=== PATIENT | male | born 1935 | race Caucasian/White ===

== ENCOUNTER 2020-01-09 13:57 | Outpatient (REF) | payer OTHER, MEDICARE, BC, SELFPAY ==
[2020-01-09 14:06] LABS: MANUAL DIFF FLAG NO
[2020-01-09 14:10] LABS: Basophils Percent Auto 0.2 % (0-2); Eosinophils Absolute Auto 0.1 X10*3/uL (0.0-0.4); Eosinophils Percent Auto 1.5 % (0-4); Hemoglobin 13.1 g/dl (14.0-18.0); Imm Gran Abs Auto 0.03 X10*3/uL (0.00-0.03); Imm Gran Pct Auto 0.5 % (0.0-0.4); Lymphocytes Absolute Auto 1.9 X10*3/uL (1.2-4.9); Lymphocytes Percent Auto 28.7 % (20-40); Mean Corpuscular Hemoglobin 31.3 pg (27.0-33.0); Mean Corpuscular Volume 98.1 fL (80-98); Mean Platelet Volume 10.7 fL (9.4-12.4); Monocytes Absolute Auto 0.8 X10*3/uL (0.1-1.2); Monocytes Percent Auto 12.2 % (2-11); Neutrophils Absolute Auto 3.7 X10*3/uL (2.0-8.3); Neutrophils Percent Auto 56.9 % (45-73); Platelet Count 193 X10*3/uL (160-400); Red Blood Count 4.18 X10*6/uL (4.60-5.80); Red Cell Distribution Width 14.7 % (11.0-16.0); White Blood Count 6.5 X10*3/uL (4.8-10.8)
[2020-01-09 15:17] LABS: Alanine Aminotransferase 23 U/L (0-40); Alkaline Phosphatase 65 U/L (39-117); Anion Gap 13 (12-20); Aspartate Amino Transferase 23 U/L (5-37); Bilirubin Total 0.9 mg/dL (0.0-1.0); Blood Urea Nitrogen 27 mg/dL (9-16); Calcium 8.7 mg/dL (8.4-10.2); Carbon Dioxide 30 mmol/L (22-29); Chloride 101 mmol/L (96-108); Cholesterol 187 mg/dL; Estimated Glomerular Filt Rate 58; HDL Cholesterol 70 mg/dL; LDL Cholesterol Calculated 106 mg/dl; Potassium 4.3 mmol/l (3.3-5.1); Sodium 140 mmol/L (135-145); Total Protein 6.5 g/dL (6.5-8.0); Triglycerides 55 mg/dL
[2020-01-09 15:30] LABS: Glucose Fasting 41 mg/dL (60-99)
--- NOTE | 2020-03-13 15:15 | ECG_ITS ---
Hook-up date: 2020-03-12 16:18:00 Duration: 05:30:00 Test Indications: PERSISTANT AFIB Medications: 85904 QRS complexes 495 Ventricular ectopics which represent 1 % of total QRS comp. * Supraventricular ectopics which represent % of total QRS comp. * Paced QRS complexs which represent % of total QRS comp. VENTRICULAR ECTOPY 467 Isolated 0 Bigeminal Cycles 14 Couplets 0 Runs 0 Beats in Runs * Beats LONGEST at * BPM at :: -- * Beats FASTEST at * BPM at :: -- SUPRAVENTRICULAR ECTOPY * Isolated * Couplets * Runs * Beats in Runs * Beats LONGEST at * BPM at :: -- * Beats FASTEST at * BPM at :: -- HEART RATES 58 MIN at 20:15:22 2020-03-12 122 AVG 193 MAX at 16:22:57 2020-03-12 LONGEST RR 1.4800 secs at 20:23:12 2020-03-12 S-T LEVELS Channel 1 - 128 mm at 16:18:00 2020-03-12 - 128 mm at 16:18:00 2020-03-12 Channel 2 - 128 mm at 16:18:00 2020-03-12 - 128 mm at 16:18:00 2020-03-12 Channel 3 - 128 mm at 03:53:71 -- - 128 mm at 03:53:71 Duration only 5:30 Hrs; Underlying rhythm atrial fibrillation; Average ventricular rate 122/min; About 79% of the time, rate >100/min; Overall, inadequate rate control of atrial fibrillation; Patient did not return diary Referred By: Hilda Jackman Overread By: HILDA JACKMAN
== END 2020-01-09 13:58 | disposition home or self-care (01) ==
LOC: HO.LNP 13:57
PROVIDERS: Visit Provider Family Medicine
DX: I48.91 Unspecified atrial fibrillation (principal); I13.0 Hypertensive heart and chronic kidney disease with heart failure and stage 1 through stage 4 chronic kidney disease, or unspecified chronic kidney disease; I50.9 Heart failure, unspecified; N18.9 Chronic kidney disease, unspecified
CPT/HCPCS: 36415; 80053; 80061; 84443; 85025

== ENCOUNTER → 2020-03-12 14:41 | Outpatient (BNVA) | payer BC, SELFPAY | PROVIDERS: PCP Family Medicine; Referring Provider Family Medicine; Visit Provider Internal Medicine | DX: I48.19 Other persistent atrial fibrillation (principal); I42.9 Cardiomyopathy, unspecified | CPT/HCPCS: 93005; 93226; 99212 ==

== ENCOUNTER → 2020-03-19 14:01 | Outpatient (BNVA) | payer BC, SELFPAY | PROVIDERS: PCP Family Medicine; Referring Provider Family Medicine; Visit Provider Internal Medicine | DX: I48.19 Other persistent atrial fibrillation (principal); I42.9 Cardiomyopathy, unspecified | CPT/HCPCS: 93005; 99212 ==

== ENCOUNTER 2020-04-22 20:41 | Inpatient (IN) | payer MEDICARE, BC, SELFPAY ==
[2020-04-22] VITALS (8 sets, daily range): BP systolic 110–129; BP diastolic 63–94; PULSE 92–146; RESP 16–26; TEMP 36.5–37.6; O2SAT 88–95; BMI 21.8
--- NOTE | 2020-04-22 | ECG_ITS ---
Test Reason : TACHYCARDIA Blood Pressure : / mmHG Vent. Rate : 146 BPM Atrial Rate : 147 BPM P-R Int : 000 ms QRS Dur : 092 ms QT Int : 260 ms P-R-T Axes : 000 097 -65 degrees QTc Int : 405 ms Atrial fibrillation with rapid ventricular response with premature ventricular or aberrantly conducted complexes Rightward axis Nonspecific ST and T wave abnormality Abnormal ECG When compared to the previous EKG of 28 jan 2020, no significant changes Referred By: Generic ED Physician Electronically Signed By:HILDA JACKMAN
--- NOTE | 2020-04-22 | XR_ITS ---
EXAMINATION: XR CHEST CLINICAL INFORMATION: Chest pain. Cough. COMPARISON: Chest x-ray 11/29/2019 TECHNIQUE: Frontal view of the chest was obtained. 9:36 PM FINDINGS: Lung volume is low. No significant central pulmonary vascular congestion. There is a dense left lung base due to left pleural effusion and probable basilar consolidation/atelectasis. There is minimal blunting of the right costophrenic angle, probable small right pleural effusion. XR/XR chest 1V IMPRESSION: Low lung volume. No significant central pulmonary vascular congestion. Dense left lung base due to left pleural effusion and basilar consolidation. Probable small right pleural effusion.
[2020-04-22 21:21] LABS: MANUAL DIFF FLAG NO
[2020-04-22 21:26] LABS: Basophils Percent Auto 0.2 % (0-2); Eosinophils Percent Auto 0.2 % (0-4); Hematocrit 54.3 % (42-52); Hemoglobin 17.2 g/dl (14.0-18.0); Imm Gran Abs Auto 0.04 X10*3/uL (0.00-0.03); Imm Gran Pct Auto 0.5 % (0.0-0.4); Lymphocytes Absolute Auto 1.4 X10*3/uL (1.2-4.9); Lymphocytes Percent Auto 16.1 % (20-40); Mean Corpuscular HGB Conc 31.7 g/dl (31.0-36.0); Mean Corpuscular Hemoglobin 30.7 pg (27.0-33.0); Mean Platelet Volume 11.8 fL (9.4-12.4); Monocytes Absolute Auto 0.8 X10*3/uL (0.1-1.2); Monocytes Percent Auto 9.2 % (2-11); Neutrophils Absolute Auto 6.3 X10*3/uL (2.0-8.3); Neutrophils Percent Auto 73.8 % (45-73); Platelet Count 186 X10*3/uL (160-400); Red Cell Distribution Width 13.7 % (11.0-16.0); White Blood Count 8.5 X10*3/uL (4.8-10.8)
[2020-04-22 21:41] LABS: INTERNATIONAL NORM RATIO 1.9 (0.9-1.1); Prothrombin Time 22.6 SEC (10.8-13.0)
--- NOTE | 2020-04-22 21:43 | ED.GENADULT ---
HPI - General Adult General Chief complaint: Dyspnea Stated complaint: covid Time Seen by Provider: 04/22/20 21:29 Source: patient Mode of arrival: EMS Limitations: no limitations History of Present Illness HPI narrative: 85-year-old male who presents emergency department for evaluation of chest pain shortness of breath and productive cough. The patient states that he developed chest pain approximately 2-3 days prior. Points to his mid sternal area when asked to localize the pain. The pain is a sharp, constant pain which radiates to his back. The patient denied any radiation to his neck, jaw or arms. He states the pain is 5/10 at its worse and is worse with movement. Patient states that he has had a cough over the past 24 hours which is productive of pink frothy phlegm. He denied fever or chills. He states that he was feeling weak and lightheaded. He has been noncompliant with his furosemide since it makes him urinate frequently. Related Data Home Medications Medication Instructions Recorded Confirmed apixaban 5 mg tablet 5 mg PO BID 01/17/20 03/19/20 furosemide 40 mg tablet 40 mg PO DAILY 01/17/20 03/19/20 digoxin 125 mcg (0.125 mg) tablet 125 mcg PO DAILY 03/12/20 03/19/20 metoprolol succinate 25 mg 50 mg PO BID tab 03/19/20 03/19/20 tablet,extended release 24 hr Previous Rx's Medication Instructions Recorded amiodarone 200 mg tablet 200 mg PO DAILY #90 tab 02/21/20 Allergies Allergy/AdvReac Type Severity Reaction Status Date / Time streptomycin [Streptomycin] Allergy Mild UNKNOWN Verified 03/19/20 14:05 Penicillins Allergy Unknown unk Verified 03/19/20 14:05 Sulfa (Sulfonamide Allergy Unknown UNKNOWN Verified 03/19/20 14:05 Antibiotics) [SULFA (SULFONAMIDE ANTIBIOTICS)] Review of Systems Review of Systems: Yes all other systems are reviewed and are negative Neurologic: Reports Abnormal speech present FOR[facility]LY [facility] Past Medical History Medical History Cardiomyopathy, unspecified CHF (congestive heart failure) HTN (hypertension) HTN (hypertension) Persistent atrial fibrillation Family History Family History Father No problems noted. Mother No problems noted. Social History Social History Alcohol intake: never Smoking Status: Never smoker Use of substances other than those prescribed or required for medical reasons: No Advance Directives: No Advance Directives Information Provided: No Physical Exam Vital Signs: Vital Signs: Last Vital Signs Temp 97.7 F 04/22/20 23:42 Pulse 93 04/22/20 23:42 Resp 18 04/22/20 23:42 BP 127/94 H 04/22/20 23:42 Pulse Ox 93 04/22/20 21:53 Body Mass Index 21.8 Const: General: cooperative Nutritional Appearance: other (Very thin) Orientation/consciousness: oriented to person and oriented to place Limitations: no limitations HENMT: Head: Yes normal to inspection, Yes normocephalic and Yes atraumatic Ears: external ears normal General nose exam: Normal external nose present Face and sinus: Yes normal facial exam Mouth: Normal oral and palatal mucosa present Throat: Yes posterior oropharynx normal Eyes: Periorbital: periorbital findings normal Eyelids: Yes eyelids normal Conjunctivae: conjunctivae normal Sclerae: sclerae normal Corneas: corneas normal Pupils: Equal, round and reactive pupils present Direct Ophthalmoscopy: normal light reflex Neck: Neck: Yes full ROM, Yes no lymphadenopathy, Yes no meningeal signs, Yes trachea midline and Yes supple Chest: Chest palpation & inspection: normal inspection of the chest and tenderness (Anterior chest wall tenderness) Resp: Effort & Inspection: able to speak in complete sentences Auscultation: rales bilateral in the lower lung landeros and rhonchi throughout Cardio: Rate: regular rate and tachycardic Rhythm: abnormal rhythm irregularly irregular Heart sounds: S1 normal heart sound present, S2 normal heart sound present and no murmurs GI: Inspection: Yes normal to inspection Palpation (GI): Soft to palpation, nontender, no guarding, not rigid and No hepatosplenomegaly present : General: Yes no CVA tenderness Back/Spine/Pelvis: Back: no CVA tenderness Cervical Spine: normal cervical lordosis Thoracic/Lumbar Spine: thoracic and lumbar spine normal to inspection Skin: Lesions: no lesions Rashes: no rashes Wounds: no wounds Neuro: General: oriented to person, oriented to place and no meningeal signs Cranial nerves: Yes Equal, round and reactive pupils present Cognition (Neuro): normal cognition Speech: Abnormal speech present Motor exam (neuro): 5/5 motor strength present throughout Extrem: General: Yes normal to inspection, Yes full ROM and Yes edema (Symmetric, 2+ pitting) Psych: Appearance: well kempt Mental Status: mental status grossly normal Speech and movement: Normal speech and movement present Affect: normal affect Attitude: cooperative Thought process: Normal thought process present Thought content: Normal thought content present Course Course Course Narrative: 85-year-old male who presents emergency department for evaluation of constant chest pain times 2-3 days which came on gradually, associated with shortness of breath and a pink frothy productive cough, on presentation the patient has atrial fibrillation with a rapid ventricular response, lung exam revealed rhonchi and rales. Patient does have chronic atrial fibrillation cardiomegaly and congestive heart failure. Impression is the patient has CHF at this time. At his rapid ventricular response was treated with diltiazem 15 mg IV, he was also given Lasix 20 mg IV. 2344: The patient so heart rate did come down after receiving the IV diltiazem and is 90-100 beats per minute. He remains in atrial fibrillation. The patient's digoxin level was blood detectable limits. The patient's laboratory evaluation revealed an elevated H&H of 17 and 54.3 and an elevated BUN and creatinine of 41 and 1.8. The patient's BNP was elevated at 1087. Patient's chest x-ray did reveal some increased interstitial markings with bilateral pleural effusions left greater than right and a left lower lung consolidation. The patient's COVID, influenza and RSV tests were negative. Impression is the patient does have some mild CHF with a left lower lobe pneumonia. He does have an elevated lactic acid of 3.3 however I think that a fluid bolus would be contraindicated given his cardiomegaly and his significant peripheral edema. The patient is not hypotensive and he will be treated with Levaquin 750 mg IV for pneumonia after 2 sets of blood cultures are obtained. His chest pain was treated with Tylenol 975 mg orally. I did discuss the patient's presentation with the covering hospitalist the patient will be admitted for further treatment. Medical Decision Making Lab Data Result diagrams: 04/22/20 21:13 04/22/20 21:13 Labs: Lab Results 04/22/20 04/22/20 04/22/20 Range/Units 21:10 21:10 21:12 WBC (4.8-10.8) X10*3/uL RBC (4.60-5.80) X10*6/uL Hgb (14.0-18.0) g/dl Hct (42-52) % MCV (80-98) fL MCH (27.0-33.0) pg MCHC (31.0-36.0) g/dl RDW (11.0-16.0) % Plt Count (160-400) X10*3/uL MPV (9.4-12.4) fL Immature Gran % (Auto) (0.0-0.4) % Neut % (Auto) (45-73) % Lymph % (Auto) (20-40) % Swift % (Auto) (2-11) % Eos % (Auto) (0-4) % Baso % (Auto) (0-2) % Lymph # (Auto) (1.2-4.9) X10*3/uL Swift # (Auto) (0.1-1.2) X10*3/uL Eos # (Auto) (0.0-0.4) X10*3/uL Baso # (Auto) (0.0-0.2) X10*3/uL Abs Immat Gran (auto) (0.00-0.03) X10*3/uL Absolute Neuts (auto) (2.0-8.3) X10*3/uL Absolute Nucleated RBC (0.0-0.012) X10*3/uL Nucleated RBC % (auto) (0.0-0.2) /100WBC PT (10.8-13.0) SEC INR (0.9-1.1) APTT (24.1-38.0) SEC Sodium (135-145) mmol/L Potassium (3.3-5.1) mmol/l Chloride (96-108) mmol/L Carbon Dioxide (22-29) mmol/L Anion Gap (12-20) BUN (9-16) mg/dL Creatinine (0.5-1.4) mg/dL Estim Creat Clear Calc Estimated GFR Random Glucose (60-115) mg/dL Lactic Acid 3.3 H* (0.5-2.0) mmol/L Calcium (8.4-10.2) mg/dL Total Bilirubin (0.0-1.0) mg/dL AST (5-37) U/L ALT (0-40) U/L Alkaline Phosphatase (39-117) U/L Troponin I High Sens 26.0 (<3.5-35.0) ng/L B-Natriuretic Peptide 1087 H (<100) pg/mL Total Protein (6.5-8.0) g/dL Albumin (3.5-5.0) g/dL Digoxin (0.8-2.0) ng/mL Coronavirus (PCR) NEGATIVE (Negative) Influenza Type A (PCR) NEGATIVE (Negative) Influenza Type B (PCR) NEGATIVE (Negative) RSV RNA Qual (PCR) NEGATIVE (Negative) 04/22/20 04/22/20 04/22/20 Range/Units 21:13 21:13 21:13 WBC 8.5 (4.8-10.8) X10*3/uL RBC 5.60 D (4.60-5.80) X10*6/uL Hgb 17.2 D (14.0-18.0) g/dl Hct 54.3 H D (42-52) % MCV 97.0 (80-98) fL MCH 30.7 (27.0-33.0) pg MCHC 31.7 (31.0-36.0) g/dl RDW 13.7 (11.0-16.0) % Plt Count 186 (160-400) X10*3/uL MPV 11.8 (9.4-12.4) fL Immature Gran % (Auto) 0.5 H (0.0-0.4) % Neut % (Auto) 73.8 H (45-73) % Lymph % (Auto) 16.1 L (20-40) % Swift % (Auto) 9.2 (2-11) % Eos % (Auto) 0.2 (0-4) % Baso % (Auto) 0.2 (0-2) % Lymph # (Auto) 1.4 (1.2-4.9) X10*3/uL Swift # (Auto) 0.8 (0.1-1.2) X10*3/uL Eos # (Auto) 0.0 (0.0-0.4) X10*3/uL Baso # (Auto) 0.0 (0.0-0.2) X10*3/uL Abs Immat Gran (auto) 0.04 H (0.00-0.03) X10*3/uL Absolute Neuts (auto) 6.3 (2.0-8.3) X10*3/uL Absolute Nucleated RBC 0.000 (0.0-0.012) X10*3/uL Nucleated RBC % (auto) 0.0 (0.0-0.2) /100WBC PT 22.6 H (10.8-13.0) SEC INR 1.9 H (0.9-1.1) APTT 42.9 H (24.1-38.0) SEC Sodium 139 (135-145) mmol/L Potassium 5.1 (3.3-5.1) mmol/l Chloride 103 (96-108) mmol/L Carbon Dioxide 20 L (22-29) mmol/L Anion Gap 21 H (12-20) BUN 41 H D (9-16) mg/dL Creatinine 1.81 H (0.5-1.4) mg/dL Estim Creat Clear Calc 30.8 Estimated GFR 36 Random Glucose 156 H (60-115) mg/dL Lactic Acid (0.5-2.0) mmol/L Calcium 9.8 D (8.4-10.2) mg/dL Total Bilirubin 1.4 H (0.0-1.0) mg/dL AST 36 D (5-37) U/L ALT 49 H (0-40) U/L Alkaline Phosphatase 81 D (39-117) U/L Troponin I High Sens (<3.5-35.0) ng/L B-Natriuretic Peptide (<100) pg/mL Total Protein 7.4 (6.5-8.0) g/dL Albumin 4.5 (3.5-5.0) g/dL Digoxin (0.8-2.0) ng/mL Coronavirus (PCR) (Negative) Influenza Type A (PCR) (Negative) Influenza Type B (PCR) (Negative) RSV RNA Qual (PCR) (Negative) 04/22/20 Range/Units 22:21 WBC (4.8-10.8) X10*3/uL RBC (4.60-5.80) X10*6/uL Hgb (14.0-18.0) g/dl Hct (42-52) % MCV (80-98) fL MCH (27.0-33.0) pg MCHC (31.0-36.0) g/dl RDW (11.0-16.0) % Plt Count (160-400) X10*3/uL MPV (9.4-12.4) fL Immature Gran % (Auto) (0.0-0.4) % Neut % (Auto) (45-73) % Lymph % (Auto) (20-40) % Swift % (Auto) (2-11) % Eos % (Auto) (0-4) % Baso % (Auto) (0-2) % Lymph # (Auto) (1.2-4.9) X10*3/uL Swift # (Auto) (0.1-1.2) X10*3/uL Eos # (Auto) (0.0-0.4) X10*3/uL Baso # (Auto) (0.0-0.2) X10*3/uL Abs Immat Gran (auto) (0.00-0.03) X10*3/uL Absolute Neuts (auto) (2.0-8.3) X10*3/uL Absolute Nucleated RBC (0.0-0.012) X10*3/uL Nucleated RBC % (auto) (0.0-0.2) /100WBC PT (10.8-13.0) SEC INR (0.9-1.1) APTT (24.1-38.0) SEC Sodium (135-145) mmol/L Potassium (3.3-5.1) mmol/l Chloride (96-108) mmol/L Carbon Dioxide (22-29) mmol/L Anion Gap (12-20) BUN (9-16) mg/dL Creatinine (0.5-1.4) mg/dL Estim Creat Clear Calc Estimated GFR Random Glucose (60-115) mg/dL Lactic Acid (0.5-2.0) mmol/L Calcium (8.4-10.2) mg/dL Total Bilirubin (0.0-1.0) mg/dL AST (5-37) U/L ALT (0-40) U/L Alkaline Phosphatase (39-117) U/L Troponin I High Sens (<3.5-35.0) ng/L B-Natriuretic Peptide (<100) pg/mL Total Protein (6.5-8.0) g/dL Albumin (3.5-5.0) g/dL Digoxin < 0.3 L (0.8-2.0) ng/mL Coronavirus (PCR) (Negative) Influenza Type A (PCR) (Negative) Influenza Type B (PCR) (Negative) RSV RNA Qual (PCR) (Negative) Discharge Plan Discharge Clinical Impression: Atrial fibrillation with RVR, CHF (congestive heart failure), Pneumonia Patient Disposition: Admitted As Inpatient Prescriptions: No Action amiodarone 200 mg tablet 200 mg PO DAILY Qty: 90 RF: 1 furosemide 40 mg tablet 40 mg PO DAILY RF: 0 Eliquis 5 mg tablet 5 mg PO BID RF: 0 digoxin 125 mcg (0.125 mg) tablet 125 mcg PO DAILY RF: 0 metoprolol succinate 25 mg tablet extended release 24 hr 50 mg PO BID RF: 0
[2020-04-22 21:44] LABS: Partial Thromboplastin Time 42.9 SEC (24.1-38.0)
[2020-04-22 21:49] LABS: Lactic Acid 3.3 mmol/L (0.5-2.0)
[2020-04-22] MEDS: Furosemide 20 MG/2 ML VIAL IVPUSH (21:50)
[2020-04-22] MEDS: dilTIAZem HCL 50 MG/10 ML VIAL 15 MG IVPUSH (21:50)
[2020-04-22 21:53] LABS: Alanine Aminotransferase 49 U/L (0-40); Albumin Level 4.5 g/dL (3.5-5.0); Alkaline Phosphatase 81 U/L (39-117); Anion Gap 21 (12-20); Aspartate Amino Transferase 36 U/L (5-37); Bilirubin Total 1.4 mg/dL (0.0-1.0); Blood Urea Nitrogen 41 mg/dL (9-16); Calcium 9.8 mg/dL (8.4-10.2); Carbon Dioxide 20 mmol/L (22-29); Chloride 103 mmol/L (96-108); Creatinine Clr Calc Pharmacy 30.8; Estimated Glomerular Filt Rate 36; Glucose Random 156 mg/dL (60-115); Potassium 5.1 mmol/l (3.3-5.1); Sodium 139 mmol/L (135-145); Total Protein 7.4 g/dL (6.5-8.0)
[2020-04-22 22:18] LABS: B Type Natriuretic Peptide 1087 pg/mL (<100)
[2020-04-22 22:32] LABS: Influenza A PCR NEGATIVE (Negative); Influenza B PCR NEGATIVE (Negative); Resp Syncy Virus RNA Qual PCR NEGATIVE (Negative); SARS COV2 PCR INHOUSE NEGATIVE (Negative)
[2020-04-22 23:17] LABS: Digoxin < 0.3 ng/mL (0.8-2.0)
[2020-04-22 23:18] LABS: Reflex Lactate? Lactic Acid Added
[2020-04-22] MEDS: levoFLOXacin/D5W 750 MG/150 ML PIGGYBACK 100 MG IV (23:43)
[2020-04-22] MEDS: Acetaminophen 325 MG TABLET 975 MG PO (23:43)
[2020-04-23] VITALS (20 sets, daily range): BP systolic 98–156; BP diastolic 55–103; PULSE 78–136; RESP 16–28; TEMP 36.2–37.3; O2SAT 93–98; BMI 20.2
[2020-04-23] MEDS: Furosemide 40 MG TABLET PO (00:08)
--- NOTE | 2020-04-23 00:08 | PC.NURSE ---
Hospitalist at bedside for eval. ED techs at bedside to obtain labs. VSS. Pt medicated per JUN. Continue to monitor.
[2020-04-23 00:45] LABS: ~Lactic Acid-LAB USE ONLY 3.4 mmol/L (0.5-2.0)
[2020-04-23 00:52] LABS: Troponin-I High Sensitivity 26.5 ng/L (<3.5-35.0)
[2020-04-23] MEDS: 0.9 % Sodium Chloride Flush 3 ML SYRINGE IVFLUSH ×3 (00:54→18:01)
[2020-04-23 02:16] LABS: Reflex Lactate? 2 Y
[2020-04-23 03:09] LABS: ~Lactic Acid-LAB USE ONLY 2.7 mmol/L (0.5-2.0)
--- NOTE | 2020-04-23 03:12 | PC.NURSE ---
Addendum entered by Ninfa Hanley 04/23/20 03:39: Pt denies all urinary symptoms at this time. Original Note: This RN at bedside to empty urinal. Urine noted to be benji in color, foul smelling with pyuria and thick sediment. UA sent to lab. Pt awake, resting in bed, denies pain/discomfort. VSS, HR noted to be elevated @ 115-120 bpm. Continue to monitor.
[2020-04-23 03:23] LABS: Glucose Urine UA 100 MG/DL (NEG); Leukocyte Esterase Urine 1+ (NEG); Nitrite Urine POS (NEG); PH 6.5 (5.0-8.0); Urine Blood 3+ (NEG); Urine Ketones NEG (NEG); Urine Protein TRACE MG/DL (NEG-TRACE)
[2020-04-23 03:24] LABS: Appearance Urine TURBID; Color Urine YELLOW
--- NOTE | 2020-04-23 03:25 | PC.NURSE ---
Dr Vazquez contacted via [place] Text due to tachycardia. Pt resting in bed, denies symptoms, HR noted to be 136-150 bpm. Awaiting orders from Taylor.
[2020-04-23 03:40] LABS: Bacteria Urine 4+ /LPF; Mucus Urine 4+ /LPF; RBC Urine 0 /HPF (0); Squamous Epithelial Cell Urine 2+ /LPF
[2020-04-23 03:41] LABS: Oval Fat Bodies Urine NOTED
[2020-04-23] MEDS: Labetalol HCL 100 MG/20 ML VIAL 10 MG IVPUSH (03:43)
[2020-04-23] MEDS: hydrALAZINE HCl 20 MG/ML VIAL 5 MG IVPUSH (03:45)
[2020-04-23] MEDS: cefTRIAXone sodium 1 GM in 0.9 % Sodium Chloride 50 ML IV (03:46)
--- NOTE | 2020-04-23 03:50 | PC.NURSE ---
Medicated per MAR. Pt denies pain/discomfort, resting in bed. VSS. Continue to monitor.
[2020-04-23] MEDS: ondansetron HCL 4 MG/2 ML VIAL IVPUSH (05:09)
[2020-04-23] MEDS: Digoxin 0.5 MG/2 ML AMPUL 0.25 MG IVPUSH (05:20)
[2020-04-23] MEDS: Metoprolol Tartrate 5 MG/5 ML VIAL IVPUSH (05:21)
--- NOTE | 2020-04-23 05:22 | P.HPHOSP_ITS ---
History of Present Illness Date of Service: 04/22/20 Chief Complaint: Chest pain, shortness of breath This is an 85-year-old male with past medical history of CHF, hypertension, AFib who presents to the hospital with complaints of shortness of breath as well as midsternal chest pain. He is also complaining of exhaustion, fatigue. Symptoms started about 2-3 days ago, worsening, his shortness of breath is with minimal exertion. Chest pain is midsternal, nonradiating, 5/10, worse with movement, does not change with deep inspiration, denies any productive cough, denies any fever or chills. He just reports that he has had very low appetite, completely weak and exhausted for the past few days. Denies any fever or chills. Denies any recent travel or sick contacts. Denies any palpitations. When asked about his medications report that he misses most of the medications including his Lasix most of the time because the Lasix makes him pee a lot and his other medications he forgets to take. Reports orthopnea and PND. He is also complaining of lower extremity edema. He is also having urinary frequency and urgency. He otherwise denies any abdominal pain, no diarrhea constipation. To have a heart rate of 115 going up to 136, respiratory rate of 22, blood pressure of 127/94, For WBC count 15.8, hemoglobin of 17.9, hematocrit 55.5, PT of 22.6, INR of 1.9, PTT of 42.9, , potassium 5.1, lactic acid of 3.3, 41, creatinine of 1.81 (baseline around 1.1), BNP of 1087, and UA that is positive for nitrites, leukocyte Estrace and WBC. Chest x-ray shows bilateral pleural effusion as well as leftbasilar consolidation Past medical history: AFib on apixaban, CHF on Lasix, hypertension- seems to be noncompliant with all of his medications Past surgical history: Appendectomy Family history: Significant for heart disease Social history: Comes from home, usually ambulates independently, denies any tobacco alcohol or illicit drugs Review of Systems Review of Systems: Yes all other systems are reviewed and are negative Neurologic: Reports Abnormal speech present [facility] Medical History Cardiomyopathy, unspecified CHF (congestive heart failure) HTN (hypertension) HTN (hypertension) Persistent atrial fibrillation Family History Father No problems noted. Mother No problems noted. Social History Alcohol intake: never Smoking Status: Never smoker Use of substances other than those prescribed or required for medical reasons: No Advance Directives: No Advance Directives Information Provided: No Meds Allergies Allergy/AdvReac Type Severity Reaction Status Date / Time streptomycin [Streptomycin] Allergy Mild UNKNOWN Verified 03/19/20 14:05 Penicillins Allergy Unknown unk Verified 03/19/20 14:05 Sulfa (Sulfonamide Allergy Unknown UNKNOWN Verified 03/19/20 14:05 Antibiotics) [SULFA (SULFONAMIDE ANTIBIOTICS)] Home Medications Medication Instructions Recorded Confirmed Type apixaban 5 mg tablet 5 mg PO BID 01/17/20 04/23/20 History furosemide 40 mg tablet 40 mg PO DAILY 01/17/20 04/23/20 History digoxin 125 mcg (0.125 mg) tablet 125 mcg PO DAILY 03/12/20 04/23/20 History metoprolol succinate 25 mg 25 mg PO BID tab 03/19/20 04/23/20 History tablet,extended release 24 hr Physical Exam Vital Signs and Narrative: Vital Signs: Last Vital Signs Temp 97.9 F 04/23/20 05:10 Pulse 128 H 04/23/20 05:21 Resp 28 H 04/23/20 05:16 BP 128/96 H 04/23/20 05:21 Pulse Ox 95 04/23/20 05:16 Body Mass Index 20.2 Const: Other: Ill-appearing General: cooperative, no acute distress and poor hygiene Orientation/consciousness: patient oriented x3 Eyes: General: appearance normal, both eyes and all related structures Resp: Effort & Inspection: normal respiratory effort and able to speak in complete sentences Cardio: Rate: regular rate Rhythm: regular rhythm GI: Palpation (GI): Soft to palpation Auscultation: normal bowel sounds Skin: Other: chronic skin changes of venous stasis, scaly skin of shins Neuro: General: patient oriented x3 Cognition (Neuro): normal cognition Speech: Abnormal speech present Extrem: Other: 2+ pedal edema bilaterally, skin changes as above Results Labs CBC and Chem 7: 04/23/20 05:22 04/22/20 21:13 Labs: Laboratory Results - last 24 hr 04/22/20 04/22/20 04/22/20 21:10 21:10 21:12 MCV MCH MCHC RDW Plt Count MPV Immature Gran % (Auto) Neut % (Auto) Lymph % (Auto) [place] % (Auto) Eos % (Auto) Baso % (Auto) Lymph # (Auto) [place] # (Auto) Eos # (Auto) Baso # (Auto) Abs Immat Gran (auto) Absolute Neuts (auto) Absolute Nucleated RBC Nucleated RBC % (auto) PT INR APTT Anion Gap Estim Creat Clear Calc Estimated GFR Random Glucose Lactic Acid 3.3 H* Lactic Acid Fup @ 2Hr Lactic Acid Fup @ 4Hr Calcium Total Bilirubin AST ALT Alkaline Phosphatase Troponin I High Sens 26.0 B-Natriuretic Peptide 1087 H Total Protein Albumin Urine Color Urine Appearance Urine pH Ur Specific [place] Urine Protein Urine Glucose (UA) Urine Ketones Urine Blood Urine Nitrite Ur Leukocyte Esterase Urine RBC Urine WBC Ur Squamous Epith Cells Urine Bacteria Urine Mucus Urine Yeast Ur Oval Fat Bodies Digoxin Coronavirus (PCR) NEGATIVE Influenza Type A (PCR) NEGATIVE Influenza Type B (PCR) NEGATIVE RSV RNA Qual (PCR) NEGATIVE 04/22/20 04/22/20 04/22/20 21:13 21:13 21:13 MCV 97.0 MCH 30.7 MCHC 31.7 RDW 13.7 Plt Count 186 MPV 11.8 Immature Gran % (Auto) 0.5 H Neut % (Auto) 73.8 H Lymph % (Auto) 16.1 L [place] % (Auto) 9.2 Eos % (Auto) 0.2 Baso % (Auto) 0.2 Lymph # (Auto) 1.4 [place] # (Auto) 0.8 Eos # (Auto) 0.0 Baso # (Auto) 0.0 Abs Immat Gran (auto) 0.04 H Absolute Neuts (auto) 6.3 Absolute Nucleated RBC 0.000 Nucleated RBC % (auto) 0.0 PT 22.6 H INR 1.9 H APTT 42.9 H Anion Gap 21 H Estim Creat Clear Calc 30.8 Estimated GFR 36 Random Glucose 156 H Lactic Acid Lactic Acid Fup @ 2Hr Lactic Acid Fup @ 4Hr Calcium 9.8 D Total Bilirubin 1.4 H AST 36 D ALT 49 H Alkaline Phosphatase 81 D Troponin I High Sens B-Natriuretic Peptide Total Protein 7.4 Albumin 4.5 Urine Color Urine Appearance Urine pH Ur Specific [place] Urine Protein Urine Glucose (UA) Urine Ketones Urine Blood Urine Nitrite Ur Leukocyte Esterase Urine RBC Urine WBC Ur Squamous Epith Cells Urine Bacteria Urine Mucus Urine Yeast Ur Oval Fat Bodies Digoxin Coronavirus (PCR) Influenza Type A (PCR) Influenza Type B (PCR) RSV RNA Qual (PCR) 04/22/20 04/23/20 04/23/20 22:21 00:12 00:12 MCV MCH MCHC RDW Plt Count MPV Immature Gran % (Auto) Neut % (Auto) Lymph % (Auto) [place] % (Auto) Eos % (Auto) Baso % (Auto) Lymph # (Auto) [place] # (Auto) Eos # (Auto) Baso # (Auto) Abs Immat Gran (auto) Absolute Neuts (auto) Absolute Nucleated RBC Nucleated RBC % (auto) PT INR APTT Anion Gap Estim Creat Clear Calc Estimated GFR Random Glucose Lactic Acid Lactic Acid Fup @ 2Hr 3.4 H* Lactic Acid Fup @ 4Hr Calcium Total Bilirubin AST ALT Alkaline Phosphatase Troponin I High Sens 26.5 B-Natriuretic Peptide Total Protein Albumin Urine Color Urine Appearance Urine pH Ur Specific [place] Urine Protein Urine Glucose (UA) Urine Ketones Urine Blood Urine Nitrite Ur Leukocyte Esterase Urine RBC Urine WBC Ur Squamous Epith Cells Urine Bacteria Urine Mucus Urine Yeast Ur Oval Fat Bodies Digoxin < 0.3 L Coronavirus (PCR) Influenza Type A (PCR) Influenza Type B (PCR) RSV RNA Qual (PCR) 04/23/20 04/23/20 02:38 03:07 MCV MCH MCHC RDW Plt Count MPV Immature Gran % (Auto) Neut % (Auto) Lymph % (Auto) [place] % (Auto) Eos % (Auto) Baso % (Auto) Lymph # (Auto) [place] # (Auto) Eos # (Auto) Baso # (Auto) Abs Immat Gran (auto) Absolute Neuts (auto) Absolute Nucleated RBC Nucleated RBC % (auto) PT INR APTT Anion Gap Estim Creat Clear Calc Estimated GFR Random Glucose Lactic Acid Lactic Acid Fup @ 2Hr Lactic Acid Fup @ 4Hr 2.7 H* Calcium Total Bilirubin AST ALT Alkaline Phosphatase Troponin I High Sens B-Natriuretic Peptide Total Protein Albumin Urine Color YELLOW Urine Appearance TURBID Urine pH 6.5 Ur Specific [place] 1.020 Urine Protein TRACE Urine Glucose (UA) 100 H Urine Ketones NEG Urine Blood 3+ H Urine Nitrite POS H Ur Leukocyte Esterase 1+ H Urine RBC 0 Urine WBC 15-29 H Ur Squamous Epith Cells 2+ Urine Bacteria 4+ Urine Mucus 4+ Urine Yeast 2+ Ur Oval Fat Bodies NOTED Digoxin Coronavirus (PCR) Influenza Type A (PCR) Influenza Type B (PCR) RSV RNA Qual (PCR) Imaging Radiologist's Impressions: Impressions Chest X-Ray 04/22/20 00:00 IMPRESSION: Low lung volume. No significant central pulmonary vascular congestion. Dense left lung base due to left pleural effusion and basilar consolidation. Probable small right pleural effusion. Assessment and Plan (1) Atrial fibrillation with RVR: Status: Acute (2) Essential hypertension: Status: Acute (3) Pneumonia: Qualifiers: Laterality: left Lung location: lower lobe of lung Pneumonia type: due to unspecified organism Qualified Code(s): J18.9 - Pneumonia, unspecified organism Status: Acute (4) Acute kidney injury superimposed on CKD: Status: Acute (5) CHF exacerbation: Qualifiers: Heart failure type: unspecified Qualified Code(s): I50.9 - Heart failure, unspecified Status: Acute (6) Chest pain: Status: Acute (7) Sepsis: Status: Acute (8) UTI (urinary tract infection): Status: Acute This is an 85-year-old male past medical history of CHF, AFib, who presents to the hospital with complaint of shortness of breath as well as chest pain. # Dyspnea - most likely secondary to CHF exacerbation as well pneumonia, less likely secondary to PE - chest x-ray shows evidence of pulmonary congestion, has elevated BNP, chest x- ray is also significant for left-sided consolidation - has leukocytosis, tachycardia, tachypnea - came in satting 95% on room air Plan: - will treat his CHF exacerbation with Lasix, pneumonia with IV antibiotics, - follow blood cultures - monitor respiratory status # sepsis - most likely secondary to UTI as well as pneumonia - UA positive, chest x-ray is also positive for infiltrate - has leukocytosis, tachycardia, tachypnea - will treat with IV antibiotics, follow blood cultures, hold off on IV fluids given his CHF exacerbation # CHF exacerbation - has elevated BNP, pleural effusion, lower extremity edema, orthopnea PND - most likely secondary to noncompliance as well as exacerbated by acute infection - has an ejection fraction of 15-20% per echo done in October 2019 Plan: - will start him on 40 IV Lasix - daily weight, strict I&O, low-sodium diet - will obtain an echocardiogram - cardiology consulted # chest pain - atypical - troponin slightly positive 26 with no delta - no EKG changes suggestive of ACS - most likely secondary to AFib with RVR as well as CHF exacerbation - will monitor on telemetry -consult cardiology and repeat echocardiogram # UTI - urinary symptoms as well as UA positive - will treat with antibiotics - follow cultures # AFib with RVR - most likely secondary to noncompliance with medications as well as acute infection - per cardiology recommendation in the past patient to not be started on Cardizem given his history of low ejection fraction - will continue apixaban, give him 1 dose of IV 0.25 digoxin, continue his amiodarone, continue his metoprolol # pneumonia - infiltrate on chest x-ray, has leukocytosis, dyspnea, - COVID-19 PCR negative, RSV and influenza negative - will start him on IV antibiotics as above - follow cultures # HTN - elevated - resume home meds DVT prophylaxis: Apixaban
[2020-04-23 05:44] LABS: MANUAL DIFF FLAG NO
--- NOTE | 2020-04-23 05:45 | PC.NURSE ---
Addendum entered by Jason Adrian RN 04/23/20 06:15: dr gallegos updated r/t molst form..icu pa present on unit and interviewed patient...code status changed to dnr/dni Original Note: ADMIT TO 260-1 IMC OVERFLOW...AWAKE..ALERT...VAGUE RESPONSES TO QUESTIONS...O2 5 L/M..HIDALGO..FINE DIFFUSE CRACKLES LOWER ROMO...MONITOR ATRIAL FIB HR 120'S-130'S...SBP 120'S-130'S...DBP 90'S...NAILBEDS DUSKY/CYANOTIC..UNABLE TO OBTAIN PERIPHERAL SAO2 READINGS...SAO2 95% VIA RIGHT EARLOBE...DR GALLEGOS UPDATED R/T TO HR/BP/LAB-WORK/EPISODE VOMITING ON ARRIVAL...DIGOXIN 0.25MG IV X1 & LOPRESSOR 5 MG IV X1...REMAINS ATRIAL FIB..CURRENTLY HR 100'S..VOIDED 150ml URINE....LEGS WITH MARKED EDEMA..DENIES CHEST PAIN
[2020-04-23 05:47] LABS: Basophils Percent Auto 0.1 % (0-2); Hematocrit 55.5 % (42-52); Hemoglobin 17.9 g/dl (14.0-18.0); Imm Gran Abs Auto 0.06 X10*3/uL (0.00-0.03); Imm Gran Pct Auto 0.4 % (0.0-0.4); Lymphocytes Absolute Auto 0.8 X10*3/uL (1.2-4.9); Lymphocytes Percent Auto 5.3 % (20-40); Mean Corpuscular HGB Conc 32.3 g/dl (31.0-36.0); Mean Corpuscular Hemoglobin 31.3 pg (27.0-33.0); Monocytes Absolute Auto 0.9 X10*3/uL (0.1-1.2); Monocytes Percent Auto 5.7 % (2-11); Neutrophils Percent Auto 88.5 % (45-73); Platelet Count 181 X10*3/uL (160-400); Red Blood Count 5.72 X10*6/uL (4.60-5.80); Red Cell Distribution Width 13.7 % (11.0-16.0); White Blood Count 15.8 X10*3/uL (4.8-10.8)
[2020-04-23 06:19] LABS: Anion Gap 22 (12-20); Blood Urea Nitrogen 42 mg/dL (9-16); Calcium 9.2 mg/dL (8.4-10.2); Carbon Dioxide 17 mmol/L (22-29); Chloride 104 mmol/L (96-108); Creatinine Clr Calc Pharmacy 29.6; Estimated Glomerular Filt Rate 37; Glucose Random 141 mg/dL (60-115); Potassium 5.3 mmol/l (3.3-5.1); Sodium 138 mmol/L (135-145)
[2020-04-23] MEDS: Azithromycin 500 MG in 0.9 % Sodium Chloride 250 ML 125 MG IV (08:47)
[2020-04-23] MEDS: Amiodarone HCL 200 MG TABLET PO (08:51)
[2020-04-23] MEDS: Furosemide 40 MG/4 ML VIAL IVPUSH ×2 (08:51→18:00)
[2020-04-23] MEDS: Apixaban 5 MG TABLET PO ×2 (08:51→22:16)
[2020-04-23] MEDS: Digoxin 0.125 MG TABLET PO (08:52)
[2020-04-23] MEDS: Metoprolol Succinate ER 25 MG TAB.ER.24H PO ×2 (08:52→11:18)
--- NOTE | 2020-04-23 09:39 | HO.PM.IMPN ---
Subjective Subjective Date of Service: 04/23/20 Interval History: sob Cardiovascular Cardiovascular: Reports no additional cardiovascular complaints Respiratory Respiratory: Reports no additional respiratory complaints Physical Exam Vital Signs: Vital Signs: Last Vital Signs Temp 98.6 F 04/23/20 08:00 Pulse 93 04/23/20 08:52 Resp 24 H 04/23/20 08:00 BP 126/82 04/23/20 08:52 Pulse Ox 96 04/23/20 08:00 Body Mass Index 20.2 General: AO X 3, no acute distress Resp: diminsihed CVS: S1,S2,rapid irregular GI: soft, non tender, non distended Neuro: motor grossly intact Psych: appropriate affect Objective Data Current Medications Generic Name Dose Route Start Last Admin Trade Name Freq PRN Reason Stop Dose Admin Acetaminophen 650 mg 04/22/20 23:51 Acetaminophen 325 Mg Tablet PO Q6H PRN Pain, Mild (Pain Scale 1-3) Amiodarone HCl 200 mg 04/23/20 09:00 04/23/20 08:51 Amiodarone Hcl 200 Mg Tablet PO 200 mg DAILY KEAGAN Administration Apixaban 5 mg 04/23/20 09:00 04/23/20 08:51 Apixaban 5 Mg Tablet PO 5 mg BID KEAGAN Administration Digoxin 0.125 mg 04/23/20 09:00 04/23/20 08:52 Digoxin 0.125 Mg Tablet PO 0.125 mg DAILY KEAGAN Administration Docusate Sodium 100 mg 04/22/20 23:51 Docusate Sodium 100 Mg Capsule PO DAILY PRN Constipation Furosemide 40 mg 04/23/20 09:00 04/23/20 08:51 Furosemide 40 Mg/4 Ml Vial IVPUSH 40 mg BID@0900,1800 KEAGAN Administration Protocol Ceftriaxone Sodium 1 gm/ 50 mls @ 100 mls/hr 04/23/20 04:00 04/23/20 04:41 Sodium Chloride IV Infused Q24H KEAGAN Infusion Azithromycin 500 mg/ Sodium 250 mls @ 125 mls/hr 04/23/20 07:00 04/23/20 08:47 Chloride IV 125 mls/hr Q24H KEAGAN Administration Metoprolol Succinate 25 mg 04/23/20 09:00 04/23/20 08:52 Metoprolol Succinate Er 25 Mg Tab.Er.24h PO 25 mg BID KEAGAN Administration Protocol Ondansetron HCl 4 mg 04/22/20 23:51 04/23/20 05:09 Ondansetron Hcl 4 Mg/2 Ml Vial IVPUSH 4 mg Q8H PRN Administration Nausea and Vomiting Sodium Chloride 3 ml 04/23/20 00:00 04/23/20 08:50 0.9 % Sodium Chloride Flush 3 Ml Syringe IVFLUSH 3 ml QSHIFT KEAGAN Administration Labs CBC & Chem 7: 04/23/20 05:22 04/23/20 05:22 Assessment and Plan (1) Atrial fibrillation with RVR: Status: Acute (2) Essential hypertension: Status: Acute (3) Pneumonia: Status: Acute (4) Acute kidney injury superimposed on CKD: Status: Acute (5) CHF exacerbation: Status: Acute (6) Chest pain: Status: Acute (7) Sepsis: Status: Acute (8) UTI (urinary tract infection): Status: Acute Assessment and Plan: 85-year-old male past medical history of CHF, AFib, who presented to the hospital with complaint of shortness of breath as well as chest pain. sepsis poa and acute hypoxic respiraotry failrue due to pneumonia/uti and acute on chronic systolic chf lasix, cardio, rocephin, azithro, follow up cultures chest pain resolved troponins negative afib with rvr continue eliquis, amio, dig, metoporolol,
--- NOTE | 2020-04-23 09:42 | MHC.CM.PN ---
pt lives alone in home. he has a cousin that lives next door and is close c his other neighbors. one of these libertarian's will provide transportation at [place]. pt has a cane that he uses sometimes and a ch lift to the second floor. he is active c a vna that sees him weekly but he cannot remember the name of the agency at this time. pt denies the need for any other svcs. he reports that he is very independent at baseline. ny plan is to return home c vna that he is already active c. cm to cont. to follow.
--- NOTE | 2020-04-23 10:00 | MHC.CLN ---
PT IS MODERATELY MALNOURISHED WILL START ENSURE TID TO INCREASE PO CONTINUE 2GM NA DIET SEE ALSO CLINICAL NUTRITION ASSESSMENT
--- NOTE | 2020-04-23 10:38 | PM.CNCAR ---
History of Present Illness History of Present Illness Date of Service: 04/23/20 Consult reason: atrial fibrillation Chief complaint: A FIB W RVR, CHF Narrative: This is a cardiology consultation regarding atrial fibrillation. Patient is well known to us. He has difficult to control atrial fibrillation. It has been paroxysmal for more than a decade but in the last year or so he has essentially been atrial fibrillation throughout. He has had several hospitalizations for the same. We did have a plan for JUSTO/cardioversion, but during that hospitalization, he had acute respiratory failure requiring ICU stay. Procedure itself was then abandoned. There has always been a question if he is compliant with all his medications but he states that he is indeed taking his medications at home. He was admitted with complaints including shortness of breath, nonradiating, midsternal chest pain, generalized weakness as well as fatigue. To me however he states that he did not have any chest pain or shortness of breath and he came mainly because of exertion fatigue. He is being treated for combination of pneumonia and heart failure. Review of Systems Review of Systems: Yes all other systems are reviewed and are negative Cardiovascular: Cardiovascular: Reports as per HPI, Reports no additional cardiovascular complaints, Denies acrocyanosis, Denies cool extremities, Denies painful fingertips, Reports chest pain, Denies chest pain at rest, Denies diaphoresis, Denies syncope, Denies irregular heart rhythm, Denies claudication, Denies leg edema, Denies lightheadedness, Denies palpitations and Reports dyspnea Respiratory: Respiratory: Reports cough and Reports dyspnea Neurologic: Reports Abnormal speech present and Denies syncope Endocrine: Endocrine: Denies palpitations [facility] Past Medical History Medical History Cardiomyopathy, unspecified CHF (congestive heart failure) HTN (hypertension) HTN (hypertension) Persistent atrial fibrillation Family History Family History Father No problems noted. Mother No problems noted. Social History Social History Alcohol intake: never Smoking Status: Never smoker Use of substances other than those prescribed or required for medical reasons: No Currently Displaying Signs/Symptoms of Drug Intoxication Withdrawal: No Advance Directives: No Advance Directives Information Provided: No Do you have thoughts of harming others: None Do you have a plan to hurt others: No Plan service: Yes Current occupational status: retired Meds Allergies Allergy/AdvReac Type Severity Reaction Status Date / Time streptomycin [Streptomycin] Allergy Mild UNKNOWN Verified 03/19/20 14:05 Penicillins Allergy Unknown unk Verified 03/19/20 14:05 Sulfa (Sulfonamide Allergy Unknown UNKNOWN Verified 03/19/20 14:05 Antibiotics) [SULFA (SULFONAMIDE ANTIBIOTICS)] Home Medications Medication Instructions Recorded Confirmed Type apixaban 5 mg tablet 5 mg PO BID 01/17/20 04/23/20 History furosemide 40 mg tablet 40 mg PO DAILY 01/17/20 04/23/20 History digoxin 125 mcg (0.125 mg) tablet 125 mcg PO DAILY 03/12/20 04/23/20 History metoprolol succinate 25 mg 25 mg PO BID tab 03/19/20 04/23/20 History tablet,extended release 24 hr Physical Exam Vital Signs: Vital Signs: Last Vital Signs Temp 98.6 F 04/23/20 08:00 Pulse 93 04/23/20 08:52 Resp 24 H 04/23/20 08:00 BP 126/82 04/23/20 08:52 Pulse Ox 96 04/23/20 08:00 Body Mass Index 20.2 Const: General: cooperative, comfortable and no acute distress Orientation/consciousness: patient oriented x3 HENMT: Other: Unremarkable Neck: Neck: Yes normal visual inspection Chest: Chest palpation & inspection: normal inspection of the chest Resp: Auscultation: clear to auscultation bilaterally, no crackles and no wheezes Cardio: Jugular venous distension: no JVD Palpation: normal PMI Heart sounds: S1 normal heart sound present, S2 normal heart sound present, no gallops, no murmurs and no rubs GI: Palpation (GI): Soft to palpation Back/Spine/Pelvis: Other: unremarkable Skin: General skin exam: no rashes or lesions noted Neuro: General: patient oriented x3 Speech: Abnormal speech present Extrem: General: Yes no clubbing, cyanosis or edema and Yes pedal edema (1+) Psych: Mental Status: mental status grossly normal Results Labs and Meds Result diagrams: 04/23/20 05:22 04/23/20 05:22 Lab results: Laboratory Results - last 24 hr 01/04/22/20 04/22/20 21:10 21:10 21:12 WBC RBC Hgb Hct MCV MCH MCHC RDW Plt Count MPV Immature Gran % (Auto) Neut % (Auto) Lymph % (Auto) [place] % (Auto) Eos % (Auto) Baso % (Auto) Lymph # (Auto) [place] # (Auto) Eos # (Auto) Baso # (Auto) Abs Immat Gran (auto) Absolute Neuts (auto) Absolute Nucleated RBC Nucleated RBC % (auto) PT INR APTT Sodium Potassium Chloride Carbon Dioxide Anion Gap BUN Creatinine Estim Creat Clear Calc Estimated GFR Random Glucose Lactic Acid 3.3 H* Lactic Acid Fup @ 2Hr Lactic Acid Fup @ 4Hr Calcium Total Bilirubin AST ALT Alkaline Phosphatase Troponin I High Sens 26.0 B-Natriuretic Peptide 1087 H Total Protein Albumin Urine Color Urine Appearance Urine pH Ur Specific [place] Urine Protein Urine Glucose (UA) Urine Ketones Urine Blood Urine Nitrite Ur Leukocyte Esterase Urine RBC Urine WBC Ur Squamous Epith Cells Urine Bacteria Urine Mucus Urine Yeast Ur Oval Fat Bodies Digoxin Coronavirus (PCR) NEGATIVE Influenza Type A (PCR) NEGATIVE Influenza Type B (PCR) NEGATIVE RSV RNA Qual (PCR) NEGATIVE 04/22/20 04/22/20 04/22/20 21:13 21:13 21:13 WBC 8.5 RBC 5.60 D Hgb 17.2 D Hct 54.3 H D MCV 97.0 MCH 30.7 MCHC 31.7 RDW 13.7 Plt Count 186 MPV 11.8 Immature Gran % (Auto) 0.5 H Neut % (Auto) 73.8 H Lymph % (Auto) 16.1 L Cros[place] % (Auto) 9.2 Eos % (Auto) 0.2 Baso % (Auto) 0.2 Lymph # (Auto) 1.4 Cros[place] # (Auto) 0.8 Eos # (Auto) 0.0 Baso # (Auto) 0.0 Abs Immat Gran (auto) 0.04 H Absolute Neuts (auto) 6.3 Absolute Nucleated RBC 0.000 Nucleated RBC % (auto) 0.0 PT 22.6 H INR 1.9 H APTT 42.9 H Sodium 139 Potassium 5.1 Chloride 103 Carbon Dioxide 20 L Anion Gap 21 H BUN 41 H D Creatinine 1.81 H Estim Creat Clear Calc 30.8 Estimated GFR 36 Random Glucose 156 H Lactic Acid Lactic Acid Fup @ 2Hr Lactic Acid Fup @ 4Hr Calcium 9.8 D Total Bilirubin 1.4 H AST 36 D ALT 49 H Alkaline Phosphatase 81 D Troponin I High Sens B-Natriuretic Peptide Total Protein 7.4 Albumin 4.5 Urine Color Urine Appearance Urine pH Ur Specific [place] Urine Protein Urine Glucose (UA) Urine Ketones Urine Blood Urine Nitrite Ur Leukocyte Esterase Urine RBC Urine WBC Ur Squamous Epith Cells Urine Bacteria Urine Mucus Urine Yeast Ur Oval Fat Bodies Digoxin Coronavirus (PCR) Influenza Type A (PCR) Influenza Type B (PCR) RSV RNA Qual (PCR) 04/22/20 04/23/20 04/23/20 22:21 00:12 00:12 WBC RBC Hgb Hct MCV MCH MCHC RDW Plt Count MPV Immature Gran % (Auto) Neut % (Auto) Lymph % (Auto) [place] % (Auto) Eos % (Auto) Baso % (Auto) Lymph # (Auto) [place] # (Auto) Eos # (Auto) Baso # (Auto) Abs Immat Gran (auto) Absolute Neuts (auto) Absolute Nucleated RBC Nucleated RBC % (auto) PT INR APTT Sodium Potassium Chloride Carbon Dioxide Anion Gap BUN Creatinine Estim Creat Clear Calc Estimated GFR Random Glucose Lactic Acid Lactic Acid Fup @ 2Hr 3.4 H* Lactic Acid Fup @ 4Hr Calcium Total Bilirubin AST ALT Alkaline Phosphatase Troponin I High Sens 26.5 B-Natriuretic Peptide Total Protein Albumin Urine Color Urine Appearance Urine pH Ur Specific [place] Urine Protein Urine Glucose (UA) Urine Ketones Urine Blood Urine Nitrite Ur Leukocyte Esterase Urine RBC Urine WBC Ur Squamous Epith Cells Urine Bacteria Urine Mucus Urine Yeast Ur Oval Fat Bodies Digoxin < 0.3 L Coronavirus (PCR) Influenza Type A (PCR) Influenza Type B (PCR) RSV RNA Qual (PCR) 04/23/20 04/23/20 04/23/20 02:38 03:07 05:22 WBC 15.8 H RBC 5.72 Hgb 17.9 Hct 55.5 H MCV 97.0 MCH 31.3 MCHC 32.3 RDW 13.7 Plt Count 181 MPV 12.0 Immature Gran % (Auto) 0.4 Neut % (Auto) 88.5 H Lymph % (Auto) 5.3 L Cros[place] % (Auto) 5.7 Eos % (Auto) 0.0 Baso % (Auto) 0.1 Lymph # (Auto) 0.8 L [place] # (Auto) 0.9 Eos # (Auto) 0.0 Baso # (Auto) 0.0 Abs Immat Gran (auto) 0.06 H Absolute Neuts (auto) 14.0 H Absolute Nucleated RBC 0.000 Nucleated RBC % (auto) 0.0 PT INR APTT Sodium Potassium Chloride Carbon Dioxide Anion Gap BUN Creatinine Estim Creat Clear Calc Estimated GFR Random Glucose Lactic Acid Lactic Acid Fup @ 2Hr Lactic Acid Fup @ 4Hr 2.7 H* Calcium Total Bilirubin AST ALT Alkaline Phosphatase Troponin I High Sens B-Natriuretic Peptide Total Protein Albumin Urine Color YELLOW Urine Appearance TURBID Urine pH 6.5 Ur Specific [place] 1.020 Urine Protein TRACE Urine Glucose (UA) 100 H Urine Ketones NEG Urine Blood 3+ H Urine Nitrite POS H Ur Leukocyte Esterase 1+ H Urine RBC 0 Urine WBC 15-29 H Ur Squamous Epith Cells 2+ Urine Bacteria 4+ Urine Mucus 4+ Urine Yeast 2+ Ur Oval Fat Bodies NOTED Digoxin Coronavirus (PCR) Influenza Type A (PCR) Influenza Type B (PCR) RSV RNA Qual (PCR) 04/23/20 05:22 WBC RBC Hgb Hct MCV MCH MCHC RDW Plt Count MPV Immature Gran % (Auto) Neut % (Auto) Lymph % (Auto) [place] % (Auto) Eos % (Auto) Baso % (Auto) Lymph # (Auto) [place] # (Auto) Eos # (Auto) Baso # (Auto) Abs Immat Gran (auto) Absolute Neuts (auto) Absolute Nucleated RBC Nucleated RBC % (auto) PT INR APTT Sodium 138 Potassium 5.3 H Chloride 104 Carbon Dioxide 17 L Anion Gap 22 H BUN 42 H Creatinine 1.74 H Estim Creat Clear Calc 29.6 Estimated GFR 37 Random Glucose 141 H Lactic Acid Lactic Acid Fup @ 2Hr Lactic Acid Fup @ 4Hr Calcium 9.2 D Total Bilirubin AST ALT Alkaline Phosphatase Troponin I High Sens B-Natriuretic Peptide Total Protein Albumin Urine Color Urine Appearance Urine pH Ur Specific [place] Urine Protein Urine Glucose (UA) Urine Ketones Urine Blood Urine Nitrite Ur Leukocyte Esterase Urine RBC Urine WBC Ur Squamous Epith Cells Urine Bacteria Urine Mucus Urine Yeast Ur Oval Fat Bodies Digoxin Coronavirus (PCR) Influenza Type A (PCR) Influenza Type B (PCR) RSV RNA Qual (PCR) ECG Attestation: I personally reviewed and interpreted this ECG as follows: Interpretation: Admission EKG with atrial fibrillation at a rate of 146/Min with nonspecific ST-T changes. Currently he is in atrial fibrillation at a rate of about 95-105/Min. Imaging Radiologist's impression: Impressions Chest X-Ray 04/22/20 00:00 IMPRESSION: Low lung volume. No significant central pulmonary vascular congestion. Dense left lung base due to left pleural effusion and basilar consolidation. Probable small right pleural effusion. Assessment and Plan (1) Acute on chronic systolic (congestive) heart failure: Status: Acute (2) Pneumonia: Qualifiers: Laterality: left Lung location: lower lobe of lung Pneumonia type: due to unspecified organism Qualified Code(s): J18.9 - Pneumonia, unspecified organism Status: Acute (3) Cardiomyopathy, unspecified: Qualifiers: Cardiomyopathy type: unspecified Qualified Code(s): I42.9 - Cardiomyopathy, unspecified Status: Acute (4) Persistent atrial fibrillation: Status: Acute Symptoms possibly from some combination of heart failure and infection. Continue home dose of amiodarone, beta-blockers as well as digoxin. Continue with anticoagulation. Empiric diuretics are reasonable as long as the creatinine does not go up too much. Will follow up with you.
[2020-04-23] MEDS: Metoprolol Succinate ER 25 MG TAB.ER.24H 50 MG PO (22:18)
[2020-04-24] VITALS (8 sets, daily range): BP systolic 104–139; BP diastolic 58–79; PULSE 54–85; RESP 16–18; TEMP 36.3–37; O2SAT 94–99; BMI 20.1
[2020-04-24] MEDS: 0.9 % Sodium Chloride Flush 3 ML SYRINGE IVFLUSH ×4 (01:16→23:22)
[2020-04-24] MEDS: cefTRIAXone sodium 1 GM in 0.9 % Sodium Chloride 50 ML IV (03:51)
[2020-04-24 06:42] LABS: MANUAL DIFF FLAG NO
[2020-04-24 06:53] LABS: Basophils Percent Auto 0.2 % (0-2); Hematocrit 51.7 % (42-52); Hemoglobin 16.7 g/dl (14.0-18.0); Imm Gran Abs Auto 0.04 X10*3/uL (0.00-0.03); Imm Gran Pct Auto 0.3 % (0.0-0.4); Lymphocytes Absolute Auto 0.9 X10*3/uL (1.2-4.9); Lymphocytes Percent Auto 7.8 % (20-40); Mean Corpuscular HGB Conc 32.3 g/dl (31.0-36.0); Mean Corpuscular Hemoglobin 30.6 pg (27.0-33.0); Mean Corpuscular Volume 94.9 fL (80-98); Mean Platelet Volume 12.1 fL (9.4-12.4); Monocytes Absolute Auto 1.1 X10*3/uL (0.1-1.2); Monocytes Percent Auto 9.5 % (2-11); Neutrophils Absolute Auto 9.6 X10*3/uL (2.0-8.3); Neutrophils Percent Auto 82.2 % (45-73); Platelet Count 146 X10*3/uL (160-400); Red Blood Count 5.45 X10*6/uL (4.60-5.80); Red Cell Distribution Width 13.6 % (11.0-16.0); White Blood Count 11.6 X10*3/uL (4.8-10.8)
[2020-04-24 07:38] LABS: Anion Gap 18 (12-20); Blood Urea Nitrogen 44 mg/dL (9-16); Calcium 8.6 mg/dL (8.4-10.2); Carbon Dioxide 27 mmol/L (22-29); Chloride 101 mmol/L (96-108); Creatinine Clr Calc Pharmacy 30.4; Estimated Glomerular Filt Rate 39; Glucose Fasting 98 mg/dL (60-99); Magnesium 1.9 mg/dL (1.6-2.6); Sodium 141 mmol/L (135-145)
--- NOTE | 2020-04-24 08:22 | P.CDIC_ITS ---
CDI Concurrent Query Service Date: 04/24/20 Documentation Clarification: Please clarify if you are treating a proba ble/suspected/likely or confirmed: Malnutrition, mild, moderate or severe Please specify if known or other Provider Response: Malnutrition PLEASE DO NOT DELETE/MODIFY EXISTING CONTENT Additional information is needed in order to code to the highest accuracy and appropriate Severity of Illness (SOI). Please clarify the information noted below in your progress notes and discharge summary. Risk Factors/Clinical Indicators/Treatments Nutrition assessment 04/23 - patient is moderately malnourished w BMI 20.2 Ensure TID to increase PO. CDS: Franchesca Martinez CCS,CDIS Contact Number: [phone] Please Review the information above and exercise your independent professional judgment in responding to the query. If you concur, pleas document in the PROGRESS NOTES and DISCHARGE SUMMARY. If you do not agree with the query, please document in the query above. THIS QUERY IS PART OF THE PERMANENT MEDICAL RECORD
[2020-04-24] MEDS: Furosemide 40 MG/4 ML VIAL IVPUSH (08:58)
[2020-04-24] MEDS: Metoprolol Succinate ER 25 MG TAB.ER.24H 50 MG PO ×2 (08:59→20:25)
[2020-04-24] MEDS: Digoxin 0.125 MG TABLET PO (08:59)
[2020-04-24] MEDS: Amiodarone HCL 200 MG TABLET PO (08:59)
[2020-04-24] MEDS: Apixaban 5 MG TABLET PO ×2 (08:59→20:28)
[2020-04-24] MEDS: Azithromycin 500 MG in 0.9 % Sodium Chloride 250 ML 125 MG IV (09:09)
--- NOTE | 2020-04-24 09:42 | HO.PM.IMPN ---
Subjective Subjective Date of Service: 04/24/20 Interval History: feeling a bit better today Cardiovascular Cardiovascular: Reports no additional cardiovascular complaints Respiratory Respiratory: Reports no additional respiratory complaints Physical Exam Vital Signs: Vital Signs: Last Vital Signs Temp 98.0 F 04/24/20 07:13 Pulse 74 04/24/20 08:59 Resp 18 04/24/20 07:13 BP 120/71 04/24/20 07:13 Pulse Ox 95 04/24/20 07:13 Body Mass Index 20.1 General: AO X 3, no acute distress Resp: CTA bilateral CVS: S1,S2,iregular GI: soft, non tender, non distended Neuro: motor grossly intact Psych: appropriate affect Objective Data Current Medications Generic Name Dose Route Start Last Admin Trade Name Freq PRN Reason Stop Dose Admin Acetaminophen 650 mg 04/22/20 23:51 Acetaminophen 325 Mg Tablet PO Q6H PRN Pain, Mild (Pain Scale 1-3) Amiodarone HCl 200 mg 04/23/20 09:00 04/24/20 08:59 Amiodarone Hcl 200 Mg Tablet PO 200 mg DAILY KEAGAN Administration Apixaban 5 mg 04/23/20 09:00 04/24/20 08:59 Apixaban 5 Mg Tablet PO 5 mg BID KEAGAN Administration Digoxin 0.125 mg 04/23/20 09:00 04/24/20 08:59 Digoxin 0.125 Mg Tablet PO 0.125 mg DAILY KEAGAN Administration Docusate Sodium 100 mg 04/22/20 23:51 Docusate Sodium 100 Mg Capsule PO DAILY PRN Constipation Furosemide 40 mg 04/23/20 09:00 04/24/20 08:58 Furosemide 40 Mg/4 Ml Vial IVPUSH 40 mg BID@0900,1800 KEAGAN Administration Protocol Ceftriaxone Sodium 1 gm/ 50 mls @ 100 mls/hr 04/23/20 04:00 04/24/20 05:06 Sodium Chloride IV Infused Q24H KEAGAN Infusion Azithromycin 500 mg/ Sodium 250 mls @ 125 mls/hr 04/23/20 07:00 04/24/20 09:09 Chloride IV 125 mls/hr Q24H KEAGAN Administration Metoprolol Succinate 50 mg 04/23/20 21:00 04/24/20 08:59 Metoprolol Succinate Er 25 Mg Tab.Er.24h PO 50 mg BID KEAGAN Administration Protocol Ondansetron HCl 4 mg 04/22/20 23:51 04/23/20 05:09 Ondansetron Hcl 4 Mg/2 Ml Vial IVPUSH 4 mg Q8H PRN Administration Nausea and Vomiting Sodium Chloride 3 ml 04/23/20 00:00 04/24/20 08:59 0.9 % Sodium Chloride Flush 3 Ml Syringe IVFLUSH 3 ml QSHIFT KEAGAN Administration Labs CBC & Chem 7: 04/24/20 05:57 04/24/20 05:57 Microbiology Microbiology Results: Microbiology 04/23/20 03:04 Urine clean catch - Clean Catch Midstream Urine Culture - Final 04/22/20 21:19 Blood - Venous Blood Culture - Preliminary No growth after 24 hours. 04/22/20 21:10 Blood - Venous Blood Culture - Preliminary No growth after 24 hours. Assessment and Plan (1) Atrial fibrillation with RVR: Status: Acute (2) Essential hypertension: Status: Acute (3) Pneumonia: Status: Acute (4) Acute kidney injury superimposed on CKD: Status: Acute (5) CHF exacerbation: Status: Acute (6) Chest pain: Status: Acute (7) Sepsis: Status: Acute (8) UTI (urinary tract infection): Status: Acute Assessment and Plan: 85-year-old male past medical history of CHF, AFib, who presented to the hospital with complaint of shortness of breath as well as chest pain. sepsis poa and acute hypoxic respiratory failure due to pneumonia/uti and acute on chronic systolic chf continue iv lasix for now - monitor bmp rocephin, azithro, cultures negative so far chest pain resolved troponins negative afib with rvr continue eliquis, amio, dig, metoporolol, rate better controlled
--- NOTE | 2020-04-24 11:23 | PM.PNCARD ---
Subjective Subjective Date of Service: 04/24/20 Interval history: He states that he feels okay. No specific cardiac complaints at this time. Review of Systems Review of Systems Yes all other systems are reviewed and are negative Cardiovascular: Reports as per HPI, Reports no additional cardiovascular complaints, Denies chest pain, Denies chest pain at rest, Denies syncope, Denies irregular heart rhythm, Denies leg edema, Denies lightheadedness, Denies Loss of Consciousness, Denies dyspnea and Denies dyspnea on exertion Respiratory: Denies dyspnea and Denies dyspnea on exertion Reports Abnormal speech present and Denies syncope Physical Exam Vital Signs: Last Vital Signs Temp 98.6 F 04/24/20 11:21 Pulse 83 04/24/20 11:21 Resp 18 04/24/20 11:21 BP 113/61 04/24/20 11:21 Pulse Ox 94 04/24/20 11:21 Body Mass Index 20.1 Const General: cooperative, comfortable and no acute distress Orientation/consciousness: patient oriented x3 HENMT Other: Unremarkable Neck Neck: Yes normal visual inspection Chest Chest palpation & inspection: normal inspection of the chest Resp Auscultation: clear to auscultation bilaterally, no crackles and no wheezes Cardio Jugular venous distension: no JVD Palpation: normal PMI Heart sounds: S1 normal heart sound present, S2 normal heart sound present, no gallops, no murmurs and no rubs GI Palpation (GI): Soft to palpation Back/Spine/Pelvis Other: unremarkable Skin General skin exam: no rashes or lesions noted Neuro General: patient oriented x3 Speech: Abnormal speech present Extrem General: Yes no clubbing, cyanosis or edema and Yes pedal edema (1+) Psych Mental Status: mental status grossly normal Results Labs and Meds Result diagrams: 04/24/20 05:57 04/24/20 05:57 Lab results: Laboratory Results - last 24 hr 04/24/20 04/24/20 05:57 05:57 WBC 11.6 H RBC 5.45 Hgb 16.7 Hct 51.7 MCV 94.9 MCH 30.6 MCHC 32.3 RDW 13.6 Plt Count 146 L MPV 12.1 Immature Gran % (Auto) 0.3 Neut % (Auto) 82.2 H Lymph % (Auto) 7.8 L [place] % (Auto) 9.5 Eos % (Auto) 0.0 Baso % (Auto) 0.2 Lymph # (Auto) 0.9 L [place] # (Auto) 1.1 Eos # (Auto) 0.0 Baso # (Auto) 0.0 Abs Immat Gran (auto) 0.04 H Absolute Neuts (auto) 9.6 H Absolute Nucleated RBC 0.000 Nucleated RBC % (auto) 0.0 Sodium 141 Potassium 5.0 Chloride 101 Carbon Dioxide 27 Anion Gap 18 BUN 44 H Creatinine 1.69 H Estim Creat Clear Calc 30.4 Estimated GFR 39 Fasting Glucose 98 D Calcium 8.6 D Magnesium 1.9 Progress Note: A&P Assessment and plan (1) Acute on chronic systolic (congestive) heart failure: Status: Acute (2) Pneumonia: Status: Acute (3) Cardiomyopathy, unspecified: Status: Acute (4) Persistent atrial fibrillation: Status: Acute Assessment and Plan: Symptoms possibly from some combination of heart failure and infection. Continue home dose of amiodarone, beta-blockers as well as digoxin. Continue with anticoagulation. Can change diuretics back to oral. Atrial fibrillation itself appears well controlled on telemetry with rates only in the 90s. Fall Risk Details Current Medications: Current Medications Generic Name Dose Route Start Last Admin Trade Name Freq PRN Reason Stop Dose Admin Acetaminophen 650 mg 04/22/20 23:51 Acetaminophen 325 Mg Tablet PO Q6H PRN Pain, Mild (Pain Scale 1-3) Amiodarone HCl 200 mg 04/23/20 09:00 04/24/20 08:59 Amiodarone Hcl 200 Mg Tablet PO 200 mg DAILY KEAGAN Administration Apixaban 5 mg 04/23/20 09:00 04/24/20 08:59 Apixaban 5 Mg Tablet PO 5 mg BID KEAGAN Administration Digoxin 0.125 mg 04/23/20 09:00 04/24/20 08:59 Digoxin 0.125 Mg Tablet PO 0.125 mg DAILY KEAGAN Administration Docusate Sodium 100 mg 04/22/20 23:51 Docusate Sodium 100 Mg Capsule PO DAILY PRN Constipation Furosemide 40 mg 04/23/20 09:00 04/24/20 08:58 Furosemide 40 Mg/4 Ml Vial IVPUSH 40 mg BID@0900,1800 KEAGAN Administration Protocol Ceftriaxone Sodium 1 gm/ 50 mls @ 100 mls/hr 04/23/20 04:00 04/24/20 05:06 Sodium Chloride IV Infused Q24H KEAGAN Infusion Azithromycin 500 mg/ Sodium 250 mls @ 125 mls/hr 04/23/20 07:00 04/24/20 11:10 Chloride IV Infused Q24H KEAGAN Infusion Metoprolol Succinate 50 mg 04/23/20 21:00 04/24/20 08:59 Metoprolol Succinate Er 25 Mg Tab.Er.24h PO 50 mg BID KEAGAN Administration Protocol Ondansetron HCl 4 mg 04/22/20 23:51 04/23/20 05:09 Ondansetron Hcl 4 Mg/2 Ml Vial IVPUSH 4 mg Q8H PRN Administration Nausea and Vomiting Sodium Chloride 3 ml 04/23/20 00:00 04/24/20 08:59 0.9 % Sodium Chloride Flush 3 Ml Syringe IVFLUSH 3 ml QSHIFT KEAGAN Administration Time Spent With Patient Time: Total time spent is greater than 50% in coordination of care (as documented) at patient's floor/unit and/or counseling patient: Time with patient: less than 15 minutes
--- NOTE | 2020-04-24 12:47 | P.CDIC_ITS ---
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 Please clarify the information noted below in your progress notes and discharge summary. Risk Factors/Clinical Indicators/Treatments History of CKD Problem list: Chronic renal failure PN: Assessment/plan: 04/23 - LAUREN superimposed on CKD. Cr: 1.81 1.74 1.69 Bun: 41 42 44 Gfr: 36 37 39 CDS: Franchesca Martinez CCS, CDIS Contact Number: [phone] Please Review the information above and exercise your independent professional judgment in responding to the query. If you concur, pleas document in the PROGRESS NOTES and DISCHARGE SUMMARY. If you do not agree with the query, please document in the query above. THIS QUERY IS PART OF THE PERMANENT MEDICAL RECORD
[2020-04-25] VITALS (8 sets, daily range): BP systolic 119–149; BP diastolic 69–89; PULSE 68–82; RESP 18–20; TEMP 36–36.7; O2SAT 96–98; BMI 19.6
[2020-04-25] MEDS: cefTRIAXone sodium 1 GM in 0.9 % Sodium Chloride 50 ML IV (04:01)
[2020-04-25] MEDS: Azithromycin 500 MG in 0.9 % Sodium Chloride 250 ML 125 MG IV (06:43)
[2020-04-25 07:05] LABS: MANUAL DIFF FLAG NO
[2020-04-25 07:09] LABS: Basophils Percent Auto 0.1 % (0-2); Eosinophils Percent Auto 0.1 % (0-4); Hematocrit 50.5 % (42-52); Hemoglobin 16.5 g/dl (14.0-18.0); Imm Gran Abs Auto 0.05 X10*3/uL (0.00-0.03); Imm Gran Pct Auto 0.4 % (0.0-0.4); Lymphocytes Absolute Auto 0.8 X10*3/uL (1.2-4.9); Lymphocytes Percent Auto 6.2 % (20-40); Mean Corpuscular HGB Conc 32.7 g/dl (31.0-36.0); Mean Corpuscular Hemoglobin 31.1 pg (27.0-33.0); Mean Corpuscular Volume 95.1 fL (80-98); Mean Platelet Volume 11.9 fL (9.4-12.4); Monocytes Percent Auto 8.2 % (2-11); Neutrophils Absolute Auto 10.4 X10*3/uL (2.0-8.3); Platelet Count 160 X10*3/uL (160-400); Red Blood Count 5.31 X10*6/uL (4.60-5.80); Red Cell Distribution Width 13.4 % (11.0-16.0); White Blood Count 12.3 X10*3/uL (4.8-10.8)
[2020-04-25 07:42] LABS: Anion Gap 15 (12-20); Blood Urea Nitrogen 36 mg/dL (9-16); Calcium 8.1 mg/dL (8.4-10.2); Carbon Dioxide 32 mmol/L (22-29); Chloride 99 mmol/L (96-108); Creatinine Clr Calc Pharmacy 36.6; Estimated Glomerular Filt Rate 49; Glucose Fasting 104 mg/dL (60-99); Magnesium 1.8 mg/dL (1.6-2.6); Potassium 3.6 mmol/l (3.3-5.1); Sodium 142 mmol/L (135-145)
[2020-04-25] MEDS: Amiodarone HCL 200 MG TABLET PO (08:58)
[2020-04-25] MEDS: Apixaban 5 MG TABLET PO ×2 (08:58→20:13)
[2020-04-25] MEDS: Metoprolol Succinate ER 25 MG TAB.ER.24H 50 MG PO ×2 (09:01→20:13)
[2020-04-25] MEDS: Furosemide 40 MG TABLET PO (09:01)
[2020-04-25] MEDS: Digoxin 0.125 MG TABLET PO (09:01)
--- NOTE | 2020-04-25 10:34 | HO.PM.IMPN ---
Subjective Subjective Date of Service: 04/25/20 Interval History: feeling a bit worse today Cardiovascular Cardiovascular: Reports no additional cardiovascular complaints Gastrointestinal Gastrointestinal: Reports no additional gastrointestinal complaints Physical Exam Vital Signs: Vital Signs: Last Vital Signs Temp 97.9 F 04/25/20 08:58 Pulse 81 04/25/20 09:01 Resp 20 04/25/20 08:58 BP 119/74 04/25/20 09:01 Pulse Ox 97 04/25/20 08:58 Body Mass Index 19.6 General: AO X 3, no acute distress Resp: diminished CVS: S1,S2,iregular GI: soft, non tender, non distended Neuro: motor grossly intact Psych: appropriate affect Objective Data Current Medications Generic Name Dose Route Start Last Admin Trade Name Freq PRN Reason Stop Dose Admin Acetaminophen 650 mg 04/22/20 23:51 Acetaminophen 325 Mg Tablet PO Q6H PRN Pain, Mild (Pain Scale 1-3) Amiodarone HCl 200 mg 04/23/20 09:00 04/25/20 08:58 Amiodarone Hcl 200 Mg Tablet PO 200 mg DAILY KEAGAN Administration Apixaban 5 mg 04/23/20 09:00 04/25/20 08:58 Apixaban 5 Mg Tablet PO 5 mg BID KEAGAN Administration Digoxin 0.125 mg 04/23/20 09:00 04/25/20 09:01 Digoxin 0.125 Mg Tablet PO 0.125 mg DAILY KEAGAN Administration Docusate Sodium 100 mg 04/22/20 23:51 Docusate Sodium 100 Mg Capsule PO DAILY PRN Constipation Furosemide 40 mg 04/25/20 09:00 04/25/20 09:01 Furosemide 40 Mg Tablet PO 40 mg DAILY KEAGAN Administration Protocol Ceftriaxone Sodium 1 gm/ 50 mls @ 100 mls/hr 04/23/20 04:00 04/25/20 04:36 Sodium Chloride IV Infused Q24H KEAGAN Infusion Azithromycin 500 mg/ Sodium 250 mls @ 125 mls/hr 04/23/20 07:00 04/25/20 08:53 Chloride IV Infused Q24H KEAGAN Infusion Metoprolol Succinate 50 mg 04/23/20 21:00 04/25/20 09:01 Metoprolol Succinate Er 25 Mg Tab.Er.24h PO 50 mg BID KEAGAN Administration Protocol Ondansetron HCl 4 mg 04/22/20 23:51 01/20/21 05:09 Ondansetron Hcl 4 Mg/2 Ml Vial IVPUSH 4 mg Q8H PRN Administration Nausea and Vomiting Sodium Chloride 3 ml 04/23/20 00:00 04/25/20 07:33 0.9 % Sodium Chloride Flush 3 Ml Syringe IVFLUSH Not Given QSHIFT KEAGAN Labs CBC & Chem 7: 04/25/20 05:44 04/25/20 05:44 Microbiology Microbiology Results: Microbiology 04/22/20 21:19 Blood - Venous Blood Culture - Preliminary No growth after 48 hours. 04/22/20 21:10 Blood - Venous Blood Culture - Preliminary No growth after 48 hours. 04/23/20 03:04 Urine clean catch - Clean Catch Midstream Urine Culture - Final Assessment and Plan (1) Atrial fibrillation with RVR: Status: Acute (2) Essential hypertension: Status: Acute (3) Pneumonia: Status: Acute (4) Acute kidney injury superimposed on CKD: Status: Acute (5) CHF exacerbation: Status: Acute (6) Chest pain: Status: Acute (7) Sepsis: Status: Acute (8) UTI (urinary tract infection): Status: Acute Assessment and Plan: 85-year-old male past medical history of CHF, AFib, who presented to the hospital with complaint of shortness of breath as well as chest pain. sepsis poa and acute hypoxic respiratory failure due to pneumonia/uti and acute on chronic systolic chf changed to po lasix - monitor bmp rocephin, azithro cultures negative so far chest pain resolved troponins negative afib with rvr continue eliquis, amio, dig, metoporolol, rate better controlled LAUREN on CKD III improved
--- NOTE | 2020-04-25 12:44 | MHC.CM.PN ---
The goal for dc is for Patient to return home with [facility]. Patient is still on 2 IVABT r/t PNA and not yet medically cleared for dc. CM will follow for dc planning and for possible need to adjust the dc plan.
--- NOTE | 2020-04-25 13:21 | PM.PNCARD ---
Subjective Subjective Date of Service: 04/25/20 Review of Systems Review of Systems Yes all other systems are reviewed and are negative Physical Exam Vital Signs: Last Vital Signs Temp 97.9 F 04/25/20 08:58 Pulse 81 04/25/20 09:01 Resp 20 04/25/20 08:58 BP 119/74 04/25/20 09:01 Pulse Ox 97 04/25/20 08:58 Body Mass Index 19.6 Results Labs and Meds Result diagrams: 04/25/20 05:44 04/25/20 05:44 Lab results: Laboratory Results - last 24 hr 04/25/20 04/25/20 05:44 05:44 WBC 12.3 H RBC 5.31 Hgb 16.5 Hct 50.5 MCV 95.1 MCH 31.1 MCHC 32.7 RDW 13.4 Plt Count 160 MPV 11.9 Immature Gran % (Auto) 0.4 Neut % (Auto) 85.0 H Lymph % (Auto) 6.2 L [place] % (Auto) 8.2 Eos % (Auto) 0.1 Baso % (Auto) 0.1 Lymph # (Auto) 0.8 L [place] # (Auto) 1.0 Eos # (Auto) 0.0 Baso # (Auto) 0.0 Abs Immat Gran (auto) 0.05 H Absolute Neuts (auto) 10.4 H Absolute Nucleated RBC 0.000 Nucleated RBC % (auto) 0.0 Sodium 142 Potassium 3.6 D Chloride 99 Carbon Dioxide 32 H Anion Gap 15 BUN 36 H Creatinine 1.37 Estim Creat Clear Calc 36.6 Estimated GFR 49 Fasting Glucose 104 H Calcium 8.1 L Magnesium 1.8 Progress Note: A&P Fall Risk Details Current Medications: Current Medications Generic Name Dose Route Start Last Admin Trade Name Freq PRN Reason Stop Dose Admin Acetaminophen 650 mg 04/22/20 23:51 Acetaminophen 325 Mg Tablet PO Q6H PRN Pain, Mild (Pain Scale 1-3) Amiodarone HCl 200 mg 04/23/20 09:00 04/25/20 08:58 Amiodarone Hcl 200 Mg Tablet PO 200 mg DAILY KEAGAN Administration Apixaban 5 mg 04/23/20 09:00 04/25/20 08:58 Apixaban 5 Mg Tablet PO 5 mg BID KEAGAN Administration Digoxin 0.125 mg 04/23/20 09:00 04/25/20 09:01 Digoxin 0.125 Mg Tablet PO 0.125 mg DAILY KEAGAN Administration Docusate Sodium 100 mg 04/22/20 23:51 Docusate Sodium 100 Mg Capsule PO DAILY PRN Constipation Furosemide 40 mg 04/25/20 09:00 04/25/20 09:01 Furosemide 40 Mg Tablet PO 40 mg DAILY KEAGAN Administration Protocol Ceftriaxone Sodium 1 gm/ 50 mls @ 100 mls/hr 04/23/20 04:00 04/25/20 04:36 Sodium Chloride IV Infused Q24H KEAGAN Infusion Azithromycin 500 mg/ Sodium 250 mls @ 125 mls/hr 04/23/20 07:00 04/25/20 08:53 Chloride IV Infused Q24H KEAGAN Infusion Metoprolol Succinate 50 mg 04/23/20 21:00 04/25/20 09:01 Metoprolol Succinate Er 25 Mg Tab.Er.24h PO 50 mg BID KEAGAN Administration Protocol Ondansetron HCl 4 mg 04/22/20 23:51 04/23/20 05:09 Ondansetron Hcl 4 Mg/2 Ml Vial IVPUSH 4 mg Q8H PRN Administration Nausea and Vomiting Sodium Chloride 3 ml 04/23/20 00:00 04/25/20 07:33 0.9 % Sodium Chloride Flush 3 Ml Syringe IVFLUSH Not Given QSHIFT KEAGAN Time Spent With Patient Time: Total time spent is greater than 50% in coordination of care (as documented) at patient's floor/unit and/or counseling patient:
[2020-04-25] MEDS: 0.9 % Sodium Chloride Flush 3 ML SYRINGE IVFLUSH ×2 (15:32→20:14)
[2020-04-26] VITALS (9 sets, daily range): BP systolic 112–147; BP diastolic 70–89; PULSE 59–78; RESP 16–18; TEMP 36.1–36.7; O2SAT 94–98; BMI 19.5
[2020-04-26] MEDS: cefTRIAXone sodium 1 GM in 0.9 % Sodium Chloride 50 ML IV (04:20)
[2020-04-26 06:19] LABS: MANUAL DIFF FLAG NO
[2020-04-26 06:30] LABS: Basophils Percent Auto 0.1 % (0-2); Eosinophils Percent Auto 0.3 % (0-4); Hematocrit 49.9 % (42-52); Hemoglobin 16.3 g/dl (14.0-18.0); Imm Gran Abs Auto 0.07 X10*3/uL (0.00-0.03); Imm Gran Pct Auto 0.6 % (0.0-0.4); Lymphocytes Absolute Auto 0.8 X10*3/uL (1.2-4.9); Lymphocytes Percent Auto 6.7 % (20-40); Mean Corpuscular HGB Conc 32.7 g/dl (31.0-36.0); Mean Corpuscular Hemoglobin 30.7 pg (27.0-33.0); Mean Platelet Volume 11.7 fL (9.4-12.4); Monocytes Absolute Auto 0.9 X10*3/uL (0.1-1.2); Monocytes Percent Auto 7.3 % (2-11); Neutrophils Absolute Auto 9.8 X10*3/uL (2.0-8.3); Platelet Count 153 X10*3/uL (160-400); Red Blood Count 5.31 X10*6/uL (4.60-5.80); Red Cell Distribution Width 13.2 % (11.0-16.0); White Blood Count 11.6 X10*3/uL (4.8-10.8)
[2020-04-26] MEDS: Azithromycin 500 MG in 0.9 % Sodium Chloride 250 ML 125 MG IV (06:41)
[2020-04-26 07:04] LABS: Anion Gap 17 (12-20); Blood Urea Nitrogen 24 mg/dL (9-16); Calcium 7.7 mg/dL (8.4-10.2); Carbon Dioxide 27 mmol/L (22-29); Chloride 99 mmol/L (96-108); Creatinine Clr Calc Pharmacy 59.5; Estimated Glomerular Filt Rate > 60; Glucose Fasting 107 mg/dL (60-99); Magnesium 1.6 mg/dL (1.6-2.6); Potassium 3.2 mmol/l (3.3-5.1); Sodium 140 mmol/L (135-145)
[2020-04-26] MEDS: Metoprolol Succinate ER 25 MG TAB.ER.24H 50 MG PO ×2 (09:15→21:03)
[2020-04-26] MEDS: 0.9 % Sodium Chloride Flush 3 ML SYRINGE IVFLUSH ×3 (09:15→21:03)
[2020-04-26] MEDS: Furosemide 40 MG TABLET PO (09:16)
[2020-04-26] MEDS: Apixaban 5 MG TABLET PO ×2 (09:16→21:03)
[2020-04-26] MEDS: Amiodarone HCL 200 MG TABLET PO (09:17)
[2020-04-26] MEDS: Digoxin 0.125 MG TABLET PO (09:17)
--- NOTE | 2020-04-26 10:20 | HO.PM.IMPN ---
Subjective Subjective Date of Service: 04/26/20 Interval History: weak, unchanged Cardiovascular Cardiovascular: Reports no additional cardiovascular complaints Gastrointestinal Gastrointestinal: Reports no additional gastrointestinal complaints Physical Exam Vital Signs: Vital Signs: Last Vital Signs Temp 96.9 F 04/26/20 08:00 Pulse 77 04/26/20 09:17 Resp 18 04/26/20 08:00 BP 112/80 04/26/20 09:17 Pulse Ox 96 04/26/20 08:00 Body Mass Index 19.5 General: AO X 3, no acute distress Resp: diminished CVS: S1,S2,RRR GI: soft, non tender, non distended Neuro: motor grossly intact Psych: appropriate affect Objective Data Current Medications Generic Name Dose Route Start Last Admin Trade Name Freq PRN Reason Stop Dose Admin Acetaminophen 650 mg 04/22/20 23:51 Acetaminophen 325 Mg Tablet PO Q6H PRN Pain, Mild (Pain Scale 1-3) Amiodarone HCl 200 mg 04/23/20 09:00 04/26/20 09:17 Amiodarone Hcl 200 Mg Tablet PO 200 mg DAILY KEAGAN Administration Apixaban 5 mg 04/23/20 09:00 04/26/20 09:16 Apixaban 5 Mg Tablet PO 5 mg BID KEAGAN Administration Digoxin 0.125 mg 04/23/20 09:00 04/26/20 09:17 Digoxin 0.125 Mg Tablet PO 0.125 mg DAILY KEAGAN Administration Docusate Sodium 100 mg 04/22/20 23:51 Docusate Sodium 100 Mg Capsule PO DAILY PRN Constipation Furosemide 40 mg 04/25/20 09:00 04/26/20 09:16 Furosemide 40 Mg Tablet PO 40 mg DAILY KEAGAN Administration Protocol Ceftriaxone Sodium 1 gm/ 50 mls @ 100 mls/hr 04/23/20 04:00 04/26/20 04:55 Sodium Chloride IV Infused Q24H KEAGAN Infusion Azithromycin 500 mg/ Sodium 250 mls @ 125 mls/hr 04/23/20 07:00 04/26/20 09:33 Chloride IV Infused Q24H KEAGAN Infusion Metoprolol Succinate 50 mg 04/23/20 21:00 04/26/20 09:15 Metoprolol Succinate Er 25 Mg Tab.Er.24h PO 50 mg BID KEAGAN Administration Protocol Ondansetron HCl 4 mg 04/22/20 23:51 04/23/20 05:09 Ondansetron Hcl 4 Mg/2 Ml Vial IVPUSH 4 mg Q8H PRN Administration Nausea and Vomiting Sodium Chloride 3 ml 04/23/20 00:00 04/26/20 09:15 0.9 % Sodium Chloride Flush 3 Ml Syringe IVFLUSH 3 ml QSHIFT KEAGAN Administration Labs CBC & Chem 7: 04/26/20 05:36 04/26/20 05:36 Microbiology Microbiology Results: Microbiology 04/22/20 21:19 Blood - Venous Blood Culture - Preliminary No growth after 48 hours. 04/22/20 21:10 Blood - Venous Blood Culture - Preliminary No growth after 48 hours. 04/23/20 03:04 Urine clean catch - Clean Catch Midstream Urine Culture - Final Assessment and Plan (1) Atrial fibrillation with RVR: Status: Acute (2) Essential hypertension: Status: Acute (3) Pneumonia: Status: Acute (4) Acute kidney injury superimposed on CKD: Status: Acute (5) CHF exacerbation: Status: Acute (6) Chest pain: Status: Acute (7) Sepsis: Status: Acute (8) UTI (urinary tract infection): Status: Acute Assessment and Plan: 85-year-old male past medical history of CHF, AFib, who presented to the hospital with complaint of shortness of breath as well as chest pain. sepsis poa and acute hypoxic respiratory failure due to pneumonia/uti and acute on chronic systolic chf changed to po lasix - continue rocephin, azithro cultures negative so far wean o2 as tolerated chest pain resolved troponins negative afib with rvr continue eliquis, amio, dig, metoporolol, rate better controlled LAUREN on CKD III improved
--- NOTE | 2020-04-26 11:50 | PM.PNCARD ---
Subjective Subjective Date of Service: 04/26/20 Interval history: Patient states that he feels okay. No specific cardiac complaints at this time. He just feels weak and tired. Review of Systems Cardiovascular: Reports as per HPI, Reports no additional cardiovascular complaints, Denies acrocyanosis, Denies cool extremities, Denies painful fingertips, Denies chest pain, Denies chest pain at rest, Denies diaphoresis, Denies syncope, Denies irregular heart rhythm, Denies claudication, Denies leg edema, Denies lightheadedness, Denies Loss of Consciousness, Denies palpitations, Denies dyspnea and Denies dyspnea on exertion Respiratory: Reports cough, Denies dyspnea and Denies dyspnea on exertion Reports Abnormal speech present and Denies syncope Endocrine: Denies palpitations Physical Exam Vital Signs: Last Vital Signs Temp 96.9 F 04/26/20 08:00 Pulse 77 04/26/20 09:17 Resp 18 04/26/20 08:00 BP 112/80 04/26/20 09:17 Pulse Ox 96 04/26/20 08:00 Body Mass Index 19.5 Const General: cooperative, comfortable and no acute distress Orientation/consciousness: patient oriented x3 Neck Neck: Yes normal visual inspection Chest Chest palpation & inspection: normal inspection of the chest Resp Auscultation: clear to auscultation bilaterally, no crackles and no wheezes Cardio Jugular venous distension: no JVD Palpation: normal PMI Heart sounds: S1 normal heart sound present, S2 normal heart sound present, no gallops, no murmurs and no rubs GI Palpation (GI): Soft to palpation Skin General skin exam: no rashes or lesions noted Neuro General: patient oriented x3 Speech: Abnormal speech present Extrem General: Yes no clubbing, cyanosis or edema and Yes pedal edema (1+) Psych Mental Status: mental status grossly normal Results Labs and Meds Result diagrams: 04/26/20 05:36 04/26/20 05:36 Lab results: Laboratory Results - last 24 hr 04/26/20 04/26/20 05:36 05:36 WBC 11.6 H RBC 5.31 Hgb 16.3 Hct 49.9 MCV 94.0 MCH 30.7 MCHC 32.7 RDW 13.2 Plt Count 153 L MPV 11.7 Immature Gran % (Auto) 0.6 H Neut % (Auto) 85.0 H Lymph % (Auto) 6.7 L [place] % (Auto) 7.3 Eos % (Auto) 0.3 Baso % (Auto) 0.1 Lymph # (Auto) 0.8 L [place] # (Auto) 0.9 Eos # (Auto) 0.0 Baso # (Auto) 0.0 Abs Immat Gran (auto) 0.07 H Absolute Neuts (auto) 9.8 H Absolute Nucleated RBC 0.000 Nucleated RBC % (auto) 0.0 Sodium 140 Potassium 3.2 L Chloride 99 Carbon Dioxide 27 Anion Gap 17 BUN 24 H Creatinine 0.84 Estim Creat Clear Calc 59.5 Estimated GFR > 60 Fasting Glucose 107 H Calcium 7.7 L Magnesium 1.6 Progress Note: A&P Assessment and plan (1) Acute on chronic systolic (congestive) heart failure: Status: Acute (2) Pneumonia: Status: Acute (3) Cardiomyopathy, unspecified: Status: Acute (4) Persistent atrial fibrillation: Status: Acute Assessment and Plan: Symptoms possibly from some combination of heart failure and infection. Clinically, he appears euvolemic. Continue home dose of diuretics. Continue home dose of amiodarone, beta-blockers as well as digoxin. Continue with anticoagulation. Atrial fibrillation itself appears well controlled on telemetry. Fall Risk Details Current Medications: Current Medications Generic Name Dose Route Start Last Admin Trade Name Freq PRN Reason Stop Dose Admin Acetaminophen 650 mg 04/22/20 23:51 Acetaminophen 325 Mg Tablet PO Q6H PRN Pain, Mild (Pain Scale 1-3) Amiodarone HCl 200 mg 04/23/20 09:00 04/26/20 09:17 Amiodarone Hcl 200 Mg Tablet PO 200 mg DAILY KEAGAN Administration Apixaban 5 mg 04/23/20 09:00 04/26/20 09:16 Apixaban 5 Mg Tablet PO 5 mg BID KEAGAN Administration Digoxin 0.125 mg 04/23/20 09:00 04/26/20 09:17 Digoxin 0.125 Mg Tablet PO 0.125 mg DAILY KEAGAN Administration Docusate Sodium 100 mg 04/22/20 23:51 Docusate Sodium 100 Mg Capsule PO DAILY PRN Constipation Furosemide 40 mg 04/25/20 09:00 04/26/20 09:16 Furosemide 40 Mg Tablet PO 40 mg DAILY KEAGAN Administration Protocol Ceftriaxone Sodium 1 gm/ 50 mls @ 100 mls/hr 04/23/20 04:00 04/26/20 04:55 Sodium Chloride IV Infused Q24H KEAGAN Infusion Azithromycin 500 mg/ Sodium 250 mls @ 125 mls/hr 04/23/20 07:00 04/26/20 09:33 Chloride IV Infused Q24H KEAGAN Infusion Metoprolol Succinate 50 mg 04/23/20 21:00 04/26/20 09:15 Metoprolol Succinate Er 25 Mg Tab.Er.24h PO 50 mg BID KEAGAN Administration Protocol Ondansetron HCl 4 mg 04/22/20 23:51 04/23/20 05:09 Ondansetron Hcl 4 Mg/2 Ml Vial IVPUSH 4 mg Q8H PRN Administration Nausea and Vomiting Sodium Chloride 3 ml 04/23/20 00:00 04/26/20 09:15 0.9 % Sodium Chloride Flush 3 Ml Syringe IVFLUSH 3 ml QSHIFT KEAGAN Administration Time Spent With Patient Time: Total time spent is greater than 50% in coordination of care (as documented) at patient's floor/unit and/or counseling patient: Time with patient: less than 15 minutes
[2020-04-27] VITALS (10 sets, daily range): BP systolic 126–149; BP diastolic 66–89; PULSE 70–85; RESP 18–19; TEMP 36–37.3; O2SAT 93–98; BMI 19.5
[2020-04-27] MEDS: cefTRIAXone sodium 1 GM in 0.9 % Sodium Chloride 50 ML IV (03:53)
[2020-04-27] MEDS: Azithromycin 500 MG in 0.9 % Sodium Chloride 250 ML 125 MG IV (06:11)
[2020-04-27 06:50] LABS: MANUAL DIFF FLAG NO
[2020-04-27 07:19] LABS: Basophils Percent Auto 0.2 % (0-2); Eosinophils Percent Auto 0.3 % (0-4); Hematocrit 52.6 % (42-52); Hemoglobin 17.4 g/dl (14.0-18.0); Imm Gran Abs Auto 0.04 X10*3/uL (0.00-0.03); Imm Gran Pct Auto 0.3 % (0.0-0.4); Lymphocytes Absolute Auto 0.7 X10*3/uL (1.2-4.9); Lymphocytes Percent Auto 6.3 % (20-40); Mean Corpuscular HGB Conc 33.1 g/dl (31.0-36.0); Mean Corpuscular Hemoglobin 31.1 pg (27.0-33.0); Mean Corpuscular Volume 94.1 fL (80-98); Mean Platelet Volume 11.7 fL (9.4-12.4); Monocytes Absolute Auto 1.1 X10*3/uL (0.1-1.2); Monocytes Percent Auto 9.3 % (2-11); Neutrophils Absolute Auto 9.6 X10*3/uL (2.0-8.3); Neutrophils Percent Auto 83.6 % (45-73); Platelet Count 166 X10*3/uL (160-400); Red Blood Count 5.59 X10*6/uL (4.60-5.80); Red Cell Distribution Width 13.1 % (11.0-16.0); White Blood Count 11.5 X10*3/uL (4.8-10.8)
[2020-04-27 07:27] LABS: Anion Gap 13 (12-20); Blood Urea Nitrogen 21 mg/dL (9-16); Calcium 7.7 mg/dL (8.4-10.2); Carbon Dioxide 32 mmol/L (22-29); Chloride 98 mmol/L (96-108); Creatinine Clr Calc Pharmacy 61.4; Estimated Glomerular Filt Rate > 60; Glucose Fasting 101 mg/dL (60-99); Potassium 3.2 mmol/l (3.3-5.1); Sodium 140 mmol/L (135-145)
[2020-04-27] MEDS: 0.9 % Sodium Chloride Flush 3 ML SYRINGE IVFLUSH ×3 (08:25→22:45)
[2020-04-27] MEDS: Furosemide 40 MG TABLET PO (08:25)
[2020-04-27] MEDS: Metoprolol Succinate ER 25 MG TAB.ER.24H 50 MG PO ×2 (08:26→22:44)
[2020-04-27] MEDS: Apixaban 5 MG TABLET PO ×2 (08:26→22:44)
[2020-04-27] MEDS: Digoxin 0.125 MG TABLET PO (08:26)
[2020-04-27] MEDS: Amiodarone HCL 200 MG TABLET PO (08:26)
--- NOTE | 2020-04-27 10:52 | HO.PM.IMPN ---
Subjective Subjective Date of Service: 04/27/20 Interval History: weak Cardiovascular Cardiovascular: Reports no additional cardiovascular complaints Respiratory Respiratory: Reports no additional respiratory complaints Physical Exam Vital Signs: Vital Signs: Last Vital Signs Temp 98.5 F 04/27/20 07:32 Pulse 70 04/27/20 08:26 Resp 18 04/27/20 07:32 BP 149/89 H 04/27/20 08:26 Pulse Ox 95 04/27/20 07:32 Body Mass Index 19.5 General: AO X 3, no acute distress Resp: CTA bilateral CVS: S1,S2,RRR GI: soft, non tender, non distended Neuro: motor grossly intact Psych: appropriate affect Objective Data Current Medications Generic Name Dose Route Start Last Admin Trade Name Freq PRN Reason Stop Dose Admin Acetaminophen 650 mg 04/22/20 23:51 Acetaminophen 325 Mg Tablet PO Q6H PRN Pain, Mild (Pain Scale 1-3) Amiodarone HCl 200 mg 04/23/20 09:00 04/27/20 08:26 Amiodarone Hcl 200 Mg Tablet PO 200 mg DAILY KEAGAN Administration Apixaban 5 mg 04/23/20 09:00 04/27/20 08:26 Apixaban 5 Mg Tablet PO 5 mg BID KEAGAN Administration Digoxin 0.125 mg 04/23/20 09:00 04/27/20 08:26 Digoxin 0.125 Mg Tablet PO 0.125 mg DAILY KEAGAN Administration Docusate Sodium 100 mg 04/22/20 23:51 Docusate Sodium 100 Mg Capsule PO DAILY PRN Constipation Furosemide 40 mg 04/25/20 09:00 04/27/20 08:25 Furosemide 40 Mg Tablet PO 40 mg DAILY KEAGAN Administration Protocol Ceftriaxone Sodium 1 gm/ 50 mls @ 100 mls/hr 04/23/20 04:00 04/27/20 05:09 Sodium Chloride IV Infused Q24H KEAGAN Infusion Azithromycin 500 mg/ Sodium 250 mls @ 125 mls/hr 04/23/20 07:00 04/27/20 08:36 Chloride IV Infused Q24H KEAGAN Infusion Metoprolol Succinate 50 mg 04/23/20 21:00 04/27/20 08:26 Metoprolol Succinate Er 25 Mg Tab.Er.24h PO 50 mg BID KEAGAN Administration Protocol Ondansetron HCl 4 mg 04/22/20 23:51 04/23/20 05:09 Ondansetron Hcl 4 Mg/2 Ml Vial IVPUSH 4 mg Q8H PRN Administration Nausea and Vomiting Potassium Chloride 40 meq 04/27/20 10:51 Potassium Chloride Er 20 Meq Tab.Er.Prt PO 04/27/20 10:52 ONCE ONE Sodium Chloride 3 ml 04/23/20 00:00 04/27/20 08:25 0.9 % Sodium Chloride Flush 3 Ml Syringe IVFLUSH 3 ml QSHIFT KEAGAN Administration Labs CBC & Chem 7: 04/27/20 05:39 04/27/20 05:39 Microbiology Microbiology Results: Microbiology 04/22/20 21:19 Blood - Venous Blood Culture - Preliminary No growth after 48 hours. 04/22/20 21:10 Blood - Venous Blood Culture - Preliminary No growth after 48 hours. 04/23/20 03:04 Urine clean catch - Clean Catch Midstream Urine Culture - Final Assessment and Plan (1) Atrial fibrillation with RVR: Status: Acute (2) Essential hypertension: Status: Acute (3) Pneumonia: Status: Acute (4) Acute kidney injury superimposed on CKD: Status: Acute (5) CHF exacerbation: Status: Acute (6) Chest pain: Status: Acute (7) Sepsis: Status: Acute (8) UTI (urinary tract infection): Status: Acute Assessment and Plan: 85-year-old male past medical history of CHF, AFib, who presented to the hospital with complaint of shortness of breath as well as chest pain. sepsis poa and acute hypoxic respiratory failure due to pneumonia/uti and acute on chronic systolic chf changed to po lasix - continue rocephin, azithro cultures negative so far wean o2 as tolerated plan for dc in 24 hours if stable chest pain resolved troponins negative afib with rvr continue eliquis, amio, dig, metoporolol, rate better controlled LAUREN on CKD III improved
[2020-04-27] MEDS: Potassium Chloride ER 20 MEQ TAB.ER.PRT 40 MEQ PO (11:03)
--- NOTE | 2020-04-27 11:09 | PM.PNCARD ---
Subjective Subjective Date of Service: 04/27/20 Interval history: States that he feels weak. No complaints like angina or shortness of breath or palpitations or other cardiac symptoms. Review of Systems Constitutional: Reports fatigue and Reports weakness Cardiovascular: Reports as per HPI, Reports no additional cardiovascular complaints, Denies acrocyanosis, Denies cool extremities, Denies painful fingertips, Denies chest pain, Denies chest pain at rest, Denies diaphoresis, Denies syncope, Denies irregular heart rhythm, Denies claudication, Denies leg edema, Denies lightheadedness, Denies Loss of Consciousness, Denies palpitations, Denies dyspnea and Denies dyspnea on exertion Respiratory: Reports cough, Denies dyspnea and Denies dyspnea on exertion Reports Abnormal speech present, Denies syncope and Reports weakness Endocrine: Reports fatigue and Denies palpitations Physical Exam Vital Signs: Last Vital Signs Temp 98.5 F 04/27/20 07:32 Pulse 70 04/27/20 08:26 Resp 18 04/27/20 07:32 BP 149/89 H 04/27/20 08:26 Pulse Ox 95 04/27/20 07:32 Body Mass Index 19.5 Const General: cooperative, comfortable and no acute distress Orientation/consciousness: patient oriented x3 Neck Neck: Yes normal visual inspection Chest Chest palpation & inspection: normal inspection of the chest Resp Auscultation: clear to auscultation bilaterally, no crackles and no wheezes Cardio Jugular venous distension: no JVD Palpation: normal PMI Heart sounds: S1 normal heart sound present, S2 normal heart sound present, no gallops, no murmurs and no rubs GI Palpation (GI): Soft to palpation Skin General skin exam: no rashes or lesions noted Neuro General: patient oriented x3 Speech: Abnormal speech present Extrem General: Yes no clubbing, cyanosis or edema Psych Mental Status: mental status grossly normal Results Labs and Meds Result diagrams: 04/27/20 05:39 04/27/20 05:39 Lab results: Laboratory Results - last 24 hr 04/27/20 04/27/20 05:39 05:39 WBC 11.5 H RBC 5.59 Hgb 17.4 Hct 52.6 H MCV 94.1 MCH 31.1 MCHC 33.1 RDW 13.1 Plt Count 166 MPV 11.7 Immature Gran % (Auto) 0.3 Neut % (Auto) 83.6 H Lymph % (Auto) 6.3 L [place] % (Auto) 9.3 Eos % (Auto) 0.3 Baso % (Auto) 0.2 Lymph # (Auto) 0.7 L [place] # (Auto) 1.1 Eos # (Auto) 0.0 Baso # (Auto) 0.0 Abs Immat Gran (auto) 0.04 H Absolute Neuts (auto) 9.6 H Absolute Nucleated RBC 0.000 Nucleated RBC % (auto) 0.0 Sodium 140 Potassium 3.2 L Chloride 98 Carbon Dioxide 32 H Anion Gap 13 BUN 21 H Creatinine 0.81 Estim Creat Clear Calc 61.4 Estimated GFR > 60 Fasting Glucose 101 H Calcium 7.7 L Progress Note: A&P Assessment and plan (1) Acute on chronic systolic (congestive) heart failure: Status: Acute (2) Pneumonia: Status: Acute (3) Cardiomyopathy, unspecified: Status: Acute (4) Persistent atrial fibrillation: Status: Acute Assessment and Plan: Symptoms possibly from some combination of heart failure and infection. Clinically, he appears euvolemic. No significant edema. Continue home dose of diuretics. Continue home dose of amiodarone, beta-blockers as well as digoxin. Continue with anticoagulation. Atrial fibrillation itself appears well controlled on telemetry. Upon discharge, will arrange FU in office. Fall Risk Details Current Medications: Current Medications Generic Name Dose Route Start Last Admin Trade Name Freq PRN Reason Stop Dose Admin Acetaminophen 650 mg 04/22/20 23:51 Acetaminophen 325 Mg Tablet PO Q6H PRN Pain, Mild (Pain Scale 1-3) Amiodarone HCl 200 mg 04/23/20 09:00 04/27/20 08:26 Amiodarone Hcl 200 Mg Tablet PO 200 mg DAILY KEAGAN Administration Apixaban 5 mg 04/23/20 09:00 04/27/20 08:26 Apixaban 5 Mg Tablet PO 5 mg BID KEAGAN Administration Digoxin 0.125 mg 04/23/20 09:00 04/27/20 08:26 Digoxin 0.125 Mg Tablet PO 0.125 mg DAILY KEAGAN Administration Docusate Sodium 100 mg 04/22/20 23:51 Docusate Sodium 100 Mg Capsule PO DAILY PRN Constipation Furosemide 40 mg 04/25/20 09:00 04/27/20 08:25 Furosemide 40 Mg Tablet PO 40 mg DAILY EKAGAN Administration Protocol Ceftriaxone Sodium 1 gm/ 50 mls @ 100 mls/hr 04/23/20 04:00 04/27/20 05:09 Sodium Chloride IV Infused Q24H KEAGAN Infusion Azithromycin 500 mg/ Sodium 250 mls @ 125 mls/hr 04/23/20 07:00 04/27/20 08:36 Chloride IV Infused Q24H KEAGAN Infusion Metoprolol Succinate 50 mg 04/23/20 21:00 04/27/20 08:26 Metoprolol Succinate Er 25 Mg Tab.Er.24h PO 50 mg BID KEAGAN Administration Protocol Ondansetron HCl 4 mg 04/22/20 23:51 04/23/20 05:09 Ondansetron Hcl 4 Mg/2 Ml Vial IVPUSH 4 mg Q8H PRN Administration Nausea and Vomiting Sodium Chloride 3 ml 04/23/20 00:00 04/27/20 08:25 0.9 % Sodium Chloride Flush 3 Ml Syringe IVFLUSH 3 ml QSHIFT KEAGAN Administration Time Spent With Patient Time: Total time spent is greater than 50% in coordination of care (as documented) at patient's floor/unit and/or counseling patient: Time with patient: less than 15 minutes
[2020-04-28] VITALS: BP 135/60; PULSE 48; RESP 18; TEMP 36.1; O2SAT 97
[2020-04-28] MEDS: cefTRIAXone sodium 1 GM in 0.9 % Sodium Chloride 50 ML IV (03:47)
[2020-04-28 04:00] VITALS: BP 154/80; PULSE 80; RESP 18; TEMP 36.5; O2SAT 92
[2020-04-28 06:00] VITALS: BMI 19.8
[2020-04-28] MEDS: Azithromycin 500 MG in 0.9 % Sodium Chloride 250 ML 125 MG IV (06:27)
[2020-04-28 07:15] VITALS: BP 158/87; PULSE 88; RESP 18; TEMP 36.6; O2SAT 93
--- NOTE | 2020-04-28 09:19 | MHC.CM.PN ---
Per MD, Patient is accepting dc plan for SNF/STR. CM met with Patient who is agreeable to area SNF referrals being made. CM will follow for dc planning. PT eval is pending.
[2020-04-28] MEDS: Metoprolol Succinate ER 25 MG TAB.ER.24H 50 MG PO (09:42)
[2020-04-28] MEDS: Furosemide 40 MG TABLET PO (09:42)
[2020-04-28 09:43] VITALS: PULSE 86
[2020-04-28] MEDS: Digoxin 0.125 MG TABLET PO (09:43)
[2020-04-28] MEDS: 0.9 % Sodium Chloride Flush 3 ML SYRINGE IVFLUSH (09:43)
[2020-04-28] MEDS: Amiodarone HCL 200 MG TABLET PO (09:43)
[2020-04-28] MEDS: Apixaban 5 MG TABLET PO (09:43)
--- NOTE | 2020-04-28 10:13 | PM.DS ---
DS: Providers Provider Date of Service: 04/28/20 Date of admission: 04/22/20 23:51 Primary care physician: Unknown Physician Consults: 04/23/20 05:21 Consult to Cardiology Routine Consulting Provider: Murtaza Renee Reason for consultation: a fib w rvr/ chf Has provider been notified: No DS: Diagnosis Discharge Diagnosis (1) Acute on chronic systolic (congestive) heart failure: Status: Acute (2) Pneumonia: Status: Acute (3) Cardiomyopathy, unspecified: Status: Acute (4) Persistent atrial fibrillation: Status: Acute DS: Medications Discharge Medications Home Medications: Home Medications Medication Instructions Recorded Confirmed apixaban 5 mg tablet 5 mg PO BID 01/17/20 04/23/20 furosemide 40 mg tablet 40 mg PO DAILY 01/17/20 04/23/20 digoxin 125 mcg (0.125 mg) tablet 125 mcg PO DAILY 03/12/20 04/23/20 Previous Rx's Medication Instructions Recorded amiodarone 200 mg tablet 200 mg PO DAILY #90 tab 02/21/20 cefuroxime axetil 500 mg PO BID #10 tab 04/28/20 metoprolol succinate 50 mg PO BID #0 tab 04/28/20 DS: Summary Hospital Course Hospital Course: Patient was admitted for sepsis and acute hypoxic respiratory failure secondary to pneumonia and acute on chronic systolic CHF. He was initially diuresed with IV Lasix and then transitioned to oral Lasix. He was given ceftriaxone azithromycin. Sepsis resolved and hypoxia resolved. He will be continued on 5 more days of p.o. Ceftin on discharge. Patient was also noted to have chest pain, but had negative troponins and no further workup was pursued. His chest pain did resolve. Patient was also noted to have atrial fibrillation with rapid ventricular response. He was continued on his home Eliquis, amiodarone, digoxin. His Toprol was increased from 25 mg b.i.d. to 50 mg b.i.d.. His rate is now better controlled. Course was also complicated by acute on chronic kidney injury. This resolved with diuresis. Patient is debilitated from hospital stay and will be discharged to group home facility for short-term rehab. Time Spent with Patient Time attestation: Total time spent providing and/or coordinating discharge services: Discharge coordination time: Greater than 30 minutes Physical Exam Vital Signs: Vital Signs: Last Vital Signs Temp 97.9 F 04/28/20 07:15 Pulse 86 04/28/20 09:43 Resp 18 04/28/20 07:15 BP 158/87 H 04/28/20 07:15 Pulse Ox 93 04/28/20 07:15 Body Mass Index 19.8 General: AO X 3, no acute distress Resp: CTA bilateral CVS: S1,S2,irregular GI: soft, non tender, non distended Neuro: motor grossly intact Psych: appropriate affect DS: Data Data Completed and Pending Labs on day of discharge: Laboratory Tests 04/22/20 04/22/20 04/22/20 21:10 21:10 21:12 WBC RBC Hgb Hct MCV MCH MCHC RDW Plt Count MPV Immature Gran % (Auto) Neut % (Auto) Lymph % (Auto) [place] % (Auto) Eos % (Auto) Baso % (Auto) Lymph # (Auto) [place] # (Auto) Eos # (Auto) Baso # (Auto) Abs Immat Gran (auto) Absolute Neuts (auto) Absolute Nucleated RBC Nucleated RBC % (auto) PT INR APTT Sodium Potassium Chloride Carbon Dioxide Anion Gap BUN Creatinine Estim Creat Clear Calc Estimated GFR Random Glucose Fasting Glucose Lactic Acid 3.3 H* Lactic Acid Fup @ 2Hr Lactic Acid Fup @ 4Hr Calcium Magnesium Total Bilirubin AST ALT Alkaline Phosphatase Troponin I High Sens 26.0 B-Natriuretic Peptide 1087 H Total Protein Albumin Urine Color Urine Appearance Urine pH Ur Specific [place] Urine Protein Urine Glucose (UA) Urine Ketones Urine Blood Urine Nitrite Ur Leukocyte Esterase Urine RBC Urine WBC Ur Squamous Epith Cells Urine Bacteria Urine Mucus Urine Yeast Ur Oval Fat Bodies Digoxin Coronavirus (PCR) NEGATIVE Influenza Type A (PCR) NEGATIVE Influenza Type B (PCR) NEGATIVE RSV RNA Qual (PCR) NEGATIVE 04/22/20 04/22/20 04/22/20 21:13 21:13 21:13 WBC 8.5 RBC 5.60 D Hgb 17.2 D Hct 54.3 H D MCV 97.0 MCH 30.7 MCHC 31.7 RDW 13.7 Plt Count 186 MPV 11.8 Immature Gran % (Auto) 0.5 H Neut % (Auto) 73.8 H Lymph % (Auto) 16.1 L [place] % (Auto) 9.2 Eos % (Auto) 0.2 Baso % (Auto) 0.2 Lymph # (Auto) 1.4 [place] # (Auto) 0.8 Eos # (Auto) 0.0 Baso # (Auto) 0.0 Abs Immat Gran (auto) 0.04 H Absolute Neuts (auto) 6.3 Absolute Nucleated RBC 0.000 Nucleated RBC % (auto) 0.0 PT 22.6 H INR 1.9 H APTT 42.9 H Sodium 139 Potassium 5.1 Chloride 103 Carbon Dioxide 20 L Anion Gap 21 H BUN 41 H D Creatinine 1.81 H Estim Creat Clear Calc 30.8 Estimated GFR 36 Random Glucose 156 H Fasting Glucose Lactic Acid Lactic Acid Fup @ 2Hr Lactic Acid Fup @ 4Hr Calcium 9.8 D Magnesium Total Bilirubin 1.4 H AST 36 D ALT 49 H Alkaline Phosphatase 81 D Troponin I High Sens B-Natriuretic Peptide Total Protein 7.4 Albumin 4.5 Urine Color Urine Appearance Urine pH Ur Specific [place] Urine Protein Urine Glucose (UA) Urine Ketones Urine Blood Urine Nitrite Ur Leukocyte Esterase Urine RBC Urine WBC Ur Squamous Epith Cells Urine Bacteria Urine Mucus Urine Yeast Ur Oval Fat Bodies Digoxin Coronavirus (PCR) Influenza Type A (PCR) Influenza Type B (PCR) RSV RNA Qual (PCR) 04/22/20 04/23/20 04/23/20 22:21 00:12 00:12 WBC RBC Hgb Hct MCV MCH MCHC RDW Plt Count MPV Immature Gran % (Auto) Neut % (Auto) Lymph % (Auto) [place] % (Auto) Eos % (Auto) Baso % (Auto) Lymph # (Auto) [place] # (Auto) Eos # (Auto) Baso # (Auto) Abs Immat Gran (auto) Absolute Neuts (auto) Absolute Nucleated RBC Nucleated RBC % (auto) PT INR APTT Sodium Potassium Chloride Carbon Dioxide Anion Gap BUN Creatinine Estim Creat Clear Calc Estimated GFR Random Glucose Fasting Glucose Lactic Acid Lactic Acid Fup @ 2Hr 3.4 H* Lactic Acid Fup @ 4Hr Calcium Magnesium Total Bilirubin AST ALT Alkaline Phosphatase Troponin I High Sens 26.5 B-Natriuretic Peptide Total Protein Albumin Urine Color Urine Appearance Urine pH Ur Specific [place] Urine Protein Urine Glucose (UA) Urine Ketones Urine Blood Urine Nitrite Ur Leukocyte Esterase Urine RBC Urine WBC Ur Squamous Epith Cells Urine Bacteria Urine Mucus Urine Yeast Ur Oval Fat Bodies Digoxin < 0.3 L Coronavirus (PCR) Influenza Type A (PCR) Influenza Type B (PCR) RSV RNA Qual (PCR) 04/23/20 04/23/20 04/23/20 02:38 03:07 05:22 WBC 15.8 H RBC 5.72 Hgb 17.9 Hct 55.5 H MCV 97.0 MCH 31.3 MCHC 32.3 RDW 13.7 Plt Count 181 MPV 12.0 Immature Gran % (Auto) 0.4 Neut % (Auto) 88.5 H Lymph % (Auto) 5.3 L [place] % (Auto) 5.7 Eos % (Auto) 0.0 Baso % (Auto) 0.1 Lymph # (Auto) 0.8 L [place] # (Auto) 0.9 Eos # (Auto) 0.0 Baso # (Auto) 0.0 Abs Immat Gran (auto) 0.06 H Absolute Neuts (auto) 14.0 H Absolute Nucleated RBC 0.000 Nucleated RBC % (auto) 0.0 PT INR APTT Sodium Potassium Chloride Carbon Dioxide Anion Gap BUN Creatinine Estim Creat Clear Calc Estimated GFR Random Glucose Fasting Glucose Lactic Acid Lactic Acid Fup @ 2Hr Lactic Acid Fup @ 4Hr 2.7 H* Calcium Magnesium Total Bilirubin AST ALT Alkaline Phosphatase Troponin I High Sens B-Natriuretic Peptide Total Protein Albumin Urine Color YELLOW Urine Appearance TURBID Urine pH 6.5 Ur Specific [place] 1.020 Urine Protein TRACE Urine Glucose (UA) 100 H Urine Ketones NEG Urine Blood 3+ H Urine Nitrite POS H Ur Leukocyte Esterase 1+ H Urine RBC 0 Urine WBC 15-29 H Ur Squamous Epith Cells 2+ Urine Bacteria 4+ Urine Mucus 4+ Urine Yeast 2+ Ur Oval Fat Bodies NOTED Digoxin Coronavirus (PCR) Influenza Type A (PCR) Influenza Type B (PCR) RSV RNA Qual (PCR) 04/23/20 04/24/20 04/24/20 05:22 05:57 05:57 WBC 11.6 H RBC 5.45 Hgb 16.7 Hct 51.7 MCV 94.9 MCH 30.6 MCHC 32.3 RDW 13.6 Plt Count 146 L MPV 12.1 Immature Gran % (Auto) 0.3 Neut % (Auto) 82.2 H Lymph % (Auto) 7.8 L [place] % (Auto) 9.5 Eos % (Auto) 0.0 Baso % (Auto) 0.2 Lymph # (Auto) 0.9 L [place] # (Auto) 1.1 Eos # (Auto) 0.0 Baso # (Auto) 0.0 Abs Immat Gran (auto) 0.04 H Absolute Neuts (auto) 9.6 H Absolute Nucleated RBC 0.000 Nucleated RBC % (auto) 0.0 PT INR APTT Sodium 138 141 Potassium 5.3 H 5.0 Chloride 104 101 Carbon Dioxide 17 L 27 Anion Gap 22 H 18 BUN 42 H 44 H Creatinine 1.74 H 1.69 H Estim Creat Clear Calc 29.6 30.4 Estimated GFR 37 39 Random Glucose 141 H Fasting Glucose 98 D Lactic Acid Lactic Acid Fup @ 2Hr Lactic Acid Fup @ 4Hr Calcium 9.2 D 8.6 D Magnesium 1.9 Total Bilirubin AST ALT Alkaline Phosphatase Troponin I High Sens B-Natriuretic Peptide Total Protein Albumin Urine Color Urine Appearance Urine pH Ur Specific [place] Urine Protein Urine Glucose (UA) Urine Ketones Urine Blood Urine Nitrite Ur Leukocyte Esterase Urine RBC Urine WBC Ur Squamous Epith Cells Urine Bacteria Urine Mucus Urine Yeast Ur Oval Fat Bodies Digoxin Coronavirus (PCR) Influenza Type A (PCR) Influenza Type B (PCR) RSV RNA Qual (PCR) 04/25/20 04/25/20 04/26/20 05:44 05:44 05:36 WBC 12.3 H 11.6 H RBC 5.31 5.31 Hgb 16.5 16.3 Hct 50.5 49.9 MCV 95.1 94.0 MCH 31.1 30.7 MCHC 32.7 32.7 RDW 13.4 13.2 Plt Count 160 153 L MPV 11.9 11.7 Immature Gran % (Auto) 0.4 0.6 H Neut % (Auto) 85.0 H 85.0 H Lymph % (Auto) 6.2 L 6.7 L [place] % (Auto) 8.2 7.3 Eos % (Auto) 0.1 0.3 Baso % (Auto) 0.1 0.1 Lymph # (Auto) 0.8 L 0.8 L [place] # (Auto) 1.0 0.9 Eos # (Auto) 0.0 0.0 Baso # (Auto) 0.0 0.0 Abs Immat Gran (auto) 0.05 H 0.07 H Absolute Neuts (auto) 10.4 H 9.8 H Absolute Nucleated RBC 0.000 0.000 Nucleated RBC % (auto) 0.0 0.0 PT INR APTT Sodium 142 Potassium 3.6 D Chloride 99 Carbon Dioxide 32 H Anion Gap 15 BUN 36 H Creatinine 1.37 Estim Creat Clear Calc 36.6 Estimated GFR 49 Random Glucose Fasting Glucose 104 H Lactic Acid Lactic Acid Fup @ 2Hr Lactic Acid Fup @ 4Hr Calcium 8.1 L Magnesium 1.8 Total Bilirubin AST ALT Alkaline Phosphatase Troponin I High Sens B-Natriuretic Peptide Total Protein Albumin Urine Color Urine Appearance Urine pH Ur Specific [place] Urine Protein Urine Glucose (UA) Urine Ketones Urine Blood Urine Nitrite Ur Leukocyte Esterase Urine RBC Urine WBC Ur Squamous Epith Cells Urine Bacteria Urine Mucus Urine Yeast Ur Oval Fat Bodies Digoxin Coronavirus (PCR) Influenza Type A (PCR) Influenza Type B (PCR) RSV RNA Qual (PCR) 04/26/20 04/27/20 04/27/20 05:36 05:39 05:39 WBC 11.5 H RBC 5.59 Hgb 17.4 Hct 52.6 H MCV 94.1 MCH 31.1 MCHC 33.1 RDW 13.1 Plt Count 166 MPV 11.7 Immature Gran % (Auto) 0.3 Neut % (Auto) 83.6 H Lymph % (Auto) 6.3 L [place] % (Auto) 9.3 Eos % (Auto) 0.3 Baso % (Auto) 0.2 Lymph # (Auto) 0.7 L [place] # (Auto) 1.1 Eos # (Auto) 0.0 Baso # (Auto) 0.0 Abs Immat Gran (auto) 0.04 H Absolute Neuts (auto) 9.6 H Absolute Nucleated RBC 0.000 Nucleated RBC % (auto) 0.0 PT INR APTT Sodium 140 140 Potassium 3.2 L 3.2 L Chloride 99 98 Carbon Dioxide 27 32 H Anion Gap 17 13 BUN 24 H 21 H Creatinine 0.84 0.81 Estim Creat Clear Calc 59.5 61.4 Estimated GFR > 60 > 60 Random Glucose Fasting Glucose 107 H 101 H Lactic Acid Lactic Acid Fup @ 2Hr Lactic Acid Fup @ 4Hr Calcium 7.7 L 7.7 L Magnesium 1.6 Total Bilirubin AST ALT Alkaline Phosphatase Troponin I High Sens B-Natriuretic Peptide Total Protein Albumin Urine Color Urine Appearance Urine pH Ur Specific [place] Urine Protein Urine Glucose (UA) Urine Ketones Urine Blood Urine Nitrite Ur Leukocyte Esterase Urine RBC Urine WBC Ur Squamous Epith Cells Urine Bacteria Urine Mucus Urine Yeast Ur Oval Fat Bodies Digoxin Coronavirus (PCR) Influenza Type A (PCR) Influenza Type B (PCR) RSV RNA Qual (PCR) Discharge Plan Discharge Patient Disposition: Xfer SNF Referrals: Ken Aguirre [Outside] Physician,Unknown [Primary Care Provider] - Discharge Medications: New cefuroxime axetil 500 mg tablet 500 mg PO BID Qty: 10 RF: 0 Continued amiodarone 200 mg tablet 200 mg PO DAILY Qty: 90 RF: 1 furosemide 40 mg tablet 40 mg PO DAILY RF: 0 apixaban 5 mg tablet 5 mg PO BID RF: 0 digoxin 125 mcg (0.125 mg) tablet 125 mcg PO DAILY RF: 0 Changed metoprolol succinate 25 mg tablet extended release 24 hr 50 mg PO BID Qty: 0 RF: 0 Discharge Orders: Discharge Order (Routine); Ordered 04/28/20 Ordered By: Paulino Ferraro Activity on Discharge: As tolerated Stand Alone Forms: Patient Portal Discharge page Discharge Date/Time: 04/28/20 13:52 Care Plan Goals: recovery Health Concerns: afib, chf, pneumonia Plan of Treatment: increase toprol to 50mg bid, 5 days of ceftin
[2020-04-28 11:44] LABS: COVID-19 Test Negative (Negative)
[2020-04-28 12:28] VITALS: PULSE 86
--- NOTE | 2020-04-28 12:35 | MHC.CM.PN ---
Patient has been medically cleared for dc to SNF/STR today. Patient will dc to [facility] today at 1:30 PM, via [facility].Patient is aware of and in agreement with the dc plan. Second IMM addressed with Patient and the original has been given to him and a copy has been placed in the chart.
== END 2020-04-28 13:52 | disposition skilled nursing facility (03) | DRG 871 ==
LOC: HO.ED 23:48 → HO.EDOVER 04-23 00:10 → HO.ICU 04-23 03:52 → HO.IMC 04-23 13:30
PROVIDERS: Admitting Provider Internal Medicine; Emergency Provider Emergency Medicine Emergency Medical Services; Visit Provider Internal Medicine
DX: A41.9 Sepsis, unspecified organism (principal); J18.9 Pneumonia, unspecified organism; J96.01 Acute respiratory failure with hypoxia; I50.23 Acute on chronic systolic (congestive) heart failure; I13.0 Hypertensive heart and chronic kidney disease with heart failure and stage 1 through stage 4 chronic kidney disease, or unspecified chronic kidney disease; N39.0 Urinary tract infection, site not specified; I42.9 Cardiomyopathy, unspecified; E46 Unspecified protein-calorie malnutrition; Z68.1 Body mass index [BMI] 19.9 or less, adult; N17.9 Acute kidney failure, unspecified; I48.19 Other persistent atrial fibrillation; N18.30 Chronic kidney disease, stage 3 unspecified; Z20.822 Contact with and (suspected) exposure to COVID-19; Z91.14 Patient's other noncompliance with medication regimen; Z88.0 Allergy status to penicillin; Z88.2 Allergy status to sulfonamides; Z79.01 Long term (current) use of anticoagulants; Z79.899 Other long term (current) drug therapy
CPT/HCPCS: 0241U; 36415; 71045; 80048; 80053; 80162; 81001; 83605; 83735; 83880; 84484; 85025; 85610; 85730; 87040; 87086; 87635; 93005; 96365; 96366; 96375; 97161; 99285; J0456; J0696; J1160; J1940; J1956; J2405

== ENCOUNTER → 2020-08-26 13:06 | Outpatient (REF) | payer BC, SELFPAY ==
--- NOTE | 2020-08-26 13:21 | ECG_ITS ---
Hook-up date: 2020-08-26 13:53:00 Duration: 45:27:00 Test Indications: PERSISTANT AFIB Medications: 86829 QRS complexes 12 Ventricular ectopics which represent <1 % of total QRS comp. * Supraventricular ectopics which represent % of total QRS comp. * Paced QRS complexs which represent % of total QRS comp. VENTRICULAR ECTOPY 12 Isolated 0 Bigeminal Cycles 0 Couplets 0 Runs 0 Beats in Runs * Beats LONGEST at * BPM at :: -- * Beats FASTEST at * BPM at :: -- SUPRAVENTRICULAR ECTOPY * Isolated * Couplets * Runs * Beats in Runs * Beats LONGEST at * BPM at :: -- * Beats FASTEST at * BPM at :: -- HEART RATES 33 MIN at 01:47:47 2020-08-27 60 AVG 134 MAX at 19:25:06 2020-08-26 LONGEST RR 3.2880 secs at 06:18:24 2020-08-27 S-T LEVELS Channel 1 - 128 mm at 13:53:00 2020-08-26 - 128 mm at 13:53:00 2020-08-26 Channel 2 - 128 mm at 13:53:00 2020-08-26 - 128 mm at 13:53:00 2020-08-26 Channel 3 - 128 mm at 03:31:21 -- - 128 mm at 03:31:21 Underlying rhythm is atrial fibrillation; Average ventricular rate 60/min; range 33-134/min; About 45% of the time, rate <60/mn; Longest pause 3.2sec at 06:18am; No significant daytime pauses; Patient did not return diary Referred By: Hilda Jackman Overread By: HILDA JACKMAN
== END ==
LOC: HO.CARD 13:06
PROVIDERS: PCP Internal Medicine; Visit Provider Internal Medicine
DX: I48.19 Other persistent atrial fibrillation (principal)
CPT/HCPCS: 93226

== ENCOUNTER 2020-10-18 10:37 | Inpatient (IN) | payer MEDICARE, BC, SELFPAY ==
[2020-10-18] VITALS (11 sets, daily range): BP systolic 139–190; BP diastolic 70–88; PULSE 68–87; RESP 11–24; TEMP 36.6–37.6; O2SAT 92–100; BMI 24.4
--- NOTE | ~2020-10-18 | XR_ITS ---
EXAMINATION: LEFT HIP AND CHEST X-RAY. CLINICAL INFORMATION: Status post fall COMPARISON: None TECHNIQUE: Chest 2 views. Left hip and pelvis 3 views. FINDINGS: Chest: The lungs are hyperinflated but clear. The heart size and pulmonary vascularity is normal. No gross bony abnormality seen. AP pelvis and left hip: There is a left femoral neck fracture with mild angulation. No dislocation. The right hip joint and bilateral SI joints are symmetrical. No visible acute fractures seen. No lytic process. SI joints are normal. The soft tissues are normal. XR/XR chest 1V IMPRESSION: Left femoral neck fracture. No dislocation. Unremarkable chest exam.
--- NOTE | ~2020-10-18 | FL_ITS ---
EXAMINATION: XR BARIUM SWALLOW CLINICAL INFORMATION: Dysphagia COMPARISON: None FL/FL barium swallow modified FINDINGS/IMPRESSION: Patient refused to drink or swallow barium coated food. The exam was canceled.
--- NOTE | ~2020-10-18 | XR_ITS ---
EXAMINATION: XR CHEST CLINICAL INFORMATION: Shortness of breath COMPARISON: Chest radiographs 10/18/2020, 04/22/2020, 11/29/2019 TECHNIQUE: Portable upright AP view of the chest was obtained. FINDINGS: There are airspace opacities bilateral medial apex is representing new finding from recent studies 10/18/2020. Location may suggest aspiration. The upper and mid zones are clear. There is no definite effusion. The vascularity is normal. The heart is within limits of normal size. The hilar and mediastinal contours and bony structures are unremarkable. XR/XR chest 1V IMPRESSION: New bibasilar airspace opacities when compared with recent exam 10/18/2020. Location may suggest aspiration.
--- NOTE | ~2020-10-18 | CT_ITS ---
EXAMINATION: CT HEAD WITHOUT CONTRAST (STROKE PROTOCOL) CLINICAL INFORMATION: Stroke protocol. AMS. COMPARISON: CT brain 10/18/2020 TECHNIQUE: Contiguous axial imaging was performed from the skull base to vertex without intravenous administration of contrast. This CT examination was performed using dose optimization techniques as appropriate, variously including the following: *Automated exposure control *Adjustment of mA and/or kV according to patient size (this includes techniques or standardized protocols for targeted exams where dose is matched to indication/reason for exam; i.e. extremities or head) *Use of iterative reconstruction technique DLP: 769 mGy-cm FINDINGS: There is no intracranial hemorrhage, hematoma, or extra-axial fluid collection. The lateral ventricles are symmetrical in size and configuration but enlarged. There is mild periventricular hypodensity suggestive of chronic small vessel ischemic changes. There are punctate calcifications in bilateral basal ganglia There is no hydrocephalus, edema, or mass effect. The solo-white matter differentiation appears symmetric. There is no acute infarct or mass lesion. The calvarium appears intact. There is no pneumocephalus or orbital emphysema. The visualized sinuses and middle ears and mastoid air cells show no significant mucosal thickening. There are no air-fluid levels. CT/CT head for stroke IMPRESSION: No acute intracranial process seen. This critical result was discussed with Dr. Ghosh at 10:49 AM hours on 10/21/2020. It was ascertained that the content and urgency of the report was understood at the time of direct communication.
--- NOTE | ~2020-10-18 | XR_ITS ---
EXAMINATION: LEFT HIP AND CHEST X-RAY. CLINICAL INFORMATION: Status post fall COMPARISON: None TECHNIQUE: Chest 2 views. Left hip and pelvis 3 views. FINDINGS: Chest: The lungs are hyperinflated but clear. The heart size and pulmonary vascularity is normal. No gross bony abnormality seen. AP pelvis and left hip: There is a left femoral neck fracture with mild angulation. No dislocation. The right hip joint and bilateral SI joints are symmetrical. No visible acute fractures seen. No lytic process. SI joints are normal. The soft tissues are normal. XR/XR hip LT w [id number] IMPRESSION: Left femoral neck fracture. No dislocation. Unremarkable chest exam.
--- NOTE | ~2020-10-18 | CT_ITS ---
EXAMINATION: CT HIP WITHOUT CONTRAST, LEFT CLINICAL INFORMATION: Fracture COMPARISON: Radiograph performed earlier same day TECHNIQUE: Multidetector CT imaging of the left hip was performed without the use of intravenous contrast. Multiplanar reformats are reviewed. This CT examination was performed using dose optimization techniques as appropriate, variously including the following: *Automated exposure control *Adjustment of mA and/or kV according to patient size (this includes techniques or standardized protocols for targeted exams where dose is matched to indication/reason for exam; i.e. extremities or head) *Use of iterative reconstruction technique DLP: 251 mGy-cm FINDINGS: There is a left transcervical femoral fracture with 45 degrees apex anterior angulation, mild varus angulation and proximal displacement approximately 2 cm. The medial cortex of the fractured femoral neck is impacted into the femoral head. The femoral head itself is intact. No dislocation. Acetabulum is intact. No additional fractures. Imaged viscera demonstrates marked prostatomegaly with the median lobe impressing upon the bladder base approximately 2 cm. There is sigmoid colonic diverticulosis without evidence of diverticulitis. No pelvic sidewall hematoma or hemoperitoneum. Vascular calcifications are present. CT/CT hip LT wo con IMPRESSION: There is an angulated and displaced LEFT transcervical femoral fracture as described. No dislocation. Femoral head is intact.
--- NOTE | ~2020-10-18 | CT_ITS ---
EXAMINATION: CT HEAD WITHOUT CONTRAST CT CERVICAL SPINE WITHOUT CONTRAST CLINICAL INFORMATION: Fall. COMPARISON: CT head dated 11/28/2019 TECHNIQUE: Multidetector CT imaging of the head and cervical spine was performed without the use of intravenous contrast. Multiplanar reformats are reviewed. This CT examination was performed using dose optimization techniques as appropriate, variously including the following: *Automated exposure control *Adjustment of mA and/or kV according to patient size (this includes techniques or standardized protocols for targeted exams where dose is matched to indication/reason for exam; i.e. extremities or head) *Use of iterative reconstruction technique DLP: 806 mGy-cm. FINDINGS: There is no evidence of acute intracranial hemorrhage or territorial infarction. No abnormal mass effect or midline shift is seen. Lu to white matter differentiation is well preserved. No extra-axial fluid collections are identified. The ventricles are normal in size. Mild patchy subcortical and periventricular white matter low-attenuation changes statistically related to chronic white matter small vessel ischemic disease. Cavernous carotid calcifications. The osseous structures and soft tissues are normal. The mastoid air cells and visualized portions of the paranasal sinuses are well-aerated. No acute fracture or traumatic malalignment. There is slight anterolisthesis of C3 on C4 related to hypertrophic facet arthropathy on the right at C3-4 and ankylosis of the right posterior articular pillar at C2-3. There is degenerative ankylosis of the C4 and C5 vertebral bodies. Endplate osteophytes present from C2 to C6. There is 5 mm anterolisthesis of C7 on T1 related to hypertrophic facet arthropathy. There is at least moderate bilateral foraminal narrowing at C5-6 and C6-7 which is worse on the left. There is also moderate left foraminal narrowing at C4-5. CT/CT cervical spine wo con IMPRESSION: No acute intracranial pathology. No cervical spine fracture or malalignment. Cervical spondylosis as described.
--- NOTE | 2020-10-18 11:17 | ECG_ITS ---
Test Reason : FALL Blood Pressure : / mmHG Vent. Rate : 070 BPM Atrial Rate : 070 BPM P-R Int : 168 ms QRS Dur : 086 ms QT Int : 394 ms P-R-T Axes : 075 095 074 degrees QTc Int : 425 ms Normal sinus rhythm Rightward axis Borderline ECG When compared with ECG of 22-APR-2020 20:54, Sinus rhythm has replaced Atrial fibrillation Vent. rate has decreased BY 76 BPM Nonspecific T wave abnormality no longer evident in Inferior leads Nonspecific T wave abnormality, improved in Lateral leads Referred By: Therese Jeter Electronically Signed By:Cortes Adhikari
[2020-10-18 11:45] LABS: MANUAL DIFF FLAG NO
[2020-10-18 11:51] LABS: Basophils Percent Auto 0.1 % (0-2); Hematocrit 44.2 % (42-52); Hemoglobin 14.3 g/dl (14.0-18.0); Imm Gran Abs Auto 0.06 X10*3/uL (0.00-0.03); Imm Gran Pct Auto 0.4 % (0.0-0.4); Lymphocytes Absolute Auto 0.4 X10*3/uL (1.2-4.9); Lymphocytes Percent Auto 3.2 % (20-40); Mean Corpuscular HGB Conc 32.4 g/dl (31.0-36.0); Mean Corpuscular Hemoglobin 31.1 pg (27.0-33.0); Mean Corpuscular Volume 96.1 fL (80-98); Mean Platelet Volume 10.8 fL (9.4-12.4); Monocytes Absolute Auto 1.1 X10*3/uL (0.1-1.2); Neutrophils Percent Auto 88.3 % (45-73); Platelet Count 165 X10*3/uL (160-400); Red Cell Distribution Width 13.7 % (11.0-16.0); White Blood Count 13.6 X10*3/uL (4.8-10.8)
[2020-10-18 11:57] LABS: INTERNATIONAL NORM RATIO 1.3 (0.9-1.1); Prothrombin Time 14.4 SEC (9.9-13.0)
[2020-10-18 12:06] LABS: COVID-19 Test Negative (Negative)
[2020-10-18 12:27] LABS: B Type Natriuretic Peptide 659 pg/mL (<100)
[2020-10-18 12:28] LABS: Troponin-I High Sensitivity 41.9 ng/L (<3.5-35.0)
--- NOTE | 2020-10-18 12:31 | PM.SEPSISNOT ---
Sepsis Bolus Exclusion Sepsis Bolus Exclusion CHF/Renal Failure This patient met severe sepsis criteria due to the following condition(s):: Lactate>=4mmol/L In my clinical judgement the administration of 30 ml/kg of crystalloid would be detrimental to this patient due to the patient's following conditions:: NYHA class III or IV Heart Failure(symptoms with low exertion or rest) Replace the 30 mls/kg with: Colloids amount given in mls:: 200
--- NOTE | 2020-10-18 12:34 | ED_ITS ---
HPI - Fall General Chief Complaint: Fall Stated Complaint: L HIP & KNEE PAIN S/P FALL T-1 Time Seen by Provider: 10/18/20 10:39 Source: patient and EMS Mode of arrival: EMS Limitations: other (Poor historian) History of Present Illness HPI Narrative: 85-year-old male with a past medical history of cardiomyopathy, CHF, hypertension, AFib currently on Eliquis b.i.d. taking as prescribed per patient and CKD presenting to the ED via EMS after reports of a mechanical fall yesterday in his home or he reports he is unsure how he fell although when he fell he landed on his left hip and since then he has been unable to ambulate and having pain to his left hip. Patient reports that he was not having any symptoms prior to the fall such as dizziness, changes of vision, headaches, chest pain or shortness of breath or any other symptoms. Reports after the fall he is only having pain to the left hip otherwise no other symptoms. He reports that he lives alone and he has plenty of family members that live nearby such as his cousin. He denies hitting his head or losing consciousness or prolonged down time. He reports he is supposed to use a cane/walker although he does not like to use any of the assistive devices. complaint: fall Onset (ago): day(s) (Yesterday) Fall from: standing Fall witnessed: no Place fall occurred: home Loss of consciousness: none Prolonged down time: no Symptoms prior to fall: none Context: other (Patient is unsure why he fell) Location of injury - extremities: left: lower leg (hip) Severity: severe Severity scale (1-10): >10 Quality: aching Associated symptoms (after fall): denies Related Data Home Medications Medication Instructions Recorded Confirmed furosemide 40 mg tablet 40 mg PO DAILY 01/17/20 04/23/20 Previous Rx's Medication Instructions Recorded amiodarone 200 mg tablet 200 mg PO DAILY #90 tab 02/21/20 cefuroxime axetil 500 mg PO BID #10 tab 04/28/20 metoprolol succinate 50 mg PO BID #0 tab 04/28/20 apixaban 5 mg tablet 5 mg PO BID #180 cap 06/04/20 digoxin 125 mcg (0.125 mg) tablet 125 mcg PO DAILY #90 cap 08/12/20 Allergies Allergy/AdvReac Type Severity Reaction Status Date / Time streptomycin [Streptomycin] Allergy Mild UNKNOWN Verified 03/19/20 14:05 Penicillins Allergy Unknown unk Verified 03/19/20 14:05 Sulfa (Sulfonamide Allergy Unknown UNKNOWN Verified 05/29/20 14:24 Antibiotics) [SULFA (SULFONAMIDE ANTIBIOTICS)] Review of Systems Review of Systems: Constitutional : No changes in activity, No lethargy, No recent prior head injury, No agitation, No increased fussiness ENT/Mouth : No Ear Pain, No Nasal discharge/drainage Eyes: No Eye Pain, No Swelling, No Redness, No Foreign Body, No Vision Changes Cardiovascular : No Chest Pain, No SOB, no dyspnea on exertion, no orthopnea, no palpitations, Respiratory : No Cough, no sputum production Gastrointestinal : No Nausea, No Vomiting, No abdominal Pain Genitourinary : No Dysuria, No Urinary Frequency, No Urinary Incontinence, No Urgency, No Flank Pain Musculoskeletal : Positive left hip joint pain, No neck stiffness, No back pain/injury Skin : No lacerations Neuro : No unsteady gait, No Paresthesias, No Loss of Consciousness, No altered mental status, No Headache, no dizziness Yes all other systems are reviewed and are negative [facility] Past Medical History Attestation statement: The following information was validated with the patient. Medical History Cardiomyopathy, unspecified CHF (congestive heart failure) HTN (hypertension) HTN (hypertension) Persistent atrial fibrillation Family History Family History Father No problems noted. Mother No problems noted. Social History Social History Alcohol intake: never Advance Directives: Yes Advance Directives on File: Yes Advance Directives Date on File: 04/29/20 service: Yes Current occupational status: retired Physical Exam Vital Signs: Vital Signs: Last Vital Signs Temp 98.4 F 10/18/20 12:40 Pulse 70 10/18/20 12:40 Resp 24 H 10/18/20 12:40 BP 155/72 H 10/18/20 12:40 Pulse Ox 100 10/18/20 12:40 Body Mass Index 24.4 Vital signs have been reviewed as normal and appeared to be correct. Blood pressure hypertensive 190/75. Heart rate normal. Respiration rate normal. Temperature normal. Oxygen saturation normal. Appearance: Alert. Oriented X3. No acute distress. Although unkept and disheveled patient is saturated in feces and urine and feces are stuck all over his body including between his toes. Head: Normal external exam. Normocephalic. Atraumatic. Able to rotate head bilaterally. Eyes: PERRLA. EOMI. No nystagmus noted. Conjunctiva and sclera normal. Eyelids normal. Corneal reflex normal. ENT: EAC normal. TM's Normal. No septal hematoma noted. No hemotympanum noted. Hearing normal. Pharynx normal. Uvula midline. tongue midline. Dry mucous membranes. No trismus noted. No drooling noted. No muffled voice noted. No nystagmus noted. Neck: Normal inspection. Neck supple. FROM. No adenopathy. Trachea midline. Thyroid Normal. No meningeal signs. No neck mass noted. CVS: Normal heart rate and rhythm. Heart sound normal. No murmurs noted. Pulses normal throughout. Respiratory: No respiratory distress. Painless inspiration. Decreased breath sounds with rales/rhonchi noted. No wheezes noted. Chest nontender. No accessory muscle usage noted or decreased air movement noted. Abdomen: Soft and nontender. Bowel sounds normal in all 4 quadrants. No distention noted. No organomegaly noted. No visible injury noted. : Patient has erythema to groin area consistent with candidal intertrigo. Back: No CVA tenderness. Full range of motion noted. Skin: Patient has poor skin turgor with feces stuck to his entire body including his toes has multiple pressure ulcers on his back/buttocks and calcaneus aspects of his bilateral feet. No purulent drainage is noted. The rest of the skin is warm and dry. Normal skin color. No lacerations noted. Extremities: Positive bilateral +3 pitting edema to lower extremity. No calf tenderness is noted. Patient with tenderness to palpation to left hip with limited range of motion and the left leg is shortened and externally rotated. Otherwise all other Extremities exhibit normal range of motion and nontender. Able to shrug shoulders bilaterally and keep up against resistance. Neuro: Oriented X 3. No motor deficit. No sensory deficit. Patient is moving all extremities except left hip due to pain. No focal motor deficits. Cranial nerves II-XI intact bilaterally. Facial strength normal. Normal cognition. Speech normal. Normal strength throughout. Equal strength bilaterally. No pronator drift. No tremor noted. No fasciculations noted. No rigidity noted. Muscle tone normal throughout. No asterixis noted. [id number] test normal. Hand drop from overhead Misses face. NIHSS score 0. Course Course Course Narrative: 11:20am - 85-year-old male with a past medical history of cardiomyopathy, CHF, hypertension, AFib currently on Eliquis b.i.d. taking as prescribed per patient and CKD presenting to the ED via EMS after reports of a mechanical fall yesterday in his home or he reports he is unsure how he fell although when he fell he landed on his left hip and since then he has been unable to ambulate and having pain to his left hip. - On exam patient is alert and oriented x3. Not in any acute distress. Altho ugh he is saturated and feces and urine and feces are actually stuck on his entire body including between his toes. Otherwise no focal neuro deficits are noted. Lungs have decreased breath sounds with rhonchi and rales noted. No wheezes. No respiratory distress. CV RRR. Abdomen is soft and nontender. Patient has multiple pressure wounds and lesions to his body along with candidial interigo to the groin area. Patient with tenderness to palpation to left hip joint with limited range of motion in the leg is externally rotated and shortened. Otherwise he has no tenderness to any other extremities and there are no signs of trauma anywhere else. Plan: Labs, CT scan of brain/cervical spine/left hip, chest x-ray, left hip x- ray, lactic acid, blood cultures, COVID swab provide 4 mg of Zofran and morphine for pain along with nystatin then re-evaluate. Reevaluation(s) Reevaluation #1: - white blood cell count 33709. BUN/creatinine 39/1.46 . Random glucose 135. Total bilirubin 1.8. AST 44. Troponin 41.9. BNP 659. Lactic acid is 4.0 and due to patient having a history of congestive heart failure and CKD he is excluded for fluids and will be receiving 200 mL of albumin IV along with 2 g of cefepime. - CT scan of brain and cervical spine without contrast revealed chronic changes otherwise no other acute processes noted. - chest x-ray unremarkable. - left hip x-ray revealed left femoral neck fracture no dislocation is noted. - CT scan of left hip revealed angulated and displaced left transcervical femoral fracture no dislocation femoral head is intact. Otherwise no other acute processes are noted. - therefore patient will need to be admitted for fall, left femoral fracture, possible cellulitis, candidial to groin, acute on chronic CHF, acute on chronic kidney failure patient understands agrees with this plan. Time: 13:00 [facility] - Fall Medical Records Attestation: I reviewed the patient's medical records. Lab Data Attestation: I reviewed the patient's lab results. Result diagrams: 10/18/20 11:39 10/18/20 12:54 Labs: Lab Results 10/18/20 10/18/20 10/18/20 Range/Units 11:38 11:38 11:38 WBC (4.8-10.8) X10*3/uL RBC (4.60-5.80) X10*6/uL Hgb (14.0-18.0) g/dl Hct (42-52) % MCV (80-98) fL MCH (27.0-33.0) pg MCHC (31.0-36.0) g/dl RDW (11.0-16.0) % Plt Count (160-400) X10*3/uL MPV (9.4-12.4) fL Immature Gran % (Auto) (0.0-0.4) % Neut % (Auto) (45-73) % Lymph % (Auto) (20-40) % [place] % (Auto) (2-11) % Eos % (Auto) (0-4) % Baso % (Auto) (0-2) % Lymph # (Auto) (1.2-4.9) X10*3/uL [place] # (Auto) (0.1-1.2) X10*3/uL Eos # (Auto) (0.0-0.4) X10*3/uL Baso # (Auto) (0.0-0.2) X10*3/uL Abs Immat Gran (auto) (0.00-0.03) X10*3/uL Absolute Neuts (auto) (2.0-8.3) X10*3/uL Absolute Nucleated RBC (0.0-0.012) X10*3/uL Nucleated RBC % (auto) (0.0-0.2) /100WBC PT (9.9-13.0) SEC INR (0.9-1.1) Sodium (135-145) mmol/L Potassium (3.3-5.1) mmol/L Chloride (96-108) mmol/L Carbon Dioxide (22-29) mmol/L Anion Gap (12-20) BUN (9-16) mg/dL Creatinine (0.5-1.4) mg/dL Estim Creat Clear Calc Estimated GFR Random Glucose (60-115) mg/dL Lactic Acid 4.0 H* (0.5-2.0) mmol/L Calcium (8.4-10.2) mg/dL Magnesium (1.6-2.6) mg/dL Total Bilirubin (0.0-1.0) mg/dL AST (5-37) U/L ALT (0-40) U/L Alkaline Phosphatase (39-117) U/L Troponin I High Sens 41.9 H* (<3.5-35.0) ng/L B-Natriuretic Peptide 659 H (<100) pg/mL Total Protein (6.5-8.0) g/dL Albumin (3.5-5.0) g/dL COVID-19 (KAMAR) Negative (Negative) COVID-19 Clin Com See Note 10/18/20 10/18/20 10/18/20 Range/Units 11:39 11:39 12:54 WBC 13.6 H (4.8-10.8) X10*3/uL RBC 4.60 (4.60-5.80) X10*6/uL Hgb 14.3 (14.0-18.0) g/dl Hct 44.2 (42-52) % MCV 96.1 (80-98) fL MCH 31.1 (27.0-33.0) pg MCHC 32.4 (31.0-36.0) g/dl RDW 13.7 (11.0-16.0) % Plt Count 165 (160-400) X10*3/uL MPV 10.8 (9.4-12.4) fL Immature Gran % (Auto) 0.4 (0.0-0.4) % Neut % (Auto) 88.3 H (45-73) % Lymph % (Auto) 3.2 L (20-40) % [place] % (Auto) 8.0 (2-11) % Eos % (Auto) 0.0 (0-4) % Baso % (Auto) 0.1 (0-2) % Lymph # (Auto) 0.4 L (1.2-4.9) X10*3/uL [place] # (Auto) 1.1 (0.1-1.2) X10*3/uL Eos # (Auto) 0.0 (0.0-0.4) X10*3/uL Baso # (Auto) 0.0 (0.0-0.2) X10*3/uL Abs Immat Gran (auto) 0.06 H (0.00-0.03) X10*3/uL Absolute Neuts (auto) 12.0 H (2.0-8.3) X10*3/uL Absolute Nucleated RBC 0.000 (0.0-0.012) X10*3/uL Nucleated RBC % (auto) 0.0 (0.0-0.2) /100WBC PT 14.4 H (9.9-13.0) SEC INR 1.3 H (0.9-1.1) Sodium 141 (135-145) mmol/L Potassium 4.7 (3.3-5.1) mmol/L Chloride 105 (96-108) mmol/L Carbon Dioxide 24 (22-29) mmol/L Anion Gap 17 (12-20) BUN 39 H D (9-16) mg/dL Creatinine 1.46 H (0.5-1.4) mg/dL Estim Creat Clear Calc 40.6 Estimated GFR 46 Random Glucose 135 H (60-115) mg/dL Lactic Acid (0.5-2.0) mmol/L Calcium 9.3 D (8.4-10.2) mg/dL Magnesium 2.1 (1.6-2.6) mg/dL Total Bilirubin 1.8 H (0.0-1.0) mg/dL AST 44 H (5-37) U/L ALT 28 (0-40) U/L Alkaline Phosphatase 60 D (39-117) U/L Troponin I High Sens (<3.5-35.0) ng/L B-Natriuretic Peptide (<100) pg/mL Total Protein 6.9 (6.5-8.0) g/dL Albumin 4.0 (3.5-5.0) g/dL COVID-19 (KAMAR) (Negative) COVID-19 Clin Com ECG Data Attestation: I personally reviewed and interpreted this ECG as follows: ECG interpretation date: 10/18/20 ECG interpretation time: 11:32 Interpretation: Normal sinus rhythm with ventricular rate of 70 with a rightward axis. No acute ischemic changes are noted. Critical Care Time Critical Care Time Critical Care Time: Yes Total Critical Care Time: 60 Attestation: I personally attest to this time spent taking care of the patient Discharge Plan Discharge Clinical Impression: Acute kidney injury superimposed on chronic kidney disease, Acute exacerbation of CHF (congestive heart failure), Cellulitis, Pressure sore, Candidal intertrigo, Closed left femoral fracture Patient Disposition: Admitted As Inpatient Prescriptions: No Action amiodarone 200 mg tablet 200 mg PO DAILY Qty: 90 RF: 1 apixaban [Eliquis] 5 mg tablet 5 mg PO BID Qty: 180 RF: 3 digoxin 125 mcg (0.125 mg) tablet 125 mcg PO DAILY Qty: 90 RF: 4 cefuroxime axetil 500 mg tablet 500 mg PO BID Qty: 10 RF: 0 metoprolol succinate 25 mg tablet extended release 24 hr 50 mg PO BID Qty: 0 RF: 0 furosemide 40 mg tablet 40 mg PO DAILY RF: 0
--- NOTE | 2020-10-18 12:34 | PC.NURSE ---
PARIS ALEXANDER (COUSIN) CALLED WOULD LIKE UPDATES ON IF PT IS GOING TO STAY IN THE HOSPITAL OR NOT
[2020-10-18] MEDS: ondansetron HCL 4 MG/2 ML VIAL IVPUSH (12:43)
[2020-10-18] MEDS: Morphine Sulfate 4 MG/ML CARTRIDGE IVPUSH (12:43)
[2020-10-18] MEDS: cefEPime HCl 2 GM in 0.9 % Sodium Chloride 50 ML IV (13:25)
[2020-10-18 13:28] LABS: Alanine Aminotransferase 28 U/L (0-40); Alkaline Phosphatase 60 U/L (39-117); Anion Gap 17 (12-20); Aspartate Amino Transferase 44 U/L (5-37); Bilirubin Total 1.8 mg/dL (0.0-1.0); Blood Urea Nitrogen 39 mg/dL (9-16); Calcium 9.3 mg/dL (8.4-10.2); Carbon Dioxide 24 mmol/L (22-29); Chloride 105 mmol/L (96-108); Creatinine Clr Calc Pharmacy 40.6; Estimated Glomerular Filt Rate 46; Glucose Random 135 mg/dL (60-115); Magnesium 2.1 mg/dL (1.6-2.6); Potassium 4.7 mmol/L (3.3-5.1); Sodium 141 mmol/L (135-145); Total Protein 6.9 g/dL (6.5-8.0)
[2020-10-18 13:43] LABS: Reflex Lactate? Lactic Acid Added
[2020-10-18] MEDS: Albumin Human 25 % 100 ML IV ×2 (13:57→15:10)
[2020-10-18 14:32] LABS: Glucose Urine UA NEG (NEG); Leukocyte Esterase Urine NEG (NEG); Nitrite Urine NEG (NEG); Specific Gravity - Urine 1.025 (1.005-1.025); Urine Blood 2+ (NEG); Urine Ketones NEG (NEG); Urine Protein 2+ MG/DL (NEG-TRACE)
[2020-10-18 14:34] LABS: Appearance Urine HAZY; Color Urine YELLOW; UACC Culture Trigger YES
[2020-10-18] MEDS: Furosemide 40 MG/4 ML VIAL IVPUSH ×2 (14:39→21:17)
[2020-10-18 14:52] LABS: ~Lactic Acid-LAB USE ONLY 0.5 mmol/L (0.5-2.0)
[2020-10-18 15:07] LABS: Troponin-I High Sensitivity 37.1 ng/L (<3.5-35.0)
--- NOTE | 2020-10-18 15:08 | PC.NURSE ---
Ortho team at bedside, plan to admit pt explained to him. stabilization of labs prior to hip surgery. pt aware of plan.
--- NOTE | 2020-10-18 15:18 | P.CONOP_ITS ---
History of Present Illness HPI Consult date: 10/18/20 Consult reason: joint pain and fracture Chief complaint: L HIP & KNEE PAIN S/P FALL T-1 Narrative: Mr. Daugherty is an 85-year-old gentleman who presents to emergency department today. He states that he took a mechanical fall on landing on left hip but he has difficulty recalling the timeline of events. He reports that he lives alone and a family member came to check on him. It is unclear if the patient was on the ground at that point in time oral was sitting in a chair. Of note when the patient presented to the ED the providers noticed that he was covered in feces and urine throughout most of his body including his toes. The patient states that he felt immediate pain after the fall and had difficulty with ambulation. However, he reports that he was able to stand and walk. He denies any loss of consciousness or head strike. He has a significant medical history that is positive for a cardiomyopathy, CHF, hypertension, CKD and AFib in which he is currently on Eliquis twice a day. He is unsure when his last dose of Eliquis was. He states that he is supposed to use a cane/walker altho ugh he does not like to use these. Review of Systems Review of Systems: Yes all other systems are reviewed and are negative PMFSH Past Medical History Medical History Cardiomyopathy, unspecified CHF (congestive heart failure) HTN (hypertension) HTN (hypertension) Persistent atrial fibrillation Family History Family History Father No problems noted. Mother No problems noted. Social History Social History Alcohol intake: never Advance Directives: Yes Advance Directives on File: Yes Advance Directives Date on File: 04/29/20 service: Yes Current occupational status: retired Meds Allergies Allergy/AdvReac Type Severity Reaction Status Date / Time streptomycin [Streptomycin] Allergy Mild UNKNOWN Verified 03/19/20 14:05 Penicillins Allergy Unknown unk Verified 03/19/20 14:05 Sulfa (Sulfonamide Allergy Unknown UNKNOWN Verified 05/29/20 14:24 Antibiotics) [SULFA (SULFONAMIDE ANTIBIOTICS)] Home Medications Medication Instructions Recorded Confirmed Last Taken Type furosemide 40 mg tablet 40 mg PO DAILY 01/17/20 04/23/20 Unknown History Physical Exam Vital Signs: Vital Signs: Last Vital Signs Temp 98.4 F 10/18/20 12:40 Pulse 70 10/18/20 12:40 Resp 24 H 10/18/20 12:40 BP 155/72 H 10/18/20 12:40 Pulse Ox 100 10/18/20 12:40 Body Mass Index 24.4 Const: General: cooperative, comfortable, no acute distress, alert and awake Orientation/consciousness: patient oriented x3 HENMT: Head: Yes normal to inspection, Yes normocephalic and Yes atraumatic Eyes: General: appearance normal, both eyes and all related structures Neck: Neck: Yes normal visual inspection and Yes no lymphadenopathy Resp: Effort & Inspection: normal respiratory effort and able to speak in complete sentences Cardio: Rate: regular rate Peripheral pulses: Peripheral pulses 2+ throughout GI: Inspection: Yes normal to inspection Palpation (GI): Soft to palpation Skin: General skin exam: no rashes or lesions noted Neuro: General: patient oriented x3 Extrem: Other: Left hip skin is intact with no lesions or abrasions. Left lower extremity is short and externally rotated. Patient is a man able to demonstrate straight leg raise. Pain with log roll. He is able to plantar flex and dorsiflex. Sensation is intact. Capillary refill intact. Psych: Mental Status: mental status grossly normal Results Labs Result Diagrams: 10/18/20 11:39 10/18/20 12:54 Labs: Abnormal lab results 10/18/20 10/18/20 10/18/20 Range/Units 11:38 11:38 11:39 WBC 13.6 H (4.8-10.8) X10*3/uL Neut % (Auto) 88.3 H (45-73) % Lymph % (Auto) 3.2 L (20-40) % Lymph # (Auto) 0.4 L (1.2-4.9) X10*3/uL Abs Immat Gran (auto) 0.06 H (0.00-0.03) X10*3/uL Absolute Neuts (auto) 12.0 H (2.0-8.3) X10*3/uL PT (9.9-13.0) SEC INR (0.9-1.1) BUN (9-16) mg/dL Creatinine (0.5-1.4) mg/dL Random Glucose (60-115) mg/dL Lactic Acid 4.0 H* (0.5-2.0) mmol/L Total Bilirubin (0.0-1.0) mg/dL AST (5-37) U/L Total Creatine Kinase (38-174) U/L Troponin I High Sens 41.9 H* (<3.5-35.0) ng/L B-Natriuretic Peptide 659 H (<100) pg/mL Urine Protein (NEG-TRACE) MG/DL Urine Blood (NEG) 10/18/20 10/18/20 10/18/20 Range/Units 11:39 12:54 13:58 WBC (4.8-10.8) X10*3/uL Neut % (Auto) (45-73) % Lymph % (Auto) (20-40) % Lymph # (Auto) (1.2-4.9) X10*3/uL Abs Immat Gran (auto) (0.00-0.03) X10*3/uL Absolute Neuts (auto) (2.0-8.3) X10*3/uL PT 14.4 H (9.9-13.0) SEC INR 1.3 H (0.9-1.1) BUN 39 H D (9-16) mg/dL Creatinine 1.46 H (0.5-1.4) mg/dL Random Glucose 135 H (60-115) mg/dL Lactic Acid (0.5-2.0) mmol/L Total Bilirubin 1.8 H (0.0-1.0) mg/dL AST 44 H (5-37) U/L Total Creatine Kinase 1793 H (38-174) U/L Troponin I High Sens (<3.5-35.0) ng/L B-Natriuretic Peptide (<100) pg/mL Urine Protein 2+ H (NEG-TRACE) MG/DL Urine Blood 2+ H (NEG) 10/18/20 Range/Units 14:23 WBC (4.8-10.8) X10*3/uL Neut % (Auto) (45-73) % Lymph % (Auto) (20-40) % Lymph # (Auto) (1.2-4.9) X10*3/uL Abs Immat Gran (auto) (0.00-0.03) X10*3/uL Absolute Neuts (auto) (2.0-8.3) X10*3/uL PT (9.9-13.0) SEC INR (0.9-1.1) BUN (9-16) mg/dL Creatinine (0.5-1.4) mg/dL Random Glucose (60-115) mg/dL Lactic Acid (0.5-2.0) mmol/L Total Bilirubin (0.0-1.0) mg/dL AST (5-37) U/L Total Creatine Kinase (38-174) U/L Troponin I High Sens 37.1 H* (<3.5-35.0) ng/L B-Natriuretic Peptide (<100) pg/mL Urine Protein (NEG-TRACE) MG/DL Urine Blood (NEG) H & H 10/18/20 Range/Units 11:39 Hgb 14.3 (14.0-18.0) g/dl Hct 44.2 (42-52) % Coagulation 10/18/20 Range/Units 11:39 INR 1.3 H (0.9-1.1) All other labs normal. Assessment and Plan (1) Fracture of femoral neck, left: Status: Acute Mr. Daugherty is an 85-year-old male who presents to the emergency department today after sustaining a mechanical fall. While in the emergency department x- rays were obtained of his left hip which demonstrate a left femoral neck fracture. While in the emergency department the patient was also found to have on acute kidney injury superimposed on chronic kidney disease, Acute exacerbation of CHF, as well as elevated troponins. I discussed the case with Dr. Gibbons and explained the extent of the injury to the patient and options available which include surgical intervention. I explained the procedure in detail along with the length of recovery and rehab course. I explained the risk, benefits and alternatives. Risk including, but not limited to infection, blood clots, bleeding, non union or malunion and nerve/tissue damage to surrounding areas. I answered all their questions and with their understanding they have consented to move forward with Operative Fixation of the left hip . Patient is on Eliquis and needs to be off of this medication for 48 hours in order to proceed with surgery. He will be T&S, med clearance will be obtained by Medicine and Cardiology and he will be NPO after midnight the night before surgery. Procedures Date of Service Date of Service: 10/18/20
--- NOTE | 2020-10-18 15:28 | PM.EVENT ---
Event Note Date of Service: 10/19/20 Event Note: Addendum to history and physical by mid-level provider NELSON Ricardo I interviewed and examined the patient. I discussed their presentation and management with the mid-level provider. I reviewed the history and physical and agree with the documentation, with the following additions and corrections: 85yo M with AF on apixaban, HFrEF who lives alone and fell, possibly 2d prior to admission but he is not entirely sure. he is a poor historian. He was found by a relative to be sitting on a chair in the kitchen and unable to ambulate. Found in the ED to have LAUREN, mild rhabdomyolysis, lactic acidosis, and most signiticantly, an angulated and displaced L femoral fracture. Surprisingly, his pain is minimal On exam, he is oriented though as noted above, a poor historian. LLE is externally rotated and shortened. Plan admit to [facility], HOLD apixaban, consult Cardiology for preoperative workup and obtain TTE. Give slow, gentle IV fluid hydration for rhabdo + LAUREN given low EF. Meets SIRS criteria but suspect due to fracture and rhabdomyolysis. Pt is DNR/DNI
--- NOTE | 2020-10-18 15:39 | P.HPHOSP_ITS ---
History of Present Illness Date of Service: 10/18/20 Chief Complaint: Fall This is an 85-year-old male who was brought to the emergency department by ambulance after a fall. The patient is a poor historian and is unable to describe the details surrounding his fall. He typically has someone check on him daily however that person was not available on Tuesday. His last known well time was sometime on . He thinks he may have fallen on but can not remember for sure or why he fell. This morning a family member came to check on him and found him sitting on a chair in the kitchen. She noticed that he was unable to stand up. He was brought to the ED for evaluation. Imaging studies showed an angulated and displaced left femoral fracture. Lab work was significant for creatinine of 1.46, lactic acid 4.0, BNP 659, troponin 41, and cpk of 1793. At this time the patient denies any chest pain, shortness of breath, palpitations. His pain is adequately controlled. He was given a dose of home morphine for pain control and the decision was made to admit him to the hospital for further management. Given underlying medical comorbidities the decision was made to admit him to the medical service with consultation to orthopedic surgery. Review of Systems Review of Systems: Yes all other systems are reviewed and are negative Constitutional: Constitutional: Denies chills and Denies fever(s) Cardiovascular: Cardiovascular: Denies chest pain Respiratory: Respiratory: Denies cough Gastrointestinal: Gastrointestinal: Denies abdominal pain [facility] Medical History Cardiomyopathy, unspecified CHF (congestive heart failure) HTN (hypertension) HTN (hypertension) Persistent atrial fibrillation Functional capacity: independent ambulation Family History Father No problems noted. Mother No problems noted. Surgical History (Updated 10/18/20 @ 15:57 by NELSON Rebollar) Hx of appendectomy Social History Alcohol intake: never Advance Directives: Yes Advance Directives on File: Yes Advance Directives Date on File: 04/29/20 service: Yes Current occupational status: retired Meds Allergies Allergy/AdvReac Type Severity Reaction Status Date / Time streptomycin [Streptomycin] Allergy Mild UNKNOWN Verified 03/19/20 14:05 Penicillins Allergy Unknown unk Verified 03/19/20 14:05 Sulfa (Sulfonamide Allergy Unknown UNKNOWN Verified 05/29/20 14:24 Antibiotics) [SULFA (SULFONAMIDE ANTIBIOTICS)] Home Medications Medication Instructions Recorded Confirmed Last Taken Type furosemide 40 mg tablet 20 mg PO DAILY 01/17/20 10/18/20 Unknown History metoprolol tartrate 1 tab PO BID 10/18/20 10/18/20 Unknown History potassium chloride 1 tab PO DAILY 10/18/20 10/18/20 Unknown History Physical Exam Vital Signs and Narrative: Vital Signs: Last Vital Signs Temp 98.4 F 10/18/20 12:40 Pulse 70 10/18/20 12:40 Resp 24 H 10/18/20 12:40 BP 155/72 H 10/18/20 12:40 Pulse Ox 100 10/18/20 12:40 Body Mass Index 24.4 Const: General: comfortable, no acute distress, alert and awake Nutritional Appearance: well nourished Orientation/consciousness: oriented to person and oriented to place HENMT: Head: Yes normocephalic and Yes atraumatic Eyes: Sclerae: sclerae normal Chest: Chest palpation & inspection: normal inspection of the chest Resp: Effort & Inspection: normal respiratory effort and no respiratory distress Auscultation: clear to auscultation bilaterally Cardio: Rate: regular rate Rhythm: regular rhythm GI: Palpation (GI): Soft to palpation and nontender Skin: Other: Neuro: General: oriented to person and oriented to place Cranial nerves: Yes CN's II-XII intact bilaterally and Yes Bilaterally intact EOM present Extrem: Other: left leg ER and shortened; chronic skin changes as above; left leg edema Results Labs CBC and Chem 7: 10/18/20 11:39 10/18/20 12:54 Labs: Laboratory Results - last 24 hr 10/18/20 10/18/20 10/18/20 11:38 11:38 11:38 MCV MCH MCHC RDW Plt Count MPV Immature Gran % (Auto) Neut % (Auto) Lymph % (Auto) Crowley % (Auto) Eos % (Auto) Baso % (Auto) Lymph # (Auto) Crowley # (Auto) Eos # (Auto) Baso # (Auto) Abs Immat Gran (auto) Absolute Neuts (auto) Absolute Nucleated RBC Nucleated RBC % (auto) PT INR Anion Gap Estim Creat Clear Calc Estimated GFR Random Glucose Lactic Acid 4.0 H* Lactic Acid Fup @ 2Hr Calcium Magnesium Total Bilirubin AST ALT Alkaline Phosphatase Total Creatine Kinase Troponin I High Sens 41.9 H* B-Natriuretic Peptide 659 H Total Protein Albumin Urine Color Urine Appearance Urine pH Ur Specific [place] Urine Protein Urine Glucose (UA) Urine Ketones Urine Blood Urine Nitrite Ur Leukocyte Esterase COVID-19 ([facility]) Negative COVID-19 Clin Com See Note 10/18/20 10/18/20 10/18/20 11:39 11:39 12:54 MCV 96.1 MCH 31.1 MCHC 32.4 RDW 13.7 Plt Count 165 MPV 10.8 Immature Gran % (Auto) 0.4 Neut % (Auto) 88.3 H Lymph % (Auto) 3.2 L Crowley % (Auto) 8.0 Eos % (Auto) 0.0 Baso % (Auto) 0.1 Lymph # (Auto) 0.4 L Crowley # (Auto) 1.1 Eos # (Auto) 0.0 Baso # (Auto) 0.0 Abs Immat Gran (auto) 0.06 H Absolute Neuts (auto) 12.0 H Absolute Nucleated RBC 0.000 Nucleated RBC % (auto) 0.0 PT 14.4 H INR 1.3 H Anion Gap 17 Estim Creat Clear Calc 40.6 Estimated GFR 46 Random Glucose 135 H Lactic Acid Lactic Acid Fup @ 2Hr Calcium 9.3 D Magnesium 2.1 Total Bilirubin 1.8 H AST 44 H ALT 28 Alkaline Phosphatase 60 D Total Creatine Kinase 1793 H Troponin I High Sens B-Natriuretic Peptide Total Protein 6.9 Albumin 4.0 Urine Color Urine Appearance Urine pH Ur Specific [place] Urine Protein Urine Glucose (UA) Urine Ketones Urine Blood Urine Nitrite Ur Leukocyte Esterase COVID-19 ([facility]) [employer] 10/18/20 10/18/20 10/18/20 13:58 14:23 14:23 MCV MCH MCHC RDW Plt Count MPV Immature Gran % (Auto) Neut % (Auto) Lymph % (Auto) Crowley % (Auto) Eos % (Auto) Baso % (Auto) Lymph # (Auto) Crowley # (Auto) Eos # (Auto) Baso # (Auto) Abs Immat Gran (auto) Absolute Neuts (auto) Absolute Nucleated RBC Nucleated RBC % (auto) PT INR Anion Gap Estim Creat Clear Calc Estimated GFR Random Glucose Lactic Acid Lactic Acid Fup @ 2Hr 0.5 Calcium Magnesium Total Bilirubin AST ALT Alkaline Phosphatase Total Creatine Kinase Troponin I High Sens 37.1 H* B-Natriuretic Peptide Total Protein Albumin Urine Color YELLOW Urine Appearance HAZY Urine pH 6.0 Ur Specific [place] 1.025 Urine Protein 2+ H Urine Glucose (UA) NEG Urine Ketones NEG Urine Blood 2+ H Urine Nitrite NEG Ur Leukocyte Esterase NEG COVID-19 ([facility]) COVID-19 Clin Com Imaging Radiologist's Impressions: Impressions Cervical Spine CT 10/18/20 11:18 IMPRESSION: No acute intracranial pathology. No cervical spine fracture or malalignment. Cervical spondylosis as described. Chest X-Ray 10/18/20 11:18 IMPRESSION: Left femoral neck fracture. No dislocation. Unremarkable chest exam. Head CT 10/18/20 11:18 IMPRESSION: No acute intracranial pathology. No cervical spine fracture or malalignment. Cervical spondylosis as described. Hip CT 10/18/20 11:19 IMPRESSION: There is an angulated and displaced LEFT transcervical femoral fracture as described. No dislocation. Femoral head is intact. Hip/Pelvis X-Ray 10/18/20 11:19 IMPRESSION: Left femoral neck fracture. No dislocation. Unremarkable chest exam. Assessment and Plan (1) Fracture of femoral neck, left: Status: Acute (2) Acute kidney injury superimposed on chronic kidney disease: Status: Acute This is an 85-year-old male with a history cardiomyopathy, atrial fibrillation on Eliquis, hypertension brought to the emergency department after a fall found to have left hip fracture, lactic acidosis, LAUREN, elevated CPK Left femoral neck fracture According to family member meds for this morning and last night still in pill box. Last dose of Eliquis presumed to be morning of 10/17 -management per Orthopedic Service -echocardiogram, cardiology for preoperative evaluation -pain management -bowel regimen Rhabdo CPK 1793 -gentle IVF given underlying CHF with low LFEF -trend CPK LAUREN -gentle IVF as above -follow BMP Elevated toponin No chest pain, no acute ischemic changes on EKG Likely stress related from fall/fracture SIRS Pt meets criteria with RR 24, WBC 13.6 Lactic acid elevated at 4 on arrival now resolved Leukocytosis appears to be in part chronic in nature CXR, UA negative Empiric abx given in ED No evidence of infection/sepsis. Reactive in setting of fall/hip fracture. -follow CBC -Blood cultures pending Atrial fibrillation -continue amiodarone, metoprolol, digoxin -Eliquis due to plan for surgery HFrEF EF 15-20% -hold lasix for LAUREN -monitor fluid status closely -continue BB DVT ppx - boots; eliquis on hold for surgery Code status - MOLST on file DNR/DNI Attending: Dr. Vargas Quality Stroke Does the patient have a stroke diagnosis?: No VTE Prior VTE?: No VTE Risk Level:: Medical - moderate - high VTE Device Contraindication: N/A - Device Ordered VTE Drug Contraindication: Treatment Not Indicated
[2020-10-18] MEDS: Lactated Ringers 1,000 ML 50 ML IVCONT (16:11)
[2020-10-18 16:22] LABS: Bacteria Urine 1+ /LPF; RBC Urine 0-2 /HPF (0)
--- NOTE | 2020-10-18 18:29 | PC.NURSE ---
Addendum entered by Marleen Dodge RN 10/18/20 18:32: Cousin, Yane, aware that pt gets confused assumed it was part of his age Original Note: RN found pt naked in bed, pulling at his lines. pt is confused, believes he is at a vegetable farm and trying to buy t-shirts. pt believing it is 1981. this RN made a call to pts cousin for update of plan to have pt go inpaitent.
--- NOTE | 2020-10-18 19:08 | PC.NURSE ---
Pt aaox1, oriented only to self, resting on stretcher in NAD, breathing with ease on RA. Pt denies pain/discomfort, is found resting on R side, repositioned to back with pillows beneath BLE in position of comfort and to elevate heels from stretcher. Pt conversational despite confusion. Pt maintenance IVF continue without issue. Pt remains afib on quality assurance monitor body, rate controlled in 80s. Pt offers no complaints. Pt stretcher in low locked position, rails raised, call carrillo within reach and accessible to pt. Pt has bed assignment, day RN Marleen Dodge attempted report but admission RN unable to take report at this time.
--- NOTE | 2020-10-18 19:44 | PC.NURSE ---
Dr Vazquez TT regarding O2 sat and intervention of NC
[2020-10-18] MEDS: Sennosides 8.6 MG TABLET 17.2 MG PO (21:16)
[2020-10-18] MEDS: Metoprolol Tartrate 25 MG TABLET PO (21:16)
[2020-10-19] VITALS (7 sets, daily range): BP systolic 126–157; BP diastolic 64–101; PULSE 57–66; RESP 16–18; TEMP 36.2–36.7; O2SAT 92–98
[2020-10-19 06:30] LABS: Basophils Percent Auto 0.1 % (0-2); MANUAL DIFF FLAG SCAN; PLT CLUMP 1; Red Blood Count 4.07 X10*6/uL (4.60-5.80); SCAN SMEAR FLAG 1
[2020-10-19 06:33] LABS: Hematocrit 38.5 % (42-52); Hemoglobin 12.6 g/dl (14.0-18.0); Imm Gran Abs Auto 0.08 X10*3/uL (0.00-0.03); Imm Gran Pct Auto 0.6 % (0.0-0.4); Lymphocytes Absolute Auto 0.7 X10*3/uL (1.2-4.9); Lymphocytes Percent Auto 5.3 % (20-40); Mean Corpuscular HGB Conc 32.7 g/dl (31.0-36.0); Mean Corpuscular Volume 94.6 fL (80-98); Mean Platelet Volume 11.3 fL (9.4-12.4); Monocytes Absolute Auto 0.7 X10*3/uL (0.1-1.2); Monocytes Percent Auto 5.7 % (2-11); Neutrophils Absolute Auto 11.1 X10*3/uL (2.0-8.3); Neutrophils Percent Auto 88.3 % (45-73); Platelet Count 141 X10*3/uL (160-400); Red Cell Distribution Width 13.3 % (11.0-16.0); White Blood Count 12.5 X10*3/uL (4.8-10.8)
[2020-10-19 06:52] LABS: Anion Gap 16 (12-20); Blood Urea Nitrogen 37 mg/dL (9-16); Calcium 8.7 mg/dL (8.4-10.2); Carbon Dioxide 30 mmol/L (22-29); Chloride 101 mmol/L (96-108); Creatinine Clr Calc Pharmacy 42.3; Estimated Glomerular Filt Rate 48; Glucose Random 118 mg/dL (60-115); Potassium 3.6 mmol/L (3.3-5.1); Sodium 143 mmol/L (135-145)
[2020-10-19 06:55] LABS: SLIDE REVIEW VERIFIED
[2020-10-19] MEDS: oxyCODONE HCl Immed Release 5 MG TABLET PO ×2 (09:15→16:43)
[2020-10-19] MEDS: Metoprolol Tartrate 25 MG TABLET PO ×2 (09:16→20:07)
[2020-10-19] MEDS: Digoxin 0.125 MG TABLET PO (09:16)
[2020-10-19] MEDS: Docusate Sodium 100 MG CAPSULE PO (09:16)
[2020-10-19] MEDS: Amiodarone HCL 200 MG TABLET PO (09:16)
--- NOTE | 2020-10-19 11:06 | P.PNIM_ITS ---
Subjective Subjective Date of Service: 10/19/20 <NELSON Rebollar - Last Filed: 10/19/20 11:11> 10/19/20 <Kylah Bauer MD - Last Filed: 10/19/20 12:14> Interval History: seen and examined this morning follow up for left hip fracure, LAUREN, rhabdo no overnight events. no complaints this morning. <NELSON Rebollar - Last Filed: 10/19/20 11:11> Review of Systems Review of Systems: Yes all other systems are reviewed and are negative <NELSON Rebollar - Last Filed: 10/19/20 11:11> Constitutional Constitutional: Denies chills and Denies fever(s) <NELSON Rebollar - Last Filed: 10/19/20 11:11> Cardiovascular Cardiovascular: Denies chest pain <NELSON Rebollar - Last Filed: 10/19/20 11:11> Respiratory Respiratory: Denies cough <NELSON Rebollar - Last Filed: 10/19/20 11:11> Gastrointestinal Gastrointestinal: Denies abdominal pain <NELSON Rebollar - Last Filed: 10/19/20 11:11> Physical Exam Vital Signs: Vital Signs: Last Vital Signs Temp 98.1 F 10/19/20 08:00 Pulse 66 10/19/20 08:00 Resp 18 10/19/20 08:00 BP 130/71 10/19/20 08:00 Pulse Ox 97 10/19/20 08:00 Body Mass Index 24.4 <NELSON Rebollar - Last Filed: 10/19/20 11:11> Const: General: comfortable, no acute distress, alert and awake <NELSON Rebollar - Last Filed: 10/19/20 11:11> Nutritional Appearance: well nourished <NELSON Rebollar - Last Filed: 10/19/20 11:11> Orientation/consciousness: oriented to person and oriented to place <NELSON Rebollar Last Filed: 10/19/20 11:11> HENMT: Head: Yes normocephalic and Yes atraumatic <NELSON Rebollar - Last Filed: 10/19/20 11:11> Eyes: Sclerae: sclerae normal <NELSON Reblolar Last Filed: 10/19/20 11:11> Chest: Chest palpation & inspection: normal inspection of the chest <NELSON Rebollar Last Filed: 10/19/20 11:11> Resp: Effort & Inspection: normal respiratory effort and no respiratory distress <NELSON Rebollar - Last Filed: 10/19/20 11:11> Auscultation: clear to auscultation bilaterally <NELSON Rebollar - Last Filed: 10/19/20 11:11> Cardio: Rate: regular rate <NELSON Rebollar - Last Filed: 10/19/20 11:11> Rhythm: regular rhythm <NELSON Rebollar - Last Filed: 10/19/20 11:11> GI: Palpation (GI): Soft to palpation and nontender <NELSON Rebollar - Last Filed: 10/19/20 11:11> Skin: Other: <ENLSON Rebollar - Last Filed: 10/19/20 11:11> Neuro: General: oriented to person and oriented to place <NELSON Rebollar - Last Filed: 10/19/20 11:11> Cranial nerves: Yes CN's II-XII intact bilaterally and Yes Bilaterally intact EOM present <NELSON Rebollar - Last Filed: 10/19/20 11:11> Extrem: Other: left leg ER and shortened; chronic skin changes as above; left leg edema <NELSON Rebollar - Last Filed: 10/19/20 11:11> Objective Data Current Medications Generic Name Dose Route Start Last Admin Trade Name Freq PRN Reason Stop Dose Admin Acetaminophen 650 mg 10/18/20 15:44 Acetaminophen 325 Mg Tablet PO Q6H PRN Pain, Mild (Pain Scale 1-3) Amiodarone HCl 200 mg 10/19/20 09:00 10/19/20 09:16 Amiodarone Hcl 200 Mg Tablet PO 200 mg DAILY KEAGAN Administration Digoxin 0.125 mg 10/19/20 09:00 10/19/20 09:16 Digoxin 0.125 Mg Tablet PO 0.125 mg DAILY KEAGAN Administration Docusate Sodium 100 mg 10/19/20 09:00 10/19/20 09:16 Docusate Sodium 100 Mg Capsule PO 100 mg DAILY KEAGAN Administration Lactated Ringer's 1,000 mls @ 50 mls/hr 10/18/20 15:47 10/18/20 16:11 Lr IVCONT 10/19/20 11:46 50 mls/hr .Q20H ONE Administration Metoprolol Tartrate 25 mg 10/18/20 21:00 10/19/20 09:16 Metoprolol Tartrate 25 Mg Tablet PO 25 mg BID KEAGAN Administration Protocol Morphine Sulfate 2 mg 10/18/20 15:44 Morphine Sulfate 4 Mg/Ml Cartridge IVPUSH Q4H PRN Pain, Severe (Pain Scale 7-10) Ondansetron HCl 4 mg 10/18/20 15:44 Ondansetron Hcl 4 Mg/2 Ml Vial IVPUSH Q8H PRN Nausea and Vomiting Oxycodone HCl 5 mg 10/18/20 15:44 10/19/20 09:15 Oxycodone Hcl Immed Release 5 Mg Tablet PO 5 mg Q6H PRN Administration Pain, Moderate (Pain Scale 4-6 Senna 17.2 mg 10/18/20 21:00 10/18/20 21:16 Sennosides 8.6 Mg Tablet PO 17.2 mg BEDTIME KEAGAN Administration Sodium Chloride 3 ml 10/18/20 16:00 10/19/20 09:16 0.9 % Sodium Chloride Flush 3 Ml Syringe IVFLUSH Not Given QSHIFT KEAGAN <NELSON Rebollar - Last Filed: 10/19/20 11:11> Labs CBC & Chem 7: : 10/19/20 05:16 10/19/20 05:16 <NELSON Rebollar - Last Filed: 10/19/20 11:11> Labs: Laboratory Results - last 24 hr 10/18/20 10/18/20 10/18/20 11:38 11:38 11:38 WBC RBC Hgb Hct MCV MCH MCHC RDW Plt Count MPV Immature Gran % (Auto) Neut % (Auto) Lymph % (Auto) [place] % (Auto) Eos % (Auto) Baso % (Auto) Lymph # (Auto) [place] # (Auto) Eos # (Auto) Baso # (Auto) Abs Immat Gran (auto) Absolute Neuts (auto) Absolute Nucleated RBC Nucleated RBC % (auto) Smear Tech's Comments PT INR Sodium Potassium Chloride Carbon Dioxide Anion Gap BUN Creatinine Estim Creat Clear Calc Estimated GFR Random Glucose Lactic Acid 4.0 H* Lactic Acid Fup @ 2Hr Calcium Magnesium Total Bilirubin AST ALT Alkaline Phosphatase Total Creatine Kinase Troponin I High Sens 41.9 H* B-Natriuretic Peptide 659 H Total Protein Albumin Urine Color Urine Appearance Urine pH Ur Specific [place] Urine Protein Urine Glucose (UA) Urine Ketones Urine Blood Urine Nitrite Ur Leukocyte Esterase Urine RBC Urine WBC Ur Squamous Epith Cells Urine Bacteria COVID-19 (KAMAR) Negative COVID-19 Clin Com See Note 10/18/20 10/18/20 10/18/20 11:39 11:39 12:54 WBC 13.6 H RBC 4.60 Hgb 14.3 Hct 44.2 MCV 96.1 MCH 31.1 MCHC 32.4 RDW 13.7 Plt Count 165 MPV 10.8 Immature Gran % (Auto) 0.4 Neut % (Auto) 88.3 H Lymph % (Auto) 3.2 L [place] % (Auto) 8.0 Eos % (Auto) 0.0 Baso % (Auto) 0.1 Lymph # (Auto) 0.4 L [place] # (Auto) 1.1 Eos # (Auto) 0.0 Baso # (Auto) 0.0 Abs Immat Gran (auto) 0.06 H Absolute Neuts (auto) 12.0 H Absolute Nucleated RBC 0.000 Nucleated RBC % (auto) 0.0 Smear Tech's Comments PT 14.4 H INR 1.3 H Sodium 141 Potassium 4.7 Chloride 105 Carbon Dioxide 24 Anion Gap 17 BUN 39 H D Creatinine 1.46 H Estim Creat Clear Calc 40.6 Estimated GFR 46 Random Glucose 135 H Lactic Acid Lactic Acid Fup @ 2Hr Calcium 9.3 D Magnesium 2.1 Total Bilirubin 1.8 H AST 44 H ALT 28 Alkaline Phosphatase 60 D Total Creatine Kinase 1793 H Troponin I High Sens B-Natriuretic Peptide Total Protein 6.9 Albumin 4.0 Urine Color Urine Appearance Urine pH Ur Specific [place] Urine Protein Urine Glucose (UA) Urine Ketones Urine Blood Urine Nitrite Ur Leukocyte Esterase Urine RBC Urine WBC Ur Squamous Epith Cells Urine Bacteria COVID-19 (KAMAR) COVID-19 Clin Com 10/18/20 10/18/20 10/18/20 13:58 14:23 14:23 WBC RBC Hgb Hct MCV MCH MCHC RDW Plt Count MPV Immature Gran % (Auto) Neut % (Auto) Lymph % (Auto) [place] % (Auto) Eos % (Auto) Baso % (Auto) Lymph # (Auto) [place] # (Auto) Eos # (Auto) Baso # (Auto) Abs Immat Gran (auto) Absolute Neuts (auto) Absolute Nucleated RBC Nucleated RBC % (auto) Smear Tech's Comments PT INR Sodium Potassium Chloride Carbon Dioxide Anion Gap BUN Creatinine Estim Creat Clear Calc Estimated GFR Random Glucose Lactic Acid Lactic Acid Fup @ 2Hr 0.5 Calcium Magnesium Total Bilirubin AST ALT Alkaline Phosphatase Total Creatine Kinase Troponin I High Sens 37.1 H* B-Natriuretic Peptide Total Protein Albumin Urine Color YELLOW Urine Appearance HAZY Urine pH 6.0 Ur Specific [place] 1.025 Urine Protein 2+ H Urine Glucose (UA) NEG Urine Ketones NEG Urine Blood 2+ H Urine Nitrite NEG Ur Leukocyte Esterase NEG Urine RBC 0-2 Urine WBC 5-9 H Ur Squamous Epith Cells NONE Urine Bacteria 1+ COVID-19 (KAMAR) COVID-19 Clin Codenomicon 10/19/20 10/19/20 05:16 05:16 WBC 12.5 H RBC 4.07 L Hgb 12.6 L Hct 38.5 L MCV 94.6 MCH 31.0 MCHC 32.7 RDW 13.3 Plt Count 141 L MPV 11.3 Immature Gran % (Auto) 0.6 H Neut % (Auto) 88.3 H Lymph % (Auto) 5.3 L [place] % (Auto) 5.7 Eos % (Auto) 0.0 Baso % (Auto) 0.1 Lymph # (Auto) 0.7 L [place] # (Auto) 0.7 Eos # (Auto) 0.0 Baso # (Auto) 0.0 Abs Immat Gran (auto) 0.08 H Absolute Neuts (auto) 11.1 H Absolute Nucleated RBC 0.000 Nucleated RBC % (auto) 0.0 Smear Tech's Comments VERIFIED PT INR Sodium 143 Potassium 3.6 D Chloride 101 Carbon Dioxide 30 H Anion Gap 16 BUN 37 H Creatinine 1.40 Estim Creat Clear Calc 42.3 Estimated GFR 48 Random Glucose 118 H Lactic Acid Lactic Acid Fup @ 2Hr Calcium 8.7 D Magnesium Total Bilirubin AST ALT Alkaline Phosphatase Total Creatine Kinase 830 H D Troponin I High Sens B-Natriuretic Peptide Total Protein Albumin Urine Color Urine Appearance Urine pH Ur Specific [place] Urine Protein Urine Glucose (UA) Urine Ketones Urine Blood Urine Nitrite Ur Leukocyte Esterase Urine RBC Urine WBC Ur Squamous Epith Cells Urine Bacteria COVID-19 (KAMAR) COVID-19 Clin Com <NELSON Rebollar - Last Filed: 10/19/20 11:11> Quality Stroke Does the patient have a stroke diagnosis?: No <NELSON Rebollar - Last Filed: 10/19/20 11:11> VTE Prior VTE?: No <NELSON Rebollar - Last Filed: 10/19/20 11:11> VTE Risk Level:: Medical - moderate - high <NELSON Rebollar - Last Filed: 10/19/20 11:11> VTE Device Contraindication: N/A - Device Ordered <NELSON Rebollar - Last Filed: 10/19/20 11:11> VTE Drug Contraindication: Treatment Not Indicated <NELSON Rebollar - Last Filed: 10/19/20 11:11> Assessment and Plan (1) Fracture of femoral neck, left: Status: Acute <NELSON Rebollar - Last Filed: 10/19/20 11:11> (2) Acute kidney injury superimposed on chronic kidney disease: Status: Acute <NELSON Rebollar - Last Filed: 10/19/20 11:11> Assessment and Plan: This is an 85-year-old male with a history cardiomyopathy, atrial fibrillation on Eliquis, hypertension brought to the emergency department after a fall found to have left hip fracture, lactic acidosis, LAUREN, elevated CPK Left femoral neck fracture According to family member meds for this morning and last night still in pill box. Last dose of Eliquis presumed to be morning of 10/17 Pain well controlled -management per Orthopedic Service, plan for surgery Tuesday or Tuesday -echocardiogram, cardiology for preoperative evaluation -pain management -bowel regimen Rhabdo CPK down from 1793 to 830 today -gentle IVF given underlying CHF with low LFEF LAUREN Creatinine trending down -gentle IVF as above -follow BMP Elevated toponin No chest pain, no acute ischemic changes on EKG Likely stress related from fall/fracture -cardiology consult for pre-op evaluation SIRS Pt meets criteria with RR 24, WBC 13.6 Lactic acid elevated at 4 on arrival now resolved Leukocytosis appears to be in part chronic in nature CXR, UA negative Empiric abx given in ED No evidence of infection/sepsis. Reactive in setting of fall/hip fracture. -follow CBC -Blood cultures pending Atrial fibrillation HR has been controlled. 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 Bauer Dispo: STR when medically ready <NELSON Rebollar - Last Filed: 10/19/20 11:11>
--- NOTE | 2020-10-19 12:00 | PM.CNCAR ---
History of Present Illness History of Present Illness Date of Service: 10/19/20 Requesting physician: Kat Traore Chief complaint: left hip fracture ,sam Narrative: 85-year-old gentleman who is known to our practice for cardiomyopathy. 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 He was on digoxin, metoprolol and amiodarone 200 mg once a day. As of June 2020 he had Holter monitoring done which showed AFib. He has been on Eliquis previously for anticoagulation and stroke prevention. He is presenting with mechanical fall. He said he was going up stairs when he tripped and unfortunately fell and had left neck of femur fracture. He is saying he is not in a lot of pain right now. He is denying any shortness of breath. Denies orthopnea or PND at home. 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 No chest pain. We have been asked to assess her perioperative cardiovascular risk. Review of Systems Review of Systems: No chest pain or shortness of breath. Yes all other systems are reviewed and are negative [facility] Past Medical History Medical History (Updated 10/19/20 @ 12:04 by Cortes Adhikari MD) Cardiomyopathy, unspecified CHF (congestive heart failure) HTN (hypertension) HTN (hypertension) Persistent atrial fibrillation Functional capacity: independent ambulation Family History Family History Father No problems noted. Mother No problems noted. Surgical History Surgical History (Updated 10/18/20 @ 15:57 by NELSON Rebollar) Hx of appendectomy Social History Social History Household Members: None Housing: House Do you presently have visiting nurse or other home services: No Alcohol intake: never Patient Tobacco Use Status: Never used Tobacco Use of substances other than those prescribed or required for medical reasons: No Currently Displaying Signs/Symptoms of Drug Intoxication Withdrawal: No Have you been hit, kicked, punched, or otherwise hurt by someone within the past year? If so, by whom?: No Is there a partner from a previous relationship who is making you feel unsafe now?: No Are you made to feel afraid or neglected: No Advance Directives: Yes Advance Directives on File: Yes Advance Directives Date on File: 04/29/20 Do you have thoughts of harming others: None Do you have a plan to hurt others: No Plan Recently lost weight without trying: Unsure Nutrition Risks: No Nutritional Risk Poor oral hygiene: No service: Yes Current occupational status: retired Meds Allergies Allergy/AdvReac Type Severity Reaction Status Date / Time streptomycin [Streptomycin] Allergy Mild UNKNOWN Verified 03/19/20 14:05 Penicillins Allergy Unknown unk Verified 03/19/20 14:05 Sulfa (Sulfonamide Allergy Unknown UNKNOWN Verified 05/29/20 14:24 Antibiotics) [SULFA (SULFONAMIDE ANTIBIOTICS)] Active Medications: Current Medications Generic Name Dose Route Start Last Admin Trade Name Freq PRN Reason Stop Dose Admin Acetaminophen 650 mg 10/18/20 15:44 Acetaminophen 325 Mg Tablet PO Q6H PRN Pain, Mild (Pain Scale 1-3) Amiodarone HCl 200 mg 10/19/20 09:00 10/19/20 09:16 Amiodarone Hcl 200 Mg Tablet PO 200 mg DAILY KEAGAN Administration Docusate Sodium 100 mg 10/19/20 09:00 10/19/20 09:16 Docusate Sodium 100 Mg Capsule PO 100 mg DAILY KEAGAN Administration Metoprolol Tartrate 25 mg 10/18/20 21:00 10/19/20 09:16 Metoprolol Tartrate 25 Mg Tablet PO 25 mg BID KEAGAN Administration Protocol Morphine Sulfate 2 mg 10/18/20 15:44 Morphine Sulfate 4 Mg/Ml Cartridge IVPUSH Q4H PRN Pain, Severe (Pain Scale 7-10) Ondansetron HCl 4 mg 10/18/20 15:44 Ondansetron Hcl 4 Mg/2 Ml Vial IVPUSH Q8H PRN Nausea and Vomiting Oxycodone HCl 5 mg 10/18/20 15:44 10/19/20 09:15 Oxycodone Hcl Immed Release 5 Mg Tablet PO 5 mg Q6H PRN Administration Pain, Moderate (Pain Scale 4-6 Senna 17.2 mg 10/18/20 21:00 10/18/20 21:16 Sennosides 8.6 Mg Tablet PO 17.2 mg BEDTIME KEAGAN Administration Sodium Chloride 3 ml 10/18/20 16:00 10/19/20 09:16 0.9 % Sodium Chloride Flush 3 Ml Syringe IVFLUSH Not Given QSHIFT [facility] Home Medications Medication Instructions Recorded Confirmed Last Taken Type furosemide 40 mg tablet 20 mg PO DAILY 01/17/20 10/18/20 Unknown History metoprolol tartrate 1 tab PO BID 10/18/20 10/18/20 Unknown History potassium chloride 1 tab PO DAILY 10/18/20 10/18/20 Unknown History Physical Exam Vital Signs: Vital Signs: Last Vital Signs Temp 98.1 F 10/19/20 08:00 Pulse 66 10/19/20 08:00 Resp 18 10/19/20 08:00 BP 130/71 10/19/20 08:00 Pulse Ox 97 10/19/20 08:00 Body Mass Index 24.4 GENERAL APPEARANCE: in no acute distress. NECK: no carotid bruit, no jugular venous distention. SKIN: no suspicious lesions, warm and dry. HEART: no murmurs, regular rate and rhythm. LUNGS: clear to auscultation bilaterally. ABDOMEN: soft, nontender. EXTREMITIES: no edema. PERIPHERAL PULSES: equal. NEUROLOGIC: No gross deficits, AAO X 3 Results Labs and Meds Result diagrams: 10/19/20 05:16 10/19/20 05:16 Lab results: Laboratory Results - last 24 hr 10/18/20 10/18/20 10/18/20 11:38 11:38 11:38 WBC RBC Hgb Hct MCV MCH MCHC RDW Plt Count MPV Immature Gran % (Auto) Neut % (Auto) Lymph % (Auto) [place] % (Auto) Eos % (Auto) Baso % (Auto) Lymph # (Auto) [place] # (Auto) Eos # (Auto) Baso # (Auto) Abs Immat Gran (auto) Absolute Neuts (auto) Absolute Nucleated RBC Nucleated RBC % (auto) Smear Tech's Comments PT INR Sodium Potassium Chloride Carbon Dioxide Anion Gap BUN Creatinine Estim Creat Clear Calc Estimated GFR Random Glucose Lactic Acid 4.0 H* Lactic Acid Fup @ 2Hr Calcium Magnesium Total Bilirubin AST ALT Alkaline Phosphatase Total Creatine Kinase Troponin I High Sens 41.9 H* B-Natriuretic Peptide 659 H Total Protein Albumin Urine Color Urine Appearance Urine pH Ur Specific [place] Urine Protein Urine Glucose (UA) Urine Ketones Urine Blood Urine Nitrite Ur Leukocyte Esterase Urine RBC Urine WBC Ur Squamous Epith Cells Urine Bacteria COVID-19 (KAMAR) Negative COVID-19 Clin Com See Note 10/18/20 10/18/20 10/18/20 11:39 12:54 13:58 WBC RBC Hgb Hct MCV MCH MCHC RDW Plt Count MPV Immature Gran % (Auto) Neut % (Auto) Lymph % (Auto) [place] % (Auto) Eos % (Auto) Baso % (Auto) Lymph # (Auto) [place] # (Auto) Eos # (Auto) Baso # (Auto) Abs Immat Gran (auto) Absolute Neuts (auto) Absolute Nucleated RBC Nucleated RBC % (auto) Smear Tech's Comments PT 14.4 H INR 1.3 H Sodium 141 Potassium 4.7 Chloride 105 Carbon Dioxide 24 Anion Gap 17 BUN 39 H D Creatinine 1.46 H Estim Creat Clear Calc 40.6 Estimated GFR 46 Random Glucose 135 H Lactic Acid Lactic Acid Fup @ 2Hr Calcium 9.3 D Magnesium 2.1 Total Bilirubin 1.8 H AST 44 H ALT 28 Alkaline Phosphatase 60 D Total Creatine Kinase 1793 H Troponin I High Sens B-Natriuretic Peptide Total Protein 6.9 Albumin 4.0 Urine Color YELLOW Urine Appearance HAZY Urine pH 6.0 Ur Specific [place] 1.025 Urine Protein 2+ H Urine Glucose (UA) NEG Urine Ketones NEG Urine Blood 2+ H Urine Nitrite NEG Ur Leukocyte Esterase NEG Urine RBC 0-2 Urine WBC 5-9 H Ur Squamous Epith Cells NONE Urine Bacteria 1+ COVID-19 (KAMAR) COVID-19 Clin Com 10/18/20 10/18/20 10/19/20 14:23 14:23 05:16 WBC 12.5 H RBC 4.07 L Hgb 12.6 L Hct 38.5 L MCV 94.6 MCH 31.0 MCHC 32.7 RDW 13.3 Plt Count 141 L MPV 11.3 Immature Gran % (Auto) 0.6 H Neut % (Auto) 88.3 H Lymph % (Auto) 5.3 L [place] % (Auto) 5.7 Eos % (Auto) 0.0 Baso % (Auto) 0.1 Lymph # (Auto) 0.7 L [place] # (Auto) 0.7 Eos # (Auto) 0.0 Baso # (Auto) 0.0 Abs Immat Gran (auto) 0.08 H Absolute Neuts (auto) 11.1 H Absolute Nucleated RBC 0.000 Nucleated RBC % (auto) 0.0 Smear Tech's Comments VERIFIED PT INR Sodium Potassium Chloride Carbon Dioxide Anion Gap BUN Creatinine Estim Creat Clear Calc Estimated GFR Random Glucose Lactic Acid Lactic Acid Fup @ 2Hr 0.5 Calcium Magnesium Total Bilirubin AST ALT Alkaline Phosphatase Total Creatine Kinase Troponin I High Sens 37.1 H* B-Natriuretic Peptide Total Protein Albumin Urine Color Urine Appearance Urine pH Ur Specific [place] Urine Protein Urine Glucose (UA) Urine Ketones Urine Blood Urine Nitrite Ur Leukocyte Esterase Urine RBC Urine WBC Ur Squamous Epith Cells Urine Bacteria COVID-19 (KAMAR) COVID-19 [employer] Com 10/19/20 05:16 WBC RBC Hgb Hct MCV MCH MCHC RDW Plt Count MPV Immature Gran % (Auto) Neut % (Auto) Lymph % (Auto) [place] % (Auto) Eos % (Auto) Baso % (Auto) Lymph # (Auto) [place] # (Auto) Eos # (Auto) Baso # (Auto) Abs Immat Gran (auto) Absolute Neuts (auto) Absolute Nucleated RBC Nucleated RBC % (auto) Smear Tech's Comments PT INR Sodium 143 Potassium 3.6 D Chloride 101 Carbon Dioxide 30 H Anion Gap 16 BUN 37 H Creatinine 1.40 Estim Creat Clear Calc 42.3 Estimated GFR 48 Random Glucose 118 H Lactic Acid Lactic Acid Fup @ 2Hr Calcium 8.7 D Magnesium Total Bilirubin AST ALT Alkaline Phosphatase Total Creatine Kinase 830 H D Troponin I High Sens B-Natriuretic Peptide Total Protein Albumin Urine Color Urine Appearance Urine pH Ur Specific [place] Urine Protein Urine Glucose (UA) Urine Ketones Urine Blood Urine Nitrite Ur Leukocyte Esterase Urine RBC Urine WBC Ur Squamous Epith Cells Urine Bacteria COVID-19 (KAMAR) COVID-19 Clin Com Imaging Radiologist's impression: Impressions Cervical Spine CT 10/18/20 11:18 IMPRESSION: No acute intracranial pathology. No cervical spine fracture or malalignment. Cervical spondylosis as described. Chest X-Ray 10/18/20 11:18 IMPRESSION: Left femoral neck fracture. No dislocation. Unremarkable chest exam. Head CT 10/18/20 11:18 IMPRESSION: No acute intracranial pathology. No cervical spine fracture or malalignment. Cervical spondylosis as described. Hip CT 10/18/20 11:19 IMPRESSION: There is an angulated and displaced LEFT transcervical femoral fracture as described. No dislocation. Femoral head is intact. Hip/Pelvis X-Ray 10/18/20 11:19 IMPRESSION: Left femoral neck fracture. No dislocation. Unremarkable chest exam. Assessment and Plan (1) Fracture of femoral neck, left: Status: Acute (2) Cardiomyopathy: Status: Acute (3) PAF (paroxysmal atrial fibrillation): Status: Acute (4) Preop cardiovascular exam: Status: Acute 85-year-old gentleman with background of paroxysmal atrial fibrillation and cardiomyopathy who is presenting with mechanical fall and neck of femur fracture. We have been asked to assess his cardiovascular risk. Clinically not in heart failure right now. Also had been persistent atrial fibrillation but interestingly on this admission he is back in sinus rhythm. Telemetry is also showing sinus rhythm at this point. No anginal symptoms. I think he is intermediate risk for perioperative cardiovascular complications. Please discontinue the digoxin. He can continue the amiodarone and metoprolol. Agree with repeating echocardiogram tomorrow to reassess his ejection fraction. He does not need to wait for the echocardiogram to go to operating room if required. Resume Eliquis after surgery once orthopedic team is comfortable. Thank you for allowing me to participate in the care of your patient. Please feel free to contact me if you have any questions. Procedures Date of Service Date of Service: 10/19/20
--- NOTE | 2020-10-19 15:21 | MHC.CM.PN ---
Addendum entered by Amber Ochoa 10/19/20 15:32: PER CONVERSATION WITH PARIS (COUSIN [phone]), [facility] IS NOT [facility]. SHE DOES NOT REMEMBER THE NAME OF THE AGENCY, BUT IS IN CONTACT WITH THE NURSES AND WILL UPDATE CM ONCE SHE FINDS THE BUSINESS CARD. PATIENT ALSO HAS [facility] 4 DAYS EACH WEEK (MORNINGS) FOR HOME CARE, MEDICATION REMINDING, AND CLEANING) PARIS HAS INFORMED THE AGENCY OF PATIENT ADMISSION. PARIS SAYS THAT STAFF CAN CALL AT ANYTIME. SHE ALSO STATES TO LEAVE A MESSAGE ON THE MACHINE IF NO ONE ANSWERS. PATIENT RECEIVED ONLY HIS FIRST DOSE OF [employer] COVID VACCINE DURING A STAY AT [facility]. HE STILL NEEDS HIS SECOND DOSE. PARIS TELLS THIS GRAIN SPOUTER THAT ONCE PATIENT COMPLETES REHAB, THE FAMILY HAS DECIDED TO SECURE HALFWAY PLACEMENT FOR THE PATIENT, AND REPORTS THAT HE IS ABLE TO FINANCE THIS THEY MAY CONTINUE THE SEARCH IN [facility], THIS IS THE FAMILY'S FIRST CHOICE FOR LTC. JANIS AT [facility] AND [facility] ARE FOLLOWING. HCP AND FAMILY ARE IN AGREEMENT WITH EITHER LOCATION Original Note: PATIENT LIVES ALONE. HE HAS A COUSIN THAT LIVES NEXT DOOR (ACCORDING TO PATIENT) WHO CHECKS IN ON HOME AND TAKES HIM TO HIS APPOINTMENTS. HCP IS ON FILE, NAMING TWO COUSINS, BERNADINE AND KASSIE. PATIENT HAS A CANE AND A WALKER, BUT STATES I DON'T REALLY USE THEM . HE DOES REPORT THAT A NURSE CHECKS ON HIM ONCE A WEEK AND HE BELIEVES IT IS [facility]. (REFERRAL PLACED TO INQUIRE, PATIENT REPORTED JAVIER MORAN). HE IS AWARE THAT CASE MANAGEMENT IS PLACING REFERRALS TO REHAB FACILITIES, AND AGREES FOR REFERRALS TO CONTRACTED REHABS. HE IS ALSO AWARE THAT THIS GRAIN SPOUTER WILL VERIFY INFORMATION AND SNF REFERRALS WITH FAMILY IMM 10/19 IN CHART
[2020-10-19] MEDS: 0.9 % Sodium Chloride Flush 3 ML SYRINGE IVFLUSH ×2 (16:36→23:41)
[2020-10-19] MEDS: Acetaminophen 325 MG TABLET 650 MG PO (20:08)
[2020-10-19] MEDS: Sennosides 8.6 MG TABLET 17.2 MG PO (20:08)
[2020-10-20 03:36] VITALS: BP 122/60; PULSE 58; RESP 16; TEMP 36.6; O2SAT 95
[2020-10-20 06:19] LABS: Hemoglobin 12.1 g/dl (14.0-18.0); Mean Corpuscular HGB Conc 32.7 g/dl (31.0-36.0); PLT CLUMP 1
[2020-10-20 06:21] LABS: Mean Corpuscular Hemoglobin 31.2 pg (27.0-33.0); Mean Corpuscular Volume 95.4 fL (80-98); Platelet Count 131 X10*3/uL (160-400); Red Blood Count 3.88 X10*6/uL (4.60-5.80); Red Cell Distribution Width 13.4 % (11.0-16.0); White Blood Count 8.9 X10*3/uL (4.8-10.8)
[2020-10-20 06:32] LABS: Anion Gap 10 (12-20); Blood Urea Nitrogen 36 mg/dL (9-16); Calcium 8.4 mg/dL (8.4-10.2); Carbon Dioxide 34 mmol/L (22-29); Chloride 99 mmol/L (96-108); Creatinine Clr Calc Pharmacy 50.2; Estimated Glomerular Filt Rate 59; Glucose Random 114 mg/dL (60-115); Sodium 139 mmol/L (135-145)
[2020-10-20] MEDS: oxyCODONE HCl Immed Release 5 MG TABLET PO (07:58)
[2020-10-20] MEDS: Metoprolol Tartrate 25 MG TABLET PO ×2 (07:58→21:00)
[2020-10-20] MEDS: Amiodarone HCL 200 MG TABLET PO (07:58)
[2020-10-20] MEDS: 0.9 % Sodium Chloride Flush 3 ML SYRINGE IVFLUSH ×2 (07:58→17:45)
[2020-10-20 08:00] VITALS: BP 149/67; PULSE 61; RESP 16; TEMP 36.9; O2SAT 94
--- NOTE | 2020-10-20 09:55 | PM.EVENT ---
Event Note Date of Service: 10/20/20 Event Note: Planning for surgery tomorrow for left hip carlee with Dr. Gibbons as it is unclear when the last dose of Eliquis was.
--- NOTE | 2020-10-20 11:35 | P.PNIM_ITS ---
Subjective Subjective Date of Service: 10/20/20 Interval History: Patient resting comfortably complaining of left hip pain only with movement otherwise denies any acute issues, has been kept NPO for possible surgery today. 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 Neck supple, no JVD. CVS regular rate rhythm, Respiratory lungs clear to auscultation, no respiratory distress, no wheeze, no rhonchi. Gastrointestinal abdomen soft, nontender, bowel sounds audible, no guarding , no rigidity. Extremities right lower extremity no edema, left lower extremity edematous, externally rotated, with chronic venous discoloration. Neuro nonfocal . Skin no rash Objective Data Current Medications Generic Name Dose Route Start Last Admin Trade Name Freq PRN Reason Stop Dose Admin Acetaminophen 650 mg 10/18/20 15:44 10/19/20 20:08 Acetaminophen 325 Mg Tablet PO 650 mg Q6H PRN Administration Pain, Mild (Pain Scale 1-3) Amiodarone HCl 200 mg 10/19/20 09:00 10/20/20 07:58 Amiodarone Hcl 200 Mg Tablet PO 200 mg DAILY KEAGAN Administration Docusate Sodium 100 mg 10/19/20 09:00 10/20/20 07:58 Docusate Sodium 100 Mg Capsule PO Not Given DAILY KEAGAN Cefazolin Sodium/Dextrose 2 gm in 50 mls @ 100 mls/hr 10/20/20 12:00 Ancef IV 10/20/20 12:29 PREOP ONE Metoprolol Tartrate 25 mg 10/18/20 21:00 10/20/20 07:58 Metoprolol Tartrate 25 Mg Tablet PO 25 mg BID KEAGAN Administration Protocol Morphine Sulfate 2 mg 10/18/20 15:44 Morphine Sulfate 4 Mg/Ml Cartridge IVPUSH Q4H PRN Pain, Severe (Pain Scale 7-10) Ondansetron HCl 4 mg 10/18/20 15:44 Ondansetron Hcl 4 Mg/2 Ml Vial IVPUSH Q8H PRN Nausea and Vomiting Oxycodone HCl 5 mg 10/18/20 15:44 10/20/20 07:58 Oxycodone Hcl Immed Release 5 Mg Tablet PO 5 mg Q6H PRN Administration Pain, Moderate (Pain Scale 4-6 Senna 17.2 mg 10/18/20 21:00 10/19/20 20:08 Sennosides 8.6 Mg Tablet PO 17.2 mg BEDTIME KEAGAN Administration Sodium Chloride 3 ml 10/18/20 16:00 10/20/20 07:58 0.9 % Sodium Chloride Flush 3 Ml Syringe IVFLUSH 3 ml QSHIFT KEAGAN Administration Labs CBC & Chem 7: 10/20/20 05:43 10/20/20 05:43 Labs: Laboratory Results - last 24 hr 10/20/20 10/20/20 05:43 05:43 WBC 8.9 RBC 3.88 L Hgb 12.1 L Hct 37.0 L MCV 95.4 MCH 31.2 MCHC 32.7 RDW 13.4 Plt Count 131 L MPV 11.0 Absolute Nucleated RBC 0.000 Nucleated RBC % (auto) 0.0 Sodium 139 Potassium 4.0 Chloride 99 Carbon Dioxide 34 H Anion Gap 10 L BUN 36 H Creatinine 1.18 Estim Creat Clear Calc 50.2 Estimated GFR 59 Random Glucose 114 Calcium 8.4 Microbiology Microbiology Results: Microbiology 10/18/20 00:00 Urine Culture - Final Urine clean catch - Urine solo top 10/18/20 11:43 Blood Culture - Preliminary Blood - Venous No growth after 24 hours. 10/18/20 11:38 Blood Culture - Preliminary Blood - Venous No growth after 24 hours. Quality Stroke Does the patient have a stroke diagnosis?: No VTE Prior VTE?: No VTE Risk Level:: Medical - moderate - high VTE Device Contraindication: N/A - Device Ordered VTE Drug Contraindication: Treatment Not Indicated Assessment and Plan (1) Rhabdomyolysis: Status: Acute (2) Acute kidney injury superimposed on chronic kidney disease: Status: Acute (3) Fracture of femoral neck, left: Status: Acute (4) PAF (paroxysmal atrial fibrillation): Status: Acute (5) Cardiomyopathy: Status: Acute Assessment and Plan: 85-year-old male with a history cardiomyopathy, atrial fibrillation on Eliquis, hypertension brought to the emergency department after a fall found to have left hip fracture, lactic acidosis, LAUREN, elevated CPK Left femoral neck fracture Due to mechanical fall unknown time of fall, pain well controlled Last dose of Eliquis presumed to be morning of 10/17 Orthopedic Service, decided to proceed with surgery tomorrow since not exactly aware of last Eliquis dose Patient seen by Cardiology they recommended to proceed with surgery with no reservations patient is intermediate risk for perioperative cardiovascular complications echocardiogram, ordered , patient has 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 Reactive in setting of fall/hip fracture. Blood cultures no growth in last 24 hours Atrial fibrillation In normal sinus rhythm, HR has been controlled,continue amiodarone,and metoprolol, digoxin discontinued as per Cardiology Hold Eliquis due to plan for surgery HFrEF EF 15-20% hold lasix for LAUREN,monitor fluid status closely, continue BB DVT ppx - boots; eliquis on hold for surgery Code status - MOLST on file DNR/DNI
[2020-10-20 12:00] VITALS: BP 146/67; PULSE 93; RESP 16; TEMP 36.9; O2SAT 97
[2020-10-20 15:22] VITALS: BMI 24.4
--- NOTE | 2020-10-20 15:36 | MHC.CLN ---
NUTRITION CONSULT SEE NUTRITION ASSESSMENT. MULTIPLE STAGE II WOUNDS. ADD ENSURE 240 ML TID AND KIM 1 PACKET BID TO PROVIDE 1210 KCAL. 65 G PROTEIN.
--- NOTE | 2020-10-20 15:44 | CA_ITS ---
Transthoracic Echocardiogram Patient (Last, First, Middle): Radhames Daugherty M Gender: Male Date of : 1935 Age: 85 Procedure Date: 10/20/2020 Procedure Type: Transthoracic Echocardiogram Location: S3E Height: 182.88 cm Weight: 81.65 kg BSA: 2.04 m2 Heart Rate: bpm BP: 122 / 60 mmHg Customer Care Agent: CHEMO Felix MD: Ericka DAMON Upholstery Department Supervisor: Kareem Amaya MD Symptoms: heart failure, pre op Study Quality: Fair ECG Rhythm: Sinus Conclusions: - 1. Low normal LV ejection fraction with pseudonormal filling pattern with LVEF of 50-55% 2. Mild aortic regurgitation stenosis 3. Mild mitral and tricuspid regurgitation 4. Moderate to severe elevation of right ventricular systolic pressure 5. No pericardial effusion Findings Left Ventricle Normal left ventricular cavity size. There is mildly increased left ventricular wall thickness. The left ventricular systolic function is low normal. The visually estimated ejection fraction is between 50-55%. Spectral Doppler is indicative of a pseudonormal filling pattern. E/E prime ratio is between 8 and 15 consistent with indeterminate filling pressures. Right Ventricle The right ventricle was not well visualized. Mildly increased right ventricular cavity size. Atria The left atrium is likely dilated. Interatrial shunt cannot be excluded. The right atrium is mildly dilated. Aortic Valve There is mild calcification of the aortic valve. There is mild aortic valve stenosis. The peak aortic gradient is 32 mmHg.The mean gradient is 15 mmHg. The aortic valve area is 1.52 cm2. There is mild aortic valve regurgitation. Mitral Valve There is mild anterior mitral leaflet thickening. There is mild mitral valve regurgitation. There is no mitral valve stenosis. Pulmonic Valve The pulmonic valve is likely normal. Tricuspid Valve Likely normal tricuspid valve structure and function. There is mild to moderate tricuspid valve regurgitation. Normal right atrial pressure. Moderate to severe pulmonary hypertension is present. Great Vessels All visible segments of the aorta are normal in size. The pulmonary artery was not well visualized. Venous The inferior vena cava is normal in size and collapses greater than 50% with inspiration. Pericardium/Pleural There is no evidence of pericardial effusion. Prior Study Comparison Changes noted compared to prior study dated: 10/15/2019. LV systolic function has improved. RV systolic pressure is elevated Measurements 2D Linear Measurements IVSd: 1.10 0.6-0.9/0.6-1.0 cm LVIDd: 4.65 3.9-5.3/4.2-5.9 cm LVIDd Index: 2.28 2.4-3.2/2.2-3.1 cm/m2 LVIDs: 3.11 2.0-3.6 cm LVPWd: 1.22 0.7-1.1 cm Ao Root: 3.70 2.1-3.5 cm LA Diam: 2.60 2.7-3.8/3.0-4.0 cm LAIDs Index: 1.27 1.5-2.3 cm/m2 LV Mass: 247.59 67-162/88-224 g LV Mass Index: 121.37 43-95/49-115 g/m2 LVOT Diam: 2.10 3.0+(-)1.3 cm 2D Systolic Function EF 4C: 50.80 >55% EF 2C: 54.00 >55% EF BiP: 54.00 >55% Mitral Valve MV Pk E: 0.48 MV PK A: 0.42 MV Decel Time: 343.00 E/A: 1.10 E'Lateral: 8.49 E'Medial: 6.09 E/E' Med: 7.80 E/E' Lat: 5.60 PHT: 101.00 MVA PHT: 2.18 Decel Bates: 1.39 Aortic Valve AoV Pk Trae: 2.82 AoV Mn Trae: 1.74 AoV VTI: 0.46 AoV Pk Grad: 32.00 Aov Mn Grad: 15.00 VIVIANE Cont.VTI: 1.52 AI Pk Trae: 4.66 AI Bates: 2.20 LVOT LVOT Pk Trae: 1.02 LVOT Mn Trae: 0.74 LVOT VTI: 0.20 LVOT Pk Grad: 4.00 LVOT Mn Grad: 2.00 LVOT Diam: 2.10 LVOT Area: 3.46 Diastolic Function MV Pk E: 0.48 MV Pk A: 0.42 E/A: 1.10 E'Medial: 6.09 E/E' Med: 7.80 E' Laterial: 8.49 E/E' Lat: 5.60 Tricuspid Valve TR Pk Trae: 3.91 TR Pk Grad: 61.00 RA Press: 3.00 RVSP: 64.00 Great Vessels Aorta Ao Root-2D: 3.70 2.0-3.7 cm Ao Arch: 2.80 Updated in Other Vendor System with Status of Final Kareem Amaya MD electronically signed on 10/20/2020 12:00:42 PM with status of Final
[2020-10-20 16:00] VITALS: BP 179/86; PULSE 74; RESP 14; TEMP 38.1; O2SAT 92
--- NOTE | 2020-10-20 17:45 | PC.NURSE ---
Skin/Wound assessment completed today. Patient has Stage 1 pressure wound on coccyx, Stage 2 pressure wounds on right heel and mid back. Also, has a hole in his right second toe nail bed. All wounds present on admission. Applied Triad to all areas. Heel and mid back covered with foam. Toe covered with gauze/tape. Patient has a left hip fracture which will be repaired soon.
[2020-10-20 19:32] VITALS: BP 149/63; PULSE 72; RESP 16; TEMP 37.6; O2SAT 91
[2020-10-20] MEDS: Sennosides 8.6 MG TABLET 17.2 MG PO (21:00)
[2020-10-20 23:17] VITALS: BP 159/71; PULSE 67; RESP 20; TEMP 36.6; O2SAT 96
[2020-10-21] VITALS (20 sets, daily range): BP systolic 130–189; BP diastolic 61–90; PULSE 63–78; RESP 14–20; TEMP 36.1–37.6; O2SAT 94–98
[2020-10-21] MEDS: 0.9 % Sodium Chloride Flush 3 ML SYRINGE IVFLUSH ×4 (00:34→23:42)
[2020-10-21] MEDS: Metoprolol Tartrate 25 MG TABLET PO ×2 (08:34→19:56)
[2020-10-21] MEDS: Amiodarone HCL 200 MG TABLET PO (08:34)
--- NOTE | 2020-10-21 09:29 | P.PNIM_ITS ---
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 CVS no chest pain, no palpitation GI no nausea, no vomiting, no diarrhea no frequency, no urgency Physical Exam Vital Signs: Vital Signs: Last Vital Signs Temp 98.0 F 10/21/20 07:54 Pulse 64 10/21/20 07:54 Resp 18 10/21/20 07:54 BP 153/62 H 10/21/20 07:54 Pulse Ox 95 10/21/20 07:54 Body Mass Index 24.4 Const: General: comfortable, no acute distress, alert and awake Nutritional Appearance: well nourished Orientation/consciousness: oriented to person and oriented to place HENMT: Head: Yes normocephalic and Yes atraumatic Eyes: Sclerae: sclerae normal Chest: Chest palpation & inspection: normal inspection of the chest Resp: Effort & Inspection: normal respiratory effort and no respiratory distress Auscultation: clear to auscultation bilaterally Cardio: Rate: regular rate Rhythm: regular rhythm GI: Palpation (GI): Soft to palpation and nontender Skin: Other: unchaged Neuro: General: oriented to person and oriented to place Cranial nerves: Yes CN's II-XII intact bilaterally and Yes Bilaterally intact EOM present Extrem: Other: left leg ER and shortened; chronic skin changes as above; left leg edema Objective Data Current Medications Generic Name Dose Route Start Last Admin Trade Name Freq PRN Reason Stop Dose Admin Acetaminophen 650 mg 10/18/20 15:44 10/19/20 20:08 Acetaminophen 325 Mg Tablet PO 650 mg Q6H PRN Administration Pain, Mild (Pain Scale 1-3) Amiodarone HCl 200 mg 10/19/20 09:00 10/21/20 08:34 Amiodarone Hcl 200 Mg Tablet PO 200 mg DAILY KEAGAN Administration Docusate Sodium 100 mg 10/19/20 09:00 10/21/20 08:29 Docusate Sodium 100 Mg Capsule PO Not Given DAILY KEAGAN Metoprolol Tartrate 25 mg 10/18/20 21:00 10/21/20 08:34 Metoprolol Tartrate 25 Mg Tablet PO 25 mg BID KEAGAN Administration Protocol Morphine Sulfate 2 mg 10/18/20 15:44 Morphine Sulfate 4 Mg/Ml Cartridge IVPUSH Q4H PRN Pain, Severe (Pain Scale 7-10) Ondansetron HCl 4 mg 10/18/20 15:44 Ondansetron Hcl 4 Mg/2 Ml Vial IVPUSH Q8H PRN Nausea and Vomiting Oxycodone HCl 5 mg 10/18/20 15:44 10/20/20 07:58 Oxycodone Hcl Immed Release 5 Mg Tablet PO 5 mg Q6H PRN Administration Pain, Moderate (Pain Scale 4-6 Senna 17.2 mg 10/18/20 21:00 10/20/20 21:00 Sennosides 8.6 Mg Tablet PO 17.2 mg BEDTIME KEAGAN Administration Sodium Chloride 3 ml 10/18/20 16:00 10/21/20 08:34 0.9 % Sodium Chloride Flush 3 Ml Syringe IVFLUSH 3 ml QSHIFT KEAGAN Administration Labs CBC & Chem 7: 10/20/20 05:43 10/20/20 05:43 Microbiology Microbiology Results: Microbiology 10/18/20 11:43 Blood Culture - Preliminary Blood - Venous No growth after 48 hours. 10/18/20 11:38 Blood Culture - Preliminary Blood - Venous No growth after 48 hours. 10/18/20 00:00 Urine Culture - Final Urine clean catch - Urine solo top Quality Stroke Does the patient have a stroke diagnosis?: No VTE Prior VTE?: No VTE Risk Level:: Medical - moderate - high VTE Device Contraindication: N/A - Device Ordered VTE Drug Contraindication: Treatment Not Indicated Assessment and Plan (1) Rhabdomyolysis: Status: Acute (2) Acute kidney injury superimposed on chronic kidney disease: Status: Acute (3) Fracture of femoral neck, left: Status: Acute (4) PAF (paroxysmal atrial fibrillation): Status: Acute (5) Cardiomyopathy: Status: Acute Assessment and Plan: 85-year-old male with a history cardiomyopathy, atrial fibrillation on Eliquis, hypertension brought to the emergency department after a fall found to have left hip fracture, lactic acidosis, LAUREN, elevated CPK Left femoral neck fracture Due to mechanical fall unknown time of fall, pain well controlled Last dose of Eliquis presumed to be morning of 10/17 Orthopedic Service will perform surgical repair today 10/21, delay due to Eliquis Preop eval by cardiology= intermediate risk echocardiogram showed EF 50 to 55%, previous history of tachycardia induced ca rdiomyopathy with EF 15-20% Rhabdo CPK down from 1793 to 830 as of 10/20 LAUREN--resolved with IVF Elevated toponin No chest pain, no acute ischemic changes on EKG,Likely stress related from fall/fracture, seen by cardiology no further change in medical management, follow echo SIRS Pt mes criteria with RR 24, WBC 13.6, Lactic acid elevated at 4 on arrival now resolved Leukocytosis resolved and seems chronic CXR, UA negative No evidence of infection/sepsis. Reactive in setting of fall/hip fracture. Blood cultures no growth in last 24 hours Atrial fibrillation In normal sinus rhythm, HR has been controlled,continue amiodarone,and metoprolol, digoxin discontinued as per Cardiology Hold Eliquis due to plan for surgery history of HFrEF from tachycardia medated cardiomyopathy, in sinus and echo is now showing EF of 50 to 55 hold Lasix d/t renal failure DVT ppx - boots; eliquis on hold for surgery Code status - MOLST on file DNR/DNI
--- NOTE | 2020-10-21 10:15 | PC.NURSE ---
called for type and screen lab draw
--- NOTE | 2020-10-21 10:19 | PC.NURSE ---
pt having difficulty speaking called to [facility] pt has had the hickups speaking and takes alittle for patient to response . pt a/ox3 dr brewster aware
--- NOTE | 2020-10-21 10:25 | PC.NURSE ---
ct ordered for stroke pt a/o delayed speech with hiccups
--- NOTE | 2020-10-21 10:28 | PC.NURSE ---
dr clements aware and dr mariscal pt to ct now
--- NOTE | 2020-10-21 10:29 | PC.NURSE ---
pupil reactive 2mm a/ox3 able to squeeze hands strength equal smile equal
--- NOTE | 2020-10-21 10:45 | PC.NURSE ---
dr ferraro here tosee patient prior to going to ct scan of the head. pt transported to ct with monitor two rn sts feels like hes having difficulties speaking
--- NOTE | 2020-10-21 10:48 | PC.NURSE ---
pt back from ct a/ox3 denies pain sts still having difficulty speaking awaiting ct results
--- NOTE | 2020-10-21 10:55 | PC.NURSE ---
bs 119
--- NOTE | 2020-10-21 10:56 | PC.NURSE ---
pt back to floor per dr santana for neuro consult
[2020-10-21 10:59] LABS: Glucose, Whole Blood 119 mg/dL (60-115)
--- NOTE | 2020-10-21 11:05 | PC.NURSE ---
pt transferred to [id number] with monitor
--- NOTE | 2020-10-21 11:15 | PC.NURSE ---
late note pt having difficulties finding words and making full sentence delayed speech on arrival to [facility]. pt sts feeling different than previous speech pt a/ox3 able to make needs known this occurred at his arrival to sss
--- NOTE | 2020-10-21 13:04 | P.CDIC_ITS ---
CDI Concurrent Query Service Date: 10/21/20 Documentation Clarification: Please clarify if you are treating a proba ble/suspected/likely or confirmed: Please specify stage of CKD (1-5) Provider Response: CKD Stage 3 PLEASE DO NOT DELETE/MODIFY EXISTING CONTENT Additional information is needed in order to code to the highest accuracy and appropriate Severity of Illness (SOI). Please clarify the information noted below in your progress notes and discharge summary. Risk Factors/Clinical Indicators/Treatments PMH of CKD BUN 39 Creatinine 1.46 Per ED Impression: LAUREN/CKD CDS: Shamika Wilkins RN [id number] Number: Please Review the information above and exercise your independent professional judgment in responding to the query. If you concur, pleas document in the PROGRESS NOTES and DISCHARGE SUMMARY. If you do not agree with the query, please document in the query above. THIS QUERY IS PART OF THE PERMANENT MEDICAL RECORD
--- NOTE | 2020-10-21 14:04 | HO.ANESPROP2 ---
[facility] Active Problems Active Problems: All Active Problems (Updated 10/20/20 @ 11:40 by Kylah Bauer MD) Rhabdomyolysis (Acute) Preop cardiovascular exam (Acute) PAF (paroxysmal atrial fibrillation) (Acute) Cardiomyopathy (Acute) Fracture of femoral neck, left (Acute) Acute kidney injury superimposed on chronic kidney disease (Acute) Acute exacerbation of CHF (congestive heart failure) (Acute) Cellulitis (Acute) Pressure sore (Acute) Candidal intertrigo (Acute) Closed left femoral fracture (Acute) Acute on chronic systolic (congestive) heart failure (Acute) UTI (urinary tract infection) (Acute) Sepsis (Acute) Chest pain (Acute) CHF exacerbation (Acute) Acute kidney injury superimposed on CKD (Acute) Atrial fibrillation (Acute) CHF (congestive heart failure) (Acute) CRF (chronic renal failure) (Acute) Screening for prostate cancer (Acute) Essential hypertension (Acute) Atrial fibrillation with RVR (Acute) CHF (congestive heart failure) (Acute) Pneumonia (Acute) Cardiomyopathy, unspecified (Acute) Persistent atrial fibrillation (Acute) Past Medical History Medical History Cardiomyopathy, unspecified CHF (congestive heart failure) HTN (hypertension) HTN (hypertension) Persistent atrial fibrillation Functional capacity: independent ambulation Family History Family History Father No problems noted. Mother No problems noted. Surgical History Surgical History Hx of appendectomy Social History Social History Household Members: None Housing: House Do you presently have visiting nurse or other home services: No Alcohol intake: never Patient Tobacco Use Status: Never used Tobacco Use of substances other than those prescribed or required for medical reasons: No Currently Displaying Signs/Symptoms of Drug Intoxication Withdrawal: No Have you been hit, kicked, punched, or otherwise hurt by someone within the past year? If so, by whom?: No Is there a partner from a previous relationship who is making you feel unsafe now?: No Are you made to feel afraid or neglected: No Are you DNR?: Yes Advance Directives: Yes Advance Directives on File: Yes Advance Directives Date on File: 04/29/20 Do you have thoughts of harming others: None Do you have a plan to hurt others: No Plan Recently lost weight without trying: Yes How much weight loss: 2-13 pounds Nutrition Risks: Difficulty swallowing Poor oral hygiene: No service: Yes Current occupational status: retired Meds Allergies Allergy/AdvReac Type Severity Reaction Status Date / Time streptomycin [Streptomycin] Allergy Mild UNKNOWN Verified 03/19/20 14:05 Penicillins Allergy Unknown unk Verified 03/19/20 14:05 Sulfa (Sulfonamide Allergy Unknown UNKNOWN Verified 05/29/20 14:24 Antibiotics) [SULFA (SULFONAMIDE ANTIBIOTICS)] Active Medications: Current Medications Generic Name Dose Route Start Last Admin Trade Name Freq PRN Reason Stop Dose Admin Acetaminophen 650 mg 10/18/20 15:44 10/19/20 20:08 Acetaminophen 325 Mg Tablet PO 650 mg Q6H PRN Administration Pain, Mild (Pain Scale 1-3) Amiodarone HCl 200 mg 10/19/20 09:00 10/21/20 08:34 Amiodarone Hcl 200 Mg Tablet PO 200 mg DAILY KEAGAN Administration Docusate Sodium 100 mg 10/19/20 09:00 10/21/20 08:29 Docusate Sodium 100 Mg Capsule PO Not Given DAILY KEAGAN Metoprolol Tartrate 25 mg 10/18/20 21:00 10/21/20 08:34 Metoprolol Tartrate 25 Mg Tablet PO 25 mg BID KEAGAN Administration Protocol Morphine Sulfate 2 mg 10/18/20 15:44 Morphine Sulfate 4 Mg/Ml Cartridge IVPUSH Q4H PRN Pain, Severe (Pain Scale 7-10) Ondansetron HCl 4 mg 10/18/20 15:44 Ondansetron Hcl 4 Mg/2 Ml Vial IVPUSH Q8H PRN Nausea and Vomiting Oxycodone HCl 5 mg 10/18/20 15:44 10/20/20 07:58 Oxycodone Hcl Immed Release 5 Mg Tablet PO 5 mg Q6H PRN Administration Pain, Moderate (Pain Scale 4-6 Senna 17.2 mg 10/18/20 21:00 10/20/20 21:00 Sennosides 8.6 Mg Tablet PO 17.2 mg BEDTIME KEAGAN Administration Sodium Chloride 3 ml 10/18/20 16:00 10/21/20 08:34 0.9 % Sodium Chloride Flush 3 Ml Syringe IVFLUSH 3 ml QSHIFT [facility] Administration Home Medications Medication Instructions Recorded Confirmed Last Taken Type furosemide 40 mg tablet 20 mg PO DAILY 01/17/20 10/18/20 Unknown History metoprolol tartrate 1 tab PO BID 10/18/20 10/18/20 Unknown History potassium chloride 1 tab PO DAILY 10/18/20 10/18/20 Unknown History Exam Exam Date and Time: October 21, 2020 1404 Height,Weight and Vital Signs: Height 6 ft Weight 81.647 kg Last Vital Signs Temp 97.0 F 10/21/20 12:00 Pulse 69 10/21/20 12:00 Resp 16 10/21/20 12:00 BP 152/67 H 10/21/20 12:00 Pulse Ox 94 10/21/20 12:00 Pertinent Lab Results Pertinent Lab Results: Laboratory Tests 10/18/20 10/18/20 10/18/20 11:38 11:38 11:38 WBC RBC Hgb Hct MCV MCH MCHC RDW Plt Count MPV Immature Gran % (Auto) Neut % (Auto) Lymph % (Auto) Mchenry % (Auto) Eos % (Auto) Baso % (Auto) Lymph # (Auto) Mchenry # (Auto) Eos # (Auto) Baso # (Auto) Abs Immat Gran (auto) Absolute Neuts (auto) Absolute Nucleated RBC Nucleated RBC % (auto) Smear Tech's Comments PT INR Sodium Potassium Chloride Carbon Dioxide Anion Gap BUN Creatinine Estim Creat Clear Calc Estimated GFR POC Glucose Random Glucose Lactic Acid 4.0 H* Lactic Acid Fup @ 2Hr Calcium Magnesium Total Bilirubin AST ALT Alkaline Phosphatase Total Creatine Kinase Troponin I High Sens 41.9 H* B-Natriuretic Peptide 659 H Total Protein Albumin Urine Color Urine Appearance Urine pH Ur Specific [place] Urine Protein Urine Glucose (UA) Urine Ketones Urine Blood Urine Nitrite Ur Leukocyte Esterase Urine RBC Urine WBC Ur Squamous Epith Cells Urine Bacteria COVID-19 (KAMAR) Negative COVID-19 Clin Com See Note Blood Type Antibody Screen 10/18/20 10/18/20 10/18/20 11:39 11:39 12:54 WBC 13.6 H RBC 4.60 Hgb 14.3 Hct 44.2 MCV 96.1 MCH 31.1 MCHC 32.4 RDW 13.7 Plt Count 165 MPV 10.8 Immature Gran % (Auto) 0.4 Neut % (Auto) 88.3 H Lymph % (Auto) 3.2 L Mchenry % (Auto) 8.0 Eos % (Auto) 0.0 Baso % (Auto) 0.1 Lymph # (Auto) 0.4 L Mchenry # (Auto) 1.1 Eos # (Auto) 0.0 Baso # (Auto) 0.0 Abs Immat Gran (auto) 0.06 H Absolute Neuts (auto) 12.0 H Absolute Nucleated RBC 0.000 Nucleated RBC % (auto) 0.0 Smear Tech's Comments PT 14.4 H INR 1.3 H Sodium 141 Potassium 4.7 Chloride 105 Carbon Dioxide 24 Anion Gap 17 BUN 39 H D Creatinine 1.46 H Estim Creat Clear Calc 40.6 Estimated GFR 46 POC Glucose Random Glucose 135 H Lactic Acid Lactic Acid Fup @ 2Hr Calcium 9.3 D Magnesium 2.1 Total Bilirubin 1.8 H AST 44 H ALT 28 Alkaline Phosphatase 60 D Total Creatine Kinase 1793 H Troponin I High Sens B-Natriuretic Peptide Total Protein 6.9 Albumin 4.0 Urine Color Urine Appearance Urine pH Ur Specific [place] Urine Protein Urine Glucose (UA) Urine Ketones Urine Blood Urine Nitrite Ur Leukocyte Esterase Urine RBC Urine WBC Ur Squamous Epith Cells Urine Bacteria COVID-19 (KAMAR) COVID-19 Clin Com Blood Type Antibody Screen 10/18/20 10/18/20 10/18/20 13:58 14:23 14:23 WBC RBC Hgb Hct MCV MCH MCHC RDW Plt Count MPV Immature Gran % (Auto) Neut % (Auto) Lymph % (Auto) [place] % (Auto) Eos % (Auto) Baso % (Auto) Lymph # (Auto) [place]hen[place] # (Auto) Eos # (Auto) Baso # (Auto) Abs Immat Gran (auto) Absolute Neuts (auto) Absolute Nucleated RBC Nucleated RBC % (auto) Smear Tech's Comments PT INR Sodium Potassium Chloride Carbon Dioxide Anion Gap BUN Creatinine Estim Creat Clear Calc Estimated GFR POC Glucose Random Glucose Lactic Acid Lactic Acid Fup @ 2Hr 0.5 Calcium Magnesium Total Bilirubin AST ALT Alkaline Phosphatase Total Creatine Kinase Troponin I High Sens 37.1 H* B-Natriuretic Peptide Total Protein Albumin Urine Color YELLOW Urine Appearance HAZY Urine pH 6.0 Ur Specific [place] 1.025 Urine Protein 2+ H Urine Glucose (UA) NEG Urine Ketones NEG Urine Blood 2+ H Urine Nitrite NEG Ur Leukocyte Esterase NEG Urine RBC 0-2 Urine WBC 5-9 H Ur Squamous Epith Cells NONE Urine Bacteria 1+ COVID-19 (KAMAR) COVID-19 Clin Com Blood Type Antibody Screen 10/19/20 10/19/20 10/20/20 05:16 05:16 05:43 WBC 12.5 H 8.9 RBC 4.07 L 3.88 L Hgb 12.6 L 12.1 L Hct 38.5 L 37.0 L MCV 94.6 95.4 MCH 31.0 31.2 MCHC 32.7 32.7 RDW 13.3 13.4 Plt Count 141 L 131 L MPV 11.3 11.0 Immature Gran % (Auto) 0.6 H Neut % (Auto) 88.3 H Lymph % (Auto) 5.3 L Mchenry % (Auto) 5.7 Eos % (Auto) 0.0 Baso % (Auto) 0.1 Lymph # (Auto) 0.7 L [place] # (Auto) 0.7 Eos # (Auto) 0.0 Baso # (Auto) 0.0 Abs Immat Gran (auto) 0.08 H Absolute Neuts (auto) 11.1 H Absolute Nucleated RBC 0.000 0.000 Nucleated RBC % (auto) 0.0 0.0 Smear Tech's Comments VERIFIED PT INR Sodium 143 Potassium 3.6 D Chloride 101 Carbon Dioxide 30 H Anion Gap 16 BUN 37 H Creatinine 1.40 Estim Creat Clear Calc 42.3 Estimated GFR 48 POC Glucose Random Glucose 118 H Lactic Acid Lactic Acid Fup @ 2Hr Calcium 8.7 D Magnesium Total Bilirubin AST ALT Alkaline Phosphatase Total Creatine Kinase 830 H D Troponin I High Sens B-Natriuretic Peptide Total Protein Albumin Urine Color Urine Appearance Urine pH Ur Specific [place] Urine Protein Urine Glucose (UA) Urine Ketones Urine Blood Urine Nitrite Ur Leukocyte Esterase Urine RBC Urine WBC Ur Squamous Epith Cells Urine Bacteria COVID-19 (KAMAR) COVID-19 Clin Com Blood Type Antibody Screen 10/20/20 10/21/20 10/21/20 05:43 10:54 11:16 WBC RBC Hgb Hct MCV MCH MCHC RDW Plt Count MPV Immature Gran % (Auto) Neut % (Auto) Lymph % (Auto) [place] % (Auto) Eos % (Auto) Baso % (Auto) Lymph # (Auto) [place] # (Auto) Eos # (Auto) Baso # (Auto) Abs Immat Gran (auto) Absolute Neuts (auto) Absolute Nucleated RBC Nucleated RBC % (auto) Smear Tech's Comments PT INR Sodium 139 Potassium 4.0 Chloride 99 Carbon Dioxide 34 H Anion Gap 10 L BUN 36 H Creatinine 1.18 Estim Creat Clear Calc 50.2 Estimated GFR 59 POC Glucose 119 H Random Glucose 114 Lactic Acid Lactic Acid Fup @ 2Hr Calcium 8.4 Magnesium Total Bilirubin AST ALT Alkaline Phosphatase Total Creatine Kinase Troponin I High Sens B-Natriuretic Peptide Total Protein Albumin Urine Color Urine Appearance Urine pH Ur Specific [place] Urine Protein Urine Glucose (UA) Urine Ketones Urine Blood Urine Nitrite Ur Leukocyte Esterase Urine RBC Urine WBC Ur Squamous Epith Cells Urine Bacteria COVID-19 (KAMAR) COVID-19 Clin Com Blood Type A Positive Antibody Screen NEGATIVE Airway Mallampati Class: II TM Dist: <=3cm Neck ROM: Limited Assessment and Plan Assessment Anesthesia Assessment: Anesthesia Plan Discussed Final Anesthetic Review NPO: Yes ASA Class: III Final Preanesthetic Review: No Changes in Pt Med Stat, Meds/Allgs Chart Reviewed, Consent Obtained/Reviewed and Anes Risks/Benef Reviewed Patient Risk: Intermediate Procedure Risk: Intermediate Assessment/Block/Sedation in SS: Assess/Block/Sedation-SS Anesthetic Plan Anesthetic Plan: GA Disposition: Standard PACU
--- NOTE | 2020-10-21 14:05 | P.EN_ITS ---
Event Note Date of Service: 10/21/20 Event Note: Patient went down for surger and RN down there reported that patie nt' says there's latency in his speech, I could not get the same out of him. His neuro exam shows no focal weakness, speech sounds to me from earlier in the morning (first time seeing him), CT of head shows no stroke, he obviously has aspiration risk. Dr. Carreno from neuro saw him and there is no concern for stroke and recommend whatever needs to be to be done and to go to SNF later. Therefore proceed to surgery.
--- NOTE | 2020-10-21 14:24 | P.CNNE_ITS ---
History of Present Illness Data of Consult Service Date: 10/21/20 Primary Care Provider: Bimal Velez MD 85 years old man who was brought from home after he fell. Down time was unclear. He was noted to have femoral fracture. He was also noted to have difficulty with speaking and swallowing this consultation was requested. He was not have cooperative historian. [facility] Past Medical History Medical History Cardiomyopathy, unspecified CHF (congestive heart failure) HTN (hypertension) HTN (hypertension) Persistent atrial fibrillation Functional capacity: independent ambulation Family History Family History Father No problems noted. Mother No problems noted. Surgical History Surgical History Hx of appendectomy Social History Social History Household Members: None Housing: House Do you presently have visiting nurse or other home services: No Alcohol intake: never Patient Tobacco Use Status: Never used Tobacco Use of substances other than those prescribed or required for medical reasons: No Currently Displaying Signs/Symptoms of Drug Intoxication Withdrawal: No Have you been hit, kicked, punched, or otherwise hurt by someone within the past year? If so, by whom?: No Is there a partner from a previous relationship who is making you feel unsafe now?: No Are you made to feel afraid or neglected: No Are you DNR?: Yes Advance Directives: Yes Advance Directives on File: Yes Advance Directives Date on File: 04/29/20 Do you have thoughts of harming others: None Do you have a plan to hurt others: No Plan Recently lost weight without trying: Yes How much weight loss: 2-13 pounds Nutrition Risks: Difficulty swallowing Poor oral hygiene: No service: Yes Current occupational status: retired Meds Allergies Allergy/AdvReac Type Severity Reaction Status Date / Time streptomycin [Streptomycin] Allergy Mild UNKNOWN Verified 03/19/20 14:05 Penicillins Allergy Unknown unk Verified 03/19/20 14:05 Sulfa (Sulfonamide Allergy Unknown UNKNOWN Verified 05/29/20 14:24 Antibiotics) [SULFA (SULFONAMIDE ANTIBIOTICS)] Active Medications: Current Medications Generic Name Dose Route Start Last Admin Trade Name Freq PRN Reason Stop Dose Admin Acetaminophen 650 mg 10/18/20 15:44 10/19/20 20:08 Acetaminophen 325 Mg Tablet PO 650 mg Q6H PRN Administration Pain, Mild (Pain Scale 1-3) Amiodarone HCl 200 mg 10/19/20 09:00 10/21/20 08:34 Amiodarone Hcl 200 Mg Tablet PO 200 mg DAILY KEAGAN Administration Docusate Sodium 100 mg 10/19/20 09:00 10/21/20 08:29 Docusate Sodium 100 Mg Capsule PO Not Given DAILY KEAGAN Metoprolol Tartrate 25 mg 10/18/20 21:00 10/21/20 08:34 Metoprolol Tartrate 25 Mg Tablet PO 25 mg BID KEAGAN Administration Protocol Morphine Sulfate 2 mg 10/18/20 15:44 Morphine Sulfate 4 Mg/Ml Cartridge IVPUSH Q4H PRN Pain, Severe (Pain Scale 7-10) Ondansetron HCl 4 mg 10/18/20 15:44 Ondansetron Hcl 4 Mg/2 Ml Vial IVPUSH Q8H PRN Nausea and Vomiting Oxycodone HCl 5 mg 10/18/20 15:44 10/20/20 07:58 Oxycodone Hcl Immed Release 5 Mg Tablet PO 5 mg Q6H PRN Administration Pain, Moderate (Pain Scale 4-6 Senna 17.2 mg 10/18/20 21:00 10/20/20 21:00 Sennosides 8.6 Mg Tablet PO 17.2 mg BEDTIME KEAGAN Administration Sodium Chloride 3 ml 10/18/20 16:00 10/21/20 08:34 0.9 % Sodium Chloride Flush 3 Ml Syringe IVFLUSH 3 ml QSHIFT KEAGAN Administration Home Medications Medication Instructions Recorded Confirmed Last Taken Type furosemide 40 mg tablet 20 mg PO DAILY 01/17/20 10/18/20 Unknown History metoprolol tartrate 1 tab PO BID 10/18/20 10/18/20 Unknown History potassium chloride 1 tab PO DAILY 10/18/20 10/18/20 Unknown History Physical Exam Vital Signs: Vital Signs: Last Vital Signs Temp 99.7 F 10/21/20 14:14 Pulse 71 10/21/20 14:14 Resp 20 10/21/20 14:14 BP 186/79 H 10/21/20 14:14 Pulse Ox 96 10/21/20 14:14 Body Mass Index 24.4 He was alert and awake looking around made eye contact and answered questions. Speech was slightly slurred. His throat and tongue were very dry, likely the cause of speech problem. There was no fasciculation or abnormality of palatal movement. Pupils were equal and reactive to light and extraocular muscles were intact. Visual landeros are full to confrontation. Deep tendon reflexes were absent with flexor plantars. He had lost significant amount of muscle mass with almost bones or under the skin. Results Labs CBC & Chem 7: 10/20/20 05:43 10/20/20 05:43 Microbiology Microbiology Results: Microbiology 10/18/20 11:43 Blood - Venous Blood Culture - Preliminary No growth after 48 hours. 10/18/20 11:38 Blood - Venous Blood Culture - Preliminary No growth after 48 hours. 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 He was brought to hospital after a fall. His neurological examination did not reveal any focal abnormality to explain difficulty speaking or swallowing, which probably was from significant dryness underlying dementia likely has contributed to failure to thrive and weight loss. There is no indication of a stroke. My recommendation is surgical correction as soon as possible and transferred to [facility] permanent placement. Procedures Date of Service Date of Service: 10/21/20
--- NOTE | 2020-10-21 15:54 | P.BOP_ITS ---
Brief Operative Note Date of Service: 10/21/20 Pre-op diagnosis: left hip fracture Post-op diagnosis: same Procedure: left hip hemiarthroplasty Implants: [place] Surgeon: Noe Gibbons MD Anesthesia: GETA and local Was an Hospice Social Worker used for this Procedure?: Yes Hospice Social Worker: Ashley Wilson Estimated blood loss (mL): 50 IV fluids (mL): 800 Pathology: other Condition: stable Disposition: PACU
--- NOTE | 2020-10-21 15:58 | P.OP_ITS ---
Operative Note Operative Note Date of Service: 10/21/20 Narrative: Pre-op diagnosis: left hip fracture Post-op diagnosis: same Procedure: left hip hemiarthroplasty Implants: [place] Surgeon: Noe Gibbons MD Anesthesia: GETA and local Was an Authorization Specialist used for this Procedure?: Yes Authorization Specialist: Ashley Wilson Estimated blood loss (mL): 50 IV fluids (mL): 800 Pathology: other Condition: stable Disposition: PACU Procedure in detail: Patient was brought to the operative room placed in the lateral decubitus position. All bony prominences were well padded he was prepped and draped in standard sterile fashion. IV antibiotics per weight were administered and a time-out was called to identify proper site proper procedure proper surgeon. Radiographs were available and confirmed. I began by making a curvilinear incision over the posterolateral aspect of the greater trochanter. Dissection was taken down to the tensor fascia which was incised in line with the incision and a Charnley retractor was placed. The hip was internally rotated and the external rotators were identified. All vessels in the area were cauterized and a full-thickness capsular/external rotator layer was developed in a hockey-stick fashion starting just proximal to the piriformis. This layer was tagged and the displaced femoral neck fracture was identified. A clean-up cut was performed and the head was removed and measured on the back table. I then copiously irrigated the acetabulum and removed all bony fragments. Once this was done I used a cookie cutter to lateralize and a Charnley awl to identify the canal and then sequentially broached up to a #__8___. I then trialed with a +0 standard head and a bipolar component matching the femoral head size (54). I was satisfied with the range of motion and stability and length. Therefore I removed all instrumentation and copiously irrigated. I then placed my final femoral implant and re-trialed. I was satisfied with the ___+0 implant and a +0 26/54 bipolar component was placed. Once this was done I closed the capsular layer with FiberWire and then performed a layered closure with marquis on skin. Patient was placed in sterile dressing extubated brought to recovery room in stable condition there were no known complications.
--- NOTE | 2020-10-21 16:14 | PC.NURSE ---
pt given po meds with water this am. noted to cough with delayed swallow. congested upper airway. pt was brought down for surgery. while in pre-op he told staff he was having difficulty speaking. Dr Chavarria was notified. Head ct was done. surgery was cx, upon arrival pt mentation was no different than prior. nusing swallow eval was done wich pt failed. consult for speech eval was placed. Dr chavarria made aware. pt remained npo. At 1430 pt was cleared by neuro and pt went down for surgery. Pt's family was updated .
[2020-10-21] MEDS: fentaNYL citrate/PF 100 MCG/2 ML VIAL 25 MCG IVPUSH (16:30)
--- NOTE | 2020-10-21 17:11 | PC.NURSE ---
Pt returned from PACU - p-op left hip arthroplasty. Skin is pwd, dressing to left hip intact, with positive pulses. NSR on the monitor. Currently resting comfortably. Will continue to monitor.
[2020-10-21] MEDS: Sennosides 8.6 MG TABLET 17.2 MG PO (19:56)
[2020-10-22] VITALS (9 sets, daily range): BP systolic 151–180; BP diastolic 68–80; PULSE 60–75; RESP 16–20; TEMP 36.4–36.8; O2SAT 93–97
[2020-10-22] MEDS: Morphine Sulfate 4 MG/ML CARTRIDGE 2 MG IVPUSH ×3 (04:12→21:23)
--- NOTE | 2020-10-22 06:31 | PC.NURSE ---
Addendum entered by Taylor Brunner RN 10/22/20 07:21: asked by nursing nuclear powerplant supervisor this am to update orthopedic surgeon of below issue, NELSON Frausto was sent tiger text note of details. Original Note: POST OP ANTIBIOTIC NOTED TO BE DUE FROM PREVIOUS SHIFT, NURSING FRANCHISE CONSULTANT ALERTED AND MEDICINE NEEDED TO BE OBTAINED BY FRANCHISE CONSULTANT ALSO. PHARMACY CALLED AGAIN BY NURSING FRANCHISE CONSULTANT UNABLE TO SCAN AND TIME CHANGE.
--- NOTE | 2020-10-22 07:59 | P.PNOP_ITS ---
Subjective Subjective Date of Service: 10/22/20 Interval history: POD1 s/p left hip carlee with Dr. Gibbons. No overnight events. Patient is resting comfortably in bed. Pain is well managed. No additional complaints. Physical Exam Vital Signs: Vital Signs: Last Vital Signs Temp 98.0 F 10/22/20 03:55 Pulse 70 10/22/20 03:55 Resp 20 10/22/20 04:12 BP 157/76 H 10/22/20 03:55 Pulse Ox 93 10/22/20 03:55 Body Mass Index 24.4 Const: General: cooperative, healthy appearing and no acute distress Resp: Effort & Inspection: normal respiratory effort and able to speak in complete sentences Cardio: Rate: regular rate Peripheral pulses: Peripheral pulses 2+ throughout GI: Palpation (GI): Soft to palpation Skin: Lesions: no lesions Rashes: no rashes Extrem: Other: Left hip no ecchymosis, erythema or drainage. Aquacel dressing is clean, dry, and intact. NVI Progress Note: A&P Assessment and plan (1) Status post hip hemiarthroplasty: Status: Acute Assessment and Plan: Continue pain mgmnt Begin Lovenox for 48hours post op, then patient will resume full dose Eliquis 5mg BID for dvt ppx begin PT for left hip carlee Dispo planning-Pending PT eval, pain mgmnt Fall Risk Details Current Medications: Current Medications Generic Name Dose Route Start Last Admin Trade Name Freq PRN Reason Stop Dose Admin Acetaminophen 650 mg 10/18/20 15:44 10/19/20 20:08 Acetaminophen 325 Mg Tablet PO 650 mg Q6H PRN Administration Pain, Mild (Pain Scale 1-3) Amiodarone HCl 200 mg 10/19/20 09:00 10/21/20 08:34 Amiodarone Hcl 200 Mg Tablet PO 200 mg DAILY KEAGAN Administration Apixaban 5 mg 10/23/20 20:00 Apixaban 5 Mg Tablet PO BID KEAGAN Docusate Sodium 100 mg 10/19/20 09:00 10/21/20 08:29 Docusate Sodium 100 Mg Capsule PO Not Given DAILY KEAGAN Enoxaparin Sodium 40 mg 10/22/20 08:00 Enoxaparin Sodium 40 Mg/0.4 Ml Syringe SUBCUT 10/23/20 08:01 Q24H KEAGAN Metoprolol Tartrate 25 mg 10/18/20 21:00 10/21/20 19:56 Metoprolol Tartrate 25 Mg Tablet PO 25 mg BID KEAGAN Administration Protocol Morphine Sulfate 2 mg 10/18/20 15:44 10/22/20 04:12 Morphine Sulfate 4 Mg/Ml Cartridge IVPUSH 2 mg Q4H PRN Administration Pain, Severe (Pain Scale 7-10) Ondansetron HCl 4 mg 10/18/20 15:44 Ondansetron Hcl 4 Mg/2 Ml Vial IVPUSH Q8H PRN Nausea and Vomiting Oxycodone HCl 5 mg 10/18/20 15:44 10/20/20 07:58 Oxycodone Hcl Immed Release 5 Mg Tablet PO 5 mg Q6H PRN Administration Pain, Moderate (Pain Scale 4-6 Senna 17.2 mg 10/18/20 21:00 10/21/20 19:56 Sennosides 8.6 Mg Tablet PO 17.2 mg BEDTIME KEAGAN Administration Sodium Chloride 3 ml 10/18/20 16:00 10/21/20 23:42 0.9 % Sodium Chloride Flush 3 Ml Syringe IVFLUSH 3 ml QSHIFT KEAGAN Administration Time Spent With Patient Time: Total time spent is greater than 50% in coordination of care (as docume nted) at patient's floor/unit and/or counseling patient: Time with patient: less than 15 minutes Procedures Date of Service Date of Service: 10/22/20 Quality Stroke Does the patient have a stroke diagnosis?: No VTE Prior VTE?: No VTE Risk Level:: Medical - moderate - high VTE Device Contraindication: N/A - Device Ordered VTE Drug Contraindication: Treatment Not Indicated
[2020-10-22] MEDS: Metoprolol Tartrate 25 MG TABLET PO ×2 (09:21→21:23)
[2020-10-22] MEDS: Amiodarone HCL 200 MG TABLET PO (09:22)
[2020-10-22] MEDS: 0.9 % Sodium Chloride Flush 3 ML SYRINGE IVFLUSH (09:22)
[2020-10-22] MEDS: Enoxaparin Sodium 40 MG/0.4 ML SYRINGE SUBCUT (09:22)
--- NOTE | 2020-10-22 10:36 | HO.PM.IMPN ---
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, no dizziness CVS no chest pain, no palpitation GI no nausea, no vomiting, no diarrhea no frequency, no urgency Physical Exam Vital Signs: Vital Signs: Last Vital Signs Temp 98.3 F 10/22/20 08:00 Pulse 75 10/22/20 09:21 Resp 17 10/22/20 08:00 BP 153/74 H 10/22/20 09:21 Pulse Ox 95 10/22/20 09:21 Body Mass Index 24.4 Const: General: comfortable, no acute distress, alert and awake Nutritional Appearance: well nourished Orientation/consciousness: oriented to person and oriented to place HENMT: Head: Yes normocephalic and Yes atraumatic Eyes: Sclerae: sclerae normal Chest: Chest palpation & inspection: normal inspection of the chest Resp: Effort & Inspection: normal respiratory effort and no respiratory distress Auscultation: clear to auscultation bilaterally Cardio: Rate: regular rate Rhythm: regular rhythm GI: Palpation (GI): Soft to palpation and nontender Neuro: General: oriented to person and oriented to place Cranial nerves: Yes CN's II-XII intact bilaterally and Yes Bilaterally intact EOM present Extrem: Other: left leg ER and shortened; chronic skin changes as above; left leg edema Objective Data Current Medications Generic Name Dose Route Start Last Admin Trade Name Freq PRN Reason Stop Dose Admin Acetaminophen 650 mg 10/18/20 15:44 10/19/20 20:08 Acetaminophen 325 Mg Tablet PO 650 mg Q6H PRN Administration Pain, Mild (Pain Scale 1-3) Amiodarone HCl 200 mg 10/19/20 09:00 10/22/20 09:22 Amiodarone Hcl 200 Mg Tablet PO 200 mg DAILY [facility] Administration Apixaban 5 mg 10/23/20 20:00 Apixaban 5 Mg Tablet PO BID KEAGAN Docusate Sodium 100 mg 10/19/20 09:00 10/22/20 09:33 Docusate Sodium 100 Mg Capsule PO Not Given DAILY [facility]AGAN Enoxaparin Sodium 40 mg 10/22/20 08:00 10/22/20 09:22 Enoxaparin Sodium 40 Mg/0.4 Ml Syringe SUBCUT 10/23/20 08:01 40 mg Q24H KEAGAN Administration Dextrose/Lactated Ringer's 1,000 mls @ 100 mls/hr 10/22/20 10:45 D5lr IVCONT .Q10H [facility] Metoprolol Tartrate 25 mg 10/18/20 21:00 10/22/20 09:21 Metoprolol Tartrate 25 Mg Tablet PO 25 mg BID [facility]AN Administration Protocol Morphine Sulfate 2 mg 10/18/20 15:44 10/22/20 09:21 Morphine Sulfate 4 Mg/Ml Cartridge IVPUSH 2 mg Q4H PRN Administration Pain, Severe (Pain Scale 7-10) Ondansetron HCl 4 mg 10/18/20 15:44 Ondansetron Hcl 4 Mg/2 Ml Vial IVPUSH Q8H PRN Nausea and Vomiting Oxycodone HCl 5 mg 10/18/20 15:44 10/20/20 07:58 Oxycodone Hcl Immed Release 5 Mg Tablet PO 5 mg Q6H PRN Administration Pain, Moderate (Pain Scale 4-6 Senna 17.2 mg 10/18/20 21:00 10/21/20 19:56 Sennosides 8.6 Mg Tablet PO 17.2 mg BEDTIME [facility] Administration Sodium Chloride 3 ml 10/18/20 16:00 10/22/20 09:22 0.9 % Sodium Chloride Flush 3 Ml Syringe IVFLUSH 3 ml QSHIFT [facility] Administration Labs CBC & Chem 7: 10/20/20 05:43 10/20/20 05:43 Labs: Laboratory Results - last 24 hr 10/21/20 10/21/20 10:54 11:16 POC Glucose 119 H Blood Type A Positive Antibody Screen NEGATIVE Quality Stroke Does the patient have a stroke diagnosis?: No VTE Prior VTE?: No VTE Risk Level:: Medical - moderate - high VTE Device Contraindication: N/A - Device Ordered VTE Drug Contraindication: Treatment Not Indicated Assessment and Plan (1) Rhabdomyolysis: Status: Acute (2) Acute kidney injury superimposed on chronic kidney disease: Status: Acute (3) Fracture of femoral neck, left: Status: Acute (4) PAF (paroxysmal atrial fibrillation): Status: Acute (5) Cardiomyopathy: Status: Acute Assessment and Plan: 85-year-old male with a history cardiomyopathy, atrial fibrillation on Eliquis, hypertension brought to the emergency department after a fall found to have left hip fracture, lactic acidosis, LAUREN, elevated CPK Left femoral neck fracture s/p ORIF 10/21, doing well continue post management, pain management, PT/OT Rhabdo CPK down from 1793 to 830 as of 10/20 LAUREN--resolved with IVF Elevated toponin No chest pain, no acute ischemic changes on EKG,Likely stress related from fall/fracture, seen by cardiology no further change in medical management, follow echo SIRS Pt mes criteria with RR 24, WBC 13.6, Lactic acid elevated at 4 on arrival now resolved Leukocytosis resolved and seems chronic CXR, UA negative No evidence of infection/sepsis. Reactive in setting of fall/hip fracture. 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
[2020-10-22] MEDS: Dextrose 5 % and Lactated Ring 1,000 ML 100 ML IVCONT (10:56)
--- NOTE | 2020-10-22 11:31 | MHC.CM.PN ---
IMM 10/22/2020, EMR REVIEWED, PER HOSPITALIST ANTICIPATE D/C TOMORROW 10/23/2020, CM SPOKE WITH PT'S COUSIN PAR[place] FOR UPDATE PER PT'S VERBAL CONSENT, PT/FAMILY AWARE [facility] IS NOT TAKING PT'S WHO ARE NOT FULLY VACCINATED, REFERRALS FOR [facility] AND [facility] MADE PER REQUEST. [facility] IS OFFERING A BED, CM AWAITING RESPONSE FROM [facility]. CM WILL CONT TO FOLLOW D/C NEEDS.
[2020-10-22 11:35] LABS: Hematocrit 41.7 % (42-52); Hemoglobin 13.4 g/dl (14.0-18.0); Mean Corpuscular HGB Conc 32.1 g/dl (31.0-36.0); Mean Corpuscular Hemoglobin 30.9 pg (27.0-33.0); Mean Corpuscular Volume 96.3 fL (80-98); Mean Platelet Volume 10.6 fL (9.4-12.4); Platelet Count 218 X10*3/uL (160-400); Red Blood Count 4.33 X10*6/uL (4.60-5.80); White Blood Count 11.7 X10*3/uL (4.8-10.8)
[2020-10-22 12:08] LABS: Anion Gap 13 (12-20); Blood Urea Nitrogen 33 mg/dL (9-16); Carbon Dioxide 34 mmol/L (22-29); Chloride 100 mmol/L (96-108); Creatinine Clr Calc Pharmacy 62.3; Estimated Glomerular Filt Rate > 60; Glucose Random 152 mg/dL (60-115); Potassium 4.3 mmol/L (3.3-5.1); Sodium 143 mmol/L (135-145)
--- NOTE | 2020-10-22 12:26 | MHC.SL.SWA ---
Speech Pathologist Impression: Pharyngeal Dysphagia Risk of Aspiration Due to: Poor PO Intake Dysphasia Diet Status: No Change Liquid Consistency and Strategies for Safe Swallow: Liquid Intake Recommendation: NPO Liquid Intake Strategies: Solid Food Consistency: Dietary Recommendations: NPO Additional Modifications to Solid Foods: Oral Medication Intake: NPO Compensatory Strategies and Precautions to be Taken for Safe Swallow: Supervision While Eating and Drinking for Safe Swallow: PO with NETWORK SPECIALIST Foods to Avoid: Swallowing Recommended Treatments: Recommendation for Speech: Inpatient Speech Therapy Modified Barium Swallow Study - Inpatient Modified Barium Swallow Study - Outpatient Comment: Recommend inpt speech therapy and MBSS to determine safest and least restrictive diet consistency. Frequency/Duration: Date Range for Service Req: Timeline to reassess: Aircraft Mechanic Armament Clinican/Clinical Fellow: No Supervisory Statement: I have reviewed and agree with the student/clinical fellow's documentation: N/A Speech Language Pathologist: Marleen Bennett M.A. CCC-NETWORK SPECIALIST
--- NOTE | 2020-10-22 13:13 | MHC.CLN ---
FOLLOW UP POSTDOCTORAL SCIENTIST RECOMMENDS NPO AND MBS. HAD ENSURE TID AND KIM BID IN PLACE FOR WOUND HEALING. FOLLOW FOR MBSS/POSTDOCTORAL SCIENTIST FINDINGS.
--- NOTE | 2020-10-22 15:57 | HO.POSTANES ---
Post Anesthesia Evaluation Post Anesthesia Evaluation Vital Signs: Vital Signs Temp Pulse Resp BP Pulse Ox 10/22/20 15:40 98.1 F 66 16 159/72 H 97 10/22/20 11:47 97.6 F 60 19 151/68 H 96 10/22/20 09:21 75 153/74 H 95 10/22/20 08:00 98.3 F 75 17 153/74 H 95 10/22/20 04:12 20 Anesthesia: General Mental Status: Awake Pain Control: Satisfactory Nausea/Vomiting: None Hydration: Adequate Anesthesia-Related Issues: No Anes. Related Issues
--- NOTE | 2020-10-22 17:37 | PC.NURSE ---
pt had a period of confusion this afternoon after going back to bed. Dr Chavarria made aware. Also addressed was need for modified barium swallow.
[2020-10-22] MEDS: Sennosides 8.6 MG TABLET 17.2 MG PO (21:25)
[2020-10-23] VITALS (10 sets, daily range): BP systolic 132–188; BP diastolic 61–81; PULSE 58–107; RESP 14–19; TEMP 36.2–37.1; O2SAT 95–98
[2020-10-23] MEDS: Dextrose 5 % and Lactated Ring 1,000 ML 100 ML IVCONT ×2 (01:55→11:20)
[2020-10-23] MEDS: Morphine Sulfate 4 MG/ML CARTRIDGE 2 MG IVPUSH (01:59)
[2020-10-23 07:21] LABS: Hematocrit 40.2 % (42-52); Mean Corpuscular HGB Conc 32.3 g/dl (31.0-36.0); Mean Corpuscular Hemoglobin 31.3 pg (27.0-33.0); Mean Corpuscular Volume 96.6 fL (80-98); Mean Platelet Volume 10.8 fL (9.4-12.4); Platelet Count 223 X10*3/uL (160-400); Red Blood Count 4.16 X10*6/uL (4.60-5.80); Red Cell Distribution Width 12.9 % (11.0-16.0); White Blood Count 10.8 X10*3/uL (4.8-10.8)
[2020-10-23] MEDS: Amiodarone HCL 200 MG TABLET PO (08:53)
[2020-10-23] MEDS: Enoxaparin Sodium 40 MG/0.4 ML SYRINGE SUBCUT (08:53)
[2020-10-23] MEDS: Metoprolol Tartrate 25 MG TABLET PO ×2 (08:54→19:59)
--- NOTE | 2020-10-23 09:14 | PM.PNORT ---
Subjective Subjective Date of Service: 10/23/20 Interval history: POD2 s/p left hip carlee. Patient is resting comfortably in bed. Pain is manged. No overnight events. Physical Exam Vital Signs: Vital Signs: Last Vital Signs Temp 98.7 F 10/23/20 07:53 Pulse 75 10/23/20 08:54 Resp 19 10/23/20 07:53 BP 164/80 H 10/23/20 08:54 Pulse Ox 98 10/23/20 08:37 Body Mass Index 24.4 Const: General: cooperative, healthy appearing and no acute distress Resp: Effort & Inspection: normal respiratory effort and able to speak in complete sentences Cardio: Rate: regular rate Peripheral pulses: Peripheral pulses 2+ throughout GI: Palpation (GI): Soft to palpation Skin: Lesions: no lesions Rashes: no rashes Extrem: Other: Left hip no ecchymosis, redness, or drainage. Aquacel dressing is clean. dry, and intact. NVI. Progress Note: A&P Assessment and plan (1) Status post hip hemiarthroplasty: Status: Acute Assessment and Plan: Continue pain mgmnt Continue Eliquis for dvt ppx Continue PT for Dispo planning-Pending PT eval, pain mgmnt Fall Risk Details Current Medications: Current Medications Generic Name Dose Route Start Last Admin Trade Name Freq PRN Reason Stop Dose Admin Acetaminophen 650 mg 10/18/20 15:44 10/19/20 20:08 Acetaminophen 325 Mg Tablet PO 650 mg Q6H PRN Administration Pain, Mild (Pain Scale 1-3) Amiodarone HCl 200 mg 10/19/20 09:00 10/23/20 08:53 Amiodarone Hcl 200 Mg Tablet PO 200 mg DAILY KEAGAN Administration Apixaban 5 mg 10/23/20 20:00 Apixaban 5 Mg Tablet PO BID [facility] Docusate Sodium 100 mg 10/19/20 09:00 10/23/20 07:28 Docusate Sodium 100 Mg Capsule PO Not Given DAILY [facility] Dextrose/Lactated Ringer's 1,000 mls @ 100 mls/hr 10/22/20 10:45 10/23/20 06:55 D5lr IVCONT Not Given .Q10H [facility] Metoprolol Tartrate 25 mg 10/18/20 21:00 10/23/20 08:54 Metoprolol Tartrate 25 Mg Tablet PO 25 mg BID [facility] Administration Protocol Morphine Sulfate 2 mg 10/18/20 15:44 10/23/20 01:59 Morphine Sulfate 4 Mg/Ml Cartridge IVPUSH 2 mg Q4H PRN Administration Pain, Severe (Pain Scale 7-10) Ondansetron HCl 4 mg 10/18/20 15:44 Ondansetron Hcl 4 Mg/2 Ml Vial IVPUSH Q8H PRN Nausea and Vomiting Oxycodone HCl 5 mg 10/18/20 15:44 10/20/20 07:58 Oxycodone Hcl Immed Release 5 Mg Tablet PO 5 mg Q6H PRN Administration Pain, Moderate (Pain Scale 4-6 Senna 17.2 mg 10/18/20 21:00 10/22/20 21:25 Sennosides 8.6 Mg Tablet PO 17.2 mg BEDTIME [facility] Administration Sodium Chloride 3 ml 10/18/20 16:00 10/23/20 07:20 0.9 % Sodium Chloride Flush 3 Ml Syringe IVFLUSH Not Given QSHIFT [facility] Time Spent With Patient Time: Total time spent is greater than 50% in coordination of care (as documented) at patient's floor/unit and/or counseling patient: Time with patient: less than 15 minutes Procedures Date of Service Date of Service: 10/23/20 Quality Stroke Does the patient have a stroke diagnosis?: No VTE Prior VTE?: No VTE Risk Level:: Medical - moderate - high VTE Device Contraindication: N/A - Device Ordered VTE Drug Contraindication: Treatment Not Indicated
--- NOTE | 2020-10-23 11:19 | MHC.SLORD ---
Speech Language Pathology Order Status: MBSS order received this morning. Pt is scheduled for 1430. Recommendations to follow.
--- NOTE | 2020-10-23 14:12 | HO.PM.IMPN ---
Subjective Subjective Date of Service: 10/23/20 Interval History: F/u on hip fracture, feels but, no more hicups, still NPO pending MBS. 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 no headache, no dizziness CVS no chest pain, no palpitation GI no nausea, no vomiting, no diarrhea no frequency, no urgency some confusion Physical Exam Vital Signs: Vital Signs: Last Vital Signs Temp 97.2 F 10/23/20 11:35 Pulse 66 10/23/20 11:35 Resp 19 10/23/20 11:35 BP 188/77 H 10/23/20 11:35 Pulse Ox 97 10/23/20 11:35 Body Mass Index 24.4 Objective Data Current Medications Generic Name Dose Route Start Last Admin Trade Name Freq PRN Reason Stop Dose Admin Acetaminophen 650 mg 10/18/20 15:44 10/19/20 20:08 Acetaminophen 325 Mg Tablet PO 650 mg Q6H PRN Administration Pain, Mild (Pain Scale 1-3) Amiodarone HCl 200 mg 10/19/20 09:00 10/23/20 08:53 Amiodarone Hcl 200 Mg Tablet PO 200 mg DAILY [facility] Administration Apixaban 5 mg 10/23/20 20:00 Apixaban 5 Mg Tablet PO BID [facility] Docusate Sodium 100 mg 10/19/20 09:00 10/23/20 07:28 Docusate Sodium 100 Mg Capsule PO Not Given DAILY [facility] Dextrose/Lactated Ringer's 1,000 mls @ 100 mls/hr 10/22/20 10:45 10/23/20 11:20 D5lr IVCONT 100 mls/hr .Q10H [facility] Administration Metoprolol Tartrate 25 mg 10/18/20 21:00 10/23/20 08:54 Metoprolol Tartrate 25 Mg Tablet PO 25 mg BID [facility] Administration Protocol Morphine Sulfate 2 mg 10/18/20 15:44 10/23/20 01:59 Morphine Sulfate 4 Mg/Ml Cartridge IVPUSH 2 mg Q4H PRN Administration Pain, Severe (Pain Scale 7-10) Ondansetron HCl 4 mg 10/18/20 15:44 Ondansetron Hcl 4 Mg/2 Ml Vial IVPUSH Q8H PRN Nausea and Vomiting Oxycodone HCl 5 mg 10/18/20 15:44 10/20/20 07:58 Oxycodone Hcl Immed Release 5 Mg Tablet PO 5 mg Q6H PRN Administration Pain, Moderate (Pain Scale 4-6 Senna 17.2 mg 10/18/20 21:00 10/22/20 21:25 Sennosides 8.6 Mg Tablet PO 17.2 mg BEDTIME [facility] Administration Sodium Chloride 3 ml 10/18/20 16:00 10/23/20 07:20 0.9 % Sodium Chloride Flush 3 Ml Syringe IVFLUSH Not Given QSHIFT [facility] Labs CBC & Chem 7: 10/23/20 06:53 10/22/20 11:03 Labs: Laboratory Results - last 24 hr 10/23/20 06:53 WBC 10.8 RBC 4.16 L Hgb 13.0 L Hct 40.2 L MCV 96.6 MCH 31.3 MCHC 32.3 RDW 12.9 Plt Count 223 MPV 10.8 Absolute Nucleated RBC 0.000 Nucleated RBC % (auto) 0.0 Microbiology Microbiology Results: Microbiology 10/18/20 11:43 Blood Culture - Final Blood - Venous No growth after 5 days. 10/18/20 11:38 Blood Culture - Final Blood - Venous No growth after 5 days. Quality Stroke Does the patient have a stroke diagnosis?: No VTE Prior VTE?: No VTE Risk Level:: Medical - moderate - high VTE Device Contraindication: N/A - Device Ordered VTE Drug Contraindication: Treatment Not Indicated Assessment and Plan (1) Rhabdomyolysis: Status: Acute (2) Acute kidney injury superimposed on chronic kidney disease: Status: Acute (3) Fracture of femoral neck, left: Status: Acute (4) PAF (paroxysmal atrial fibrillation): Status: Acute (5) Cardiomyopathy: Status: Acute Assessment and Plan: 85-year-old male with a history cardiomyopathy, atrial fibrillation on Eliquis, hypertension brought to the emergency department after a fall found to have left hip fracture, lactic acidosis, LAUREN, elevated CPK Left femoral neck fracture s/p ORIF 10/21, doing well continue post management, pain management, PT/OT Rhabdo CPK down from 1793 to 830 as of 10/20 LAUREN--resolved with IVF Elevated toponin No chest pain, no acute ischemic changes on EKG,Likely stress related from fall/fracture, seen by cardiology no further change in medical management, follow echo SIRS Pt mes criteria with RR 24, WBC 13.6, Lactic acid elevated at 4 on arrival now resolved Leukocytosis resolved and seems chronic CXR, UA negative No evidence of infection/sepsis. Reactive in setting of fall/hip fracture. 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 confusion, from situation changes (Not encephalopathy) DVT ppx - boots; eliquis on hold for surgery Code status - MOLST on file DNR/DNI
--- NOTE | 2020-10-23 15:54 | MHC.SLORD ---
Speech Language Pathology Order Status: WARE SERVER attempted MBSS at 1430 today. Pt refused, stating that he did not want to drink barium. Pt appeared confused and did not understand the rationale for the test. WARE SERVER will follow up with pt tomorrow morning.
[2020-10-23] MEDS: Apixaban 5 MG TABLET PO (19:59)
[2020-10-23] MEDS: 0.9 % Sodium Chloride Flush 3 ML SYRINGE IVFLUSH (20:00)
[2020-10-24 03:20] VITALS: BP 172/78; PULSE 58; RESP 19; TEMP 36.3; O2SAT 91
[2020-10-24] MEDS: Dextrose 5 % and Lactated Ring 1,000 ML 100 ML IVCONT (07:41)
[2020-10-24 07:46] VITALS: BP 182/80; PULSE 57; RESP 18; TEMP 36.8; O2SAT 95
[2020-10-24 08:53] LABS: Hematocrit 35.6 % (42-52); Hemoglobin 11.3 g/dl (14.0-18.0); Mean Corpuscular HGB Conc 31.7 g/dl (31.0-36.0); Mean Corpuscular Hemoglobin 30.8 pg (27.0-33.0); Mean Platelet Volume 10.4 fL (9.4-12.4); Platelet Count 227 X10*3/uL (160-400); Red Blood Count 3.67 X10*6/uL (4.60-5.80); Red Cell Distribution Width 12.8 % (11.0-16.0); White Blood Count 7.7 X10*3/uL (4.8-10.8)
[2020-10-24 09:29] LABS: Blood Urea Nitrogen 20 mg/dL (9-16); Calcium 8.5 mg/dL (8.4-10.2); Creatinine Clr Calc Pharmacy 73.1; Estimated Glomerular Filt Rate > 60; Glucose Random 119 mg/dL (60-115)
--- NOTE | 2020-10-24 09:34 | PC.NURSE ---
pt very sleepy and difficult to wake, he has been coughing when awake then sleeping soundly. Morning meds not given as pt is aspiration precaution and not presenting in a way that ensures safe swallowing at this time.
[2020-10-24 09:42] LABS: Anion Gap 10 (12-20); Carbon Dioxide 33 mmol/L (22-29); Chloride 107 mmol/L (96-108); Potassium 3.3 mmol/L (3.3-5.1); Sodium 147 mmol/L (135-145)
--- NOTE | 2020-10-24 10:55 | HO.PM.IMPN ---
Subjective Subjective Date of Service: 10/24/20 Interval History: F/u on hip fracture, seem delirius, was more agitated overnight and now has a sitter, yesterday he did not pariticipate in modified barium swallow by refusing to drink barium ROS: confused, no able to obtain Physical Exam Vital Signs: Vital Signs: Last Vital Signs Temp 98.3 F 10/24/20 07:46 Pulse 57 10/24/20 07:46 Resp 18 10/24/20 07:46 BP 182/80 H 10/24/20 07:46 Pulse Ox 95 10/24/20 07:46 Body Mass Index 24.4 Const: Other: Constitutional Awake and Alert, confused, no distress Neck Supple, No lymphadenopathy Cardiovascular RRR, No M/R/G, S1 S2, No S3 S4, No pedal edema Respiratory Lungs clear, No respiratory distress Gastrointestinal Non tender, Non-distended Skin No rash, surgery site is clean no Neurological, confused, no focal neuro deficit Psychological Appropriate affect Objective Data Current Medications Generic Name Dose Route Start Last Admin Trade Name Benitez PRN Reason Stop Dose Admin Acetaminophen 650 mg 10/18/20 15:44 10/19/20 20:08 Acetaminophen 325 Mg Tablet PO 650 mg Q6H PRN Administration Pain, Mild (Pain Scale 1-3) Amiodarone HCl 200 mg 10/19/20 09:00 10/24/20 09:34 Amiodarone Hcl 200 Mg Tablet PO Not Given DAILY [facility] Apixaban 5 mg 10/23/20 20:00 10/24/20 09:34 Apixaban 5 Mg Tablet PO Not Given BID [facility] Docusate Sodium 100 mg 10/19/20 09:00 10/24/20 09:34 Docusate Sodium 100 Mg Capsule PO Not Given DAILY [facility] Dextrose/Lactated Ringer's 1,000 mls @ 100 mls/hr 10/22/20 10:45 10/24/20 07:41 D5lr IVCONT 100 mls/hr .Q10H [facility] Administration Metoprolol Tartrate 25 mg 10/18/20 21:00 10/24/20 09:34 Metoprolol Tartrate 25 Mg Tablet PO Not Given BID [facility] Protocol Ondansetron HCl 4 mg 10/18/20 15:44 Ondansetron Hcl 4 Mg/2 Ml Vial IVPUSH Q8H PRN Nausea and Vomiting Senna 17.2 mg 10/18/20 21:00 10/23/20 19:59 Sennosides 8.6 Mg Tablet PO Not Given BEDTIME [facility] Sodium Chloride 3 ml 10/18/20 16:00 10/24/20 07:42 0.9 % Sodium Chloride Flush 3 Ml Syringe IVFLUSH Not Given QSHIFT [facility] Labs CBC & Chem 7: 10/24/20 08:33 10/24/20 08:33 Labs: Laboratory Results - last 24 hr 10/24/20 10/24/20 08:33 08:33 WBC 7.7 RBC 3.67 L Hgb 11.3 L Hct 35.6 L MCV 97.0 MCH 30.8 MCHC 31.7 RDW 12.8 Plt Count 227 MPV 10.4 Absolute Nucleated RBC 0.000 Nucleated RBC % (auto) 0.0 Sodium 147 H Potassium 3.3 D Chloride 107 Carbon Dioxide 33 H Anion Gap 10 L BUN 20 H Creatinine 0.81 Estim Creat Clear Calc 73.1 Estimated GFR > 60 Random Glucose 119 H Calcium 8.5 Microbiology Microbiology Results: Microbiology 10/18/20 11:43 Blood Culture - Final Blood - Venous No growth after 5 days. 10/18/20 11:38 Blood Culture - Final Blood - Venous No growth after 5 days. Quality Stroke Does the patient have a stroke diagnosis?: No VTE Prior VTE?: No VTE Risk Level:: Medical - moderate - high VTE Device Contraindication: N/A - Device Ordered VTE Drug Contraindication: Treatment Not Indicated Assessment and Plan (1) Rhabdomyolysis: Status: Acute (2) Acute kidney injury superimposed on chronic kidney disease: Status: Acute (3) Fracture of femoral neck, left: Status: Acute (4) PAF (paroxysmal atrial fibrillation): Status: Acute (5) Cardiomyopathy: Status: Acute Assessment and Plan: 85-year-old male with a history cardiomyopathy, atrial fibrillation on Eliquis, hypertension brought to the emergency department after a fall found to have left hip fracture, lactic acidosis, LAUREN, elevated CPK Left femoral neck fracture s/p ORIF 10/21, no issues continue post management, pain management, PT/OT Started on Eliquis for DVT prophylaxis Rhabdo CPK down from 1793 to 830 as of 10/20 LAUREN--resolved with IVF Elevated toponin No chest pain, no acute ischemic changes on EKG,Likely stress related from fall/fracture, seen by cardiology no further change in medical management, follow echo Hypernatremia--sodium is 147, d/t no drinking, change IVF to D5LR SIRS Pt mes criteria with RR 24, WBC 13.6, Lactic acid elevated at 4 on arrival now resolved Leukocytosis resolved and seems chronic CXR, UA negative No evidence of infection/sepsis. Reactive in setting of fall/hip fracture. 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 Was not able to participate in MDS, will reattempt and also ask speech to reassess swallow Hicups, resolved. confusion, likely metabolic encephalopathy of multifactorial, hypernatremia, dehydration and change in scnenery and underlying cognitive impairment DVT ppkevin - nell emmanuel on hold for surgery Code status - MOLST on file DNR/DNI
--- NOTE | 2020-10-24 11:07 | PM.PNORT ---
Progress Note: A&P Assessment and plan (1) Status post hip hemiarthroplasty: Status: Acute Assessment and Plan: Continue pain management Continue PT for left hip hemiarthroplasty, posterior precautions Continue DVT prophylaxis Okay to discharge from an orthopedic standpoint will follow-up in 2 weeks Fall Risk Details Current Medications: Current Medications Generic Name Dose Route Start Last Admin Trade Name Freq PRN Reason Stop Dose Admin Acetaminophen 650 mg 10/18/20 15:44 10/19/20 20:08 Acetaminophen 325 Mg Tablet PO 650 mg Q6H PRN Administration Pain, Mild (Pain Scale 1-3) Amiodarone HCl 200 mg 10/19/20 09:00 10/24/20 09:34 Amiodarone Hcl 200 Mg Tablet PO Not Given DAILY [facility] Apixaban 5 mg 10/23/20 20:00 10/24/20 09:34 Apixaban 5 Mg Tablet PO Not Given BID [facility] Docusate Sodium 100 mg 10/19/20 09:00 10/24/20 09:34 Docusate Sodium 100 Mg Capsule PO Not Given DAILY [facility] Dextrose/Lactated Ringer's 1,000 mls @ 100 mls/hr 10/24/20 11:15 D5lr IVCONT .Q10H [facility] Metoprolol Tartrate 25 mg 10/18/20 21:00 10/24/20 09:34 Metoprolol Tartrate 25 Mg Tablet PO Not Given BID [facility] Protocol Ondansetron HCl 4 mg 10/18/20 15:44 Ondansetron Hcl 4 Mg/2 Ml Vial IVPUSH Q8H PRN Nausea and Vomiting Senna 17.2 mg 10/18/20 21:00 10/23/20 19:59 Sennosides 8.6 Mg Tablet PO Not Given BEDTIME [facility] Sodium Chloride 3 ml 10/18/20 16:00 10/24/20 07:42 0.9 % Sodium Chloride Flush 3 Ml Syringe IVFLUSH Not Given QSHIFT [facility] Time Spent With Patient Time: Total time spent is greater than 50% in coordination of care (as documented) at patient's floor/unit and/or counseling patient: Time with patient: less than 15 minutes Subjective Subjective Date of Service: 10/24/20 Interval history: Postop day 3 status post left hip hemiarthroplasty No overnight events Resting in bed has minimal discomfort Physical Exam Vital Signs: Vital Signs: Last Vital Signs Temp 98.3 F 10/24/20 07:46 Pulse 57 10/24/20 07:46 Resp 18 10/24/20 07:46 BP 182/80 H 10/24/20 07:46 Pulse Ox 95 10/24/20 07:46 Body Mass Index 24.4 Extrem: Other: Left hip bandage intact. No erythema or swelling. Sensation intact. Procedures Date of Service Date of Service: 10/24/20 Quality Stroke Does the patient have a stroke diagnosis?: No VTE Prior VTE?: No VTE Risk Level:: Medical - moderate - high VTE Device Contraindication: N/A - Device Ordered VTE Drug Contraindication: Treatment Not Indicated
--- NOTE | 2020-10-24 11:36 | MHC.CM.PN ---
ALTAF PARKER ON CABOT UPDATED IN [employer]. PATIENT IS STILL NPO COUSIN [place] ([phone]) IS AWARE
[2020-10-24 11:50] VITALS: BP 159/68; PULSE 60; RESP 17; TEMP 36.4; O2SAT 100
--- NOTE | 2020-10-24 11:51 | PC.NURSE ---
pt was seen by speech therapy and remains NPO, also pt had [place] catheter applied for incontinence of urine, frequent linen changes with wet skin. pt tolerated well and is resting quietly
[2020-10-24] MEDS: Dextrose 5 % 1,000 ML 100 ML IVCONT ×2 (12:20→21:42)
--- NOTE | 2020-10-24 12:22 | MHC.SL.DTX ---
Pre-Treatment Diet: NPO Changes made to current diet?: No Dysphasia Diet Status: No Change Liquid Consistency and Strategies: Liquid Intake Recommendation: NPO Solid Food Consistency: Dietary Recommendations: NPO Oral Medication Intake: NPO Supervision While Eating and/Drinking: PO with RN BUILDING Level of Impact on: Daily activities: Severe Interpersonal interactions: Severe Education: None Employment: None Community: Moderate Prognosis for Improvement: Guarded Recommendation for Speech: Inpatient Speech Therapy Modified Barium Swallow Study - Inpatient Modified Barium Swallow Study - Outpatient Comment: Recommend inpt speech therapy and MBSS to determine safest and least restrictive diet consistency. Additional Comments: Treatment: Pt refused MBSS yesterday afternoon, stating that he would not drink barium. Pt was seen this morning for PO trials. Pt repositioned upright at 90 degrees for PO intake. Pt with hiccups. Pt given trace amount of water via tsp. Multiple swallows per bolus, incomplete laryngeal elevation, and delayed swallow were noted upon palpation. Pt immediately began to cough. Pt expelled thick phlegm and requested additional sip of water. The same observations were made with subsequent sip via controlled cup sip. A coughing fit occurred in which pt was gasping for air. More thick phlegm was expelled. PO trials were discontinued for pt's safety. Assessment: [employer] Clinican/Clinical Fellow: No Supervisory Statement: I have reviewed and agree with the student/clinical fellow's documentation: N/A Speech Language Pathologist: Marleen Bennett M.A. [facility]-RN BUILDING
--- NOTE | 2020-10-24 14:21 | MHC.CLN ---
NUTRITION PATIENT IS CURRENTLY NPO. IF NG TUBE FEEDING STARTED, RD RECOMMENDS: OSMOLITE 1.5 AT 65 ML MAX GOAL RATE WITH 240 ML FREE WATER FLUSH Q SHIFT. PROVIDES: 1560 ML FORMULA, 2340 KCAL (28.7 KCAL/KG), 97.8 G PROTEIN (1.2 G/KG), FREE WATER FROM FORMULA AND FLUSH 1908 ML (23.4 ML/KG). WATER CALCULATED BASED ON DX CHF. START RATE OF OSMOLITE 1.5 AT 20 ML/HOUR, INCREASE BY 10 ML OVER 4 HOURS TO MAX RATE OF 65 ML. AT RISK FOR REFEEDING DUE TO NPO X 3 DAYS AND POOR INTAKE REPORTED. MONITOR TOLERANCE, RESIDUALS AND LYTES.
--- NOTE | 2020-10-24 14:42 | PC.NURSE ---
approached pt about NG tube, he states he does not want the tube at this time and wants to know the reason for need. Text to MD for patient update, awaiting response
[2020-10-24 15:48] LABS: Magnesium 1.9 mg/dL (1.6-2.6)
[2020-10-24 15:49] LABS: Phosphorus 2.3 mg/dL (2.7-4.5)
--- NOTE | 2020-10-24 16:15 | PC.NURSE ---
Patient has stage 2 pressure ulcer on buttocks, mid/right back and coccyx. Triad applied covered with foam. A [place] cath was applied due to lack of movement from left hip surgery. Patient incontinent at times.
--- NOTE | 2020-10-24 16:59 | HO.MIDLINE ---
PICC Line Insertion MIDLINE INSERTION Diagnosis: SWALLOWING PROBLEMS Indication: NEEDS IV FLUIDS Pertinent Labs: REVIEWED Technique: Using sterile technique including cap and mask, glove and drape, the RIGHT arm was prepped and draped in the usual sterile fashion of full barrier technique with CHG. Using ultrasound guidance, BRACHIAL vein access was obtained ON FIRST ATTEMPT BY THIS RN; ONE UNSUCCESSFUL ATTEMPT BY RN NATASHA Liu, SO TOTAL x2 ATTEMPTS. A SINGLE LUMEN, NON-PASV, (20G x 8CM) MIDLINE was positioned. The procedure was performed in [facility]. Ultrasound was used to document vein patency and for needle entry. A formal ultrasound picture was recorded. Vascular Pest Control Service Representative has released the line for use and it is currently dressed with a StatLock, Tegaderm, and CHG disc. Verification has been performed for blood return and line patency. Arm Circumference: 22 CM Equipment: [employer] POWERGLIDE PRO Catheter Type: SINGLE LUMEN, NON-PASV, (20G X 8CM) Lot #: [id number]
[2020-10-24 17:13] VITALS: BP 182/70; PULSE 55; RESP 18; TEMP 36.4; O2SAT 99
[2020-10-24 19:51] VITALS: BP 177/68; PULSE 54; RESP 12; TEMP 36.3; O2SAT 97
[2020-10-25] VITALS (7 sets, daily range): BP systolic 141–193; BP diastolic 67–92; PULSE 60–68; RESP 16–18; TEMP 36.6–37.3; O2SAT 96–98; BMI 19.7
[2020-10-25 07:02] LABS: Hematocrit 35.2 % (42-52); Hemoglobin 11.3 g/dl (14.0-18.0); Mean Corpuscular HGB Conc 32.1 g/dl (31.0-36.0); Mean Corpuscular Hemoglobin 30.6 pg (27.0-33.0); Mean Corpuscular Volume 95.4 fL (80-98); Mean Platelet Volume 10.3 fL (9.4-12.4); Platelet Count 264 X10*3/uL (160-400); Red Blood Count 3.69 X10*6/uL (4.60-5.80); Red Cell Distribution Width 12.7 % (11.0-16.0); White Blood Count 7.1 X10*3/uL (4.8-10.8)
[2020-10-25 07:45] LABS: Anion Gap 10 (12-20); Blood Urea Nitrogen 17 mg/dL (9-16); Calcium 8.2 mg/dL (8.4-10.2); Carbon Dioxide 34 mmol/L (22-29); Chloride 102 mmol/L (96-108); Creatinine Clr Calc Pharmacy 75.9; Estimated Glomerular Filt Rate > 60; Glucose Random 145 mg/dL (60-115); Potassium 3.3 mmol/L (3.3-5.1); Sodium 143 mmol/L (135-145)
[2020-10-25 08:00] LABS: Magnesium 1.7 mg/dL (1.6-2.6); Phosphorus 2.6 mg/dL (2.7-4.5); Triglycerides 95 mg/dL
[2020-10-25 08:06] LABS: MANUAL DIFF FLAG NO
[2020-10-25 08:08] LABS: Basophils Percent Auto 0.1 % (0-2); Eosinophils Absolute Auto 0.1 X10*3/uL (0.0-0.4); Eosinophils Percent Auto 1.2 % (0-4); Hematocrit 36.7 % (42-52); Hemoglobin 11.9 g/dl (14.0-18.0); Imm Gran Pct Auto 1.3 % (0.0-0.4); Lymphocytes Absolute Auto 0.6 X10*3/uL (1.2-4.9); Lymphocytes Percent Auto 8.2 % (20-40); Mean Corpuscular HGB Conc 32.4 g/dl (31.0-36.0); Mean Corpuscular Hemoglobin 31.1 pg (27.0-33.0); Mean Corpuscular Volume 95.8 fL (80-98); Mean Platelet Volume 10.2 fL (9.4-12.4); Monocytes Absolute Auto 0.8 X10*3/uL (0.1-1.2); Monocytes Percent Auto 10.3 % (2-11); Neutrophils Absolute Auto 6.1 X10*3/uL (2.0-8.3); Neutrophils Percent Auto 78.9 % (45-73); Platelet Count 266 X10*3/uL (160-400); Red Blood Count 3.83 X10*6/uL (4.60-5.80); Red Cell Distribution Width 12.8 % (11.0-16.0); White Blood Count 7.7 X10*3/uL (4.8-10.8)
[2020-10-25 08:16] LABS: INTERNATIONAL NORM RATIO 1.2 (0.9-1.1); Prothrombin Time 13.7 SEC (9.9-13.0)
[2020-10-25 08:26] LABS: Glucose, Whole Blood 116 mg/dL (60-115)
[2020-10-25] MEDS: Amiodarone HCL 200 MG TABLET PO (08:38)
[2020-10-25] MEDS: Metoprolol Tartrate 25 MG TABLET PO ×2 (08:38→20:55)
[2020-10-25] MEDS: Docusate Sodium 100 MG CAPSULE PO (08:38)
[2020-10-25] MEDS: Apixaban 5 MG TABLET PO ×2 (08:38→20:54)
[2020-10-25] MEDS: Dextrose 5 % 1,000 ML 100 ML IVCONT ×2 (08:39→17:39)
--- NOTE | 2020-10-25 09:07 | PM.PNORT ---
Progress Note: A&P Assessment and plan (1) Status post hip hemiarthroplasty: Status: Acute Assessment and Plan: WBAT with PT po pain control chemo and mechano prophylaxis d/c as per medicine Fall Risk Details Current Medications: Current Medications Generic Name Dose Route Start Last Admin Trade Name Freq PRN Reason Stop Dose Admin Acetaminophen 650 mg 10/18/20 15:44 10/19/20 20:08 Acetaminophen 325 Mg Tablet PO 650 mg Q6H PRN Administration Pain, Mild (Pain Scale 1-3) Amiodarone HCl 200 mg 10/19/20 09:00 10/25/20 08:38 Amiodarone Hcl 200 Mg Tablet PO 200 mg DAILY KEAGAN Administration Apixaban 5 mg 10/23/20 20:00 10/25/20 08:38 Apixaban 5 Mg Tablet PO 5 mg BID KEAGAN Administration Docusate Sodium 100 mg 10/19/20 09:00 10/25/20 08:38 Docusate Sodium 100 Mg Capsule PO 100 mg DAILY KEAGAN Administration Dextrose 1,000 mls @ 100 mls/hr 10/24/20 12:00 10/25/20 08:39 D5w IVCONT 100 mls/hr .Q10H KEAGAN Administration Metoprolol Tartrate 25 mg 10/18/20 21:00 10/25/20 08:38 Metoprolol Tartrate 25 Mg Tablet PO 25 mg BID KEAGAN Administration Protocol Ondansetron HCl 4 mg 10/18/20 15:44 Ondansetron Hcl 4 Mg/2 Ml Vial IVPUSH Q8H PRN Nausea and Vomiting Senna 17.2 mg 10/18/20 21:00 10/24/20 20:47 Sennosides 8.6 Mg Tablet PO Not Given BEDTIME KEAGAN Sodium Chloride 3 ml 10/18/20 16:00 10/25/20 08:39 0.9 % Sodium Chloride Flush 3 Ml Syringe IVFLUSH Not Given QSHIFT KEAGAN Time Spent With Patient Time: Total time spent is greater than 50% in coordination of care (as documented) at patient's floor/unit and/or counseling patient: Time with patient: less than 15 minutes Subjective Subjective Date of Service: 10/25/20 Principal diagnosis: left femoral neck fracture Interval history: NO complaints Sitting up in bed, comfortable Physical Exam Vital Signs: Vital Signs: Last Vital Signs Temp 97.8 F 10/25/20 08:00 Pulse 65 10/25/20 08:00 Resp 18 10/25/20 08:00 BP 161/73 H 10/25/20 08:00 Pulse Ox 98 10/25/20 08:00 Body Mass Index 19.7 Const: Other: Comfortable and alert Extrem: Other: DP+2. Dressing c/d/i. Firing EHL/TA/GC Procedures Date of Service Date of Service: 10/25/20 Quality Stroke Does the patient have a stroke diagnosis?: No VTE Prior VTE?: No VTE Risk Level:: Medical - moderate - high VTE Device Contraindication: N/A - Device Ordered VTE Drug Contraindication: Treatment Not Indicated
--- NOTE | 2020-10-25 10:09 | HO.PM.IMPN ---
Subjective Subjective Date of Service: 10/25/20 Interval History: F/u on hip fracture, doing well. No confusion, did bed side swallow eval with nurse, did fine with water no cough and tolerating chopped diet. He does not want NGT and IVF feed, he wants to eat and understand there is risk. ROS: not confused, no pain other than with movment, eating ok Physical Exam Vital Signs: Vital Signs: Last Vital Signs Temp 97.8 F 10/25/20 08:00 Pulse 65 10/25/20 08:00 Resp 18 10/25/20 08:00 BP 161/73 H 10/25/20 08:00 Pulse Ox 98 10/25/20 08:00 Body Mass Index 19.7 Const: Other: Constitutional Awake and Alert, oriented to self, place and no he is for hip fracture Neck Supple, No lymphadenopathy Cardiovascular RRR, No M/R/G, S1 S2, No S3 S4, No pedal edema Respiratory Lungs clear, No respiratory distress Gastrointestinal Non tender, Non-distended Skin No rash, surgery site is clean no Neurological, confused, no focal neuro deficit Psychological Appropriate affect Objective Data Current Medications Generic Name Dose Route Start Last Admin Trade Name Freq PRN Reason Stop Dose Admin Acetaminophen 650 mg 10/18/20 15:44 10/19/20 20:08 Acetaminophen 325 Mg Tablet PO 650 mg Q6H PRN Administration Pain, Mild (Pain Scale 1-3) Amiodarone HCl 200 mg 10/19/20 09:00 10/25/20 08:38 Amiodarone Hcl 200 Mg Tablet PO 200 mg DAILY KEAGAN Administration Apixaban 5 mg 10/23/20 20:00 10/25/20 08:38 Apixaban 5 Mg Tablet PO 5 mg BID KEAGAN Administration Docusate Sodium 100 mg 10/19/20 09:00 10/25/20 08:38 Docusate Sodium 100 Mg Capsule PO 100 mg DAILY KEAGAN Administration Dextrose 1,000 mls @ 100 mls/hr 10/24/20 12:00 10/25/20 08:39 D5w IVCONT 100 mls/hr .Q10H KEAGAN Administration Metoprolol Tartrate 25 mg 10/18/20 21:00 10/25/20 08:38 Metoprolol Tartrate 25 Mg Tablet PO 25 mg BID KEAGAN Administration Protocol Ondansetron HCl 4 mg 10/18/20 15:44 Ondansetron Hcl 4 Mg/2 Ml Vial IVPUSH Q8H PRN Nausea and Vomiting Senna 17.2 mg 10/18/20 21:00 10/24/20 20:47 Sennosides 8.6 Mg Tablet PO Not Given BEDTIME [facility] Sodium Chloride 3 ml 10/18/20 16:00 10/25/20 08:39 0.9 % Sodium Chloride Flush 3 Ml Syringe IVFLUSH Not Given QSHIFT [facility] Labs CBC & Chem 7: 10/25/20 07:40 10/25/20 06:26 Labs: Laboratory Results - last 24 hr 10/24/20 10/25/20 10/25/20 08:33 06:26 06:26 WBC 7.1 RBC 3.69 L Hgb 11.3 L Hct 35.2 L MCV 95.4 MCH 30.6 MCHC 32.1 RDW 12.7 Plt Count 264 MPV 10.3 Immature Gran % (Auto) Neut % (Auto) Lymph % (Auto) [place] % (Auto) Eos % (Auto) Baso % (Auto) Lymph # (Auto) [place] # (Auto) Eos # (Auto) Baso # (Auto) Abs Immat Gran (auto) Absolute Neuts (auto) Absolute Nucleated RBC 0.000 Nucleated RBC % (auto) 0.0 PT INR Sodium 143 Potassium 3.3 Chloride 102 Carbon Dioxide 34 H Anion Gap 10 L BUN 17 H Creatinine 0.78 Estim Creat Clear Calc 75.9 Estimated GFR > 60 POC Glucose Random Glucose 145 H Calcium 8.2 L Phosphorus 2.3 L 2.6 L Magnesium 1.9 1.7 Triglycerides 95 10/25/20 10/25/20 10/25/20 07:40 07:40 08:15 WBC 7.7 RBC 3.83 L Hgb 11.9 L Hct 36.7 L MCV 95.8 MCH 31.1 MCHC 32.4 RDW 12.8 Plt Count 266 MPV 10.2 Immature Gran % (Auto) 1.3 H Neut % (Auto) 78.9 H Lymph % (Auto) 8.2 L [place] % (Auto) 10.3 Eos % (Auto) 1.2 Baso % (Auto) 0.1 Lymph # (Auto) 0.6 L [place] # (Auto) 0.8 Eos # (Auto) 0.1 Baso # (Auto) 0.0 Abs Immat Gran (auto) 0.10 H Absolute Neuts (auto) 6.1 Absolute Nucleated RBC 0.000 Nucleated RBC % (auto) 0.0 PT 13.7 H INR 1.2 H Sodium Potassium Chloride Carbon Dioxide Anion Gap BUN Creatinine Estim Creat Clear Calc Estimated GFR POC Glucose 116 H Random Glucose Calcium Phosphorus Magnesium Triglycerides Quality Stroke Does the patient have a stroke diagnosis?: No VTE Prior VTE?: No VTE Risk Level:: Medical - moderate - high VTE Device Contraindication: N/A - Device Ordered VTE Drug Contraindication: Treatment Not Indicated Assessment and Plan (1) Rhabdomyolysis: Status: Acute (2) Acute kidney injury superimposed on chronic kidney disease: Status: Acute (3) Fracture of femoral neck, left: Status: Acute (4) PAF (paroxysmal atrial fibrillation): Status: Acute (5) Cardiomyopathy: Status: Acute Assessment and Plan: 85-year-old male with a history cardiomyopathy, atrial fibrillation on Eliquis, hypertension brought to the emergency department after a fall found to have left hip fracture, lactic acidosis, LAUREN, elevated CPK Left femoral neck fracture s/p ORIF 10/21, no issues continue post management, pain management, PT/OT Started on Eliquis for DVT prophylaxis Rhabdo CPK down from 1793 to 830 as of 10/20 LAUREN--resolved with IVF Elevated toponin No chest pain, no acute ischemic changes on EKG,Likely stress related from fall/fracture, seen by cardiology no further change in medical management, follow echo Hypernatremia--d/t dehydration, resolved SIRS Pt mes criteria with RR 24, WBC 13.6, Lactic acid elevated at 4 on arrival now resolved Leukocytosis resolved and seems chronic CXR, UA negative No evidence of infection/sepsis. Reactive in setting of fall/hip fracture. 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 Stop IVF if eating and drinking on his own Dysphagia--He has been NPO, but seem better this morning, did fine with bedside swallow with water and food, took meds with issues. Chopped diet. Aspiration precaution, he doesn't want NGT and No TPN at this time. Hicups, resolved. confusion, likely metabolic encephalopathy of multifactorial, hypernatremia, dehydration and change in scnenery and underlying cognitive impairment--resolved. To rehab by tomorrow DELMAR emmanuel on hold for surgery Code status - MOLST on file DNR/DNI
[2020-10-25 11:41] LABS: Glucose, Whole Blood 140 mg/dL (60-115)
[2020-10-25] MEDS: amLODIPine Besylate 2.5 MG TABLET PO (17:11)
[2020-10-25 17:12] LABS: Glucose, Whole Blood 132 mg/dL (60-115)
[2020-10-25 20:15] LABS: Glucose, Whole Blood 160 mg/dL (60-115)
[2020-10-25] MEDS: Sennosides 8.6 MG TABLET 17.2 MG PO (20:55)
[2020-10-26] VITALS (9 sets, daily range): BP systolic 102–189; BP diastolic 62–91; PULSE 56–106; RESP 16–20; TEMP 36.2–38; O2SAT 88–99; BMI 19.7
[2020-10-26] MEDS: Dextrose 5 % 1,000 ML 100 ML IVCONT ×2 (04:04→14:47)
[2020-10-26] MEDS: amLODIPine Besylate 2.5 MG TABLET PO (06:14)
[2020-10-26] MEDS: Amiodarone HCL 200 MG TABLET PO (06:14)
[2020-10-26] MEDS: Apixaban 5 MG TABLET PO ×2 (06:14→20:24)
[2020-10-26 07:25] LABS: Anion Gap 12 (12-20); Blood Urea Nitrogen 15 mg/dL (9-16); Carbon Dioxide 31 mmol/L (22-29); Chloride 95 mmol/L (96-108); Estimated Glomerular Filt Rate > 60; Glucose Random 126 mg/dL (60-115); Magnesium 1.7 mg/dL (1.6-2.6); Phosphorus 2.5 mg/dL (2.7-4.5); Potassium 3.5 mmol/L (3.3-5.1); Sodium 134 mmol/L (135-145)
[2020-10-26 07:49] LABS: Glucose, Whole Blood 130 mg/dL (60-115)
[2020-10-26] MEDS: Docusate Sodium 100 MG CAPSULE PO (09:24)
[2020-10-26] MEDS: Metoprolol Tartrate 25 MG TABLET PO ×2 (09:24→20:24)
[2020-10-26] MEDS: 0.9 % Sodium Chloride Flush 3 ML SYRINGE IVFLUSH ×2 (09:25→20:26)
--- NOTE | 2020-10-26 09:51 | MHC.CM.PN ---
CM INFORMED PT IS MEDICALLY CLEARED FOR DC. PT WILL BE GOING TO SNF USING HIS [facility] BENEFITS. SNF UNABLE TO OBTAIN AUTH ON THE WEEKEND. PT WILL DISCHARGE TO LTC AT A SNF TOMORROW, 10/27/20
--- NOTE | 2020-10-26 10:06 | HO.PM.IMPN ---
Subjective Subjective Date of Service: 10/26/20 Interval History: f/u on hip fracture, no new issues, ROS: not confused, no pain other than with movment, eating ok Physical Exam Vital Signs: Vital Signs: Last Vital Signs Temp 97.1 F 10/26/20 08:00 Pulse 61 10/26/20 09:24 Resp 17 10/26/20 08:00 BP 149/72 H 10/26/20 09:24 Pulse Ox 98 10/26/20 08:00 Body Mass Index 19.7 Const: Other: Constitutional Awake and Alert, oriented to self, place and aware he is here d/t hip fracture Neck Supple, No lymphadenopathy Cardiovascular RRR, No M/R/G, S1 S2, No S3 S4, No pedal edema Respiratory Lungs clear, No respiratory distress Gastrointestinal Non tender, Non-distended Skin No rash, surgery site is clean no bleeding Neurological, confused, no focal neuro deficit Psychological Appropriate affect Objective Data Current Medications Generic Name Dose Route Start Last Admin Trade Name Freq PRN Reason Stop Dose Admin Acetaminophen 650 mg 10/18/20 15:44 10/19/20 20:08 Acetaminophen 325 Mg Tablet PO 650 mg Q6H PRN Administration Pain, Mild (Pain Scale 1-3) Amiodarone HCl 200 mg 10/19/20 09:00 10/26/20 06:14 Amiodarone Hcl 200 Mg Tablet PO 200 mg DAILY KEAGAN Administration Amlodipine Besylate 2.5 mg 10/25/20 16:25 10/26/20 06:14 Amlodipine Besylate 2.5 Mg Tablet PO 2.5 mg DAILY KEAGAN Administration Protocol Apixaban 5 mg 10/23/20 20:00 10/26/20 06:14 Apixaban 5 Mg Tablet PO 5 mg BID EKAGAN Administration Docusate Sodium 100 mg 10/19/20 09:00 10/26/20 09:24 Docusate Sodium 100 Mg Capsule PO 100 mg DAILY KEAGAN Administration Dextrose 1,000 mls @ 100 mls/hr 10/24/20 12:00 10/26/20 04:04 D5w IVCONT 100 mls/hr .Q10H KEAGAN Administration Metoprolol Tartrate 25 mg 10/18/20 21:00 10/26/20 09:24 Metoprolol Tartrate 25 Mg Tablet PO 25 mg BID KEAGAN Administration Protocol Ondansetron HCl 4 mg 10/18/20 15:44 Ondansetron Hcl 4 Mg/2 Ml Vial IVPUSH Q8H PRN Nausea and Vomiting Senna 17.2 mg 10/18/20 21:00 10/25/20 20:55 Sennosides 8.6 Mg Tablet PO 17.2 mg BEDTIME KEAGAN Administration Sodium Chloride 3 ml 10/18/20 16:00 10/26/20 09:25 0.9 % Sodium Chloride Flush 3 Ml Syringe IVFLUSH 3 ml QSHIFT KEAGAN Administration Labs CBC & Chem 7: 10/25/20 07:40 10/26/20 06:36 Labs: Laboratory Results - last 24 hr 10/25/20 10/25/20 10/25/20 11:28 17:00 19:55 Sodium Potassium Chloride Carbon Dioxide Anion Gap BUN Creatinine Estim Creat Clear Calc Estimated GFR POC Glucose 140 H 132 H 160 H Random Glucose Calcium Phosphorus Magnesium 10/26/20 10/26/20 06:36 07:34 Sodium 134 L Potassium 3.5 Chloride 95 L Carbon Dioxide 31 H Anion Gap 12 BUN 15 Creatinine 0.71 Estim Creat Clear Calc 71.0 Estimated GFR > 60 POC Glucose 130 H Random Glucose 126 H Calcium 8.0 L Phosphorus 2.5 L Magnesium 1.7 Quality Stroke Does the patient have a stroke diagnosis?: No VTE Prior VTE?: No VTE Risk Level:: Medical - moderate - high VTE Device Contraindication: N/A - Device Ordered VTE Drug Contraindication: Treatment Not Indicated Assessment and Plan (1) Failure to thrive: Status: Acute Assessment and Plan: Left femoral neck fracture from mechanical fall. Because he takes Eliquis, surgery had to be delayed and he ultimately underwent left hip ORIF 10/21/[address] Gibbons and is progressing along. 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 PT/OT has worked with him but he will need extensive rehab and therefore needs to go to short term rehab. To follow up with Ortho as stated on instruction. Mild Rhabdo--inital CPK was 1793 and came down 830 and is expected to fully resolved. LAUREN--was mild, Creatinine was 1.46 on admission and now 0.71 after hydration. Elevated toponin No chest pain, no acute ischemic changes on EKG,Likely stress related from fall/fracture. Was seen by cardiology and did not need further work up Hypernatremia--d/t dehydration, resolved. Sodium peaked at 147 on 10/24 and today 134 SIRS--He met criteria with RR 24, WBC 13.6, Lactic acid elevated at 4 on arrival now resolved--there was no sepsis and this was all reactive due to hip fracture. CXR, UA were unremarkable. Atrial fibrillation In normal sinus rhythm, HR has been controlled,continue amiodarone,and metoprolol,. Digoxin discontinued on cardiology advise. 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 Continue Lasix Dysphagia--He had periods of dysphagia following surgery and had to be made NPO on speech recommendation. Modified barium was ordered but patient refused. On 10/25, on bed side swallow eval by nursing and mysel he did fine without showing any sign of aspiration with water or food and tolerated diet entire day. Additional he had become more lucid and did not want NGT for feeding and wanted to eat understaning there is risk of aspiration and therefore even the idea of PPN had to be abandoned. He may have been having issues with swallowing post anesthetic . He is doing Ok with chopped food with thin liquid and feeds himself HTN--Blood has been on higher side and Norvasc has been added to his regimen with better control To rehab tomorrow once authorization obtained
[2020-10-26 11:44] LABS: Glucose, Whole Blood 130 mg/dL (60-115)
--- NOTE | 2020-10-26 13:55 | PM.PNORT ---
Progress Note: A&P Assessment and plan (1) Status post hip hemiarthroplasty: Status: Acute Assessment and Plan: Doing well cont wbat with PT f/u ortho clinic chemoprophylaxis with eliquis Fall Risk Details Current Medications: Current Medications Generic Name Dose Route Start Last Admin Trade Name Freq PRN Reason Stop Dose Admin Acetaminophen 650 mg 10/18/20 15:44 10/19/20 20:08 Acetaminophen 325 Mg Tablet PO 650 mg Q6H PRN Administration Pain, Mild (Pain Scale 1-3) Amiodarone HCl 200 mg 10/19/20 09:00 10/26/20 06:14 Amiodarone Hcl 200 Mg Tablet PO 200 mg DAILY KEAGAN Administration Amlodipine Besylate 2.5 mg 10/25/20 16:25 10/26/20 06:14 Amlodipine Besylate 2.5 Mg Tablet PO 2.5 mg DAILY KAEGAN Administration Protocol Apixaban 5 mg 10/23/20 20:00 10/26/20 06:14 Apixaban 5 Mg Tablet PO 5 mg BID KEAGAN Administration Docusate Sodium 100 mg 10/19/20 09:00 10/26/20 09:24 Docusate Sodium 100 Mg Capsule PO 100 mg DAILY KEAGAN Administration Dextrose 1,000 mls @ 100 mls/hr 10/24/20 12:00 10/26/20 04:04 D5w IVCONT 100 mls/hr .Q10H KEAGAN Administration Metoprolol Tartrate 25 mg 10/18/20 21:00 10/26/20 09:24 Metoprolol Tartrate 25 Mg Tablet PO 25 mg BID KEAGAN Administration Protocol Ondansetron HCl 4 mg 10/18/20 15:44 Ondansetron Hcl 4 Mg/2 Ml Vial IVPUSH Q8H PRN Nausea and Vomiting Senna 17.2 mg 10/18/20 21:00 10/25/20 20:55 Sennosides 8.6 Mg Tablet PO 17.2 mg BEDTIME KEAGAN Administration Sodium Chloride 3 ml 10/18/20 16:00 10/26/20 09:25 0.9 % Sodium Chloride Flush 3 Ml Syringe IVFLUSH 3 ml QSHIFT KEAGAN Administration Time Spent With Patient Time: Total time spent is greater than 50% in coordination of care (as documented) at patient's floor/unit and/or counseling patient: Time with patient: less than 15 minutes Subjective Subjective Date of Service: 10/26/20 Principal diagnosis: left femoral neck fracture Interval history: left femoral neck fracture eating up in bed no compalints Physical Exam Vital Signs: Vital Signs: Last Vital Signs Temp 98.1 F 10/26/20 12:00 Pulse 65 10/26/20 12:00 Resp 16 10/26/20 12:00 BP 164/69 H 10/26/20 12:00 Pulse Ox 99 10/26/20 12:00 Body Mass Index 19.7 Extrem: Other: moving ankles and toes comfortably. No pain with log roll. scant staining on dressing Procedures Date of Service Date of Service: 10/26/20 Quality Stroke Does the patient have a stroke diagnosis?: No VTE Prior VTE?: No VTE Risk Level:: Medical - moderate - high VTE Device Contraindication: N/A - Device Ordered VTE Drug Contraindication: Treatment Not Indicated
[2020-10-26] MEDS: Acetaminophen 325 MG TABLET 650 MG PO (20:25)
[2020-10-26] MEDS: Sennosides 8.6 MG TABLET 17.2 MG PO (20:25)
[2020-10-27] VITALS (7 sets, daily range): BP systolic 122–150; BP diastolic 61–77; PULSE 70–92; RESP 15–18; TEMP 36.4–37.1; O2SAT 92–97
[2020-10-27] MEDS: Dextrose 5 % 1,000 ML 100 ML IVCONT (01:27)
[2020-10-27 06:20] LABS: Anion Gap 11 (12-20); Blood Urea Nitrogen 16 mg/dL (9-16); Calcium 8.1 mg/dL (8.4-10.2); Carbon Dioxide 32 mmol/L (22-29); Chloride 97 mmol/L (96-108); Creatinine Clr Calc Pharmacy 63.8; Estimated Glomerular Filt Rate > 60; Glucose Random 146 mg/dL (60-115); Potassium 3.5 mmol/L (3.3-5.1); Sodium 136 mmol/L (135-145)
[2020-10-27] MEDS: 0.9 % Sodium Chloride Flush 3 ML SYRINGE IVFLUSH ×3 (09:15→23:47)
[2020-10-27] MEDS: Docusate Sodium 100 MG CAPSULE PO (09:15)
[2020-10-27] MEDS: Amiodarone HCL 200 MG TABLET PO (09:15)
[2020-10-27] MEDS: Metoprolol Tartrate 25 MG TABLET PO (09:15)
[2020-10-27] MEDS: amLODIPine Besylate 2.5 MG TABLET PO (09:15)
[2020-10-27] MEDS: Apixaban 5 MG TABLET PO (09:15)
--- NOTE | 2020-10-27 09:44 | MHC.CLN ---
FOLLOW UP PATIENT STARTED ON REGULAR, NDD3 DIET 10/25 PER MD. PATIENT REFUSED NG TUBE FEEDING. PATIENT REPORTED TO THIS DIRECTOR OF PULMONARY UNIT THAT HE ATE SCRAMBLED EGGS AND DRANK COFFEE FOR BREAKFAST. HAS BEEN EATING WITH VARIABLE INTAKE SINCE 10/25. WILL RESTART ENSURE TID AND KIM BID TO PROMOTE WOUND HEALING.
--- NOTE | 2020-10-27 10:11 | P.DS_ITS ---
DS: Providers Provider Date of Service: 10/27/20 Date of admission: 10/18/20 16:24 Date of discharge: October 26, 2020 Primary care physician: Bimal Velez MD Consults: 10/18/20 15:44 Consult to Cardiology Routine Consulting Provider: Cortes Adhikari Reason for consultation: pre op eval; hip fracture Has provider been notified: No Consult to Orthopedics Routine Consulting Provider: Kat Traore Reason for consultation: left hip fx Has provider been notified: No 10/21/20 11:41 Consult to Neurology Routine Consulting Provider: [facility] Reason for consultation: trouble with speech, swallowing DS: Diagnosis Discharge Diagnosis (1) Rhabdomyolysis: Status: Acute (2) Acute kidney injury superimposed on chronic kidney disease: Status: Acute (3) Fracture of femoral neck, left: Status: Acute (4) PAF (paroxysmal atrial fibrillation): Status: Acute (5) Cardiomyopathy: Status: Acute DS: Medications Discharge Medications Home Medications: Home Medications Medication Instructions Recorded Confirmed furosemide 40 mg tablet 20 mg PO DAILY 01/17/20 10/18/20 metoprolol tartrate 1 tab PO BID 10/18/20 10/18/20 potassium chloride 1 tab PO DAILY 10/18/20 10/18/20 Previous Rx's Medication Instructions Recorded amiodarone 200 mg tablet 200 mg PO DAILY #90 tab 02/21/20 apixaban 5 mg tablet 5 mg PO BID #180 cap 06/04/20 digoxin 125 mcg (0.125 mg) tablet 125 mcg PO DAILY #90 cap 08/12/20 oxycodone 5 mg PO Q6H PRN #10 tab 10/26/20 DS: Summary Hospital Course Hospital Course: Chief Complaint: Fall This is an 85-year-old male who was brought to the emergency department by ambulance after a fall. The patient is a poor historian and is unable to describe the details surrounding his fall. He typically has someone check on him daily however that person was not available on Tuesday. His last known well time was sometime on . He thinks he may have fallen on but can not remember for sure or why he fell. This morning a family member came to check on him and found him sitting on a chair in the kitchen. She noticed that he was unable to stand up. He was brought to the ED for evaluation. Imaging studies showed an angulated and displaced left femoral fracture. Lab work was significant for creatinine of 1.46, lactic acid 4.0, BNP 659, troponin 41, and cpk of 1793. At this time the patient denies any chest pain, shortness of breath, palpitations. His pain is adequately controlled. He was given a dose of home morphine for pain control and the decision was made to admit him to the hospital for further management. Given underlying medical comorbidities the decision was made to admit him to the medical service with consultation to orthopedic surgery. Hospital Course: Left femoral neck fracture from mechanical fall. Because he takes Eliquis, surgery had to be delayed and he ultimately underwent left hip ORIF 10/21/[address] Gibbons and is progressing along. 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 PT/OT has worked with him but he will need extensive rehab and therefore needs to go to short term rehab. To follow up with Ortho as stated on instruction. Mild Rhabdo--inital CPK was 1793 and came down 830 and is expected to fully resolved. LAUREN--was mild, Creatinine was 1.46 on admission and now 0.71 after hydration. Elevated toponin No chest pain, no acute ischemic changes on EKG,Likely stress related from fall/fracture. Was seen by cardiology and did not need further work up Hypernatremia--d/t dehydration, resolved. Sodium peaked at 147 on 10/24 and today 134 SIRS--He met criteria with RR 24, WBC 13.6, Lactic acid elevated at 4 on arrival now resolved--there was no sepsis and this was all reactive due to hip fracture. CXR, UA were unremarkable. Atrial fibrillation In normal sinus rhythm, HR has been controlled,continue amiodarone,and metoprolol,. Digoxin discontinued on cardiology advise. 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 Continue Lasix Dysphagia--He had periods of dysphagia following surgery and had to be made NPO on speech recommendation. Modified barium was ordered but patient refused. On 10/25, on bed side swallow eval by nursing and mysel he did fine without showing any sign of aspiration with water or food and tolerated diet entire day. Additional he had become more lucid and did not want NGT for feeding and wanted to eat understaning there is risk of aspiration and therefore even the idea of PPN had to be abandoned. He may have been having issues with swallowing post anesthetic . He is doing Ok with chopped food with thin liquid and feeds himself HTN--Blood has been on higher side and Norvasc has been added to his regimen with better control Time Spent with Patient Time attestation: Total time spent providing and/or coordinating discharge services: Discharge coordination time: Greater than 30 minutes Quality: Stroke Does the patient have a stroke diagnosis?: No Physical Exam Vital Signs: Vital Signs: Selected Entries 10/27/20 08:00 Temperature 97.7 F Pulse Rate 82 Respiratory Rate 18 Blood Pressure 122/61 Pulse Oximetry 94 Oxygen Delivery Me thod Room Air Const: Other: Constitutional Awake and Alert, oriented to self, place and aware he is here d/t hip fracture Neck Supple, No lymphadenopathy Cardiovascular RRR, No M/R/G, S1 S2, No S3 S4, No pedal edema Respiratory Lungs clear, No respiratory distress Gastrointestinal Non tender, Non-distended Skin No rash, surgery site is clean no bleeding Neurological, confused, no focal neuro deficit Psychological Appropriate affect DS: Data Data Completed and Pending Completed studies during hospitalization [Text1]: Pending at discharge 10/21/20 15:41 Surgical [PTH] Routine Labs on day of discharge: Laboratory Results - last 24 hr 10/25/20 10/25/20 10/25/20 11:28 17:00 19:55 Sodium Potassium Chloride Carbon Dioxide Anion Gap BUN Creatinine Estim Creat Clear Calc Estimated GFR POC Glucose 140 H 132 H 160 H Random Glucose Calcium Phosphorus Magnesium 10/26/20 10/26/20 06:36 07:34 Sodium 134 L Potassium 3.5 Chloride 95 L Carbon Dioxide 31 H Anion Gap 12 BUN 15 Creatinine 0.71 Estim Creat Clear Calc 71.0 Estimated GFR > 60 POC Glucose 130 H Random Glucose 126 H Calcium 8.0 L Phosphorus 2.5 L Magnesium 1.7 Discharge Plan Discharge Anticipated Discharge Date/Time: 10/26/20 08:40 Patient Disposition: Xfer SNF Discharge Diagnosis: s/p Left hip Hemiarthroplasty Referrals: [facility] [address] [Outside] - 1 Day (SHORT TERM REHAB S/P LEFT HIP HEMIARTHROPLASTY ) Ashley Wilson PA-C [Physician Alcohol And Drug Counselor] - 2 Weeks Bimal Velez MD [Primary Care Provider] - 1 Week Discharge Medications: New oxycodone 5 mg tablet 5 mg PO Q6H PRN (Reason: pain (scale score 7-10)) Qty: 10 RF: 0 docusate sodium 100 mg Capsule 100 mg PO DAILY Qty: 30 RF: 0 sennosides [Senna Lax] 8.6 mg Tablet 17.2 mg PO BEDTIME Qty: 30 RF: 0 amlodipine [Norvasc] 2.5 mg tablet 2.5 mg PO DAILY Qty: 30 RF: 0 Continued amiodarone 200 mg tablet 200 mg PO DAILY Qty: 90 RF: 1 apixaban [Eliquis] 5 mg tablet 5 mg PO BID Qty: 180 RF: 3 metoprolol tartrate 25 mg tablet 1 tab PO BID RF: 0 potassium chloride 20 mEq tablet extended release 1 tab PO DAILY RF: 0 furosemide 40 mg tablet 20 mg PO DAILY RF: 0 Discontinued digoxin 125 mcg (0.125 mg) tablet 125 mcg PO DAILY Qty: 90 RF: 4 Discharge Orders: Discharge Order (Routine); Ordered 10/26/20 Ordered By: Joey Chavarria Diet: regular diet Activity on Discharge: Use cane or walker Stand Alone Forms: Patient Portal Discharge page Care Plan Goals: Recovery from hip fracture Health Concerns: hip fracture Plan of Treatment: Physical Therapy for hip hemiarthroplasty: posterior precautions, gait training, ROM, strength Limit stair climbing No showering, no tub bath-keep dressing clean, dry and intact Resume Eliquis for DVT ppx Follow up with [facility] in 2 weeks Assessment: See above
[2020-10-27 13:04] LABS: COVID-19 Test Negative (Negative)
--- NOTE | 2020-10-27 13:42 | MHC.CM.PN ---
CM CONTACTED PT'S HCP KASSIE Sen AT 1:10PM REGARDING SNF CHOICES, PER HCP PT WOULD LIKE CM TO CONTACT PT'S COUSIN [facility] REGARDING SNF'S AND POSSIBLE APPEAL OF D/C. SINCE 1:17PM CM HAS ATTEMPTED TO CONTACT PT'S COUSIN [place] SEVERAL TIMES HOWEVER NUMBER ON FILE IS BUSY. CM WILL CONT TO ATTEMPT TO CONTACT [place].
--- NOTE | 2020-10-27 14:03 | MHC.CM.PN ---
Addendum entered by Marleen Owen RN 10/27/20 14:14: CM RECEIVED CALL BACK FROM PT'S COUSIN [place] AT 2:12PM, [facility] IS AWARE PT WILL NOT BE D/C'ING TODAY AND HAS CHOSEN [facility]OND CHOICE FOR SNF. Original Note: PER HOSPITALIST SOB WAS REPORTED, PT WILL HAVE CXR AND FURTHER WORK UP, HCP KASSIE AWARE AND GAVE CM COUSIN [place]'S CELL PHONE #[phone], CM CALLED CELL PHONE AT 2:05PM AND MESSAGE WAS LEFT WITH CM CALL BACK NUMBER. CM WILL CONT TO FOLLOW D/C NEEDS.
[2020-10-27 16:33] LABS: Hematocrit 42.7 % (42-52); Hemoglobin 14.4 g/dl (14.0-18.0); Mean Corpuscular HGB Conc 33.7 g/dl (31.0-36.0); Mean Platelet Volume 9.8 fL (9.4-12.4); Platelet Count 304 X10*3/uL (160-400); Red Blood Count 4.64 X10*6/uL (4.60-5.80); Red Cell Distribution Width 12.8 % (11.0-16.0); White Blood Count 24.4 X10*3/uL (4.8-10.8)
--- NOTE | 2020-10-27 17:36 | P.PNIM_ITS ---
Subjective Subjective Date of Service: 10/28/20 Interval History: Seen in f/u for hip fracture, dysphagia and now may have aspirated. While concern for aspiration raised over the weekend and further testing recommended, patient refused modifed barium, refused NGT for feed and also wanted to eat against risk of aspiration. Today he did demonstrate aspiration while eating and later become more hypoxic with increased oxygen demand. Review of Systems Gen: more frail looking Resp: no sob, no cough CV: no chest, no HIDALGO, no leg edema GI: No n/v, no abd pain Neuro: No confusion Physical Exam Vital Signs: Vital Signs: Last Vital Signs Temp 98.0 F 10/27/20 16:00 Pulse 84 10/27/20 16:00 Resp 18 10/27/20 16:00 BP 131/69 10/27/20 16:00 Pulse Ox 97 10/27/20 16:00 Body Mass Index 19.7 Const: Other: General: AO X 3, no acute distress Resp: CTA bilateral CVS: S1,S2,RRR GI: +BS, NT, no distention Skin: No rash Neuro: motor grossly intact Psych: appropriate affect Objective Data Current Medications Generic Name Dose Route Start Last Admin Trade Name Freq PRN Reason Stop Dose Admin Acetaminophen 650 mg 10/18/20 15:44 10/26/20 20:25 Acetaminophen 325 Mg Tablet PO 650 mg Q6H PRN Administration Pain, Mild (Pain Scale 1-3) Amiodarone HCl 200 mg 10/19/20 09:00 10/27/20 09:15 Amiodarone Hcl 200 Mg Tablet PO 200 mg DAILY KEAGAN Administration Amlodipine Besylate 2.5 mg 10/25/20 16:25 10/27/20 09:15 Amlodipine Besylate 2.5 Mg Tablet PO 2.5 mg DAILY KEAGAN Administration Protocol Apixaban 5 mg 10/23/20 20:00 10/27/20 09:15 Apixaban 5 Mg Tablet PO 5 mg BID KEAGAN Administration Docusate Sodium 100 mg 10/19/20 09:00 10/27/20 09:15 Docusate Sodium 100 Mg Capsule PO 100 mg DAILY KEAGAN Administration Piperacillin Sod/Tazobactam 100 mls @ 200 mls/hr 10/27/20 17:45 Sod 4.5 gm/ Sodium Chloride IV Q6H KEAGAN Metoprolol Tartrate 25 mg 10/18/20 21:00 10/27/20 09:15 Metoprolol Tartrate 25 Mg Tablet PO 25 mg BID KEAGAN Administration Protocol Ondansetron HCl 4 mg 10/18/20 15:44 Ondansetron Hcl 4 Mg/2 Ml Vial IVPUSH Q8H PRN Nausea and Vomiting Senna 17.2 mg 10/18/20 21:00 10/26/20 20:25 Sennosides 8.6 Mg Tablet PO 17.2 mg BEDTIME KEAGAN Administration Sodium Chloride 3 ml 10/18/20 16:00 10/27/20 17:22 0.9 % Sodium Chloride Flush 3 Ml Syringe IVFLUSH 3 ml QSHIFT KEAGAN Administration Labs CBC & Chem 7: 10/28/20 05:20 10/28/20 05:20 Labs: Laboratory Results - last 24 hr 10/27/20 10/27/20 10/27/20 05:35 12:20 16:18 WBC 24.4 H RBC 4.64 D Hgb 14.4 D Hct 42.7 MCV 92.0 MCH 31.0 MCHC 33.7 RDW 12.8 Plt Count 304 MPV 9.8 Absolute Nucleated RBC 0.000 Nucleated RBC % (auto) 0.0 Sodium 136 Potassium 3.5 Chloride 97 Carbon Dioxide 32 H Anion Gap 11 L BUN 16 Creatinine 0.79 Estim Creat Clear Calc 63.8 Estimated GFR > 60 Random Glucose 146 H Calcium 8.1 L COVID-19 (KAMAR) Negative COVID-19 Clin Com See Note Assessment and Plan (1) Aspiration pneumonia: Status: Acute (2) Status post hip hemiarthroplasty: Status: Acute (3) Failure to thrive: Status: Acute (4) Severe protein-calorie malnutrition: Status: Acute Assessment and Plan: 85-year-old male with a history cardiomyopathy, atrial fibrillation on Eliquis, hypertension brought to the emergency department after a fall found to have left hip fracture, lactic acidosis, LAUREN Left femoral neck fracture from mechanical fall. Because he takes Eliquis, surgery had to be delayed and he ultimately underwent left hip ORIF 10/21/[address] Gibbons and is progressing along. 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 PT/OT has worked with him but he will need extensive rehab and therefore needs to go to short term rehab. To follow up with Ortho as stated on instruction. Mild Rhabdo--inital CPK was 1793 and came down 830 and is expected to fully resolved. LAUREN--was mild, Creatinine was 1.46 on admission and now 0.71 after hydration. Elevated toponin No chest pain, no acute ischemic changes on EKG,Likely stress related from fall/fracture. Was seen by cardiology and did not need further work up Hypernatremia--d/t dehydration, resolved. Sodium peaked at 147 on 10/24 and today 134 SIRS--He met criteria with RR 24, WBC 13.6, Lactic acid elevated at 4 on arrival now resolved--there was no sepsis and this was all reactive due to hip fracture. CXR, UA were unremarkable. Atrial fibrillation In normal sinus rhythm, HR has been controlled,continue amiodarone,and metoprolol,. Digoxin discontinued on cardiology advise. 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 Continue Lasix Dysphagia--He had periods of dysphagia following surgery and had to be made NPO on speech recommendation. Modified barium was ordered but patient refused. On 10/25, on bed side swallow eval by nursing and mysel he did fine without showing any sign of aspiration with water or food and tolerated diet entire day. Gustavo tional he had become more lucid and did not want NGT for feeding and wanted to eat understaning there is risk of aspiration and therefore even the idea of PPN had to be abandoned. He may have been having issues with swallowing post anesthetic . He is doing Ok with chopped food with thin liquid and feeds himself New aspiration pneumonia with elevated WBC, patient had refused further testing, refused feeding by NG and wanted to eat and it was communicated that there was risk of aspiration, as stated, and in speaking with proxy also stated that he does not want any heroic treatment and I stated to him that the food will be for comfort and there is risk of aspiration. Given new finding of infitrate on CXR and elevated WBC, will make NPO again. Start Zosyn and discuss furthe with patient and prior work up of MBS vs possible comfort/hospice. Healthcare proxy also stated that patient has been failing for quite sometime now. Check blood cultures and lactic acid. HTN--Blood has been on higher side and Norvasc has been added to his regimen with better control I disucssed with Proxy and they made me aware that he would not want heroic action, no tube fee, they said has has been failing for about 6 months now, they will be in tomorrow to discuss further goals of care including hospice. Quality Stroke Does the patient have a stroke diagnosis?: No VTE Prior VTE?: No VTE Risk Level:: Medical - moderate - high VTE Device Contraindication: N/A - Device Ordered VTE Drug Contraindication: Treatment Not Indicated
[2020-10-27 18:31] LABS: Lactic Acid 1.5 mmol/L (0.5-2.0)
[2020-10-27] MEDS: Piperacillin Sodium/Tazobactam 4.5 GM in 0.9 % Sodium Chloride 100 ML IV (19:27)
[2020-10-27] MEDS: Morphine Sulfate 2 MG/ML CARTRIDGE IVPUSH (23:47)
[2020-10-28] VITALS (7 sets, daily range): BP systolic 123–148; BP diastolic 52–67; PULSE 65–69; RESP 14–20; TEMP 36.4–36.7; O2SAT 69–100
[2020-10-28] MEDS: Piperacillin Sodium/Tazobactam 4.5 GM in 0.9 % Sodium Chloride 100 ML IV ×4 (02:41→19:00)
[2020-10-28 06:06] LABS: Hematocrit 32.8 % (42-52); Hemoglobin 11.1 g/dl (14.0-18.0); Mean Corpuscular HGB Conc 33.8 g/dl (31.0-36.0); Mean Corpuscular Hemoglobin 31.1 pg (27.0-33.0); Mean Corpuscular Volume 91.9 fL (80-98); Platelet Count 265 X10*3/uL (160-400); Red Blood Count 3.57 X10*6/uL (4.60-5.80); Red Cell Distribution Width 12.7 % (11.0-16.0); White Blood Count 14.8 X10*3/uL (4.8-10.8)
[2020-10-28 06:39] LABS: Anion Gap 11 (12-20); Blood Urea Nitrogen 18 mg/dL (9-16); Calcium 7.8 mg/dL (8.4-10.2); Carbon Dioxide 31 mmol/L (22-29); Chloride 98 mmol/L (96-108); Creatinine Clr Calc Pharmacy 64.6; Estimated Glomerular Filt Rate > 60; Glucose Random 108 mg/dL (60-115); Potassium 3.3 mmol/L (3.3-5.1); Sodium 137 mmol/L (135-145)
[2020-10-28] MEDS: Lactated Ringers 1,000 ML 80 ML IVCONT ×2 (08:36→21:10)
[2020-10-28] MEDS: 0.9 % Sodium Chloride Flush 3 ML SYRINGE IVFLUSH (08:36)
--- NOTE | 2020-10-28 10:44 | MHC.SLORD ---
Speech Language Pathology Order Status: Per chart review, pt's chest x-ray revealed aspiration PNA and subsequently pt was made NPO. BRAN MIXER spoke with RN who stated pt's family will be in later today for meeting with MD in regards to plan of care moving forward. RN to message BRAN MIXER if MBSS is recommended.
--- NOTE | 2020-10-28 12:45 | MHC.CM.PN ---
FAMILY (BOTH HCP AGENTS AND [id number], [place]) MET WITH CASE MANAGEMENT FAMILY WOULD LIKE PATIENT TO TRANSFER TO [facility] WITH [facility]. REFERRAL PLACED TO HOSPICE, WHO IS WILLING TO START SERVICES TOMORROW (10/29/20) AT [facility]. [facility] IS CHECKING ON COST OF ROOM AND BOARD. [facility] IS CONTACTING THE FAMILY. HOSPITALIST MADE AWARE.
--- NOTE | 2020-10-28 15:01 | P.PNIM_ITS ---
Subjective Subjective Date of Service: 10/28/20 Interval History: Seen in f/u for hip fracture, dysphagia and now may have aspiration Pneumonia. No event overnight, no hypoxia, 98% on room air. WBC going down Review of Systems Gen: more frail looking Resp: no sob, no cough CV: no chest, no HIDALGO, no leg edema GI: No n/v, no abd pain Neuro: No confusion Physical Exam Vital Signs: Vital Signs: Last Vital Signs Temp 97.6 F 10/28/20 11:52 Pulse 69 10/28/20 11:52 Resp 19 10/28/20 11:52 BP 148/67 H 10/28/20 11:52 Pulse Ox 69 L 10/28/20 11:52 Body Mass Index 19.7 Const: Other: General: AO X 2, no acute distress Resp: rhonchi CVS: S1,S2,RRR GI: +BS, NT, no distention Skin: No rash Neuro: motor grossly intact Psych: appropriate affect Objective Data Current Medications Generic Name Dose Route Start Last Admin Trade Name Ulisesq PRN Reason Stop Dose Admin Acetaminophen 650 mg 10/18/20 15:44 10/26/20 20:25 Acetaminophen 325 Mg Tablet PO 650 mg Q6H PRN Administration Pain, Mild (Pain Scale 1-3) Amiodarone HCl 200 mg 10/19/20 09:00 10/28/20 08:43 Amiodarone Hcl 200 Mg Tablet PO Not Given DAILY [facility] Amlodipine Besylate 2.5 mg 10/25/20 16:25 10/28/20 08:44 Amlodipine Besylate 2.5 Mg Tablet PO Not Given DAILY [facility] Protocol Apixaban 5 mg 10/23/20 20:00 10/28/20 08:44 Apixaban 5 Mg Tablet PO Not Given BID KEAGAN Docusate Sodium 100 mg 10/19/20 09:00 10/28/20 08:45 Docusate Sodium 100 Mg Capsule PO Not Given DAILY [facility] Piperacillin Sod/Tazobactam 100 mls @ 200 mls/hr 10/27/20 17:45 10/28/20 14:39 Sod 4.5 gm/ Sodium Chloride IV Infused Q6H KEAGAN Infusion Lactated Ringer's 1,000 mls @ 80 mls/hr 10/28/20 07:30 10/28/20 08:36 Lr IVCONT 80 mls/hr .[id number] [facility] Administration Metoprolol Tartrate 25 mg 10/18/20 21:00 10/28/20 08:45 Metoprolol Tartrate 25 Mg Tablet PO Not Given BID [facility] Protocol Ondansetron HCl 4 mg 10/18/20 15:44 Ondansetron Hcl 4 Mg/2 Ml Vial IVPUSH Q8H PRN Nausea and Vomiting Senna 17.2 mg 10/18/20 21:00 10/27/20 20:41 Sennosides 8.6 Mg Tablet PO Not Given BEDTIME [facility] Sodium Chloride 3 ml 10/18/20 16:00 10/28/20 08:36 0.9 % Sodium Chloride Flush 3 Ml Syringe IVFLUSH 3 ml QSHIFT [facility] Administration Labs CBC & Chem 7: 10/28/20 05:20 10/28/20 05:20 Labs: Laboratory Results - last 24 hr 10/27/20 10/27/20 10/28/20 16:18 18:06 05:20 WBC 24.4 H 14.8 H RBC 4.64 D 3.57 L D Hgb 14.4 D 11.1 L D Hct 42.7 32.8 L D MCV 92.0 91.9 MCH 31.0 31.1 MCHC 33.7 33.8 RDW 12.8 12.7 Plt Count 304 265 MPV 9.8 10.0 Absolute Nucleated RBC 0.000 0.000 Nucleated RBC % (auto) 0.0 0.0 Sodium Potassium Chloride Carbon Dioxide Anion Gap BUN Creatinine Estim Creat Clear Calc Estimated GFR Random Glucose Lactic Acid 1.5 Calcium 10/28/20 05:20 WBC RBC Hgb Hct MCV MCH MCHC RDW Plt Count MPV Absolute Nucleated RBC Nucleated RBC % (auto) Sodium 137 Potassium 3.3 Chloride 98 Carbon Dioxide 31 H Anion Gap 11 L BUN 18 H Creatinine 0.78 Estim Creat Clear Calc 64.6 Estimated GFR > 60 Random Glucose 108 Lactic Acid Calcium 7.8 L Assessment and Plan (1) Aspiration pneumonia: Status: Acute (2) Status post hip hemiarthroplasty: Status: Acute (3) Failure to thrive: Status: Acute (4) Severe protein-calorie malnutrition: Status: Acute Assessment and Plan: 85-year-old male with a history cardiomyopathy, atrial fibrillation on Eliquis, hypertension brought to the emergency department after a fall found to have left hip fracture, lactic acidosis, LAUREN Left femoral neck fracture from mechanical fall. Because he takes Eliquis, surgery had to be delayed and he ultimately underwent left hip ORIF 10/21/[address] Gibbons and is progressing along. DVT Prophylaxis with Lovenox while NPO and not able to take Eliquis Mild Rhabdo--inital CPK was 1793 and came down 830 and is expected to fully resolved. LAUREN--was mild, Creatinine was 1.46 on admission and now 0.71 after hydration. Elevated toponin No chest pain, no acute ischemic changes on EKG,Likely stress related from fall/fracture. Was seen by cardiology and did not need further work up Hypernatremia--d/t dehydration, resolved. Sodium peaked at 147 on 10/24 and today 134 SIRS-- on admission, resolved but Atrial fibrillation In normal sinus rhythm, HR has been controlled,continue amiodarone,and metoprolo l,. Digoxin discontinued on cardiology advise. 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 Continue Lasix HTN--Blood has been on higher side and Norvasc has been added to his regimen with better control Aspiration pneumonia--clinically doing better, WBC is going down, O2 sat 98 on room currently. he remains at risk for aspiration. I had discussion with family including Edelmira Balbuena who are healthcare proxy and they do not believe that he would want heroic measure, no tube feed, and theyare ok for eating for comfort, accepting aspiration risk. We further discuss overal goals of care and they believe hospice care is apropriate at this time. Case management was present and will make the aproprate referal Quality Stroke Does the patient have a stroke diagnosis?: No VTE Prior VTE?: No VTE Risk Level:: Medical - moderate - high VTE Device Contraindication: N/A - Device Ordered VTE Drug Contraindication: Treatment Not Indicated
[2020-10-28 16:52] LABS: Albumin Level 2.6 g/dL (3.5-5.0); Total Protein 4.5 g/dL (6.5-8.0)
[2020-10-29] MEDS: 0.9 % Sodium Chloride Flush 3 ML SYRINGE IVFLUSH ×2 (01:19→08:01)
[2020-10-29] MEDS: Piperacillin Sodium/Tazobactam 4.5 GM in 0.9 % Sodium Chloride 100 ML IV ×3 (01:19→13:31)
[2020-10-29 04:00] VITALS: BP 143/67; PULSE 63; RESP 14; TEMP 36.6; O2SAT 95
[2020-10-29 08:00] VITALS: BP 158/70; PULSE 66; RESP 17; TEMP 36.6; O2SAT 100
[2020-10-29] MEDS: Lactated Ringers 1,000 ML 80 ML IVCONT (08:01)
--- NOTE | 2020-10-29 10:55 | PM.DS ---
DS: Providers Provider Date of Service: 10/29/20 Date of admission: 10/18/20 16:24 Primary care physician: Bimal Velez MD Consults: 10/18/20 15:44 Consult to Cardiology Routine Consulting Provider: Cortes Adhikari Reason for consultation: pre op eval; hip fracture Has provider been notified: No Consult to Orthopedics Routine Consulting Provider: Kat Traore Reason for consultation: left hip fx Has provider been notified: No 10/21/20 11:41 Consult to Neurology Routine Consulting Provider: [facility] Reason for consultation: trouble with speech, swallowing DS: Diagnosis Discharge Diagnosis (1) Aspiration pneumonia: Status: Acute (2) Status post hip hemiarthroplasty: Status: Acute (3) Failure to thrive: (4) Severe protein-calorie malnutrition: Status: Acute DS: Summary Hospital Course Hospital Course: Chief Complaint: Fall History of present illness This is an 85-year-old male who was brought to the emergency department by ambulance after a fall. The patient is a poor historian and is unable to describe the details surrounding his fall. He typically has someone check on him daily however that person was not available on Tuesday. His last known well time was sometime on . He thinks he may have fallen on but can not remember for sure or why he fell. This morning a family member came to check on him and found him sitting on a chair in the kitchen. She noticed that he was unable to stand up. He was brought to the ED for evaluation. Imaging studies showed an angulated and displaced left femoral fracture. Lab work was significant for creatinine of 1.46, lactic acid 4.0, BNP 659, troponin 41, and cpk of 1793. At this time the patient denies any chest pain, shortness of breath, palpitations. His pain is adequately controlled. He was given a dose of home morphine for pain control and the decision was made to admit him to the hospital for further management. Given underlying medical comorbidities the decision was made to admit him to the medical service with consultation to orthopedic surgery. Hospital Course: Left femoral neck fracture from mechanical fall. Because he takes Eliquis, surgery had to be delayed and he ultimately underwent left hip ORIF 10/21/[address] Gibbons and is progressing along. 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 PT/OT has worked with him but he will need extensive rehab and therefore needs to go to short term rehab. To follow up with Ortho as stated on instruction. Mild Rhabdo--inital CPK was 1793 and came down 830 and is expected to fully resolved. LAUREN--was mild, Creatinine was 1.46 on admission and now 0.78 as of 10/29 after hydration. Elevated toponin No chest pain, no acute ischemic changes on EKG,Likely stress related from fall/fracture. Was seen by cardiology and did not need further work up Hypernatremia--d/t dehydration, resolved. Sodium peaked at 147 on 10/24 and as of 10/28 137 SIRS--He met criteria with RR 24, WBC 13.6, Lactic acid elevated at 4 on arrival now resolved--there was no sepsis and this was all reactive due to hip fracture. CXR, UA were unremarkable. Atrial fibrillation In normal sinus rhythm, HR has been controlled,continue amiodarone,and metoprolol,. Digoxin discontinued on cardiology advise. 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 Continue Lasix Aspiration pneumonia from chronic dysphagia-- Seen on xray from 10/27, WBC was the same day. Was started on IV Zosyn, the next day WBC 14 and hypoxia resolved. Presently O2 100 on 1 liters. Will transition to oral Augmentin for 7 days. Dysphagian and severe protein calory malnutrition--Family health care proxy has state that he has been failing for the last 6 months. While there was concern for aspiration and post operatively was made NPO, patient did want modified barium swallow or to be fed by NG or to be hooked to fluid, he wanted to eat knowing that there is risk of aspiration, an indeed did aspirate and will continue to at risk for aspiration so long as he eats. I had a disucssion with his health care proxies Sree Desir, Yuniel Desir, and Edelmira and discussed goal of care as Radhames has not be lucid all the time and the believe that at this point that hospice care is apropriate and Radhames does not further testing, and definately would not want tube feed and accept comfort feeding know that there is risks of aspiration. HTN--Blood has been on higher side and Norvasc has been added to his regimen with better control Time Spent with Patient Time attestation: Total time spent providing and/or coordinating discharge services: Discharge coordination time: Greater than 30 minutes Quality: Stroke Does the patient have a stroke diagnosis?: No Physical Exam Vital Signs: Vital Signs: Last Vital Signs Temp 97.8 F 10/29/20 08:00 Pulse 66 10/29/20 08:00 Resp 17 10/29/20 08:00 BP 158/70 H 10/29/20 08:00 Pulse Ox 100 10/29/20 08:00 Body Mass Index 19.7 DS: Data Data Completed and Pending Completed studies during hospitalization [Text1]: Pending at discharge 10/21/20 15:41 Surgical [PTH] Routine Labs on day of discharge: Laboratory Results - last 24 hr 10/28/20 05:20 Total Protein 4.5 L D Albumin 2.6 L D Preliminary micro results at discharge 10/27/20 18:06 Blood Culture - Preliminary Blood - Venous No growth after 24 hours. 10/27/20 18:06 Blood Culture - Preliminary Blood - Venous No growth after 24 hours. Discharge Plan Discharge Anticipated Discharge Date/Time: 10/29/20 10:48 Patient Disposition: Xfer SNF Discharge Diagnosis: s/p Left hip Hemiarthroplasty Referrals[facility]] [facility] (SHORT TERM REHAB S/P LEFT HIP HEMIARTHROPLASTY ) Ashley Wilson PA-C [Physician Pickle Cutter] - 2 Weeks Bimal Velez MD [Primary Care Provider] - 1 Week Discharge Medications: New docusate sodium 100 mg Capsule 100 mg PO DAILY Qty: 30 RF: 0 sennosides [Senna Lax] 8.6 mg Tablet 17.2 mg PO BEDTIME Qty: 30 RF: 0 amlodipine [Norvasc] 2.5 mg tablet 2.5 mg PO DAILY Qty: 30 RF: 0 oxycodone 5 mg tablet 5 mg PO Q6H PRN (Reason: pain (scale score 7-10)) Qty: 14 RF: 0 amoxicillin-pot clavulanate [Augmentin] 250-62.5 mg/5 mL suspension for reconstitution 10 ml PO Q8H 5 Days Qty: 150 RF: 0 Continued amiodarone 200 mg tablet 200 mg PO DAILY Qty: 90 RF: 1 apixaban [Eliquis] 5 mg tablet 5 mg PO BID Qty: 180 RF: 3 metoprolol tartrate 25 mg tablet 1 tab PO BID RF: 0 potassium chloride 20 mEq tablet extended release 1 tab PO DAILY RF: 0 furosemide 40 mg tablet 20 mg PO DAILY RF: 0 Discontinued digoxin 125 mcg (0.125 mg) tablet 125 mcg PO DAILY Qty: 90 RF: 4 Discharge Orders: Discharge Order (Routine); Ordered 10/29/20 Ordered By: Joey Chavarria Diet: regular diet Activity on Discharge: Use cane or walker Stand Alone Forms: Patient Portal Discharge page Care Plan Goals: Recovery from hip fracture Health Concerns: hip fracture Plan of Treatment: Physical Therapy for hip hemiarthroplasty: posterior precautions, gait training, ROM, strength Limit stair climbing No showering, no tub bath-keep dressing clean, dry and intact Resume Eliquis for DVT ppx Follow up with [facility] in 2 weeks Hospice care--Please review meds and decide if still apropriate for hospice May eat for comfort, aware of aspiration risk: we recommend the following we recommend the following consistencies with knowledge of risks associated with aspiration: ground/mech (NDD2) for solids. THIN liquids via Kristy free water protocol (frequent oral care, water, black coffee, black tea, ice chips). Meds crushed in puree. [place] aspiration precautions. Assessment: See above Discharge Date/Time: 10/29/20 16:12
--- NOTE | 2020-10-29 11:20 | MHC.CLN ---
FOLLOW UP PATIENT SCHEDULED FOR DISCHARGE TODAY TO FACILITY WITH HOSPICE REFERRAL. DIET CHANGED TO NPO 10/27. PER DISCHARGE NOTE, MAY EAT FOR COMFORT AND IS AWARE OF ASPIRATION RISKS. DOES NOT WANT TUBE FEEDING.
[2020-10-29 11:34] VITALS: BP 172/70; PULSE 63; RESP 16; TEMP 36.7; O2SAT 98
--- NOTE | 2020-10-29 13:00 | MHC.CM.PN ---
TIME CHANGE TO 4 PM FROM [facility] [place] PER REQUEST OF FACILITY [facility], RN, UNIT, HOSPITALIST, AND [facility] [place] ([phone]) AWARE
--- NOTE | 2020-10-29 13:25 | MHC.SLORD ---
Speech Language Pathology Order Status: SKYDIVING INSTRUCTOR saw pt per MD request. Per RN, pt leaving today with hospice care and MD would appreciate a diet to send pt home with. Upon SKYDIVING INSTRUCTOR's arrival, pt had water at bedside and full cup of coughed up phlegm. Pt was coughing as SKYDIVING INSTRUCTOR arrived. SKYDIVING INSTRUCTOR not comfortable giving pt PO due to concerns of safety. The safest recommendation would be NPO due to overt s/s aspiration. As pt is leaving with hospice care, recommend the following consistencies with understanding of risks of aspiration: ground/mech (NDD2) solids, THIN liquids via RAMIRO FREE WATER PROTOCOL (rigid oral care routine, water, ice chips, black coffee, black tea), Meds crushed in puree. [place] aspiration precautions and total supervision. Please contact SKYDIVING INSTRUCTOR if she can be of further assistance.
--- NOTE | 2020-10-29 15:34 | PC.NURSE ---
HOSPITALIST REMOVED MIDLINE AT 1510. REPORT CALLED TO SNF ([facility] [phone]) AT 1534. AWAITING EMS TO TRANSPORT.
== END 2020-10-29 16:12 | disposition skilled nursing facility (03) | DRG 522 ==
LOC: HO.ED 14:03 → HO.EDOVER 16:25 → HO.S3 18:38
PROVIDERS: Hospitalist; Orthopaedic Surgery; Physician Assistant Medical; Admitting Provider Physician Assistant Medical; Emergency Provider Emergency Medicine; PCP Internal Medicine; Visit Provider Internal Medicine
PROC: (CPT 27125; principal; 2020-10-21 12:30)
DX: S72.032A Displaced midcervical fracture of left femur, initial encounter for closed fracture (principal); I13.0 Hypertensive heart and chronic kidney disease with heart failure and stage 1 through stage 4 chronic kidney disease, or unspecified chronic kidney disease; I50.22 Chronic systolic (congestive) heart failure; N17.9 Acute kidney failure, unspecified; E87.2 Acidosis; I42.9 Cardiomyopathy, unspecified; M62.82 Rhabdomyolysis; R65.10 Systemic inflammatory response syndrome (SIRS) of non-infectious origin without acute organ dysfunction; Z88.0 Allergy status to penicillin; I48.0 Paroxysmal atrial fibrillation; W18.30XA Fall on same level, unspecified, initial encounter; Y93.9 Activity, unspecified; Y92.009 Unspecified place in unspecified non-institutional (private) residence as the place of occurrence of the external cause; N18.30 Chronic kidney disease, stage 3 unspecified; G30.9 Alzheimer's disease, unspecified; R06.6 Hiccough; R13.10 Dysphagia, unspecified; F02.80 Dementia in other diseases classified elsewhere, unspecified severity, without behavioral disturbance, psychotic disturbance, mood disturbance, and anxiety; Y99.9 Unspecified external cause status; Z88.2 Allergy status to sulfonamides; Z20.822 Contact with and (suspected) exposure to COVID-19; Z79.01 Long term (current) use of anticoagulants; Z79.899 Other long term (current) drug therapy; Z66 Do not resuscitate
CPT/HCPCS: 36410; 36415; 70450; 71045; 72125; 73502; 73700; 74230; 80048; 80053; 81001; 81003; 82040; 82550; 82947; 83605; 83735; 83880; 84100; 84155; 84478; 84484; 85025; 85027; 85610; 86850; 86900; 86901; 87040; 87086; 87635; 88305; 88311; 92610; 93005; 93306; 97110; 97116; 97162; 97166; 97530; 99024; 99285; C1776; J0690; J0692; J1650; J1940; J2270; J2405; J2543; J3010; P9047

== ENCOUNTER 2020-11-06 07:16 | Outpatient (REF) | payer BC, SELFPAY ==
--- NOTE | ~2020-11-06 | XR_ITS ---
EXAMINATION: XR PELVIS XR HIP, LEFT CLINICAL INFORMATION: Pain COMPARISON: 10/18/2020 TECHNIQUE: AP pelvis and two-view left hip. FINDINGS: The AP acetabular angle is approximately 16 degrees. No acute fracture or dislocation of the left hip is identified. Acetabular and prosthetic components in place. Surgical marquis are present. There is no evidence of acute fracture or diastasis of the pelvis. The right hip joint space is maintained. There is significant degenerative disc disease seen at the L4-L5 and L5-S1 levels. No definite effusion or widening of the sacroiliac joints is appreciated. Prominent vascular calcifications are seen. XR/XR pelvis 1-2V IMPRESSION: Status post left hip arthroplasty with acetabular angle of approximately 16 degrees. No acute fracture or diastasis of the pelvis identified.
--- NOTE | ~2020-11-06 | XR_ITS ---
EXAMINATION: XR PELVIS XR HIP, LEFT CLINICAL INFORMATION: Pain COMPARISON: 10/18/2020 TECHNIQUE: AP pelvis and two-view left hip. FINDINGS: The AP acetabular angle is approximately 16 degrees. No acute fracture or dislocation of the left hip is identified. Acetabular and prosthetic components in place. Surgical marquis are present. There is no evidence of acute fracture or diastasis of the pelvis. The right hip joint space is maintained. There is significant degenerative disc disease seen at the L4-L5 and L5-S1 levels. No definite effusion or widening of the sacroiliac joints is appreciated. Prominent vascular calcifications are seen. XR/XR hip LT min 2V IMPRESSION: Status post left hip arthroplasty with acetabular angle of approximately 16 degrees. No acute fracture or diastasis of the pelvis identified.
== END 2020-11-06 07:17 | disposition home or self-care (01) ==
LOC: HO.HOSX 07:16
PROVIDERS: Visit Provider Physician Assistant
DX: T84.84XA Pain due to internal orthopedic prosthetic devices, implants and grafts, initial encounter (principal); Z96.642 Presence of left artificial hip joint
CPT/HCPCS: 72170; 73502

== ENCOUNTER 2020-11-13 13:57 | Outpatient (RCR) | payer BC, SELFPAY ==
--- NOTE | ~2020-11-13 | XR_ITS ---
EXAMINATION: XR FOOT, LEFT CLINICAL INFORMATION: Left second toe. COMPARISON: None TECHNIQUE: 3 views of the left foot. FINDINGS: Bone alignment is normal. There are lucencies seen in the rylan of the distal phalanges of the second and fifth toes. It is uncertain whether this represents a fracture or is related to mock effect from overlying soft tissues and nail bed. There is a soft tissue defect seen adjacent to the lateral aspect of the fifth MTP joint. There is periosteal reaction of the distal shaft of the fifth metatarsal bone questionable for changes of early osteomyelitis. There is soft tissue arterial calcification. XR/XR foot LT 2V IMPRESSION: Periosteal reaction of the lateral distal shaft of the fifth metatarsal bone questionable for changes of early osteomyelitis. Lucencies in the tops of the distal phalanges of the second and fifth toes, question representing fracture versus moch effect due to overlying soft tissues and nail bed. Soft tissue arterial calcification.
== END 2021-03-05 11:38 | disposition home or self-care (01) ==
LOC: HO.WCC 13:57
PROVIDERS: PCP Internal Medicine; Visit Provider Surgery
DX: I70.245 Atherosclerosis of native arteries of left leg with ulceration of other part of foot (principal); L89.890 Pressure ulcer of other site, unstageable; L89.613 Pressure ulcer of right heel, stage 3; I11.0 Hypertensive heart disease with heart failure; I50.9 Heart failure, unspecified
CPT/HCPCS: 11042; 73620; 87071; 87077; 87186; 87205; 97597; 99213; 99214

== ENCOUNTER 2020-12-12 10:10 | Inpatient (IN) | payer MEDICARE, BC, SELFPAY ==
[2020-12-12] VITALS (7 sets, daily range): BP systolic 123–157; BP diastolic 56–70; PULSE 65–84; RESP 16–20; TEMP 36.9–38.8; O2SAT 96–99; BMI 18.8
--- NOTE | ~2020-12-12 | XR_ITS ---
EXAMINATION: XR foot LT 2V, XR tibia fibula LT 2V CLINICAL INFORMATION: Plantar ulcer. Question osteomyelitis. COMPARISON: 12/05/2020 TECHNIQUE: AP and lateral views of the tibia and fibula. 3 views of the left foot. FINDINGS: There are vascular calcifications consistent with diabetes. The tibia and fibula are intact. There is soft tissue edema but no soft tissue gas or radiopaque foreign body. Diffuse ankle soft tissue swelling. No fracture or dislocation of the left foot. There is soft tissue swelling and vascular calcifications. The location of the plantar ulcer is uncertain. No radiopaque foreign body seen. XR/XR tibia fibula LT 2V IMPRESSION: The location of the plantar ulcer is not readily apparent on x-ray. No osseous destruction or periosteal reaction to suggest a site of osteomyelitis. Consider MRI for further evaluation as clinically indicated. There is diffuse soft tissue edema with medial and lateral ankle soft tissue swelling. There are vascular calcifications consistent with diabetes.
--- NOTE | ~2020-12-12 | CT_ITS ---
EXAMINATION: CT ABDOMEN AND PELVIS WITHOUT IV CONTRAST CLINICAL INFORMATION: Possible solid mass associated with bowel and pelvis on previous CT exam. COMPARISON: 12/12/2020 TECHNIQUE: Multidetector volumetric images were obtained from the superior aspect of the liver through the pubic symphysis following administration of oral contrast. Sagittal and coronal reformatted images were obtained on the technologist's workstation. This CT examination was performed using dose optimization techniques as appropriate, variously including the following: *Automated exposure control *Adjustment of mA and/or kV according to patient size (this includes techniques or standardized protocols for targeted exams where dose is matched to indication/reason for exam; i.e. extremities or head) *Use of iterative reconstruction technique DLP: 487 mGy-cm FINDINGS: LUNG BASES: Again noted are multiple micronodular opacities (tree-in-bud opacities) in the visualized right lower lobe. Small pleural effusions (left larger than right) have increased in size. Passive atelectasis in dependent aspect of each lower lobe. Coronary artery atherosclerotic calcifications. No pericardial effusion. LIVER: The liver has normal size, shape, and attenuation. No evidence of liver mass. GALLBLADDER AND BILIARY TREE: No radiopaque gallstones, wall thickening or pericholecystic fluid. No intrahepatic or extrahepatic bile duct dilatation. PANCREAS: Normal. No edema, pancreatic ductal dilatation or mass. SPLEEN: Normal. ADRENAL GLANDS: Normal. KIDNEYS AND URETERS: No change in urinary tract findings compared to 12/12/2020. BLADDER: Again noted is the trabeculated bladder wall containing multiple diverticula and 0.9 cm calculus of the right posterolateral bladder wall. BOWEL AND PERITONEUM: Stomach is underdistended. No dilated bowel loops. There is extensive fecal material in the colon to the level the rectum. Diverticula of the colon without diverticulitis. There are no masses identified along the bowel avila, especially with regards to small bowel in the pelvis. No abdominal free fluid or pneumoperitoneum. ABDOMINAL WALL: Unremarkable. VASCULATURE: Atherosclerosis of the abdominal aorta without aneurysm. LYMPH NODES: No pathologic sized lymph nodes in the abdomen or pelvis. No inguinal lymphadenopathy. PELVIC VISCERA: Again noted is a large prostate gland that indents the bladder base. The prostate gland measures approximately 5 cm transverse, 4 cm AP. SKELETAL: Bones are diffusely osteopenic. Streak artifact is produced by components of the left hip arthroplasty. Chronic degenerative disc disease of L3-L4, L4-5 and L5-S1. CT/CT abdomen pelvis w con IMPRESSION: * There are no bowel wall masses. No acute inflammatory change or obstruction along the gastrointestinal tract. Finding of prominent fecal material within the colon suggests possibility of constipation. There is colonic diverticulosis without diverticulitis. * Nonobstructing stones of each kidney. * Chronically enlarged prostate gland protrudes into the bladder base. There is likely chronic partial bladder outlet obstruction. Again noted are multiple diverticula of the urinary bladder and a 0.9 cm calculus of the right posterolateral bladder wall. * Small bilateral pleural effusions (left larger than right) have increased in size compared to 12/12/2020. * The multiple micronodular opacities (tree-in-bud opacities) in the right lower lobe are likely from aspiration or infectious bronchiolitis.
--- NOTE | ~2020-12-12 | CT_ITS ---
EXAMINATION: CT HEAD WITHOUT CONTRAST CLINICAL INFORMATION: Fall, trauma COMPARISON: CT had noncontrast 10/21/2020, 10/18/2020, 11/28/2019 TECHNIQUE: Contiguous axial imaging was performed from the skull base to vertex without intravenous administration of contrast. Additional 2-D coronal and sagittal reformatted images are generated on the CT workstation and uploaded to PACS. This CT examination was performed using dose optimization techniques as appropriate, variously including the following: *Automated exposure control *Adjustment of mA and/or kV according to patient size (this includes techniques or standardized protocols for targeted exams where dose is matched to indication/reason for exam; i.e. extremities or head) *Use of iterative reconstruction technique DLP: 722 mGy-cm FINDINGS: There is no intracranial hemorrhage, hematoma, or extra-axial fluid collection. There are atrophic changes with mild prominence of the ventricles, prominence of the cortical sulci and fissures and cisterns, similar to prior exams. There is no hydrocephalus. The solo-white matter differentiation is similar to prior studies. There are some small vessel ischemic changes as previously noted. Mild basal ganglia calcifications again seen. There is no visible acute territorial infarct or mass lesion. The calvarium appears intact. There is no pneumocephalus or orbital emphysema. The visualized sinuses and middle ears and mastoid air cells show no significant mucosal thickening. There are no air-fluid levels. CT/CT head/brain wo con IMPRESSION: No acute intracranial abnormality.
--- NOTE | ~2020-12-12 | XR_ITS ---
EXAMINATION: XR foot LT 2V, XR tibia fibula LT 2V CLINICAL INFORMATION: Plantar ulcer. Question osteomyelitis. COMPARISON: 12/05/2020 TECHNIQUE: AP and lateral views of the tibia and fibula. 3 views of the left foot. FINDINGS: There are vascular calcifications consistent with diabetes. The tibia and fibula are intact. There is soft tissue edema but no soft tissue gas or radiopaque foreign body. Diffuse ankle soft tissue swelling. No fracture or dislocation of the left foot. There is soft tissue swelling and vascular calcifications. The location of the plantar ulcer is uncertain. No radiopaque foreign body seen. XR/XR foot LT 2V IMPRESSION: The location of the plantar ulcer is not readily apparent on x-ray. No osseous destruction or periosteal reaction to suggest a site of osteomyelitis. Consider MRI for further evaluation as clinically indicated. There is diffuse soft tissue edema with medial and lateral ankle soft tissue swelling. There are vascular calcifications consistent with diabetes.
--- NOTE | ~2020-12-12 | CT_ITS ---
EXAMINATION: CT CERVICAL SPINE WITHOUT CONTRAST CLINICAL INFORMATION: Fall, trauma, pain COMPARISON: CT cervical spine 10/18/2020, CT chest 12/12/2020 TECHNIQUE: Multidetector volumetric CT imaging of the cervical spine is performed without contrast in the axial plane. Additional 2D reformatted coronal and sagittal images are generated on the CT workstation and uploaded to PACS. This CT examination was performed using dose optimization techniques as appropriate, variously including the following: *Automated exposure control *Adjustment of mA and/or kV according to patient size (this includes techniques or standardized protocols for targeted exams where dose is matched to indication/reason for exam; i.e. extremities or head) *Use of iterative reconstruction technique DLP: 341 mGy-cm FINDINGS: There is no vertebral compression fracture, fracture line, or prevertebral soft tissue swelling. The craniocervical junction appears normal. The odontoid appears intact. There is straightening and mild reversal cervical lordosis similar to prior CT 10/18/2020. Again, there are degenerative disc changes C3-T1 with multilevel facet degeneration. Again, there is mild spondylolisthesis C3 on C4 and at C7 on T1, likely related to the degenerative changes. There is disc ankylosis again seen C4-C5 with mild retrolisthesis similar to prior study. There is no apical pneumothorax. CT/CT cervical spine wo con IMPRESSION: 1. No acute bony abnormality or prevertebral soft tissue swelling. 2. Multilevel degenerative disc and degenerative facet changes with variable spondylolisthesis or retrolisthesis similar to prior CT 10/18/2020.
--- NOTE | ~2020-12-12 | US_ITS ---
EXAMINATION: US VENOUS ULTRASOUND WITH DOPPLER LOWER EXTREMITY, BILATERAL CLINICAL INFORMATION: Leg swelling COMPARISON: None TECHNIQUE: Ultrasound of the deep veins is performed from the hip to the calf with compression sonography and color and pulse Doppler assessment. Spectral analysis with color-flow imaging is performed. FINDINGS: RIGHT: There is normal venous compression and respiratory variation and augmented flow. The visualized common femoral vein, superficial femoral vein, profunda femoral vein, popliteal vein, and the trifurcation region shows no evidence of deep venous thrombosis. There is no significant popliteal fossa cyst. LEFT: There is normal venous compression and respiratory variation and augmented flow. The visualized common femoral vein, superficial femoral vein, profunda femoral vein, popliteal vein, and the trifurcation region shows no evidence of deep venous thrombosis. There is no significant popliteal fossa cyst. The peroneal veins are not well seen but there were normal as visualized. If the patient's symptoms persist, followup ultrasound in 5 days 7 days might be of value to exclude proximal propagation from a non-visualized calf vein. US/US venous duplex LE IMPRESSION: No DVT demonstrated in the bilateral lower extremity.
--- NOTE | ~2020-12-12 | CT_ITS ---
EXAMINATION: CT CHEST, ABDOMEN AND PELVIS WITH CONTRAST CLINICAL INFORMATION: Pneumonia? Elevated lactic acid. Blood in urine. Kidney stones? Appendicitis? COMPARISON: Chest x-ray earlier today. CT chest 10/12/2019 CT abdomen pelvis 03/06/2008. TECHNIQUE: Multidetector volumetric imaging was performed from the thoracic inlet through the pubic symphysis following the uneventful administration of: Oral contrast: No Intravenous contrast: 100 mL Omnipaque 300 Sagittal and coronal reformatted images were obtained on the technologist workstation. This CT examination was performed using dose optimization techniques as appropriate, variously including the following: *Automated exposure control *Adjustment of mA and/or kV according to patient size (this includes techniques or standardized protocols for targeted exams where dose is matched to indication/reason for exam; i.e. extremities or head) *Use of iterative reconstruction technique FINDINGS: CHEST: LUNG: Bibasilar atelectasis. No focal consolidation or mass. Innumerable tiny groundglass opacity nodules are seen in the right lower lobe with a tree-in-bud configuration suggesting endobronchial spread of infection. MEDIASTINUM: No lymphadenopathy. Normal heart size. Coronary artery calcification. No thoracic aortic aneurysm. The central pulmonary arteries enhance normally. PLEURA: Small bilateral pleural effusions, left greater than right with associated bibasilar atelectasis. No pneumothorax. CHEST WALL/AXILLA: Unremarkable. ABDOMEN/PELVIS: LIVER, GALLBLADDER, AND BILIARY TREE: The liver is normal in size, shape, and attenuation. No focal hepatic lesion or biliary ductal dilatation is present. The gallbladder is unremarkable with no evidence of radiopaque gallstones, gallbladder wall thickening, or obvious pericholecystic inflammatory changes. PANCREAS: Views atrophy of the pancreas with no mass seen. SPLEEN: Normal size. No focal lesion. ADRENAL GLANDS: Normal; no mass. KIDNEYS AND URETERS: There are areas of bilateral renal cortical thinning. 6 mm left mid renal calculus. 5 mm left lower pole calculus. 7 mm right lower pole renal calculus. 3 mm right lower pole renal calculus. There is prominence of both renal pelvises but no hydroureter or calyceal dilation. There is a simple left renal cyst that requires no imaging follow-up. GASTROINTESTINAL TRACT: There are surgical clips in the region of the epigastrium stomach and small bowel are nondilated. There is a matted appearance of the small bowel in the posterior pelvis and a solid mass cannot be excluded, for example image 59/82 Although the appendix is not definitely seen, there are no right lower quadrant inflammatory changes to suggest acute appendicitis. ABDOMINAL WALL: No significant hernia is appreciated. LYMPHOVASCULAR STRUCTURES: Calcified, tortuous aorta. No retroperitoneal or iliac lymphadenopathy. BLADDER: The bladder wall is irregular and trabeculated. 1 cm calcification in the right pelvis likely represents a bladder calculus. There is a 12 mm calcification in the right pelvis in image 63/82 which may be a phlebolith or less likely within the right ureter. PELVIC VISCERA: Enlarged lobular prostate indents the bladder base OSSEOUS STRUCTURES: Multilevel degenerative changes of the thoracolumbar spine with severe degenerative disc disease at L4-L5 and L5-S1. Lower lumbar facet arthropathy is present. Left total hip arthroplasty. There is fluid tracking from the left hip along the expected course of the left iliopsoas bursa consistent with iliopsoas bursitis. CT/CT abdomen pelvis w con IMPRESSION: Innumerable tiny groundglass opacity nodules are seen in the right lower lobe with a tree-in-bud distribution suggesting endobronchial spread of infection. No dense lobar consolidative pneumonia however. Small bilateral pleural effusions and associated atelectasis. The bladder is markedly irregular and trabeculated. Cystitis could give this appearance. There is a 1 cm calcification along the right posterior bladder wall which could be a bladder calculus. 1.2 cm right pelvic calcification is more likely a phlebolith but could be a calculus as well. There are bilateral renal calculi as well. There is a matted appearance of the small bowel in the posterior pelvis. Elsewhere the small bowel is distended with fluid and gas. A solid mass in this location cannot be excluded. Consider follow-up CT scan with oral contrast to exclude this possibility.
--- NOTE | ~2020-12-12 | XR_ITS ---
EXAMINATION: XR CHEST CLINICAL INFORMATION: Question pneumonia COMPARISON: Previous chest x-rays most recent October 2020 TECHNIQUE: Frontal view of the chest was obtained. FINDINGS: The cardiac and mediastinal contours are normal. No evidence of a pneumonia is seen. There may be mild bronchial wall thickening or bronchial wall calcification, particularly at the lung bases. There is a 1 cm nodule at the left lung base probably representing a nipple shadow. The lungs are otherwise clear. There is no pleural effusion or pneumothorax. Bony structures are unremarkable. XR/XR chest 1V IMPRESSION: No evidence of pneumonia.
[2020-12-12] MEDS: 0.9 % Sodium Chloride 1,000 ML 999 ML IV (10:20)
[2020-12-12] MEDS: Acetaminophen 325 MG TABLET 650 MG PO (10:20)
--- NOTE | 2020-12-12 10:41 | ED_ITS ---
HPI - General Adult General Chief complaint: Weakness Stated complaint: weakness Time Seen by Provider: 12/12/20 12:18 Source: patient Mode of arrival: ambulatory Limitations: no limitations History of Present Illness HPI narrative: Patient presents to ED for evaluation. Patient states this morning he was on the couch downstairs any got up and fell to the ground and his [employer]NER and himself called EMS. Patient denies any abdominal pain, chest pain, shortness of breath, coughing, dizziness, headache, or neck pain. Patient found to be febrile with no specific symptoms. Patient alert oriented x3. Related Data Home Medications Medication Instructions Recorded Confirmed furosemide 40 mg tablet 20 mg PO DAILY 01/17/20 10/18/20 metoprolol tartrate 25 mg tablet 1 tab PO BID 10/18/20 10/18/20 potassium chloride 20 mEq 1 tab PO DAILY 10/18/20 10/18/20 tablet,extended release Previous Rx's Medication Instructions Recorded amiodarone 200 mg tablet 200 mg PO DAILY #90 tab 02/21/20 apixaban 5 mg tablet (Eliquis) 5 mg PO BID #180 cap 06/04/20 amlodipine 2.5 mg tablet (Norvasc) 2.5 mg PO DAILY #30 tab 10/26/20 docusate sodium 100 mg capsule 100 mg PO DAILY #30 cap 10/26/20 sennosides 8.6 mg tablet (Senna 17.2 mg PO BEDTIME #30 tab 10/26/20 Lax) oxycodone 5 mg tablet 5 mg PO Q6H PRN #14 tab 10/27/20 amoxicillin 250 mg-potassium 10 ml PO Q8H 5 Days #150 ml 10/29/20 clavulanate 62.5 mg/5 mL oral suspension (Augmentin) Allergies Allergy/AdvReac Type Severity Reaction Status Date / Time streptomycin [Streptomycin] Allergy Mild UNKNOWN Verified 11/06/20 08:28 Penicillins Allergy Unknown unk Verified 11/06/20 08:28 Sulfa (Sulfonamide Allergy Unknown UNKNOWN Verified 11/06/20 08:28 Antibiotics) [SULFA (SULFONAMIDE ANTIBIOTICS)] Review of Systems Review of Systems: Yes all other systems are reviewed and are negative Constitutional: Constitutional: Reports as per HPI, Reports no additional con stitutional complaints and Reports fever(s) Eyes: Eyes: Reports as per HPI and Reports no additional eye complaints ENT: Reports system reviewed and no additional complaints, except as documented and Reports as per HPI Cardiovascular: Cardiovascular: Reports as per HPI and Reports no additional cardiovascular complaints Respiratory: Respiratory: Reports as per HPI and Reports no additional respiratory complaints Gastrointestinal: Gastrointestinal: Reports as per HPI and Reports no additional gastrointestinal complaints Genitourinary: Genitourinary: Reports no additional male genitourinary comp laints and Reports as per HPI Musculoskeletal: Musculoskeletal: Reports no additional musculoskeletal complaints and Reports as per HPI Neurologic: Reports system reviewed and no additional complaints, except as documented and Reports as per HPI Psychiatric: Psychiatric: Reports no additional psychiatric complaints and Reports as per HPI [facility] Past Medical History Medical History Acute exacerbation of CHF (congestive heart failure) Candidal intertrigo Cardiomyopathy Cardiomyopathy, unspecified Cellulitis CHF (congestive heart failure) Failure to thrive HTN (hypertension) HTN (hypertension) PAF (paroxysmal atrial fibrillation) Persistent atrial fibrillation Pressure sore Surgical History Hx of appendectomy Family History Family History Father No problems noted. Mother No problems noted. Social History Social History (Updated 11/06/20 @ 08:32 by Micah Mcdonnell) Household Members: None Housing: House Do you presently have visiting nurse or other home services: No Alcohol intake: never Patient Tobacco Use Status: Never used Tobacco Advance Directives: Yes Advance Directives on File: Yes Advance Directives Date on File: 04/29/20 service: Yes Current occupational status: retired Current occupation: rt handed Physical Exam Vital Signs: Vital Signs: Last Vital Signs Temp 100.7 F H 12/12/20 14:16 Pulse 84 12/12/20 14:16 Resp 20 12/12/20 14:16 BP 157/70 H 12/12/20 14:16 Pulse Ox 98 12/12/20 14:16 Body Mass Index 18.8 Const: General: cooperative, healthy appearing, comfortable, no acute distress, well developed, alert and awake Orientation/consciousness: patient oriented x3 HENMT: Head: Yes normal to inspection, Yes No palpable skull fracture present, Yes normocephalic and Yes atraumatic Eyes: General: appearance normal, both eyes and all related structures Neck: Neck: Yes normal visual inspection, Yes full ROM, Yes no lymphadenopathy, Yes no meningeal signs, Yes trachea midline, Yes supple and No tender Chest: Chest palpation & inspection: normal inspection of the chest and normal palpation of entire chest wall Resp: Effort & Inspection: normal respiratory effort and able to speak in complete sentences Auscultation: clear to auscultation bilaterally Cardio: Jugular venous distension: no JVD Heart sounds: S1 normal heart s ound present and S2 normal heart sound present GI: Inspection: Yes normal to inspection and No abdominal wall ecchymosis Palpation (GI): Soft to palpation, not firm, nontender, no guarding and not rigid : General: No CVA tenderness and Yes no CVA tenderness Back/Spine/Pelvis: Back: no CVA tenderness, No CVA tenderness and No back tenderness Skin: Other: Patient's skin is warm to touch General skin exam: no rashes or lesions noted and elasticity normal Neuro: Other: Negative facial droop. Negative slurred speech. Negative pronator drift. All extremities equal strength 5+. [id number] rapid hand movement intact. General: patient oriented x3, no meningeal signs and CN's II- XI intact bilaterally Cranial nerves: Yes CN's II-XII intact bilaterally Extrem: Upper/lower leg/hip images: 1. Leg is significantly more swollen than the right. Venous stasis changes. Negative for open wounds. Popliteal pulse intact. Ankle/foot/toe images: 1. Clean ulcer. Negative for any erythema, pus d ischarge, foul odor. Pedal pulse intact. Negative for redness Psych: Appearance: grossly normal and well kempt Course Course Course Narrative: Patient febrile will do septic workup. Patient presents alert oriented x3 not in any distress. Neuro exam intact. Reevaluation(s) Reevaluation #1: [place] [id number] with elevated lactic acid. Chest x-ray negative for pneumonia. Urine shows blood but no white blood cell count. Troponin elevated. Will do chest CT and abdominal CT was without contrast. No indication for meningitis. Neck is soft and patient alert oriented x3. Patient can move all extremities and does not have any back pain. Left lower extremity sweats small swollen than right lower extremity, but both positive venous stasis skin color changes. Whole body is warm. Foot and leg x- ray negative for osteomyelitis. Time: 12:46 Reevaluation #2: Patient chest CT showed ground-glass opacity but no obvious pneumonia. Abdominal CT scan shows cystitis with bladder calculus. Patient presently not toxic appearing. Patient states he feels fine. Patient alert oriented x3 much and television. Ultrasound negative for blood clots. Patient to be admitted for sepsis due to pneumonia versus bladder calculus cystitis. Hospice made aware. Patient's 2nd troponin did not increased by 50%. Time: 17:04 Medical Decision Making MDM Narrative Medical decision making narrative: Sepsis. Cystitis bladder scan. Possible pneumonia Lab Data Result diagrams: 12/12/20 11:39 12/12/20 11:39 Labs: Lab Results 12/12/20 12/12/20 12/12/20 Range/Units 11:39 11:39 11:39 WBC 24.6 H (4.8-10.8) X10*3/uL RBC 3.95 L (4.60-5.80) X10*6/uL Hgb 12.3 L (14.0-18.0) g/dl Hct 37.5 L (42-52) % MCV 94.9 (80-98) fL MCH 31.1 (27.0-33.0) pg MCHC 32.8 (31.0-36.0) g/dl RDW 14.0 (11.0-16.0) % Plt Count 207 (160-400) X10*3/uL MPV 10.0 (9.4-12.4) fL Immature Gran % (Auto) 0.9 H (0.0-0.4) % Neut % (Auto) 88.5 H (45-73) % Lymph % (Auto) 5.2 L (20-40) % [place] % (Auto) 5.2 (2-11) % Eos % (Auto) 0.0 (0-4) % Baso % (Auto) 0.2 (0-2) % Lymph # (Auto) 1.3 (1.2-4.9) X10*3/uL [place] # (Auto) 1.3 H (0.1-1.2) X10*3/uL Eos # (Auto) 0.0 (0.0-0.4) X10*3/uL Baso # (Auto) 0.0 (0.0-0.2) X10*3/uL Abs Immat Gran (auto) 0.22 H (0.00-0.03) X10*3/uL Absolute Neuts (auto) 21.8 H (2.0-8.3) X10*3/uL Absolute Nucleated RBC 0.000 (0.0-0.012) X10*3/uL Nucleated RBC % (auto) 0.0 (0.0-0.2) /100WBC Smear Tech's Comments VERIFIED Sodium 139 (135-145) mmol/L Potassium 4.9 D (3.3-5.1) mmol/L Chloride 102 (96-108) mmol/L Carbon Dioxide 27 (22-29) mmol/L Anion Gap 15 (12-20) BUN 33 H D (9-16) mg/dL Creatinine 1.33 (0.5-1.4) mg/dL Estim Creat Clear Calc 36.0 Estimated GFR 51 Random Glucose 83 (60-115) mg/dL Lactic Acid (0.5-2.0) mmol/L Lactic Acid Fup @ 2Hr (0.5-2.0) mmol/L Calcium 9.6 D (8.4-10.2) mg/dL Ferritin 325 H (20-250) ng/mL Total Bilirubin 0.9 (0.0-1.0) mg/dL Direct Bilirubin 0.4 (0.0-0.5) mg/dL AST 15 D (5-37) U/L ALT 12 (0-40) U/L Alkaline Phosphatase 96 D (39-117) U/L Lactate Dehydrogenase 261 (118-273) U/L Troponin I High Sens (<3.5-35.0) ng/L B-Natriuretic Peptide (<100) pg/mL Total Protein 7.3 D (6.5-8.0) g/dL Albumin 4.1 D (3.5-5.0) g/dL Lipase 44 (8-78) U/L Procalcitonin ng/mL Urine Color Urine Appearance Urine pH (5.0-8.0) Ur Specific [place] (1.005-1.025) Urine Protein (NEG-TRACE) MG/DL Urine Glucose (UA) (NEG) MG/DL Urine Ketones (NEG) MG/DL Urine Blood (NEG) Urine Nitrite (NEG) Ur Leukocyte Esterase (NEG) Urine RBC (0) /HPF Urine WBC (0-4) /HPF Ur Squamous Epith Cells /LPF Urine Bacteria /LPF Coronavirus (PCR) (Negative) Influenza Type A (PCR) (Negative) Influenza Type B (PCR) (Negative) RSV RNA Qual (PCR) (Negative) 12/12/20 12/12/20 12/12/20 Range/Units 11:39 11:39 11:39 WBC (4.8-10.8) X10*3/uL RBC (4.60-5.80) X10*6/uL Hgb (14.0-18.0) g/dl Hct (42-52) % MCV (80-98) fL MCH (27.0-33.0) pg MCHC (31.0-36.0) g/dl RDW (11.0-16.0) % Plt Count (160-400) X10*3/uL MPV (9.4-12.4) fL Immature Gran % (Auto) (0.0-0.4) % Neut % (Auto) (45-73) % Lymph % (Auto) (20-40) % [place] % (Auto) (2-11) % Eos % (Auto) (0-4) % Baso % (Auto) (0-2) % Lymph # (Auto) (1.2-4.9) X10*3/uL [place] # (Auto) (0.1-1.2) X10*3/uL Eos # (Auto) (0.0-0.4) X10*3/uL Baso # (Auto) (0.0-0.2) X10*3/uL Abs Immat Gran (auto) (0.00-0.03) X10*3/uL Absolute Neuts (auto) (2.0-8.3) X10*3/uL Absolute Nucleated RBC (0.0-0.012) X10*3/uL Nucleated RBC % (auto) (0.0-0.2) /100WBC Smear Tech's Comments Sodium (135-145) mmol/L Potassium (3.3-5.1) mmol/L Chloride (96-108) mmol/L Carbon Dioxide (22-29) mmol/L Anion Gap (12-20) BUN (9-16) mg/dL Creatinine (0.5-1.4) mg/dL Estim Creat Clear Calc Estimated GFR Random Glucose (60-115) mg/dL Lactic Acid (0.5-2.0) mmol/L Lactic Acid Fup @ 2Hr (0.5-2.0) mmol/L Calcium (8.4-10.2) mg/dL Ferritin (20-250) ng/mL Total Bilirubin (0.0-1.0) mg/dL Direct Bilirubin (0.0-0.5) mg/dL AST (5-37) U/L ALT (0-40) U/L Alkaline Phosphatase (39-117) U/L Lactate Dehydrogenase (118-273) U/L Troponin I High Sens 39.6 H* (<3.5-35.0) ng/L B-Natriuretic Peptide 857 H (<100) pg/mL Total Protein (6.5-8.0) g/dL Albumin (3.5-5.0) g/dL Lipase (8-78) U/L Procalcitonin 0.20 ng/mL Urine Color Urine Appearance Urine pH (5.0-8.0) Ur Specific [place] (1.005-1.025) Urine Protein (NEG-TRACE) MG/DL Urine Glucose (UA) (NEG) MG/DL Urine Ketones (NEG) MG/DL Urine Blood (NEG) Urine Nitrite (NEG) Ur Leukocyte Esterase (NEG) Urine RBC (0) /HPF Urine WBC (0-4) /HPF Ur Squamous Epith Cells /LPF Urine Bacteria /LPF Coronavirus (PCR) (Negative) Influenza Type A (PCR) (Negative) Influenza Type B (PCR) (Negative) RSV RNA Qual (PCR) (Negative) 12/12/20 12/12/20 12/12/20 Range/Units 11:47 11:47 11:50 WBC (4.8-10.8) X10*3/uL RBC (4.60-5.80) X10*6/uL Hgb (14.0-18.0) g/dl Hct (42-52) % MCV (80-98) fL MCH (27.0-33.0) pg MCHC (31.0-36.0) g/dl RDW (11.0-16.0) % Plt Count (160-400) X10*3/uL MPV (9.4-12.4) fL Immature Gran % (Auto) (0.0-0.4) % Neut % (Auto) (45-73) % Lymph % (Auto) (20-40) % [place] % (Auto) (2-11) % Eos % (Auto) (0-4) % Baso % (Auto) (0-2) % Lymph # (Auto) (1.2-4.9) X10*3/uL [place] # (Auto) (0.1-1.2) X10*3/uL Eos # (Auto) (0.0-0.4) X10*3/uL Baso # (Auto) (0.0-0.2) X10*3/uL Abs Immat Gran (auto) (0.00-0.03) X10*3/uL Absolute Neuts (auto) (2.0-8.3) X10*3/uL Absolute Nucleated RBC (0.0-0.012) X10*3/uL Nucleated RBC % (auto) (0.0-0.2) /100WBC Smear Tech's Comments Sodium (135-145) mmol/L Potassium (3.3-5.1) mmol/L Chloride (96-108) mmol/L Carbon Dioxide (22-29) mmol/L Anion Gap (12-20) BUN (9-16) mg/dL Creatinine (0.5-1.4) mg/dL Estim Creat Clear Calc Estimated GFR Random Glucose (60-115) mg/dL Lactic Acid 2.7 H* (0.5-2.0) mmol/L Lactic Acid Fup @ 2Hr (0.5-2.0) mmol/L Calcium (8.4-10.2) mg/dL Ferritin (20-250) ng/mL Total Bilirubin (0.0-1.0) mg/dL Direct Bilirubin (0.0-0.5) mg/dL AST (5-37) U/L ALT (0-40) U/L Alkaline Phosphatase (39-117) U/L Lactate Dehydrogenase (118-273) U/L Troponin I High Sens (<3.5-35.0) ng/L B-Natriuretic Peptide (<100) pg/mL Total Protein (6.5-8.0) g/dL Albumin (3.5-5.0) g/dL Lipase (8-78) U/L Procalcitonin ng/mL Urine Color STRAW Urine Appearance CLEAR Urine pH 5.5 (5.0-8.0) Ur Specific [place] 1.015 (1.005-1.025) Urine Protein NEG (NEG-TRACE) MG/DL Urine Glucose (UA) NEG (NEG) MG/DL Urine Ketones NEG (NEG) MG/DL Urine Blood 3+ H (NEG) Urine Nitrite NEG (NEG) Ur Leukocyte Esterase NEG (NEG) Urine RBC 30-49 H (0) /HPF Urine WBC 0-2 (0-4) /HPF Ur Squamous Epith Cells NONE /LPF Urine Bacteria NONE /LPF Coronavirus (PCR) NEGATIVE (Negative) Influenza Type A (PCR) NEGATIVE (Negative) Influenza Type B (PCR) NEGATIVE (Negative) RSV RNA Qual (PCR) NEGATIVE (Negative) 12/12/20 12/12/20 Range/Units 15:34 15:34 WBC (4.8-10.8) X10*3/uL RBC (4.60-5.80) X10*6/uL Hgb (14.0-18.0) g/dl Hct (42-52) % MCV (80-98) fL MCH (27.0-33.0) pg MCHC (31.0-36.0) g/dl RDW (11.0-16.0) % Plt Count (160-400) X10*3/uL MPV (9.4-12.4) fL Immature Gran % (Auto) (0.0-0.4) % Neut % (Auto) (45-73) % Lymph % (Auto) (20-40) % [place] % (Auto) (2-11) % Eos % (Auto) (0-4) % Baso % (Auto) (0-2) % Lymph # (Auto) (1.2-4.9) X10*3/uL [place] # (Auto) (0.1-1.2) X10*3/uL Eos # (Auto) (0.0-0.4) X10*3/uL Baso # (Auto) (0.0-0.2) X10*3/uL Abs Immat Gran (auto) (0.00-0.03) X10*3/uL Absolute Neuts (auto) (2.0-8.3) X10*3/uL Absolute Nucleated RBC (0.0-0.012) X10*3/uL Nucleated RBC % (auto) (0.0-0.2) /100WBC Smear Tech's Comments Sodium (135-145) mmol/L Potassium (3.3-5.1) mmol/L Chloride (96-108) mmol/L Carbon Dioxide (22-29) mmol/L Anion Gap (12-20) BUN (9-16) mg/dL Creatinine (0.5-1.4) mg/dL Estim Creat Clear Calc Estimated GFR Random Glucose (60-115) mg/dL Lactic Acid (0.5-2.0) mmol/L Lactic Acid Fup @ 2Hr 1.2 (0.5-2.0) mmol/L Calcium (8.4-10.2) mg/dL Ferritin (20-250) ng/mL Total Bilirubin (0.0-1.0) mg/dL Direct Bilirubin (0.0-0.5) mg/dL AST (5-37) U/L ALT (0-40) U/L Alkaline Phosphatase (39-117) U/L Lactate Dehydrogenase (118-273) U/L Troponin I High Sens 52.1 H* (<3.5-35.0) ng/L B-Natriuretic Peptide (<100) pg/mL Total Protein (6.5-8.0) g/dL Albumin (3.5-5.0) g/dL Lipase (8-78) U/L Procalcitonin ng/mL Urine Color Urine Appearance Urine pH (5.0-8.0) Ur Specific [place] (1.005-1.025) Urine Protein (NEG-TRACE) MG/DL Urine Glucose (UA) (NEG) MG/DL Urine Ketones (NEG) MG/DL Urine Blood (NEG) Urine Nitrite (NEG) Ur Leukocyte Esterase (NEG) Urine RBC (0) /HPF Urine WBC (0-4) /HPF Ur Squamous Epith Cells /LPF Urine Bacteria /LPF Coronavirus (PCR) (Negative) Influenza Type A (PCR) (Negative) Influenza Type B (PCR) (Negative) RSV RNA Qual (PCR) (Negative) ECG Data Interpretation: Reticular rate 77. Pr interval 152. QRS 82. QTC 454. Negative STEMI Critical Care Time Critical Care Time Critical Care Time: Yes Total Critical Care Time: 60 Attestation: Sepsis. Antibiotics ordered, 1 bag of fluids, images ordered. Discharge Plan Discharge Clinical Impression: Sepsis, Bladder calculus, Pneumonia Patient Disposition: Admitted As Inpatient
--- NOTE | 2020-12-12 10:45 | ECG_ITS ---
Test Reason : WEAKNESS Blood Pressure : / mmHG Vent. Rate : 077 BPM Atrial Rate : 077 BPM P-R Int : 152 ms QRS Dur : 082 ms QT Int : 402 ms P-R-T Axes : 050 090 252 degrees QTc Int : 454 ms Normal sinus rhythm Rightward axis ST & T wave abnormality, consider inferior ischemia Abnormal ECG When compared with ECG of 18-OCT-2020 11:32, ST now depressed in Inferior leads T wave inversion now evident in Inferior leads Referred By: Malcom Farias Electronically Signed By:BRIDGET BASILIO
[2020-12-12 12:00] LABS: Basophils Percent Auto 0.2 % (0-2); Hematocrit 37.5 % (42-52); Hemoglobin 12.3 g/dl (14.0-18.0); Imm Gran Abs Auto 0.22 X10*3/uL (0.00-0.03); Imm Gran Pct Auto 0.9 % (0.0-0.4); Lymphocytes Absolute Auto 1.3 X10*3/uL (1.2-4.9); Lymphocytes Percent Auto 5.2 % (20-40); MANUAL DIFF FLAG SCAN; Mean Corpuscular HGB Conc 32.8 g/dl (31.0-36.0); Mean Corpuscular Hemoglobin 31.1 pg (27.0-33.0); Mean Corpuscular Volume 94.9 fL (80-98); Monocytes Absolute Auto 1.3 X10*3/uL (0.1-1.2); Monocytes Percent Auto 5.2 % (2-11); Neutrophils Absolute Auto 21.8 X10*3/uL (2.0-8.3); Neutrophils Percent Auto 88.5 % (45-73); Platelet Count 207 X10*3/uL (160-400); Red Blood Count 3.95 X10*6/uL (4.60-5.80); SCAN SMEAR FLAG 1; White Blood Count 24.6 X10*3/uL (4.8-10.8)
[2020-12-12 12:03] LABS: Appearance Urine CLEAR; Color Urine STRAW; Glucose Urine UA NEG (NEG); Leukocyte Esterase Urine NEG (NEG); Nitrite Urine NEG (NEG); PH 5.5 (5.0-8.0); Specific Gravity - Urine 1.015 (1.005-1.025); UACC Culture Trigger NO; Urine Blood 3+ (NEG); Urine Ketones NEG (NEG); Urine Protein NEG (NEG-TRACE)
[2020-12-12 12:18] LABS: RBC Urine 30-49 /HPF (0); WBC Urine 0-2 /HPF (0-4)
[2020-12-12 12:18] LABS: Lactic Acid 2.7 mmol/L (0.5-2.0)
[2020-12-12 12:19] LABS: SLIDE REVIEW VERIFIED
[2020-12-12 12:21] LABS: Lactate Dehydrogenase 261 U/L (118-273)
[2020-12-12 12:23] LABS: Alanine Aminotransferase 12 U/L (0-40); Albumin Level 4.1 g/dL (3.5-5.0); Alkaline Phosphatase 96 U/L (39-117); Anion Gap 15 (12-20); Aspartate Amino Transferase 15 U/L (5-37); Bilirubin Direct 0.4 mg/dL (0.0-0.5); Bilirubin Total 0.9 mg/dL (0.0-1.0); Blood Urea Nitrogen 33 mg/dL (9-16); Calcium 9.6 mg/dL (8.4-10.2); Carbon Dioxide 27 mmol/L (22-29); Chloride 102 mmol/L (96-108); Estimated Glomerular Filt Rate 51; Glucose Random 83 mg/dL (60-115); Lipase 44 U/L (8-78); Potassium 4.9 mmol/L (3.3-5.1); Sodium 139 mmol/L (135-145); Total Protein 7.3 g/dL (6.5-8.0)
[2020-12-12 12:25] LABS: B Type Natriuretic Peptide 857 pg/mL (<100)
[2020-12-12 12:30] LABS: Troponin-I High Sensitivity 39.6 ng/L (<3.5-35.0)
[2020-12-12 12:41] LABS: Ferritin 325 ng/mL (20-250)
[2020-12-12 12:41] LABS: Influenza A PCR NEGATIVE (Negative); Influenza B PCR NEGATIVE (Negative); Resp Syncy Virus RNA Qual PCR NEGATIVE (Negative); SARS COV2 PCR INHOUSE NEGATIVE (Negative)
[2020-12-12] MEDS: cefTRIAXone sodium 1 GM in 0.9 % Sodium Chloride 50 ML IV (12:43)
[2020-12-12 13:56] LABS: Reflex Lactate? Lactic Acid Added
[2020-12-12] MEDS: iohexoL 350 MG/ML 100 ML INFUS..BTL 85 ML IV (15:13)
[2020-12-12 15:54] LABS: ~Lactic Acid-LAB USE ONLY 1.2 mmol/L (0.5-2.0)
[2020-12-12 16:05] LABS: Troponin-I High Sensitivity 52.1 ng/L (<3.5-35.0)
--- NOTE | 2020-12-12 16:19 | MHC.CM.PN ---
CM received a call from [facility] stating that pt was active with their agency and to put a referral into [employer]. CM did put in referral. HCP on file. [facility] on file. Received second call from [facility] stating that called them and said she did not feel she could care for her at home. D/C plan may be STR . Pt admitted to floor. CM to follow for d/c needs.
--- NOTE | 2020-12-12 17:26 | PM.EVENT ---
Event Note Date of Service: 12/12/20 Event Note: the patient was seen and evaluated with NELSON Rutledge. I agree with her note, assessment and plan with the following. An 85 years old male with PMH of CHF, AFib, CKD among others who presented to the hospital after sustaining a fall at home. Patient has baseline dementia and very difficult to get history from him. He reports that over the last few days he has been feeling worse and worse and has no energy but denies having any fever, chills, cough, chest pain, rash, urinary symptom or any change in bowel habit. In the emergency CT scan was concerning for possible aspiration pneumonia. The patient was discharged previously with plan for hospice given history of dysphagia. Aspiration pneumonia Start IV antibiotic of ceftriaxone azithromycin Follow-up blood cultures To discuss with HCP long-term plan and if hospice to be restarted. Rest of evaluations by PA note.
--- NOTE | 2020-12-12 18:06 | PM.IMHP ---
History of Present Illness Date of Service: 12/12/20 Chief Complaint: Weakness This is an 85-year-old male with history of dementia who was brought in from home due to increasing weakness. Patient was admitted to [facility] in October after mechanical fall found to have a hip fracture. At that time he was noted to have aspiration and according to documentation patient declined modified barium swallow. A family meeting was documented and the family decided to allow the patient to eat for comfort knowing the risk of probable aspiration in the future. He was discharged to senior care facility for further management. At his time the patient is awake and alert but due to his dementia his history is limited. The patient himself reports feeling fine with no complaints of any kind. Per EMS he was febrile with a temperature of 101.1 degrees. lab work in the emergency department revealed leukocytosis of 24,000 and elevated lactic acid of 2.7. Urinalysis was not consistent with UTI. Multiple imaging studies were done and CT chest showed possibility of pneumonia probable aspiration. Patient also noted to have erythema and warmth to left lower extremity. He was given a dose Of IV ceftriaxone and a decision was made to admit him for further management. I spoke with his healthcare proxy's Yane who the patient told made to contact as his HCP recently had back surgery. According to Yane of the patient returned home from [facility] 1 week ago. He is being followed at the wound clinic for left lower extremity chronic wound. He was discharged from [facility] at the request of the patient, however the family is now concerned that the patient is unable to care for himself and will likely need to return to senior care facility for probable long-term care. She states that someone went to pick him up for his appointment this morning and he was ?in bad shape? and Dr. Velez told them to call call the ambulance. Review of Systems Review of Systems: ROS not reliable due to dementia. patient denies any symptoms of any kind Yes all other systems are reviewed and are negative Constitutional: Constitutional: Denies chills and Denies fever(s) Cardiovascular: Cardiovascular: Denies chest pain Respiratory: Respiratory: Denies cough Gastrointestinal: Gastrointestinal: Denies abdominal pain [facility] Medical History Acute exacerbation of CHF (congestive heart failure) Candidal intertrigo Cardiomyopathy Cardiomyopathy, unspecified Cellulitis CHF (congestive heart failure) Failure to thrive HTN (hypertension) HTN (hypertension) PAF (paroxysmal atrial fibrillation) Persistent atrial fibrillation Pressure sore Family History Father No problems noted. Mother No problems noted. Surgical History Hx of appendectomy Social History Household Members: None Housing: House Do you presently have visiting nurse or other home services: No Alcohol intake: never Patient Tobacco Use Status: Never used Tobacco Advance Directives: Yes Advance Directives on File: Yes Advance Directives Date on File: 04/29/20 service: Yes Current occupational status: retired Current occupation: rt handed Meds Allergies Allergy/AdvReac Type Severity Reaction Status Date / Time streptomycin [Streptomycin] Allergy Mild UNKNOWN Verified 11/06/20 08:28 Penicillins Allergy Unknown unk Verified 11/06/20 08:28 Sulfa (Sulfonamide Allergy Unknown UNKNOWN Verified 11/06/20 08:28 Antibiotics) [SULFA (SULFONAMIDE ANTIBIOTICS)] Active Medications: Current Medications Generic Name Dose Route Start Last Admin Trade Name Ulisesq PRN Reason Stop Dose Admin Azithromycin 500 mg/ Sodium 250 mls @ 125 mls/hr 12/12/20 18:00 Chloride IV Q24H KEAGAN Home Medications Medication Instructions Recorded Confirmed Last Taken Type furosemide 40 mg tablet 20 mg PO DAILY 01/17/20 10/18/20 Unknown History metoprolol tartrate 25 mg tablet 1 tab PO BID 10/18/20 10/18/20 Unknown History potassium chloride 20 mEq 1 tab PO DAILY 10/18/20 10/18/20 Unknown History tablet,extended release Physical Exam Vital Signs and Narrative: Vital Signs: Last Vital Signs Temp 99.2 F 12/12/20 16:00 Pulse 84 12/12/20 16:00 Resp 20 12/12/20 16:00 BP 148/68 H 12/12/20 16:00 Pulse Ox 99 12/12/20 16:00 Body Mass Index 18.8 Const: General: alert and awake Nutritional Appearance: thin and underweight Eyes: Sclerae: sclerae normal Pupils: Equal, round and reactive pupils present Resp: Effort & Inspection: normal respiratory effort, no respiratory distress and no use of accessory muscles Cardio: Rate: regular rate Rhythm: regular rhythm Skin: Other: Neuro: Cranial nerves: Yes Equal, round and reactive pupils present Results Labs CBC and Chem 7: 12/12/20 11:39 12/12/20 11:39 Labs: Laboratory Results - last 24 hr 12/12/20 12/12/20 12/12/20 11:39 11:39 11:39 MCV 94.9 MCH 31.1 MCHC 32.8 RDW 14.0 Plt Count 207 MPV 10.0 Immature Gran % (Auto) 0.9 H Neut % (Auto) 88.5 H Lymph % (Auto) 5.[address] [place] % (Auto) 5.2 Eos % (Auto) 0.0 Baso % (Auto) 0.2 Lymph # (Auto) 1.3 [place] # (Auto) 1.3 H Eos # (Auto) 0.0 Baso # (Auto) 0.0 Abs Immat Gran (auto) 0.22 H Absolute Neuts (auto) 21.8 H Absolute Nucleated RBC 0.000 Nucleated RBC % (auto) 0.0 Smear Tech's Comments VERIFIED Anion Gap 15 Estim Creat Clear Calc 36.0 Estimated GFR 51 Random Glucose 83 Lactic Acid Lactic Acid Fup @ 2Hr Calcium 9.6 D Ferritin 325 H Total Bilirubin 0.9 Direct Bilirubin 0.4 AST 15 D ALT 12 Alkaline Phosphatase 96 D Lactate Dehydrogenase 261 Troponin I High Sens B-Natriuretic Peptide Total Protein 7.3 D Albumin 4.1 D Lipase 44 Procalcitonin Urine Color Urine Appearance Urine pH Ur Specific [place] Urine Protein Urine Glucose (UA) Urine Ketones Urine Blood Urine Nitrite Ur Leukocyte Esterase Urine RBC Urine WBC Ur Squamous Epith Cells Urine Bacteria Coronavirus (PCR) Influenza Type A (PCR) Influenza Type B (PCR) RSV RNA Qual (PCR) 12/12/20 12/12/20 12/12/20 11:39 11:39 11:39 MCV MCH MCHC RDW Plt Count MPV Immature Gran % (Auto) Neut % (Auto) Lymph % (Auto) [place] % (Auto) Eos % (Auto) Baso % (Auto) Lymph # (Auto) [place] # (Auto) Eos # (Auto) Baso # (Auto) Abs Immat Gran (auto) Absolute Neuts (auto) Absolute Nucleated RBC Nucleated RBC % (auto) Smear Tech's Comments Anion Gap Estim Creat Clear Calc Estimated GFR Random Glucose Lactic Acid Lactic Acid Fup @ 2Hr Calcium Ferritin Total Bilirubin Direct Bilirubin AST ALT Alkaline Phosphatase Lactate Dehydrogenase Troponin I High Sens 39.6 H* B-Natriuretic Peptide 857 H Total Protein Albumin Lipase Procalcitonin 0.20 Urine Color Urine Appearance Urine pH Ur Specific [place] Urine Protein Urine Glucose (UA) Urine Ketones Urine Blood Urine Nitrite Ur Leukocyte Esterase Urine RBC Urine WBC Ur Squamous Epith Cells Urine Bacteria Coronavirus (PCR) Influenza Type A (PCR) Influenza Type B (PCR) RSV RNA Qual (PCR) 12/12/20 12/12/20 12/12/20 11:47 11:47 11:50 MCV MCH MCHC RDW Plt Count MPV Immature Gran % (Auto) Neut % (Auto) Lymph % (Auto) [place] % (Auto) Eos % (Auto) Baso % (Auto) Lymph # (Auto) [place] # (Auto) Eos # (Auto) Baso # (Auto) Abs Immat Gran (auto) Absolute Neuts (auto) Absolute Nucleated RBC Nucleated RBC % (auto) Smear Tech's Comments Anion Gap Estim Creat Clear Calc Estimated GFR Random Glucose Lactic Acid 2.7 H* Lactic Acid Fup @ 2Hr Calcium Ferritin Total Bilirubin Direct Bilirubin AST ALT Alkaline Phosphatase Lactate Dehydrogenase Troponin I High Sens B-Natriuretic Peptide Total Protein Albumin Lipase Procalcitonin Urine Color STRAW Urine Appearance CLEAR Urine pH 5.5 Ur Specific [place] 1.015 Urine Protein NEG Urine Glucose (UA) NEG Urine Ketones NEG Urine Blood 3+ H Urine Nitrite NEG Ur Leukocyte Esterase NEG Urine RBC 30-49 H Urine WBC 0-2 Ur Squamous Epith Cells NONE Urine Bacteria NONE Coronavirus (PCR) NEGATIVE Influenza Type A (PCR) NEGATIVE Influenza Type B (PCR) NEGATIVE RSV RNA Qual (PCR) NEGATIVE 12/12/20 12/12/20 15:34 15:34 MCV MCH MCHC RDW Plt Count MPV Immature Gran % (Auto) Neut % (Auto) Lymph % (Auto) [place] % (Auto) Eos % (Auto) Baso % (Auto) Lymph # (Auto) [place] # (Auto) Eos # (Auto) Baso # (Auto) Abs Immat Gran (auto) Absolute Neuts (auto) Absolute Nucleated RBC Nucleated RBC % (auto) Smear Tech's Comments Anion Gap Estim Creat Clear Calc Estimated GFR Random Glucose Lactic Acid Lactic Acid Fup @ 2Hr 1.2 Calcium Ferritin Total Bilirubin Direct Bilirubin AST ALT Alkaline Phosphatase Lactate Dehydrogenase Troponin I High Sens 52.1 H* B-Natriuretic Peptide Total Protein Albumin Lipase Procalcitonin Urine Color Urine Appearance Urine pH Ur Specific [place] Urine Protein Urine Glucose (UA) Urine Ketones Urine Blood Urine Nitrite Ur Leukocyte Esterase Urine RBC Urine WBC Ur Squamous Epith Cells Urine Bacteria Coronavirus (PCR) Influenza Type A (PCR) Influenza Type B (PCR) RSV RNA Qual (PCR) Imaging Radiologist's Impressions: Impressions Chest X-Ray 12/12/20 10:45 IMPRESSION: No evidence of pneumonia. Abdomen/Pelvis CT 12/12/20 12:42 IMPRESSION: Innumerable tiny groundglass opacity nodules are seen in the right lower lobe with a tree-in-bud distribution suggesting endobronchial spread of infection. No dense lobar consolidative pneumonia however. Small bilateral pleural effusions and associated atelectasis. The bladder is markedly irregular and trabeculated. Cystitis could give this appearance. There is a 1 cm calcification along the right posterior bladder wall which could be a bladder calculus. 1.2 cm right pelvic calcification is more likely a phlebolith but could be a calculus as well. There are bilateral renal calculi as well. There is a matted appearance of the small bowel in the posterior pelvis. Elsewhere the small bowel is distended with fluid and gas. A solid mass in this location cannot be excluded. Consider follow-up CT scan with oral contrast to exclude this possibility. Chest CT 12/12/20 12:42 IMPRESSION: Innumerable tiny groundglass opacity nodules are seen in the right lower lobe with a tree-in-bud distribution suggesting endobronchial spread of infection. No dense lobar consolidative pneumonia however. Small bilateral pleural effusions and associated atelectasis. The bladder is markedly irregular and trabeculated. Cystitis could give this appearance. There is a 1 cm calcification along the right posterior bladder wall which could be a bladder calculus. 1.2 cm right pelvic calcification is more likely a phlebolith but could be a calculus as well. There are bilateral renal calculi as well. There is a matted appearance of the small bowel in the posterior pelvis. Elsewhere the small bowel is distended with fluid and gas. A solid mass in this location cannot be excluded. Consider follow-up CT scan with oral contrast to exclude this possibility. Cervical Spine CT 12/12/20 12:47 IMPRESSION: 1. No acute bony abnormality or prevertebral soft tissue swelling. 2. Multilevel degenerative disc and degenerative facet changes with variable spondylolisthesis or retrolisthesis similar to prior CT 10/18/2020. Head CT 12/12/20 12:47 IMPRESSION: No acute intracranial abnormality. Foot X-Ray 12/12/20 13:14 IMPRESSION: The location of the plantar ulcer is not readily apparent on x-ray. No osseous destruction or periosteal reaction to suggest a site of osteomyelitis. Consider MRI for further evaluation as clinically indicated. There is diffuse soft tissue edema with medial and lateral ankle soft tissue swelling. There are vascular calcifications consistent with diabetes. Tibia/Fibula X-Ray 12/12/20 13:14 IMPRESSION: The location of the plantar ulcer is not readily apparent on x-ray. No osseous destruction or periosteal reaction to suggest a site of osteomyelitis. Consider MRI for further evaluation as clinically indicated. There is diffuse soft tissue edema with medial and lateral ankle soft tissue swelling. There are vascular calcifications consistent with diabetes. Venous Duplex 12/12/20 14:57 IMPRESSION: No DVT demonstrated in the bilateral lower extremity. Assessment and Plan (1) Sepsis: Status: Acute (2) Severe protein-calorie malnutrition: Status: Acute This is an 85-year-old male with history of heart failure with reduced ejection fraction, atrial fibrillation, CKD, recent admission for mechanical fall and hip fracture status post ORIF brought to the hospital due to increasing weakness found to have sepsis Sepsis Possibly related to left lower extremity cellulitis versus aspiration pneumonia Urinalysis not consistent with UTI Lactic acid elevated at 2.7, resolved with IVF Sepsis focused exam completed Follow-up results of blood cultures Continue IV antibiotics to cover both respiratory and skin pathogens Left lower extremity cellulitis/chronic wounds Wound care Above IV antibiotics Possible small-bowel mass No abdominal pain, abdominal exam benign Seen on CT imaging Consider follow-up CT with contrast for further evaluation History of aspiration On previous admission patient declined modified barium swallow, Patient would not want feeding tube according to previous documentation Family decided to allow patient to eat for comfort despite risk for aspiration Mechanically altered diet Speech evaluation Aspiration precautions Severe protein calorie malnutrition. As evidence by BMI 18.8, and loss of subcutaneous fat and muscle mass Will add supplements Med reconciliation pending at the time of admission. Baseline medications will be continued once med reconciliation has been completed dvt ppx - eliquis Code status. MOLST form in chart indicates wishes to be DNR/DNI Attending-Dr. Iverson Quality Stroke Does the patient have a stroke diagnosis?: No VTE Prior VTE?: No VTE Risk Level:: Medical - moderate - high VTE Device Contraindication: Treatment Not Indicated VTE Drug Contraindication: N/A - Med Ordered
[2020-12-12] MEDS: Azithromycin 500 MG in 0.9 % Sodium Chloride 250 ML 125 MG IV (19:12)
--- NOTE | 2020-12-12 21:21 | MHC.CM.PN ---
Attempted to meet with patient, but patient sleeping. CM spoke with Yane Watts-contact. of HCP/cousin Yuniel Watts ([phone]).HCP on file. Molst on file. DNR/DNI. Pt was at [facility] and was supposed to be LTC per Yane, but pt requested to leave and was d/c to home on 12/10/20. Family is unable to care for patient at home. [facility] were contracted to help care for patient. Per [facility], they cannot provide services at home without 24/7 care for this patient. Pt lives alone, uses a cane and a walker. According to medical record, pt had 1 dose of Pfizer. Yane tells CM that pt was in the and then worked for the [employer]. Unsure if pt is vet connected. [facility]. Yane tells CM that pt has funds to pay for LTC and will private pay. She is requesting LTC at [facility]. Yane concerned that pt may want to go back home. IMM reviewed with Yane and signed per protocol. 12/12/20@2039. Copy left at bedside. Pt now awake. IMM given to pt. Discussed D/C plan. Pt does not want 24/7 care in his home. Pt is agreeable to return to [facility]. Pt states he had very good care there. Pt aware that he will be admitted to the hospital. CM will place referral to [facility]. CM to follow for d/c needs.
[2020-12-12] MEDS: Doxycycline Hyclate 100 MG in 0.9 % Sodium Chloride 250 ML 166.67 MG IV (21:24)
[2020-12-13] VITALS (9 sets, daily range): BP systolic 115–175; BP diastolic 51–74; PULSE 60–76; RESP 12–17; TEMP 36.7–37.1; O2SAT 97–100
[2020-12-13] MEDS: cefTRIAXone sodium 1 GM in 0.9 % Sodium Chloride 50 ML IV ×2 (01:24→12:44)
[2020-12-13] MEDS: 0.9 % Sodium Chloride Flush 3 ML SYRINGE IVFLUSH ×3 (01:37→17:22)
[2020-12-13] MEDS: Apixaban 5 MG TABLET PO ×3 (01:37→21:39)
[2020-12-13] MEDS: Doxycycline Hyclate 100 MG in 0.9 % Sodium Chloride 250 ML 166.67 MG IV ×2 (07:11→20:26)
[2020-12-13 07:45] LABS: Hematocrit 32.9 % (42-52); Hemoglobin 10.4 g/dl (14.0-18.0); Mean Corpuscular HGB Conc 31.6 g/dl (31.0-36.0); Mean Corpuscular Hemoglobin 30.1 pg (27.0-33.0); Mean Corpuscular Volume 95.1 fL (80-98); Mean Platelet Volume 10.2 fL (9.4-12.4); Platelet Count 174 X10*3/uL (160-400); Red Blood Count 3.46 X10*6/uL (4.60-5.80); Red Cell Distribution Width 13.9 % (11.0-16.0); White Blood Count 13.7 X10*3/uL (4.8-10.8)
[2020-12-13 08:18] LABS: Anion Gap 9 (12-20); Blood Urea Nitrogen 25 mg/dL (9-16); Calcium 8.7 mg/dL (8.4-10.2); Carbon Dioxide 30 mmol/L (22-29); Chloride 103 mmol/L (96-108); Creatinine Clr Calc Pharmacy 47.9; Estimated Glomerular Filt Rate > 60; Glucose Random 93 mg/dL (60-115); Potassium 4.2 mmol/L (3.3-5.1); Sodium 138 mmol/L (135-145)
[2020-12-13] MEDS: Amiodarone HCL 200 MG TABLET PO (09:05)
[2020-12-13] MEDS: Digoxin 0.125 MG TABLET PO (09:05)
[2020-12-13] MEDS: Metoprolol Tartrate 25 MG TABLET PO ×2 (09:05→21:39)
--- NOTE | 2020-12-13 11:59 | PM.CNCAR ---
History of Present Illness History of Present Illness Date of Service: 12/13/20 Chief complaint: Sepsis Narrative: This is a cardiology consultation regarding elevated troponins. He has been either to the hospital with increasing weakness. There is a question of possibly sepsis from either cellulitis or aspiration pneumonia. In this context, troponins were checked and were found to be abnormal and hence we have been asked to see him. He is followed in the office but last appointment has been several months ago. He remains on amiodarone for atrial fibrillation but today's EKG actually shows sinus rhythm. He also has cardiomyopathy that could be from atrial fibrillation or he could have underlying coronary disease. However at this time, he denies any cardiac symptoms including chest pain, shortness of breath or flecainide in cardiac consult. Just generalized weakness and fatigue. Review of Systems Review of Systems: Yes all other systems are reviewed and are negative Cardiovascular: Cardiovascular: Reports as per HPI, Reports no additional cardiovascular complaints, Denies acrocyanosis, Denies cool extremities, Denies painful fingertips, Denies chest pain, Denies chest pain at rest, Denies diaphoresis, Denies syncope, Denies irregular heart rhythm, Denies claudication, Denies leg edema, Denies lightheadedness, Denies palpitations and Denies dyspnea Respiratory: Respiratory: Denies dyspnea Neurologic: Denies syncope Endocrine: Endocrine: Denies palpitations PMFSH Past Medical History Medical History Acute exacerbation of CHF (congestive heart failure) Candidal intertrigo Cardiomyopathy Cardiomyopathy, unspecified Cellulitis CHF (congestive heart failure) Failure to thrive HTN (hypertension) HTN (hypertension) PAF (paroxysmal atrial fibrillation) Persistent atrial fibrillation Pressure sore Family History Family History Father No problems noted. Mother No problems noted. Surgical History Surgical History Hx of appendectomy Social History Social History Household Members: None Housing: House Do you presently have visiting nurse or other home services: No Alcohol intake: never Patient Tobacco Use Status: Never used Tobacco Advance Directives: Yes Advance Directives on File: Yes Advance Directives Date on File: 04/29/20 service: Yes Current occupational status: retired Current occupation: rt handed Meds Allergies Allergy/AdvReac Type Severity Reaction Status Date / Time streptomycin [Streptomycin] Allergy Mild UNKNOWN Verified 11/06/20 08:28 Penicillins Allergy Unknown unk Verified 11/06/20 08:28 Sulfa (Sulfonamide Allergy Unknown UNKNOWN Verified 11/06/20 08:28 Antibiotics) [SULFA (SULFONAMIDE ANTIBIOTICS)] Active Medications: Current Medications Generic Name Dose Route Start Last Admin Trade Name Freq PRN Reason Stop Dose Admin Acetaminophen 650 mg 12/12/20 22:22 Acetaminophen 325 Mg Tablet PO Q6H PRN Pain, Mild (Pain Scale 1-3) Albuterol Sulfate 2.5 mg 12/12/20 22:22 Albuterol Sulfate (0.083%) 2.5 Mg/3 Ml Vial.Neb INHALE Q6H PRN Shortness of Breath Amiodarone HCl 200 mg 12/13/20 09:00 12/13/20 09:05 Amiodarone Hcl 200 Mg Tablet PO 200 mg DAILY KEAGAN Administration Apixaban 5 mg 12/12/20 22:22 12/13/20 08:28 Apixaban 5 Mg Tablet PO 5 mg BID KEAGAN Administration Digoxin 0.125 mg 12/13/20 09:00 12/13/20 09:05 Digoxin 0.125 Mg Tablet PO 0.125 mg DAILY KEAGAN Administration Docusate Sodium 100 mg 12/12/20 22:22 Docusate Sodium 100 Mg Capsule PO DAILY PRN Constipation Doxycycline Hyclate 100 mg/ 250 mls @ 166.67 mls/hr 12/12/20 19:00 12/13/20 08:41 Sodium Chloride IV Infused Q12H KEAGAN Infusion Ceftriaxone Sodium 1 gm/ 50 mls @ 100 mls/hr 12/13/20 00:00 12/13/20 02:10 Sodium Chloride IV Infused Q12H KEAGAN Infusion Metoprolol Tartrate 25 mg 12/13/20 09:00 12/13/20 09:05 Metoprolol Tartrate 25 Mg Tablet PO 25 mg BID KEAGAN Administration Protocol Ondansetron HCl 4 mg 12/12/20 22:22 Ondansetron Hcl 4 Mg/2 Ml Vial IVPUSH Q8H PRN Nausea and Vomiting Sodium Chloride 3 ml 12/13/20 00:00 12/13/20 07:12 0.9 % Sodium Chloride Flush 3 Ml Syringe IVFLUSH 3 ml QSHIFT [facility] Administration Home Medications Medication Instructions Recorded Confirmed Last Taken Type furosemide 40 mg tablet 20 mg PO DAILY 01/17/20 12/12/20 12/12/20 History metoprolol tartrate 25 mg tablet 1 tab PO BID 10/18/20 12/12/20 12/12/20 History digoxin 125 mcg (0.125 mg) tablet 1 tab PO DAILY 12/12/20 12/12/20 12/12/20 History Physical Exam Vital Signs: Vital Signs: Last Vital Signs Temp 98.4 F 12/13/20 08:26 Pulse 63 12/13/20 09:05 Resp 17 12/13/20 08:26 BP 115/51 L 12/13/20 09:05 Pulse Ox 98 12/13/20 08:26 Body Mass Index 18.8 Const: General: cooperative and no acute distress HENMT: Other: Unremarkable Neck: Neck: Yes normal visual inspection Chest: Chest palpation & inspection: normal inspection of the chest Resp: Auscultation: clear to auscultation bilaterally, no crackles and no wheezes Cardio: Jugular venous distension: no JVD Palpation: normal PMI Heart sounds: S1 normal heart sound present, S2 normal heart sound present, no gallops, no murmurs and no rubs GI: Palpation (GI): Soft to palpation Back/Spine/Pelvis: Other: unremarkable Skin: General skin exam: no rashes or lesions noted Neuro: Cranial nerves: Yes Other cranial nerve findings present Extrem: General: Yes no clubbing, cyanosis or edema Psych: Mental Status: other Results Labs and Meds Result diagrams: 12/13/20 07:14 12/13/20 07:14 Lab results: Laboratory Results - last 24 hr 12/12/20 12/12/20 12/12/20 11:39 11:39 11:39 WBC 24.6 H RBC 3.95 L Hgb 12.3 L Hct 37.5 L MCV 94.9 MCH 31.1 MCHC 32.8 RDW 14.0 Plt Count 207 MPV 10.0 Immature Gran % (Auto) 0.9 H Neut % (Auto) 88.5 H Lymph % (Auto) 5.2 L [place] % (Auto) 5.2 Eos % (Auto) 0.0 Baso % (Auto) 0.2 Lymph # (Auto) 1.3 [place] # (Auto) 1.3 H Eos # (Auto) 0.0 Baso # (Auto) 0.0 Abs Immat Gran (auto) 0.22 H Absolute Neuts (auto) 21.8 H Absolute Nucleated RBC 0.000 Nucleated RBC % (auto) 0.0 Smear Tech's Comments VERIFIED Sodium 139 Potassium 4.9 D Chloride 102 Carbon Dioxide 27 Anion Gap 15 BUN 33 H D Creatinine 1.33 Estim Creat Clear Calc 36.0 Estimated GFR 51 Random Glucose 83 Lactic Acid Lactic Acid Fup @ 2Hr Calcium 9.6 D Ferritin 325 H Total Bilirubin 0.9 Direct Bilirubin 0.4 AST 15 D ALT 12 Alkaline Phosphatase 96 D Lactate Dehydrogenase 261 Troponin I High Sens B-Natriuretic Peptide Total Protein 7.3 D Albumin 4.1 D Lipase 44 Procalcitonin Urine Color Urine Appearance Urine pH Ur Specific [place] Urine Protein Urine Glucose (UA) Urine Ketones Urine Blood Urine Nitrite Ur Leukocyte Esterase Urine RBC Urine WBC Ur Squamous Epith Cells Urine Bacteria Coronavirus (PCR) Influenza Type A (PCR) Influenza Type B (PCR) RSV RNA Qual (PCR) 12/12/20 12/12/20 12/12/20 11:39 11:39 11:39 WBC RBC Hgb Hct MCV MCH MCHC RDW Plt Count MPV Immature Gran % (Auto) Neut % (Auto) Lymph % (Auto) [place] % (Auto) Eos % (Auto) Baso % (Auto) Lymph # (Auto) [place] # (Auto) Eos # (Auto) Baso # (Auto) Abs Immat Gran (auto) Absolute Neuts (auto) Absolute Nucleated RBC Nucleated RBC % (auto) Smear Tech's Comments Sodium Potassium Chloride Carbon Dioxide Anion Gap BUN Creatinine Estim Creat Clear Calc Estimated GFR Random Glucose Lactic Acid Lactic Acid Fup @ 2Hr Calcium Ferritin Total Bilirubin Direct Bilirubin AST ALT Alkaline Phosphatase Lactate Dehydrogenase Troponin I High Sens 39.6 H* B-Natriuretic Peptide 857 H Total Protein Albumin Lipase Procalcitonin 0.20 Urine Color Urine Appearance Urine pH Ur Specific [place] Urine Protein Urine Glucose (UA) Urine Ketones Urine Blood Urine Nitrite Ur Leukocyte Esterase Urine RBC Urine WBC Ur Squamous Epith Cells Urine Bacteria Coronavirus (PCR) Influenza Type A (PCR) Influenza Type B (PCR) RSV RNA Qual (PCR) 09/01/2212/12/20 12/12/20 11:47 11:47 11:50 WBC RBC Hgb Hct MCV MCH MCHC RDW Plt Count MPV Immature Gran % (Auto) Neut % (Auto) Lymph % (Auto) [place] % (Auto) Eos % (Auto) Baso % (Auto) Lymph # (Auto) [place] # (Auto) Eos # (Auto) Baso # (Auto) Abs Immat Gran (auto) Absolute Neuts (auto) Absolute Nucleated RBC Nucleated RBC % (auto) Smear Tech's Comments Sodium Potassium Chloride Carbon Dioxide Anion Gap BUN Creatinine Estim Creat Clear Calc Estimated GFR Random Glucose Lactic Acid 2.7 H* Lactic Acid Fup @ 2Hr Calcium Ferritin Total Bilirubin Direct Bilirubin AST ALT Alkaline Phosphatase Lactate Dehydrogenase Troponin I High Sens B-Natriuretic Peptide Total Protein Albumin Lipase Procalcitonin Urine Color STRAW Urine Appearance CLEAR Urine pH 5.5 Ur Specific [place] 1.015 Urine Protein NEG Urine Glucose (UA) NEG Urine Ketones NEG Urine Blood 3+ H Urine Nitrite NEG Ur Leukocyte Esterase NEG Urine RBC 30-49 H Urine WBC 0-2 Ur Squamous Epith Cells NONE Urine Bacteria NONE Coronavirus (PCR) NEGATIVE Influenza Type A (PCR) NEGATIVE Influenza Type B (PCR) NEGATIVE RSV RNA Qual (PCR) NEGATIVE 12/12/20 12/12/20 12/13/20 15:34 15:34 07:14 WBC 13.7 H RBC 3.46 L Hgb 10.4 L Hct 32.9 L MCV 95.1 MCH 30.1 MCHC 31.6 RDW 13.9 Plt Count 174 MPV 10.2 Immature Gran % (Auto) Neut % (Auto) Lymph % (Auto) [place] % (Auto) Eos % (Auto) Baso % (Auto) Lymph # (Auto) [place] # (Auto) Eos # (Auto) Baso # (Auto) Abs Immat Gran (auto) Absolute Neuts (auto) Absolute Nucleated RBC 0.000 Nucleated RBC % (auto) 0.0 Smear Tech's Comments Sodium Potassium Chloride Carbon Dioxide Anion Gap BUN Creatinine Estim Creat Clear Calc Estimated GFR Random Glucose Lactic Acid Lactic Acid Fup @ 2Hr 1.2 Calcium Ferritin Total Bilirubin Direct Bilirubin AST ALT Alkaline Phosphatase Lactate Dehydrogenase Troponin I High Sens 52.1 H* B-Natriuretic Peptide Total Protein Albumin Lipase Procalcitonin Urine Color Urine Appearance Urine pH Ur Specific [place] Urine Protein Urine Glucose (UA) Urine Ketones Urine Blood Urine Nitrite Ur Leukocyte Esterase Urine RBC Urine WBC Ur Squamous Epith Cells Urine Bacteria Coronavirus (PCR) Influenza Type A (PCR) Influenza Type B (PCR) RSV RNA Qual (PCR) 12/13/20 07:14 WBC RBC Hgb Hct MCV MCH MCHC RDW Plt Count MPV Immature Gran % (Auto) Neut % (Auto) Lymph % (Auto) [place] % (Auto) Eos % (Auto) Baso % (Auto) Lymph # (Auto) [place] # (Auto) Eos # (Auto) Baso # (Auto) Abs Immat Gran (auto) Absolute Neuts (auto) Absolute Nucleated RBC Nucleated RBC % (auto) Smear Tech's Comments Sodium 138 Potassium 4.2 Chloride 103 Carbon Dioxide 30 H Anion Gap 9 L BUN 25 H Creatinine 1.00 Estim Creat Clear Calc 47.9 Estimated GFR > 60 Random Glucose 93 Lactic Acid Lactic Acid Fup @ 2Hr Calcium 8.7 D Ferritin Total Bilirubin Direct Bilirubin AST ALT Alkaline Phosphatase Lactate Dehydrogenase Troponin I High Sens B-Natriuretic Peptide Total Protein Albumin Lipase Procalcitonin Urine Color Urine Appearance Urine pH Ur Specific [place] Urine Protein Urine Glucose (UA) Urine Ketones Urine Blood Urine Nitrite Ur Leukocyte Esterase Urine RBC Urine WBC Ur Squamous Epith Cells Urine Bacteria Coronavirus (PCR) Influenza Type A (PCR) Influenza Type B (PCR) RSV RNA Qual (PCR) Imaging Radiologist's impression: Impressions Abdomen/Pelvis CT 12/12/20 12:42 IMPRESSION: Innumerable tiny groundglass opacity nodules are seen in the right lower lobe with a tree-in-bud distribution suggesting endobronchial spread of infection. No dense lobar consolidative pneumonia however. Small bilateral pleural effusions and associated atelectasis. The bladder is markedly irregular and trabeculated. Cystitis could give this appearance. There is a 1 cm calcification along the right posterior bladder wall which could be a bladder calculus. 1.2 cm right pelvic calcification is more likely a phlebolith but could be a calculus as well. There are bilateral renal calculi as well. There is a matted appearance of the small bowel in the posterior pelvis. Elsewhere the small bowel is distended with fluid and gas. A solid mass in this location cannot be excluded. Consider follow-up CT scan with oral contrast to exclude this possibility. Chest CT 12/12/20 12:42 IMPRESSION: Innumerable tiny groundglass opacity nodules are seen in the right lower lobe with a tree-in-bud distribution suggesting endobronchial spread of infection. No dense lobar consolidative pneumonia however. Small bilateral pleural effusions and associated atelectasis. The bladder is markedly irregular and trabeculated. Cystitis could give this appearance. There is a 1 cm calcification along the right posterior bladder wall which could be a bladder calculus. 1.2 cm right pelvic calcification is more likely a phlebolith but could be a calculus as well. There are bilateral renal calculi as well. There is a matted appearance of the small bowel in the posterior pelvis. Elsewhere the small bowel is distended with fluid and gas. A solid mass in this location cannot be excluded. Consider follow-up CT scan with oral contrast to exclude this possibility. Cervical Spine CT 12/12/20 12:47 IMPRESSION: 1. No acute bony abnormality or prevertebral soft tissue swelling. 2. Multilevel degenerative disc and degenerative facet changes with variable spondylolisthesis or retrolisthesis similar to prior CT 10/18/2020. Head CT 12/12/20 12:47 IMPRESSION: No acute intracranial abnormality. Foot X-Ray 12/12/20 13:14 IMPRESSION: The location of the plantar ulcer is not readily apparent on x-ray. No osseous destruction or periosteal reaction to suggest a site of osteomyelitis. Consider MRI for further evaluation as clinically indicated. There is diffuse soft tissue edema with medial and lateral ankle soft tissue swelling. There are vascular calcifications consistent with diabetes. Tibia/Fibula X-Ray 12/12/20 13:14 IMPRESSION: The location of the plantar ulcer is not readily apparent on x-ray. No osseous destruction or periosteal reaction to suggest a site of osteomyelitis. Consider MRI for further evaluation as clinically indicated. There is diffuse soft tissue edema with medial and lateral ankle soft tissue swelling. There are vascular calcifications consistent with diabetes. Venous Duplex 12/12/20 14:57 IMPRESSION: No DVT demonstrated in the bilateral lower extremity. Assessment and Plan (1) Elevated troponin I level: Status: Acute (2) Persistent atrial fibrillation: Status: Acute (3) Severe protein-calorie malnutrition: Status: Acute Data reviewed. Hemoglobin is 10.4. White cells 13.7. Admission white cell count 24.6. Serum creatinine 1. Lactic acid 2.7. High sensitivity troponins at 39 and 52. Cardiac BNP 857. Last echocardiogram from October with LVEF of 50-55%, mild mitral and tricuspid regurgitation; mild aortic stenosis and regurgitation; moderate to severe pulmonary hypertension. Overall, troponin leak is likely from demand in the setting of acute stress from sepsis and general medical issues. He could probably also have underlying coronary artery disease but with his dementia, general frailty, not a candidate for ischemia workup. With regard to atrial fibrillation, he has been in sinus rhythm in the last few months. Continue amiodarone beta blockers but can stop the digoxin that is still in his med list. Continue with anticoagulation. Check TSH. Procedures Date of Service Date of Service: 12/13/20
--- NOTE | 2020-12-13 12:34 | HO.PM.IMPN ---
Subjective Subjective Date of Service: 12/13/20 Interval History: Seen and examined this morning Follow-up for lower extremity cellulitis, likely aspiration pneumonia no overnight events Patient has no complaints, h/o dementia, feels fine. No chest pain Review of Systems Due to dementia patient is an unreliable historian Review of Systems: Yes all other systems are reviewed and are negative Constitutional Constitutional: Denies chills and Denies fever(s) Cardiovascular Cardiovascular: Denies chest pain Respiratory Respiratory: Denies cough Gastrointestinal Gastrointestinal: Denies abdominal pain Physical Exam Vital Signs: Vital Signs: Last Vital Signs Temp 98.4 F 12/13/20 08:26 Pulse 63 12/13/20 09:05 Resp 17 12/13/20 08:26 BP 115/51 L 12/13/20 09:05 Pulse Ox 98 12/13/20 08:26 Body Mass Index 18.8 Const: General: alert and awake Nutritional Appearance: thin and underweight Eyes: Sclerae: sclerae normal Pupils: Equal, round and reactive pupils present Resp: Effort & Inspection: normal respiratory effort, no respiratory distress and no use of accessory muscles Cardio: Rate: regular rate Rhythm: regular rhythm Skin: Other: Neuro: Cranial nerves: Yes Equal, round and reactive pupils present Objective Data Active Medications Acetaminophen (Acetaminophen 325 Mg Tablet) 650 mg PO Q6H PRN PRN Reason: Pain, Mild (Pain Scale 1-3) Albuterol Sulfate (Albuterol Sulfate (0.083%) 2.5 Mg/3 Ml Vial.Neb) 2.5 mg INHALE Q6H PRN PRN Reason: Shortness of Breath Amiodarone HCl (Amiodarone Hcl 200 Mg Tablet) 200 mg PO DAILY [facility] Last Admin: 12/13/20 09:05 Dose: 200 mg Documented by: MISTY Apixaban (Apixaban 5 Mg Tablet) 5 mg PO BID [facility] Last Admin: 12/13/20 08:28 Dose: 5 mg Documented by: MISTY Docusate Sodium (Docusate Sodium 100 Mg Capsule) 100 mg PO DAILY PRN PRN Reason: Constipation Doxycycline Hyclate 100 mg/ (Sodium Chloride) 250 mls @ 166.67 mls/hr IV Q12H [facility] Last Infusion: 12/13/20 08:41 Dose: 0 mls/hr Documented by: MISTY Ceftriaxone Sodium 1 gm/ (Sodium Chloride) 50 mls @ 100 mls/hr IV Q12H [facility] Last Infusion: 12/13/20 02:10 Dose: 0 mls/hr Documented by: FAUSTINO Metoprolol Tartrate (Metoprolol Tartrate 25 Mg Tablet) 25 mg PO BID [facility]; Protocol Last Admin: 12/13/20 09:05 Dose: 25 mg Documented by: MISTY Ondansetron HCl (Ondansetron Hcl 4 Mg/2 Ml Vial) 4 mg IVPUSH Q8H PRN PRN Reason: Nausea and Vomiting Sodium Chloride (0.9 % Sodium Chloride Flush 3 Ml Syringe) 3 ml IVFLUSH QSHIFT [facility] Last Admin: 12/13/20 07:12 Dose: 3 ml Documented by: MISTY Labs CBC & Chem 7: 12/13/20 07:14 12/13/20 07:14 Labs: Laboratory Results - last 24 hr 12/12/20 12/12/20 12/12/20 11:39 11:39 11:47 MCV MCH MCHC RDW Plt Count MPV Absolute Nucleated RBC Nucleated RBC % (auto) Anion Gap Estim Creat Clear Calc Estimated GFR Random Glucose Lactic Acid Fup @ 2Hr Calcium Ferritin 325 H Troponin I High Sens Procalcitonin 0.20 Coronavirus (PCR) NEGATIVE Influenza Type A (PCR) NEGATIVE Influenza Type B (PCR) NEGATIVE RSV RNA Qual (PCR) NEGATIVE 12/12/20 12/12/20 12/13/20 15:34 15:34 07:14 MCV 95.1 MCH 30.1 MCHC 31.6 RDW 13.9 Plt Count 174 MPV 10.2 Absolute Nucleated RBC 0.000 Nucleated RBC % (auto) 0.0 Anion Gap Estim Creat Clear Calc Estimated GFR Random Glucose Lactic Acid Fup @ 2Hr 1.2 Calcium Ferritin Troponin I High Sens 52.1 H* Procalcitonin Coronavirus (PCR) Influenza Type A (PCR) Influenza Type B (PCR) RSV RNA Qual (PCR) 12/13/20 07:14 MCV MCH MCHC RDW Plt Count MPV Absolute Nucleated RBC Nucleated RBC % (auto) Anion Gap 9 L Estim Creat Clear Calc 47.9 Estimated GFR > 60 Random Glucose 93 Lactic Acid Fup @ 2Hr Calcium 8.7 D Ferritin Troponin I High Sens Procalcitonin Coronavirus (PCR) Influenza Type A (PCR) Influenza Type B (PCR) RSV RNA Qual (PCR) Assessment and Plan (1) Sepsis: Status: Acute (2) Cellulitis: Status: Acute (3) Elevated troponin I level: Status: Acute (4) Aspiration pneumonia: Status: Acute (5) Severe protein-calorie malnutrition: Status: Acute (6) Atrial fibrillation: Status: Acute Assessment and Plan: This is an 85-year-old male with history of heart failure with reduced ejection fraction, atrial fibrillation, CKD, recent admission for mechanical fall and hip fracture status post ORIF brought to the hospital due to increasing weakness found to have sepsis Sepsis Possibly related to left lower extremity cellulitis and aspiration pneumonia Lactic acid elevated at 2.7, resolved with IVF Sepsis focused exam completed Follow-up results of blood cultures Continue IV antibiotics to cover both respiratory and skin pathogens Left lower extremity cellulitis/chronic wounds In the setting of chronic venous stasis No evidence of osteo on xray of left foot, will check ESR Local wound care Above IV antibiotics Pneumonia, probable aspiration continue IV abx as above History of dysphagia/aspiration On previous admission patient declined modified barium swallow, Patient would not want feeding tube according to previous documentation Family decided to allow patient to eat for comfort despite risk for aspiration and was discharged with hospice care (no longer on hospice) Mechanically altered diet Speech evaluation Aspiration precautions Possible small-bowel mass No abdominal pain, abdominal exam benign Seen on CT imaging Will obtain CT with PO contrast for further evaluation Severe protein calorie malnutrition. As evidence by BMI 18.8, and loss of subcutaneous fat and muscle mass Will add supplements Elevated troponin level Likely secondary from demand in the setting of above infection Seen by cardiology May have underlying CAD but given age, medical comorbidities, frailty not a candidate for further workup Atrial fibrillation Heart rate controlled Continue amiodarone, metoprolol DC digoxin per Cardiology recommendation Continue anticoagulation with Eliquis Will check thyroid function dvt ppx - eliquis Code status. MOLST form in chart indicates wishes to be DNR/DNI Attending-Dr. Chavarria Quality Stroke Does the patient have a stroke diagnosis?: No VTE Prior VTE?: No VTE Risk Level:: Medical - moderate - high VTE Device Contraindication: Treatment Not Indicated VTE Drug Contraindication: N/A - Med Ordered
[2020-12-13 13:23] LABS: TSH reflex Free T4 1.38 uIU/mL (0.32-4.0)
[2020-12-13 13:48] LABS: Erythrocyte Sedimentation Rate 18 MM/HR (0-15)
--- NOTE | 2020-12-13 14:50 | MHC.CM.PN ---
Patient was discharged to [facility] on [address] in October with [facility]. Hospice was revoked in October 2020. Continue to monitor for d/c needs.
--- NOTE | 2020-12-13 19:55 | PC.NURSE ---
report given to rn on floor, pt ready for transport.
[2020-12-13] MEDS: Barium Sulfate Oral (Vanilla) 450 ML ORAL.SUSP PO (21:03)
[2020-12-13] MEDS: Barium Sulfate Oral (Mocha) 450 ML ORAL.SUSP PO (21:03)
[2020-12-14] VITALS (9 sets, daily range): BP systolic 134–169; BP diastolic 61–81; PULSE 53–70; RESP 18–20; TEMP 36.4–37.2; O2SAT 97–100
[2020-12-14] MEDS: cefTRIAXone sodium 1 GM in 0.9 % Sodium Chloride 50 ML IV ×3 (00:27→22:55)
[2020-12-14] MEDS: 0.9 % Sodium Chloride Flush 3 ML SYRINGE IVFLUSH ×4 (00:28→20:17)
[2020-12-14 06:42] LABS: Hematocrit 32.5 % (42-52); Hemoglobin 10.6 g/dl (14.0-18.0); Mean Corpuscular HGB Conc 32.6 g/dl (31.0-36.0); Mean Corpuscular Hemoglobin 30.8 pg (27.0-33.0); Mean Corpuscular Volume 94.5 fL (80-98); Mean Platelet Volume 10.4 fL (9.4-12.4); Platelet Count 179 X10*3/uL (160-400); Red Blood Count 3.44 X10*6/uL (4.60-5.80); Red Cell Distribution Width 13.5 % (11.0-16.0); White Blood Count 9.1 X10*3/uL (4.8-10.8)
[2020-12-14 06:50] LABS: Anion Gap 12 (12-20); Blood Urea Nitrogen 23 mg/dL (9-16); Calcium 8.4 mg/dL (8.4-10.2); Carbon Dioxide 28 mmol/L (22-29); Chloride 102 mmol/L (96-108); Creatinine Clr Calc Pharmacy 53.3; Estimated Glomerular Filt Rate > 60; Glucose Random 91 mg/dL (60-115); Potassium 3.7 mmol/L (3.3-5.1); Sodium 138 mmol/L (135-145)
[2020-12-14] MEDS: polyethylene glycoL 3350 17 GM POWD.PACK PO (08:13)
[2020-12-14] MEDS: Doxycycline Hyclate 100 MG in 0.9 % Sodium Chloride 250 ML 166.67 MG IV ×2 (08:15→20:17)
[2020-12-14] MEDS: Amiodarone HCL 200 MG TABLET PO (08:15)
[2020-12-14] MEDS: Apixaban 5 MG TABLET PO ×2 (08:15→20:16)
--- NOTE | 2020-12-14 11:06 | HO.PM.IMPN ---
Subjective Subjective Date of Service: 12/14/20 Interval History: seen and examined this morning follow up for cellulitis/aspiration pneumonia h/o dementia, unreliable historian. no chest pain, sob, cough Review of Systems Review of Systems: Yes all other systems are reviewed and are negative Constitutional Constitutional: Denies chills and Denies fever(s) Cardiovascular Cardiovascular: Denies chest pain Respiratory Respiratory: Denies cough Gastrointestinal Gastrointestinal: Denies abdominal pain Physical Exam Vital Signs: Vital Signs: Last Vital Signs Temp 97.9 F 12/14/20 10:54 Pulse 54 12/14/20 10:54 Resp 20 12/14/20 10:54 BP 144/67 H 12/14/20 10:54 Pulse Ox 99 12/14/20 10:54 Body Mass Index 18.8 Const: General: alert and awake Nutritional Appearance: thin and underweight Eyes: Sclerae: sclerae normal Pupils: Equal, round and reactive pupils present Resp: Effort & Inspection: normal respiratory effort, no respiratory distress and no use of accessory muscles Cardio: Rate: regular rate Rhythm: regular rhythm Neuro: Cranial nerves: Yes Equal, round and reactive pupils present Objective Data Active Medications Acetaminophen (Acetaminophen 325 Mg Tablet) 650 mg PO Q6H PRN PRN Reason: Pain, Mild (Pain Scale 1-3) Albuterol Sulfate (Albuterol Sulfate (0.083%) 2.5 Mg/3 Ml Vial.Neb) 2.5 mg INHALE Q6H PRN PRN Reason: Shortness of Breath Amiodarone HCl (Amiodarone Hcl 200 Mg Tablet) 200 mg PO DAILY [facility] Last Admin: 12/14/20 08:15 Dose: 200 mg Documented by: PAXTON Apixaban (Apixaban 5 Mg Tablet) 5 mg PO BID [facility] Last Admin: 12/14/20 08:15 Dose: 5 mg Documented by: PAXTON Docusate Sodium (Docusate Sodium 100 Mg Capsule) 100 mg PO BEDTIME [facility] Doxycycline Hyclate 100 mg/ (Sodium Chloride) 250 mls @ 166.67 mls/hr IV Q12H [facility] Last Infusion: 12/14/20 08:24 Dose: 0 mls/hr Documented by: PAXTON Ceftriaxone Sodium 1 gm/ (Sodium Chloride) 50 mls @ 100 mls/hr IV Q12H [facility] Last Infusion: 12/14/20 01:21 Dose: 0 mls/hr Documented by: SKYE Magnesium Hydroxide (Milk Of Magnesia 30 Ml Oral.Susp) 15 ml PO BEDTIME PRN PRN Reason: Constipation Metoprolol Tartrate (Metoprolol Tartrate 25 Mg Tablet) 25 mg PO BID [facility]; Protocol Last Admin: 12/14/20 08:15 Dose: Not Given Documented by: PAXTON Non-Admin Reason: Decreased Heart Rate Ondansetron HCl (Ondansetron Hcl 4 Mg/2 Ml Vial) 4 mg IVPUSH Q8H PRN PRN Reason: Nausea and Vomiting Polyethylene Glycol (Polyethylene Glycol 3350 17 Gm Powd.Pack) 17 gm PO DAILY [facility] Last Admin: 12/14/20 08:13 Dose: 17 gm Documented by: PAXTON Sodium Chloride (0.9 % Sodium Chloride Flush 3 Ml Syringe) 3 ml IVFLUSH QSHIFT [facility] Last Admin: 12/14/20 08:15 Dose: 3 ml Documented by: PAXTON Labs CBC & Chem 7: 12/14/20 06:07 12/14/20 06:07 Labs: Laboratory Results - last 24 hr 12/13/20 12/13/20 12/14/20 07:14 07:24 06:07 MCV 94.5 MCH 30.8 MCHC 32.6 RDW 13.5 Plt Count 179 MPV 10.4 Absolute Nucleated RBC 0.000 Nucleated RBC % (auto) 0.0 ESR 18 H Anion Gap Estim Creat Clear Calc Estimated GFR Random Glucose Calcium TSH 1.38 12/14/20 06:07 MCV MCH MCHC RDW Plt Count MPV Absolute Nucleated RBC Nucleated RBC % (auto) ESR Anion Gap 12 Estim Creat Clear Calc 53.3 Estimated GFR > 60 Random Glucose 91 Calcium 8.4 TSH Microbiology Microbiology Results: Microbiology 12/12/20 11:39 Blood Culture - Preliminary Blood - Venous No growth after 24 hours. 12/12/20 11:48 Blood Culture - Preliminary Blood - Venous No growth after 24 hours. Assessment and Plan (1) Cellulitis: Status: Acute (2) Sepsis: Status: Acute (3) Severe protein-calorie malnutrition: Status: Acute (4) Aspiration pneumonia: Status: Acute Assessment and Plan: This is an 85-year-old male with history of heart failure with reduced ejection fraction, atrial fibrillation, CKD, recent admission for mechanical fall and hip fracture status post ORIF brought to the hospital due to increasing weakness found to have sepsis Sepsis related to left lower extremity cellulitis and aspiration pneumonia Lactic acid elevated at 2.7, resolved with IVF Sepsis focused exam completed Follow-up results of blood cultures Continue IV antibiotics to cover both respiratory and skin pathogens Left lower extremity cellulitis/chronic wounds In the setting of chronic venous stasis No evidence of osteo on xray of left foot, ESR low Local wound care Above IV antibiotics Pneumonia, probable aspiration continue IV abx as above speech eval pending History of dysphagia/aspiration On previous admission patient declined modified barium swallow, Patient would not want feeding tube according to previous documentation Family decided to allow patient to eat for comfort despite risk for aspiration and was discharged with hospice care (no longer on hospice) Mechanically altered diet Speech evaluation Aspiration precautions Possible small-bowel mass seen on initial CT scan CT with PO contrast does not show mass, shows only constipation will add bowel regimen Severe protein calorie malnutrition. As evidence by BMI 18.8, and loss of subcutaneous fat and muscle mass Dietary supplements Elevated troponin level Likely secondary from demand in the setting of above infection Seen by cardiology May have underlying CAD but given age, medical comorbidities, frailty not a candidate for further workup Atrial fibrillation Heart rate controlled Continue amiodarone, metoprolol DC digoxin per Cardiology recommendation Continue anticoagulation with Eliquis Thyroid function wnl HTN continue norvasc HFrEF Will resume lasix dvt ppx - eliquis Code status. MOLST form in chart indicates wishes to be DNR/DNI Attending-Dr. Chavarria DISPO - d/c from rehab 1 week ago; not able to care for self at home any longer; will need to return to rehab with likely transition to intermediate care, prefers to return to [facility] if possible Quality Stroke Does the patient have a stroke diagnosis?: No VTE Prior VTE?: No VTE Risk Level:: Medical - moderate - high VTE Device Contraindication: Treatment Not Indicated VTE Drug Contraindication: N/A - Med Ordered
[2020-12-14] MEDS: LORazepam 2 MG/ML VIAL 0.25 MG IVPUSH ×2 (17:07→18:10)
[2020-12-14] MEDS: Docusate Sodium 100 MG CAPSULE PO (20:14)
[2020-12-14] MEDS: Haloperidol Lactate 5 MG/ML VIAL 2.5 MG IVPUSH (22:51)
--- NOTE | 2020-12-15 | ECG_ITS ---
Test Reason : ELEV HR Blood Pressure : / mmHG Vent. Rate : 135 BPM Atrial Rate : 135 BPM P-R Int : 216 ms QRS Dur : 092 ms QT Int : 326 ms P-R-T Axes : 000 084 084 degrees QTc Int : 489 ms Sinus tachycardia with 1st degree A-V block with frequent Premature ventricular complexes Nonspecific ST and T wave abnormality Abnormal ECG When compared with ECG of 12-DEC-2020 11:07, Premature ventricular complexes are now Present ND interval has increased Vent. rate has increased BY 58 BPM T wave inversion no longer evident in Inferior leads ST more depressed Lateral leads Referred By: Anyi Alejandra Electronically Signed By:BRIDGET BASILIO
[2020-12-15] MEDS: diphenhydrAMINE HCL 50 MG/ML VIAL 25 MG IVPUSH (01:30)
[2020-12-15 03:36] VITALS: BP 155/74; PULSE 69; RESP 17; TEMP 37.1; O2SAT 99
[2020-12-15] MEDS: Doxycycline Hyclate 100 MG in 0.9 % Sodium Chloride 250 ML 166.67 MG IV (06:23)
[2020-12-15 06:47] LABS: Mean Corpuscular HGB Conc 33.3 g/dl (31.0-36.0); Mean Corpuscular Hemoglobin 30.9 pg (27.0-33.0); Mean Corpuscular Volume 92.8 fL (80-98); Mean Platelet Volume 10.1 fL (9.4-12.4); Platelet Count 203 X10*3/uL (160-400); Red Blood Count 3.88 X10*6/uL (4.60-5.80); Red Cell Distribution Width 13.3 % (11.0-16.0); White Blood Count 8.4 X10*3/uL (4.8-10.8)
[2020-12-15 07:09] VITALS: BP 155/75; PULSE 74; RESP 18; TEMP 36.4; O2SAT 95
[2020-12-15 07:27] LABS: Anion Gap 12 (12-20); Blood Urea Nitrogen 21 mg/dL (9-16); Calcium 9.1 mg/dL (8.4-10.2); Carbon Dioxide 28 mmol/L (22-29); Chloride 102 mmol/L (96-108); Creatinine Clr Calc Pharmacy 47.4; Estimated Glomerular Filt Rate > 60; Glucose Random 100 mg/dL (60-115); Potassium 3.9 mmol/L (3.3-5.1); Sodium 138 mmol/L (135-145)
[2020-12-15] MEDS: Apixaban 5 MG TABLET PO (09:35)
[2020-12-15] MEDS: Furosemide 20 MG TABLET PO (09:35)
[2020-12-15] MEDS: polyethylene glycoL 3350 17 GM POWD.PACK PO (09:35)
[2020-12-15] MEDS: Metoprolol Tartrate 25 MG TABLET PO (09:35)
[2020-12-15] MEDS: 0.9 % Sodium Chloride Flush 3 ML SYRINGE IVFLUSH ×2 (09:35→16:22)
[2020-12-15] MEDS: amLODIPine Besylate 2.5 MG TABLET PO (09:35)
[2020-12-15] MEDS: Amiodarone HCL 200 MG TABLET PO (09:35)
[2020-12-15 09:43] VITALS: BP 155/75; PULSE 74; O2SAT 95
[2020-12-15 11:13] VITALS: BP 145/78; PULSE 135; RESP 18; TEMP 36.4; O2SAT 95
[2020-12-15 11:23] VITALS: BMI 18.8
--- NOTE | 2020-12-15 11:40 | MHC.CLN ---
RE: CONSULT: PT IS SEVERELY MALNOURISHED PT WITH SEVERELY DEPLETED SUBCUTANEOUS FAT AND MUSCLE MASS, BMI 18.8 AND CHRONIC POOR PO INTAKE X 2 MONTHS R/T DYSPHAGIA AND PT DECLINED MBS AND FAMILY DECIDED TO ALLOW PO INTAKE DESPITE RISKS FOR ASPIRATION MD NOTED: History of dysphagia/aspiration-On previous admission patient declined modified barium swallow, Patient would not want feeding tube according to previous documentation. Family decided to allow patient to eat for comfort despite risk for aspiration and was discharged with hospice care (no longer on hospice); Mechanically altered diet; Speech evaluation; Aspiration precautions AWAITING SPEECH EVAL FOR APPROPRIATE DIET CONSISTENCY DIET RX: GRD M/S-PT CONSUME 100% X 3 MEALS PT RECEIVING ENSURE BID TO INCREASE KCALS SUPPLEMENT PROVIDES 700KCALS, 40G PROTEIN MONITOR PO INTAKE CLOSELY SEE ALSO CLINICAL NUTRITION ASSESSMENT
--- NOTE | 2020-12-15 12:14 | MHC.SL.SWA ---
Speech Pathologist Impression: Risk of Aspiration Oralpharyngeal Dysphagia Risk of Aspiration Due to: History of Pneumonia Dysphasia Diet Status: No Change Liquid Consistency and Strategies for Safe Swallow: Liquid Intake Recommendation: Thin Liquid Intake Strategies: Small Sips No Straws Solid Food Consistency: Dietary Recommendations: Grnd/Mech Altered (NDD2) Additional Modifications to Solid Foods: Recommend continue GROUND/MECH ALTERED (NDD2) solids and THIN liquids with pills CRUSHED in PUREE. Given history of aspiration and current dx of pneumonia, recommend strict aspiration precautions and total supervision. MUSIC MIXER continues to recommend MBSS during inpatient stay or in outpatient setting given history of aspiration and pneumonia. Recommend patient education RE: aspiration. Oral Medication Intake: Crushed with Puree Compensatory Strategies and Precautions to be Taken for Safe Swallow: Sitting Upright (90 deg) No Straw Small Bites and Sips Alternate Liquids/Solids Rate of Ingestion Change Supervision While Eating and Drinking for Safe Swallow: Total Supervision (1:1) Foods to Avoid: Swallowing Recommended Treatments: Compens. Strategy Educat. Recommendation for Speech: Inpatient Speech Therapy Modified Barium Swallow Study - Inpatient Modified Barium Swallow Study - Outpatient Comment: MUSIC MIXER will continue to follow. Sewing Machine Maintenance Mechanic Clinican/Clinical Fellow: No Supervisory Statement: I have reviewed and agree with the student/clinical fellow's documentation: N/A Speech Language Pathologist: Stephanie Kelly M.A., [facility]
[2020-12-15] MEDS: cefTRIAXone sodium 1 GM in 0.9 % Sodium Chloride 50 ML IV (12:42)
[2020-12-15] MEDS: LORazepam 2 MG/ML VIAL 0.25 MG IVPUSH (15:06)
[2020-12-15 15:55] VITALS: BP 151/74; PULSE 77; RESP 18; TEMP 36.4; O2SAT 96
--- NOTE | 2020-12-15 16:14 | MHC.CM.PN ---
pt cleared to dc today to [facility] at 1800 hours via [facility] CM called pts HCP, Yuniel Jaureguitonyakami ([phone]), [place] , Yane got on the phone and was informed the pt would DC to SNF this evening. Family will visit pt at the SNF tomorrow
--- NOTE | 2020-12-15 16:15 | PM.DS ---
DS: Providers Provider Date of Service: 12/15/20 Date of admission: 12/12/20 18:06 Primary care physician: Bimal Velez MD Consults: 12/13/20 08:26 Consult to Cardiology Routine Consulting Provider: Murtaza Renee Reason for consultation: indeterminate trop Has provider been notified: No Attending physician on discharge: Gael Monahan Discharging clinician: Anyi Alejandra DS: Diagnosis Discharge Diagnosis (1) Sepsis: Status: Acute (2) Cellulitis: Status: Acute (3) Aspiration pneumonia: Status: Acute (4) Severe protein-calorie malnutrition: Status: Acute DS: Summary Hospital Course Hospital Course: HP as per admitting provider This is an 85-year-old male with history of dementia who was brought in from home due to increasing weakness.? Patient was admitted to [facility] in October after mechanical fall found to have a hip fracture.? At that time he was noted to have aspiration and according to documentation patient declined modified barium swallow.? A family meeting was documented and the family decided to allow the patient to eat for comfort knowing the risk of probable aspiration in the future.? [facility]. At his time the patient is awake and alert but due to his dementia his history is limited.? The patient himself reports feeling fine with no complaints of any kind.? Per EMS he was febrile with a temperature of 101.1 degrees. lab work in the emergency department revealed leukocytosis of 24,000 and elevated lactic acid of 2.7. Urinalysis was not consistent with UTI.? Multiple imaging studies were done and CT chest showed possibility of pneumonia probable aspiration.? Patient also noted to have erythema and warmth to left lower extremity.? He was given a dose Of IV ceftriaxone and a decision was made to admit him for further management.? I spoke with his healthcare proxy's Yane who the patient told made to contact as his HCP recently had back surgery.? According to Yane of the patient returned home from [facility] 1 week ago.? He is being followed at the wound clinic for left lower extremity chronic wound.? He was discharged from [facility] at the request of the patient, however the family is now concerned that the patient is unable to care for himself and will likely need to return to prison facility for probable long-term care.? She states that someone went to pick him up for his appointment this morning and he was ?in bad shape? and Dr. Velez told them to call call the ambulance . Sepsis related to left lower extremity cellulitis and aspiration pneumonia Sepsis focused exam completed negative blood cultures Left lower extremity cellulitis/chronic wounds In the setting of chronic venous stasis No evidence of osteo on xray of left foot, ESR low Local wound care Continue Doxycycline and Ceftin for total of 10 days Pneumonia, probable aspiration continue IV abx as above speech eval pending Continue Doxycycline and Ceftin for total of 10 days History of dysphagia/aspiration On previous admission patient declined modified barium swallow, Patient would not want feeding tube according to previous documentation Family decided to allow patient to eat for comfort despite risk for aspiration and was discharged with hospice care (no longer on hospice) Mechanically altered diet Speech evaluation Aspiration precautions Possible small-bowel mass seen on initial CT scan CT with PO contrast does not show mass, shows only constipation will add bowel regimen Severe protein calorie malnutrition.? As evidence by BMI 18.8, and loss of subcutaneous fat and muscle mass Dietary supplements Elevated troponin level Likely secondary from demand in the setting of above infection Seen by cardiology May have underlying CAD but given age, medical comorbidities, frailty not a candidate for further workup Atrial fibrillation Heart rate controlled Continue amiodarone, metoprolol DC digoxin per Cardiology recommendation Continue anticoagulation with Eliquis Thyroid function wnl HTN continue norvasc HFrEF Will resume lasix Time Spent with Patient Time attestation: Total time spent providing and/or coordinating discharge services: Discharge coordination time: Greater than 30 minutes Quality: Stroke Does the patient have a stroke diagnosis?: No Physical Exam Vital Signs: Vital Signs: Last Vital Signs Temp 97.6 F 12/15/20 15:55 Pulse 77 12/15/20 15:55 Resp 18 12/15/20 15:55 BP 151/74 H 12/15/20 15:55 Pulse Ox 96 12/15/20 15:55 Body Mass Index 18.8 Appearing in no acute distress head is normocephalic atraumatic eyes pupils are PERRLA sclera is anicteric mouth throat mucous membranes are intact and moist neck is supple no lymphadenopathy, no JVD noted lung sounds are clear to auscultation heart regular rate rhythm, clear S1, S2 positive bowel sounds, abdomen is soft, nontender neuro patient is alert, confused, no focal deficits DS: Data Data Completed and Pending Completed studies during hospitalization [Text1]: Procedures Insertion of Infusion Device into Right Brachial Vein, Percutaneous Approach (10/18/20) Replacement of Left Hip Joint, Femoral Surface with Synthetic Substitute, Uncemented, Open Approach (10/18/20) Labs on day of discharge: Laboratory Results - last 24 hr 12/15/20 12/15/20 06:29 06:29 WBC 8.4 RBC 3.88 L Hgb 12.0 L Hct 36.0 L MCV 92.8 MCH 30.9 MCHC 33.3 RDW 13.3 Plt Count 203 MPV 10.1 Absolute Nucleated RBC 0.000 Nucleated RBC % (auto) 0.0 Sodium 138 Potassium 3.9 Chloride 102 Carbon Dioxide 28 Anion Gap 12 BUN 21 H Creatinine 1.01 Estim Creat Clear Calc 47.4 Estimated GFR > 60 Random Glucose 100 Calcium 9.1 D Preliminary micro results at discharge 12/12/20 11:39 Blood Culture - Preliminary Blood - Venous No growth after 48 hours. 12/12/20 11:48 Blood Culture - Preliminary Blood - Venous No growth after 48 hours. Discharge Plan Discharge Anticipated Discharge Date/Time: 12/15/20 16:20 Patient Disposition: Xfer Inpatient Rehab Fac Discharge Diagnosis: Aspiration pneumonia Sepsis Cellulitis Referrals: [facility] [Outside] - 1 Week Bimal Velez MD [Primary Care Provider] - 1 Week Discharge Medications: New cefuroxime axetil 500 mg tablet 500 mg PO BID Qty: 12 RF: 0 doxycycline hyclate 100 mg tablet 100 mg PO BID Qty: 12 RF: 0 Continued amiodarone 200 mg tablet 200 mg PO DAILY Qty: 90 RF: 1 apixaban [Eliquis] 5 mg tablet 5 mg PO BID Qty: 180 RF: 3 metoprolol tartrate 25 mg tablet 1 tab PO BID RF: 0 amlodipine [Norvasc] 2.5 mg tablet 2.5 mg PO DAILY Qty: 30 RF: 0 digoxin 125 mcg (0.125 mg) tablet 1 tab PO DAILY RF: 0 furosemide 40 mg tablet 20 mg PO DAILY RF: 0 Diet: advance to usual diet Activity on Discharge: As tolerated Stand Alone Forms: Patient Portal Discharge page Care Plan Goals: Resolution of pneumonia and cellulitis symptoms Health Concerns: Aspiration pneumonia Sepsis Cellulitis Plan of Treatment: Continue antibiotics as prescribed Diet ground mechanical solids and thin liquids with pills crushed in puree Assessment: see discharge summary
[2020-12-15 18:12] LABS: COVID-19 Test Negative (Negative); IDNOW Serial# 08D9AD1C
== END 2020-12-15 19:42 | DRG 871 ==
LOC: HO.ED 17:18 → HO.EDOVER 18:34 → HO.IMC 12-13 19:36
PROVIDERS: Physician Assistant; Admitting Provider Physician Assistant Medical; Emergency Provider Emergency Medicine; PCP Internal Medicine; Visit Provider Nurse Practitioner Acute Care
DX: A41.9 Sepsis, unspecified organism (principal); E43 Unspecified severe protein-calorie malnutrition; J69.0 Pneumonitis due to inhalation of food and vomit; L03.116 Cellulitis of left lower limb; Z68.1 Body mass index [BMI] 19.9 or less, adult; I48.19 Other persistent atrial fibrillation; I50.22 Chronic systolic (congestive) heart failure; F03.90 Unspecified dementia, unspecified severity, without behavioral disturbance, psychotic disturbance, mood disturbance, and anxiety; I11.0 Hypertensive heart disease with heart failure; K59.00 Constipation, unspecified; R79.89 Other specified abnormal findings of blood chemistry; Z20.822 Contact with and (suspected) exposure to COVID-19; Z88.0 Allergy status to penicillin; Z88.2 Allergy status to sulfonamides; Z79.01 Long term (current) use of anticoagulants; Z79.899 Other long term (current) drug therapy
CPT/HCPCS: 0241U; 36415; 70450; 71045; 71260; 72125; 73590; 73620; 74177; 80048; 80053; 81001; 81003; 82248; 82728; 83605; 83615; 83690; 83880; 84145; 84443; 84484; 85025; 85027; 85652; 87040; 87635; 92610; 93005; 93970; 96361; 96365; 97162; 99285; 99291; J0456; J0696; J1200; J2060; Q9967

== ENCOUNTER 2021-01-12 14:36 | Emergency (ER) | payer BC, SELFPAY ==
--- NOTE | ~2021-01-12 | CT_ITS ---
EXAMINATION: CT HEAD WITHOUT CONTRAST CLINICAL INFORMATION: Confusion COMPARISON: CT had noncontrast 12/12/2020, 10/21/2020 TECHNIQUE: Contiguous axial imaging was performed from the skull base to vertex without intravenous administration of contrast. Additional 2-D coronal and sagittal reformatted images are generated on the CT workstation and uploaded to PACS. This CT examination was performed using dose optimization techniques as appropriate, variously including the following: *Automated exposure control *Adjustment of mA and/or kV according to patient size (this includes techniques or standardized protocols for targeted exams where dose is matched to indication/reason for exam; i.e. extremities or head) *Use of iterative reconstruction technique DLP: 755 mGy-cm FINDINGS: There is no intracranial hemorrhage, hematoma, or extra-axial fluid collection. There are generalized atrophic changes similar to prior exam. Again, there is bilateral basal ganglia calcifications. Periventricular white matter small vessel ischemic changes are similar to prior study. There is no mass effect or edema. The solo-white matter differentiation is similar to prior study. There is no visible acute territorial infarct or mass lesion. The calvarium appears intact. There is no pneumocephalus or orbital emphysema. No air-fluid levels visualized sinuses or mastoids or middle ear cavities. CT/CT head/brain wo con IMPRESSION: No acute intracranial abnormality.
--- NOTE | ~2021-01-12 | XR_ITS ---
EXAMINATION: XR CHEST CLINICAL INFORMATION: Confusion COMPARISON: Chest radiographs 12/12/2020, 10/27/2020, CT chest 12/12/2020 TECHNIQUE: 2 views of the chest were obtained. FINDINGS: There are small bilateral layering effusions. Heart is upper limits of normal size. The vascularity is normal. There is no lobar or segmental airspace consolidation. Nipple shadow overlies left lower zone similar to prior chest radiograph. No nodule in this area on CT. The hilar and mediastinal contours and visualized bony structures are unremarkable. XR/XR chest 2V IMPRESSION: Bilateral effusions. Vascularity normal.
[2021-01-12 14:45] VITALS: BP 158/70; PULSE 62
[2021-01-12 14:52] VITALS: BP 144/70; PULSE 63; RESP 16; TEMP 36.7; O2SAT 96; BMI 22.8
--- NOTE | 2021-01-12 15:19 | ECG_ITS ---
Test Reason : LACERATION Blood Pressure : / mmHG Vent. Rate : 062 BPM Atrial Rate : 062 BPM P-R Int : 166 ms QRS Dur : 088 ms QT Int : 452 ms P-R-T Axes : 070 069 089 degrees QTc Int : 458 ms Normal sinus rhythm Nonspecific ST abnormality Abnormal ECG When compared with ECG of 15-DEC-2020 12:00, Premature ventricular complexes are no longer Present SD interval has decreased Vent. rate has decreased BY [address] less depressed in Lateral leads Referred By: Hank Salomon Electronically Signed By:CORNELIUS BARR MD
--- NOTE | 2021-01-12 15:21 | ED.GENADULT ---
HPI - General Adult General Chief complaint: Wound/Laceration Stated complaint: wound care Time Seen by Provider: 01/12/21 15:00 Source: patient, RN notes reviewed, old records reviewed and other (assisted notes) Mode of arrival: EMS Limitations: altered mental status History of Present Illness HPI narrative: Patient with a baseline history of dementia and confusion has apparently been more confused over the past several days per half-way staff. He also has a history of peripheral vascular disease both arterial and venous. He is due for a vascular procedure sometime in the next few weeks due to his peripheral arterial disease. He has some chronic wounds of bilateral feet. Nursing homes also concerned because of some skin changes. He was admitted last month for pneumonia and cellulitis. He apparently improved and was discharged back to the half-way. The patient himself complains of chronic bilateral foot pain. He is mildly confused but does not think the pain is significantly worse. He denies other symptoms such as cough or fevers or chills or other areas of pain. Related Data Home Medications Medication Instructions Recorded Confirmed furosemide 40 mg tablet 20 mg PO DAILY 01/17/20 12/12/20 metoprolol tartrate 25 mg tablet 1 tab PO BID 10/18/20 12/12/20 digoxin 125 mcg (0.125 mg) tablet 1 tab PO DAILY 12/12/20 12/12/20 Previous Rx's Medication Instructions Recorded amiodarone 200 mg tablet 200 mg PO DAILY #90 tab 02/21/20 apixaban 5 mg tablet (Eliquis) 5 mg PO BID #180 cap 06/04/20 amlodipine 2.5 mg tablet (Norvasc) 2.5 mg PO DAILY #30 tab 10/26/20 cefuroxime axetil 500 mg tablet 500 mg PO BID #12 tab 12/15/20 doxycycline hyclate 100 mg tablet 100 mg PO BID #12 tab 12/15/20 Allergies Allergy/AdvReac Type Severity Reaction Status Date / Time streptomycin [Streptomycin] Allergy Mild UNKNOWN Verified 11/06/20 08:28 Penicillins Allergy Unknown unk Verified 11/06/20 08:28 Sulfa (Sulfonamide Allergy Unknown UNKNOWN Verified 11/06/20 08:28 Antibiotics) [SULFA (SULFONAMIDE ANTIBIOTICS)] Review of Systems Review of Systems: Patient is mildly confused and denies all symptoms with the exception of bilateral foot pain Constitutional: Constitutional: Denies fever(s) Cardiovascular: Comments: No chest pain Respiratory: Comments: No cough or difficulty breathing Gastrointestinal: Comments: No nausea vomiting diarrhea or abdominal pain Musculoskeletal: Comments: Bilateral foot pain, chronic. Integumentary/Breasts: Comments: Denies significant redness of the legs PMF Past Medical History Medical History (Updated 01/12/21 @ 20:52 by Hank Salomon MD) Acute exacerbation of CHF (congestive heart failure) Atrial fibrillation Candidal intertrigo Cardiomyopathy Cardiomyopathy, unspecified Cellulitis CHF (congestive heart failure) Failure to thrive HTN (hypertension) HTN (hypertension) PAF (paroxysmal atrial fibrillation) Persistent atrial fibrillation Pressure sore Surgical History Hx of appendectomy Family History Family History Father No problems noted. Mother No problems noted. Social History Social History Household Members: None Household Members Other:: has cousin that lives next door, and neighbor is retired nurse that helps Housing: House Do you presently have visiting nurse or other home services: No Alcohol intake: never Patient Tobacco Use Status: Never used Tobacco Use of substances other than those prescribed or required for medical reasons: No Advance Directives: No Advance Directives Information Provided: No Advance Directives Date on File: 04/29/20 service: Yes Current occupational status: retired Current occupation: rt handed Physical Exam Vital Signs: Vital Signs: Last Vital Signs Temp 98.0 F 01/12/21 20:00 Pulse 62 01/12/21 20:00 Resp 16 01/12/21 20:00 BP 128/57 L 01/12/21 20:00 Pulse Ox 99 01/12/21 20:00 Body Mass Index 22.8 Const: Other: No acute distress. Awake and alert Resp: Other: Clear and equal bilaterally without wheezes rales or rhonchi. Good air entry Cardio: Other: Regular rate and rhythm without murmurs rubs or gallops GI: Other: Soft nontender nondistended Skin: Other: Bilateral legs with chronic venous stasis changes and darkening of the skin from forefoot to distal to the knee. He has a small 1 x 2 cm wound over the lateral aspect of his left foot. No surrounding erythema or significant drainage noted. He also has a 0.5 cm wound over his right medial foot also without significant drainage. There is no significant surrounding erythema. His skin bilateral feet is warm. He has a necrotic left 2nd distal portion of his toe. The tissue is dry mummified. No purulence drainage noted. Extrem: Other: No obviously palpable pulses. Patient has known peripheral arterial occlusive disease Course Course Course Narrative: Mental status change. Sepsis Electrolyte imbalance Cardiac ischemia Peripheral limb ischemia No obvious cellulitis or wound infection noted Osteomyelitis is possible Renal failure Liver failure Hepatic encephalopathy Urinary tract infection 8:50 p.m.. Extensive workup in the emergency department shows mild hyperkalemia but no other significant abnormalities. No signs of sepsis. No evidence for ischemic limb. Stable for outpatient follow-up and vascular procedure electively. Medical Decision Making Lab Data Result diagrams: 01/12/21 15:59 Labs: Lab Results 01/12/21 01/12/21 01/12/21 Range/Units 15:59 15:59 16:00 Sodium 141 (135-145) mmol/L Potassium 5.4 H D (3.3-5.1) mmol/L Chloride 105 (96-108) mmol/L Carbon Dioxide 31 H (22-29) mmol/L Anion Gap 10 L (12-20) BUN 22 H (9-16) mg/dL Creatinine 1.08 (0.5-1.4) mg/dL Estim Creat Clear Calc 48.1 Estimated GFR > 60 Random Glucose 140 H D (60-115) mg/dL Lactic Acid 1.1 (0.5-2.0) mmol/L Calcium 8.7 (8.4-10.2) mg/dL Total Bilirubin 0.7 (0.0-1.0) mg/dL AST 14 (5-37) U/L ALT 12 (0-40) U/L Alkaline Phosphatase 88 (39-117) U/L Ammonia (13-55) umol/L Total Creatine Kinase 69 D (38-174) U/L Troponin I High Sens 12.0 D (<3.5-35.0) ng/L Total Protein 6.4 L (6.5-8.0) g/dL Albumin 3.4 L (3.5-5.0) g/dL Urine Color Urine Appearance Urine pH (5.0-8.0) Ur Specific [place] (1.005-1.025) Urine Protein (NEG-TRACE) MG/DL Urine Glucose (UA) (NEG) MG/DL Urine Ketones (NEG) MG/DL Urine Blood (NEG) Urine Nitrite (NEG) Ur Leukocyte Esterase (NEG) Urine RBC (0) /HPF Urine WBC (0-4) /HPF Ur Squamous Epith Cells /LPF Urine Bacteria /LPF Urine Mucus /LPF COVID-19 ([facility]) (Negative) COVID-19 Clin Com 01/12/21 01/12/21 01/12/21 Range/Units 16:01 17:50 20:00 Sodium (135-145) mmol/L Potassium (3.3-5.1) mmol/L Chloride (96-108) mmol/L Carbon Dioxide (22-29) mmol/L Anion Gap (12-20) BUN (9-16) mg/dL Creatinine (0.5-1.4) mg/dL Estim Creat Clear Calc Estimated GFR Random Glucose (60-115) mg/dL Lactic Acid (0.5-2.0) mmol/L Calcium (8.4-10.2) mg/dL Total Bilirubin (0.0-1.0) mg/dL AST (5-37) U/L ALT (0-40) U/L Alkaline Phosphatase (39-117) U/L Ammonia 18 (13-55) umol/L Total Creatine Kinase (38-174) U/L Troponin I High Sens (<3.5-35.0) ng/L Total Protein (6.5-8.0) g/dL Albumin (3.5-5.0) g/dL Urine Color DK YELLOW Urine Appearance HAZY Urine pH 6.5 (5.0-8.0) Ur Specific [place] 1.015 (1.005-1.025) Urine Protein 1+ H (NEG-TRACE) MG/DL Urine Glucose (UA) NEG (NEG) MG/DL Urine Ketones NEG (NEG) MG/DL Urine Blood 3+ H (NEG) Urine Nitrite NEG (NEG) Ur Leukocyte Esterase TRACE H (NEG) Urine RBC 30-49 H (0) /HPF Urine WBC 0 (0-4) /HPF Ur Squamous Epith Cells NONE /LPF Urine Bacteria TRACE /LPF Urine Mucus TRACE /LPF COVID-19 ([facility]) Negative (Negative) COVID-19 Clin Com See Note Discharge Plan Discharge Clinical Impression: Acute confusion Patient Disposition: Xfer SNF Instructions: Dementia (ED) Additional Instructions: The workup in the emergency department consisted of lab work, urine test, respiratory viral testing, and CT scan of the brain. Most of the labs were normal with the exception of mildly elevated potassium which was treated with Kayexalate. Patient stable without evidence of acutely ischemic limb. He can follow up and have his vascular procedure electively. Prescriptions: No Action amiodarone 200 mg tablet 200 mg PO DAILY Qty: 90 RF: 1 apixaban [Eliquis] 5 mg tablet 5 mg PO BID Qty: 180 RF: 3 metoprolol tartrate 25 mg tablet 1 tab PO BID RF: 0 amlodipine [Norvasc] 2.5 mg tablet 2.5 mg PO DAILY Qty: 30 RF: 0 digoxin 125 mcg (0.125 mg) tablet 1 tab PO DAILY RF: 0 doxycycline hyclate 100 mg tablet 100 mg PO BID Qty: 12 RF: 0 cefuroxime axetil 500 mg tablet 500 mg PO BID Qty: 12 RF: 0 furosemide 40 mg tablet 20 mg PO DAILY RF: 0
--- NOTE | 2021-01-12 15:34 | PC.NURSE ---
pt to imaging at this time
--- NOTE | 2021-01-12 15:52 | PC.NURSE ---
tough stick, multiple attempts. another rn to try.
[2021-01-12 16:20] LABS: Ammonia 18 umol/L (13-55)
[2021-01-12 16:23] LABS: Lactic Acid 1.1 mmol/L (0.5-2.0)
[2021-01-12 16:27] LABS: Alanine Aminotransferase 12 U/L (0-40); Albumin Level 3.4 g/dL (3.5-5.0); Alkaline Phosphatase 88 U/L (39-117); Anion Gap 10 (12-20); Aspartate Amino Transferase 14 U/L (5-37); Bilirubin Total 0.7 mg/dL (0.0-1.0); Blood Urea Nitrogen 22 mg/dL (9-16); Calcium 8.7 mg/dL (8.4-10.2); Carbon Dioxide 31 mmol/L (22-29); Chloride 105 mmol/L (96-108); Creatinine Clr Calc Pharmacy 48.1; Estimated Glomerular Filt Rate > 60; Glucose Random 140 mg/dL (60-115); Potassium 5.4 mmol/L (3.3-5.1); Sodium 141 mmol/L (135-145); Total Protein 6.4 g/dL (6.5-8.0)
[2021-01-12] MEDS: Sodium Polystyrene Sulfon/Sorb 15 GM/60 ML ORAL.SUSP 30 GM PO (17:12)
[2021-01-12 17:48] VITALS: PULSE 66; RESP 18
[2021-01-12 18:18] LABS: COVID-19 Test Negative (Negative); IDNOW Serial# 9DD0AD1C
[2021-01-12 20:00] VITALS: BP 128/57; PULSE 62; RESP 16; TEMP 36.7; O2SAT 99
--- NOTE | 2021-01-12 20:05 | PC.NURSE ---
PATIENT HAD 100% OF SUPPER ,DRANK 360 ML JUICE .
[2021-01-12 20:12] LABS: Appearance Urine HAZY; Color Urine DK YELLOW; Glucose Urine UA NEG (NEG); Leukocyte Esterase Urine TRACE (NEG); Nitrite Urine NEG (NEG); PH 6.5 (5.0-8.0); Specific Gravity - Urine 1.015 (1.005-1.025); UACC Culture Trigger YES; Urine Blood 3+ (NEG); Urine Ketones NEG (NEG); Urine Protein 1+ MG/DL (NEG-TRACE)
[2021-01-12 20:19] LABS: Mucus Urine TRACE /LPF
[2021-01-12 20:20] LABS: Bacteria Urine TRACE /LPF; RBC Urine 30-49 /HPF (0)
[2021-01-12 20:21] LABS: WBC Urine 0 /HPF (0-4)
[2021-01-12 20:56] LABS: MANUAL DIFF FLAG NO
[2021-01-12 20:58] LABS: Basophils Percent Auto 0.1 % (0-2); Eosinophils Absolute Auto 0.1 X10*3/uL (0.0-0.4); Eosinophils Percent Auto 0.7 % (0-4); Hematocrit 30.6 % (42-52); Hemoglobin 9.9 g/dl (14.0-18.0); Imm Gran Abs Auto 0.05 X10*3/uL (0.00-0.03); Imm Gran Pct Auto 0.5 % (0.0-0.4); Lymphocytes Absolute Auto 1.1 X10*3/uL (1.2-4.9); Lymphocytes Percent Auto 10.3 % (20-40); Mean Corpuscular HGB Conc 32.4 g/dl (31.0-36.0); Mean Corpuscular Hemoglobin 30.7 pg (27.0-33.0); Mean Corpuscular Volume 94.7 fL (80-98); Mean Platelet Volume 9.8 fL (9.4-12.4); Monocytes Absolute Auto 1.1 X10*3/uL (0.1-1.2); Monocytes Percent Auto 10.1 % (2-11); Neutrophils Absolute Auto 8.3 X10*3/uL (2.0-8.3); Neutrophils Percent Auto 78.3 % (45-73); Platelet Count 253 X10*3/uL (160-400); Red Blood Count 3.23 X10*6/uL (4.60-5.80); Red Cell Distribution Width 13.4 % (11.0-16.0); White Blood Count 10.5 X10*3/uL (4.8-10.8)
[2021-01-12 21:27] VITALS: BP 139/64; PULSE 61; RESP 16; TEMP 36.7; O2SAT 95
[2021-01-12 22:34] VITALS: BP 143/69; PULSE 63; RESP 16; TEMP 36.8; O2SAT 97
== END 2021-01-12 22:41 | disposition skilled nursing facility (03) ==
PROVIDERS: Emergency Provider Emergency Medicine; PCP Internal Medicine
DX: R41.0 Disorientation, unspecified (principal); F03.90 Unspecified dementia, unspecified severity, without behavioral disturbance, psychotic disturbance, mood disturbance, and anxiety; E87.5 Hyperkalemia; I11.0 Hypertensive heart disease with heart failure; I50.9 Heart failure, unspecified; I48.91 Unspecified atrial fibrillation; I73.9 Peripheral vascular disease, unspecified; S91.302D Unspecified open wound, left foot, subsequent encounter; S91.301D Unspecified open wound, right foot, subsequent encounter; X58.XXXD Exposure to other specified factors, subsequent encounter; Z79.01 Long term (current) use of anticoagulants; Z79.899 Other long term (current) drug therapy; Z20.822 Contact with and (suspected) exposure to COVID-19
CPT/HCPCS: 36415; 70450; 71046; 80053; 81001; 82140; 82550; 83605; 84484; 85025; 87040; 87086; 87635; 93005; 99284; 99285

== ENCOUNTER → 2021-01-15 09:33 | Outpatient (BNVA) | payer BC, SELFPAY | PROVIDERS: PCP Internal Medicine; Visit Provider Surgery Vascular Surgery ==

== ENCOUNTER 2021-01-19 10:18 | Day surgery (SDC) | payer BC, SELFPAY ==
[2021-01-19] VITALS (8 sets, daily range): BP systolic 117–160; BP diastolic 64–89; PULSE 57–71; RESP 16–18; TEMP 36.7–36.8; O2SAT 98–99; BMI 18.3
[2021-01-19 10:35] LABS: Partial Thromboplastin Time 35.5 SEC (24.1-38.0); Prothrombin Time 11.6 SEC (9.9-13.0)
[2021-01-19 10:36] LABS: MANUAL DIFF FLAG NO
[2021-01-19 10:38] LABS: Basophils Percent Auto 0.2 % (0-2); Eosinophils Absolute Auto 0.2 X10*3/uL (0.0-0.4); Eosinophils Percent Auto 1.8 % (0-4); Hematocrit 35.5 % (42-52); Hemoglobin 11.7 g/dl (14.0-18.0); Imm Gran Abs Auto 0.13 X10*3/uL (0.00-0.03); Imm Gran Pct Auto 1.3 % (0.0-0.4); Lymphocytes Absolute Auto 1.2 X10*3/uL (1.2-4.9); Lymphocytes Percent Auto 12.5 % (20-40); Mean Corpuscular Hemoglobin 30.5 pg (27.0-33.0); Mean Corpuscular Volume 92.7 fL (80-98); Mean Platelet Volume 9.3 fL (9.4-12.4); Monocytes Absolute Auto 0.9 X10*3/uL (0.1-1.2); Monocytes Percent Auto 9.1 % (2-11); Neutrophils Absolute Auto 7.4 X10*3/uL (2.0-8.3); Neutrophils Percent Auto 75.1 % (45-73); Platelet Count 336 X10*3/uL (160-400); Red Blood Count 3.83 X10*6/uL (4.60-5.80); White Blood Count 9.9 X10*3/uL (4.8-10.8)
[2021-01-19 10:39] LABS: Anion Gap 10 (12-20); Blood Urea Nitrogen 20 mg/dL (9-16); Carbon Dioxide 30 mmol/L (22-29); Chloride 101 mmol/L (96-108); Creatinine Clr Calc Pharmacy 45.8; Estimated Glomerular Filt Rate > 60; Glucose Random 95 mg/dL (60-115); Potassium 4.7 mmol/L (3.3-5.1); Sodium 136 mmol/L (135-145)
[2021-01-19 10:40] LABS: Calcium 8.7 mg/dL (8.4-10.2)
[2021-01-19] MEDS: 0.9 % Sodium Chloride 1,000 ML 100 ML IVCONT (11:10)
--- NOTE | 2021-01-19 11:11 | PC.NURSE ---
Verified last dose of Eliquis and AM medications with Ethan TAVARES from [facility].
[2021-01-19] MEDS: iohexoL 300 MG/ML 100 ML INFUS..BTL IV (12:09)
--- NOTE | 2021-01-19 12:44 | W.PM.OPN ---
Operative Note Operative Note Date of Service: 01/19/21 Narrative: Angiogram report from [facility] Preoperative diagnosis: Atherosclerosis of left lower extremity with nonhealing ulcer Postoperative diagnosis: Same Procedure: 1. Ultrasound-guided right common femoral access 2. Aortogram with left lower extremity runoff 3. star close closure Surgeon:Shashi Mandel M.D., FACS, RPVI Setter Molding And Coremaking Machines:None Anesthesia: Local with moderate conscious sedation. Total intraservice moderate sedation time was 32 minutes. I monitored the patient's level of consciousness and physiologic status continuously throughout the procedure. Specimens:none Drains:none Estimated blood loss: Less than 10 ml Implant: none Indications:5-year-old gentleman with nonhealing ulcers of the left lower extremity was worked up with noninvasive ultrasound. It demonstrated below-knee disease. He now presents for endovascular intervention. The patient has signed the informed consent after reviewing risks, complications, benefits, and alternatives previously discussed with the patient. The patient was given the opportunity to ask any additional questions or voice any concerns. All questions were answered to the patient's satisfaction. Procedure in detail: Patient was brought to the angiography suite prior to which a time-out was called for patient identification and site verification. Bilateral groins were prepped and draped in the standard surgical fashion. Under ultrasound guidance Right common femoral was punctured with micro puncture needle and wire. Subsequently a precision 4 English sheath was then placed. Bentson wire was advanced to the level of the aorta. 4 English Flush catheter was brought up and parked at the level of the renal arteries. Aortogram was then undertaken. Catheter was brought down to the level of the iliac bifurcation. Iliacs were subsequently imaged. Catheter was then brought in up and over to the left side SFA. Runoff study was then undertaken. multiple orthogonal views were undertaken. No intervention was indicated. Catheter wire sheath was then removed. 10 minutes direct pressure was held. Patient tolerated the procedure well. Interpretation of films: 1. Ultrasound demonstrates appropriate femoral puncture. Image of which was saved. 2. Aortogram demonstrates appropriate caliber aorta. Minimal disease. Appropriate take-off of the renals. 3. Iliac images demonstrate Significant tortuosity with of widened bifurcation. No significant disease. 4. Left Leg Common femoral artery: no significant disease Profundus Femoris: No significant disease Superficial femoral artery: no significant disease Popliteal artery (p1,p2,p3): no significant disease Anterior tibial artery: occludes near origin Peroneal artery: patent with good flow all the way to the level of the ankle Posterior tibial artery: patent with good flow all the way down to the level of the ankle Dorsalis pedis/plantar arch: incomplete arch with very tenuous supply. All supply seems to occlude towards the ankle on down. Conclusion: 1. Successful diagnostic angiogram. No intervention indicated. 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 Will continue with local wound care. 2. Anticoagulation status: [] This note is constructed using voice recognition software. While every effort has been made to ensure accuracy, electron beam welder setter errors may have been included. Thank you for allowing me to participate in the care of your patient. Yours sincerely, Shashi Mandel MD, FACS, R.P.V.I.
== END 2021-01-19 15:24 | disposition home or self-care (01) ==
PROVIDERS: PCP Internal Medicine; Visit Provider Surgery Vascular Surgery
DX: I70.248 Atherosclerosis of native arteries of left leg with ulceration of other part of lower leg (principal); L97.829 Non-pressure chronic ulcer of other part of left lower leg with unspecified severity; I11.0 Hypertensive heart disease with heart failure; I50.9 Heart failure, unspecified; I42.9 Cardiomyopathy, unspecified; Z79.01 Long term (current) use of anticoagulants; I48.0 Paroxysmal atrial fibrillation; I48.19 Other persistent atrial fibrillation; B37.2 Candidiasis of skin and nail; Z88.0 Allergy status to penicillin; Z88.2 Allergy status to sulfonamides
CPT/HCPCS: 36247; 36415; 75630; 76937; 80048; 85025; 85610; 85730; 99152; 99153; C1769; C1887; J2250; J3010; Q9967

== ENCOUNTER → 2021-02-19 11:12 | Outpatient (BNVA) | payer BC, SELFPAY | PROVIDERS: PCP Internal Medicine; Visit Provider Surgery Vascular Surgery ==

== ENCOUNTER 2021-03-03 10:36 | Inpatient (IN) | payer MEDICARE, BC, SELFPAY ==
[2021-03-03] VITALS (7 sets, daily range): BP systolic 126–156; BP diastolic 53–69; PULSE 55–74; RESP 12–18; TEMP 36.9–37.1; O2SAT 94–100; BMI 19.3
--- NOTE | ~2021-03-03 | XR_ITS ---
EXAMINATION: LEFT FOOT AND LEFT ANKLE. CLINICAL INFORMATION: Lateral foot wound consistent with osteomyelitis. COMPARISON: None TECHNIQUE: 3 views left foot and 3 views left toes. FINDINGS: Left foot and toe: There is diffuse osteopenia without any acute fracture or dislocation. There is loss of fifth MTP joint space with bony erosive changes and lysis involving the distal fifth metatarsal tarsal and proximal phalanx suggestive of osteomyelitis. Rest the visualized is unremarkable. Rest of the toes unremarkable. There is vascular calcifications noted. The ankle mortise and subtalar joints are normal. XR/XR foot LT min 3V IMPRESSION: Findings highly suspicious for osteomyelitis involving distal fifth metatarsal and likely proximal fibula. There is dislocation of MTP joints of digit as a result of infection. There is moderate soft tissue swelling. There is diffuse osteopenia. No acute fracture or dislocation seen.
--- NOTE | ~2021-03-03 | XR_ITS ---
EXAMINATION: LEFT FOOT AND LEFT ANKLE. CLINICAL INFORMATION: Lateral foot wound consistent with osteomyelitis. COMPARISON: None TECHNIQUE: 3 views left foot and 3 views left toes. FINDINGS: Left foot and toe: There is diffuse osteopenia without any acute fracture or dislocation. There is loss of fifth MTP joint space with bony erosive changes and lysis involving the distal fifth metatarsal tarsal and proximal phalanx suggestive of osteomyelitis. Rest the visualized is unremarkable. Rest of the toes unremarkable. There is vascular calcifications noted. The ankle mortise and subtalar joints are normal. XR/XR toe LT min 2V IMPRESSION: Findings highly suspicious for osteomyelitis involving distal fifth metatarsal and likely proximal fibula. There is dislocation of MTP joints of digit as a result of infection. There is moderate soft tissue swelling. There is diffuse osteopenia. No acute fracture or dislocation seen.
--- NOTE | 2021-03-03 10:38 | ECG_ITS ---
Test Reason : SEPSIS Blood Pressure : / mmHG Vent. Rate : 067 BPM Atrial Rate : 067 BPM P-R Int : 188 ms QRS Dur : 096 ms QT Int : 454 ms P-R-T Axes : 058 087 066 degrees QTc Int : 479 ms Normal sinus rhythm with sinus arrhythmia Moderate voltage criteria for LVH, may be normal variant ( Sokolow-Blount , Venancio product ) Nonspecific ST abnormality Abnormal ECG When compared with ECG of 12-JAN-2021 16:00, ST now depressed in Inferior leads ST elevation now present in Anterior leads T wave amplitude has increased in Lateral leads Referred By: Imani Andrew Electronically Signed By:CORNELIUS BARR MD
--- NOTE | 2021-03-03 10:51 | ED_ITS ---
HPI - Fever General Chief Complaint: Fever Stated Complaint: FOOT INFECTION Time Seen by Provider: 03/03/21 10:38 Source: patient, EMS, RN notes reviewed and old records reviewed Mode of arrival: EMS Limitations: no limitations History of Present Illness HPI Narrative: 86-year-old male with a history of CHF, EF 50%, atrial fibrillation with rapid ventricular response on eliquis, CKD, UTI, peripheral arterial disease, history of pneumonia and history of chronic bilateral foot wounds that is [facility] who presents to the ER for evaluation of a fever 101.8 this morning. He denies any physical complaints besides ongoing left foot pain and some generalized weakness today. He has been at [facility] since December and has not been able to ambulate due to pain in the foot. He has known MRSA & Pseudomonas infection of the left 2nd toe from a culture done on Jan 27. Upon review of his medication list [facility] it does not seem like he has been on any antibiotics recently. He was just seen in the office by Dr. Mandel (Vascular) on February 19 for follow-up of nonhealing left foot ulcer where toe and transmetatarsal amputation were discussed. Patient was given Tylenol and Tyler for fever and pain and brought to the emergency room for further evaluation. Dr. samano called with an expected with plan for admission and evaluation for amputation. MD elicited complaint: fever Pertinent past history: sepsis Onset (ago): unknown Exacerbating factors: nothing Relieving factors: acetaminophen Associated symptoms: myalgias and other (Generalized weakness) Treatments prior to arrival fever: acetaminophen Related Data Home Medications Medication Instructions Recorded Confirmed metoprolol tartrate 25 mg tablet 25 mg PO BID 10/18/20 03/03/21 acetaminophen 325 mg tablet 650 mg PO Q4H PRN 03/03/21 03/03/21 bisacodyl 10 mg rectal suppository 10 mg ID DAILY PRN 03/03/21 03/03/21 (Dulcolax (bisacodyl)) docusate sodium 100 mg capsule 100 mg PO DAILY 03/03/21 03/03/21 furosemide 20 mg tablet 20 mg PO DAILY 03/03/21 03/03/21 hydrocodone 5 mg-acetaminophen 325 1 tab PO Q6H PRN 03/03/21 03/03/21 mg tablet polyethylene glycol 3350 17 gram 17 g PO DAILY PRN 03/03/21 03/03/21 oral powder packet (Miralax) sennosides 8.6 mg tablet (senna) 17.2 mg PO BEDTIME 03/03/21 03/03/21 Previous Rx's Medication Instructions Recorded amiodarone 200 mg tablet 200 mg PO DAILY #90 tab 02/21/20 apixaban 5 mg tablet (Eliquis) 5 mg PO BID #180 cap 06/04/20 amlodipine 2.5 mg tablet (Norvasc) 2.5 mg PO DAILY #30 tab 10/26/20 Allergies Allergy/AdvReac Type Severity Reaction Status Date / Time streptomycin [Streptomycin] Allergy Mild UNKNOWN Verified 02/19/21 11:15 Penicillins Allergy Unknown unk Verified 02/19/21 11:15 Sulfa (Sulfonamide Allergy Unknown UNKNOWN Verified 02/19/21 11:15 Antibiotics) [SULFA (SULFONAMIDE ANTIBIOTICS)] Review of Systems Review of Systems: Constitutional: No Fever, No Chills ENT/Mouth: No sore throat, No Rhinorrhea, No Swallowing Difficulty Eyes: No Eye Pain, No Swelling, No Redness Cardiovascular: No Chest Pain, No SOB, No Orthopnea, No Edema Respiratory: No Cough, No Sputum, No Wheezing, No dyspnea Gastrointestinal: No Nausea, No Vomiting, No Diarrhea, No abdominal Pain Genitourinary: No Dysuria, No Urinary Frequency, No Hematuria Musculoskeletal: + joint pain, No Myalgias Skin: + Skin Lesions, No rash Neuro: + Weakness, No Numbness, No Dizziness, No Headache Psych: No Anxiety/Panic, No Depression Heme/Lymph: No Bruising, No Lymphadenopathy Endocrine: No Polyuria, No Polydipsia PMFSH Past Medical History Medical History Acute exacerbation of CHF (congestive heart failure) Atrial fibrillation Candidal intertrigo Cardiomyopathy Cardiomyopathy, unspecified Cellulitis CHF (congestive heart failure) Failure to thrive HTN (hypertension) HTN (hypertension) PAF (paroxysmal atrial fibrillation) Persistent atrial fibrillation Pressure sore Surgical History Hx of appendectomy Family History Family History Father No problems noted. Mother No problems noted. Social History Social History Household Members: None Household Members Other:: has cousin that lives next door, and neighbor is retired nurse that helps Housing: House Do you presently have visiting nurse or other home services: No Alcohol intake: never Patient Tobacco Use Status: Never used Tobacco Use of substances other than those prescribed or required for medical reasons: No Advance Directives: Yes Advance Directives on File: Yes Advance Directives Date on File: 04/29/20 service: Yes Current occupational status: retired Current occupation: rt handed Physical Exam Vital Signs: Vital Signs: Last Vital Signs Temp 98.6 F 03/03/21 12:01 Pulse 70 03/03/21 12:01 Resp 15 03/03/21 12:01 BP 126/53 L 03/03/21 12:01 Pulse Ox 99 03/03/21 12:01 Body Mass Index 19.3 Appearance: Alert. Oriented X3. No acute distress. Eyes: Pupils equal, round and reactive to light. ENT: Pharynx normal. Neck: Normal inspection. Neck supple. CVS: Normal heart rate and rhythm. Pulses normal. Respiratory: No respiratory distress. Breath sounds normal. Abdomen: Soft and nontender. +BS x4 Skin: Skin warm and dry. Normal skin color. Normal skin turgor. No rashes. Extremities: Venous stasis changes of bilateral lower extremities. There is a pressure ulcer and a posterior aspect of the right heel tender with minimal drainage. Left foot and ankle with moderate 1+ pitting edema 2nd toe with evidence of dry gangrene exquisitely tender. There also is a rounded 1.5 cm nonhealing ulcer at the lateral aspect of the base of the 5th toe. Neuro: Oriented X 3. Alert and oriented, nonfocal with generalized weakness noted. Equal and symmetrical strength throughout. Course Course Course Narrative: 86-year-old male with multiple medical problems and no nonhealing ulcers of the left foot and peripheral arterial disease presenting to the ER with a fever of 101.8. Concerned this is due to osteomyelitis of the toe and or foot. He was recently seen by Dr. Mandel with plans for either 2nd digit amputation versus TMA. He is afebrile and arrival after being [facility] the [facility]. He is nontoxic appearing. When dressings taken down he is in significant pain. Will plan for basic x-rays of the toe and foot as well as septic workup. His culture from January 27 grew MRSA and Pseudomonas. Will give vanco and cefepime. Repeat culture has been ordered. Reevaluation(s) Reevaluation #1: WBC 05749, lactic acid 2.2. He has mild LAUREN with BUN creatinine of 36/1.71, most likely pre-renal. He was given 1 L of IV fluids. Will hold lasix. He does have history of CHF so will be cautious with additional fluid boluses. He is hemodynamically stable at this time. X-ray of the toe and foot are showing concerning signs of osteomyelitis. Patient will be admitted for further management. Dr. Tequila Walden texted of patient's admission. Will plan to hold Eliquis with anticipation of surgical intervention. Consultations Consultation #1: Dr. Mandel vascular surgeon. MDM - Fever Medical Records Attestation: I reviewed the patient's medical records. Lab Data Attestation: I reviewed the patient's lab results. Result diagrams: 03/03/21 11:01 03/03/21 11: Labs: Lab Results 03/03/21 03/03/21 03/03/21 Range/Units 11:01 11:01 11:01 WBC 18.0 H (4.8-10.8) X10*3/uL RBC 3.87 L (4.60-5.80) X10*6/uL Hgb 11.5 L (14.0-18.0) g/dl Hct 35.7 L (42.0-52.0) % MCV 92.2 (80.0-98.0) fL MCH 29.7 (27.0-33.0) pg MCHC 32.2 (31.0-36.0) g/dl RDW 13.7 (11.0-16.0) % Plt Count 216 (160-400) X10*3/uL MPV 10.3 (9.4-12.4) fL Immature Gran % (Auto) 0.5 H (0.0-0.4) % Neut % (Auto) 89.2 H (45-73) % Lymph % (Auto) 4.8 L (20-40) % [place] % (Auto) 5.3 (2-11) % Eos % (Auto) 0.1 (0-4) % Baso % (Auto) 0.1 (0-2) % Lymph # (Auto) 0.9 L (1.2-4.9) X10*3/uL [place] # (Auto) 1.0 (0.1-1.2) X10*3/uL Eos # (Auto) 0.0 (0.0-0.4) X10*3/uL Baso # (Auto) 0.0 (0.0-0.2) X10*3/uL Abs Immat Gran (auto) 0.09 H (0.00-0.03) X10*3/uL Absolute Neuts (auto) 16.1 H (2.0-8.3) x10*3/uL Absolute Nucleated RBC 0.000 (0.0-0.012) X10*3/uL Nucleated RBC % (auto) 0.0 (0.0-0.2) /100WBC ESR 32 H (0-15) MM/HR PT (9.9-13.0) SEC INR (0.9-1.1) APTT (24.1-38.0) SEC Sodium 137 (135-145) mmol/L Potassium 5.0 (3.3-5.1) mmol/L Chloride 99 (96-108) mmol/L Carbon Dioxide 29 (22-29) mmol/L Anion Gap 14 (12-20) BUN 36 H D (9-16) mg/dL Creatinine 1.71 H (0.5-1.4) mg/dL Estim Creat Clear Calc 28.3 Estimated GFR 38 Random Glucose 130 H D (60-115) mg/dL Lactic Acid (0.5-2.0) mmol/L Calcium 9.3 D (8.4-10.2) mg/dL Magnesium 1.8 (1.6-2.6) mg/dL Total Bilirubin 0.8 (0.0-1.0) mg/dL Direct Bilirubin 0.3 (0.0-0.5) mg/dL AST 20 D (5-37) U/L ALT 20 (0-40) U/L Alkaline Phosphatase 105 (39-117) U/L C-Reactive Protein 0.68 H (< or = 0.50) mg/dL Total Protein 7.1 (6.5-8.0) g/dL Albumin 3.8 (3.5-5.0) g/dL Urine Color Urine Appearance Urine pH (5.0-8.0) Ur Specific [place] (1.005-1.025) Urine Protein (NEG-TRACE) MG/DL Urine Glucose (UA) (NEG) MG/DL Urine Ketones (NEG) MG/DL Urine Blood (NEG) Urine Nitrite (NEG) Ur Leukocyte Esterase (NEG) Urine RBC (0) /HPF Urine WBC (0-4) /HPF Ur Squamous Epith Cells /LPF Urine Bacteria /LPF COVID-19 ([facility]) (Negative) COVID-19 Clin Com 03/03/21 03/03/21 03/03/21 Range/Units 11:01 11:01 11:01 WBC (4.8-10.8) X10*3/uL RBC (4.60-5.80) X10*6/uL Hgb (14.0-18.0) g/dl Hct (42.0-52.0) % MCV (80.0-98.0) fL MCH (27.0-33.0) pg MCHC (31.0-36.0) g/dl RDW (11.0-16.0) % Plt Count (160-400) X10*3/uL MPV (9.4-12.4) fL Immature Gran % (Auto) (0.0-0.4) % Neut % (Auto) (45-73) % Lymph % (Auto) (20-40) % [place] % (Auto) (2-11) % Eos % (Auto) (0-4) % Baso % (Auto) (0-2) % Lymph # (Auto) (1.2-4.9) X10*3/uL [place] # (Auto) (0.1-1.2) X10*3/uL Eos # (Auto) (0.0-0.4) X10*3/uL Baso # (Auto) (0.0-0.2) X10*3/uL Abs Immat Gran (auto) (0.00-0.03) X10*3/uL Absolute Neuts (auto) (2.0-8.3) x10*3/uL Absolute Nucleated RBC (0.0-0.012) X10*3/uL Nucleated RBC % (auto) (0.0-0.2) /100WBC ESR (0-15) MM/HR PT 19.1 H (9.9-13.0) SEC INR 1.7 H (0.9-1.1) APTT 42.3 H (24.1-38.0) SEC Sodium (135-145) mmol/L Potassium (3.3-5.1) mmol/L Chloride (96-108) mmol/L Carbon Dioxide (22-29) mmol/L Anion Gap (12-20) BUN (9-16) mg/dL Creatinine (0.5-1.4) mg/dL Estim Creat Clear Calc Estimated GFR Random Glucose (60-115) mg/dL Lactic Acid 2.2 H* (0.5-2.0) mmol/L Calcium (8.4-10.2) mg/dL Magnesium (1.6-2.6) mg/dL Total Bilirubin (0.0-1.0) mg/dL Direct Bilirubin (0.0-0.5) mg/dL AST (5-37) U/L ALT (0-40) U/L Alkaline Phosphatase (39-117) U/L C-Reactive Protein (< or = 0.50) mg/dL Total Protein (6.5-8.0) g/dL Albumin (3.5-5.0) g/dL Urine Color Urine Appearance Urine pH (5.0-8.0) Ur Specific [place] (1.005-1.025) Urine Protein (NEG-TRACE) MG/DL Urine Glucose (UA) (NEG) MG/DL Urine Ketones (NEG) MG/DL Urine Blood (NEG) Urine Nitrite (NEG) Ur Leukocyte Esterase (NEG) Urine RBC (0) /HPF Urine WBC (0-4) /HPF Ur Squamous Epith Cells /LPF Urine Bacteria /LPF COVID-19 ([facility]) Negative (Negative) COVID-19 Clin Com See Note 03/03/21 Range/Units 12:00 WBC (4.8-10.8) X10*3/uL RBC (4.60-5.80) X10*6/uL Hgb (14.0-18.0) g/dl Hct (42.0-52.0) % MCV (80.0-98.0) fL MCH (27.0-33.0) pg MCHC (31.0-36.0) g/dl RDW (11.0-16.0) % Plt Count (160-400) X10*3/uL MPV (9.4-12.4) fL Immature Gran % (Auto) (0.0-0.4) % Neut % (Auto) (45-73) % Lymph % (Auto) (20-40) % [place] % (Auto) (2-11) % Eos % (Auto) (0-4) % Baso % (Auto) (0-2) % Lymph # (Auto) (1.2-4.9) X10*3/uL [place] # (Auto) (0.1-1.2) X10*3/uL Eos # (Auto) (0.0-0.4) X10*3/uL Baso # (Auto) (0.0-0.2) X10*3/uL Abs Immat Gran (auto) (0.00-0.03) X10*3/uL Absolute Neuts (auto) (2.0-8.3) x10*3/uL Absolute Nucleated RBC (0.0-0.012) X10*3/uL Nucleated RBC % (auto) (0.0-0.2) /100WBC ESR (0-15) MM/HR PT (9.9-13.0) SEC INR (0.9-1.1) APTT (24.1-38.0) SEC Sodium (135-145) mmol/L Potassium (3.3-5.1) mmol/L Chloride (96-108) mmol/L Carbon Dioxide (22-29) mmol/L Anion Gap (12-20) BUN (9-16) mg/dL Creatinine (0.5-1.4) mg/dL Estim Creat Clear Calc Estimated GFR Random Glucose (60-115) mg/dL Lactic Acid (0.5-2.0) mmol/L Calcium (8.4-10.2) mg/dL Magnesium (1.6-2.6) mg/dL Total Bilirubin (0.0-1.0) mg/dL Direct Bilirubin (0.0-0.5) mg/dL AST (5-37) U/L ALT (0-40) U/L Alkaline Phosphatase (39-117) U/L C-Reactive Protein (< or = 0.50) mg/dL Total Protein (6.5-8.0) g/dL Albumin (3.5-5.0) g/dL Urine Color STRAW Urine Appearance HAZY Urine pH 6.0 (5.0-8.0) Ur Specific [place] 1.010 (1.005-1.025) Urine Protein NEG (NEG-TRACE) MG/DL Urine Glucose (UA) NEG (NEG) MG/DL Urine Ketones NEG (NEG) MG/DL Urine Blood 3+ H (NEG) Urine Nitrite NEG (NEG) Ur Leukocyte Esterase NEG (NEG) Urine RBC 50-75 H (0) /HPF Urine WBC 0 (0-4) /HPF Ur Squamous Epith Cells NONE /LPF Urine Bacteria NONE /LPF COVID-19 ([facility]) (Negative) COVID-19 Clin Com ECG Data ECG #1: Attestation: I personally reviewed and interpreted this ECG as follows: ECG interpretation date: 03/03/21 ECG interpretation time: 12:35 Prior ECG tracings: available for review Interpretation: Normal sinus rhythm with sinus arrhythmia, heart rate 67 beats per minute, ID interval 180 AMS, nonspecific ST abnormality with peaked T- waves in V3 V4 V5 V6. Upon review he had peaked T-waves in V2 V3 V5 V6 in the past. Critical Care Time Critical Care Time Critical Care Time: Yes Total Critical Care Time: 42 Attestation: I have personally provided critical care time exclusive of time spent on separately billable procedures. Time includes review of lab data, radiology results, discussion with consultants, and monitoring for potential decompensation. Intervention performed as documented. Discharge Plan Discharge Clinical Impression: Osteomyelitis, LAUREN (acute kidney injury) Patient Disposition: Admitted As Inpatient Prescriptions: No Action amiodarone 200 mg tablet 200 mg PO DAILY Qty: 90 RF: 1 apixaban [Eliquis] 5 mg tablet 5 mg PO BID Qty: 180 RF: 3 metoprolol tartrate 25 mg tablet 25 mg PO BID RF: 0 amlodipine [Norvasc] 2.5 mg tablet 2.5 mg PO DAILY Qty: 30 RF: 0 acetaminophen 325 mg Tablet 650 mg PO Q4H PRN (Reason: Fever Or Pain) RF: 0 docusate sodium 100 mg Capsule 100 mg PO DAILY RF: 0 bisacodyl [Dulcolax (bisacodyl)] 10 mg Suppository 10 mg ID DAILY PRN (Reason: Constipation) RF: 0 furosemide 20 mg Tablet 20 mg PO DAILY RF: 0 hydrocodone-acetaminophen 5-325 mg Tablet 1 tab PO Q6H PRN (Reason: Pain (Scale Score 7-10)) RF: 0 polyethylene glycol 3350 [Miralax] 17 gram Powder In Packet 17 g PO DAILY PRN (Reason: Constipation) RF: 0 sennosides [senna] 8.6 mg Tablet 17.2 mg PO BEDTIME RF: 0
[2021-03-03 11:07] LABS: MANUAL DIFF FLAG NO
[2021-03-03] MEDS: cefEPime HCl 2 GM in 0.9 % Sodium Chloride 50 ML IV ×2 (11:16→22:43)
[2021-03-03 11:18] LABS: Basophils Percent Auto 0.1 % (0-2); Eosinophils Percent Auto 0.1 % (0-4); Hematocrit 35.7 % (42.0-52.0); Hemoglobin 11.5 g/dl (14.0-18.0); INTERNATIONAL NORM RATIO 1.7 (0.9-1.1); Imm Gran Abs Auto 0.09 X10*3/uL (0.00-0.03); Imm Gran Pct Auto 0.5 % (0.0-0.4); Lymphocytes Absolute Auto 0.9 X10*3/uL (1.2-4.9); Lymphocytes Percent Auto 4.8 % (20-40); Mean Corpuscular HGB Conc 32.2 g/dl (31.0-36.0); Mean Corpuscular Hemoglobin 29.7 pg (27.0-33.0); Mean Corpuscular Volume 92.2 fL (80.0-98.0); Mean Platelet Volume 10.3 fL (9.4-12.4); Monocytes Percent Auto 5.3 % (2-11); Neutrophils Absolute Auto 16.1 x10*3/uL (2.0-8.3); Neutrophils Percent Auto 89.2 % (45-73); Platelet Count 216 X10*3/uL (160-400); Prothrombin Time 19.1 SEC (9.9-13.0); Red Blood Count 3.87 X10*6/uL (4.60-5.80); Red Cell Distribution Width 13.7 % (11.0-16.0)
[2021-03-03 11:21] LABS: Partial Thromboplastin Time 42.3 SEC (24.1-38.0)
[2021-03-03 11:27] LABS: Alanine Aminotransferase 20 U/L (0-40); Albumin Level 3.8 g/dL (3.5-5.0); Alkaline Phosphatase 105 U/L (39-117); Anion Gap 14 (12-20); Aspartate Amino Transferase 20 U/L (5-37); Bilirubin Direct 0.3 mg/dL (0.0-0.5); Bilirubin Total 0.8 mg/dL (0.0-1.0); Blood Urea Nitrogen 36 mg/dL (9-16); C Reactive Protein 0.68 mg/dL (< or = 0.50); Calcium 9.3 mg/dL (8.4-10.2); Carbon Dioxide 29 mmol/L (22-29); Chloride 99 mmol/L (96-108); Creatinine Clr Calc Pharmacy 28.3; Estimated Glomerular Filt Rate 38; Glucose Random 130 mg/dL (60-115); Magnesium 1.8 mg/dL (1.6-2.6); Sodium 137 mmol/L (135-145); Total Protein 7.1 g/dL (6.5-8.0)
[2021-03-03 11:29] LABS: COVID-19 Test Negative (Negative)
--- NOTE | 2021-03-03 11:31 | PHA.MEDREC ---
MED REC COMPLETE, USED LIST FROM FACILITY, NO ISSUES Pharmacy Consult ? Medication Reconciliation Pharmacy has completed the medication reconciliation.
[2021-03-03 11:36] LABS: Lactic Acid 2.2 mmol/L (0.5-2.0)
[2021-03-03 11:48] LABS: Erythrocyte Sedimentation Rate 32 MM/HR (0-15)
[2021-03-03] MEDS: 0.9 % Sodium Chloride 1,000 ML 999 ML IVCONT (11:55)
[2021-03-03] MEDS: vancomycin HCL 750 MG in 0.9 % Sodium Chloride 250 ML 265 MG IV (11:57)
[2021-03-03 12:14] LABS: Appearance Urine HAZY; Color Urine STRAW; Glucose Urine UA NEG (NEG); Leukocyte Esterase Urine NEG (NEG); Nitrite Urine NEG (NEG); UACC Culture Trigger NO; Urine Blood 3+ (NEG); Urine Ketones NEG (NEG); Urine Protein NEG (NEG-TRACE)
[2021-03-03 12:24] LABS: RBC Urine 50-75 /HPF (0); WBC Urine 0 /HPF (0-4)
[2021-03-03 13:06] LABS: Reflex Lactate? Lactic Acid Added
[2021-03-03 13:46] LABS: ~Lactic Acid-LAB USE ONLY 1.3 mmol/L (0.5-2.0)
--- NOTE | 2021-03-03 16:14 | P.CONGS_ITS ---
History of Present Illness Consult details Consult date: 03/03/21 Narrative: Very pleasant 86-year-old gentleman well known to me. He has a prior history of nonhealing left lower extremity ulcer. He has undergone endovascular diagnostic angiogram which was negative for any significant disease. He was seen by his primary care earlier today. There was more increasing concerned about his left lower extremity. He was subsequently admitted to the hospital for workup. He now presents to us for vascular evaluation. Review of Systems Review of Systems: Yes all other systems are reviewed and are negative Constitutional: Constitutional: Reports no additional constitutional complaints ENT: Reports Normal hearing present Cardiovascular: Cardiovascular: Denies chest pain, Denies chest pain at rest, Denies chest pain with activity and Denies pedal edema Respiratory: Respiratory: Denies cough Gastrointestinal: Gastrointestinal: Denies abdominal pain Musculoskeletal: Musculoskeletal: Denies abnormal gait, Denies muscle cramps and Denies radiating pain into limb Integumentary/Breasts: Skin/Breast: Denies skin ulcer and Denies wounds Neurologic: Reports Normal hearing present and Denies abnormal gait Psychiatric: Psychiatric: Reports no additional psychiatric complaints PMFSH Past Medical History Medical History Acute exacerbation of CHF (congestive heart failure) Atrial fibrillation Candidal intertrigo Cardiomyopathy Cardiomyopathy, unspecified Cellulitis CHF (congestive heart failure) Failure to thrive HTN (hypertension) HTN (hypertension) PAF (paroxysmal atrial fibrillation) Persistent atrial fibrillation Pressure sore Family History Family History Father No problems noted. Mother No problems noted. Surgical History Surgical History Hx of appendectomy Social History Social History Household Members: None Household Members Other:: has cousin that lives next door, and neighbor is retired nurse that helps Housing: House Do you presently have visiting nurse or other home services: No Alcohol intake: never Patient Tobacco Use Status: Never used Tobacco Use of substances other than those prescribed or required for medical reasons: No Advance Directives: Yes Advance Directives on File: Yes Advance Directives Date on File: 04/29/20 service: Yes Current occupational status: retired Current occupation: rt handed Meds Allergies Allergy/AdvReac Type Severity Reaction Status Date / Time streptomycin [Streptomycin] Allergy Mild UNKNOWN Verified 02/19/21 11:15 Penicillins Allergy Unknown unk Verified 02/19/21 11:15 Sulfa (Sulfonamide Allergy Unknown UNKNOWN Verified 02/19/21 11:15 Antibiotics) [SULFA (SULFONAMIDE ANTIBIOTICS)] Active Medications: Current Medications Acetaminophen (Acetaminophen 325 Mg Tablet) 650 mg PO Q6H PRN PRN Reason: Pain, Mild (Pain Scale 1-3) Amiodarone HCl (Amiodarone Hcl 200 Mg Tablet) 200 mg PO DAILY [facility] Amlodipine Besylate (Amlodipine Besylate 2.5 Mg Tablet) 2.5 mg PO DAILY [facility]; Protocol Bisacodyl (Bisacodyl 10 Mg Supp.Rect) 10 mg CA DAILY PRN PRN Reason: Constipation Docusate Sodium (Docusate Sodium 100 Mg Capsule) 100 mg PO DAILY [facility] Cefepime HCl 2 gm/ Sodium (Chloride) 50 mls @ 100 mls/hr IV Q12H [facility] Vancomycin HCl 750 mg/ Sodium (Chloride) 265 mls @ 265 mls/hr IV Q24H [facility] Metoprolol Tartrate (Metoprolol Tartrate 25 Mg Tablet) 25 mg PO BID [facility]; Protocol Ondansetron HCl (Ondansetron Hcl 4 Mg/2 Ml Vial) 4 mg IVPUSH Q8H PRN PRN Reason: Nausea and Vomiting Pharmacy Consult (Consult Rx Perform Med Rec) 1 each MISCELLANE ONCE PRN PRN Reason: Consult order Pharmacy Consult (Consult Rx Vancomycin Dosing) 1 each MISCELLANE DAILY PRN PRN Reason: Consult order Polyethylene Glycol (Polyethylene Glycol 3350 17 Gm Powd.Pack) 17 gm PO DAILY PRN PRN Reason: Constipation Sodium Chloride (0.9 % Sodium Chloride Flush 3 Ml Syringe) [facility] Last Admin: 03/03/21 15:05 Dose: Not Given Documented by: Home Medications Medication Instructions Recorded Confirmed Last Taken Type metoprolol tartrate 25 mg tablet 25 mg PO BID 10/18/20 03/03/21 12/12/20 History acetaminophen 325 mg tablet 650 mg PO Q4H PRN 03/03/21 03/03/21 Unknown History bisacodyl 10 mg rectal suppository 10 mg CA DAILY PRN 03/03/21 03/03/21 Unknown History (Dulcolax (bisacodyl)) docusate sodium 100 mg capsule 100 mg PO DAILY 03/03/21 03/03/21 Unknown History furosemide 20 mg tablet 20 mg PO DAILY 03/03/21 03/03/21 Unknown History hydrocodone 5 mg-acetaminophen 325 1 tab PO Q6H PRN 03/03/21 03/03/21 Unknown History mg tablet polyethylene glycol 3350 17 gram 17 g PO DAILY PRN 03/03/21 03/03/21 Unknown History oral powder packet (Miralax) sennosides 8.6 mg tablet (senna) 17.2 mg PO BEDTIME 03/03/21 03/03/21 Unknown History Physical Exam Vital Signs: Vital Signs: Last Vital Signs Temp 98.6 F 03/03/21 12:01 Pulse 70 03/03/21 12:01 Resp 15 03/03/21 12:01 BP 126/53 L 03/03/21 12:01 Pulse Ox 99 03/03/21 12:01 Body Mass Index 19.3 Const: General: cooperative, healthy appearing and comfortable Or ientation/consciousness: oriented to person, oriented to place and oriented to time HENMT: Head: Yes normal to inspection Neck: Neck: Yes normal visual inspection Carotids: no bruits Chest: Chest palpation & inspection: normal inspection of the chest Resp: Effort & Inspection: normal respiratory effort and able to speak in complete sentences Auscultation: clear to auscultation bilaterally, no crackles, no rales, no rhonchi and no wheezes Cardio: Rate: regular rate Rhythm: regular rhythm Heart sounds: S1 n ormal heart sound present and S2 normal heart sound present Bruits: no ca rotid bruits Peripheral pulses: dorsalis pedis present (Bilateral DP signal) GI: Inspection: Yes normal to inspection Skin: Other: Wounds: wounds noted (Left 2nd toe exposed bone) Hair: no rmal Neuro: General: oriented to person, oriented to place and oriented to time Cranial nerves: Yes CN's II-XII intact bilaterally and Yes Normal hearing present Cognition (Neuro): normal cognition Motor exam (neuro): 5/5 motor strength present throughout Extrem: Other: venous exam: No significant superficial varicosities or spider telangiectasias, minimal edema General: No clubbing, No cyanosis and No edema Psych: Appearance: grossly normal Mental Status: mental status grossly normal Speech and movement: Normal speech and movement present Results Labs Result diagrams: 03/03/21 11:03/03/21 11: Labs: Abnormal lab results 03/03/21 03/03/21 03/03/21 Range/Units 11: 11: 11:01 WBC 18.0 H (4.8-10.8) X10*3/uL RBC 3.87 L (4.60-5.80) X10*6/uL Hgb 11.5 L (14.0-18.0) g/dl Hct 35.7 L (42.0-52.0) % Immature Gran % (Auto) 0.5 H (0.0-0.4) % Neut % (Auto) 89.2 H (45-73) % Lymph % (Auto) 4.8 L (20-40) % Lymph # (Auto) 0.9 L (1.2-4.9) X10*3/uL Abs Immat Gran (auto) 0.09 H (0.00-0.03) X10*3/uL Absolute Neuts (auto) 16.1 H (2.0-8.3) x10*3/uL ESR 32 H (0-15) MM/HR PT (9.9-13.0) SEC INR (0.9-1.1) APTT (24.1-38.0) SEC BUN 36 H D (9-16) mg/dL Creatinine 1.71 H (0.5-1.4) mg/dL Random Glucose 130 H D (60-115) mg/dL Lactic Acid (0.5-2.0) mmol/L C-Reactive Protein 0.68 H (< or = 0.50) mg/dL Urine Blood (NEG) Urine RBC (0) /HPF 03/03/21 03/03/21 03/03/21 Range/Units 11: 11: 12:00 WBC (4.8-10.8) X10*3/uL RBC (4.60-5.80) X10*6/uL Hgb (14.0-18.0) g/dl Hct (42.0-52.0) % Immature Gran % (Auto) (0.0-0.4) % Neut % (Auto) (45-73) % Lymph % (Auto) (20-40) % Lymph # (Auto) (1.2-4.9) X10*3/uL Abs Immat Gran (auto) (0.00-0.03) X10*3/uL Absolute Neuts (auto) (2.0-8.3) x10*3/uL ESR (0-15) MM/HR PT 19.1 H (9.9-13.0) SEC INR 1.7 H (0.9-1.1) APTT 42.3 H (24.1-38.0) SEC BUN (9-16) mg/dL Creatinine (0.5-1.4) mg/dL Random Glucose (60-115) mg/dL Lactic Acid 2.2 H* (0.5-2.0) mmol/L C-Reactive Protein (< or = 0.50) mg/dL Urine Blood 3+ H (NEG) Urine RBC 50-75 H (0) /HPF Short CBC 03/03/21 Range/Units 11:01 WBC 18.0 H (4.8-10.8) X10*3/uL Hgb 11.5 L (14.0-18.0) g/dl Hct 35.7 L (42.0-52.0) % Plt Count 216 (160-400) X10*3/uL BMP 03/03/21 11:01 Sodium 137 Potassium 5.0 Chloride 99 Carbon Dioxide 29 BUN 36 H D Creatinine 1.71 H Calcium 9.3 D Liver Function 03/03/21 Range/Units 11:01 Total Bilirubin 0.8 (0.0-1.0) mg/dL Direct Bilirubin 0.3 (0.0-0.5) mg/dL AST 20 D (5-37) U/L ALT 20 (0-40) U/L Alkaline Phosphatase 105 (39-117) U/L Albumin 3.8 (3.5-5.0) g/dL Urine 03/03/21 Range/Units 12:00 Urine Color STRAW Urine Appearance HAZY Urine pH 6.0 (5.0-8.0) Ur Specific [place] 1.010 (1.005-1.025) Urine Protein NEG (NEG-TRACE) MG/DL Urine Glucose (UA) NEG (NEG) MG/DL All other labs normal. Assessment and Plan (1) PAD (peripheral artery disease): Status: Acute In short patient has nonhealing left lower extremity ulceration. He will most likely require left 2nd toe amputation and lateral foot debridement. Would admit and workup. In addition would hold Eliquis. Will discuss options with patient tomorrow. Thank you for allowing me to assist in his care. If there are any questions or concerns please do not hesitate to contact us. Procedures Date of Service Date of Service: 03/03/21
--- NOTE | 2021-03-03 16:35 | PM.IMHP ---
History of Present Illness Date of Service: 03/03/21 Attending physician on admission: Kylah Bauer Chief Complaint: Left foot wound/fever 86-year-old gentleman, with past medical history significant for atrial fibrillation on Eliquis, chronic kidney disease, peripheral artery disease and chronic known healing left foot ulcer was sent from nursing facility due to fever of 101.8 this morning, patient is not aware why he was sent to Emergency Room today but complain of generalized weakness and left foot discomfort, patient has mostly bed ridden since December due to left leg pain, patient is being followed by wound clinic as well as Dr. Mandel he was recently seen by him on February 19 for nonhealing left foot ulcer and was recommended 2nd toe amputation versus transmetatarsal amputation, in the emergency room patient noted to have elevated WBC count of 18,000, lactic acid of 2.2, elevated creatinine and an x-ray of foot was concerning for left 5th metatarsal osteomyelitis in the emergency room patient received IV cefepime and vancomycin and now being admitted for continued monitoring and treatment for nonhealing left foot ulcer/osteomyelitis and cellulitis of left leg. Review of Systems Review of Systems: General no headache, no dizziness, denies fever, no chills. CVS no chest pain, no palpitation. Respiratory no cough, no shortness of breath Gastrointestinal no nausea no vomiting, no abdominal pain no urinary urgency or frequency Yes all other systems are reviewed and are negative [facility] Medical History Acute exacerbation of CHF (congestive heart failure) Atrial fibrillation Candidal intertrigo Cardiomyopathy Cardiomyopathy, unspecified Cellulitis CHF (congestive heart failure) Failure to thrive HTN (hypertension) HTN (hypertension) PAF (paroxysmal atrial fibrillation) Persistent atrial fibrillation Pressure sore Family History Father No problems noted. Mother No problems noted. Pertinent family history: No significant family history of coronary artery disease, diabetes. Surgical History Hx of appendectomy Social History Household Members: Other Household Members Other:: has cousin that lives next door, and neighbor is retired nurse that helps Housing: [place]way Do you presently have visiting nurse or other home services: No Alcohol intake: never Patient Tobacco Use Status: Never used Tobacco Advance Directives Date on File: 04/29/20 service: Yes Current occupational status: retired Current occupation: rt handed Meds Allergies Allergy/AdvReac Type Severity Reaction Status Date / Time streptomycin [Streptomycin] Allergy Mild UNKNOWN Verified 02/19/21 11:15 Penicillins Allergy Unknown unk Verified 02/19/21 11:15 Sulfa (Sulfonamide Allergy Unknown UNKNOWN Verified 02/19/21 11:15 Antibiotics) [SULFA (SULFONAMIDE ANTIBIOTICS)] Active Medications: Current Medications Acetaminophen (Acetaminophen 325 Mg Tablet) 650 mg PO Q6H PRN PRN Reason: Pain, Mild (Pain Scale 1-3) Amiodarone HCl (Amiodarone Hcl 200 Mg Tablet) 200 mg PO DAILY [facility] Amlodipine Besylate (Amlodipine Besylate 2.5 Mg Tablet) 2.5 mg PO DAILY [facility]; Protocol Bisacodyl (Bisacodyl 10 Mg Supp.Rect) 10 mg AR DAILY PRN PRN Reason: Constipation Docusate Sodium (Docusate Sodium 100 Mg Capsule) 100 mg PO DAILY [facility] Cefepime HCl 2 gm/ Sodium (Chloride) 50 mls @ 100 mls/hr IV Q12H [facility] Vancomycin HCl 750 mg/ Sodium (Chloride) 265 mls @ 265 mls/hr IV Q24H [facility] Metoprolol Tartrate (Metoprolol Tartrate 25 Mg Tablet) 25 mg PO BID [facility]; Protocol Ondansetron HCl (Ondansetron Hcl 4 Mg/2 Ml Vial) 4 mg IVPUSH Q8H PRN PRN Reason: Nausea and Vomiting Pharmacy Consult (Consult Rx Perform Med Rec) 1 each MISCELLANE ONCE PRN PRN Reason: Consult order Pharmacy Consult (Consult Rx Vancomycin Dosing) 1 each MISCELLANE DAILY PRN PRN Reason: Consult order Polyethylene Glycol (Polyethylene Glycol 3350 17 Gm Powd.Pack) 17 gm PO DAILY PRN PRN Reason: Constipation Sodium Chloride (0.9 % Sodium Chloride Flush 3 Ml Syringe) [facility] Admin: 03/03/21 15:05 Dose: Not Given Documented by: Home Medications Medication Instructions Recorded Confirmed Last Taken Type metoprolol tartrate 25 mg tablet 25 mg PO BID 10/18/20 03/03/21 12/12/20 History acetaminophen 325 mg tablet 650 mg PO Q4H PRN 03/03/21 03/03/21 Unknown History bisacodyl 10 mg rectal suppository 10 mg AR DAILY PRN 03/03/21 03/03/21 Unknown History (Dulcolax (bisacodyl)) docusate sodium 100 mg capsule 100 mg PO DAILY 03/03/21 03/03/21 Unknown History furosemide 20 mg tablet 20 mg PO DAILY 03/03/21 03/03/21 Unknown History hydrocodone 5 mg-acetaminophen 325 1 tab PO Q6H PRN 03/03/21 03/03/21 Unknown History mg tablet polyethylene glycol 3350 17 gram 17 g PO DAILY PRN 03/03/21 03/03/21 Unknown History oral powder packet (Miralax) sennosides 8.6 mg tablet (senna) 17.2 mg PO BEDTIME 03/03/21 03/03/21 Unknown History Physical Exam Vital Signs and Narrative: Vital Signs: Last Vital Signs Temp 98.6 F 03/03/21 12:01 Pulse 70 03/03/21 12:01 Resp 15 03/03/21 12:01 BP 126/53 L 03/03/21 12:01 Pulse Ox 99 03/03/21 12:01 Body Mass Index 19.3 General awake alert x3, no acute distress. Neck no JVD. CVS regular rate rhythm, Respiratory lungs clear to auscultation, no respiratory distress, no wheeze, no rhonchi. Gastrointestinal abdomen soft, nontender, bowel sounds audible, no guarding , no rigidity. Extremities Left lower extremity bigger than right, discoloration both lower extremities likely due to chronic venous stasis. 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 Psych appropriate affect Results Labs CBC and Chem 7: 03/04/21 06:30 03/04/21 06:30 Labs: Laboratory Results - last 24 hr 03/03/21 03/03/21 03/03/21 11: 11: 11:01 MCV 92.2 MCH 29.7 MCHC 32.2 RDW 13.7 Plt Count 216 MPV 10.3 Immature Gran % (Auto) 0.5 H Neut % (Auto) 89.2 H Lymph % (Auto) 4.8 L Mck[place]ley % (Auto) 5.3 Eos % (Auto) 0.1 Baso % (Auto) 0.1 Lymph # (Auto) 0.9 L [place]ck[place] # (Auto) 1.0 Eos # (Auto) 0.0 Baso # (Auto) 0.0 Abs Immat Gran (auto) 0.09 H Absolute Neuts (auto) 16.1 H Absolute Nucleated RBC 0.000 Nucleated RBC % (auto) 0.0 ESR 32 H PT INR APTT Anion Gap 14 Estim Creat Clear Calc 28.3 Estimated GFR 38 Random Glucose 130 H D Lactic Acid Lactic Acid Fup @ 2Hr Calcium 9.3 D Magnesium 1.8 Total Bilirubin 0.8 Direct Bilirubin 0.3 AST 20 D ALT 20 Alkaline Phosphatase 105 C-Reactive Protein 0.68 H Total Protein 7.1 Albumin 3.8 Urine Color Urine Appearance Urine pH Ur Specific [place] Urine Protein Urine Glucose (UA) Urine Ketones Urine Blood Urine Nitrite Ur Leukocyte Esterase Urine RBC Urine WBC Ur Squamous Epith Cells Urine Bacteria COVID-19 ([facility]) [employer] 03/03/21 03/03/21 03/03/21 11:01 11:01 11:01 MCV MCH MCHC RDW Plt Count MPV Immature Gran % (Auto) Neut % (Auto) Lymph % (Auto) [place] % (Auto) Eos % (Auto) Baso % (Auto) Lymph # (Auto) Mck[place] # (Auto) Eos # (Auto) Baso # (Auto) Abs Immat Gran (auto) Absolute Neuts (auto) Absolute Nucleated RBC Nucleated RBC % (auto) ESR PT 19.1 H INR 1.7 H APTT 42.3 H Anion Gap Estim Creat Clear Calc Estimated GFR Random Glucose Lactic Acid 2.2 H* Lactic Acid Fup @ 2Hr Calcium Magnesium Total Bilirubin Direct Bilirubin AST ALT Alkaline Phosphatase C-Reactive Protein Total Protein Albumin Urine Color Urine Appearance Urine pH Ur Specific [place] Urine Protein Urine Glucose (UA) Urine Ketones Urine Blood Urine Nitrite Ur Leukocyte Esterase Urine RBC Urine WBC Ur Squamous Epith Cells Urine Bacteria COVID-19 (KAMAR) Negative [employer] See Note 03/03/21 03/03/21 12:00 13:30 MCV MCH MCHC RDW Plt Count MPV Immature Gran % (Auto) Neut % (Auto) Lymph % (Auto) [place] % (Auto) Eos % (Auto) Baso % (Auto) Lymph # (Auto) [place] # (Auto) Eos # (Auto) Baso # (Auto) Abs Immat Gran (auto) Absolute Neuts (auto) Absolute Nucleated RBC Nucleated RBC % (auto) ESR PT INR APTT Anion Gap Estim Creat Clear Calc Estimated GFR Random Glucose Lactic Acid Lactic Acid Fup @ 2Hr 1.3 Calcium Magnesium Total Bilirubin Direct Bilirubin AST ALT Alkaline Phosphatase C-Reactive Protein Total Protein Albumin Urine Color STRAW Urine Appearance HAZY Urine pH 6.0 Ur Specific [place] 1.010 Urine Protein NEG Urine Glucose (UA) NEG Urine Ketones NEG Urine Blood 3+ H Urine Nitrite NEG Ur Leukocyte Esterase NEG Urine RBC 50-75 H Urine WBC 0 Ur Squamous Epith Cells NONE Urine Bacteria NONE COVID-19 ([facility]) COVID-19 Clin Com Imaging Radiologist's Impressions: Impressions Foot X-Ray 03/03/21 11:40 IMPRESSION: Findings highly suspicious for osteomyelitis involving distal fifth metatarsal and likely proximal fibula. There is dislocation of MTP joints of digit as a result of infection. There is moderate soft tissue swelling. There is diffuse osteopenia. No acute fracture or dislocation seen. Toe X-Ray 03/03/21 11:40 IMPRESSION: Findings highly suspicious for osteomyelitis involving distal fifth metatarsal and likely proximal fibula. There is dislocation of MTP joints of digit as a result of infection. There is moderate soft tissue swelling. There is diffuse osteopenia. No acute fracture or dislocation seen. Assessment and Plan (1) Osteomyelitis: Qualifiers: Laterality: left Osteomyelitis location: foot Osteomyelitis type: unspecified type Qualified Code(s): M86.9 - Osteomyelitis, unspecified Status: Acute (2) LAUREN (acute kidney injury): Status: Acute (3) PAD (peripheral artery disease): Status: Acute 85-year-old male with history of heart failure with reduced ejection fraction, atrial fibrillation, CKD, status post multiple recent admission for mechanical fall and hip fracture status post ORIF in October and then again admitted in December for sepsis related to severe aspiration and left lower extremity cellulitis patient is currently recurrent incident of nursing facility was sent to [facility] due to fever/ left foot pain. Left foot nonhealing ulcer/cellulitis and osteomyelitis Patient noted to have fever and significantly elevated leukocytosis however do not meet sepsis criteria X-ray of foot concerning for osteomyelitis of 5th metatarsal bone. Will place patient on IV cefepime and vancomycin Follow CBC and 2 set of blood culture Patient being followed by Dr. Mandel as outpatient and was recommended to undergo toe versus transmetatarsal amputation Obtain ID and vascular surgery consultation Lactic acidosis Likely due to dehydration, lactic acid normalized after IV hydration Acute kidney injury Likely pre renal Will hold Lasix follow BMP closely, avoid nephrotoxic History of chronic atrial fibrillation Currently normal sinus rhythm will continue beta-blockers and amiodarone hold Eliquis for possible toe amputation Severe protein calorie malnutrition.? As evidence by BMI 18.8, and loss of subcutaneous fat and muscle mass Will add supplements History of chronic heart failure with reduced EF no acute exacerbation Hold Lasix due to LAUREN Hypertension continue amlodipine, and metoprolol follow BP closely dvt ppx - on eliquis will hold for possible surgical intervention, will place patient on subcu heparin Code status.? MOLST form in chart indicates wishes to be DNR/DNI Quality Stroke Does the patient have a stroke diagnosis?: No VTE Prior VTE?: No VTE Risk Level:: Medical - moderate - high VTE Device Contraindication: Treatment Not Indicated VTE Drug Contraindication: N/A - Med Ordered
[2021-03-03] MEDS: Metoprolol Tartrate 25 MG TABLET PO (20:57)
[2021-03-04] VITALS (10 sets, daily range): BP systolic 126–166; BP diastolic 60–76; PULSE 56–62; RESP 14–19; TEMP 36.1–36.9; O2SAT 97–100; BMI 19.3
[2021-03-04 06:50] LABS: MANUAL DIFF FLAG NO
[2021-03-04 07:11] LABS: Basophils Percent Auto 0.1 % (0-2); Eosinophils Percent Auto 0.4 % (0-4); Hematocrit 34.1 % (42.0-52.0); Imm Gran Abs Auto 0.04 X10*3/uL (0.00-0.03); Imm Gran Pct Auto 0.5 % (0.0-0.4); Lymphocytes Absolute Auto 1.2 X10*3/uL (1.2-4.9); Lymphocytes Percent Auto 14.2 % (20-40); Mean Corpuscular HGB Conc 32.3 g/dl (31.0-36.0); Mean Corpuscular Hemoglobin 29.8 pg (27.0-33.0); Mean Corpuscular Volume 92.4 fL (80.0-98.0); Mean Platelet Volume 10.7 fL (9.4-12.4); Monocytes Absolute Auto 0.9 X10*3/uL (0.1-1.2); Neutrophils Absolute Auto 6.4 x10*3/uL (2.0-8.3); Neutrophils Percent Auto 74.8 % (45-73); Platelet Count 193 X10*3/uL (160-400); Red Blood Count 3.69 X10*6/uL (4.60-5.80); Red Cell Distribution Width 13.6 % (11.0-16.0); White Blood Count 8.5 X10*3/uL (4.8-10.8)
--- NOTE | 2021-03-04 07:17 | PC.NURSE ---
sleeping, sb on monitor, report from zakiya
[2021-03-04 07:21] LABS: Anion Gap 10 (12-20); Blood Urea Nitrogen 28 mg/dL (9-16); Calcium 9.4 mg/dL (8.4-10.2); Carbon Dioxide 32 mmol/L (22-29); Chloride 101 mmol/L (96-108); Creatinine Clr Calc Pharmacy 33.8; Estimated Glomerular Filt Rate 47; Glucose Random 105 mg/dL (60-115); Potassium 4.3 mmol/L (3.3-5.1); Sodium 139 mmol/L (135-145)
--- NOTE | 2021-03-04 07:56 | HE.PHANOTE ---
Vancomycin Addemen Patient SCr is improving. No loading dose was given. If patient continue with 750 mg Q24H, it would take 5 dose to get to steady state. Will give a a one time 1250 mg dose to get patient to steady state sooner. New expected AUC with a one time dose of 1250 mg then 750 mg Q24H will be 451 with a trough on 14.6 Urban BallesterosD
--- NOTE | 2021-03-04 08:03 | PC.NURSE ---
power of trust and estates attorney kaylin choi is available at [phone]
[2021-03-04] MEDS: 0.9 % Sodium Chloride Flush 3 ML SYRINGE IVFLUSH ×2 (08:09→20:33)
[2021-03-04] MEDS: Amiodarone HCL 200 MG TABLET PO (08:13)
[2021-03-04] MEDS: amLODIPine Besylate 2.5 MG TABLET PO (08:14)
[2021-03-04] MEDS: Metoprolol Tartrate 25 MG TABLET PO ×2 (08:14→20:28)
[2021-03-04] MEDS: Docusate Sodium 100 MG CAPSULE PO (08:15)
--- NOTE | 2021-03-04 09:01 | MHC.CM.PN ---
PATIENT IS ASLEEP AND DOES NOT WAKE UP TO THIS BED MACHINE OPERATOR'S ATTEMPTS. CALL TO HCP (COUSIN) [place] @ [phone]. PATIENT IS IN FROM [facility] [address] AND PLAN IS FOR HIS RETURN. PATIENT AND FAMILY ARE AGREEABLE TO AMPUTATION ACCORDING TO [place]. SHE IS AWARE THAT VASCULAR SURGEON WILL SEE PATIENT. PATIENT DOES AMBULATE WITH A USE OF A WALKER AT [facility] BUT RECENTLY HAS NOT BEEN ABLE TO DO SO AND RELIES ON A WHEEL CHAIR TO MOBILIZE. REFERRAL PLACED TO [facility] TO FOLLOW FOR HIS RETURN COPY OF HCP PRINTED AND PLACED IN CHART.
[2021-03-04] MEDS: cefEPime HCl 2 GM in 0.9 % Sodium Chloride 50 ML IV ×2 (09:39→21:11)
[2021-03-04] MEDS: vancomycin HCL 1,250 MG in 0.9 % Sodium Chloride 250 ML 166.67 MG IV (12:16)
--- NOTE | 2021-03-04 13:14 | P.PNIM_ITS ---
Subjective Subjective Date of Service: 03/04/21 Interval History: Being followed for left foot osteo and cellulitis feeling better this morning, no fever chills overnight, complaining of pain left foot worse with ambulation. Review of Systems General no headache, no dizziness, denies fever, no chills.? CVS no chest pain, no palpitation.? Respiratory no cough, no shortness of breath Gastrointestinal no nausea no vomiting, no abdominal pain no urinary urgency or frequency? all other systems are reviewed and are negative Physical Exam Vital Signs: Vital Signs: Last Vital Signs Temp 96.9 F 03/04/21 11:36 Pulse 57 03/04/21 11:36 Resp 18 03/04/21 11:36 BP 155/72 H 03/04/21 11:36 Pulse Ox 100 03/04/21 11:36 BMI result Body Mass Index 19.3 General awake alert x3, no acute distress.? Neck no JVD. CVS? regular rate rhythm, Respiratory lungs clear to auscultation, no respiratory distress, no wheeze, no rhonchi. Gastrointestinal abdomen soft, nontender, bowel sounds audible, no guarding , no rigidity. Extremities Left lower extremity bigger than right, discoloration both lower extremities likely due to chronic venous stasis. 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 Neuro nonfocal. Psych appropriate affect Objective Data Active Medications Acetaminophen (Acetaminophen 325 Mg Tablet) 650 mg PO Q6H PRN PRN Reason: Pain, Mild (Pain Scale 1-3) Amiodarone HCl (Amiodarone Hcl 200 Mg Tablet) 200 mg PO DAILY [facility] Last Admin: 03/04/21 08:13 Dose: 200 mg Documented by: CRISPIN Amlodipine Besylate (Amlodipine Besylate 2.5 Mg Tablet) 2.5 mg PO DAILY [facility]; Protocol Last Admin: 03/04/21 08:14 Dose: 2.5 mg Documented by: CRISPIN Bisacodyl (Bisacodyl 10 Mg Supp.Rect) 10 mg ME DAILY PRN PRN Reason: Constipation Docusate Sodium (Docusate Sodium 100 Mg Capsule) 100 mg PO DAILY [facility] Last Admin: 03/04/21 08:15 Dose: 100 mg Documented by: CRISPIN Heparin Sodium (Porcine) (Heparin Sodium,Porcine 5,000 Unit/Ml Vial) 5,000 unit SUBCUT Q12H [facility] Cefepime HCl 2 gm/ Sodium (Chloride) 50 mls @ 100 mls/hr IV Q12H [facility] Last Infusion: 03/04/21 11:37 Dose: 0 mls/hr Documented by: MANUELA Vancomycin HCl 750 mg/ Sodium (Chloride) 265 mls @ 265 mls/hr IV Q24H [facility] Vancomycin HCl 1,250 mg/ (Sodium Chloride) 250 mls @ 166.667 mls/hr IV ONCE ONE Stop: 03/04/21 13:29 Last Admin: 03/04/21 12:16 Dose: 166.67 mls/hr Documented by: MANUELA Metoprolol Tartrate (Metoprolol Tartrate 25 Mg Tablet) 25 mg PO BID [facility]; Protocol Last Admin: 03/04/21 08:14 Dose: 25 mg Documented by: CRISPIN Ondansetron HCl (Ondansetron Hcl 4 Mg/2 Ml Vial) 4 mg IVPUSH Q8H PRN PRN Reason: Nausea and Vomiting Pharmacy Consult (Consult Rx Perform Med Rec) 1 each MISCELLANE ONCE PRN PRN Reason: Consult order Pharmacy Consult (Consult Rx Vancomycin Dosing) 1 each MISCELLANE DAILY PRN PRN Reason: Consult order Polyethylene Glycol (Polyethylene Glycol 3350 17 Gm Powd.Pack) 17 gm PO DAILY PRN PRN Reason: Constipation Sodium Chloride (0.9 % Sodium Chloride Flush 3 Ml Syringe) 3 ml IVFLUSH QSHIFT [facility] Last Admin: 03/04/21 08:09 Dose: 3 ml Documented by: CRISPIN Labs CBC & Chem 7: 03/04/21 06:30 03/04/21 06:30 Labs: Laboratory Results - last 24 hr 03/03/21 03/04/21 03/04/21 13:30 06:30 06:30 MCV 92.4 MCH 29.8 MCHC 32.3 RDW 13.6 Plt Count 193 MPV 10.7 Immature Gran % (Auto) 0.5 H Neut % (Auto) 74.8 H Lymph % (Auto) 14.2 L Reynolds % (Auto) 10.0 Eos % (Auto) 0.4 Baso % (Auto) 0.1 Lymph # (Auto) 1.2 Reynolds # (Auto) 0.9 Eos # (Auto) 0.0 Baso # (Auto) 0.0 Abs Immat Gran (auto) 0.04 H Absolute Neuts (auto) 6.4 Absolute Nucleated RBC 0.000 Nucleated RBC % (auto) 0.0 Anion Gap 10 L Estim Creat Clear Calc 33.8 Estimated GFR 47 Random Glucose 105 Lactic Acid Fup @ 2Hr 1.3 Calcium 9.4 Microbiology Microbiology Results: Microbiology 03/03/21 11:01 Blood Culture - Preliminary Blood - Venous No growth after 24 hours. 03/03/21 11:14 Gram Stain - Final Foot Left Routine Culture - Preliminary Gram negative charles Assessment and Plan (1) Osteomyelitis: Status: Acute (2) LAUREN (acute kidney injury): Status: Acute (3) Cellulitis: Status: Acute (4) Severe protein-calorie malnutrition: Status: Acute Assessment and Plan: 85-year-old male with history of heart failure with reduced ejection fraction, atrial fibrillation, CKD, status post multiple recent admission for mechanical fall and hip fracture status post ORIF in October and then again admitted in December for sepsis related to severe aspiration and left lower extremity cellulitis patient is currently recurrent incident of nursing facility was sent to [facility] due to fever/ left foot pain. Left foot nonhealing ulcer/cellulitis and osteomyelitis No fever since hospitalization , WBC normalized X-ray of foot concerning for osteomyelitis of 5th metatarsal bone. on IV cefepime and vancomycin day 2 2 set of blood culture pending, left foot wound culture growing Gram-negative charles Patient seen by Dr. Mandel he recommend left foot transmetatarsal amputation ,patient agreed for procedure , will keep him NPO and continue to hold Eliquis Lactic acidosis Resolved, was Likely due to dehydration. Acute kidney injury Likely pre renal , creatinine trending down from 1.7 to 1.4, continue to hold Lasix History of chronic atrial fibrillation Currently normal sinus rhythm will continue beta-blockers and amiodarone hold Eliquis for possible toe amputation Severe protein calorie malnutrition.? As evidence by BMI 18.8, and loss of subcutaneous fat and muscle mass cont.supplements History of chronic heart failure with reduced EF no acute exacerbation Hold Lasix due to LAUREN Hypertension continue amlodipine, and metoprolol BP borderline high will follow dvt ppx - on subcu heparin Code status.? Patient wishes to be DNR/DNI Quality Stroke Does the patient have a stroke diagnosis?: No VTE Prior VTE?: No VTE Risk Level:: Medical - moderate - high VTE Device Contraindication: Treatment Not Indicated VTE Drug Contraindication: N/A - Med Ordered
[2021-03-04] MEDS: Dextrose 5 % and 0.45 % NaCl 500 ML 80 ML IVCONT (13:56)
[2021-03-04] MEDS: Heparin Sodium,Porcine 5,000 UNIT/ML VIAL 5000 UNIT SUBCUT (14:03)
--- NOTE | 2021-03-04 14:41 | P.CNID_ITS ---
History of Present Illness Data of Consult Service Date: 03/04/21 Requesting physician: Kylah Bauer Primary Care Provider: Bimal Velez MD HPI Reason for consult: bacteremia,left foot infection He presents to hospital with weakness and left leg discomfort. He has left second toe DIP darkness and well as discomfort lateral foot He had hip fracture in October and then LLE cellultis in December reported He has had Pseudomonas with resistance to antimicrobials from prior leg culture as well as MRSA Review of Systems Review of Systems: Yes all other systems are reviewed and are negative [facility] Past Medical History Medical History Acute exacerbation of CHF (congestive heart failure) Atrial fibrillation Candidal intertrigo Cardiomyopathy Cardiomyopathy, unspecified Cellulitis CHF (congestive heart failure) Failure to thrive HTN (hypertension) HTN (hypertension) PAF (paroxysmal atrial fibrillation) Persistent atrial fibrillation Pressure sore Family History Family History Father No problems noted. Mother No problems noted. Family history: reviewed and not pertinent Surgical History Surgical History Hx of appendectomy Social History Social History Household Members: Other Household Members Other:: has cousin that lives next door, and neighbor is retired nurse that helps Housing: Detention Do you presently have visiting nurse or other home services: No Alcohol intake: never Patient Tobacco Use Status: Never used Tobacco Advance Directives Date on File: 04/29/20 service: Yes Current occupational status: retired Current occupation: rt handed Meds Allergies Allergy/AdvReac Type Severity Reaction Status Date / Time streptomycin [Streptomycin] Allergy Mild UNKNOWN Verified 02/19/21 11:15 Penicillins Allergy Unknown unk Verified 02/19/21 11:15 Sulfa (Sulfonamide Allergy Unknown UNKNOWN Verified 02/19/21 11:15 Antibiotics) [SULFA (SULFONAMIDE ANTIBIOTICS)] Active Medications: Current Medications Acetaminophen (Acetaminophen 325 Mg Tablet) 650 mg PO Q6H PRN PRN Reason: Pain, Mild (Pain Scale 1-3) Amiodarone HCl (Amiodarone Hcl 200 Mg Tablet) 200 mg PO DAILY [facility] Last Admin: 03/04/21 08:13 Dose: 200 mg Documented by: Amlodipine Besylate (Amlodipine Besylate 2.5 Mg Tablet) 2.5 mg PO DAILY [facility]; Protocol Last Admin: 03/04/21 08:14 Dose: 2.5 mg Documented by: Bisacodyl (Bisacodyl 10 Mg Supp.Rect) 10 mg [place] DAILY PRN PRN Reason: Constipation Docusate Sodium (Docusate Sodium 100 Mg Capsule) 100 mg PO DAILY [facility] Last Admin: 03/04/21 08:15 Dose: 100 mg Documented by: Heparin Sodium (Porcine) (Heparin Sodium,Porcine 5,000 Unit/Ml Vial) 5,000 unit SUBCUT Q12H [facility] Last Admin: 03/04/21 14:03 Dose: 5,000 unit Documented by: Cefepime HCl 2 gm/ Sodium (Chloride) 50 mls @ 100 mls/hr IV Q12H [facility] Last Infusion: 03/04/21 11:37 Dose: Infused Documented by: Vancomycin HCl 750 mg/ Sodium (Chloride) 265 mls @ 265 mls/hr IV Q24H [facility] Dextrose/Sodium Chloride (D51/2ns) 500 mls @ 80 mls/hr IVCONT .Q6H15M [facility] Stop: 03/04/21 19:44 Last Admin: 03/04/21 13:56 Dose: 80 mls/hr Documented by: Metoprolol Tartrate (Metoprolol Tartrate 25 Mg Tablet) 25 mg PO BID [facility]; Protocol Last Admin: 03/04/21 08:14 Dose: 25 mg Documented by: Ondansetron HCl (Ondansetron Hcl 4 Mg/2 Ml Vial) 4 mg IVPUSH Q8H PRN PRN Reason: Nausea and Vomiting Pharmacy Consult (Consult Rx Perform Med Rec) 1 each MISCELLANE ONCE PRN PRN Reason: Consult order Pharmacy Consult (Consult Rx Vancomycin Dosing) 1 each MISCELLANE DAILY PRN PRN Reason: Consult order Polyethylene Glycol (Polyethylene Glycol 3350 17 Gm Powd.Pack) 17 gm PO DAILY PRN PRN Reason: Constipation Sodium Chloride (0.9 % Sodium Chloride Flush 3 Ml Syringe) 3 ml IVFLUSH QSHIFT [facility] Last Admin: 03/04/21 08:09 Dose: 3 ml Documented by: Home Medications Medication Instructions Recorded Confirmed Last Taken Type metoprolol tartrate 25 mg tablet 25 mg PO BID 10/18/20 03/03/21 12/12/20 History acetaminophen 325 mg tablet 650 mg PO Q4H PRN 03/03/21 03/03/21 Unknown History bisacodyl 10 mg rectal suppository 10 mg [place] DAILY PRN 03/03/21 03/03/21 Unknown History (Dulcolax (bisacodyl)) docusate sodium 100 mg capsule 100 mg PO DAILY 03/03/21 03/03/21 Unknown History furosemide 20 mg tablet 20 mg PO DAILY 03/03/21 03/03/21 Unknown History hydrocodone 5 mg-acetaminophen 325 1 tab PO Q6H PRN 03/03/21 03/03/21 Unknown History mg tablet polyethylene glycol 3350 17 gram 17 g PO DAILY PRN 03/03/21 03/03/21 Unknown History oral powder packet (Miralax) sennosides 8.6 mg tablet (senna) 17.2 mg PO BEDTIME 03/03/21 03/03/21 Unknown History Physical Exam Vital Signs: Vital Signs: Last Vital Signs Temp 96.9 F 03/04/21 11:36 Pulse 57 03/04/21 11:36 Resp 18 03/04/21 11:36 BP 155/72 H 03/04/21 11:36 Pulse Ox 100 03/04/21 11:36 BMI result Body Mass Index 19.3 Const: General: cooperative Eyes: General: appearance normal, both eyes and all related structures Resp: Effort & Inspection: normal respiratory effort Cardio: Rate: regular rate Rhythm: regular rhythm GI: Palpation (GI): Soft to palpation and nontender : General: Yes no CVA tenderness Back/Spine/Pelvis: Back: no CVA tenderness Skin: General skin exam: no rashes or lesions noted Extrem: Other: lateral left foot 1 cm dried ulcer left DIP gangrene heel small area ulcer Results Labs CBC & Chem 7: 03/04/21 06:30 03/04/21 06:30 Labs: Short CBC 03/04/21 Range/Units 06:30 WBC 8.5 (4.8-10.8) X10*3/uL Hgb 11.0 L (14.0-18.0) g/dl Hct 34.1 L (42.0-52.0) % Plt Count 193 (160-400) X10*3/uL BMP 03/04/21 06:30 Sodium 139 Potassium 4.3 Chloride 101 Carbon Dioxide 32 H BUN 28 H Creatinine 1.43 H Calcium 9.4 Microbiology Microbiology Results: Microbiology 03/03/21 11:14 Blood - Venous Blood Culture - Preliminary No growth after 24 hours. 03/03/21 11:01 Blood - Venous Blood Culture - Preliminary No growth after 24 hours. 03/03/21 11:14 Foot Left Gram Stain - Final 03/03/21 11:14 Foot Left Routine Culture - Preliminary Gram negative charles Assessment and Plan (1) Osteomyelitis: Qualifiers: Laterality: left Osteomyelitis location: foot Osteomyelitis type: unspecified type Qualified Code(s): M86.9 - Osteomyelitis, unspecified Status: Acute He has unremarkable urinalysis. Cause of bacteremia likely Pseudomonas or other gram negative from leg He has been offered amputation of digit per Dr Mandel Continue Cefepime now as Pseudomonas has had prior sensitivity Consider Zerbaxa if resistant to other organisms I think if gram negative Pseudomonas from foot it is imperative that Dr Mandel continue to see patient and do amputation of affected area,at least second toe as condition now lifethreatening with bacteremia Would check echo due to possible chronic infection of foot and maybe long standing bacteremia.
--- NOTE | 2021-03-04 14:55 | MHC.CLN ---
NUTRITION NUTRITION CONSULT FOR SKIN ISSUES. VENOUS/STASIS ULCERS TO LEFT FOOT/TOE. NOT PRESSURE INJURIES. PATIENT WITH DX SEVERE PROTEIN CALORIE MALNUTRITION. SEVERE FAT DEPLETION IN TRICEP, SEVERE MUSCLE DEPLETION IN CLAVICLE. 10/18/20 WEIGHT=81.647 KG. CURRENT WEIGHT=64.6 KG. SIGNIFICANT WEIGHT LOSS X 4 MONTHS, -21%. STATED THAT HAS LOST A LOT OF WEIGHT. DIET=CARDIAC, SUPPLEMENT ENSURE TID (1050 KCAL, 39 G PROTEIN).
--- NOTE | 2021-03-04 16:35 | P.PNVS_ITS ---
Subjective Subjective Date of Service: 03/04/21 Patient reports: no new complaints and feels better Interval history: Very pleasant 86 yo male presents for follow up regarding nonhealing left 2nd toe and lateral foot ulcer. he has had no issues overnight. Was still being housed in the ER this morning. Awaiting floor bed Physical Exam Vital Signs: Vital Signs: Last Vital Signs Temp 97.3 F 03/04/21 15:45 Pulse 56 03/04/21 15:45 Resp 14 03/04/21 15:45 BP 131/60 03/04/21 15:45 Pulse Ox 99 03/04/21 15:45 BMI result Body Mass Index 19.3 Const: General: cooperative, healthy appearing and no acute distress Orientation/consciousness: oriented to person, oriented to place and oriented to time HENMT: Head: Yes normal to inspection Neck: Carotids: no bruits Chest: Chest palpation & inspection: normal inspection of the chest Resp: Effort & Inspection: normal respiratory effort and able to speak in complete sentences Auscultation: clear to auscultation bilaterally Cardio: Rate: regular rate Heart sounds: S1 normal heart sound present and S2 normal heart sound present GI: Inspection: Yes normal to inspection Skin: General skin exam: no rashes or lesions noted Wounds: wounds noted (left foot as pictured yesterday) Neuro: General: oriented to person, oriented to place, oriented to time and CN's II-XI intact bilaterally Extrem: General: Yes normal to inspection, Yes full ROM and Yes no clubbing, cyanosis or edema Psych: Appearance: grossly normal and well kempt Speech and movement: Normal speech and movement present Affect: normal affect Progress Note: A&P Assessment and plan (1) PAD (peripheral artery disease): Status: Acute Assessment and Plan: Patient has nonhealing left foot ulcers. Will plan for left foot transmetatarsal amputation. Risks/benefits/complications were discussed in detail with the patient including but not limited to bleeding, infection, nonhealing, and furt her amputation. He was in agreement and would like to proceed. Hospitalist was present at the time of discussion. The patient had an opportunity to ask questions regarding the treatment plan. All questions were answered. Imaging studies, laboratory studies and physical exam results were discussed and reviewed in detail. No major barriers to understanding were identified. The patient expressed understanding and agreement with the above treatment plan. Fall Risk Details Current Medications: Current Medications Acetaminophen (Acetaminophen 325 Mg Tablet) 650 mg PO Q6H PRN PRN Reason: Pain, Mild (Pain Scale 1-3) Amiodarone HCl (Amiodarone Hcl 200 Mg Tablet) 200 mg PO DAILY [facility] Last Admin: 03/04/21 08:13 Dose: 200 mg Documented by: Amlodipine Besylate (Amlodipine Besylate 2.5 Mg Tablet) 2.5 mg PO DAILY [facility]; Protocol Last Admin: 03/04/21 08:14 Dose: 2.5 mg Documented by: Bisacodyl (Bisacodyl 10 Mg Supp.Rect) 10 mg [place] DAILY PRN PRN Reason: Constipation Docusate Sodium (Docusate Sodium 100 Mg Capsule) 100 mg PO DAILY [facility] Last Admin: 03/04/21 08:15 Dose: 100 mg Documented by: Heparin Sodium (Porcine) (Heparin Sodium,Porcine 5,000 Unit/Ml Vial) 5,000 unit SUBCUT Q12H [facility] Last Admin: 03/04/21 14:03 Dose: 5,000 unit Documented by: Cefepime HCl 2 gm/ Sodium (Chloride) 50 mls @ 100 mls/hr IV Q12H [facility] Last Infusion: 03/04/21 11:37 Dose: Infused Documented by: Vancomycin HCl 750 mg/ Sodium (Chloride) 265 mls @ 265 mls/hr IV Q24H [facility] Dextrose/Sodium Chloride (D51/2ns) 500 mls @ 80 mls/hr IVCONT .Q6H15M [facility] Stop: 03/04/21 19:44 Last Admin: 03/04/21 13:56 Dose: 80 mls/hr Documented by: Metoprolol Tartrate (Metoprolol Tartrate 25 Mg Tablet) 25 mg PO BID [facility]; Protocol Last Admin: 03/04/21 08:14 Dose: 25 mg Documented by: Ondansetron HCl (Ondansetron Hcl 4 Mg/2 Ml Vial) 4 mg IVPUSH Q8H PRN PRN Reason: Nausea and Vomiting Pharmacy Consult (Consult Rx Perform Med Rec) 1 each MISCELLANE ONCE PRN PRN Reason: Consult order Pharmacy Consult (Consult Rx Vancomycin Dosing) 1 each MISCELLANE DAILY PRN PRN Reason: Consult order Polyethylene Glycol (Polyethylene Glycol 3350 17 Gm Powd.Pack) 17 gm PO DAILY PRN PRN Reason: Constipation Sodium Chloride (0.9 % Sodium Chloride Flush 3 Ml Syringe) 3 ml IVFLUSH QSHIFT [facility] Last Admin: 03/04/21 15:36 Dose: Not Given Documented by: Time Spent With Patient Time: Total time spent is greater than 50% in coordination of care (as documented) at patient's floor/unit and/or counseling patient: Time with patient: 15 - 24 minutes Procedures Date of Service Date of Service: 03/04/21 Quality Stroke Does the patient have a stroke diagnosis?: No VTE Prior VTE?: No VTE Risk Level:: Medical - moderate - high VTE Device Contraindication: Treatment Not Indicated VTE Drug Contraindication: N/A - Med Ordered
[2021-03-04] MEDS: Acetaminophen 325 MG TABLET 650 MG PO (20:28)
[2021-03-05] VITALS (15 sets, daily range): BP systolic 121–145; BP diastolic 58–77; PULSE 51–72; RESP 12–18; TEMP 36.2–37.2; O2SAT 97–100
[2021-03-05 06:42] LABS: Anion Gap 11 (12-20); Blood Urea Nitrogen 27 mg/dL (9-16); Calcium 9.2 mg/dL (8.4-10.2); Carbon Dioxide 30 mmol/L (22-29); Chloride 101 mmol/L (96-108); Creatinine Clr Calc Pharmacy 36.4; Estimated Glomerular Filt Rate 51; Glucose Random 100 mg/dL (60-115); Potassium 4.7 mmol/L (3.3-5.1); Sodium 137 mmol/L (135-145)
--- NOTE | 2021-03-05 07:12 | HO.ANESPROP2 ---
HPI - Anesthesia Eval Consult details Narrative: 86 M for transmetatarsal amputation on left side . [facility] Active Problems Active Problems: All Active Problems (Updated 03/03/21 @ 12:36 by NELSON gAuilar) Osteomyelitis (Acute) LAUREN (acute kidney injury) (Acute) PAD (peripheral artery disease) (Acute) Cellulitis (Acute) Pneumonia (Acute) Severe protein-calorie malnutrition (Acute) Aspiration pneumonia (Acute) Status post hip hemiarthroplasty (Acute) Fracture of femoral neck, left (Acute) Acute on chronic systolic (congestive) heart failure (Acute) UTI (urinary tract infection) (Acute) Sepsis (Acute) Chest pain (Acute) CHF exacerbation (Acute) Acute kidney injury superimposed on CKD (Acute) CHF (congestive heart failure) (Acute) CRF (chronic renal failure) (Acute) Screening for prostate cancer (Acute) Essential hypertension (Acute) Atrial fibrillation with RVR (Acute) CHF (congestive heart failure) (Acute) Pneumonia (Acute) Cardiomyopathy, unspecified (Acute) Past Medical History Medical History Acute exacerbation of CHF (congestive heart failure) Atrial fibrillation Candidal intertrigo Cardiomyopathy Cardiomyopathy, unspecified Cellulitis CHF (congestive heart failure) Failure to thrive HTN (hypertension) HTN (hypertension) PAF (paroxysmal atrial fibrillation) Persistent atrial fibrillation Pressure sore Family History Family History Father No problems noted. Mother No problems noted. Family history of problems with anesthesia: No Surgical History Surgical History Hx of appendectomy History of Problems with Anesthesia: No Social History Social History Household Members: Other Household Members Other:: has cousin that lives next door, and neighbor is retired nurse that helps Housing: Jail Do you presently have visiting nurse or other home services: No Alcohol intake: never Patient Tobacco Use Status: Never used Tobacco Advance Directives Date on File: 04/29/20 service: Yes Current occupational status: retired Current occupation: rt handed Meds Allergies Allergy/AdvReac Type Severity Reaction Status Date / Time streptomycin [Streptomycin] Allergy Mild UNKNOWN Verified 11/18/21 11:15 Penicillins Allergy Unknown unk Verified 02/19/21 11:15 Sulfa (Sulfonamide Allergy Unknown UNKNOWN Verified 02/19/21 11:15 Antibiotics) [SULFA (SULFONAMIDE ANTIBIOTICS)] Active Medications: Current Medications Acetaminophen (Acetaminophen 325 Mg Tablet) 650 mg PO Q6H PRN PRN Reason: Pain, Mild (Pain Scale 1-3) Last Admin: 03/04/21 20:28 Dose: 650 mg Documented by: Amiodarone HCl (Amiodarone Hcl 200 Mg Tablet) 200 mg PO DAILY [facility] Last Admin: 03/04/21 08:13 Dose: 200 mg Documented by: Amlodipine Besylate (Amlodipine Besylate 2.5 Mg Tablet) 2.5 mg PO DAILY [facility]; Protocol Last Admin: 03/04/21 08:14 Dose: 2.5 mg Documented by: Bisacodyl (Bisacodyl 10 Mg Supp.Rect) 10 mg [place] DAILY PRN PRN Reason: Constipation Docusate Sodium (Docusate Sodium 100 Mg Capsule) 100 mg PO DAILY [facility] Last Admin: 03/04/21 08:15 Dose: 100 mg Documented by: Heparin Sodium (Porcine) (Heparin Sodium,Porcine 5,000 Unit/Ml Vial) 5,000 unit SUBCUT Q12H [facility] Last Admin: 03/05/21 01:49 Dose: Not Given Documented by: Cefepime HCl 2 gm/ Sodium (Chloride) 50 mls @ 100 mls/hr IV Q12H [facility] Last Infusion: 03/04/21 22:02 Dose: Infused Documented by: Vancomycin HCl 750 mg/ Sodium (Chloride) 265 mls @ 265 mls/hr IV Q24H [facility] Metoprolol Tartrate (Metoprolol Tartrate 25 Mg Tablet) 25 mg PO BID [facility]; Protocol Last Admin: 03/04/21 20:28 Dose: 25 mg Documented by: Ondansetron HCl (Ondansetron Hcl 4 Mg/2 Ml Vial) 4 mg IVPUSH Q8H PRN PRN Reason: Nausea and Vomiting Pharmacy Consult (Consult Rx Perform Med Rec) 1 each MISCELLANE ONCE PRN PRN Reason: Consult order Pharmacy Consult (Consult Rx Vancomycin Dosing) 1 each MISCELLANE DAILY PRN PRN Reason: Consult order Polyethylene Glycol (Polyethylene Glycol 3350 17 Gm Powd.Pack) 17 gm PO DAILY PRN PRN Reason: Constipation Sodium Chloride (0.9 % Sodium Chloride Flush 3 Ml Syringe) 3 ml IVFLUSH QSHIFT [facility] Last Admin: 03/04/21 20:33 Dose: 3 ml Documented by: Home Medications Medication Instructions Recorded Confirmed Last Taken Type metoprolol tartrate 25 mg tablet 25 mg PO BID 10/18/20 03/03/21 12/12/20 History acetaminophen 325 mg tablet 650 mg PO Q4H PRN 03/03/21 03/03/21 Unknown History bisacodyl 10 mg rectal suppository 10 mg [place] DAILY PRN 03/03/21 03/03/21 Unknown History (Dulcolax (bisacodyl)) docusate sodium 100 mg capsule 100 mg PO DAILY 03/03/21 03/03/21 Unknown History furosemide 20 mg tablet 20 mg PO DAILY 03/03/21 03/03/21 Unknown History hydrocodone 5 mg-acetaminophen 325 1 tab PO Q6H PRN 03/03/21 03/03/21 Unknown History mg tablet polyethylene glycol 3350 17 gram 17 g PO DAILY PRN 03/03/21 03/03/21 Unknown History oral powder packet (Miralax) sennosides 8.6 mg tablet (senna) 17.2 mg PO BEDTIME 03/03/21 03/03/21 Unknown History Exam Exam Date and Time: March 05, 202112 Height,Weight and Vital Signs: Height 6 ft Weight 64.6 kg Last Vital Signs Temp 97.6 F 03/05/21 06:27 Pulse 57 03/05/21 06:27 Resp 16 03/05/21 06:27 BP 145/65 H 03/05/21 06:27 Pulse Ox 100 03/05/21 06:27 Pertinent Lab Results Pertinent Lab Results: Laboratory Tests 03/03/21 03/03/21 03/03/21 11:01 11:01 11:01 WBC 18.0 H RBC 3.87 L Hgb 11.5 L Hct 35.7 L MCV 92.2 MCH 29.7 MCHC 32.2 RDW 13.7 Plt Count 216 MPV 10.3 Immature Gran % (Auto) 0.5 H Neut % (Auto) 89.2 H Lymph % (Auto) 4.8 L White % (Auto) 5.3 Eos % (Auto) 0.1 Baso % (Auto) 0.1 Lymph # (Auto) 0.9 L White # (Auto) 1.0 Eos # (Auto) 0.0 Baso # (Auto) 0.0 Abs Immat Gran (auto) 0.09 H Absolute Neuts (auto) 16.1 H Absolute Nucleated RBC 0.000 Nucleated RBC % (auto) 0.0 ESR 32 H PT INR APTT Sodium 137 Potassium 5.0 Chloride 99 Carbon Dioxide 29 Anion Gap 14 BUN 36 H D Creatinine 1.71 H Estim Creat Clear Calc 28.3 Estimated GFR 38 Random Glucose 130 H D Lactic Acid Lactic Acid Fup @ 2Hr Calcium 9.3 D Magnesium 1.8 Total Bilirubin 0.8 Direct Bilirubin 0.3 AST 20 D ALT 20 Alkaline Phosphatase 105 C-Reactive Protein 0.68 H Total Protein 7.1 Albumin 3.8 Urine Color Urine Appearance Urine pH Ur Specific [place] Urine Protein Urine Glucose (UA) Urine Ketones Urine Blood Urine Nitrite Ur Leukocyte Esterase Urine RBC Urine WBC Ur Squamous Epith Cells Urine Bacteria COVID-19 ([facility]) COVID-[facility] 03/03/21 03/03/21 03/03/21 11:01 11:01 11:01 WBC RBC Hgb Hct MCV MCH MCHC RDW Plt Count MPV Immature Gran % (Auto) Neut % (Auto) Lymph % (Auto) White % (Auto) Eos % (Auto) Baso % (Auto) Lymph # (Auto) White # (Auto) Eos # (Auto) Baso # (Auto) Abs Immat Gran (auto) Absolute Neuts (auto) Absolute Nucleated RBC Nucleated RBC % (auto) ESR PT 19.1 H INR 1.7 H APTT 42.3 H Sodium Potassium Chloride Carbon Dioxide Anion Gap BUN Creatinine Estim Creat Clear Calc Estimated GFR Random Glucose Lactic Acid 2.2 H* Lactic Acid Fup @ 2Hr Calcium Magnesium Total Bilirubin Direct Bilirubin AST ALT Alkaline Phosphatase C-Reactive Protein Total Protein Albumin Urine Color Urine Appearance Urine pH Ur Specific [place] Urine Protein Urine Glucose (UA) Urine Ketones Urine Blood Urine Nitrite Ur Leukocyte Esterase Urine RBC Urine WBC Ur Squamous Epith Cells Urine Bacteria COVID-19 ([facility]) Negative COVID-19 [facility] Com See Note 03/03/21 03/03/21 03/04/21 12:00 13:30 06:30 WBC 8.5 RBC 3.69 L Hgb 11.0 L Hct 34.1 L MCV 92.4 MCH 29.8 MCHC 32.3 RDW 13.6 Plt Count 193 MPV 10.7 Immature Gran % (Auto) 0.5 H Neut % (Auto) 74.8 H Lymph % (Auto) 14.2 L White % (Auto) 10.0 Eos % (Auto) 0.4 Baso % (Auto) 0.1 Lymph # (Auto) 1.2 White # (Auto) 0.9 Eos # (Auto) 0.0 Baso # (Auto) 0.0 Abs Immat Gran (auto) 0.04 H Absolute Neuts (auto) 6.4 Absolute Nucleated RBC 0.000 Nucleated RBC % (auto) 0.0 ESR PT INR APTT Sodium Potassium Chloride Carbon Dioxide Anion Gap BUN Creatinine Estim Creat Clear Calc Estimated GFR Random Glucose Lactic Acid Lactic Acid Fup @ 2Hr 1.3 Calcium Magnesium Total Bilirubin Direct Bilirubin AST ALT Alkaline Phosphatase C-Reactive Protein Total Protein Albumin Urine Color STRAW Urine Appearance HAZY Urine pH 6.0 Ur Specific [place] 1.010 Urine Protein NEG Urine Glucose (UA) NEG Urine Ketones NEG Urine Blood 3+ H Urine Nitrite NEG Ur Leukocyte Esterase NEG Urine RBC 50-75 H Urine WBC 0 Ur Squamous Epith Cells NONE Urine Bacteria NONE COVID-19 ([facility]) COVID-19 Clin Com 03/04/21 03/05/21 06:30 05:58 WBC RBC Hgb Hct MCV MCH MCHC RDW Plt Count MPV Immature Gran % (Auto) Neut % (Auto) Lymph % (Auto) White % (Auto) Eos % (Auto) Baso % (Auto) Lymph # (Auto) White # (Auto) Eos # (Auto) Baso # (Auto) Abs Immat Gran (auto) Absolute Neuts (auto) Absolute Nucleated RBC Nucleated RBC % (auto) ESR PT INR APTT Sodium 139 137 Potassium 4.3 4.7 Chloride 101 101 Carbon Dioxide 32 H 30 H Anion Gap 10 L 11 L BUN 28 H 27 H Creatinine 1.43 H 1.33 Estim Creat Clear Calc 33.8 36.4 Estimated GFR 47 51 Random Glucose 105 100 Lactic Acid Lactic Acid Fup @ 2Hr Calcium 9.4 9.2 Magnesium Total Bilirubin Direct Bilirubin AST ALT Alkaline Phosphatase C-Reactive Protein Total Protein Albumin Urine Color Urine Appearance Urine pH Ur Specific [place] Urine Protein Urine Glucose (UA) Urine Ketones Urine Blood Urine Nitrite Ur Leukocyte Esterase Urine RBC Urine WBC Ur Squamous Epith Cells Urine Bacteria COVID-19 ([facility]) COVID-19 Clin Com Airway Mallampati Class: II TM Dist: >3cm Neck ROM: Limited Loose/Missing/Broken Teeth: Yes Heart: irregular Lungs: bl breath sounds Assessment and Plan Final Anesthetic Review Family History of Problems with Anesthesia: No History of Problems with Anesthesia: No NPO: Yes ASA Class: III Patient Risk: Intermediate Procedure Risk: Intermediate Anesthetic Plan Anesthetic Plan: GA Disposition: Standard PACU
[2021-03-05] MEDS: fentaNYL citrate/PF 100 MCG/2 ML VIAL 25 MCG IVPUSH (09:36)
[2021-03-05] MEDS: cefEPime HCl 2 GM in 0.9 % Sodium Chloride 50 ML IV ×2 (10:41→21:27)
[2021-03-05 10:45] LABS: Vancomycin Trough 10.3 mcg/mL (10.0-20.0)
--- NOTE | 2021-03-05 10:54 | W.PM.OPN ---
Operative Note Operative Note Date of Service: 03/05/21 Narrative: Operative note by [facility] Preoperative diagnosis:1. Nonhealing left foot ulcer 2. Osteomyelitis Postoperative diagnosis: Same Procedure: Left transmetatarsal amputation Surgeon:Shashi Mandel M.D. Airline Security Representative: Riky Anesthesia: General Specimens: 1 Drains: None Estimated blood loss: Minimal Indications: Very pleasant 86-year-old gentleman well known to me as had a nonhealing left 2nd toe ulcer any lateral foot ulcer. This has been progressing for sometime. He has undergone arterial testing which has shown to be negative. Now presents for transmetatarsal amputation. This was discussed with his healthcare proxy. The patient at healthcare proxy has signed the informed consent after reviewing risks, complications, benefits, and alternatives previously discussed with the patient. The patient was given the opportunity to ask any additional questions or voice any concerns. All questions were answered to the patient's satisfaction. Procedure in detail: Patient was brought to the operating room prior to which a time-out was called for patient identification and site verification. Curvilinear incision was made over the dorsum of the foot over the transmetatarsal heads. We made a curvilinear incision on the posterior part creating a posterior flap. Incision was carried down through the skin subcu down to the fascial layers were electrocautery was used to go down to the bone. Electrocautery was used also for hemostasis. Once down to the bone we used a power saw to cut across all the metatarsal heads. We then used electrocautery to dissect out the posterior aspect and create the posterior flap. Once this was accomplished it was irrigated out thoroughly. The bony edges were rasped down to a smooth edge. Adequate hemostasis was achieved. Once this was all done deep layer was reapproximated using 2 0 poly Sorb superficial layer with interrupted 3-0 poly Sorb and finally skin was closed with a interrupted 2 0 nylon in a mattress fashion and skin clips. xeroform and a sterile dressing were applied. At the end the case sponge instrument counts were correct. Patient tolerated the procedure well returned to recovery with stable vitals. This note is constructed using voice recognition software. While every effort has been made to ensure accuracy, senior business intelligence analyst errors may have been included. Thank you for allowing me to participate in the care of your patient. Yours sincerely, Shashi Mandel MD, FACS, R.P.V.I.
--- NOTE | 2021-03-05 10:57 | HE.PHANOTE ---
Vancomycin Dosing Addendum Vanco level 10.3 after 2 doses. Adjusted dose to 1000 mg q24h for predicted AUC of 522. Renal fxn improving, continue to monitor. next trough 03/07/21 @1000
[2021-03-05] MEDS: vancomycin HCL 1,000 MG in 0.9 % Sodium Chloride 250 ML 270 MG IV (11:46)
[2021-03-05] MEDS: Heparin Sodium,Porcine 5,000 UNIT/ML VIAL 5000 UNIT SUBCUT (13:34)
--- NOTE | 2021-03-05 13:51 | HO.PM.IMPN ---
Subjective Subjective Date of Service: 03/05/21 Interval History: Being followed for left foot infection underwent transmetatarsal amputation this morning but Dr. Mandle postprocedure feeling better denies pain tolerating diet no other acute issues overnight. Review of Systems General no headache, no dizziness, denies fever, no chills.? CVS no chest pain, no palpitation.? Respiratory no cough, no shortness of breath Gastrointestinal no nausea no vomiting, no abdominal pain no urinary urgency or frequency? all other systems are reviewed and are negative Physical Exam Vital Signs: Vital Signs: Last Vital Signs Temp 97.2 F 03/05/21 11:29 Pulse 59 03/05/21 11:29 Resp 18 03/05/21 11:29 BP 121/58 L 03/05/21 11:29 Pulse Ox 99 03/05/21 11:29 BMI result Body Mass Index 19.3 General awake alert x3, no acute distress.? Neck no JVD. CVS? regular rate rhythm, Respiratory lungs clear to auscultation, no respiratory distress, no wheeze, no rhonchi. Gastrointestinal abdomen soft, nontender, bowel sounds audible, no guarding , no rigidity. Extremities Left lower extremity redness and swelling significantly improved, dressing to left foot in place, no drainage noted. Neuro nonfocal. Psych appropriate affect Objective Data Active Medications Acetaminophen (Acetaminophen 325 Mg Tablet) 650 mg PO Q6H PRN PRN Reason: Pain, Mild (Pain Scale 1-3) Last Admin: 03/04/21 20:28 Dose: 650 mg Documented by: KARIS Amiodarone HCl (Amiodarone Hcl 200 Mg Tablet) 200 mg PO DAILY [facility] Last Admin: 03/05/21 10:30 Dose: Not Given Documented by: JESSICA Non-Admin Reason: Off Unit: Surgery Amlodipine Besylate (Amlodipine Besylate 2.5 Mg Tablet) 2.5 mg PO DAILY [facility]; Protocol Last Admin: 03/05/21 10:30 Dose: Not Given Documented by: JESSICA Non-Admin Reason: Off Unit: Surgery Bisacodyl (Bisacodyl 10 Mg Supp.Rect) 10 mg [place] DAILY PRN PRN Reason: Constipation Docusate Sodium (Docusate Sodium 100 Mg Capsule) 100 mg PO DAILY [facility] Last Admin: 03/05/21 10:30 Dose: Not Given Documented by: JESSICA Non-Admin Reason: Off Unit: Surgery Fentanyl (Fentanyl Citrate/Pf 100 Mcg/2 Ml Vial) 25 mcg IVPUSH Q5M PRN; Protocol PRN Reason: Pain, Moderate (Pain Scale 4-6 Last Admin: 03/05/21 09:36 Dose: 25 mcg Documented by: LUCIANA Heparin Sodium (Porcine) (Heparin Sodium,Porcine 5,000 Unit/Ml Vial) 5,000 unit SUBCUT Q12H [facility] Last Admin: 03/05/21 13:34 Dose: 5,000 unit Documented by: JESSICA Cefepime HCl 2 gm/ Sodium (Chloride) 50 mls @ 100 mls/hr IV Q12H [facility] Last Infusion: 03/05/21 11:15 Dose: 0 mls/hr Documented by: JESSICA Metoprolol Tartrate (Metoprolol Tartrate 25 Mg Tablet) 25 mg PO BID [facility]; Protocol Last Admin: 03/05/21 10:30 Dose: Not Given Documented by: JESSICA Non-Admin Reason: Off Unit: Surgery Ondansetron HCl (Ondansetron Hcl 4 Mg/2 Ml Vial) 4 mg IVPUSH Q8H PRN PRN Reason: Nausea and Vomiting Ondansetron HCl (Ondansetron Hcl 4 Mg/2 Ml Vial) 4 mg IVPUSH ONCE PRN PRN Reason: Nausea and Vomiting Pharmacy Consult (Consult Rx Perform Med Rec) 1 each MISCELLANE ONCE PRN PRN Reason: Consult order Pharmacy Consult (Consult Rx Vancomycin Dosing) 1 each MISCELLANE DAILY PRN PRN Reason: Consult order Polyethylene Glycol (Polyethylene Glycol 3350 17 Gm Powd.Pack) 17 gm PO DAILY PRN PRN Reason: Constipation Sodium Chloride (0.9 % Sodium Chloride Flush 3 Ml Syringe) 3 ml IVFLUSH QSHIFT [facility] Last Admin: 03/05/21 09:33 Dose: Not Given Documented by: JESSICA Non-Admin Reason: Off Unit: Surgery Labs CBC & Chem 7: 03/04/21 06:30 03/05/21 05:58 Labs: Laboratory Results - last 24 hr 03/05/21 03/05/21 05:58 09:51 Anion Gap 11 L Estim Creat Clear Calc 36.4 Estimated GFR 51 Random Glucose 100 Calcium 9.2 Vancomycin Trough 10.3 Microbiology Microbiology Results: Microbiology 03/03/21 11:14 Blood Culture - Preliminary Blood - Venous No growth after 48 hours. 03/03/21 11:01 Blood Culture - Preliminary Blood - Venous No growth after 48 hours. 03/03/21 11:14 Gram Stain - Final Foot Left Routine Culture - Final Pseudomonas aeruginosa Assessment and Plan (1) Osteomyelitis: Status: Acute (2) LAUREN (acute kidney injury): Status: Acute (3) Cellulitis: Status: Acute (4) Severe protein-calorie malnutrition: Status: Acute Assessment and Plan: 85-year-old male with history of heart failure with reduced ejection fraction, atrial fibrillation, CKD, status post multiple recent admission for mechanical fall and hip fracture status post ORIF in October and then again admitted in December for sepsis related to severe aspiration and left lower extremity cellulitis patient is currently recurrent incident of nursing facility was sent to [facility] due to fever/ left foot pain. Left foot nonhealing ulcer/cellulitis and osteomyelitis No fever since hospitalization , WBC normalized X-ray of foot showed osteomyelitis of 5th metatarsal bone,on IV cefepime and vancomycin day 3, vanco trough 10.3, follow BMP while on vanco 2 set of blood culture negative times 48 hours, left foot wound culture grew Pseudomonas Status post left foot transmetatarsal amputation today POD [address] Mandel he recommend to continue antibiotics through Tuesday he will change the dressing on Tuesday. Will resume Eliquis tonight. Called family Yuniel Desir [phone] and informed them about above surgery. Lactic acidosis Resolved, was Likely due to dehydration. Acute kidney injury Likely pre renal , creatinine normalized. History of chronic atrial fibrillation Currently normal sinus rhythm will continue beta-blockers and amiodarone hold Eliquis for possible toe amputation Severe protein calorie malnutrition.? As evidence by BMI 18.8, and loss of subcutaneous fat and muscle mass, cont.supplements History of chronic heart failure with reduced EF no acute exacerbation , Lasix held due to LAUREN, continue to hold Lasix patient appears euvolemic Hypertension continue amlodipine, and metoprolol BP stable dvt ppx - resume Eliquis Code status.? DNR/DNI Quality Stroke Does the patient have a stroke diagnosis?: No VTE Prior VTE?: No VTE Risk Level:: Medical - moderate - high VTE Device Contraindication: Treatment Not Indicated VTE Drug Contraindication: N/A - Med Ordered
--- NOTE | 2021-03-05 13:58 | MHC.CM.PN ---
LEFT TRANSMETATARSAL AMP COMPLETED TODAY, REFERRAL TO [facility] UPDATED VIA [facility] W/POSSIBLE D/C FRI 03/06. CM TO CONT TO FOLLOW D/C NEEDS.
[2021-03-05] MEDS: Acetaminophen 325 MG TABLET 650 MG PO ×2 (14:57→21:33)
[2021-03-05] MEDS: 0.9 % Sodium Chloride Flush 3 ML SYRINGE IVFLUSH ×2 (16:46→20:29)
[2021-03-05] MEDS: oxyCODONE HCl Immed Release 5 MG TABLET PO ×2 (16:46→22:51)
[2021-03-05] MEDS: Morphine Sulfate 2 MG/ML CARTRIDGE IVPUSH (20:29)
[2021-03-05] MEDS: Metoprolol Tartrate 25 MG TABLET PO (20:29)
[2021-03-05] MEDS: Apixaban 5 MG TABLET PO (20:29)
[2021-03-06] VITALS (8 sets, daily range): BP systolic 120–175; BP diastolic 56–78; PULSE 66–88; RESP 14–18; TEMP 36–36.9; O2SAT 96–99
[2021-03-06] MEDS: Morphine Sulfate 2 MG/ML CARTRIDGE IVPUSH ×2 (01:49→13:44)
[2021-03-06 06:11] LABS: MANUAL DIFF FLAG NO
[2021-03-06 06:25] LABS: Basophils Percent Auto 0.2 % (0-2); Eosinophils Absolute Auto 0.1 X10*3/uL (0.0-0.4); Eosinophils Percent Auto 1.2 % (0-4); Hematocrit 31.7 % (42.0-52.0); Hemoglobin 10.1 g/dl (14.0-18.0); Imm Gran Abs Auto 0.04 X10*3/uL (0.00-0.03); Imm Gran Pct Auto 0.4 % (0.0-0.4); Lymphocytes Absolute Auto 0.9 X10*3/uL (1.2-4.9); Lymphocytes Percent Auto 8.9 % (20-40); Mean Corpuscular HGB Conc 31.9 g/dl (31.0-36.0); Mean Corpuscular Hemoglobin 29.5 pg (27.0-33.0); Mean Corpuscular Volume 92.7 fL (80.0-98.0); Mean Platelet Volume 10.9 fL (9.4-12.4); Monocytes Absolute Auto 1.1 X10*3/uL (0.1-1.2); Monocytes Percent Auto 11.3 % (2-11); Neutrophils Absolute Auto 7.6 x10*3/uL (2.0-8.3); Platelet Count 177 X10*3/uL (160-400); Red Blood Count 3.42 X10*6/uL (4.60-5.80); Red Cell Distribution Width 13.8 % (11.0-16.0); White Blood Count 9.8 X10*3/uL (4.8-10.8)
[2021-03-06 06:30] LABS: Anion Gap 15 (12-20); Blood Urea Nitrogen 27 mg/dL (9-16); Calcium 8.8 mg/dL (8.4-10.2); Carbon Dioxide 27 mmol/L (22-29); Chloride 102 mmol/L (96-108); Creatinine Clr Calc Pharmacy 30.6; Estimated Glomerular Filt Rate 42; Glucose Random 122 mg/dL (60-115); Potassium 4.8 mmol/L (3.3-5.1); Sodium 139 mmol/L (135-145)
[2021-03-06] MEDS: Metoprolol Tartrate 25 MG TABLET PO ×2 (07:40→21:27)
[2021-03-06] MEDS: Apixaban 5 MG TABLET PO ×2 (07:49→21:27)
[2021-03-06] MEDS: Docusate Sodium 100 MG CAPSULE PO (07:49)
[2021-03-06] MEDS: amLODIPine Besylate 2.5 MG TABLET PO (07:49)
[2021-03-06] MEDS: oxyCODONE HCl Immed Release 5 MG TABLET PO ×2 (07:49→21:39)
[2021-03-06] MEDS: 0.9 % Sodium Chloride Flush 3 ML SYRINGE IVFLUSH ×2 (07:50→21:27)
[2021-03-06] MEDS: Amiodarone HCL 200 MG TABLET PO (07:50)
[2021-03-06] MEDS: cefEPime HCl 2 GM in 0.9 % Sodium Chloride 50 ML IV ×2 (10:11→21:27)
[2021-03-06] MEDS: 0.9 % Sodium Chloride 1,000 ML 100 ML IVCONT (10:13)
--- NOTE | 2021-03-06 11:00 | P.PNVS_ITS ---
Subjective Subjective Date of Service: 03/06/21 Patient reports: no new complaints and feels better Interval history: Very pleasant 86-year-old gentleman who is postop day 1 status post left transmetatarsal amputation. He appears to be doing extremely well. He did have some pain yesterday and has seemed to resolve today. No interval issues. Physical Exam Vital Signs: Vital Signs: Last Vital Signs Temp 97.9 F 03/06/21 07:39 Pulse 71 03/06/21 07:39 Resp 18 03/06/21 07:39 BP 124/58 L 03/06/21 07:39 Pulse Ox 99 03/06/21 07:39 BMI result Body Mass Index 19.3 Const: General: cooperative, healthy appearing and no acute distress Orientation/consciousness: oriented to person, oriented to place and oriented to time HENMT: Head: Yes normal to inspection Neck: Carotids: no bruits Chest: Chest palpation & inspection: normal inspection of the chest Resp: Effort & Inspection: normal respiratory effort and able to speak in complete sentences Auscultation: clear to auscultation bilaterally Cardio: Rate: regular rate Heart sounds: S1 normal heart sound present and S2 normal heart sound present GI: Inspection: Yes normal to inspection Skin: Other: Dressing clean dry intact General skin exam: no rashes or lesions noted Wounds: amputation site (Dressing intact) Neuro: General: oriented to person, oriented to place, oriented to time and CN's II-XI intact bilaterally Extrem: General: Yes normal to inspection, Yes full ROM and Yes no clubbing, cyanosis or edema Psych: Appearance: grossly normal and well kempt Speech and movement: Normal speech and movement present Affect: normal affect Progress Note: A&P Assessment and plan (1) PAD (peripheral artery disease): Status: Acute Assessment and Plan: Patient is status post left transmetatarsal amputation. He appears to be doing relatively well. Would continue with antibiotics throughout the weekend. Will plan for dressing change on Tuesday. thank you for allowing us to assist in his care. Fall Risk Details Current Medications: Current Medications Acetaminophen (Acetaminophen 325 Mg Tablet) 650 mg PO Q6H PRN PRN Reason: Pain, Mild (Pain Scale 1-3) Last Admin: 03/05/21 21:33 Dose: 650 mg Documented by: Amiodarone HCl (Amiodarone Hcl 200 Mg Tablet) 200 mg PO DAILY [facility] Last Admin: 03/06/21 07:50 Dose: 200 mg Documented by: Amlodipine Besylate (Amlodipine Besylate 2.5 Mg Tablet) 2.5 mg PO DAILY [facility]; Protocol Last Admin: 03/06/21 07:49 Dose: 2.5 mg Documented by: Apixaban (Apixaban 5 Mg Tablet) 5 mg PO BID [facility] Last Admin: 03/06/21 07:49 Dose: 5 mg Documented by: Bisacodyl (Bisacodyl 10 Mg Supp.Rect) 10 mg [place] DAILY PRN PRN Reason: Constipation Docusate Sodium (Docusate Sodium 100 Mg Capsule) 100 mg PO DAILY [facility] Last Admin: 03/06/21 07:49 Dose: 100 mg Documented by: Fentanyl (Fentanyl Citrate/Pf 100 Mcg/2 Ml Vial) 25 mcg IVPUSH Q5M PRN; Protocol PRN Reason: Pain, Moderate (Pain Scale 4-6 Last Admin: 03/05/21 09:36 Dose: 25 mcg Documented by: Cefepime HCl 2 gm/ Sodium (Chloride) 50 mls @ 100 mls/hr IV Q12H [facility] Last Admin: 03/06/21 10:11 Dose: 100 mls/hr Documented by: Sodium Chloride (Ns) 1,000 mls @ 100 mls/hr IVCONT .Q10H [facility] Stop: 03/06/21 19:44 Last Admin: 03/06/21 10:13 Dose: 100 mls/hr Documented by: Metoprolol Tartrate (Metoprolol Tartrate 25 Mg Tablet) 25 mg PO BID [facility]; Protocol Last Admin: 03/06/21 07:40 Dose: 25 mg Documented by: Morphine Sulfate (Morphine Sulfate 2 Mg/Ml Cartridge) 2 mg IVPUSH Q4H PRN; Protocol PRN Reason: Pain, Severe (Pain Scale 7-10) Last Admin: 03/06/21 01:49 Dose: 2 mg Documented by: Ondansetron HCl (Ondansetron Hcl 4 Mg/2 Ml Vial) 4 mg IVPUSH Q8H PRN PRN Reason: Nausea and Vomiting Ondansetron HCl (Ondansetron Hcl 4 Mg/2 Ml Vial) 4 mg IVPUSH ONCE PRN PRN Reason: Nausea and Vomiting Oxycodone HCl (Oxycodone Hcl Immed Release 5 Mg Tablet) 5 mg PO Q6H PRN PRN Reason: Pain, Moderate (Pain Scale 4-6 Last Admin: 03/06/21 07:49 Dose: 5 mg Documented by: Pharmacy Consult (Consult Rx Perform Med Rec) 1 each MISCELLANE ONCE PRN PRN Reason: Consult order Pharmacy Consult (Consult Rx Vancomycin Dosing) 1 each MISCELLANE DAILY PRN PRN Reason: Consult order Polyethylene Glycol (Polyethylene Glycol 3350 17 Gm Powd.Pack) 17 gm PO DAILY PRN PRN Reason: Constipation Sodium Chloride (0.9 % Sodium Chloride Flush 3 Ml Sy[facility]) [facility] Last Admin: 03/06/21 07:50 Dose: 3 ml Documented by: Time Spent With Patient Time: Total time spent is greater than 50% in coordination of care (as docu mented) at patient's floor/unit and/or counseling patient: Time with patient: 15 - 24 minutes Procedures Date of Service Date of Service: 03/06/21 Quality Stroke Does the patient have a stroke diagnosis?: No VTE Prior VTE?: No VTE Risk Level:: Medical - moderate - high VTE Device Contraindication: Treatment Not Indicated VTE Drug Contraindication: N/A - Med Ordered
--- NOTE | 2021-03-06 12:15 | MHC.CM.PN ---
EMR REVIEWED, PER MULTIDISCIPLINARY ROUNDS PT WILL REMAIN INPT UNTIL TUESDAY PER DR GOTTI, OC UPDATED VIA [employer].
[2021-03-06 14:03] LABS: Estimated Average Glucose 111 mg/dL; Hemoglobin A1c % 5.5 %
--- NOTE | 2021-03-06 14:09 | HO.POSTANES ---
Post Anesthesia Evaluation Post Anesthesia Evaluation Vital Signs: Vital Signs Temp Pulse Resp BP Pulse Ox 03/06/21 11:54 98.5 F 72 18 164/72 H 99 03/06/21 08:27 98 03/06/21 07:39 97.9 F 71 18 124/58 L 99 03/06/21 03:45 96.9 F 72 18 159/72 H 98 Anesthesia: General Mental Status: Awake Pain Control: Satisfactory Nausea/Vomiting: None Hydration: Adequate Anesthesia-Related Issues: No Anes. Related Issues
--- NOTE | 2021-03-06 14:14 | MHC.CLN ---
F/U INTAKE APPEARS VERY GOOD MOST MEALS. CONTINUE CARDIAC DIET WITH ENSURE TID (1050 KCAL, 39 G PROTEIN).
--- NOTE | 2021-03-06 15:40 | P.PNIM_ITS ---
Subjective Subjective Date of Service: 03/06/21 Interval History: L foot pain improved, POD#1 no fever Review of Systems Review of Systems: Yes all other systems are reviewed and are negative Physical Exam Vital Signs: Vital Signs: Last Vital Signs Temp 98.5 F 03/06/21 11:54 Pulse 72 03/06/21 11:54 Resp 18 03/06/21 11:54 BP 164/72 H 03/06/21 11:54 Pulse Ox 99 03/06/21 11:54 BMI result Body Mass Index 19.3 Gen: in no acute distress HEENT: sclera anicteric, moist mucus membranes Neck: supple Lungs: clear to auscultation bilaterally Heart: regular rate and rhythm, no murmurs Abd: soft, non-tender, non-distended Ext: L foot stump in dressing Skin: warm/well-perfused Neuro: alert and oriented x3, no focal findings Psych: appropriate affect Objective Data Active Medications Acetaminophen (Acetaminophen 325 Mg Tablet) 650 mg PO Q6H PRN PRN Reason: Pain, Mild (Pain Scale 1-3) Last Admin: 03/05/21 21:33 Dose: 650 mg Documented by: KARIS Amiodarone HCl (Amiodarone Hcl 200 Mg Tablet) 200 mg PO DAILY [facility] Last Admin: 03/06/21 07:50 Dose: 200 mg Documented by: SALMA Amlodipine Besylate (Amlodipine Besylate 2.5 Mg Tablet) 2.5 mg PO DAILY [facility]; Protocol Last Admin: 03/06/21 07:49 Dose: 2.5 mg Documented by: SALMA Apixaban (Apixaban 5 Mg Tablet) 5 mg PO BID [facility] Last Admin: 03/06/21 07:49 Dose: 5 mg Documented by: SALMA Bisacodyl (Bisacodyl 10 Mg Supp.Rect) 10 mg [place] DAILY PRN PRN Reason: Constipation Docusate Sodium (Docusate Sodium 100 Mg Capsule) 100 mg PO DAILY [facility] Last Admin: 03/06/21 07:49 Dose: 100 mg Documented by: SALMA Fentanyl (Fentanyl Citrate/Pf 100 Mcg/2 Ml Vial) 25 mcg IVPUSH Q5M PRN; Protocol PRN Reason: Pain, Moderate (Pain Scale 4-6 Last Admin: 03/05/21 09:36 Dose: 25 mcg Documented by: LUCIANA Cefepime HCl 2 gm/ Sodium (Chloride) 50 mls @ 100 mls/hr IV Q12H [facility] Last Infusion: 03/06/21 11:05 Dose: 100 mls/hr Documented by: SALMA Sodium Chloride (Ns) 1,000 mls @ 100 mls/hr IVCONT .Q10H [facility] Stop: 03/06/21 19:44 Last Admin: 03/06/21 10:13 Dose: 100 mls/hr Documented by: SALMA Metoprolol Tartrate (Metoprolol Tartrate 25 Mg Tablet) 25 mg PO BID [facility]; Protocol Last Admin: 03/06/21 07:40 Dose: 25 mg Documented by: SALMA Morphine Sulfate (Morphine Sulfate 2 Mg/Ml Cartridge) 2 mg IVPUSH Q4H PRN; Protocol PRN Reason: Pain, Severe (Pain Scale 7-10) Last Admin: 03/06/21 13:44 Dose: 2 mg Documented by: SALMA Ondansetron HCl (Ondansetron Hcl 4 Mg/2 Ml Vial) 4 mg IVPUSH Q8H PRN PRN Reason: Nausea and Vomiting Ondansetron HCl (Ondansetron Hcl 4 Mg/2 Ml Vial) 4 mg IVPUSH ONCE PRN PRN Reason: Nausea and Vomiting Oxycodone HCl (Oxycodone Hcl Immed Release 5 Mg Tablet) 5 mg PO Q6H PRN PRN Reason: Pain, Moderate (Pain Scale 4-6 Last Admin: 03/06/21 07:49 Dose: 5 mg Documented by: SALMA Pharmacy Consult (Consult Rx Perform Med Rec) 1 each MISCELLANE ONCE PRN PRN Reason: Consult order Pharmacy Consult (Consult Rx Vancomycin Dosing) 1 each MISCELLANE DAILY PRN PRN Reason: Consult order Polyethylene Glycol (Polyethylene Glycol 3350 17 Gm Powd.Pack) 17 gm PO DAILY PRN PRN Reason: Constipation Sodium Chloride (0.9 % Sodium Chloride Flush 3 Ml Syringe) 3 ml IVFLUSH QSHIFT [facility] Last Admin: 03/06/21 15:09 Dose: Not Given Documented by: BRENDEN Non-Admin Reason: IV Running Labs CBC & Chem 7: 03/06/21 05:47 03/06/21 05:47 Labs: Laboratory Results - last 24 hr 03/06/21 03/06/21 03/06/21 05:47 05:47 05:47 MCV 92.7 MCH 29.5 MCHC 31.9 RDW 13.8 Plt Count 177 MPV 10.9 Immature Gran % (Auto) 0.4 Neut % (Auto) 78.0 H Lymph % (Auto) 8.9 L Stearns % (Auto) 11.3 H Eos % (Auto) 1.2 Baso % (Auto) 0.2 Lymph # (Auto) 0.9 L Stearns # (Auto) 1.1 Eos # (Auto) 0.1 Baso # (Auto) 0.0 Abs Immat Gran (auto) 0.04 H Absolute Neuts (auto) 7.6 Absolute Nucleated RBC 0.000 Nucleated RBC % (auto) 0.0 Anion Gap 15 Estim Creat Clear Calc 30.6 Estimated GFR 42 Random Glucose 122 H Estimat Average Glucose 111 Hemoglobin A1c % 5.5 Calcium 8.8 Microbiology Microbiology Results: Microbiology 03/03/21 11:14 Blood Culture - Preliminary Blood - Venous No growth after 48 hours. 03/03/21 11:01 Blood Culture - Preliminary Blood - Venous No growth after 48 hours. Assessment and Plan (1) Osteomyelitis: Status: Acute (2) LAUREN (acute kidney injury): Status: Acute (3) Cellulitis: Status: Acute (4) Severe protein-calorie malnutrition: Status: Acute Assessment and Plan: hospital d#4 85yo M SNF resident with HFrEF, AF, CKD; multiple admissions for mechanical fall and hip fracture s/p ORIF in October and then for sepsis related to aspiration + LLE cellulitis in December admitted for osteomyelitis at site of nonhealing ulcer of L foot # L foot nonhealing ulcer/osteomyelitis/cellulitis - WBC normalized, no fever since hospitalization - X-ray showed osteomyelitis of 5th metatarsal bone - on IV cefepime + vancomycin d#4 - BCx negative, wound Cx grew Pseudomonas - s/p L TMTA, POD #1 - Dr Mandel recommends to continue IV ABX through Tuesday, at which point he will change the dressing - will discuss with ID about definitive length/route/choice of ABX # lactic acidosis - resolved, was likely due to dehydration # LAUREN - ?prerenal- will give IV fluids and recheck in AM # chronic AF - currently NSR; continue metoprolol + amiodarone, resumed apixaban # chronic HFrEF - furosemide held for LAUREN. continue metoprolol # HTN - continue amlodipine + metoprolol # severe protein-calorie malnutrition - continue dietary supplementation Severe protein calorie malnutrition.? As evidence by BMI 18.8, and loss of subcutaneous fat and muscle mass, cont.supplements # VTE ppx - apixaban Quality Stroke Does the patient have a stroke diagnosis?: No VTE Prior VTE?: No VTE Risk Level:: Medical - moderate - high VTE Device Contraindication: Treatment Not Indicated VTE Drug Contraindication: N/A - Med Ordered
[2021-03-07] VITALS (8 sets, daily range): BP systolic 122–160; BP diastolic 58–75; PULSE 60–78; RESP 16–18; TEMP 36.3–36.8; O2SAT 96–100
[2021-03-07 06:36] LABS: Hematocrit 30.8 % (42.0-52.0); Hemoglobin 9.8 g/dl (14.0-18.0); Mean Corpuscular HGB Conc 31.8 g/dl (31.0-36.0); Mean Corpuscular Hemoglobin 29.2 pg (27.0-33.0); Mean Corpuscular Volume 91.7 fL (80.0-98.0); Mean Platelet Volume 10.2 fL (9.4-12.4); Platelet Count 179 X10*3/uL (160-400); Red Blood Count 3.36 X10*6/uL (4.60-5.80); Red Cell Distribution Width 13.8 % (11.0-16.0); White Blood Count 8.7 X10*3/uL (4.8-10.8)
[2021-03-07 07:03] LABS: Anion Gap 10 (12-20); Blood Urea Nitrogen 27 mg/dL (9-16); Calcium 8.7 mg/dL (8.4-10.2); Carbon Dioxide 29 mmol/L (22-29); Chloride 103 mmol/L (96-108); Creatinine Clr Calc Pharmacy 34.6; Estimated Glomerular Filt Rate 48; Glucose Random 118 mg/dL (60-115); Potassium 4.4 mmol/L (3.3-5.1); Sodium 138 mmol/L (135-145)
[2021-03-07] MEDS: oxyCODONE HCl Immed Release 5 MG TABLET PO ×2 (08:41→15:50)
[2021-03-07] MEDS: Metoprolol Tartrate 25 MG TABLET PO ×2 (08:42→21:12)
[2021-03-07] MEDS: Amiodarone HCL 200 MG TABLET PO (08:42)
[2021-03-07] MEDS: amLODIPine Besylate 2.5 MG TABLET PO (08:42)
[2021-03-07] MEDS: Apixaban 5 MG TABLET PO ×2 (08:42→21:11)
[2021-03-07] MEDS: Docusate Sodium 100 MG CAPSULE PO (08:43)
[2021-03-07] MEDS: 0.9 % Sodium Chloride Flush 3 ML SYRINGE IVFLUSH ×2 (08:43→15:42)
[2021-03-07] MEDS: cefEPime HCl 2 GM in 0.9 % Sodium Chloride 50 ML IV ×2 (10:02→21:12)
--- NOTE | 2021-03-07 11:04 | P.PNIM_ITS ---
Subjective Subjective Date of Service: 03/07/21 Interval History: L foot pain improved No fever Review of Systems Review of Systems: Yes all other systems are reviewed and are negative Physical Exam Vital Signs: Vital Signs: Last Vital Signs Temp 98.3 F 03/07/21 07:34 Pulse 62 03/07/21 07:34 Resp 16 03/07/21 07:34 BP 139/63 03/07/21 07:34 Pulse Ox 98 03/07/21 07:51 BMI result Body Mass Index 19.3 Gen: in no acute distress HEENT: sclera anicteric, moist mucus membranes Neck: supple Lungs: clear to auscultation bilaterally Heart: regular rate and rhythm, no murmurs Abd: soft, non-tender, non-distended Ext: L foot stump in dressing Skin: warm/well-perfused Neuro: alert and oriented x3, no focal findings Psych: appropriate affect Objective Data Active Medications Acetaminophen (Acetaminophen 325 Mg Tablet) 650 mg PO Q6H PRN PRN Reason: Pain, Mild (Pain Scale 1-3) Last Admin: 03/05/21 21:33 Dose: 650 mg Documented by: KARIS Amiodarone HCl (Amiodarone Hcl 200 Mg Tablet) 200 mg PO DAILY [facility] Last Admin: 03/07/21 08:42 Dose: 200 mg Documented by: SALMA Amlodipine Besylate (Amlodipine Besylate 2.5 Mg Tablet) 2.5 mg PO DAILY [facility]; Protocol Last Admin: 03/07/21 08:42 Dose: 2.5 mg Documented by: SALMA Apixaban (Apixaban 5 Mg Tablet) 5 mg PO BID [facility] Last Admin: 03/07/21 08:42 Dose: 5 mg Documented by: SALMA Bisacodyl (Bisacodyl 10 Mg Supp.Rect) 10 mg AL DAILY PRN PRN Reason: Constipation Docusate Sodium (Docusate Sodium 100 Mg Capsule) 100 mg PO DAILY [facility] Last Admin: 03/07/21 08:43 Dose: 100 mg Documented by: SALMA Fentanyl (Fentanyl Citrate/Pf 100 Mcg/2 Ml Vial) 25 mcg IVPUSH Q5M PRN; Protocol PRN Reason: Pain, Moderate (Pain Scale 4-6 Last Admin: 03/05/21 09:36 Dose: 25 mcg Documented by: LUCIANA Cefepime HCl 2 gm/ Sodium (Chloride) 50 mls @ 100 mls/hr IV Q12H [facility] Last Infusion: 03/07/21 10:37 Dose: 100 mls/hr Documented by: SALMA Metoprolol Tartrate (Metoprolol Tartrate 25 Mg Tablet) 25 mg PO BID [facility]; Protocol Last Admin: 03/07/21 08:42 Dose: 25 mg Documented by: SALMA Morphine Sulfate (Morphine Sulfate 2 Mg/Ml Cartridge) 2 mg IVPUSH Q4H PRN; Protocol PRN Reason: Pain, Severe (Pain Scale 7-10) Last Admin: 03/06/21 13:44 Dose: 2 mg Documented by: SALMA Ondansetron HCl (Ondansetron Hcl 4 Mg/2 Ml Vial) 4 mg IVPUSH Q8H PRN PRN Reason: Nausea and Vomiting Ondansetron HCl (Ondansetron Hcl 4 Mg/2 Ml Vial) 4 mg IVPUSH ONCE PRN PRN Reason: Nausea and Vomiting Oxycodone HCl (Oxycodone Hcl Immed Release 5 Mg Tablet) 5 mg PO Q6H PRN PRN Reason: Pain, Moderate (Pain Scale 4-6 Last Admin: 03/07/21 08:41 Dose: 5 mg Documented by: SALMA Pharmacy Consult (Consult Rx Perform Med Rec) 1 each MISCELLANE ONCE PRN PRN Reason: Consult order Pharmacy Consult (Consult Rx Vancomycin Dosing) 1 each MISCELLANE DAILY PRN PRN Reason: Consult order Polyethylene Glycol (Polyethylene Glycol 3350 17 Gm Powd.Pack) 17 gm PO DAILY PRN PRN Reason: Constipation Sodium Chloride (0.9 % Sodium Chloride Flush 3 Ml Syringe) 3 ml IVFLUSH QSHIFT [facility] Last Admin: 03/07/21 08:43 Dose: 3 ml Documented by: SALMA Labs CBC & Chem 7: 03/07/21 06:27 03/07/21 06:27 Labs: Laboratory Results - last 24 hr 03/06/21 03/07/21 03/07/21 05:47 06:27 06:27 MCV 91.7 MCH 29.2 MCHC 31.8 RDW 13.8 Plt Count 179 MPV 10.2 Absolute Nucleated RBC 0.000 Nucleated RBC % (auto) 0.0 Anion Gap 10 L Estim Creat Clear Calc 34.6 Estimated GFR 48 Random Glucose 118 H Estimat Average Glucose 111 Hemoglobin A1c % 5.5 Calcium 8.7 Assessment and Plan (1) Osteomyelitis: Status: Acute (2) LAUREN (acute kidney injury): Status: Acute (3) Cellulitis: Status: Acute (4) Severe protein-calorie malnutrition: Status: Acute Assessment and Plan: hospital d#5 85yo M SNF resident with HFrEF, AF, CKD; multiple admissions for mechanical fall and hip fracture s/p ORIF in October and then for sepsis related to aspiration + LLE cellulitis in December admitted for osteomyelitis at site of nonhealing ulcer of L foot # L foot nonhealing ulcer/osteomyelitis/cellulitis - X-ray showed osteomyelitis of 5th metatarsal bone - BCx negative, wound Cx grew Pseudomonas - on IV cefepime d#5; will discuss with ID about definitive length/route/choice of ABX - s/p L TMTA, POD #1; Dr Mandel recommends to continue IV ABX through Tuesday, at which point he will change the dressing - WBC normalized, no fever since hospitalization # lactic acidosis - resolved, was likely due to dehydration # LAUREN - ?prerenal- improved p IV fluid hydration # chronic AF - currently NSR; continue metoprolol + amiodarone, resumed apixaban # chronic HFrEF - furosemide held for LAUREN. continue metoprolol # HTN - continue amlodipine + metoprolol # severe protein-calorie malnutrition - continue dietary supplementation # VTE ppx - apixaban # dispo - eventual return to [facility] for LTC Quality Stroke Does the patient have a stroke diagnosis?: No VTE Prior VTE?: No VTE Risk Level:: Medical - moderate - high VTE Device Contraindication: Treatment Not Indicated VTE Drug Contraindication: N/A - Med Ordered
[2021-03-07 11:21] LABS: Vancomycin Trough 7.7 mcg/mL (10.0-20.0)
[2021-03-08] VITALS (8 sets, daily range): BP systolic 106–150; BP diastolic 51–71; PULSE 57–67; RESP 15–17; TEMP 36.2–37; O2SAT 95–99
[2021-03-08] MEDS: 0.9 % Sodium Chloride Flush 3 ML SYRINGE IVFLUSH ×4 (01:05→23:48)
[2021-03-08] MEDS: Metoprolol Tartrate 25 MG TABLET PO ×2 (10:37→20:44)
[2021-03-08] MEDS: oxyCODONE HCl Immed Release 5 MG TABLET PO ×2 (10:38→23:55)
[2021-03-08] MEDS: cefEPime HCl 2 GM in 0.9 % Sodium Chloride 50 ML IV ×2 (10:38→20:46)
[2021-03-08] MEDS: Apixaban 5 MG TABLET PO ×2 (10:38→20:44)
[2021-03-08] MEDS: Amiodarone HCL 200 MG TABLET PO (10:38)
[2021-03-08] MEDS: Docusate Sodium 100 MG CAPSULE PO (10:38)
[2021-03-08] MEDS: amLODIPine Besylate 2.5 MG TABLET PO (10:38)
--- NOTE | 2021-03-08 12:57 | HO.PM.IMPN ---
Subjective Subjective Date of Service: 03/08/21 Interval History: L foot pain much better No fever/chills No nausea/vomiting Physical Exam Vital Signs: Vital Signs: Last Vital Signs Temp 97.1 F 03/08/21 11:30 Pulse 59 03/08/21 11:30 Resp 15 03/08/21 11:30 BP 126/58 L 03/08/21 11:30 Pulse Ox 99 03/08/21 11:30 BMI result Body Mass Index 19.3 Gen: in no acute distress HEENT: sclera anicteric, moist mucus membranes Neck: supple Lungs: clear to auscultation bilaterally Heart: regular rate and rhythm, no murmurs Abd: soft, non-tender, non-distended Ext: L foot stump in dressing Skin: warm/well-perfused Neuro: alert and oriented x3, no focal findings Psych: appropriate affect Objective Data Active Medications Acetaminophen (Acetaminophen 325 Mg Tablet) 650 mg PO Q6H PRN PRN Reason: Pain, Mild (Pain Scale 1-3) Last Admin: 03/05/21 21:33 Dose: 650 mg Documented by: KARIS Amiodarone HCl (Amiodarone Hcl 200 Mg Tablet) 200 mg PO DAILY [facility] Last Admin: 03/08/21 10:38 Dose: 200 mg Documented by: MANUELA Amlodipine Besylate (Amlodipine Besylate 2.5 Mg Tablet) 2.5 mg PO DAILY [facility]; Protocol Last Admin: 03/08/21 10:38 Dose: 2.5 mg Documented by: MANUELA Apixaban (Apixaban 5 Mg Tablet) 5 mg PO BID [facility] Last Admin: 03/08/21 10:38 Dose: 5 mg Documented by: MANUELA Bisacodyl (Bisacodyl 10 Mg Supp.Rect) 10 mg [place] DAILY PRN PRN Reason: Constipation Docusate Sodium (Docusate Sodium 100 Mg Capsule) 100 mg PO DAILY [facility] Last Admin: 03/08/21 10:38 Dose: 100 mg Documented by: MANUELA Fentanyl (Fentanyl Citrate/Pf 100 Mcg/2 Ml Vial) 25 mcg IVPUSH Q5M PRN; Protocol PRN Reason: Pain, Moderate (Pain Scale 4-6 Last Admin: 03/05/21 09:36 Dose: 25 mcg Documented by: HO.GAVRILM Cefepime HCl 2 gm/ Sodium (Chloride) 50 mls @ 100 mls/hr IV Q12H [facility] Last Infusion: 03/08/21 11:12 Dose: 0 mls/hr Documented by: MANUELA Metoprolol Tartrate (Metoprolol Tartrate 25 Mg Tablet) 25 mg PO BID [facility]; Protocol Last Admin: 03/08/21 10:37 Dose: 25 mg Documented by: MANUELA Morphine Sulfate (Morphine Sulfate 2 Mg/Ml Cartridge) 2 mg IVPUSH Q4H PRN; Protocol PRN Reason: Pain, Severe (Pain Scale 7-10) Last Admin: 03/06/21 13:44 Dose: 2 mg Documented by: SALMA Ondansetron HCl (Ondansetron Hcl 4 Mg/2 Ml Vial) 4 mg IVPUSH Q8H PRN PRN Reason: Nausea and Vomiting Ondansetron HCl (Ondansetron Hcl 4 Mg/2 Ml Vial) 4 mg IVPUSH ONCE PRN PRN Reason: Nausea and Vomiting Oxycodone HCl (Oxycodone Hcl Immed Release 5 Mg Tablet) 5 mg PO Q6H PRN PRN Reason: Pain, Moderate (Pain Scale 4-6 Last Admin: 03/08/21 10:38 Dose: 5 mg Documented by: MANUELA Pharmacy Consult (Consult Rx Perform Med Rec) 1 each MISCELLANE ONCE PRN PRN Reason: Consult order Pharmacy Consult (Consult Rx Vancomycin Dosing) 1 each MISCELLANE DAILY PRN PRN Reason: Consult order Polyethylene Glycol (Polyethylene Glycol 3350 17 Gm Powd.Pack) 17 gm PO DAILY PRN PRN Reason: Constipation Sodium Chloride (0.9 % Sodium Chloride Flush 3 Ml Syringe) 3 ml IVFLUSH QSHIFT [facility] Last Admin: 03/08/21 10:38 Dose: 3 ml Documented by: MANUELA Labs CBC & Chem 7: 03/07/21 06:27 03/07/21 06:27 Assessment and Plan (1) Osteomyelitis: Status: Acute (2) LAUREN (acute kidney injury): Status: Acute (3) Cellulitis: Status: Acute (4) Severe protein-calorie malnutrition: Status: Acute Assessment and Plan: hospital d#6 85yo M SNF resident with HFrEF, AF, CKD; multiple admissions for mechanical fall and hip fracture s/p ORIF in October and then for sepsis related to aspiration + LLE cellulitis in December admitted for osteomyelitis at site of nonhealing ulcer of L foot # L foot nonhealing ulcer/osteomyelitis/cellulitis - X-ray showed osteomyelitis of 5th metatarsal bone - BCx negative, wound Cx grew Pseudomonas - on IV cefepime d#6; will discuss with ID tomorrow about definitive length/route/choice of ABX - s/p L TMTA, POD #3; Dr Mandel recommends to continue IV ABX through tomorrow, at which point he will change the dressing - WBC normalized, no fever since hospitalization # lactic acidosis - resolved, was likely due to dehydration # LAUREN - ?prerenal- improved p IV fluid hydration; recheck labs tomorrow # chronic AF - currently NSR; continue metoprolol + amiodarone, resumed apixaban # chronic HFrEF - furosemide held for LAUREN. continue metoprolol # HTN - continue amlodipine + metoprolol # severe protein-calorie malnutrition - continue dietary supplementation # VTE ppx - apixaban # dispo - eventual return to [facility] for LTC Quality Stroke Does the patient have a stroke diagnosis?: No VTE Prior VTE?: No VTE Risk Level:: Medical - moderate - high VTE Device Contraindication: Treatment Not Indicated VTE Drug Contraindication: N/A - Med Ordered
[2021-03-09] VITALS: BP 129/60; PULSE 60; RESP 16; TEMP 36.4; O2SAT 98
[2021-03-09 05:00] LABS: Hematocrit 32.9 % (42.0-52.0); Hemoglobin 10.3 g/dl (14.0-18.0); Mean Corpuscular HGB Conc 31.3 g/dl (31.0-36.0); Mean Corpuscular Hemoglobin 29.5 pg (27.0-33.0); Mean Corpuscular Volume 94.3 fL (80.0-98.0); Mean Platelet Volume 10.6 fL (9.4-12.4); Platelet Count 191 X10*3/uL (160-400); Red Blood Count 3.49 X10*6/uL (4.60-5.80); Red Cell Distribution Width 13.9 % (11.0-16.0); White Blood Count 8.5 X10*3/uL (4.8-10.8)
[2021-03-09 05:18] LABS: Anion Gap 13 (12-20); Blood Urea Nitrogen 36 mg/dL (9-16); C Reactive Protein 8.23 mg/dL (< or = 0.50); Calcium 8.7 mg/dL (8.4-10.2); Carbon Dioxide 26 mmol/L (22-29); Chloride 104 mmol/L (96-108); Creatinine Clr Calc Pharmacy 34.8; Estimated Glomerular Filt Rate 48; Glucose Random 108 mg/dL (60-115); Potassium 4.8 mmol/L (3.3-5.1); Sodium 138 mmol/L (135-145)
[2021-03-09 05:35] LABS: Erythrocyte Sedimentation Rate 53 MM/HR (0-15)
[2021-03-09 07:23] VITALS: BP 144/64; PULSE 59; RESP 18; TEMP 36.4; O2SAT 98
[2021-03-09 08:00] VITALS: O2SAT 100
[2021-03-09] MEDS: oxyCODONE HCl Immed Release 5 MG TABLET PO ×2 (08:14→14:12)
[2021-03-09] MEDS: Apixaban 5 MG TABLET PO (08:15)
[2021-03-09] MEDS: Amiodarone HCL 200 MG TABLET PO (08:15)
[2021-03-09] MEDS: Metoprolol Tartrate 25 MG TABLET PO (08:15)
[2021-03-09] MEDS: 0.9 % Sodium Chloride Flush 3 ML SYRINGE IVFLUSH (08:15)
[2021-03-09] MEDS: amLODIPine Besylate 2.5 MG TABLET PO (08:15)
[2021-03-09] MEDS: Docusate Sodium 100 MG CAPSULE PO (08:15)
--- NOTE | 2021-03-09 09:49 | P.PNVS_ITS ---
Subjective Subjective Date of Service: 03/09/21 Patient reports: no new complaints and feels better Interval history: Very pleasant 86-year-old gentleman seen in post up for transmetatarsal amputation. He had no events over the past weekend. He feels to be doing extremely well. Pain is well controlled. He is anxious to find out the next step in his care. Tolerating a diet. Physical Exam Vital Signs: Vital Signs: Last Vital Signs Temp 97.6 F 03/09/21 07:23 Pulse 59 03/09/21 07:23 Resp 18 03/09/21 07:23 BP 144/64 H 03/09/21 07:23 Pulse Ox 100 03/09/21 08:00 BMI result Body Mass Index 19.3 Const: General: cooperative, healthy appearing and no acute distress Orientation/consciousness: oriented to person, oriented to place and oriented to time HENMT: Head: Yes normal to inspection Neck: Carotids: no bruits Chest: Chest palpation & inspection: normal inspection of the chest Resp: Effort & Inspection: normal respiratory effort and able to speak in complete sentences Auscultation: clear to auscultation bilaterally Cardio: Rate: regular rate Heart sounds: S1 normal heart sound present and S2 normal heart sound present GI: Inspection: Yes normal to inspection Skin: General skin exam: no rashes or lesions noted Wounds: amputation site (Left trans met dressing changed healing extremely well) Neuro: General: oriented to person, oriented to place, oriented to time and CN's II-XI intact bilaterally Extrem: General: Yes normal to inspection, Yes full ROM and Yes no clubbing, cyanosis or edema Psych: Appearance: grossly normal and well kempt Speech and movement: Normal speech and movement present Affect: normal affect Progress Note: A&P Assessment and plan (1) PAD (peripheral artery disease): Status: Acute Assessment and Plan: Patient is status post transmetatarsal amputation. Amp site is healing extremely well. There is no evidence of any erythema or infection. In addition the toe and the lateral ulcer which had osteomyelitis has been removed. I do not believe there is an indication for additional antibiotics. He is stable from my perspective for discharge. Please have him follow up with me in approximately 2 weeks time for suture and staple removal. Thank you for allowing us to assist in this kind man's care P Fall Risk Details Current Medications: Current Medications Acetaminophen (Acetaminophen 325 Mg Tablet) 650 mg PO Q6H PRN PRN Reason: Pain, Mild (Pain Scale 1-3) Last Admin: 03/05/21 21:33 Dose: 650 mg Documented by: Amiodarone HCl (Amiodarone Hcl 200 Mg Tablet) 200 mg PO DAILY [facility] Last Admin: 03/09/21 08:15 Dose: 200 mg Documented by: Amlodipine Besylate (Amlodipine Besylate 2.5 Mg Tablet) 2.5 mg PO DAILY [facility]; Protocol Last Admin: 03/09/21 08:15 Dose: 2.5 mg Documented by: Apixaban (Apixaban 5 Mg Tablet) 5 mg PO BID [facility] Last Admin: 03/09/21 08:15 Dose: 5 mg Documented by: Bisacodyl (Bisacodyl 10 Mg Supp.Rect) 10 mg [place] DAILY PRN PRN Reason: Constipation Docusate Sodium (Docusate Sodium 100 Mg Capsule) 100 mg PO DAILY [facility] Last Admin: 03/09/21 08:15 Dose: 100 mg Documented by: Fentanyl (Fentanyl Citrate/Pf 100 Mcg/2 Ml Vial) 25 mcg IVPUSH Q5M PRN; P rotocol PRN Reason: Pain, Moderate (Pain Scale 4-6 Last Admin: 03/05/21 09:36 Dose: 25 mcg Documented by: Cefepime HCl 2 gm/ Sodium (Chloride) 50 mls @ 100 mls/hr IV Q12H [facility] Last Infusion: 03/08/21 21:55 Dose: Infused Documented by: Metoprolol Tartrate (Metoprolol Tartrate 25 Mg Tablet) 25 mg PO BID [facility]; Protocol Last Admin: 03/09/21 08:15 Dose: 25 mg Documented by: Morphine Sulfate (Morphine Sulfate 2 Mg/Ml Cartridge) 2 mg IVPUSH Q4H PRN; Protocol PRN Reason: Pain, Severe (Pain Scale 7-10) Last Admin: 03/06/21 13:44 Dose: 2 mg Documented by: Ondansetron HCl (Ondansetron Hcl 4 Mg/2 Ml Vial) 4 mg IVPUSH Q8H PRN PRN Reason: Nausea and Vomiting Ondansetron HCl (Ondansetron Hcl 4 Mg/2 Ml Vial) 4 mg IVPUSH ONCE PRN PRN Reason: Nausea and Vomiting Oxycodone HCl (Oxycodone Hcl Immed Release 5 Mg Tablet) 5 mg PO Q6H PRN PRN Reason: Pain, Moderate (Pain Scale 4-6 Last Admin: 03/09/21 08:14 Dose: 5 mg Documented by: Pharmacy Consult (Consult Rx Perform Med Rec) 1 each MISCELLANE ONCE PRN PRN Reason: Consult order Pharmacy Consult (Consult Rx Vancomycin Dosing) 1 each MISCELLANE DAILY PRN PRN Reason: Consult order Polyethylene Glycol (Polyethylene Glycol 3350 17 Gm Powd.Pack) 17 gm PO DAILY PRN PRN Reason: Constipation Sodium Chloride (0.9 % Sodium Chloride Flush 3 Ml Syringe) 3 ml IVFLUSH QSHIFT [facility] Last Admin: 03/09/21 08:15 Dose: 3 ml Documented by: Time Spent With Patient Time: Total time spent is greater than 50% in coordination of care (as documented) at patient's floor/unit and/or counseling patient: Time with patient: 15 - 24 minutes Procedures Date of Service Date of Service: 03/09/21 Quality Stroke Does the patient have a stroke diagnosis?: No VTE Prior VTE?: No VTE Risk Level:: Medical - moderate - high VTE Device Contraindication: Treatment Not Indicated VTE Drug Contraindication: N/A - Med Ordered
[2021-03-09] MEDS: cefEPime HCl 2 GM in 0.9 % Sodium Chloride 50 ML IV (10:00)
[2021-03-09 11:22] VITALS: BP 119/54; PULSE 59; RESP 18; TEMP 36.7; O2SAT 100
--- NOTE | 2021-03-09 11:31 | MHC.CM.PN ---
PT CLEARED FOR D/C TODAY, CM HAS CONTACTED [facility] AND AWAITING TIME FOR TRANSFER BACK.
--- NOTE | 2021-03-09 11:41 | PM.DS ---
DS: Providers Provider Date of Service: 03/09/21 Date of admission: 03/03/21 14:02 Primary care physician: Bimal Velez MD Consults: 03/03/21 14:10 Consult to Vascular Surgery Routine Consulting Provider: Shashi Mandel Reason for consultation: nonhealing left foot ulcer/osteo Has provider been notified: No 03/03/21 17:07 Consult to Infectious Diseases Routine Consulting Provider: Gala Garcia Reason for consultation: fot ulcer cellulitis osteo Has provider been notified: No DS: Diagnosis Discharge Diagnosis (1) PAD (peripheral artery disease): Status: Acute DS: Summary Hospital Course Hospital Course: Date of Service: 03/03/21 Attending physician on admission: Kylah Bauer Chief Complaint: Left foot wound/fever 86-year-old gentleman, with past medical history significant for atrial fibrillation on Eliquis, chronic kidney disease, peripheral artery disease and chronic known healing left foot ulcer was sent from nursing facility due to fever of 101.8 this morning, patient is not aware why he was sent to Emergency Room today but complain of generalized weakness and left foot discomfort, patient has mostly bed ridden since December due to left leg pain, patient is being followed by wound clinic as well as Dr. Mandel he was recently seen by him on February 19 for nonhealing left foot ulcer and was recommended 2nd toe amputation versus transmetatarsal amputation, in the emergency room patient noted to have elevated WBC count of 18,000, lactic acid of 2.2, elevated creatinine and an x-ray of foot was concerning for left 5th metatarsal osteomyelitis in the emergency room patient received IV cefepime and vancomycin and now being admitted for continued monitoring and treatment for nonhealing left foot ulcer/osteomyelitis and cellulitis of left leg. HOSPITAL COURSE 85yo M SNF resident with HFrEF, AF, CKD; multiple admissions for mechanical fall and hip fracture s/p ORIF in October and then for sepsis related to aspiration + LLE cellulitis in December admitted for osteomyelitis at site of nonhealing ulcer of L foot, x-ray of foot showed osteomyelitis of 5th metatarsal bone, patient initially treated with IV cefepime, blood cultures came back negative, patient seen by Dr. Mandel From vascular surgery and underwent transmetatarsal amputation postprocedure he was continued on antibiotic, subsequently patient seen by Dr. Mandel and feels patient does not require any further antibiotic continue dressing change upon discharge, he is to full weightbear and will need a surgical shoe for ambulation, outpatient follow-up with Dr. Mandel for removal of marquis. Patient on admission also noted to have LAUREN and lactic acidosis likely pre renal treated with IV fluid lactic acid and renal function normalized recommend to hold Lasix. History of chronic AF, currently normal sinus rhythm, continue metoprolol amiodarone and Eliquis chronic HFrEF appears euvolemic continue metoprolol, use Lasix only with 2-3 lb weight gain in 48 hours or with any evidence of shortness of breath or heart failure. In regard to HTN continue amlodipine and metoprolol For severe protein-calorie malnutrition recommend dietary supplement Time Spent with Patient Time attestation: Total time spent providing and/or coordinating discharge services: Discharge coordination time: Greater than 30 minutes Quality: Stroke Does the patient have a stroke diagnosis?: No Physical Exam Vital Signs: Vital Signs: Last Vital Signs Temp 98.1 F 03/09/21 11:22 Pulse 59 03/09/21 11:22 Resp 18 03/09/21 11:22 BP 119/54 L 03/09/21 11:22 Pulse Ox 100 03/09/21 11:22 BMI result Body Mass Index 19.3 Gen: no acute distress HEENT: sclera anicteric, moist mucus membranes Neck: supple Lungs: clear to auscultation bilaterally Heart: regular rate and rhythm, no murmurs Abd: soft, non-tender, non-distended Ext: L foot stump in dressing, no drainage Skin: warm/well-perfused Neuro: alert and oriented x3, no focal findings Psych: appropriate affect ? DS: Data Data Completed and Pending Completed studies during hospitalization [Text1]: Pending at discharge 03/05/21 08:32 Surgical [PTH] Routine Procedures Insertion of Infusion Device into Right Brachial Vein, Percutaneous Approach (10/18/20) Replacement of Left Hip Joint, Femoral Surface with Synthetic Substitute, Uncemented, Open Approach (10/18/20) Labs on day of discharge: Laboratory Results - last 24 hr 03/09/21 03/09/21 03/09/21 04:41 04:41 04:41 WBC 8.5 RBC 3.49 L Hgb 10.3 L Hct 32.9 L MCV 94.3 MCH 29.5 MCHC 31.3 RDW 13.9 Plt Count 191 MPV 10.6 Absolute Nucleated RBC 0.000 Nucleated RBC % (auto) 0.0 ESR 53 H Sodium 138 Potassium 4.8 Chloride 104 Carbon Dioxide 26 Anion Gap 13 BUN 36 H Creatinine 1.39 Estim Creat Clear Calc 34.8 Estimated GFR 48 Random Glucose 108 Calcium 8.7 C-Reactive Protein 8.23 H Discharge Plan Discharge Patient Disposition: Xfer SNF Discharge Diagnosis: Left foot nonhealing ulcer/osteomyelitis Left leg cellulitis Acute kidney injury Referrals: Bartolome Cabrera [Outside] - 1 Day (RESUMPTION OF CARE) Bimal Velez MD [Primary Care Provider] - 1 Week Discharge Medications: Continued amiodarone 200 mg tablet 200 mg PO DAILY Qty: 90 RF: 1 apixaban [Eliquis] 5 mg tablet 5 mg PO BID Qty: 180 RF: 3 metoprolol tartrate 25 mg tablet 25 mg PO BID RF: 0 amlodipine [Norvasc] 2.5 mg tablet 2.5 mg PO DAILY Qty: 30 RF: 0 acetaminophen 325 mg Tablet 650 mg PO Q4H PRN (Reason: Fever Or Pain) RF: 0 docusate sodium 100 mg Capsule 100 mg PO DAILY RF: 0 bisacodyl [Dulcolax (bisacodyl)] 10 mg Suppository 10 mg SD DAILY PRN (Reason: Constipation) RF: 0 hydrocodone-acetaminophen 5-325 mg Tablet 1 tab PO Q6H PRN (Reason: Pain (Scale Score 7-10)) RF: 0 polyethylene glycol 3350 [Miralax] 17 gram Powder In Packet 17 g PO DAILY PRN (Reason: Constipation) RF: 0 sennosides [senna] 8.6 mg Tablet 17.2 mg PO BEDTIME RF: 0 Discontinued furosemide 20 mg Tablet 20 mg PO DAILY RF: 0 Discharge Orders: Discharge Order (Routine); Ordered 03/09/21 Ordered By: Kylah Bauer Diet: low fat, low cholesterol Activity on Discharge: As tolerated Stand Alone Forms: Patient Portal Discharge page Activity Restrictions/Additional Instructions: Wound care upon discharge: xeroform, 4x4 and Kerlix wrap to be changed daily. Please call Dr. Mandel at [phone] for 2 week follow up for suture and staple removal Care Plan Goals: Cellulitis resolved, status post left foot amputation, continue dressing change as above, full weight-bearing use surgical shoe/PT eval Health Concerns: Continue all home medication as before, Lasix discontinued since patient appears euvolemic use Lasix as needed for greater than 3 lb weight gain in 48 hours or patient becomes short of breath Plan of Treatment: Outpatient follow-up with Dr. Mandel in 2 weeks as above, follow up with PCP in 1 week Assessment: As above
[2021-03-09 12:34] LABS: COVID-19 Test Negative (Negative); IDNOW Serial# 9DD0AD1C
--- NOTE | 2021-03-09 13:27 | MHC.CM.PN ---
IMM 03/09, PT DISCHARGING BACK TO [facility] AT 4PM TODAY [facility]IA [facility] FOR BLS TRANSPORT.
--- NOTE | 2021-03-09 13:42 | MHC.CLN ---
F/U INTAKE VARIABLE BUT APPEARS VERY GOOD MOST MEALS. CONTINUE CARDIAC DIET WITH ENSURE TID (1050 KCAL, 39 G PROTEIN).
[2021-03-09] MEDS: Acetaminophen 325 MG TABLET 650 MG PO (14:11)
[2021-03-09 15:40] VITALS: BP 135/64; PULSE 60; RESP 17; TEMP 37.1; O2SAT 99
== END 2021-03-09 04:45 | disposition skilled nursing facility (03) | DRG 474 ==
LOC: HO.ED 14:08 → HO.EDOVER 14:13 → HO.S3 03-04 09:48
PROVIDERS: Family Medicine; Physician Assistant; Surgery Vascular Surgery; Admitting Provider Hospitalist; Emergency Provider Emergency Medicine; PCP Internal Medicine; Visit Provider Hospitalist
PROC: 0Y6N0Z9 Detachment at Left Foot, Partial 1st Ray, Open Approach (ICD-10-PCS; CPT 28805; principal; 2021-03-05 07:30)
DX: M86.9 Osteomyelitis, unspecified (principal); E43 Unspecified severe protein-calorie malnutrition; L97.526 Non-pressure chronic ulcer of other part of left foot with bone involvement without evidence of necrosis; N17.9 Acute kidney failure, unspecified; I13.0 Hypertensive heart and chronic kidney disease with heart failure and stage 1 through stage 4 chronic kidney disease, or unspecified chronic kidney disease; I50.22 Chronic systolic (congestive) heart failure; I48.20 Chronic atrial fibrillation, unspecified; Z68.1 Body mass index [BMI] 19.9 or less, adult; L03.116 Cellulitis of left lower limb; E86.0 Dehydration; I73.9 Peripheral vascular disease, unspecified; N18.9 Chronic kidney disease, unspecified; Z20.822 Contact with and (suspected) exposure to COVID-19; Z88.0 Allergy status to penicillin; Z88.2 Allergy status to sulfonamides; Z79.01 Long term (current) use of anticoagulants; Z79.899 Other long term (current) drug therapy; Z66 Do not resuscitate
CPT/HCPCS: 36415; 73630; 73660; 80048; 80076; 80202; 81001; 83036; 83605; 83735; 85025; 85027; 85610; 85652; 85730; 86140; 87040; 87071; 87077; 87186; 87205; 87635; 88305; 88311; 93005; 96365; 96375; 99285; 99291; J0692; J2270; J2370; J2405; J3010; J3370

== ENCOUNTER → 2021-03-24 13:43 | Outpatient (BNVA) | payer BC, SELFPAY | PROVIDERS: PCP Internal Medicine; Visit Provider Surgery Vascular Surgery ==

== ENCOUNTER → 2021-04-14 13:19 | Outpatient (BNVA) | payer BC, SELFPAY | PROVIDERS: PCP Internal Medicine; Visit Provider Surgery Vascular Surgery ==

== ENCOUNTER 2021-05-19 08:26 | Outpatient (RCR) | payer BC, SELFPAY | END 2021-06-04 09:10 | disposition home or self-care (01) | LOC: HO.WCC 08:26 | PROVIDERS: PCP Internal Medicine; Visit Provider Physician Assistant | DX: L97.412 Non-pressure chronic ulcer of right heel and midfoot with fat layer exposed (principal); I11.0 Hypertensive heart disease with heart failure; I50.9 Heart failure, unspecified; Z89.422 Acquired absence of other left toe(s) | CPT/HCPCS: 11042; 87071; 87077; 87186; 87205; 88304; 88305; 88312; 99212 ==

== ENCOUNTER → 2021-05-21 10:28 | Outpatient (BNVA) | payer BC, SELFPAY | PROVIDERS: PCP Internal Medicine; Visit Provider Surgery Vascular Surgery ==

== ENCOUNTER 2022-09-13 13:02 | Outpatient (REF) | payer BC, SELFPAY ==
--- NOTE | ~2022-09-13 | US_ITS ---
EXAMINATION: Noninvasive assessment of the bilateral lower extremities with ARTERIAL DUPLEX and ANKLE BRACHIAL INDICES (ABIs). CLINICAL INFORMATION: Peripheral vascular disease with lower extremity claudication TECHNIQUE: Duplex Doppler techniques with waveform analysis and measurement of velocities in the bilateral common femoral, profunda femoris, superficial femoral, popliteal and tibial arteries were performed. Additionally, ankle pulse volume recordings, ankle pressure measurements and ankle brachial indices were obtained of the lower extremity arterial system bilaterally. The study was performed only at rest. COMPARISON: Arteriogram from 01/19/2021 FINDINGS: DIRECT DUPLEX DOPPLER FINDINGS: RIGHT LEG: Diffuse arterial calcinosis seen throughout the arterial vessels. Common femoral artery: 95.1 cm/s, phasicity: Triphasic Profunda femoris artery: 41.3 cm/s, phasicity: Biphasic Superficial femoral artery (proximal): 49.5 cm/s, phasicity: Biphasic Superficial femoral artery (mid): 54.2 cm/s, phasicity: Biphasic Superficial femoral artery (distal): 32.4 cm/s, phasicity: Biphasic Popliteal artery: 33.8 cm/s, phasicity: Biphasic Posterior tibial artery: 74.3 cm/s, phasicity: Biphasic Peroneal artery: 70.3 cm/s, phasicity: Biphasic LEFT LEG: Diffuse arterial calcinosis seen throughout the arterial vessels. Common femoral artery: 53.8 cm/s, phasicity: Biphasic Profunda femoris artery: 60.5 cm/s, phasicity: Biphasic Superficial femoral artery (proximal): 53.8 cm/s, phasicity: Biphasic Superficial femoral artery (mid): 55.0 cm/s, phasicity: Triphasic Superficial femoral artery (distal): 39.7 cm/s, phasicity: Biphasic Popliteal artery: 49.5 cm/s, phasicity: Triphasic Posterior tibial artery: 83.3 cm/s, phasicity: Triphasic Peroneal artery: Not visualized Small De Leon's cyst in the left popliteal fossa measuring 2.1 x 0.5 x 1.7 cm ANKLE-BRACHIAL INDEX: Right: Nondiagnostic? Left: 0.82 ANKLE PRESSURES: Right: PT greater than 200, DP greater than 200 Left: PT?136, DP?not audible ANKLE PVR WAVEFORMS: Right: Abnormal Left: Abnormal US/US arterial duplex LE BI IMPRESSION: Right leg: Nondiagnostic ankle brachial index due to noncompressibility. Diffuse arterial calcinosis seen throughout the arterial vessels. Patent arterial flow is seen without significant stenosis on duplex Doppler Left leg: Mildly decreased left ankle-brachial index. Diffuse arterial calcinosis seen throughout the arterial vessels. Patent arterial flow seen throughout the visualized vessels of the left lower extremity. Small De Leon's cyst ANTOINETTE Reference: - >1.4 = calcified vessels - 0.9 - 1.4 = normal - no significant arterial disease - 0.7 - 0.89 = mild peripheral arterial disease - 0.51 - 0.69 = moderate peripheral arterial disease - ? 0.50 = severe peripheral arterial disease - < .30 = critical arterial disease
== END 2022-09-13 13:03 | disposition home or self-care (01) ==
LOC: HO.US 13:02
PROVIDERS: Visit Provider Surgery Vascular Surgery
DX: I70.213 Atherosclerosis of native arteries of extremities with intermittent claudication, bilateral legs (principal)
CPT/HCPCS: 93923; 93925

== ENCOUNTER 2022-10-14 11:04 | Outpatient (AMB) | payer BC, SELFPAY ==
--- NOTE | 2022-10-14 11:08 | MHC.OFFVIS ---
Intake Intake Visit Reasons: Follow up 09/13 US Intake Note: Patient is here for a follow up after arterial US 09/13/22, Accompanied by: cousin Allergies streptomycin [Streptomycin] Allergy (Mild, Verified 10/14/22 11:12) UNKNOWN Penicillins Allergy (Unknown, Verified 10/14/22 11:12) unk Sulfa (Sulfonamide Antibiotics) [SULFA (SULFONAMIDE ANTIBIOTICS)] Allergy (Unknown, Verified 10/14/22 11:12) UNKNOWN HPI Follow up 09/13 HPI Details Very pleasant 87-year-old gentleman presents for surveillance follow-up regarding arterial disease. 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 He is about a year and a half out it remains healed. He has no other interval issues. He now presents for follow-up. He is currently in a residential facility. [facility] Medical History Acute exacerbation of CHF (congestive heart failure) Atrial fibrillation Candidal intertrigo Cardiomyopathy Cardiomyopathy, unspecified Cellulitis CHF (congestive heart failure) Failure to thrive HTN (hypertension) HTN (hypertension) PAD (peripheral artery disease) PAF (paroxysmal atrial fibrillation) Persistent atrial fibrillation Pressure sore Severe protein-calorie malnutrition Surgical History Hx of appendectomy Family History Father No problems noted. Mother No problems noted. Social History Household Members: Other Household Members Other:: has cousin that lives next door, and neighbor is retired nurse that helps Housing: Senior Living Do you presently have visiting nurse or other home services: No Alcohol intake: never Patient Tobacco Use Status: Never used Tobacco Advance Directives Date on File: 04/29/20 service: Yes Current occupational status: retired Current occupation: rt handed Review of Systems Const All systems reviewed & are unremarkable except as noted in HPI and below Reports no additional complaints ENT Reports Normal hearing present Card Denies chest pain, Denies chest pain at rest, Denies chest pain with activity and Denies pedal edema Resp Denies cough GI Denies abdominal pain Musc Denies abnormal gait, Denies muscle cramps and Denies radiating pain into limb Skin/Breast Denies skin ulcer and Denies wounds Neuro Reports Normal hearing present and Denies abnormal gait Psych Reports no additional complaints Physical Exam Const General: cooperative, healthy appearing and comfortable Orientation/consciousness: oriented to person, oriented to place and oriented to time HEENT Head: Yes normal to inspection Neck Neck: Yes normal visual inspection Carotids: no bruits Chest Chest palpation & inspection: normal inspection of the chest Resp Effort & Inspection: normal respiratory effort and able to speak in complete sentences Auscultation: clear to auscultation bilaterally, no crackles, no rales, no rhonchi and no wheezes Cardio Rate: regular rate Rhythm: regular rhythm Heart sounds: S1 normal heart sound present and S2 normal heart sound present Bruits: no carotid bruits Peripheral pulses: Peripheral pulses 2+ throughout GI Inspection: Yes normal to inspection Skin Other: Left trans met well-healed Wounds: no wounds Hair: normal Neuro General: oriented to person, oriented to place and oriented to time Cranial nerves: Yes CN's II-XII intact bilaterally and Yes Normal hearing present Cognition (Neuro): normal cognition Motor exam (neuro): 5/5 motor strength present throughout Extrem Other: venous exam: No significant superficial varicosities or spider telangiectasias, minimal edema General: No clubbing, No cyanosis and No edema Psych Appearance: grossly normal Mental Status: mental status grossly normal Speech and movement: Normal speech and movement present Results Reviewed Results Reviewed: Noninvasive arterial testing right side was nondiagnostic left side was 0.82. On direct ultrasound appear to have reasonable waveforms all the way down to the foot. This was noninvasive testing dated 09/13/2022 of which written reports and images were reviewed. Assessment & Plan Assessment & Plan (1) PAD (peripheral artery disease): Code(s): I73.9 - Peripheral vascular disease, unspecified Plan: In short patient has stable claudication. I did review the pathophysiology of peripheral vascular disease with the patient. In addition we did discuss routine conservative measures including a healthy diet and the importance of exercise and ambulation. We did discuss risk factor modification. The patient will continue to to follow-up with surveillance follow-up in approximately 1 year. Thank you for allowing us to participate in this patient's care. If there are any questions or concerns please do not hesitate to contact us. Orders: Orders US arterial duplex LE BI 364 Days I73.9 - Peripheral vascular disease, unspecified Coding Level of Care Code Est Pt Level 4 (19455) Diagnoses PAD (peripheral artery disease) I73.9
== END 2022-10-14 11:31 | disposition home or self-care (01) ==
LOC: HO.HVS 11:04
PROVIDERS: PCP Internal Medicine; Visit Provider Surgery Vascular Surgery
DX: I73.9 Peripheral vascular disease, unspecified (principal)
CPT/HCPCS: 99213

== ENCOUNTER → 2022-10-14 11:04 | Outpatient (BNVA) | payer BC, SELFPAY | PROVIDERS: PCP Internal Medicine; Visit Provider Surgery Vascular Surgery ==

== ENCOUNTER 2024-02-17 11:42 | Inpatient (IN) | payer MEDICARE, BC, SELFPAY ==
[2024-02-17] VITALS (7 sets, daily range): BP systolic 111–126; BP diastolic 72–80; PULSE 85–113; RESP 14–18; TEMP 36–37.4; O2SAT 92–96; BMI 21.1
--- NOTE | 2024-02-17 | ECG_ITS ---
Test Reason : afib Blood Pressure : / mmHG Vent. Rate : 115 BPM Atrial Rate : 000 BPM P-R Int : 000 ms QRS Dur : 102 ms QT Int : 310 ms P-R-T Axes : 000 067 208 degrees QTc Int : 428 ms Atrial fibrillation with rapid ventricular response Minimal voltage criteria for LVH, may be normal variant ( Venancio product ) Nonspecific ST and T wave abnormality Abnormal ECG When compared with ECG of 03-MAR-2021 11:03, Atrial fibrillation has replaced Sinus rhythm Vent. rate has increased BY 48 BPM T wave inversion now evident in Lateral leads Referred By: Generic ED Physician Electronically Signed By:Cortes Adhikari
--- NOTE | ~2024-02-17 | XR_ITS ---
EXAMINATION: XR CHEST CLINICAL INFORMATION: hypoxia COMPARISON: February 18, 2024 TECHNIQUE: Frontal view of the chest was obtained. FINDINGS: The focal patchy and confluent opacities both lungs. Opacities in the lower hemithoraces with a meniscal shaped pattern. Cardiomediastinal silhouette is enlarged. No pneumothorax. XR/XR chest 1V IMPRESSION: Worsening pulmonary edema increased bilateral pleural effusions. Electronically signed by: Herb Ray MD 02/23/2024 03:46 PM EST
--- NOTE | ~2024-02-17 | XR_ITS ---
EXAMINATION: XR CHEST CLINICAL INFORMATION: Shortness of breath. COMPARISON: Chest radiograph dated January 12, 2021. TECHNIQUE: 2 views of the chest were obtained. FINDINGS: The heart is normal in size. There is calcific atherosclerotic disease of the aorta. There is a large opacity within the right mid to upper lung. There is a smaller opacity within the medial right lung base. There is an opacity at the left lung base. There are bilateral pleural effusions, left greater than right. No pneumothorax. No acute osseous abnormality. XR/XR chest 2V IMPRESSION: Findings consistent with multifocal pneumonia. Additionally, there are bilateral pleural effusions. Electronically signed by: Kevin Gonzalez DO 02/17/2024 02:06 PM [facility]
--- NOTE | ~2024-02-17 | CT_ITS ---
EXAMINATION: CT ABDOMEN AND PELVIS WITHOUT CONTRAST CLINICAL INFORMATION: Concerning hydronephrosis COMPARISON: Recent renal ultrasound dated February 20, 2024. Compare with prior CT dated December 13, 2020. TECHNIQUE: Multidetector volumetric imaging was performed from the superior aspect of the liver through the pubic symphysis. Sagittal and coronal reformatted images were obtained on the technologist's workstation. This CT examination was performed using dose optimization techniques as appropriate, variously including the following: *Automated exposure control *Adjustment of mA and/or kV according to patient size (this includes techniques or standardized protocols for targeted exams where dose is matched to indication/reason for exam; i.e. extremities or head) *Use of iterative reconstruction technique DLP: 563 mGy-cm FINDINGS: LUNG BASES: Limited evaluation of the intra-abdominal solid organs and vascular structures due to lack of IV contrast. There are multiple stacked calculi in the distal right ureter, the largest measures 9 mm in maximal length. There is dilatation of the right pelvicalyceal system and right ureter proximal to this. There is a 6 mm calculus in the distal left ureter. There is mild to moderate dilatation of the left pelvicalyceal system and left ureter proximal to the calculus. There is a 7 mm calculus in the distal left ureter near the vesicoureteral junction. There is a Perkins catheter in a collapsed bladder. Multiple intraluminal calculi in the dependent portion of the bladder. The largest measures 8 mm. There is wall thickening and, urinary bladder. 2.7 cm exophytic cystic lesion left kidney. Bilateral pleural effusions, moderate to large volume. Pulmonary patchy groundglass, multifocal and peripheral. Calcified plaques in the coronary arteries and thoracic aorta. Trace of pericardial effusion. Numerous diverticula throughout the large intestine. Abundant stool in the large intestine. No intestinal obstruction pattern. No ascites. No pneumoperitoneum. No pneumatosis intestinalis. Liver measures 15 cm. Vascular calcifications, intrahepatic. No intrahepatic or extrahepatic biliary ductal dilatation. Gallbladder is contracted. No peripancreatic fluid collection. Reduced volume of the pancreatic parenchyma. Spleen measures 9 cm. Vascular calcifications in the splenic hilum. No nodular lesions in the adrenal glands. Calcified plaques throughout the vessels in the retroperitoneum, gluteal and upper thighs. No aneurysm, abdominal aorta. Nonspecific prominent lymph nodes, retroperitoneal. Beam hardening artifact secondary to left hip metallic prosthesis. Multilevel thoracolumbar spondylosis resulting in grade 1 anterolisthesis L3-4 and grade 1 retrolisthesis L4-5 and L5-S1 levels. Levoconvex curvature apex at L2-3. CT/CT abdomen pelvis wo IV con IMPRESSION: Multiple obstructing calculi distal ureters resulting in hydroureteronephrosis, bilaterally. Bilateral pleural effusions, moderate to large volume. Probable interstitial lung edema in the correct clinical settings. Atherosclerosis disease which could be seen patients with diabetes and or renal insufficiency. Fleischner guidelines were followed. Electronically signed by: Herb Ray MD 02/22/2024 12:43 PM [facility]
--- NOTE | ~2024-02-17 | XR_ITS ---
EXAMINATION: XR CHEST CLINICAL INFORMATION: Hypoxia. COMPARISON: Most recent CT chest dated 02/17/2024. TECHNIQUE: Frontal view of the chest was obtained. FINDINGS: Bilateral pleural effusions with diffuse bilateral airspace opacities, most prominent within the right upper lobe, similar when compared to the prior examination. No pneumothorax. Stable cardiomediastinal silhouette. XR/XR chest 1V IMPRESSION: Bilateral pleural effusions with diffuse bilateral airspace opacities, most prominent within the right upper lobe, similar when compared to the prior examination. Electronically signed by: Fish Batista MD 02/18/2024 04:[address] [facility]
--- NOTE | ~2024-02-17 | CT_ITS ---
EXAMINATION: CT CHEST WITHOUT CONTRAST CLINICAL INFORMATION: Effusion versus consolidation. COMPARISON: Most recent chest radiograph done earlier the same day. CT chest dated 12/12/2020. TECHNIQUE: Multidetector volumetric CT imaging of the chest was done. Axial MIP volume rendering provided. Sagittal and coronal reformatted images were obtained. This CT examination was performed using dose optimization techniques as appropriate, variously including the following: *Automated exposure control *Adjustment of mA and/or kV according to patient size (this includes techniques or standardized protocols for targeted exams where dose is matched to indication/reason for exam; i.e. 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 LUNGS/PLEURA: Moderate bilateral pleural effusions with adjacent atelectasis versus infiltrates in the lower lobes. There are bilateral upper lung airspace opacities, most dense within the right upper lobe and right middle lobe. Associated air bronchograms and ground-glass opacities. Findings are consistent with multifocal pneumonia. No pneumothorax. MEDIASTINUM: Mild cardiomegaly, increased when compared to the prior examination. No pericardial effusion. No thoracic aortic dilatation. Atherosclerotic calcifications. No superior mediastinal lymphadenopathy. Evaluation limited without IV contrast. Unremarkable thyroid. CORONARY ARTERY CALCIFICATION: Present. AXILLA: No lymphadenopathy. UPPER ABDOMEN: Unremarkable. OSSEOUS STRUCTURES: Unremarkable. CT/CT chest wo IV con IMPRESSION: 1. Moderate bilateral pleural effusions with adjacent atelectasis versus infiltrates in the lower lobes. 2. Bilateral upper lung airspace opacities, most dense within the right upper lobe and right middle lobe. Associated air bronchograms and ground-glass opacities. Findings are consistent with multifocal pneumonia. 3. Mild cardiomegaly, increased when compared to the prior examination. Fleischner guidelines were followed. Electronically signed by: Fish Batista MD 02/17/2024 03:12 PM [facility]
--- NOTE | ~2024-02-17 | US_ITS ---
EXAMINATION: US RETROPERITONEAL LIMITED (RENAL ONLY) CLINICAL INFORMATION: LAUREN. COMPARISON: CT abdomen and pelvis 12/13/2020. TECHNIQUE: Real-time imaging of the kidneys. FINDINGS: RIGHT KIDNEY: 9.4 x 4.6 x 4.2 cm (SAG x AP x TRV). Diffusely echogenic right renal parenchyma. Unremarkable renal cortical thickness. Moderate to severe right hydronephrosis and proximal hydroureter. No renal calculi or focal parenchymal lesion identified. LEFT KIDNEY: Limited visualization. 6.4 x 3.8 x 3.2 cm (SAG x AP x TRV). Echogenicity of the left kidney is suboptimally evaluated. Approximately 2.6 cm benign left mid simple renal cyst for which no further dedicated follow-up imaging as indicated. No renal calculi or hydronephrosis identified. BLADDER: Muscular hypertrophy with bladder wall cellules. There is a lentiform material which is isoechoic to surrounding soft tissues located in the dependent portion of the urinary bladder. It is uncertain whether or not minimal flow is appreciated within. Prevoid bladder volume is 563 mL. Postvoid imaging not obtained. PROSTATE GLAND: Measures 5.1 x 4.9 x 4.5 cm, for an estimated volume of 59 mL. The median lobe protrudes into the bladder base. OTHER: Incidentally visualized right pleural fluid. US/US renal BI IMPRESSION: Moderate to severe right hydronephrosis and proximal hydroureter. Diffusely echogenic right renal parenchyma, raising the possibility of medical renal disease. Limited evaluation of the left kidney. The technologist measures the left kidney to be significantly smaller than the right. Differential diagnosis includes, but is not limited to, artifact related to suboptimal measurement; left renal artery stenosis, etc. Muscular hypertrophy with bladder wall cellules. Lentiform material which is isoechoic to surrounding soft tissues located in the dependent portion of the urinary bladder. It is uncertain whether or not minimal flow is appreciated within. Differential diagnosis includes, but is not limited to, layering debris within the urinary bladder and, less likely, neoplastic, etc. Incidentally visualized right pleural fluid. Urological consultation is recommended. Enlarged prostate. Electronically signed by: Zack Joe MD 02/21/2024 10:07 AM [facility] [place]
--- NOTE | 2024-02-17 11:58 | ED_ITS ---
HPI - General Adult General Chief complaint: General Medical Stated complaint: FROM SNF, WEAKNESS, LACK OF APPETITE, ABNORMAL LAB Time Seen by Provider: 02/17/24 11:58 Source: patient Limitations: no limitations History of Present Illness ED Provider: Lori Holland PA-C HPI narrative: 89-year-old male with a history of dementia with the associated behavioral/ psychotic disturbances, systolic heart failure with the EF of 50-55% on echo 2020, AFib on apixaban, hypertension, chronic kidney disease, peripheral arterial disease, presents from sniff with generalized weakness. Per EMS, the patient has become increasingly weak and lethargic over the past week. He was noted to have an elevated in his renal function. Unclear if the patient has been sick with a cough or cold symptoms, fevers, vomiting, diarrhea or dysuria. The patient has no physical concerns or complaints at this time. He denies chest pain, shortness of breath, or abdominal pain. Related Data Home Medications ?Medication ?Instructions ?Recorded ?Confirmed metoprolol tartrate 25 mg tablet 25 mg PO BID 10/18/20 03/03/21 acetaminophen 325 mg tablet 650 mg PO Q4H PRN Fever Or Pain 03/03/21 03/03/21 bisacodyl 10 mg rectal suppository 10 mg WI DAILY PRN Constipation 03/03/21 03/03/21 (Dulcolax (bisacodyl)) docusate sodium 100 mg capsule 100 mg PO DAILY 03/03/21 03/03/21 hydrocodone 5 mg-acetaminophen 325 1 tab PO Q6H PRN Pain (Scale Score 03/03/21 03/03/21 mg tablet 7-10) polyethylene glycol 3350 17 gram 17 g PO DAILY PRN Constipation 03/03/21 03/03/21 oral powder packet (Miralax) sennosides 8.6 mg tablet (senna) 17.2 mg PO BEDTIME 03/03/21 03/03/21 potassium chloride 20 mEq 20 meq PO DAILY 03/24/21 tablet,extended release lorazepam 0.5 mg tablet 0.5 mg PO BID 02/17/24 Previous Rx's ?Medication ?Instructions ?Recorded amiodarone 200 mg tablet 200 mg PO DAILY #90 tabs 02/21/20 apixaban 5 mg tablet (Eliquis) 5 mg PO BID #180 caps 06/04/20 amlodipine 2.5 mg tablet (Norvasc) 2.5 mg PO DAILY #30 tabs 10/26/20 Allergies Allergy/AdvReac Type Severity Reaction Status Date / Time streptomycin [Streptomycin] Allergy Mild UNKNOWN Verified 02/17/24 11:52 Penicillins Allergy Unknown unk Verified 02/17/24 11:52 Sulfa (Sulfonamide Allergy Unknown UNKNOWN Verified 02/17/24 11:52 Antibiotics) [SULFA (SULFONAMIDE ANTIBIOTICS)] Review of Systems 2 Review of Systems: Unable to obtain due to the patient's dementia Yes all other systems are reviewed and are negative [facility] Past Medical History Medical History PAD (peripheral artery disease) Severe protein-calorie malnutrition Failure to thrive PAF (paroxysmal atrial fibrillation) Cardiomyopathy Candidal intertrigo Pressure sore Cellulitis Acute exacerbation of CHF (congestive heart failure) HTN (hypertension) HTN (hypertension) CHF (congestive heart failure) Cardiomyopathy, unspecified Persistent atrial fibrillation Atrial fibrillation Surgical History Hx of appendectomy Family History Family History Father No problems noted. Mother No problems noted. Social History Social History Household Members: Other Household Members Other:: has cousin that lives next door, and neighbor is retired nurse that helps Housing: [facility] Do you presently have visiting nurse or other home services: No Alcohol intake: former Comment: sitter at bedside Patient Tobacco Use Status: Never used Tobacco Smoked in Last 30 Days: No Use of substances other than those prescribed or required for medical reasons: No Advance Directives: Yes Advance Directives on File: Yes Advance Directives Date on File: 04/29/20 service: Yes Current occupational status: retired Current occupation: rt handed Physical Exam ED Vital Signs: Vital Signs - 24 hr 02/17/24 11:52 02/17/24 12:26 02/17/24 14:33 Temperature 98.4 F 99.3 F Pulse Rate 109 H 92 Respiratory Rate 18 14 Blood Pressure 124/80 118/78 Pulse Oximetry 92 96 Oxygen Delivery Method Room Air Room Air 02/17/24 16:13 Temperature Pulse Rate 85 Respiratory Rate 17 Blood Pressure 117/75 Pulse Oximetry 96 Oxygen Delivery Method Room Air BMI result Body Mass Index 21.1 Const Other: Alert, overall well-appearing Orientation/consciousness: oriented to person and patient oriented x3 HENMT Other: Dry oral mucosa Resp Other: Nonlabored respirations, poor inspiratory effort, diminished at the posterior bases, no audible wheezing or crackles Cardio Other: Normal peripheral perfusion GI Other: Abdomen is soft, nondistended nontender with deep palpation no guarding Skin Other: Warm dry no rash Neuro General: oriented to person, patient oriented x3, no focal motor deficits and CN's II-XI intact bilaterally Psych Other: Cooperative, pleasant Course Reevaluation(s) Reevaluation #1: Dimer elevated at 517, he does not meet criteria for the age adjusted cutoff. The chest x-ray reveals bilateral effusions and multifocal pneumonia, I am obtaining a CT of the chest to better differentiate the effusions. If needed, he can have a V/Q scan during his admission. He has an elevation in his renal function as well, I do not want to diurese him. It is appropriate to treat him for community-acquired pneumonia, he has not been hospitalized in several years, we will treat with ceftriaxone and doxycycline Medications Administered Discontinued Medications Generic Name Dose Route Start Last Admin Trade Name Freq PRN Reason Stop Dose Admin Acetaminophen 975 mg 02/17/24 12:27 02/17/24 12:51 Acetaminophen 325 Mg Tablet PO 02/17/24 12:28 975 mg ONCE ONE Administration Ceftriaxone Sodium 2 gm 02/17/24 12:27 02/17/24 12:51 Ceftriaxone Sodium 2 Gm Vial IVPUSH 02/17/24 12:28 2 gm ONCE ONE Administration Sodium Chloride 500 mls @ 500 mls/hr 02/17/24 14:32 02/17/24 17:22 Ns IV 02/17/24 15:31 Infused .Q1H ONE Infusion Doxycycline Hyclate 100 mg/ 250 mls @ 166.67 mls/hr 02/17/24 14:47 02/17/24 17:22 Sodium Chloride IV 02/17/24 16:16 Infused ONCE ONE Infusion Medical Decision Making Medical Decision Making MDM Narrative: 89-year-old male with a history of dementia with the associated behavioral/ psychotic disturbances, systolic heart failure with the EF of 50-55% on echo 2020, AFib on apixaban, hypertension, chronic kidney disease, peripheral arterial disease, presents from sniff with generalized weakness. Per EMS, the patient has become increasingly weak and lethargic over the past week. He was noted to have an elevated in his renal function. Unclear if the patient has been sick with a cough or cold symptoms, fevers, vomiting, diarrhea or dysuria. The patient has no physical concerns or complaints at this time. He denies chest pain, shortness of breath, or abdominal pain. Problem: Age, dementia, heart failure, AFib, chronic kidney disease History: Per long-term record I have considered the following differential diagnoses: Viral syndrome, pneumonia, UTI, sepsis, PE, heart failure exacerbation Plan: When the patient arrives, he is in AFib RVR, he is normotensive, he has a low-grade temp of 99.3? rectally, I am considering early signs of sepsis. We will screen basic labs, viral panel, blood cultures and lactic acid, UA and chest x-ray. Performed bedside echo, the patient is EF is further reduced from his prior echo of 2020, I am unable to visualize the IVC, given the patient is normotensive, he does not require the weight based IV fluid resuscitation per our sepsis protocol, we will give 500 mL bolus once. We will start empiric ceftriaxone. Giving Tylenol. It is also questionable that the patient is hypoxic, we are not getting adequate readings with his pulse ox...... With my bedside ultrasound when I was attempting to view the IVC, I did detect a large pleural effusion, this could be contributing to his potential hypoxia. However, I do not think this is heart failure exacerbation as he is not overtly hypertensive or volume overloaded on exam. Given the tachycardia and question of hypoxia, I am also considering PE, we will add a D-dimer. I have independently reviewed the following tests: Labs: No leukocytosis, not anemic, no electrolyte abnormality, creatinine elevated from his baseline at 1.77, lactic acid 2.0, urine not infected, he chronically passes hematuria, viral panel was negative he was screened for influenza a and B, COVID and RSV, d-dimer 517, he does not meet the age adjusted cut off, this is a positive test Chest x-ray: XR/XR chest 2V IMPRESSION: Findings consistent with multifocal pneumonia. Additionally, there are bilateral pleural effusions. Electronically signed by: Kevin Gonzalez DO 02/17/2024 02:06 PM EST RP EKG: AFib RVR, rate of 115, new T-wave inversions lateral leads, QTC 428 CT chest: CT/CT chest wo IV con IMPRESSION: 1. Moderate bilateral pleural effusions with adjacent atelectasis versus infiltrates in the lower lobes. 2. Bilateral upper lung airspace opacities, most dense within the right upper lobe and right middle lobe. Associated air bronchograms and ground-glass opacities. Findings are consistent with multifocal pneumonia. 3. Mild cardiomegaly, increased when compared to the prior examination. Fleischner guidelines were followed. Electronically signed by: Fish Batista MD 02/17/2024 03:12 PM EST RP Lab Data 02/17/24 12:14 02/17/24 12:14 Labs: Lab Results 02/17/24 02/17/24 Range/Units 12:14 12:24 WBC 10.0 (4.8-10.8) X10*3/uL RBC 5.21 D (4.60-5.80) X10*6/uL Hgb 15.4 D (14.0-18.0) g/dl Hct 47.0 D (42.0-52.0) % MCV 90.2 (80.0-98.0) fL MCH 29.6 (27.0-33.0) pg MCHC 32.8 (31.0-36.0) g/dl RDW 14.8 (11.0-16.0) % Plt Count 341 D (160-400) X10*3/uL MPV 10.9 (9.4-12.4) fL Immature Gran % (Auto) 1.2 H (0.0-0.4) % Neut % (Auto) 83.0 H (45-73) % Lymph % (Auto) 8.2 L (20-40) % [place] % (Auto) 7.1 (2-11) % Eos % (Auto) 0.4 (0-4) % Baso % (Auto) 0.1 (0-2) % Lymph # (Auto) 0.8 L (1.2-4.9) X10*3/uL [place] # (Auto) 0.7 (0.1-1.2) X10*3/uL Eos # (Auto) 0.0 (0.0-0.4) X10*3/uL Baso # (Auto) 0.0 (0.0-0.2) X10*3/uL Abs Immat Gran (auto) 0.12 H (0.00-0.03) X10*3/uL Absolute Neuts (auto) 8.3 (2.0-8.3) x10*3/uL Absolute Nucleated RBC 0.000 (0.0-0.012) X10*3/uL Nucleated RBC % (auto) 0.0 (0.0-0.2) /100WBC D-Dimer High Sensitivty 517 NG/ML Sodium 140 (135-145) mmol/L Potassium 4.4 (3.3-5.1) mmol/L Chloride 106 (96-108) mmol/L Carbon Dioxide 26 (22-29) mmol/L Anion Gap 12 (12-20) BUN 41 H (9-16) mg/dL Creatinine 1.77 H (0.5-1.4) mg/dL Estim Creat Clear Calc 26.7 Estimated GFR 36 Random Glucose 135 H (60-115) mg/dL Lactic Acid 2.0 (0.5-2.0) mmol/L Calcium 9.1 (8.4-10.2) mg/dL Magnesium 2.1 (1.6-2.6) mg/dL Total Bilirubin 1.0 (0.0-1.0) mg/dL AST 31 (5-37) U/L ALT 19 (0-40) U/L Alkaline Phosphatase 73 (39-117) U/L Total Protein 7.1 (6.5-8.0) g/dL Albumin 3.5 (3.5-5.0) g/dL Urine Color Yellow Urine Appearance Cloudy Urine pH 5.5 (5.0-9.0) Ur Specific [place] 1.015 (1.005-1.025) Urine Protein 30 (1+) H (Neg-Trace) mg/dL Urine Glucose (UA) Negative (Negative) mg/dL Urine Ketones Negative (Negative) mg/dL Urine Blood Large (3+) H (Negative) Urine Nitrite Negative (Negative) Ur Leukocyte Esterase Large (3+) H (Negative) Urine RBC 3-5 H (0-2) /HPF Urine WBC 11-20 (0-5) /HPF Ur Squamous Epith Cells 0-2 (0-2) /HPF Urine Bacteria 4+ (None Seen) Hyaline Casts 0-2 (0-2) /LPF Influenza Type A (PCR) NEGATIVE (Negative) Influenza Type B (PCR) NEGATIVE (Negative) RSV RNA Qual (PCR) NEGATIVE (Negative) SARS-CoV-2 RNA (RT-PCR) NEGATIVE (Negative) Discharge Plan Discharge Clinical Impression: Atrial fibrillation with RVR, Bilateral pleural effusion, Community acquired pneumonia Patient Disposition: Admitted As Inpatient
[2024-02-17 12:26] LABS: Appearance Urine Cloudy; Color Urine Yellow; Glucose Urine UA Negative (Negative); Leukocyte Esterase Urine Large (3+) (Negative); Nitrite Urine Negative (Negative); PH 5.5 (5.0-9.0); Specific Gravity - Urine 1.015 (1.005-1.025); UMIC TRIGGER UACC YES; Urine Blood Large (3+) (Negative); Urine Ketones Negative (Negative); Urine Protein 30 (1+) mg/dL (Neg-Trace)
[2024-02-17 12:35] LABS: MANUAL DIFF FLAG NO
[2024-02-17 12:38] LABS: Basophils Percent Auto 0.1 % (0-2); Eosinophils Percent Auto 0.4 % (0-4); Hemoglobin 15.4 g/dl (14.0-18.0); Imm Gran Abs Auto 0.12 X10*3/uL (0.00-0.03); Imm Gran Pct Auto 1.2 % (0.0-0.4); Lymphocytes Absolute Auto 0.8 X10*3/uL (1.2-4.9); Lymphocytes Percent Auto 8.2 % (20-40); Mean Corpuscular HGB Conc 32.8 g/dl (31.0-36.0); Mean Corpuscular Hemoglobin 29.6 pg (27.0-33.0); Mean Corpuscular Volume 90.2 fL (80.0-98.0); Mean Platelet Volume 10.9 fL (9.4-12.4); Monocytes Absolute Auto 0.7 X10*3/uL (0.1-1.2); Monocytes Percent Auto 7.1 % (2-11); Neutrophils Absolute Auto 8.3 x10*3/uL (2.0-8.3); Platelet Count 341 X10*3/uL (160-400); Red Blood Count 5.21 X10*6/uL (4.60-5.80); Red Cell Distribution Width 14.8 % (11.0-16.0)
[2024-02-17 12:39] LABS: Bacteria Urine 4+ (None Seen); Hyaline Casts Urine 0-2 /LPF (0-2); Squamous Epithelial Cell Urine 0-2 /HPF (0-2); UACC Culture Trigger YES
[2024-02-17 12:50] LABS: D Dimer High Sensitivity 517 NG/ML
[2024-02-17] MEDS: Acetaminophen 325 MG TABLET 975 MG PO (12:51)
[2024-02-17] MEDS: cefTRIAXone sodium 2 GM VIAL IVPUSH (12:51)
[2024-02-17 13:01] LABS: Alanine Aminotransferase 19 U/L (0-40); Albumin Level 3.5 g/dL (3.5-5.0); Alkaline Phosphatase 73 U/L (39-117); Anion Gap 12 (12-20); Aspartate Amino Transferase 31 U/L (5-37); Blood Urea Nitrogen 41 mg/dL (9-16); Calcium 9.1 mg/dL (8.4-10.2); Carbon Dioxide 26 mmol/L (22-29); Chloride 106 mmol/L (96-108); Creatinine Clr Calc Pharmacy 26.7; Estimated Glomerular Filt Rate 36; Glucose Random 135 mg/dL (60-115); Magnesium 2.1 mg/dL (1.6-2.6); Potassium 4.4 mmol/L (3.3-5.1); Sodium 140 mmol/L (135-145); Total Protein 7.1 g/dL (6.5-8.0)
[2024-02-17 13:20] LABS: Influenza A PCR NEGATIVE (Negative); Influenza B PCR NEGATIVE (Negative); Resp Syncy Virus RNA Qual PCR NEGATIVE (Negative); SARS COV2 PCR INHOUSE NEGATIVE (Negative)
[2024-02-17] MEDS: Doxycycline Hyclate 100 MG in 0.9 % Sodium Chloride 250 ML 166.67 MG IV (15:18)
[2024-02-17] MEDS: 0.9 % Sodium Chloride 500 ML IV (15:19)
--- NOTE | 2024-02-17 17:53 | PM.IMHP ---
History of Present Illness Date of Service: 02/17/24 Chief Complaint: Weakness, fall, Afib rvr An 89 years old male with PMH of PAF on eliquis, PAD, CHF, CKD, HTN among others who presents to the hospital from SNF with increase weakness and fall. The patient was unable to provide any meaningful history as he did not know that he is in the hospital but reported from SNF and EMS that he become increasingly weak and lethargic over the past week with decreased PO intaked and stability. No chest pain, palpitations, SOB, nausea, vomiting, diarrhea or urinary symptoms. Presented to ED with rapid Afib that was controlled. CXR showing bilateral multifocal pneumonia with no hypoxia. Will be admitted for IV antibiotics and close monitoring. Review of Systems Review of Systems: No fever, chills but reports weakness No chest pain, palpitation No shortness of breath or coughing No abdominal pain, nausea or vomiting No urinary symptoms No any rash or wounds PMFSH Medical History PAD (peripheral artery disease) Severe protein-calorie malnutrition Failure to thrive PAF (paroxysmal atrial fibrillation) Cardiomyopathy Candidal intertrigo Pressure sore Cellulitis Acute exacerbation of CHF (congestive heart failure) HTN (hypertension) HTN (hypertension) CHF (congestive heart failure) Cardiomyopathy, unspecified Persistent atrial fibrillation Atrial fibrillation Family History Father No problems noted. Mother No problems noted. Surgical History Hx of appendectomy Social History Household Members: Other Household Members Other:: has cousin that lives next door, and neighbor is retired nurse that helps Housing: Assisted Do you presently have visiting nurse or other home services: No Alcohol intake: former Comment: sitter at bedside Patient Tobacco Use Status: Never used Tobacco Smoked in Last 30 Days: No Use of substances other than those prescribed or required for medical reasons: No Advance Directives: Yes Advance Directives on File: Yes Advance Directives Date on File: 04/29/20 service: Yes Current occupational status: retired Current occupation: rt handed Meds Allergies Allergy/AdvReac Type Severity Reaction Status Date / Time streptomycin [Streptomycin] Allergy Mild UNKNOWN Verified 02/17/24 11:52 Penicillins Allergy Unknown unk Verified 02/17/24 11:52 Sulfa (Sulfonamide Allergy Unknown UNKNOWN Verified 02/17/24 11:52 Antibiotics) [SULFA (SULFONAMIDE ANTIBIOTICS)] Active Medications: Current Medications Acetaminophen (Acetaminophen 325 Mg Tablet) 650 mg PO Q6H PRN PRN Reason: Pain, Mild (Pain Scale 1-3), fever or headache Amiodarone HCl (Amiodarone Hcl 200 Mg Tablet) 200 mg PO DAILY [facility] Apixaban (Apixaban 2.5 Mg Tablet) 2.5 mg PO BID [facility] Benzonatate (Benzonatate 100 Mg Capsule) 100 mg PO TID PRN PRN Reason: Cough Calcium Carbonate (Calcium Carbonate 750 Mg Tab.Chew) 750 mg PO Q4H PRN PRN Reason: Heartburn Ceftriaxone Sodium (Ceftriaxone Sodium 1 Gm Vial) 1 gm IVPUSH Q24H [facility] Azithromycin 500 mg/ Sodium (Chloride) 250 mls @ 125 mls/hr IV Q24H [facility] Magnesium Hydroxide (Milk Of Magnesia 30 Ml Oral.Susp) 30 ml PO DAILY PRN PRN Reason: Constipation Melatonin (Melatonin 3 Mg Tablet) 6 mg PO BEDTIME PRN PRN Reason: Insomnia Metoprolol Tartrate (Metoprolol Tartrate 25 Mg Tablet) 25 mg PO BID [facility]; Protocol Ondansetron HCl (Ondansetron Hcl 4 Mg/2 Ml Vial) 4 mg IVPUSH Q8H PRN PRN Reason: Nausea and Vomiting Sodium Chloride (0.9 % Sodium Chloride Flush 3 Ml Syringe) 3 ml IVFLUSH QSHIFT [facility] Home Medications ?Medication ?Instructions ?Recorded ?Confirmed ?Last Taken ?Type metoprolol tartrate 25 mg tablet 25 mg PO BID 10/18/20 03/03/21 12/12/20 History acetaminophen 325 mg tablet 650 mg PO Q4H PRN Fever Or Pain 03/03/21 03/03/21 Unknown History bisacodyl 10 mg rectal suppository 10 mg [place] DAILY PRN Constipation 03/03/21 03/03/21 Unknown History (Dulcolax (bisacodyl)) docusate sodium 100 mg capsule 100 mg PO DAILY 03/03/21 03/03/21 Unknown History hydrocodone 5 mg-acetaminophen 325 1 tab PO Q6H PRN Pain (Scale Score 03/03/21 03/03/21 Unknown History mg tablet 7-10) polyethylene glycol 3350 17 gram 17 g PO DAILY PRN Constipation 03/03/21 03/03/21 Unknown History oral powder packet (Miralax) sennosides 8.6 mg tablet (senna) 17.2 mg PO BEDTIME 03/03/21 03/03/21 Unknown History potassium chloride 20 mEq 20 meq PO DAILY 03/24/21 Unknown History tablet,extended release lorazepam 0.5 mg tablet 0.5 mg PO BID 02/17/24 Unknown History Physical Exam Vital Signs and Narrative: Vital Signs: Last Vital Signs Temp 99.3 F 02/17/24 12:26 Pulse 97 02/17/24 17:51 Resp 16 02/17/24 17:51 BP 111/72 02/17/24 17:51 Pulse Ox 96 02/17/24 17:51 O2 Del Method Room Air 02/17/24 17:51 BMI result Body Mass Index 21.1 Const: Other: Constitutional : Awake, interactive, not in distress Neck : Normal inspection, Supple Cardiovascular : RRR, no JVP, no lower extremity edema Respiratory : good bilateral air entry, basal fine crackles bilaterally Gastrointestinal: soft, lax, Normal bowel sounds, Non tender Skin : Warm, Dry Neurological : Alert & disoriented to time and place, No focal deficit Results Labs 02/17/24 12:14 02/17/24 12:14 Labs: Laboratory Results - last 24 hr 02/17/24 02/17/24 12:14 12:24 MCV 90.2 MCH 29.6 MCHC 32.8 RDW 14.8 Plt Count 341 D MPV 10.9 Immature Gran % (Auto) 1.2 H Neut % (Auto) 83.0 H Lymph % (Auto) 8.2 L [place] % (Auto) 7.1 Eos % (Auto) 0.4 Baso % (Auto) 0.1 Lymph # (Auto) 0.8 L [place] # (Auto) 0.7 Eos # (Auto) 0.0 Baso # (Auto) 0.0 Abs Immat Gran (auto) 0.12 H Absolute Neuts (auto) 8.3 Absolute Nucleated RBC 0.000 Nucleated RBC % (auto) 0.0 D-Dimer High Sensitivty 517 Anion Gap 12 Estim Creat Clear Calc 26.7 Estimated GFR 36 Random Glucose 135 H Lactic Acid 2.0 Calcium 9.1 Magnesium 2.1 Total Bilirubin 1.0 AST 31 ALT 19 Alkaline Phosphatase 73 Total Protein 7.1 Albumin 3.5 Urine Color Yellow Urine Appearance Cloudy Urine pH 5.5 Ur Specific [place] 1.015 Urine Protein 30 (1+) H Urine Glucose (UA) Negative Urine Ketones Negative Urine Blood Large (3+) H Urine Nitrite Negative Ur Leukocyte Esterase Large (3+) H Urine RBC 3-5 H Urine WBC 11-20 Ur Squamous Epith Cells 0-2 Urine Bacteria 4+ Hyaline Casts 0-2 Influenza Type A (PCR) NEGATIVE Influenza Type B (PCR) NEGATIVE RSV RNA Qual (PCR) NEGATIVE SARS-CoV-2 RNA (RT-PCR) NEGATIVE Imaging Radiologist's Impressions: Impressions Chest X-Ray 02/17/24 13:00 IMPRESSION: Findings consistent with multifocal pneumonia. Additionally, there are bilateral pleural effusions. Electronically signed by: Kevin Gonzalez DO 02/17/2024 02:06 PM EST RP Chest CT 02/17/24 13:31 IMPRESSION: 1. Moderate bilateral pleural effusions with adjacent atelectasis versus infiltrates in the lower lobes. 2. Bilateral upper lung airspace opacities, most dense within the right upper lobe and right middle lobe. Associated air bronchograms and ground-glass opacities. Findings are consistent with multifocal pneumonia. 3. Mild cardiomegaly, increased when compared to the prior examination. Fleischner guidelines were followed. Electronically signed by: Fish Batista MD 02/17/2024 03:12 PM EST RP Assessment and Plan (1) Community acquired pneumonia: Status: Acute (2) Bilateral pleural effusion: Status: Acute (3) UTI (urinary tract infection): Status: Acute Plan An 89 years old male with PMH of PAF on eliquis, PAD, CHF, CKD, HTN among others who presents to the hospital from SNF with increase weakness and fall. Community aquired pneumonia CURB65 score of 3 , requiring inpatient treatment Azithromycin and Ceftriaxone Cough medicine pending cultures UTI UA looks infected on Ceftriaxone Pending culture pleural effusion likely related to hx of CHF and pneumonia not on Lasix anymore follow BMP before starting lasix Physical deconditioning PT eval encourage PO intake PAF continue Eliquis and Metoprolol, Amiodarone Decrease Eliquis to 2.5bid given his age and weight DVT PPx Eliquis The patient will likely need 2 overnight hospital stay for treatment of multifocal pneumonia ppending blood cultures Quality Stroke Does the patient have a stroke diagnosis?: No VTE Prior VTE?: No VTE Risk Level:: Medical - moderate - high VTE Device Contraindication: Treatment Not Indicated VTE Drug Contraindication: N/A - Med Ordered
--- NOTE | 2024-02-17 18:49 | PHA.MEDREC ---
Addendum entered by Tereso Damico [facility] 02/17/24 18:59: Med rec reviewed Original Note: Pharmacy Consult ? Medication Reconciliation Pharmacy has completed the medication reconciliation. [facility] [address] Only thing not on facility list is Lorazepam 0.5mg tabs, in claims that was last filled 01/23 for 30 days from [facility].
--- NOTE | 2024-02-17 19:39 | MHC.EDTECH ---
Patient asking for dinner tray. No trays available. This tech provided patient with sandwich, applesauce, cheesestick, juice and wseley crackers. Okay per RN Janet Sen. All patient needs currently met.
[2024-02-17] MEDS: Apixaban 2.5 MG TABLET PO (21:44)
[2024-02-17] MEDS: 0.9 % Sodium Chloride Flush 3 ML SYRINGE IVFLUSH (21:44)
[2024-02-17] MEDS: Metoprolol Tartrate 25 MG TABLET PO (21:44)
[2024-02-17] MEDS: Benzonatate 100 MG CAPSULE PO (23:41)
[2024-02-18] VITALS (9 sets, daily range): BP systolic 88–133; BP diastolic 51–80; PULSE 95–128; RESP 16–28; TEMP 36.2–36.6; O2SAT 89–96
--- NOTE | 2024-02-18 | ECG_ITS ---
Test Reason : Dyspnea Blood Pressure : / mmHG Vent. Rate : 103 BPM Atrial Rate : 000 BPM P-R Int : 000 ms QRS Dur : 106 ms QT Int : 338 ms P-R-T Axes : 000 073 209 degrees QTc Int : 442 ms Atrial fibrillation with rapid ventricular response with premature ventricular or aberrantly conducted complexes Minimal voltage criteria for LVH, may be normal variant ( [place] product ) ST & T wave abnormality, consider lateral ischemia Abnormal ECG When compared with ECG of 17-FEB-2024 12:05, No significant change was found Referred By: Don Iverson Electronically Signed By:Cortes Adhikari
[2024-02-18] MEDS: Acetaminophen 325 MG TABLET 650 MG PO ×2 (04:07→21:47)
[2024-02-18 07:22] LABS: MANUAL DIFF FLAG NO
[2024-02-18 07:38] LABS: Basophils Percent Auto 0.1 % (0-2); Eosinophils Percent Auto 0.4 % (0-4); Hematocrit 43.4 % (42.0-52.0); Hemoglobin 13.9 g/dl (14.0-18.0); Imm Gran Abs Auto 0.08 X10*3/uL (0.00-0.03); Imm Gran Pct Auto 0.8 % (0.0-0.4); Lymphocytes Absolute Auto 0.6 X10*3/uL (1.2-4.9); Lymphocytes Percent Auto 5.7 % (20-40); Mean Corpuscular Hemoglobin 28.8 pg (27.0-33.0); Mean Corpuscular Volume 89.9 fL (80.0-98.0); Mean Platelet Volume 11.2 fL (9.4-12.4); Monocytes Absolute Auto 0.5 X10*3/uL (0.1-1.2); Monocytes Percent Auto 5.5 % (2-11); Neutrophils Absolute Auto 8.7 x10*3/uL (2.0-8.3); Neutrophils Percent Auto 87.5 % (45-73); Platelet Count 281 X10*3/uL (160-400); Red Blood Count 4.83 X10*6/uL (4.60-5.80); Red Cell Distribution Width 14.8 % (11.0-16.0); White Blood Count 9.9 X10*3/uL (4.8-10.8)
[2024-02-18 08:10] LABS: Anion Gap 15 (12-20); Blood Urea Nitrogen 38 mg/dL (9-16); Calcium 8.6 mg/dL (8.4-10.2); Carbon Dioxide 21 mmol/L (22-29); Chloride 110 mmol/L (96-108); Creatinine Clr Calc Pharmacy 29.2; Estimated Glomerular Filt Rate 40; Glucose Random 121 mg/dL (60-115); Sodium 142 mmol/L (135-145)
[2024-02-18] MEDS: Apixaban 2.5 MG TABLET PO ×2 (09:06→21:00)
[2024-02-18] MEDS: Amiodarone HCL 200 MG TABLET PO (09:06)
[2024-02-18] MEDS: 0.9 % Sodium Chloride Flush 3 ML SYRINGE IVFLUSH ×3 (09:06→21:01)
[2024-02-18] MEDS: Metoprolol Tartrate 25 MG TABLET PO ×2 (09:06→21:00)
--- NOTE | 2024-02-18 11:19 | HO.PM.IMPN ---
Subjective Subjective Date of Service: 02/18/24 Interval History: seen and evaluated feels better overall cultures pending Review of Systems No fever, chills but reports weakness No chest pain, palpitation No shortness of breath or coughing No abdominal pain, nausea or vomiting No urinary symptoms No any rash or wounds Physical Exam Vital Signs: Vital Signs: Last Vital Signs Temp 97.1 F 02/18/24 07:51 Pulse 100 02/18/24 07:51 Resp 18 02/18/24 07:51 BP 130/74 02/18/24 07:51 Pulse Ox 94 02/18/24 07:51 O2 Del Method Nasal Cannula 02/18/24 07:51 O2 Flow Rate 2 02/18/24 07:51 BMI result Body Mass Index 21.1 Const: Other: Constitutional : Awake, interactive, not in distress Neck : Normal inspection, Supple Cardiovascular : RRR, no JVP, no lower extremity edema Respiratory : good bilateral air entry, basal fine crackles bilaterally Gastrointestinal: soft, lax, Normal bowel sounds, Non tender Skin : Warm, Dry Neurological : Alert & disoriented to time and place, No focal deficit Objective Data Active Medications Acetaminophen (Acetaminophen 325 Mg Tablet) 650 mg PO Q6H PRN PRN Reason: Pain, Mild (Pain Scale 1-3), fever or headache Last Admin: 02/18/24 04:07 Dose: 650 mg Documented By: BRENDEN Amiodarone HCl (Amiodarone Hcl 200 Mg Tablet) 200 mg PO DAILY [facility] Last Admin: 02/18/24 09:06 Dose: 200 mg Documented By: BROMimi Apixaban (Apixaban 2.5 Mg Tablet) 2.5 mg PO BID [facility] Last Admin: 02/18/24 09:06 Dose: 2.5 mg Documented By: DOBROB Benzonatate (Benzonatate 100 Mg Capsule) 100 mg PO TID PRN PRN Reason: Cough Last Admin: 02/17/24 23:41 Dose: 100 mg Documented By: BRENDEN Calcium Carbonate (Calcium Carbonate 750 Mg Tab.Chew) 750 mg PO Q4H PRN PRN Reason: Heartburn Ceftriaxone Sodium (Ceftriaxone Sodium 1 Gm Vial) 1 gm IVPUSH Q24H [facility] Azithromycin 500 mg/ Sodium (Chloride) 250 mls @ 125 mls/hr IV Q24H [facility] Magnesium Hydroxide (Milk Of Magnesia 30 Ml Oral.Susp) 30 ml PO DAILY PRN PRN Reason: Constipation Melatonin (Melatonin 3 Mg Tablet) 6 mg PO BEDTIME PRN PRN Reason: Insomnia Metoprolol Tartrate (Metoprolol Tartrate 25 Mg Tablet) 25 mg PO BID [facility]; Protocol Last Admin: 02/18/24 09:06 Dose: 25 mg Documented By: YOSHI Ondansetron HCl (Ondansetron Hcl 4 Mg/2 Ml Vial) 4 mg IVPUSH Q8H PRN PRN Reason: Nausea and Vomiting Sodium Chloride (0.9 % Sodium Chloride Flush 3 Ml Syringe) 3 ml IVFLUSH QSHIFT [facility] Last Admin: 02/18/24 09:06 Dose: 3 ml Documented By: YOSHI Labs 02/18/24 06:29 02/18/24 06:29 Labs: Laboratory Results - last 24 hr 02/17/24 02/17/24 02/18/24 12:14 12:24 06:29 MCV 90.2 89.9 MCH 29.6 28.8 MCHC 32.8 32.0 RDW 14.8 14.8 Plt Count 341 D 281 MPV 10.9 11.2 Immature Gran % (Auto) 1.2 H 0.8 H Neut % (Auto) 83.0 H 87.5 H Lymph % (Auto) 8.2 L 5.7 L [place] % (Auto) 7.1 5.5 Eos % (Auto) 0.4 0.4 Baso % (Auto) 0.1 0.1 Lymph # (Auto) 0.8 L 0.6 L [place] # (Auto) 0.7 0.5 Eos # (Auto) 0.0 0.0 Baso # (Auto) 0.0 0.0 Abs Immat Gran (auto) 0.12 H 0.08 H Absolute Neuts (auto) 8.3 8.7 H Absolute Nucleated RBC 0.000 0.000 Nucleated RBC % (auto) 0.0 0.0 D-Dimer High Sensitivty 517 Anion Gap 12 15 Estim Creat Clear Calc 26.7 29.2 Estimated GFR 36 40 Random Glucose 135 H 121 H Lactic Acid 2.0 Calcium 9.1 8.6 Magnesium 2.1 Total Bilirubin 1.0 AST 31 ALT 19 Alkaline Phosphatase 73 Total Protein 7.1 Albumin 3.5 Urine Color Yellow Urine Appearance Cloudy Urine pH 5.5 Ur Specific [place] 1.015 Urine Protein 30 (1+) H Urine Glucose (UA) Negative Urine Ketones Negative Urine Blood Large (3+) H Urine Nitrite Negative Ur Leukocyte Esterase Large (3+) H Urine RBC 3-5 H Urine WBC 11-20 Ur Squamous Epith Cells 0-2 Urine Bacteria 4+ Hyaline Casts 0-2 Influenza Type A (PCR) NEGATIVE Influenza Type B (PCR) NEGATIVE RSV RNA Qual (PCR) NEGATIVE SARS-CoV-2 RNA (RT-PCR) NEGATIVE Microbiology Microbiology Results: Microbiology 02/17/24 Unknown Urine Culture - Final Urine clean catch - Clean Catch Midstream Assessment and Plan (1) Community acquired pneumonia: Status: Acute (2) Bilateral pleural effusion: Status: Acute (3) PAD (peripheral artery disease): Status: Acute (4) UTI (urinary tract infection): Status: Acute Plan An 89 years old male with PMH of PAF on eliquis, PAD, CHF, CKD, HTN among others who presents to the hospital from SNF with increase weakness and fall. Community aquired pneumonia CURB65 score of 3 , requiring inpatient treatment continue IV Azithromycin and Ceftriaxone Cough medicine pending cultures UTI on Ceftriaxone Pending culture pleural effusion likely related to hx of CHF and pneumonia not on Lasix anymore start IV Lasix 20 mg daily Physical deconditioning PT eval encourage PO intake PAF continue Eliquis and Metoprolol, Amiodarone Decrease Eliquis to 2.5bid given his age and weight DVT PPx Eliquis The patient will likely need overnight hospital stay for treatment of multifocal pneumonia ppending blood cultures Quality Stroke Does the patient have a stroke diagnosis?: No VTE Prior VTE?: No VTE Risk Level:: Medical - moderate - high VTE Device Contraindication: Treatment Not Indicated VTE Drug Contraindication: N/A - Med Ordered
[2024-02-18] MEDS: Furosemide 20 MG/2 ML VIAL IVPUSH (12:05)
[2024-02-18] MEDS: Azithromycin 500 MG in 0.9 % Sodium Chloride 250 ML 125 MG IV (12:07)
[2024-02-18] MEDS: cefTRIAXone sodium 1 GM VIAL IVPUSH (12:07)
--- NOTE | 2024-02-18 12:55 | MHC.CM.PN ---
PT IS A LT RESIDENT OF [facility] MESSAGE LEFT FOR HCP AGENTS, BASIM [phone] REQUESTING A RETURN CALL [facility]
[2024-02-18] MEDS: 0.9 % Sodium Chloride 1,000 ML 999 ML IV (15:27)
[2024-02-18 15:28] LABS: Glucose, Whole Blood 157 mg/dL (60-115)
--- NOTE | 2024-02-18 15:58 | PC.NURSE ---
Provider notification sent to MD for change in patient's status, upon assessment patient appeared in distress, dyspneic, O2 on 2L 80%, BP 88/58, patient c/o sob and chest heaviness. O2 flow increased to 4L and NC changed to oxymask. Dr. Iverson at bedside, O2 5L oxymask sats 92-96%, NS bouls ordered and started, BP recheck 104/51, POC 157. Per MD EKG was done, pending chest xray and blood work. Patient placed on continuous heart monitor. BP recheck 112/61, RR 20. Will continue to monitor
[2024-02-18 17:05] LABS: Troponin-I High Sensitivity 25.4 ng/L (<3.5-35.0)
[2024-02-18 20:32] LABS: Troponin-I High Sensitivity 20.6 ng/L (<3.5-35.0)
[2024-02-19] VITALS (8 sets, daily range): BP systolic 102–132; BP diastolic 69–94; PULSE 94–126; RESP 15–20; TEMP 36–36.6; O2SAT 89–94
[2024-02-19 07:03] LABS: Hematocrit 48.4 % (42.0-52.0); Hemoglobin 15.3 g/dl (14.0-18.0); Mean Corpuscular HGB Conc 31.6 g/dl (31.0-36.0); Mean Corpuscular Hemoglobin 28.8 pg (27.0-33.0); Mean Corpuscular Volume 91.1 fL (80.0-98.0); Mean Platelet Volume 10.8 fL (9.4-12.4); Platelet Count 267 X10*3/uL (160-400); Red Blood Count 5.31 X10*6/uL (4.60-5.80); White Blood Count 13.7 X10*3/uL (4.8-10.8)
[2024-02-19 07:20] LABS: Anion Gap 20 (12-20); Blood Urea Nitrogen 40 mg/dL (9-16); Calcium 9.1 mg/dL (8.4-10.2); Carbon Dioxide 16 mmol/L (22-29); Chloride 111 mmol/L (96-108); Creatinine Clr Calc Pharmacy 25.9; Estimated Glomerular Filt Rate 35; Glucose Random 122 mg/dL (60-115); Potassium 4.6 mmol/L (3.3-5.1); Sodium 142 mmol/L (135-145)
[2024-02-19 07:29] LABS: B Type Natriuretic Peptide 1132 pg/mL (<100)
[2024-02-19] MEDS: 0.9 % Sodium Chloride Flush 3 ML SYRINGE IVFLUSH ×2 (08:10→23:20)
[2024-02-19] MEDS: Metoprolol Tartrate 25 MG TABLET PO ×2 (08:10→20:31)
[2024-02-19] MEDS: Furosemide 20 MG/2 ML VIAL IVPUSH (08:10)
[2024-02-19] MEDS: Apixaban 2.5 MG TABLET PO ×2 (08:10→20:29)
[2024-02-19] MEDS: Amiodarone HCL 200 MG TABLET PO (08:10)
--- NOTE | 2024-02-19 11:08 | HO.PM.IMPN ---
Subjective Subjective Date of Service: 02/19/24 Interval History: seen and evaluated feels better overall On O2 supplement, BNP went up along Cr rate better controlled cultures negative Review of Systems Review of Systems: Yes all other systems are reviewed and are negative Physical Exam Vital Signs: Vital Signs: Last Vital Signs Temp 96.8 F 02/19/24 07:54 Pulse 94 02/19/24 07:54 Resp 18 02/19/24 07:54 BP 132/94 H 02/19/24 07:54 Pulse Ox 94 02/19/24 07:54 O2 Del Method Oxymask 02/19/24 07:54 O2 Flow Rate 5 02/19/24 07:54 BMI result Body Mass Index 21.1 Const: Other: Constitutional : Awake, interactive, not in distress Neck : Normal inspection, Supple Cardiovascular : RRR, no JVP, no lower extremity edema Respiratory : good bilateral air entry, basal fine crackles bilaterally Gastrointestinal: soft, lax, Normal bowel sounds, Non tender Skin : Warm, Dry Neurological : Alert & disoriented to time and place, No focal deficit Objective Data Active Medications Acetaminophen (Acetaminophen 325 Mg Tablet) 650 mg PO Q6H PRN PRN Reason: Pain, Mild (Pain Scale 1-3), fever or headache Last Admin: 02/18/24 21:47 Dose: 650 mg Documented By: BRENDEN Amiodarone HCl (Amiodarone Hcl 200 Mg Tablet) 200 mg PO DAILY [facility] [place] Last Admin: 02/19/24 08:10 Dose: 200 mg Documented By: TIMMY Apixaban (Apixaban 2.5 Mg Tablet) 2.5 mg PO BID [facility] [place] Last Admin: 02/19/24 08:10 Dose: 2.5 mg Documented By: TIMMY Benzonatate (Benzonatate 100 Mg Capsule) 100 mg PO TID PRN PRN Reason: Cough Last Admin: 02/17/24 23:41 Dose: 100 mg Documented By: BRENDEN Calcium Carbonate (Calcium Carbonate 750 Mg Tab.Chew) 750 mg PO Q4H PRN PRN Reason: Heartburn Ceftriaxone Sodium (Ceftriaxone Sodium 1 Gm Vial) 1 gm IVPUSH Q24H [facility] [place] Last Admin: 02/18/24 12:07 Dose: 1 gm Documented By: BROMimi Furosemide (Furosemide 20 Mg/2 Ml Vial) 20 mg IVPUSH DAILY [facility] [place]; Protocol Last Admin: 02/19/24 08:10 Dose: 20 mg Documented By: TIMMY Azithromycin 500 mg/ Sodium (Chloride) 250 mls @ 125 mls/hr IV Q24H [facility] [place] Last Infusion: 02/18/24 15:28 Dose: Infused Documented By: YOSHI Magnesium Hydroxide (Milk Of Magnesia 30 Ml Oral.Susp) 30 ml PO DAILY PRN PRN Reason: Constipation Melatonin (Melatonin 3 Mg Tablet) 6 mg PO BEDTIME PRN PRN Reason: Insomnia Metoprolol Tartrate (Metoprolol Tartrate 25 Mg Tablet) 25 mg PO BID [facility] [place]; Protocol Last Admin: 02/19/24 08:10 Dose: 25 mg Documented By: TIMMY Ondansetron HCl (Ondansetron Hcl 4 Mg/2 Ml Vial) 4 mg IVPUSH Q8H PRN PRN Reason: Nausea and Vomiting Sodium Chloride (0.9 % Sodium Chloride Flush 3 Ml Syringe) 3 ml IVFLUSH QSHIFT [facility] [place] Last Admin: 02/19/24 08:10 Dose: 3 ml Documented By: TIMMY Labs 02/19/24 06:38 02/19/24 06:38 Labs: Laboratory Results - last 24 hr 02/18/24 02/18/24 02/18/24 15:07 15:50 19:01 MCV MCH MCHC RDW Plt Count MPV Absolute Nucleated RBC Nucleated RBC % (auto) Anion Gap Estim Creat Clear Calc Estimated GFR POC Glucose 157 H Random Glucose Calcium Magnesium 2.0 Troponin I High Sens 25.4 20.6 B-Natriuretic Peptide 02/19/24 06:38 MCV 91.1 MCH 28.8 MCHC 31.6 RDW 15.0 Plt Count 267 MPV 10.8 Absolute Nucleated RBC 0.000 Nucleated RBC % (auto) 0.0 Anion Gap 20 Estim Creat Clear Calc 25.9 Estimated GFR 35 POC Glucose Random Glucose 122 H Calcium 9.1 Magnesium Troponin I High Sens B-Natriuretic Peptide 1132 H Microbiology Microbiology Results: Microbiology 02/17/24 12:37 Blood Culture - Preliminary Blood - Venous No growth after 24 hours. 02/17/24 12:24 Blood Culture - Preliminary Blood - Venous No growth after 24 hours. 02/17/24 Unknown Urine Culture - Final Urine clean catch - Clean Catch Midstream Assessment and Plan (1) LAUREN (acute kidney injury): Status: Acute (2) Community acquired pneumonia: Status: Acute (3) Bilateral pleural effusion: Status: Acute (4) Pneumonia: Status: Acute (5) Acute on chronic systolic (congestive) heart failure: Status: Acute (6) UTI (urinary tract infection): Status: Acute Plan An 89 years old male with PMH of PAF on eliquis, PAD, CHF, CKD, HTN among others who presents to the hospital from SNF with increase weakness and fall. Community aquired pneumonia complicated with acute CHF exacerbation and hypoxia O2 sropped to mid 80s repeated CXR showing Edema continue IV Azithromycin and Ceftriaxone IV lasix Cough medicine pending cultures UTI on Ceftriaxone Pending culture pleural effusion likely related to hx of CHF and pneumonia not on Lasix anymore start IV Lasix 20 mg daily LAUREN on CKD3 with metabolic acidosis on IV lasix Give sodium bicarb Nephrology eval Physical deconditioning PT eval encourage PO intake PAF rate better controlled continue Eliquis and Metoprolol, Amiodarone Decrease Eliquis to 2.5 bid given his age and weight DVT PPx Eliquis The patient will likely need overnight hospital stay for treatment of multifocal pneumonia ppending blood cultures Quality Stroke Does the patient have a stroke diagnosis?: No VTE Prior VTE?: No VTE Risk Level:: Medical - moderate - high VTE Device Contraindication: Treatment Not Indicated VTE Drug Contraindication: N/A - Med Ordered
[2024-02-19] MEDS: Sodium Bicarbonate 650 MG TABLET PO ×3 (12:00→20:30)
[2024-02-19] MEDS: cefTRIAXone sodium 1 GM VIAL IVPUSH (13:00)
[2024-02-19] MEDS: Azithromycin 500 MG in 0.9 % Sodium Chloride 250 ML 125 MG IV (13:56)
[2024-02-20] VITALS (7 sets, daily range): BP systolic 107–142; BP diastolic 67–99; PULSE 90–112; RESP 12–24; TEMP 36.1–36.7; O2SAT 92–95
--- NOTE | 2024-02-20 07:00 | CA_ITS ---
Transthoracic Echocardiogram Patient (Last, First, Middle): Radhames Daugherty M Gender: Male Date of : 1935 Age: 89 Procedure Date: 02/20/2024 Procedure Type: Transthoracic Echocardiogram Location: S3E Height: 177.8 cm Weight: 66.68 kg BSA: 1.83 m2 Heart Rate: bpm BP: 112 / 73 mmHg Ambulance Paramedic: Referring MD: Don Iverson MD Dynamometer Tuner: Kareem Amaya MD Symptoms: CHF exacerbation Study Quality: Adequate w Definity ECG Rhythm: Atrial Fibrillation Conclusions: - 1. Mildly dilated left ventricle with severely reduced LV ejection fraction 20-25% 2. Mildly dilated right ventricle with moderately reduced systolic function 3. Severe biatrial enlargement 4. Cvor-iy-ckabacbl aortic stenosis and mild aortic regurgitation 5. Moderate to severe mitral regurgitation 6. Upper limits of normal RV systolic pressure Findings Procedure Information Contrast agent, definity, is being given per protocol without apparent complications. Left Ventricle Mildly increased left ventricular cavity size. There is normal left ventricular wall thickness. The left ventricular systolic function is severely decreased. The visually estimated ejection fraction is between 20 25%. Diastolic function is indeterminate on the basis of available data. Right Ventricle Mildly increased right ventricular cavity size. There is moderately decreased right ventricular systolic function. Atria The left atrium is severely dilated. There is no evidence of interatrial shunt. The right atrium is severely dilated. Aortic Valve The aortic valve was not well visualized. There is moderate calcification of the aortic valve. There is mild to moderate aortic valve stenosis. The peak aortic gradient is 13 mmHg.The mean gradient is 7 mmHg. The aortic valve area is 1.33 cm2. There is mild aortic valve regurgitation. Mitral Valve There is mild anterior and posterior mitral leaflet thickening. There is moderate to severe mitral valve regurgitation. There is no mitral valve stenosis. Pulmonic Valve The pulmonic valve is likely normal. Tricuspid Valve Likely normal tricuspid valve structure and function. There is mild to moderate tricuspid valve regurgitation. The right ventricular systolic pressure is 36 mmHg. Normal right atrial pressure. There is no evidence of pulmonary hypertension. Great Vessels All visible segments of the aorta are normal in size. The pulmonary artery was not well visualized. There is no dilatation of the ascending aorta measuring 3.30 cm. Venous The inferior vena cava is normal in size and collapses greater than 50% with inspiration. Pericardium/Pleural There is no evidence of pericardial effusion. There is a moderate left sided pleural effusion. Measurements 2D Linear Measurements IVSd: 1.02 0.6-0.9/0.6-1.0 cm LVIDd: 6.01 3.9-5.3/4.2-5.9 cm LVIDd Index: 3.28 2.4-3.2/2.2-3.1 cm/m2 LVIDs: 5.30 2.0-3.6 cm LVPWd: 1.02 0.7-1.1 cm Ao Root: 3.50 2.1-3.5 cm LA Diam: 4.10 2.7-3.8/3.0-4.0 cm LAIDs Index: 2.24 1.5-2.3 cm/m2 LV Mass: 316.76 67-162/88-224 g LV Mass Index: 173.09 43-95/49-115 g/m2 LVOT Diam: 2.20 3.0+(-)1.3 cm 2D Systolic Function EF 4C: 16.40 >55% EF 2C: 34.00 >55% EF BiP: 25.90 >55% Mitral Valve MV Pk E: 0.87 MV Decel Time: 169.00 E'Lateral: 14.00 E'Medial: 6.31 E/E' Med: 13.90 E/E' Lat: 6.20 PHT: 49.00 MVA PHT: 4.49 Decel Beckham: 5.18 Aortic Valve AoV Pk Trae: 1.78 AoV Mn Trae: 1.25 AoV VTI: 0.29 AoV Pk Grad: 13.00 Aov Mn Grad: 7.00 VIVIANE Cont.VTI: 1.33 LVOT LVOT Pk Trae: 0.54 LVOT Mn Trae: 0.38 LVOT VTI: 0.10 LVOT Pk Grad: 1.00 LVOT Mn Grad: 1.00 LVOT Diam: 2.20 LVOT Area: 3.80 Diastolic Function MV Pk E: 0.87 E'Medial: 6.31 E/E' Med: 13.90 E' Laterial: 14.00 E/E' Lat: 6.20 Right Ventricle TAPSE (mm): 12.00 TVS' Trae: 8.00 Tricuspid Valve TR Pk Trae: 2.88 TR Pk Grad: 33.00 RA Press: 3.00 RVSP: 36.00 Great Vessels Aorta Ao Root-2D: 3.50 2.0-3.7 cm Ao Asc: 3.30 2.1-3.4 cm Pulmonary Valve PV Pk Trae: 0.73 Peak PV Grad: 2.00 Updated in Other Vendor System with Status of Final Kareem Amaya MD electronically signed on 02/20/2024 4:03:03 PM with status of Final
[2024-02-20 07:28] LABS: Hematocrit 47.6 % (42.0-52.0); Hemoglobin 14.9 g/dl (14.0-18.0); Mean Corpuscular HGB Conc 31.3 g/dl (31.0-36.0); Mean Corpuscular Hemoglobin 28.8 pg (27.0-33.0); Mean Corpuscular Volume 91.9 fL (80.0-98.0); Mean Platelet Volume 11.4 fL (9.4-12.4); Platelet Count 254 X10*3/uL (160-400); Red Blood Count 5.18 X10*6/uL (4.60-5.80); White Blood Count 13.7 X10*3/uL (4.8-10.8)
[2024-02-20 07:31] LABS: B Type Natriuretic Peptide 1002 pg/mL (<100)
[2024-02-20 07:40] LABS: Anion Gap 18 (12-20); Blood Urea Nitrogen 42 mg/dL (9-16); Calcium 9.1 mg/dL (8.4-10.2); Carbon Dioxide 22 mmol/L (22-29); Chloride 108 mmol/L (96-108); Creatinine Clr Calc Pharmacy 21.6; Estimated Glomerular Filt Rate 28; Glucose Random 123 mg/dL (60-115); Potassium 4.6 mmol/L (3.3-5.1); Sodium 143 mmol/L (135-145)
--- NOTE | 2024-02-20 08:31 | PC.NURSE ---
BUN 42 Cr-2.19 ,patient c/o feeling weak and tired,Dr. Iverson notified
--- NOTE | 2024-02-20 09:05 | PM.CNNEP ---
History of Present Illness Reason for Consult Consult date: 02/20/24 Chief Complaint Chief complaint: Weakness,cough History of Present Illness Narrative: 89 y/o with a medical history of paroxysmal afib, PAD, CHF, HTN, CKD pt reports he does not see a kidney doctor as outpatient. presented here 02/16 with increased weakness, had fallen. Being treated for PNA, UTI adn CHF exacerbation Nephrology consulted for LAUREN last baseline creatinine on file from 03/2021 was 1.39 creatinine 02/16 was 1.77, 02/17 was 1.62, . was 1.82, 02/19 2.19 UA +1 protein, +3 blood (3-5 RBCs), 3+leukocyte esterace no renal imaging this admission was receiving furosemide 20mg IVP daily, this is on hold today one episode of hypoperfusion on 02/17 BP 88/58 UOP 1075mL/last 24 horus reports fatigue and malaise prior to admission, poor PO intake denies other changes or new medications prior to admission states he does not see a kidney doctor reports fatigue and malaise ongoing, though reports breathing is feeling comfortable right now reports he is urinating without difficulty (using urinal), denies pain or difficulty passing urine denies other new symptoms, concerns Review of Systems Constitutional: Reports fatigue, Reports lethargy, Reports malaise and Reports weakness Cardiovascular: Denies chest pain, Reports leg edema (reports leg swelling chronic at baseline ), Denies lightheadedness and Denies dyspnea Respiratory: Denies dyspnea Gastrointestinal: Denies abdominal pain, Denies constipation, Denies diarrhea, Denies nausea and Denies vomiting Genitourinary: Denies hematuria, Denies oliguria, Denies difficulty urinating, Denies dysuria, Denies flank pain and Reports urinary incontinence Musculoskeletal: Denies muscle cramps Skin/Breast: Denies rash Reports weakness Endocrine: Reports fatigue PMFSH Past Medical History Medical History (Updated 02/19/24 @ 11:19 by Don Iverson MD) LAUREN (acute kidney injury) PAD (peripheral artery disease) Severe protein-calorie malnutrition Failure to thrive PAF (paroxysmal atrial fibrillation) Cardiomyopathy Candidal intertrigo Pressure sore Cellulitis Acute exacerbation of CHF (congestive heart failure) HTN (hypertension) HTN (hypertension) CHF (congestive heart failure) Cardiomyopathy, unspecified Persistent atrial fibrillation Atrial fibrillation Family History Family History Father No problems noted. Mother No problems noted. Surgical History Surgical History Hx of appendectomy Social History Social History Household Members: None Household Members Other:: has cousin that lives next door, and neighbor is retired nurse that helps Housing: [facility] Do you presently have visiting nurse or other home services: No Alcohol intake: former Comment: sitter at bedside Patient Tobacco Use Status: Never used Tobacco Advance Directives Date on File: 04/29/20 service: Yes Current occupational status: retired Current occupation: rt handed Meds Allergies Allergy/AdvReac Type Severity Reaction Status Date / Time streptomycin [Streptomycin] Allergy Mild UNKNOWN Verified 02/17/24 11:52 Penicillins Allergy Unknown unk Verified 02/17/24 11:52 Sulfa (Sulfonamide Allergy Unknown UNKNOWN Verified 02/17/24 11:52 Antibiotics) [SULFA (SULFONAMIDE ANTIBIOTICS)] Active Medications: Current Medications Acetaminophen (Acetaminophen 325 Mg Tablet) 650 mg PO Q6H PRN PRN Reason: Pain, Mild (Pain Scale 1-3), fever or headache Last Admin: 02/18/24 21:47 Dose: 650 mg Apixaban (Apixaban 2.5 Mg Tablet) 2.5 mg PO BID [facility] Last Admin: 02/20/24 09:18 Dose: 2.5 mg Benzonatate (Benzonatate 100 Mg Capsule) 100 mg PO TID PRN PRN Reason: Cough Last Admin: 02/17/24 23:41 Dose: 100 mg Calcium Carbonate (Calcium Carbonate 750 Mg Tab.Chew) 750 mg PO Q4H PRN PRN Reason: Heartburn Ceftriaxone Sodium (Ceftriaxone Sodium 1 Gm Vial) 1 gm IVPUSH Q24H [facility] Last Admin: 02/20/24 11:32 Dose: 1 gm Furosemide (Furosemide 20 Mg/2 Ml Vial) 20 mg IVPUSH DAILY [facility]; Protocol Last Admin: 02/19/24 08:10 Dose: 20 mg Guaifenesin (Guaifenesin La 600 Mg Tab.Er.12h) 600 mg PO BID [facility] Last Admin: 02/20/24 09:26 Dose: 600 mg Azithromycin 500 mg/ Sodium (Chloride) 250 mls @ 125 mls/hr IV Q24H [facility] Last Admin: 02/20/24 11:34 Dose: 125 mls/hr Magnesium Hydroxide (Milk Of Magnesia 30 Ml Oral.Susp) 30 ml PO DAILY PRN PRN Reason: Constipation Melatonin (Melatonin 3 Mg Tablet) 6 mg PO BEDTIME PRN PRN Reason: Insomnia Metoprolol Tartrate (Metoprolol Tartrate 25 Mg Tablet) 25 mg PO Q6H [facility]; Protocol Ondansetron HCl (Ondansetron Hcl 4 Mg/2 Ml Vial) 4 mg IVPUSH Q8H PRN PRN Reason: Nausea and Vomiting Sodium Chloride (0.9 % Sodium Chloride Flush 3 Ml Syringe) 3 ml IVFLUSH QSHIFT [facility] Last Admin: 02/20/24 09:24 Dose: 3 ml Home Medications ?Medication ?Instructions ?Recorded ?Confirmed ?Last Taken ?Type metoprolol tartrate 25 mg tablet 25 mg PO BEDTIME 10/18/20 02/17/24 12/12/20 History acetaminophen 325 mg tablet 650 mg PO Q4H PRN Fever Or Pain 03/03/21 02/17/24 Unknown History bisacodyl 10 mg rectal suppository 10 mg OK DAILY PRN Constipation 03/03/21 02/17/24 Unknown History (Dulcolax (bisacodyl)) docusate sodium 100 mg capsule 100 mg PO DAILY 03/03/21 02/17/24 Unknown History polyethylene glycol 3350 17 gram 17 g PO DAILY PRN Constipation 03/03/21 02/17/24 Unknown History oral powder packet (Miralax) sennosides 8.6 mg tablet (senna) 17.2 mg PO BEDTIME 03/03/21 02/17/24 Unknown History ammonium lactate 12 % topical cream 1 appl topical BID Dry Skin 02/17/24 02/17/24 Unknown History apixaban 2.5 mg tablet (Eliquis) 2.5 mg PO BID 02/17/24 02/17/24 Unknown History dextromethorphan-guaifenesin 10 10 ml PO Q4H PRN Cough 02/17/24 02/17/24 Unknown History mg-100 mg/5 mL oral liquid sodium phosphates 19 gram-7 118 ml OK DAILY PRN Constipation 02/17/24 02/17/24 Unknown History gram/118 mL enema (Fleet Enema) Physical Exam Vital Signs: Last Vital Signs Temp 97.7 F 02/20/24 11:29 Pulse 107 H 02/20/24 11:29 Resp 24 H 02/20/24 11:29 BP 107/67 02/20/24 11:29 Pulse Ox 93 02/20/24 11:29 O2 Del Method Oxymask 02/20/24 11:29 O2 Flow Rate 5 02/20/24 11:29 BMI result Body Mass Index 21.1 Const General: no acute distress, alert and awake Resp Effort & Inspection: normal respiratory effort and able to speak in complete sentences Auscultation: clear to auscultation bilaterally Cardio Rate: regular rate Rhythm: regular rhythm Heart sounds: S1 normal heart sound present and S2 normal heart sound present GI Palpation (GI): Soft to palpation and nontender General: Yes no CVA tenderness Back/Spine/Pelvis Back: no CVA tenderness Skin Other: lower extremities michell Lesions: no lesions Rashes: no rashes Extrem General: Yes edema (+1 BLE pitting edema) Results Lab Results 02/20/24 05:25 02/20/24 05:25 Lab results: Chemistry 02/17/24 02/18/24 02/19/24 12:14 06:29 06:38 Sodium 140 142 142 Potassium 4.4 4.0 4.6 Carbon Dioxide 26 21 L 16 L BUN 41 H 38 H 40 H Creatinine 1.77 H 1.62 H 1.82 H Calcium 9.1 8.6 9.1 02/20/24 05:25 Sodium 143 Potassium 4.6 Carbon Dioxide 22 BUN 42 H Creatinine 2.19 H Calcium 9.1 Hematology 02/17/24 02/18/24 02/19/24 12:14 06:29 06:38 WBC 10.0 9.9 13.7 H Hgb 15.4 D 13.9 L 15.3 Plt Count 341 D 281 267 02/20/24 05:25 WBC 13.7 H Hgb 14.9 Plt Count 254 Urinalysis 02/17/24 12:14 Urine Color Yellow Urine Appearance Cloudy Urine pH 5.5 Ur Specific Thornton 1.015 Urine Protein 30 (1+) H Urine Glucose (UA) Negative Urine Ketones Negative Urine Blood Large (3+) H Urine Nitrite Negative Ur Leukocyte Esterase Large (3+) H Urine RBC 3-5 H Urine WBC 11-20 Ur Squamous Epith Cells 0-2 Hyaline Casts 0-2 Assessment and Plan (1) LAUREN (acute kidney injury): Status: Acute (2) Acute kidney injury superimposed on CKD: Status: Acute (3) Atrial fibrillation with RVR: Status: Acute (4) CHF (congestive heart failure): Qualifiers: Heart failure chronicity: acute Heart failure type: unspecified Qualified Code(s): I50.9 - Heart failure, unspecified Status: Acute Plan Pt with LAUREN on CKD likely component of tubular injury as patient had reduced PO intake prior to admission however, also has RBCs in urine chronically- will check serum and urine immunofixation, complements and anca will also check urine protein/creatinine will re-check urine culture as +leukocytes on UA and culture came back contaminated agree recommend continuing to hold diuresis recommend check blood pressures and monitor I&O closely recommend avoid nephrotoxins recommend daily electrolyte and renal function studies continue supportive care, will continue to follow Discussed with Dr Bourgeois Procedures Date of Service Date of Service: 02/20/24
[2024-02-20] MEDS: Apixaban 2.5 MG TABLET PO ×2 (09:18→20:28)
[2024-02-20] MEDS: 0.9 % Sodium Chloride Flush 3 ML SYRINGE IVFLUSH ×2 (09:24→15:48)
[2024-02-20] MEDS: Metoprolol Tartrate 25 MG TABLET PO ×3 (09:25→20:28)
[2024-02-20] MEDS: Amiodarone HCL 200 MG TABLET PO (09:25)
[2024-02-20] MEDS: guaiFENesin LA 600 MG TAB.ER.12H PO ×2 (09:26→20:28)
[2024-02-20] MEDS: Sodium Bicarbonate 650 MG TABLET PO (09:26)
--- NOTE | 2024-02-20 09:36 | PM.CNCAR ---
History of Present Illness History of Present Illness Date of Service: 02/20/24 Requesting physician: Don Iverson Consult reason: atrial fibrillation Chief complaint: Weakness,cough Narrative: I was consulted to see Radhames in cardiology consultation today for shortness of breath with elevated BNP suggest a decompensated congestive heart failure in setting of community-acquired pneumonia from a care home facility, atrial fibrillation with rapid ventricular response. Patient was a poor historian. Patient brought in because of altered mental status with acute kidney injury and worsening shortness of breath. Noted to have chest x-ray with diffuse bilateral infiltrates with bilateral pleural effusion. BNP in the 1000 range. Patient does have prior history of cardiomyopathy and congestive heart failure although last echocardiogram from 2020 showing LVEF of 50-55%. He was history of paroxysmal atrial fibrillation as per chart although presents with atrial fibrillation rapid ventricular response most likely due to acute medical illness. Heart rate is slightly better controlled. He was continued amiodarone therapy and metoprolol was increased. Currently said he feels extremely weak. Denies any shortness of breath. Oxygen saturation at 98% on current oxygen. Hemodynamically stable. Denies any chest pain. No lightheadedness, syncope. Review of Systems Review of Systems: Yes Unobtainable due to mental status PMFSH Past Medical History Medical History (Updated 02/19/24 @ 11:19 by Don Iverson MD) LAUREN (acute kidney injury) PAD (peripheral artery disease) Severe protein-calorie malnutrition Failure to thrive PAF (paroxysmal atrial fibrillation) Cardiomyopathy Candidal intertrigo Pressure sore Cellulitis Acute exacerbation of CHF (congestive heart failure) HTN (hypertension) HTN (hypertension) CHF (congestive heart failure) Cardiomyopathy, unspecified Persistent atrial fibrillation Atrial fibrillation Family History Family History Father No problems noted. Mother No problems noted. Surgical History Surgical History Hx of appendectomy Social History Social History Household Members: None Household Members Other:: has cousin that lives next door, and neighbor is retired nurse that helps Housing: Long-Term Do you presently have visiting nurse or other home services: No Alcohol intake: former Comment: sitter at bedside Patient Tobacco Use Status: Never used Tobacco Advance Directives Date on File: 04/29/20 service: Yes Current occupational status: retired Current occupation: rt handed Meds Allergies Allergy/AdvReac Type Severity Reaction Status Date / Time streptomycin [Streptomycin] Allergy Mild UNKNOWN Verified 02/17/24 11:52 Penicillins Allergy Unknown unk Verified 02/17/24 11:52 Sulfa (Sulfonamide Allergy Unknown UNKNOWN Verified 02/17/24 11:52 Antibiotics) [SULFA (SULFONAMIDE ANTIBIOTICS)] Active Medications: Current Medications Acetaminophen (Acetaminophen 325 Mg Tablet) 650 mg PO Q6H PRN PRN Reason: Pain, Mild (Pain Scale 1-3), fever or headache Last Admin: 02/18/24 21:47 Dose: 650 mg Amiodarone HCl (Amiodarone Hcl 200 Mg Tablet) 200 mg PO DAILY [facility] Last Admin: 02/20/24 09:25 Dose: 200 mg Apixaban (Apixaban 2.5 Mg Tablet) 2.5 mg PO BID [facility] Last Admin: 02/20/24 09:18 Dose: 2.5 mg Benzonatate (Benzonatate 100 Mg Capsule) 100 mg PO TID PRN PRN Reason: Cough Last Admin: 02/17/24 23:41 Dose: 100 mg Calcium Carbonate (Calcium Carbonate 750 Mg Tab.Chew) 750 mg PO Q4H PRN PRN Reason: Heartburn Ceftriaxone Sodium (Ceftriaxone Sodium 1 Gm Vial) 1 gm IVPUSH Q24H [facility] Last Admin: 02/19/24 13:00 Dose: 1 gm Furosemide (Furosemide 20 Mg/2 Ml Vial) 20 mg IVPUSH DAILY [facility]; Protocol Last Admin: 02/19/24 08:10 Dose: 20 mg Guaifenesin (Guaifenesin La 600 Mg Tab.Er.12h) 600 mg PO BID [facility] Last Admin: 02/20/24 09:26 Dose: 600 mg Azithromycin 500 mg/ Sodium (Chloride) 250 mls @ 125 mls/hr IV Q24H [facility] Last Infusion: 02/19/24 15:56 Dose: Infused Magnesium Hydroxide (Milk Of Magnesia 30 Ml Oral.Susp) 30 ml PO DAILY PRN PRN Reason: Constipation Melatonin (Melatonin 3 Mg Tablet) 6 mg PO BEDTIME PRN PRN Reason: Insomnia Metoprolol Tartrate (Metoprolol Tartrate 25 Mg Tablet) 25 mg PO BID [facility]; Protocol Last Admin: 02/20/24 09:25 Dose: 25 mg Ondansetron HCl (Ondansetron Hcl 4 Mg/2 Ml Vial) 4 mg IVPUSH Q8H PRN PRN Reason: Nausea and Vomiting Sodium Bicarbonate (Sodium Bicarbonate 650 Mg Tablet) 650 mg PO TID [facility] Last Admin: 02/20/24 09:26 Dose: 650 mg Sodium Chloride (0.9 % Sodium Chloride Flush 3 Ml Syringe) [address] [facility] Last Admin: 02/20/24 09:24 Dose: 3 ml Home Medications ?Medication ?Instructions ?Recorded ?Confirmed ?Last Taken ?Type metoprolol tartrate 25 mg tablet 25 mg PO BEDTIME 10/18/20 02/17/24 12/12/20 History acetaminophen 325 mg tablet 650 mg PO Q4H PRN Fever Or Pain 03/03/21 02/17/24 Unknown History bisacodyl 10 mg rectal suppository 10 mg SD DAILY PRN Constipation 03/03/21 02/17/24 Unknown History (Dulcolax (bisacodyl)) docusate sodium 100 mg capsule 100 mg PO DAILY 03/03/21 02/17/24 Unknown History polyethylene glycol 3350 17 gram 17 g PO DAILY PRN Constipation 03/03/21 02/17/24 Unknown History oral powder packet (Miralax) sennosides 8.6 mg tablet (senna) 17.2 mg PO BEDTIME 03/03/21 02/17/24 Unknown History ammonium lactate 12 % topical cream 1 appl topical BID Dry Skin 02/17/24 02/17/24 Unknown History apixaban 2.5 mg tablet (Eliquis) 2.5 mg PO BID 02/17/24 02/17/24 Unknown History dextromethorphan-guaifenesin 10 10 ml PO Q4H PRN Cough 02/17/24 02/17/24 Unknown History mg-100 mg/5 mL oral liquid sodium phosphates 19 gram-7 118 ml SD DAILY PRN Constipation 02/17/24 02/17/24 Unknown History gram/118 mL enema (Fleet Enema) Physical Exam Vital Signs: Vital Signs: Last Vital Signs Temp 97 F 02/20/24 07:48 Pulse 106 H 02/20/24 09:25 Resp 12 02/20/24 07:48 BP 130/74 02/20/24 09:25 Pulse Ox 95 02/20/24 07:48 O2 Del Method Oxymask 02/20/24 07:48 O2 Flow Rate 5 02/20/24 07:48 BMI result Body Mass Index 21.1 Const: General: cooperative, comfortable, alert and awake Nutritional Appearance: thin and other (Frail appearing) Orientation/consciousness: oriented to person and oriented to place HEENT: Head: Yes normocephalic and Yes atraumatic Neck: Neck: Yes trachea midline, Yes supple and Yes no JVD Resp: Effort & Inspection: decreased respiratory effort Auscultation: no wheezes and breath sounds absent on th left (Base) Cardio: Jugular venous distension: no JVD Rate: regular rate Rhythm: regular rhythm Heart sounds: S1 normal heart sound present, S2 normal heart sound present, no click, no gallops and Murmur heart sound present systolic GI: Auscultation: normal bowel sounds Skin: General skin exam: no rashes or lesions noted Neuro: General: oriented to person, oriented to place and no focal motor deficits Extrem: General: Yes no clubbing, cyanosis or edema and Yes venous stasis dermatitis Objective Labs and Meds 02/20/24 05:25 02/20/24 05:25 Lab results: Laboratory Results - last 24 hr 02/20/24 05:25 WBC 13.7 H RBC 5.18 Hgb 14.9 Hct 47.6 MCV 91.9 MCH 28.8 MCHC 31.3 RDW 15.0 Plt Count 254 MPV 11.4 Absolute Nucleated RBC 0.000 Nucleated RBC % (auto) 0.0 Sodium 143 Potassium 4.6 Chloride 108 Carbon Dioxide 22 Anion Gap 18 BUN 42 H Creatinine 2.19 H Estim Creat Clear Calc 21.6 Estimated GFR 28 Random Glucose 123 H Calcium 9.1 B-Natriuretic Peptide 1002 H Assessment and Plan (1) Community acquired pneumonia: Status: Acute Patient presents with shortness of breath and weakness and failure to thrive and altered mental status with hypoxemia. Patient has bilateral pleural effusion. BNP is elevated although the setting of acute kidney injury. Clinically does not appear to be in marked fluid overload at this point in time. I would hold off on his diuretics at this point time. Continue to encourage p.o. intake. Continue supportive care for his underlying pneumonia and treat his hypoxemia. Continue to repeat imaging to see if there is worsening pleural effusions that may require further treatment with thoracocentesis. I would consider getting an echocardiogram to evaluate his LV ejection fraction given his prior history of cardiomyopathy. Worsening kidney function could be related to over diuresis and/or worsening cardiac function. Will need to evaluate that with an echocardiogram. Overall prognosis is guarded. (2) Atrial fibrillation with RVR: Status: Acute Recurrent atrial fibrillation despite amiodarone therapy. Failed rhythm control approach. Will discontinue amiodarone therapy and pursue better rate control. Would increase metoprolol to 25 mg q.6 hours. Continue full disclosure cardiac telemetry. Agree with Eliquis therapy. It is possible that recurrent atrial fibrillation is also causing lower stroke volume and worsening renal function. Will need to check echocardiogram to evaluate for LV systolic function. Overall prognosis is guarded. Continue supportive care. Will follow if need be. Thank you for allowing me to partake in his care Procedures Date of Service Date of Service: 02/20/24
--- NOTE | 2024-02-20 09:49 | HO.PM.IMPN ---
Subjective Subjective Date of Service: 02/20/24 Interval History: seen and evaluated feels better overall On O2 supplement, Cr went up to 1.8 rate better controlled 90s-110s cultures negative Review of Systems Review of Systems: Yes all other systems are reviewed and are negative Physical Exam Vital Signs: Vital Signs: Last Vital Signs Temp 97 F 02/20/24 07:48 Pulse 106 H 02/20/24 09:25 Resp 12 02/20/24 07:48 BP 130/74 02/20/24 09:25 Pulse Ox 95 02/20/24 07:48 O2 Del Method Oxymask 02/20/24 07:48 O2 Flow Rate 5 02/20/24 07:48 BMI result Body Mass Index 21.1 Const: Other: Constitutional : Awake, interactive, not in distress Neck : Normal inspection, Supple Cardiovascular : RRR, no JVP, no lower extremity edema, Systolic murmur Respiratory : good bilateral air entry decreased at the bases, basal fine crackles bilaterally Gastrointestinal: soft, lax, Normal bowel sounds, Non tender Skin : Warm, Dry Neurological : Alert & disoriented to time and place, No focal deficit Objective Data Active Medications Acetaminophen (Acetaminophen 325 Mg Tablet) 650 mg PO Q6H PRN PRN Reason: Pain, Mild (Pain Scale 1-3), fever or headache Last Admin: 02/18/24 21:47 Dose: 650 mg Documented By: BRENDEN Amiodarone HCl (Amiodarone Hcl 200 Mg Tablet) 200 mg PO DAILY [facility] Last Admin: 02/20/24 09:25 Dose: 200 mg Documented By: STANISLAW Apixaban (Apixaban 2.5 Mg Tablet) 2.5 mg PO BID [facility] Last Admin: 02/20/24 09:18 Dose: 2.5 mg Documented By: STANISLAW Benzonatate (Benzonatate 100 Mg Capsule) 100 mg PO TID PRN PRN Reason: Cough Last Admin: 02/17/24 23:41 Dose: 100 mg Documented By: BRENDEN Calcium Carbonate (Calcium Carbonate 750 Mg Tab.Chew) 750 mg PO Q4H PRN PRN Reason: Heartburn Ceftriaxone Sodium (Ceftriaxone Sodium 1 Gm Vial) 1 gm IVPUSH Q24H [facility] Last Admin: 02/19/24 13:00 Dose: 1 gm Documented By: TIMMY Furosemide (Furosemide 20 Mg/2 Ml Vial) 20 mg IVPUSH DAILY [facility]; Protocol Last Admin: 02/19/24 08:10 Dose: 20 mg Documented By: TIMMY Guaifenesin (Guaifenesin La 600 Mg Tab.Er.12h) 600 mg PO BID [facility] Last Admin: 02/20/24 09:26 Dose: 600 mg Documented By: STANISLAW Azithromycin 500 mg/ Sodium (Chloride) 250 mls @ 125 mls/hr IV Q24H [facility] Last Infusion: 02/19/24 15:56 Dose: Infused Documented By: TIMMY Magnesium Hydroxide (Milk Of Magnesia 30 Ml Oral.Susp) 30 ml PO DAILY PRN PRN Reason: Constipation Melatonin (Melatonin 3 Mg Tablet) 6 mg PO BEDTIME PRN PRN Reason: Insomnia Metoprolol Tartrate (Metoprolol Tartrate 25 Mg Tablet) 25 mg PO BID [facility]; Protocol Last Admin: 02/20/24 09:25 Dose: 25 mg Documented By: STANISLAW Ondansetron HCl (Ondansetron Hcl 4 Mg/2 Ml Vial) 4 mg IVPUSH Q8H PRN PRN Reason: Nausea and Vomiting Sodium Bicarbonate (Sodium Bicarbonate 650 Mg Tablet) 650 mg PO TID [facility] Last Admin: 02/20/24 09:26 Dose: 650 mg Documented By: STANISLAW Sodium Chloride (0.9 % Sodium Chloride Flush 3 Ml Syringe) 3 ml IVFLUSH QSHIFT [facility] Last Admin: 02/20/24 09:24 Dose: 3 ml Documented By: STANISLAW Labs 02/20/24 05:25 02/20/24 05:25 Labs: Laboratory Results - last 24 hr 02/20/24 05:25 MCV 91.9 MCH 28.8 MCHC 31.3 RDW 15.0 Plt Count 254 MPV 11.4 Absolute Nucleated RBC 0.000 Nucleated RBC % (auto) 0.0 Anion Gap 18 Estim Creat Clear Calc 21.6 Estimated GFR 28 Random Glucose 123 H Calcium 9.1 B-Natriuretic Peptide 1002 H Microbiology Microbiology Results: Microbiology 02/17/24 12:37 Blood Culture - Preliminary Blood - Venous No growth after 48 hours. 02/17/24 12:24 Blood Culture - Preliminary Blood - Venous No growth after 48 hours. Assessment and Plan (1) LAUREN (acute kidney injury): Status: Acute (2) Community acquired pneumonia: Status: Acute (3) Bilateral pleural effusion: Status: Acute (4) Pneumonia: Status: Acute (5) CHF exacerbation: Status: Acute (6) Atrial fibrillation with RVR: Status: Acute Plan An 89 years old male with PMH of PAF on eliquis, PAD, CHF, CKD, HTN among others who presents to the hospital from SNF with increase weakness and fall. acute CHF exacerbation and hypoxia and pleural effusion repeated CXR showing Edema and effusion Hold Lasix as Cr worsening BNP at 100 likely related on presistent Afib now get new Echo Cardiology consult Community aquired pneumonia CXR showing infiltrate\atelactasis IV Azithromycin and Ceftriaxone Cough medicine negative cultures UTI on Ceftriaxone negative culture LAUREN on CKD3 with metabolic acidosis Cr worse to 2.2 DC sodium bicarb as acidemia corrected Nephrology eval Physical deconditioning PT eval encourage PO intake PAF with RvR rate in 90s-110s continue Eliquis and Metoprolol, Amiodarone Decrease Eliquis to 2.5 bid given his age and weight DVT PPx Eliquis The patient will likely need overnight hospital stay for treatment of multifocal pneumonia , CHF exacerbation and LAUREN pending consult from cardiology and nephrology Quality Stroke Does the patient have a stroke diagnosis?: No VTE Prior VTE?: No VTE Risk Level:: Medical - moderate - high VTE Device Contraindication: Treatment Not Indicated VTE Drug Contraindication: N/A - Med Ordered
--- NOTE | 2024-02-20 10:55 | MHC.CM.PN ---
Per MD rounds patient not medically cleared for dc. PT rec skilled PT upon return to [facility]. [facility] updated. CM will continue to follow.
[2024-02-20] MEDS: cefTRIAXone sodium 1 GM VIAL IVPUSH ×2 (11:25→11:32)
[2024-02-20] MEDS: Azithromycin 500 MG in 0.9 % Sodium Chloride 250 ML 125 MG IV (11:34)
[2024-02-21] MEDS: 0.9 % Sodium Chloride Flush 3 ML SYRINGE IVFLUSH ×4 (00:11→19:22)
[2024-02-21 02:06] LABS: Creatinine Urine 99.04 mg/dL; Total Protein Urine Random 140 mg/dL (<12)
[2024-02-21 03:30] VITALS: BP 138/79; PULSE 100; RESP 17; TEMP 36.2; O2SAT 92
[2024-02-21] MEDS: Metoprolol Tartrate 25 MG TABLET PO ×4 (04:03→19:22)
[2024-02-21 07:20] LABS: Hematocrit 45.1 % (42.0-52.0); Hemoglobin 14.6 g/dl (14.0-18.0); Mean Corpuscular HGB Conc 32.4 g/dl (31.0-36.0); Mean Corpuscular Hemoglobin 29.2 pg (27.0-33.0); Mean Corpuscular Volume 90.2 fL (80.0-98.0); Mean Platelet Volume 11.6 fL (9.4-12.4); Platelet Count 242 X10*3/uL (160-400); Red Cell Distribution Width 15.4 % (11.0-16.0); White Blood Count 14.2 X10*3/uL (4.8-10.8)
[2024-02-21 07:34] LABS: Anion Gap 13 (12-20); Blood Urea Nitrogen 42 mg/dL (9-16); Calcium 8.7 mg/dL (8.4-10.2); Carbon Dioxide 24 mmol/L (22-29); Chloride 110 mmol/L (96-108); Creatinine Clr Calc Pharmacy 26.2; Estimated Glomerular Filt Rate 36; Glucose Random 127 mg/dL (60-115); Potassium 4.5 mmol/L (3.3-5.1); Sodium 142 mmol/L (135-145)
[2024-02-21 07:49] VITALS: BP 105/73; PULSE 99; RESP 18; TEMP 36.2; O2SAT 97
--- NOTE | 2024-02-21 08:55 | P.PNNP_ITS ---
Subjective Subjective Date of Service: 02/21/24 Interval history: 89 y/o with a medical history of paroxysmal afib, PAD, CHF, HTN, CKD states does not see a kidney doctor as outpatient. presented here 02/16 with increased weakness, had fallen. Being treated for PNA, UTI and CHF exacerbation Nephrology consulted for LAUREN last baseline creatinine on file from 03/2021 was 1.39 creatinine 02/16 was 1.77, 02/17 was 1.62, . was 1.82, 02/19 2.19, 02/20 1.80 UA +1 protein, +3 blood (3-5 RBCs), 3+leukocyte esterace no renal imaging this admission urine protein/creatinine ratio 1.41 02/19 was receiving furosemide 20mg IVP daily, held 02/19 and 02/20 creatinine is 1.80 one episode of hypoperfusion on 02/17 BP 88/58 UOP 650mL/last 24 horus Physical Exam 2 Vital Signs: Vital Signs: Last Vital Signs Temp 97.2 F 02/21/24 07:49 Pulse 99 02/21/24 07:49 Resp 18 02/21/24 07:49 BP 105/73 02/21/24 07:49 Pulse Ox 97 02/21/24 07:49 O2 Del Method Nasal Cannula 02/21/24 07:49 O2 Flow Rate 3 02/21/24 07:49 BMI result Body Mass Index 21.1 Const: General: no acute distress, alert and awake Resp: Effort & Inspection: normal respiratory effort and able to speak in complete sentences Auscultation: clear to auscultation bilaterally Cardio: Rate: regular rate Rhythm: regular rhythm Heart sounds: S1 normal heart sound present and S2 normal heart sound present GI: Palpation (GI): Soft to palpation and nontender : General: Yes no CVA tenderness Back/Spine/Pelvis: Back: no CVA tenderness Skin: Other: lower extremities michell Lesions: no lesions Rashes: no rashes Extrem: General: Yes edema (trace BLE pitting edema) Objective Data Labs 02/21/24 05:44 02/21/24 05:44 Labs: Laboratory Results - last 24 hr 02/21/24 02/21/24 00:19 05:44 WBC 14.2 H RBC 5.00 Hgb 14.6 Hct 45.1 MCV 90.2 MCH 29.2 MCHC 32.4 RDW 15.4 Plt Count 242 MPV 11.6 Absolute Nucleated RBC 0.000 Nucleated RBC % (auto) 0.0 Sodium 142 Potassium 4.5 Chloride 110 H Carbon Dioxide 24 Anion Gap 13 BUN 42 H Creatinine 1.80 H Estim Creat Clear Calc 26.2 Estimated GFR 36 Random Glucose 127 H Calcium 8.7 U Random Total Protein 140 H Urine Creatinine 99.04 Microbiology Microbiology Results: Microbiology 02/17/24 12:37 Blood - Venous Blood Culture - Preliminary No growth after 48 hours. 02/17/24 12:24 Blood - Venous Blood Culture - Preliminary No growth after 48 hours. 02/17/24 Unknown Urine clean catch - Clean Catch Midstream Urine Culture - Final Procedures Date of Service Date of Service: 02/21/24 Assessment & Plan Assessment and plan (1) LAUREN (acute kidney injury): Status: Acute (2) Acute kidney injury superimposed on CKD: Status: Acute Plan Pt with LAUREN on CKD likely component of tubular injury as patient had reduced PO intake prior to admission, in setting of diuresis Improving- recommend continuing to hold diuresis today also has RBCs in urine chronically- serum and urine immunofixation, complements and anca pending urine protein/creatinine ratio elevated at 1.41 urine culture pending renal ultrasound 02/19 shows echogenic parenchyma of right kidney as well as moderate to severe right hydronephrosis and proximal hydroureter. Limited evaluation of left kidney, which is smaller than right. Enlarge prostate. Recommend urologic consultation recommend check blood pressures and monitor I&O closely recommend avoid nephrotoxins recommend daily electrolyte and renal function studies continue supportive care, will continue to follow Discussed with Dr Bourgeois Time Spent With Patient Time: Total time managing care of this patient today ____ minutes. Progress Note: Quality Stroke Does the patient have a stroke diagnosis?: No
[2024-02-21] MEDS: guaiFENesin LA 600 MG TAB.ER.12H PO ×2 (09:19→19:22)
[2024-02-21] MEDS: Apixaban 2.5 MG TABLET PO ×2 (09:19→19:22)
[2024-02-21 11:53] VITALS: BP 147/85; PULSE 107; RESP 18; TEMP 37; O2SAT 98
[2024-02-21] MEDS: Azithromycin 500 MG in 0.9 % Sodium Chloride 250 ML 125 MG IV (12:40)
[2024-02-21] MEDS: cefTRIAXone sodium 1 GM VIAL IVPUSH (12:40)
[2024-02-21] MEDS: LORazepam 2 MG/ML VIAL 0.25 MG IVPUSH (15:03)
[2024-02-21 15:05] VITALS: BP 107/69; PULSE 105; RESP 16; TEMP 36.2; O2SAT 96
--- NOTE | 2024-02-21 15:23 | P.PNIM_ITS ---
Subjective Subjective Date of Service: 02/21/24 Interval History: seen and evaluated feels better overall On O2 supplement, Cr down to 1.8 rate better controlled 90s-110s cultures negative Review of Systems Review of Systems: Yes all other systems are reviewed and are negative Physical Exam 2 Vital Signs: Vital Signs: Last Vital Signs Temp 97.1 F 02/21/24 15:05 Pulse 105 H 02/21/24 15:05 Resp 16 02/21/24 15:05 BP 107/69 02/21/24 15:05 Pulse Ox 96 02/21/24 15:05 O2 Del Method Nasal Cannula 02/21/24 15:05 O2 Flow Rate 3 02/21/24 15:05 BMI result Body Mass Index 21.1 Const: Other: Constitutional : Awake, interactive, not in distress Neck : Normal inspection, Supple Cardiovascular : RRR, no JVP, no lower extremity edema, Systolic murmur Respiratory : good bilateral air entry decreased at the bases, basal fine crackles bilaterally Gastrointestinal: soft, lax, Normal bowel sounds, Non tender Skin : Warm, Dry Neurological : Alert & disoriented to time and place, No focal deficit Objective Data Active Medications Acetaminophen (Acetaminophen 325 Mg Tablet) 650 mg PO Q6H PRN PRN Reason: Pain, Mild (Pain Scale 1-3), fever or headache Last Admin: 02/18/24 21:47 Dose: 650 mg Documented By: BRENDEN Apixaban (Apixaban 2.5 Mg Tablet) 2.5 mg PO BID [facility] Last Admin: 02/21/24 09:19 Dose: 2.5 mg Documented By: FAITH Benzonatate (Benzonatate 100 Mg Capsule) 100 mg PO TID PRN PRN Reason: Cough Last Admin: 02/17/24 23:41 Dose: 100 mg Documented By: BRENDEN Calcium Carbonate (Calcium Carbonate 750 Mg Tab.Chew) 750 mg PO Q4H PRN PRN Reason: Heartburn Ceftriaxone Sodium (Ceftriaxone Sodium 1 Gm Vial) 1 gm IVPUSH Q24H [facility] Last Admin: 02/21/24 12:40 Dose: 1 gm Documented By: FAITH Furosemide (Furosemide 20 Mg/2 Ml Vial) 20 mg IVPUSH DAILY [facility]; Protocol Last Admin: 02/19/24 08:10 Dose: 20 mg Documented By: TIMMY Guaifenesin (Guaifenesin La 600 Mg Tab.Er.12h) 600 mg PO BID [facility] Last Admin: 02/21/24 09:19 Dose: 600 mg Documented By: FAITH Azithromycin 500 mg/ Sodium (Chloride) 250 mls @ 125 mls/hr IV Q24H [facility] Last Infusion: 02/21/24 14:50 Dose: Infused Documented By: FAITH Magnesium Hydroxide (Milk Of Magnesia 30 Ml Oral.Susp) 30 ml PO DAILY PRN PRN Reason: Constipation Melatonin (Melatonin 3 Mg Tablet) 6 mg PO BEDTIME PRN PRN Reason: Insomnia Metoprolol Tartrate (Metoprolol Tartrate 25 Mg Tablet) 25 mg PO Q6H [facility]; Protocol Last Admin: 02/21/24 15:11 Dose: 25 mg Documented By: FAITH Ondansetron HCl (Ondansetron Hcl 4 Mg/2 Ml Vial) 4 mg IVPUSH Q8H PRN PRN Reason: Nausea and Vomiting Quetiapine Fumarate (Quetiapine Fumarate 25 Mg Tablet) 25 mg PO BID PRN PRN Reason: anxiety/restlessness Sodium Chloride (0.9 % Sodium Chloride Flush 3 Ml Syringe) 3 ml IVFLUSH QSHIFT [facility] Last Admin: 02/21/24 09:19 Dose: 3 ml Documented By: FAITH Labs 02/21/24 05:44 02/21/24 05:44 Labs: Laboratory Results - last 24 hr 02/21/24 02/21/24 00:19 05:44 MCV 90.2 MCH 29.2 MCHC 32.4 RDW 15.4 Plt Count 242 MPV 11.6 Absolute Nucleated RBC 0.000 Nucleated RBC % (auto) 0.0 Anion Gap 13 Estim Creat Clear Calc 26.2 Estimated GFR 36 Random Glucose 127 H Calcium 8.7 U Random Total Protein 140 H Urine Creatinine 99.04 Assessment and Plan (1) LAUREN (acute kidney injury): Status: Acute (2) Community acquired pneumonia: Status: Acute (3) Bilateral pleural effusion: Status: Acute (4) Acute on chronic systolic (congestive) heart failure: Status: Acute Plan An 89 years old male with PMH of PAF on eliquis, PAD, CHF, CKD, HTN among others who presents to the hospital from SNF with increase weakness and fall. acute systolic CHF exacerbation and hypoxia and pleural effusion repeated CXR showing Edema and effusion Hold Lasix as Cr worsening BNP at 1000 likely related on presistent Afib and low stroke volume get new Echo showing low EF of 25-30% Cardiology input appreciated, failed amiodarone therapy, try Metoprolol, consider hospice Community aquired pneumonia CXR showing infiltrate\atelactasis IV Azithromycin and Ceftriaxone Cough medicine negative cultures UTI on Ceftriaxone negative culture LAUREN on CKD3 with metabolic acidosis Cr of 1.8 US showing right sided hydronephrosis Urology consult Nephrology following Physical deconditioning PT eval encourage PO intake PAF with RvR rate in 90s-110s continue Eliquis and Metoprolol, DC Amiodarone Decrease Eliquis to 2.5 bid given his age and weight DVT PPx Eliquis Goals of care: reached out to his HCP to discuss goals of care. They will speak to family to make decision if [employer] is the way to proceed. Please call back Yuniel Desir [phone] The patient will likely need overnight hospital stay for treatment of multifocal pneumonia , CHF exacerbation and LAUREN pending consult from cardiology, urology and nephrology Quality Stroke Does the patient have a stroke diagnosis?: No VTE Prior VTE?: No VTE Risk Level:: Medical - moderate - high VTE Device Contraindication: Treatment Not Indicated VTE Drug Contraindication: N/A - Med Ordered
[2024-02-21 19:15] VITALS: BP 122/79; PULSE 110; RESP 16; TEMP 36.6; O2SAT 92
[2024-02-21] MEDS: Acetaminophen 325 MG TABLET 650 MG PO (19:22)
[2024-02-21] MEDS: Melatonin 3 MG TABLET 6 MG PO (19:22)
[2024-02-21] MEDS: QUEtiapine Fumarate 25 MG TABLET PO (19:22)
[2024-02-21 23:26] VITALS: BP 102/70; PULSE 93; RESP 18; TEMP 36.1; O2SAT 93
[2024-02-22] VITALS (7 sets, daily range): BP systolic 104–140; BP diastolic 62–85; PULSE 82–127; RESP 14–18; TEMP 36.1–36.7; O2SAT 90–99
[2024-02-22] MEDS: Metoprolol Tartrate 25 MG TABLET PO ×4 (03:38→19:38)
[2024-02-22] MEDS: 0.9 % Sodium Chloride Flush 3 ML SYRINGE IVFLUSH ×3 (08:01→19:38)
[2024-02-22] MEDS: Apixaban 2.5 MG TABLET PO ×2 (08:01→19:37)
[2024-02-22] MEDS: guaiFENesin LA 600 MG TAB.ER.12H PO ×2 (08:01→19:38)
[2024-02-22 08:14] LABS: Hematocrit 44.3 % (42.0-52.0); Hemoglobin 14.4 g/dl (14.0-18.0); Mean Corpuscular HGB Conc 32.5 g/dl (31.0-36.0); Mean Corpuscular Hemoglobin 29.4 pg (27.0-33.0); Mean Corpuscular Volume 90.4 fL (80.0-98.0); Mean Platelet Volume 11.5 fL (9.4-12.4); Platelet Count 212 X10*3/uL (160-400); Red Cell Distribution Width 15.6 % (11.0-16.0); White Blood Count 13.5 X10*3/uL (4.8-10.8)
[2024-02-22 08:24] LABS: Anion Gap 16 (12-20); Blood Urea Nitrogen 48 mg/dL (9-16); Calcium 8.9 mg/dL (8.4-10.2); Carbon Dioxide 20 mmol/L (22-29); Chloride 110 mmol/L (96-108); Creatinine Clr Calc Pharmacy 28.3; Estimated Glomerular Filt Rate 39; Glucose Random 114 mg/dL (60-115); Potassium 4.1 mmol/L (3.3-5.1); Sodium 142 mmol/L (135-145)
--- NOTE | 2024-02-22 09:10 | PM.PNNEP ---
Subjective Subjective Date of Service: 02/22/24 Interval history: 89 y/o with a medical history of paroxysmal afib, PAD, CHF, HTN, CKD reportedly does not see a kidney doctor as outpatient. presented 02/16 with increased weakness, had fallen. Being treated for PNA, UTI and CHF exacerbation Nephrology consulted for LAUREN last baseline creatinine on file from 03/2021 was 1.39 creatinine 02/16 was 1.77, 02/17 was 1.62, . was 1.82, 02/19 2.19, 02/20 1.80, 02/21 is 1.67 UA +1 protein, +3 blood (3-5 RBCs), 3+leukocyte esterace no renal imaging this admission urine protein/creatinine ratio 1.41 02/19 was receiving furosemide 20mg IVP daily, on hold and creatinine trending down one episode of hypoperfusion on 02/17 BP 88/58 UOP 550mL/last 24 horus Physical Exam Vital Signs: Vital Signs: Last Vital Signs Temp 96.9 F 02/22/24 07:23 Pulse 112 H 02/22/24 07:23 Resp 16 02/22/24 07:23 BP 104/62 02/22/24 07:23 Pulse Ox 96 02/22/24 07:23 O2 Del Method Nasal Cannula 02/22/24 07:23 O2 Flow Rate 2 02/22/24 07:23 BMI result Body Mass Index 21.1 Const: General: no acute distress, alert and awake Resp: Effort & Inspection: normal respiratory effort and able to speak in complete sentences Auscultation: clear to auscultation bilaterally Cardio: Rate: regular rate Rhythm: regular rhythm Heart sounds: S1 normal heart sound present and S2 normal heart sound present GI: Palpation (GI): Soft to palpation and nontender : General: Yes no CVA tenderness Back/Spine/Pelvis: Back: no CVA tenderness Skin: Other: lower extremities michell Lesions: no lesions Rashes: no rashes Extrem: General: Yes edema (trace BLE pitting edema) Objective Data Labs 02/22/24 07:39 02/22/24 07:39 Labs: Laboratory Results - last 24 hr 02/22/24 02/22/24 07:39 10:00 WBC 13.5 H RBC 4.90 Hgb 14.4 Hct 44.3 MCV 90.4 MCH 29.4 MCHC 32.5 RDW 15.6 Plt Count 212 MPV 11.5 Absolute Nucleated RBC 0.000 Nucleated RBC % (auto) 0.0 Sodium 142 Potassium 4.1 Chloride 110 H Carbon Dioxide 20 L Anion Gap 16 BUN 48 H Creatinine 1.67 H Estim Creat Clear Calc 28.3 Estimated GFR 39 Random Glucose 114 Calcium 8.9 Urine Color BROWN Urine Appearance Cloudy Urine pH 6.5 Ur Specific [place] 1.020 Urine Protein 300 (3+) H Urine Glucose (UA) 100 H Urine Ketones 15 Urine Blood Large (3+) H Urine Nitrite See Note Ur Leukocyte Esterase Moderate (2+) H Urine RBC >20 H Urine WBC >50 H Ur Squamous Epith Cells 0-2 Urine Bacteria 3+ Hyaline Casts 0-2 Microbiology Microbiology Results: Microbiology 02/17/24 12:37 Blood - Venous Blood Culture - Preliminary No growth after 48 hours. 02/17/24 12:24 Blood - Venous Blood Culture - Preliminary No growth after 48 hours. 02/17/24 Unknown Urine clean catch - Clean Catch Midstream Urine Culture - Final Procedures Date of Service Date of Service: 02/22/24 Assessment & Plan Assessment and plan (1) LAUREN (acute kidney injury): Status: Acute (2) Acute kidney injury superimposed on CKD: Status: Acute Plan Pt with LAUREN on CKD likely component of tubular injury as patient had reduced PO intake prior to admission, in setting of diuresis Renal function continues to improve- recommend continuing to hold diuresis also has RBCs in urine chronically- serum and urine immunofixation, complements and anca pending urine protein/creatinine ratio elevated at 1.41 urine culture pending renal ultrasound 02/19 shows echogenic parenchyma of right kidney as well as moderate to severe right hydronephrosis and proximal hydroureter. Limited evaluation of left kidney, which is smaller than right. Enlarge prostate. urology has been consulted recommend check blood pressures and monitor I&O closely recommend avoid nephrotoxins recommend daily electrolyte and renal function studies continue supportive care, will continue to follow Discussed with Dr Pena Time Spent With Patient Time: Total time managing care of this patient today ____ minutes. Progress Note: Quality Stroke Does the patient have a stroke diagnosis?: No
--- NOTE | 2024-02-22 09:15 | P.CNUR_ITS ---
History of Present Illness Consult details Consult date: 02/22/24 Narrative: Radhames is an 89 year old male with CARLOS ENRIQUE. 89 years old male with PMH of PAF on eliquis, PAD, CHF, CKD, HTN among others who presented on 02/17/24 to the ED from SNF due to increase weakness and fall. Urology consulted due to renal US findings of right hydronephrosis. Patient voiding without difficulty. Review of Systems 2 Review of Systems: Yes all other systems are reviewed and are negative Constitutional: Constitutional: Reports no additional constitutional complaints Eyes: Eyes: Reports no additional eye complaints ENT: Reports system reviewed and no additional complaints, except as documented Cardiovascular: Cardiovascular: Reports no additional cardiovascular complaints Respiratory: Respiratory: Reports no additional respiratory complaints Gastrointestinal: Gastrointestinal: Reports no additional gastrointestinal complaints Genitourinary: Genitourinary: Reports as per HPI Musculoskeletal: Musculoskeletal: Reports no additional musculoskeletal complaints Integumentary/Breasts: Skin/Breast: Reports system reviewed and no additional complaints, except as docu Neurologic: Reports system reviewed and no additional complaints, except as documented Psychiatric: Psychiatric: Reports no additional psychiatric complaints Endocrine: Endocrine: Reports no additional endocrine complaints Hematologic/Lymphatic: Hematologic/Lymphatic: Reports no additional hematologic/lymphatic complaints Allergic/Immunologic: Allergic/Immunologic: Reports no additional allergic/immunologic complaints PMFSH Past Medical History Medical History LAUREN (acute kidney injury) PAD (peripheral artery disease) Severe protein-calorie malnutrition Failure to thrive PAF (paroxysmal atrial fibrillation) Cardiomyopathy Candidal intertrigo Pressure sore Cellulitis Acute exacerbation of CHF (congestive heart failure) HTN (hypertension) HTN (hypertension) CHF (congestive heart failure) Cardiomyopathy, unspecified Persistent atrial fibrillation Atrial fibrillation Family History Family History Father No problems noted. Mother No problems noted. Surgical History Surgical History Hx of appendectomy Social History Social History Household Members: None Household Members Other:: has cousin that lives next door, and neighbor is retired nurse that helps Housing: Halfway Do you presently have visiting nurse or other home services: No Alcohol intake: former Comment: sitter at bedside Patient Tobacco Use Status: Never used Tobacco Advance Directives Date on File: 04/29/20 service: Yes Current occupational status: retired Current occupation: rt handed Meds Allergies Allergy/AdvReac Type Severity Reaction Status Date / Time streptomycin [Streptomycin] Allergy Mild UNKNOWN Verified 02/17/24 11:52 Penicillins Allergy Unknown unk Verified 02/17/24 11:52 Sulfa (Sulfonamide Allergy Unknown UNKNOWN Verified 02/17/24 11:52 Antibiotics) [SULFA (SULFONAMIDE ANTIBIOTICS)] Active Medications: Current Medications Acetaminophen (Acetaminophen 325 Mg Tablet) 650 mg PO Q6H PRN PRN Reason: Pain, Mild (Pain Scale 1-3), fever or headache Last Admin: 02/21/24 19:22 Dose: 650 mg Apixaban (Apixaban 2.5 Mg Tablet) 2.5 mg PO BID [facility] Last Admin: 02/22/24 08:01 Dose: 2.5 mg Benzonatate (Benzonatate 100 Mg Capsule) 100 mg PO TID PRN PRN Reason: Cough Last Admin: 02/17/24 23:41 Dose: 100 mg Calcium Carbonate (Calcium Carbonate 750 Mg Tab.Chew) 750 mg PO Q4H PRN PRN Reason: Heartburn Ceftriaxone Sodium (Ceftriaxone Sodium 1 Gm Vial) 1 gm IVPUSH Q24H [facility] Last Admin: 02/21/24 12:40 Dose: 1 gm Furosemide (Furosemide 20 Mg/2 Ml Vial) 20 mg IVPUSH DAILY [facility]; Protocol Last Admin: 02/19/24 08:10 Dose: 20 mg Guaifenesin (Guaifenesin La 600 Mg Tab.Er.12h) 600 mg PO BID [facility] Last Admin: 02/22/24 08:01 Dose: 600 mg Azithromycin 500 mg/ Sodium (Chloride) 250 mls @ 125 mls/hr IV Q24H [facility] Last Infusion: 02/21/24 14:50 Dose: Infused Magnesium Hydroxide (Milk Of Magnesia 30 Ml Oral.Susp) 30 ml PO DAILY PRN PRN Reason: Constipation Melatonin (Melatonin 3 Mg Tablet) 6 mg PO BEDTIME PRN PRN Reason: Insomnia Last Admin: 02/21/24 19:22 Dose: 6 mg Metoprolol Tartrate (Metoprolol Tartrate 25 Mg Tablet) 25 mg PO Q6H [facility]; Protocol Last Admin: 02/22/24 08:01 Dose: 25 mg Ondansetron HCl (Ondansetron Hcl 4 Mg/2 Ml Vial) 4 mg IVPUSH Q8H PRN PRN Reason: Nausea and Vomiting Quetiapine Fumarate (Quetiapine Fumarate 25 Mg Tablet) 25 mg PO BID PRN PRN Reason: anxiety/restlessness Last Admin: 02/21/24 19:22 Dose: 25 mg Sodium Chloride (0.9 % Sodium Chloride Flush 3 Ml Syringe) 3 ml IVFLUSH [facility] Last Admin: 02/22/24 08:01 Dose: 3 ml Home Medications ?Medication ?Instructions ?Recorded ?Confirmed ?Last Taken ?Type metoprolol tartrate 25 mg tablet 25 mg PO BEDTIME 10/18/20 02/17/24 12/12/20 History acetaminophen 325 mg tablet 650 mg PO Q4H PRN Fever Or Pain 03/03/21 02/17/24 Unknown History bisacodyl 10 mg rectal suppository 10 mg [place] DAILY PRN Constipation 03/03/21 02/17/24 Unknown History (Dulcolax (bisacodyl)) docusate sodium 100 mg capsule 100 mg PO DAILY 03/03/21 02/17/24 Unknown History polyethylene glycol 3350 17 gram 17 g PO DAILY PRN Constipation 03/03/21 02/17/24 Unknown History oral powder packet (Miralax) sennosides 8.6 mg tablet (senna) 17.2 mg PO BEDTIME 03/03/21 02/17/24 Unknown History ammonium lactate 12 % topical cream 1 appl topical BID Dry Skin 02/17/24 02/17/24 Unknown History apixaban 2.5 mg tablet (Eliquis) 2.5 mg PO BID 02/17/24 02/17/24 Unknown History dextromethorphan-guaifenesin 10 10 ml PO Q4H PRN Cough 02/17/24 02/17/24 Unknown History mg-100 mg/5 mL oral liquid sodium phosphates 19 gram-7 118 ml [place] DAILY PRN Constipation 02/17/24 02/17/24 Unknown History gram/118 mL enema (Fleet Enema) Physical Exam 2 Vital Signs: Vital Signs: Last Vital Signs Temp 96.9 F 02/22/24 07:23 Pulse 112 H 02/22/24 07:23 Resp 16 02/22/24 07:23 BP 104/62 02/22/24 07:23 Pulse Ox 96 02/22/24 07:23 O2 Del Method Nasal Cannula 02/22/24 07:23 O2 Flow Rate 2 02/22/24 07:23 BMI result Body Mass Index 21.1 Results Labs 02/22/24 07:39 02/22/24 07:39 Labs: Abnormal lab results 02/22/24 Range/Units 07:39 WBC 13.5 H (4.8-10.8) X10*3/uL Chloride 110 H (96-108) mmol/L Carbon Dioxide 20 L (22-29) mmol/L BUN 48 H (9-16) mg/dL Creatinine 1.67 H (0.5-1.4) mg/dL Short CBC 02/22/24 Range/Units 07:39 WBC 13.5 H (4.8-10.8) X10*3/uL Hgb 14.4 (14.0-18.0) g/dl Hct 44.3 (42.0-52.0) % Plt Count 212 (160-400) X10*3/uL BMP 02/22/24 07:39 Sodium 142 Potassium 4.1 Chloride 110 H Carbon Dioxide 20 L BUN 48 H Creatinine 1.67 H Calcium 8.9 Urine 02/17/24 Range/Units 12:14 Urine Color Yellow Urine Appearance Cloudy Urine pH 5.5 (5.0-9.0) Ur Specific [place] 1.015 (1.005-1.025) Urine Protein 30 (1+) H (Neg-Trace) mg/dL Urine Glucose (UA) Negative (Negative) mg/dL Imaging Abdomen CT scan report/results: report reviewed and image reviewed CT scan - pelvis: report reviewed and image reviewed US - kidney/bladder: report reviewed and image reviewed Assessment and Plan (1) LAUREN (acute kidney injury): Status: Acute (2) Hydronephrosis, right: Status: Acute (3) Ureteral stone: Status: Acute Plan Renal function is slowly improving recommend CT abd pelvis without IV contrast Reviewed CT -bilateral ureteral stones. Plan cystoscopy bilateral ureteral stents Procedures Date of Service Date of Service: 02/23/24
--- NOTE | 2024-02-22 10:21 | MHC.CM.PN ---
Per MD rounds patient not medically cleared for dc. RMOC updated. CM will continue to follow.
[2024-02-22 10:33] LABS: Appearance Urine Cloudy; Color Urine BROWN; Glucose Urine UA 100 mg/dL (Negative); Leukocyte Esterase Urine Moderate (2+) (Negative); PH 6.5 (5.0-9.0); UMIC TRIGGER UA YES; Urine Blood Large (3+) (Negative); Urine Ketones 15 mg/dL (Negative); Urine Protein 300 (3+) mg/dL (Neg-Trace)
[2024-02-22 10:39] LABS: Bacteria Urine 3+ (None Seen); Hyaline Casts Urine 0-2 /LPF (0-2); RBC Urine >20 /HPF (0-2); Squamous Epithelial Cell Urine 0-2 /HPF (0-2); WBC Urine >50 /HPF (0-5)
--- NOTE | 2024-02-22 11:07 | HO.PM.IMPN ---
Subjective Subjective Date of Service: 02/22/24 Interval History: weakness Physical Exam Vital Signs: Vital Signs: Last Vital Signs Temp 96.9 F 02/22/24 07:23 Pulse 112 H 02/22/24 07:23 Resp 16 02/22/24 07:23 BP 104/62 02/22/24 07:23 Pulse Ox 96 02/22/24 07:23 O2 Del Method Nasal Cannula 02/22/24 07:23 O2 Flow Rate 2 02/22/24 07:23 BMI result Body Mass Index 21.1 alert oriented times 3, frail, ill appearing lungs diminished at bases abd sof non tender brown urine from martinez Objective Data Active Medications Acetaminophen (Acetaminophen 325 Mg Tablet) 650 mg PO Q6H PRN PRN Reason: Pain, Mild (Pain Scale 1-3), fever or headache Last Admin: 02/21/24 19:22 Dose: 650 mg Documented By: RACHEL Apixaban (Apixaban 2.5 Mg Tablet) 2.5 mg PO BID REPLACED BY [facility] Last Admin: 02/22/24 08:01 Dose: 2.5 mg Documented By: SHIRLEY Benzonatate (Benzonatate 100 Mg Capsule) 100 mg PO TID PRN PRN Reason: Cough Last Admin: 02/17/24 23:41 Dose: 100 mg Documented By: LYSRd Calcium Carbonate (Calcium Carbonate 750 Mg Tab.Chew) 750 mg PO Q4H PRN PRN Reason: Heartburn Ceftriaxone Sodium (Ceftriaxone Sodium 1 Gm Vial) 1 gm IVPUSH Q24H REPLACED BY [facility] Last Admin: 02/21/24 12:40 Dose: 1 gm Documented By: FAITH Furosemide (Furosemide 20 Mg/2 Ml Vial) 20 mg IVPUSH DAILY REPLACED BY [facility]; Protocol Last Admin: 02/19/24 08:10 Dose: 20 mg Documented By: TIMMY Guaifenesin (Guaifenesin La 600 Mg Tab.Er.12h) 600 mg PO BID REPLACED BY [facility] Last Admin: 02/22/24 08:01 Dose: 600 mg Documented By: SHIRLEY Azithromycin 500 mg/ Sodium (Chloride) 250 mls @ 125 mls/hr IV Q24H REPLACED BY [facility] Last Infusion: 02/21/24 14:50 Dose: Infused Documented By: FAITH Magnesium Hydroxide (Milk Of Magnesia 30 Ml Oral.Susp) 30 ml PO DAILY PRN PRN Reason: Constipation Melatonin (Melatonin 3 Mg Tablet) 6 mg PO BEDTIME PRN PRN Reason: Insomnia Last Admin: 02/21/24 19:22 Dose: 6 mg Documented By: RACHEL Metoprolol Tartrate (Metoprolol Tartrate 25 Mg Tablet) 25 mg PO Q6H REPLACED BY [facility]; Protocol Last Admin: 02/22/24 08:01 Dose: 25 mg Documented By: SHIRLEY Ondansetron HCl (Ondansetron Hcl 4 Mg/2 Ml Vial) 4 mg IVPUSH Q8H PRN PRN Reason: Nausea and Vomiting Quetiapine Fumarate (Quetiapine Fumarate 25 Mg Tablet) 25 mg PO BID PRN PRN Reason: anxiety/restlessness Last Admin: 02/21/24 19:22 Dose: 25 mg Documented By: RACHEL Sodium Chloride (0.9 % Sodium Chloride Flush 3 Ml Syringe) 3 ml IVFLUSH QSHIFT REPLACED BY [facility] Last Admin: 02/22/24 08:01 Dose: 3 ml Documented By: SHIRLEY Labs 02/22/24 07:39 02/22/24 07:39 Labs: Laboratory Results - last 24 hr 02/22/24 02/22/24 07:39 10:00 MCV 90.4 MCH 29.4 MCHC 32.5 RDW 15.6 Plt Count 212 MPV 11.5 Absolute Nucleated RBC 0.000 Nucleated RBC % (auto) 0.0 Anion Gap 16 Estim Creat Clear Calc 28.3 Estimated GFR 39 Random Glucose 114 Calcium 8.9 Urine Color BROWN Urine Appearance Cloudy Urine pH 6.5 Ur Specific [place] 1.020 Urine Protein 300 (3+) H Urine Glucose (UA) 100 H Urine Ketones 15 Urine Blood Large (3+) H Urine Nitrite See Note Ur Leukocyte Esterase Moderate (2+) H Urine RBC >20 H Urine WBC >50 H Ur Squamous Epith Cells 0-2 Urine Bacteria 3+ Hyaline Casts 0-2 Assessment and Plan (1) Atrial fibrillation with RVR: Status: Acute (2) LAUREN (acute kidney injury): Status: Acute (3) Community acquired pneumonia: Status: Acute (4) Bilateral pleural effusion: Status: Acute (5) Acute on chronic systolic (congestive) heart failure: Status: Acute Plan 89M PMH of PAF on eliquis, PAD, CHF, CKD, HTN among others who presented to the hospital from SNF with increase weakness and fall. acute systolic CHF exacerbation and acute hypoxic respiratory failure and pleural effusion s/p iv lasix, now on hold for worsening creatinine likely related on presistent Afib and low stroke volume Echo showing low EF of 25-30% Cardiology input appreciated, failed amiodarone therapy, try Metoprolol, consider hospice pneumonia IV Azithromycin and Ceftriaxone Cough medicine UTI on Ceftriaxone negative culture, recheck LAUREN on CKD3 with metabolic acidosis and hematuria Cr of 1.8 US showing right sided hydronephrosis Urology consult Nephrology following martinez placed, check CT abd/pelvis PAF with RvR rate in 90s-110s continue Eliquis and Metoprolol, DCed Amiodarone Decreased Eliquis to 2.5 bid given his age and weight DVT PPx Eliquis Goals of care: patient not interested in [employer]/hospice at this time, would like to continue with conservative medical care with DNR/DNI, would also be a good canditate for palliative care. HCP - Yuniel Desir [phone] reason for continued hospitalization:hydro, hematuria Quality Stroke Does the patient have a stroke diagnosis?: No VTE Prior VTE?: No VTE Risk Level:: Medical - moderate - high VTE Device Contraindication: Treatment Not Indicated VTE Drug Contraindication: N/A - Med Ordered
[2024-02-22] MEDS: cefTRIAXone sodium 1 GM VIAL IVPUSH (11:52)
[2024-02-22] MEDS: Azithromycin 500 MG in 0.9 % Sodium Chloride 250 ML 125 MG IV (11:52)
--- NOTE | 2024-02-22 13:40 | PC.NURSE ---
1030 , martinez cath placed per MD order , 600 mls brown urine draining , md aware , UA sent to lab
[2024-02-22 13:59] LABS: Myeloperoxidase Antibody <1.0 AI; Proteinase 3 PR3 Antibodies <1.0 AI
[2024-02-22] MEDS: QUEtiapine Fumarate 25 MG TABLET PO (19:37)
[2024-02-22] MEDS: Melatonin 3 MG TABLET 6 MG PO (19:37)
[2024-02-22] MEDS: Acetaminophen 325 MG TABLET 650 MG PO (19:37)
[2024-02-22 22:39] LABS: Complement C3 89 mg/dL
[2024-02-23] VITALS (8 sets, daily range): BP systolic 100–125; BP diastolic 57–80; PULSE 80–130; RESP 14–26; TEMP 36–36.7; O2SAT 89–99
[2024-02-23] MEDS: Metoprolol Tartrate 25 MG TABLET PO ×4 (04:08→20:44)
[2024-02-23 06:50] LABS: Anion Gap 18 (12-20); Blood Urea Nitrogen 43 mg/dL (9-16); Calcium 8.7 mg/dL (8.4-10.2); Carbon Dioxide 17 mmol/L (22-29); Chloride 111 mmol/L (96-108); Creatinine Clr Calc Pharmacy 30.5; Estimated Glomerular Filt Rate 42; Glucose Fasting 102 mg/dL (60-99); Sodium 142 mmol/L (135-145)
[2024-02-23 07:00] LABS: Hemoglobin 13.8 g/dl (14.0-18.0); Mean Corpuscular HGB Conc 30.7 g/dl (31.0-36.0); Mean Corpuscular Hemoglobin 28.9 pg (27.0-33.0); Mean Corpuscular Volume 94.3 fL (80.0-98.0); Mean Platelet Volume 11.7 fL (9.4-12.4); Platelet Count 160 X10*3/uL (160-400); Red Blood Count 4.77 X10*6/uL (4.60-5.80); Red Cell Distribution Width 15.9 % (11.0-16.0); White Blood Count 10.9 X10*3/uL (4.8-10.8)
[2024-02-23] MEDS: 0.9 % Sodium Chloride Flush 3 ML SYRINGE IVFLUSH ×3 (08:09→20:45)
--- NOTE | 2024-02-23 09:30 | P.PNNP_ITS ---
Subjective Subjective Date of Service: 02/23/24 Interval history: 89 y/o with a medical history of paroxysmal afib, PAD, CHF, HTN, CKD reportedly does not see a kidney doctor as outpatient. presented 02/16 with increased weakness, had fallen. Being treated for PNA, UTI and CHF exacerbation Nephrology consulted for LAUREN last baseline creatinine on file from 03/2021 was 1.39 creatinine 02/16 was 1.77, 02/17 was 1.62, . was 1.82, 02/19 2.19, 02/20 1.80, 02/21 is 1.67 UA +1 protein, +3 blood (3-5 RBCs), 3+leukocyte esterace no renal imaging this admission urine protein/creatinine ratio 1.41 02/19 was receiving furosemide 20mg IVP daily, on hold and creatinine trending down one episode of hypoperfusion on 02/17 BP 88/58 UOP 550mL/last 24 horus Physical Exam 2 Vital Signs: Vital Signs: Last Vital Signs Temp 96.8 F 02/23/24 07:17 Pulse 97 02/23/24 07:17 Resp 16 02/23/24 07:17 BP 114/70 02/23/24 07:17 Pulse Ox 98 02/23/24 07:17 O2 Del Method Nasal Cannula 02/23/24 07:17 O2 Flow Rate 2 02/23/24 07:17 BMI result Body Mass Index 21.1 Const: General: no acute distress, alert and awake HEENT: Mouth: moist mucous membranes abnormal (dry) Resp: Effort & Inspection: normal respiratory effort and able to speak in complete sentences Auscultation: clear to auscultation bilaterally Cardio: Rate: regular rate Rhythm: regular rhythm Heart sounds: S1 normal heart sound present and S2 normal heart sound present GI: Palpation (GI): Soft to palpation and nontender : General: Yes no CVA tenderness Back/Spine/Pelvis: Back: no CVA tenderness Skin: Other: lower extremities michell Lesions: no lesions Rashes: no rashes Extrem: General: Yes edema (trace BLE pitting edema) Objective Data Labs 02/23/24 05:41 02/23/24 05:41 Labs: Laboratory Results - last 24 hr 02/21/24 02/21/24 02/23/24 05:44 09:32 05:41 WBC 10.9 H RBC 4.77 Hgb 13.8 L Hct 45.0 MCV 94.3 MCH 28.9 MCHC 30.7 L RDW 15.9 Plt Count 160 MPV 11.7 Absolute Nucleated RBC 0.000 Nucleated RBC % (auto) 0.0 Sodium 142 Potassium 4.0 Chloride 111 H Carbon Dioxide 17 L Anion Gap 18 BUN 43 H Creatinine 1.55 H Estim Creat Clear Calc 30.5 Estimated GFR 42 Fasting Glucose 102 H Calcium 8.7 Urine Immunofixation SEE NOTE Proteinase 3 (PR3) Ab <1.0 Myeloperoxidase Ab <1.0 Complement C3 89 Complement C4 14 Microbiology Microbiology Results: Microbiology 02/17/24 12:37 Blood - Venous Blood Culture - Final No growth after 5 days. 02/17/24 12:24 Blood - Venous Blood Culture - Final No growth after 5 days. 02/21/24 09:32 Urine Other - Kidney Left Urine Culture - Preliminary Culture in progress. 02/17/24 Unknown Urine clean catch - Clean Catch Midstream Urine Culture - Final Procedures Date of Service Date of Service: 02/23/24 Assessment & Plan Assessment and plan (1) LAUREN (acute kidney injury): Status: Acute (2) Acute kidney injury superimposed on CKD: Status: Acute Plan Pt with LAUREN on CKD likely component of tubular injury as patient had reduced PO intake prior to admission, in setting of diuresis Renal function continues to improve- recommend continuing to hold diuresis also has RBCs in urine chronically- ANCA unremarkable, complements normal, urine immunofixation without presence of monoclonal proteins serum immunofixation pending urine protein/creatinine ratio elevated at 1.41 repeat urine culture in progress renal ultrasound 02/19 shows echogenic parenchyma of right kidney as well as moderate to severe right hydronephrosis and proximal hydroureter. Limited evaluation of left kidney, which is smaller than right. Enlarge prostate. urology has been consulted, plan for cystoscopy and bilateral ureteral stents today recommend check blood pressures and monitor I&O closely recommend avoid nephrotoxins recommend daily electrolyte and renal function studies continue supportive care, will continue to follow Discussed with Dr Pena Time Spent With Patient Time: Total time managing care of this patient today ____ minutes. Progress Note: Quality Stroke Does the patient have a stroke diagnosis?: No
--- NOTE | 2024-02-23 09:43 | P.PNIM_ITS ---
Subjective Subjective Date of Service: 02/23/24 Interval History: weakness Physical Exam 2 Vital Signs: Vital Signs: Last Vital Signs Temp 96.8 F 02/23/24 07:17 Pulse 97 02/23/24 07:17 Resp 16 02/23/24 07:17 BP 114/70 02/23/24 07:17 Pulse Ox 98 02/23/24 07:17 O2 Del Method Nasal Cannula 02/23/24 07:17 O2 Flow Rate 2 02/23/24 07:17 BMI result Body Mass Index 21.1 alert oriented times 3, frail, ill appearing lungs diminished at bases abd sof non tender brown urine from f Objective Data Active Medications Acetaminophen (Acetaminophen 325 Mg Tablet) 650 mg PO Q6H PRN PRN Reason: Pain, Mild (Pain Scale 1-3), fever or headache Last Admin: 02/22/24 19:37 Dose: 650 mg Documented By: RACHEL Apixaban (Apixaban 2.5 Mg Tablet) 2.5 mg PO BID [facility] Last Admin: 02/23/24 08:02 Dose: Not Given Documented By: SHIRLEY Non-Admin Reason: NPO Benzonatate (Benzonatate 100 Mg Capsule) 100 mg PO TID PRN PRN Reason: Cough Last Admin: 02/17/24 23:41 Dose: 100 mg Documented By: LYSRd Calcium Carbonate (Calcium Carbonate 750 Mg Tab.Chew) 750 mg PO Q4H PRN PRN Reason: Heartburn Ceftriaxone Sodium (Ceftriaxone Sodium 1 Gm Vial) 1 gm IVPUSH Q24H [facility] Last Admin: 02/22/24 11:52 Dose: 1 gm Documented By: SHIRLEY Guaifenesin (Guaifenesin La 600 Mg Tab.Er.12h) 600 mg PO BID [facility] Last Admin: 02/23/24 08:02 Dose: Not Given Documented By: SHIRLEY Non-Admin Reason: NPO Azithromycin 500 mg/ Sodium (Chloride) 250 mls @ 125 mls/hr IV Q24H [facility] Last Infusion: 02/22/24 14:15 Dose: Infused Documented By: SHIRLEY Magnesium Hydroxide (Milk Of Magnesia 30 Ml Oral.Susp) 30 ml PO DAILY PRN PRN Reason: Constipation Melatonin (Melatonin 3 Mg Tablet) 6 mg PO BEDTIME PRN PRN Reason: Insomnia Last Admin: 02/22/24 19:37 Dose: 6 mg Documented By: RACHEL Metoprolol Tartrate (Metoprolol Tartrate 25 Mg Tablet) 25 mg PO Q6H [facility]; Protocol Last Admin: 02/23/24 08:06 Dose: 25 mg Documented By: SHIRLEY Ondansetron HCl (Ondansetron Hcl 4 Mg/2 Ml Vial) 4 mg IVPUSH Q8H PRN PRN Reason: Nausea and Vomiting Quetiapine Fumarate (Quetiapine Fumarate 25 Mg Tablet) 25 mg PO BID PRN PRN Reason: anxiety/restlessness Last Admin: 02/22/24 19:37 Dose: 25 mg Documented By: RACHEL Sodium Chloride (0.9 % Sodium Chloride Flush 3 Ml Syringe) [facility] Last Admin: 02/23/24 08:09 Dose: 3 ml Documented By: SHIRLEY Labs 02/23/24 05:41 02/23/24 05:41 Labs: Laboratory Results - last 24 hr 02/21/24 02/21/24 02/22/24 05:44 09:32 10:00 MCV MCH MCHC RDW Plt Count MPV Absolute Nucleated RBC Nucleated RBC % (auto) Anion Gap Estim Creat Clear Calc Estimated GFR Fasting Glucose Calcium Urine Color BROWN Urine Appearance Cloudy Urine pH 6.5 Ur Specific [place] 1.020 Urine Protein 300 (3+) H Urine Glucose (UA) 100 H Urine Ketones 15 Urine Blood Large (3+) H Urine Nitrite See Note Ur Leukocyte Esterase Moderate (2+) H Urine RBC >20 H Urine WBC >50 H Ur Squamous Epith Cells 0-2 Urine Bacteria 3+ Hyaline Casts 0-2 Urine Immunofixation SEE NOTE Proteinase 3 (PR3) Ab <1.0 Myeloperoxidase Ab <1.0 Complement C3 89 Complement C4 14 02/23/24 05:41 MCV 94.3 MCH 28.9 MCHC 30.7 L RDW 15.9 Plt Count 160 MPV 11.7 Absolute Nucleated RBC 0.000 Nucleated RBC % (auto) 0.0 Anion Gap 18 Estim Creat Clear Calc 30.5 Estimated GFR 42 Fasting Glucose 102 H Calcium 8.7 Urine Color Urine Appearance Urine pH Ur Specific [place] Urine Protein Urine Glucose (UA) Urine Ketones Urine Blood Urine Nitrite Ur Leukocyte Esterase Urine RBC Urine WBC Ur Squamous Epith Cells Urine Bacteria Hyaline Casts Urine Immunofixation Proteinase 3 (PR3) Ab Myeloperoxidase Ab Complement C3 Complement C4 Microbiology Microbiology Results: Microbiology 02/17/24 12:37 Blood Culture - Final Blood - Venous No growth after 5 days. 02/17/24 12:24 Blood Culture - Final Blood - Venous No growth after 5 days. 02/21/24 09:32 Urine Culture - Preliminary Urine Other - Kidney Left Culture in progress. Assessment and Plan (1) Atrial fibrillation with RVR: Status: Acute (2) LAUREN (acute kidney injury): Status: Acute (3) Community acquired pneumonia: Status: Acute (4) Bilateral pleural effusion: Status: Acute (5) Acute on chronic systolic (congestive) heart failure: Status: Acute Plan 89M PMH of PAF on eliquis, PAD, CHF, CKD, HTN among others who presented to the hospital from SNF with increase weakness and fall. acute systolic CHF exacerbation and acute hypoxic respiratory failure and pleural effusion s/p iv lasix, now on hold for worsening creatinine likely related on presistent Afib and low stroke volume Echo showing low EF of 25-30% Cardiology input appreciated, failed amiodarone therapy, try Metoprolol, consider hospice pneumonia IV Azithromycin and Ceftriaxone UTI on Ceftriaxone negative culture, recheck LAUREN on CKD3 with metabolic acidosis and hematuria Cr of 1.8 US showing right sided hydronephrosis Urology consult Nephrology following martinez placed, plan for bilateral ureteral stents today PAF with RvR rate in 90s-110s continue Eliquis and Metoprolol, DCed Amiodarone Decreased Eliquis to 2.5 bid given his age and weight DVT PPx Eliquis Goals of care: patient not interested in [employer]/hospice at this time, would like to continue with conservative medical care with DNR/DNI, would also be a good canditate for palliative care. HCP - Yuniel Desir [phone] reason for continued hospitalization:hydro, hematuria Quality Stroke Does the patient have a stroke diagnosis?: No VTE Prior VTE?: No VTE Risk Level:: Medical - moderate - high VTE Device Contraindication: Treatment Not Indicated VTE Drug Contraindication: N/A - Med Ordered
[2024-02-23] MEDS: Azithromycin 500 MG in 0.9 % Sodium Chloride 250 ML 125 MG IV (12:11)
[2024-02-23] MEDS: cefTRIAXone sodium 1 GM VIAL IVPUSH (12:11)
[2024-02-23] MEDS: Dextrose 5 % and 0.9 % NaCl 1,000 ML 50 ML IVCONT (12:19)
[2024-02-23 13:43] LABS: IgA 444 mg/dL (70-320); IgG 1108 mg/dL (600-1540); IgM 98 mg/dL (50-300)
--- NOTE | 2024-02-23 13:43 | P.CDIM_ITS ---
PROVIDER RESPONSE TEXT: To clarify, the appropriate diagnosis supported by the clinical indicators: Acute QUERY TEXT: PHYSICIAN'S DOCUMENTATION REQUEST Date of Query: 02/23/2024 12:14 PM EST Patient Name: Radhames Daugherty Admit Date: 02/17/2024 Dear Paulino Ferraro MD, A review of the medical record indicates additional documentation may be needed. Please review below and update the documentation accordingly. Clinical Indicators: Progress notes: LAUREN on CKD 3 with metabolic acidosis and hematuria. Clarify which of the following accurately represents the acuity of the Metabolic acidosis: Possible options might include: Acute Chronic Other (explain) Clinically unable to determine (explain) Thank you, Franchesca Martinez, CCS, CDIS Use of terms such as suspected, likely, concern for, or probable (associated with a specific diagnosi s that is being evaluated, monitored, or treated as if it exists) are acceptable and can be coded in the inpatient se tting, when documented at the time of discharge. Please use your independent medical judgment in providing your response. THIS QUERY IS PART OF THE PERMANENT MEDICAL RECORD
--- NOTE | 2024-02-23 14:51 | PC.NURSE ---
Pt tachypneic, and desatted to 84% on 2L NC. HR 130. MD notified and reported to bedside.
--- NOTE | 2024-02-23 14:54 | W.MHC.ACPN ---
Advanced Care Planning Note Advanced Care Planning Note Discussed with: patient and family member(s) Time spent (in minutes): 18 Narrative: d/w patient at bedside then with HCP over phone regarding diagnosis of acute hypoxia, chf, pneumonia. discussed worsening hypoxia and sob. patient would like to priotize comfort over length of life, will therefore use morphine for work of breathing. continue conservative care, DNR/DNI for now, if patient continues to decline likely to transition to [facility] Problems Discussed (1) LARUEN (acute kidney injury): (2) Acute kidney injury superimposed on CKD:
[2024-02-23] MEDS: Morphine Sulfate 2 MG/ML CARTRIDGE IVPUSH (15:04)
[2024-02-23] MEDS: Furosemide 40 MG/4 ML VIAL IVPUSH (16:05)
[2024-02-23] MEDS: guaiFENesin LA 600 MG TAB.ER.12H PO (20:44)
[2024-02-23] MEDS: Acetaminophen 325 MG TABLET 650 MG PO (20:44)
[2024-02-23] MEDS: Melatonin 3 MG TABLET 6 MG PO (20:45)
[2024-02-23] MEDS: QUEtiapine Fumarate 25 MG TABLET PO (20:45)
[2024-02-23] MEDS: Apixaban 2.5 MG TABLET PO (20:45)
[2024-02-24] VITALS (9 sets, daily range): BP systolic 102–117; BP diastolic 56–79; PULSE 82–100; RESP 14–20; TEMP 36.3–37.6; O2SAT 93–100
[2024-02-24] MEDS: Metoprolol Tartrate 25 MG TABLET PO ×4 (03:58→20:58)
[2024-02-24 07:04] LABS: Anion Gap 15 (12-20); Blood Urea Nitrogen 45 mg/dL (9-16); Calcium 8.6 mg/dL (8.4-10.2); Carbon Dioxide 24 mmol/L (22-29); Chloride 109 mmol/L (96-108); Creatinine Clr Calc Pharmacy 27.1; Estimated Glomerular Filt Rate 37; Glucose Fasting 112 mg/dL (60-99); Potassium 3.7 mmol/L (3.3-5.1); Sodium 144 mmol/L (135-145)
[2024-02-24 07:08] LABS: Hemoglobin 13.4 g/dl (14.0-18.0); Mean Corpuscular HGB Conc 32.7 g/dl (31.0-36.0); Mean Corpuscular Hemoglobin 29.5 pg (27.0-33.0); Mean Corpuscular Volume 90.3 fL (80.0-98.0); Mean Platelet Volume 11.2 fL (9.4-12.4); Platelet Count 175 X10*3/uL (160-400); Red Blood Count 4.54 X10*6/uL (4.60-5.80); Red Cell Distribution Width 15.5 % (11.0-16.0); White Blood Count 10.4 X10*3/uL (4.8-10.8)
--- NOTE | 2024-02-24 08:20 | P.PNNP_ITS ---
Subjective Subjective Date of Service: 02/24/24 Interval history: 89 y/o with a medical history of paroxysmal afib, PAD, CHF, HTN, CKD reportedly does not see a kidney doctor as outpatient. presented 02/16 with increased weakness, had fallen. Being treated for PNA, UTI and CHF exacerbation Nephrology consulted for LAUREN last baseline creatinine on file from 03/2021 was 1.39 creatinine 02/16 was 1.77, 02/17 was 1.62, . was 1.82, 02/19 2.19, 02/20 1.80, 02/21 is 1.67, 02/22 1.55 creatinine increased today 02/23 at 1.74 UA +1 protein, +3 blood (3-5 RBCs), 3+leukocyte esterace no renal imaging this admission urine protein/creatinine ratio 1.41 02/19 was receiving furosemide 20mg IVP daily, on hold and creatinine trending down one episode of hypoperfusion on 02/17 BP 88/58 UOP 550mL/last 24 horus pt has been NPO for planned cystoscopy procedure/stent placement - hypoxia/tachypnea 02/22, 40mg IVP furosemide daily due to worsening pericardial effusions and pulmonary edema on chest xray 02/22 Physical Exam 2 Vital Signs: Vital Signs: Last Vital Signs Temp 98.1 F 02/24/24 07:25 Pulse 100 02/24/24 07:25 Resp 14 02/24/24 07:25 BP 113/79 02/24/24 07:25 Pulse Ox 95 02/24/24 07:25 O2 Del Method Nasal Cannula 02/24/24 07:25 O2 Flow Rate 4 02/24/24 07:25 BMI result Body Mass Index 21.1 Const: General: no acute distress, alert and awake HEENT: Mouth: moist mucous membranes abnormal (dry) Resp: Effort & Inspection: normal respiratory effort and able to speak in complete sentences Auscultation: crackles Cardio: Rate: regular rate Rhythm: regular rhythm Heart sounds: S1 normal heart sound present and S2 normal heart sound present GI: Palpation (GI): Soft to palpation and nontender : General: Yes no CVA tenderness Back/Spine/Pelvis: Back: no CVA tenderness Skin: Other: lower extremities michell Lesions: no lesions Rashes: no rashes Extrem: General: Yes edema (trace BLE pitting edema) Objective Data Labs 02/24/24 05:22 02/24/24 05:22 Labs: Laboratory Results - last 24 hr 02/21/24 02/24/24 05:44 05:22 WBC 10.4 RBC 4.54 L Hgb 13.4 L Hct 41.0 L MCV 90.3 MCH 29.5 MCHC 32.7 RDW 15.5 Plt Count 175 MPV 11.2 Absolute Nucleated RBC 0.000 Nucleated RBC % (auto) 0.0 Sodium 144 Potassium 3.7 Chloride 109 H Carbon Dioxide 24 Anion Gap 15 BUN 45 H Creatinine 1.74 H Estim Creat Clear Calc 27.1 Estimated GFR 37 Fasting Glucose 112 H Calcium 8.6 Total Creatine Kinase 48 IgG Total 1108 IgA Total 444 H IgM 98 REYNALDO Interpretation SEE NOTE Microbiology Microbiology Results: Microbiology 02/21/24 09:32 Urine Other - Kidney Left Urine Culture - Final 02/17/24 12:37 Blood - Venous Blood Culture - Final No growth after 5 days. 02/17/24 12:24 Blood - Venous Blood Culture - Final No growth after 5 days. 02/17/24 Unknown Urine clean catch - Clean Catch Midstream Urine Culture - Final Procedures Date of Service Date of Service: 02/24/24 Assessment & Plan Assessment and plan (1) LAUREN (acute kidney injury): Status: Acute (2) Acute kidney injury superimposed on CKD: Status: Acute Plan Pt with LAUREN on CKD likely component of tubular injury as patient had reduced PO intake prior to admission, in setting of diuresis creatinine slightly worse today, likely result related to diuresis- will tolerate some increase in creatinine for diuresis if clinically hypovolemic ANCA unremarkable, complements normal, serum and urine immunofixation without presence of monoclonal proteins urine protein/creatinine ratio elevated at 1.41 repeat urine culture from 02/20 no growth renal ultrasound 02/19 shows echogenic parenchyma of right kidney as well as moderate to severe right hydronephrosis and proximal hydroureter. Limited evaluation of left kidney, which is smaller than right. Enlarge prostate. urology has been consulted, plan for cystoscopy and bilateral ureteral stents on hold due to hypoxia/tachypnea yesterday recommend check blood pressures and monitor I&O closely recommend avoid nephrotoxins recommend daily electrolyte and renal function studies continue supportive care, will continue to follow Discussed with Dr Pena Time Spent With Patient Time: Total time managing care of this patient today ____ minutes. Progress Note: Quality Stroke Does the patient have a stroke diagnosis?: No
[2024-02-24] MEDS: Furosemide 40 MG/4 ML VIAL IVPUSH (08:33)
[2024-02-24] MEDS: 0.9 % Sodium Chloride Flush 3 ML SYRINGE IVFLUSH ×3 (08:33→21:02)
--- NOTE | 2024-02-24 09:38 | HO.PM.IMPN ---
Subjective Subjective Date of Service: 02/24/24 Interval History: still very weak, feels less sob Physical Exam Vital Signs: Vital Signs: Last Vital Signs Temp 98.1 F 02/24/24 07:25 Pulse 100 02/24/24 07:25 Resp 14 02/24/24 07:25 BP 113/79 02/24/24 07:25 Pulse Ox 95 02/24/24 07:25 O2 Del Method Nasal Cannula 02/24/24 07:25 O2 Flow Rate 4 02/24/24 07:25 BMI result Body Mass Index 21.1 lethargic, oriented x3, frail appearing, ill-appearing, less tachypneic than previous day, less accessory muscles Decreased air movement bilaterally Urine has cleared Objective Data Active Medications Acetaminophen (Acetaminophen 325 Mg Tablet) 650 mg PO Q6H PRN PRN Reason: Pain, Mild (Pain Scale 1-3), fever or headache Last Admin: 02/23/24 20:44 Dose: 650 mg Documented By: RACHEL Apixaban (Apixaban 2.5 Mg Tablet) 2.5 mg PO BID [facility] Last Admin: 02/24/24 07:55 Dose: Not Given Documented By: FAITH Non-Admin Reason: Physician Held Med Benzonatate (Benzonatate 100 Mg Capsule) 100 mg PO TID PRN PRN Reason: Cough Last Admin: 02/17/24 23:41 Dose: 100 mg Documented By: BRENDEN Calcium Carbonate (Calcium Carbonate 750 Mg Tab.Chew) 750 mg PO Q4H PRN PRN Reason: Heartburn Ceftriaxone Sodium (Ceftriaxone Sodium 1 Gm Vial) 1 gm IVPUSH Q24H [facility] Last Admin: 02/23/24 12:11 Dose: 1 gm Documented By: FAITH Furosemide (Furosemide 40 Mg/4 Ml Vial) 40 mg IVPUSH DAILY [facility]; Protocol Last Admin: 02/24/24 08:33 Dose: 40 mg Documented By: FAITH Guaifenesin (Guaifenesin La 600 Mg Tab.Er.12h) 600 mg PO BID [facility] Last Admin: 02/24/24 08:39 Dose: Not Given Documented By: FAITH Non-Admin Reason: unable to crush/swallow Azithromycin 500 mg/ Sodium (Chloride) 250 mls @ 125 mls/hr IV Q24H [facility] Last Infusion: 02/23/24 14:14 Dose: Infused Documented By: FAITH Magnesium Hydroxide (Milk Of Magnesia 30 Ml Oral.Susp) 30 ml PO DAILY PRN PRN Reason: Constipation Melatonin (Melatonin 3 Mg Tablet) 6 mg PO BEDTIME PRN PRN Reason: Insomnia Last Admin: 02/23/24 20:45 Dose: 6 mg Documented By: RACHEL Metoprolol Tartrate (Metoprolol Tartrate 25 Mg Tablet) 25 mg PO Q6H [facility]; Protocol Last Admin: 02/24/24 08:33 Dose: 25 mg Documented By: FAITH Morphine Sulfate (Morphine Sulfate 2 Mg/Ml Cartridge) 2 mg IVPUSH Q2H PRN; Protocol PRN Reason: work of breathing Last Admin: 02/23/24 15:04 Dose: 2 mg Documented By: FAITH Ondansetron HCl (Ondansetron Hcl 4 Mg/2 Ml Vial) 4 mg IVPUSH Q8H PRN PRN Reason: Nausea and Vomiting Quetiapine Fumarate (Quetiapine Fumarate 25 Mg Tablet) 25 mg PO BID PRN PRN Reason: anxiety/restlessness Last Admin: 02/23/24 20:45 Dose: 25 mg Documented By: RACHEL Sodium Chloride (0.9 % Sodium Chloride Flush 3 Ml Syringe) 3 ml IVFLUSH QSHIFT [facility] Last Admin: 02/24/24 08:33 Dose: 3 ml Documented By: FAITH Labs 02/24/24 05:22 02/24/24 05:22 Labs: Laboratory Results - last 24 hr 02/21/24 02/24/24 05:44 05:22 MCV 90.3 MCH 29.5 MCHC 32.7 RDW 15.5 Plt Count 175 MPV 11.2 Absolute Nucleated RBC 0.000 Nucleated RBC % (auto) 0.0 Anion Gap 15 Estim Creat Clear Calc 27.1 Estimated GFR 37 Fasting Glucose 112 H Calcium 8.6 Total Creatine Kinase 48 IgG Total 1108 IgA Total 444 H IgM 98 REYNALDO Interpretation SEE NOTE Microbiology Microbiology Results: Microbiology 02/21/24 09:32 Urine Culture - Final Urine Other - Kidney Left Assessment and Plan (1) Atrial fibrillation with RVR: Status: Acute (2) LAUREN (acute kidney injury): Status: Acute (3) Community acquired pneumonia: Status: Acute (4) Bilateral pleural effusion: Status: Acute (5) Acute on chronic systolic (congestive) heart failure: Status: Acute Plan 89M PMH of PAF on eliquis, PAD, CHF, CKD, HTN among others who presented to the hospital from SNF with increase weakness and fall. acute systolic CHF exacerbation and acute hypoxic respiratory failure and pleural effusion cxr with worsening edema and worsening hypoxia, restarted on iv lasix, montior creatinine closely likely related on presistent Afib and low stroke volume Echo showing low EF of 25-30% Cardiology input appreciated, failed amiodarone therapy, try Metoprolol, consider hospice patient not interested in thoracentesis for bilateral effusions morphine as needed for work of breathing pneumonia IV Azithromycin and Ceftriaxone UTI completed ceftriaxone course, urine culture mixed gricelda LAUREN on CKD3 with metabolic acidosis and hematuria US showing right sided hydronephrosis Urology consult Nephrology following martinez placed, plan for bilateral ureteral stents deferred due to worsening respiratory status PAF with RvR rate in 90s-110s continue Eliquis and Metoprolol, DCed Amiodarone Decreased Eliquis to 2.5 bid given his age and weight - currently on hold for possible interventions DVT PPx Eliquis Goals of care: patient not interested in [employer]ER/hospice at this time, would like to continue with conservative medical care with DNR/DNI, would also be a good canditate for palliative care. HCP - Yuniel Desir [phone] reason for continued hospitalization: worsening hypoxia Quality Stroke Does the patient have a stroke diagnosis?: No VTE Prior VTE?: No VTE Risk Level:: Medical - moderate - high VTE Device Contraindication: Treatment Not Indicated VTE Drug Contraindication: N/A - Med Ordered
[2024-02-24] MEDS: cefTRIAXone sodium 1 GM VIAL IVPUSH (11:35)
[2024-02-24] MEDS: Azithromycin 500 MG in 0.9 % Sodium Chloride 250 ML 125 MG IV (11:35)
--- NOTE | 2024-02-24 13:04 | MHC.CM.PN ---
EMR REVIEWED AND PER MD ROUNDS, PT IS NOT MEDICALLY CLEARED FOR DC BACK TO [facility]. PT CONTINUES TO BE WEAK AND SOB. CM WILL CONTINUE TO FOLLOW FOR ANY CHANGE TO DC PLAN/NEEDS.
--- NOTE | 2024-02-24 14:19 | MHC.SL.SWA ---
Speech Pathologist Impression: Risk of Aspiration, Oropharyngeal Dysphagia Dysphasia Diet Status: Downgrade to NDD2/HTL Liquid Consistency and Strategies for Safe Swallow: Liquid Intake Recommendation: Honey Thick Liquid Intake Strategies: Small Sips No Straws Solid Food Consistency: Dietary Recommendations: Grnd/Mech Altered (NDD2) Additional Modifications to Solid Foods: Recommend DOWNGRADE to GROUND/MECH ALTERED (NDD2) solids and HONEY THICK liquids, pills CRUSHED in PUREE. Standard aspiration precautions & direct supervision at meal time. Oral Medication Intake: Crushed with Puree Please contact the pharmacy regarding appropriate crushable or liquid drug formulations that are available whenever modified delivery is recommended. Compensatory Strategies and Precautions to be Taken for Safe Swallow: Sitting Upright (90 deg) No Straw Small Bites and Sips Alternate Liquids/Solids Rate of Ingestion Change Oral Check Avoid Specific Foods Supervision While Eating and Drinking for Safe Swallow: Total Supervision (1:1) Foods to Avoid: Hard solids, mixed consistencies Swallowing Recommended Treatments: Compens. Strategy Educat. Recommendation for Speech: Inpatient Speech Therapy Speech Therapy through Rehab Facility Comment: [employer] MACHINE OPERATOR will continue to follow during inpatient stay. Patient w/ chronic dysphagia, will likely need continued ST at the next level of care. Frequency/Duration: M-F PRN Date Range for Service Req: Timeline to reassess: PRN Scientific Database Curator Clinican/Clinical Fellow: No Supervisory Statement: I have reviewed and agree with the student/clinical fellow's documentation: N/A Speech Language Pathologist: Stephanie Kelly M.A., [facility] MACHINE OPERATOR
--- NOTE | 2024-02-24 17:53 | PC.NURSE ---
Pt O2 sat 100% on 4L, tapered to 3L and rechecked, tolerating well still satting 100%
--- NOTE | 2024-02-24 17:58 | HO.SKINPHOTO ---
Right upper buttock non-blanchable, breakdown
--- NOTE | 2024-02-24 18:02 | PC.NURSE ---
Wound consulted secondary to R upper non-blanchable area to buttock, allevyn applied
[2024-02-25] VITALS (7 sets, daily range): BP systolic 104–130; BP diastolic 62–89; PULSE 83–102; RESP 17–20; TEMP 36.1–37; O2SAT 96–100
[2024-02-25] MEDS: Metoprolol Tartrate 25 MG TABLET PO ×4 (03:30→19:50)
[2024-02-25 07:06] LABS: Hematocrit 44.9 % (42.0-52.0); Hemoglobin 14.2 g/dl (14.0-18.0); Mean Corpuscular HGB Conc 31.6 g/dl (31.0-36.0); Mean Corpuscular Hemoglobin 28.8 pg (27.0-33.0); Mean Corpuscular Volume 91.1 fL (80.0-98.0); Mean Platelet Volume 11.1 fL (9.4-12.4); Platelet Count 181 X10*3/uL (160-400); Red Blood Count 4.93 X10*6/uL (4.60-5.80); Red Cell Distribution Width 15.5 % (11.0-16.0); White Blood Count 8.8 X10*3/uL (4.8-10.8)
[2024-02-25 07:35] LABS: Anion Gap 16 (12-20); Blood Urea Nitrogen 39 mg/dL (9-16); Calcium 8.6 mg/dL (8.4-10.2); Carbon Dioxide 27 mmol/L (22-29); Chloride 108 mmol/L (96-108); Creatinine Clr Calc Pharmacy 28.6; Estimated Glomerular Filt Rate 39; Glucose Fasting 114 mg/dL (60-99); Potassium 3.6 mmol/L (3.3-5.1); Sodium 147 mmol/L (135-145)
[2024-02-25] MEDS: Furosemide 40 MG/4 ML VIAL IVPUSH (08:09)
[2024-02-25] MEDS: Dextrose 5 % 1,000 ML 50 ML IVCONT (08:09)
[2024-02-25] MEDS: 0.9 % Sodium Chloride Flush 3 ML SYRINGE IVFLUSH (08:09)
--- NOTE | 2024-02-25 08:58 | HO.PM.IMPN ---
Subjective Subjective Date of Service: 02/25/24 Interval History: still very weak, feels less sob Physical Exam Vital Signs: Vital Signs: Last Vital Signs Temp 97.1 F 02/25/24 07:31 Pulse 86 02/25/24 07:31 Resp 18 02/25/24 07:31 BP 129/62 02/25/24 07:31 Pulse Ox 100 02/25/24 07:31 O2 Del Method Room Air 02/25/24 07:31 O2 Flow Rate 4 02/25/24 03:35 BMI result Body Mass Index 21.1 lethargic, oriented x3, frail appearing, ill-appearing, less tachypneic than previous day, less accessory muscles Decreased air movement bilaterally Urine has cleared Objective Data Active Medications Acetaminophen (Acetaminophen 325 Mg Tablet) 650 mg PO Q6H PRN PRN Reason: Pain, Mild (Pain Scale 1-3), fever or headache Last Admin: 02/23/24 20:44 Dose: 650 mg Documented By: RACHEL Apixaban (Apixaban 2.5 Mg Tablet) 2.5 mg PO BID [facility] Last Admin: 02/24/24 07:55 Dose: Not Given Documented By: FAITH Non-Admin Reason: Physician Held Med Benzonatate (Benzonatate 100 Mg Capsule) 100 mg PO TID PRN PRN Reason: Cough Last Admin: 02/17/24 23:41 Dose: 100 mg Documented By: BRENDEN Calcium Carbonate (Calcium Carbonate 750 Mg Tab.Chew) 750 mg PO Q4H PRN PRN Reason: Heartburn Ceftriaxone Sodium (Ceftriaxone Sodium 1 Gm Vial) 1 gm IVPUSH Q24H [facility] Last Admin: 02/24/24 11:35 Dose: 1 gm Documented By: FAITH Furosemide (Furosemide 40 Mg/4 Ml Vial) 40 mg IVPUSH DAILY [facility]; Protocol Last Admin: 02/25/24 08:09 Dose: 40 mg Documented By: KAT Azithromycin 500 mg/ Sodium (Chloride) 250 mls @ 125 mls/hr IV Q24H [facility] Last Infusion: 02/24/24 13:41 Dose: Infused Documented By: FAITH Dextrose (D5w) 1,000 mls @ 50 mls/hr IVCONT .Q20H [facility] Last Admin: 02/25/24 08:09 Dose: 50 mls/hr Documented By: KAT Magnesium Hydroxide (Milk Of Magnesia 30 Ml Oral.Susp) 30 ml PO DAILY PRN PRN Reason: Constipation Melatonin (Melatonin 3 Mg Tablet) 6 mg PO BEDTIME PRN PRN Reason: Insomnia Last Admin: 02/23/24 20:45 Dose: 6 mg Documented By: RACHEL Metoprolol Tartrate (Metoprolol Tartrate 25 Mg Tablet) 25 mg PO Q6H [facility]; Protocol Last Admin: 02/25/24 08:09 Dose: 25 mg Documented By: KAT Morphine Sulfate (Morphine Sulfate 2 Mg/Ml Cartridge) 2 mg IVPUSH Q2H PRN; Protocol PRN Reason: work of breathing Last Admin: 02/23/24 15:04 Dose: 2 mg Documented By: FAITH Ondansetron HCl (Ondansetron Hcl 4 Mg/2 Ml Vial) 4 mg IVPUSH Q8H PRN PRN Reason: Nausea and Vomiting Quetiapine Fumarate (Quetiapine Fumarate 25 Mg Tablet) 25 mg PO BID PRN PRN Reason: anxiety/restlessness Last Admin: 02/23/24 20:45 Dose: 25 mg Documented By: RACHEL Sodium Chloride (0.9 % Sodium Chloride Flush 3 Ml Syringe) 3 ml IVFSH [facility] Last Admin: 02/25/24 08:09 Dose: 3 ml Documented By: KAT Labs 02/25/24 06:39 02/25/24 06:39 Labs: Laboratory Results - last 24 hr 02/25/24 06:39 MCV 91.1 MCH 28.8 MCHC 31.6 RDW 15.5 Plt Count 181 MPV 11.1 Absolute Nucleated RBC 0.000 Nucleated RBC % (auto) 0.0 Anion Gap 16 Estim Creat Clear Calc 28.6 Estimated GFR 39 Fasting Glucose 114 H Calcium 8.6 Microbiology Microbiology Results: Microbiology 02/22/24 10:00 Urine Culture - Preliminary Urine clean catch - Clean Catch Midstream Assessment and Plan (1) Atrial fibrillation with RVR: Status: Acute (2) LAUREN (acute kidney injury): Status: Acute (3) Community acquired pneumonia: Status: Acute (4) Bilateral pleural effusion: Status: Acute (5) Acute on chronic systolic (congestive) heart failure: Status: Acute Plan 89M PMH of PAF on eliquis, PAD, CHF, CKD, HTN among others who presented to the hospital from SNF with increase weakness and fall. acute systolic CHF exacerbation and acute hypoxic respiratory failure and pleural effusion cxr with worsening edema, restarted on iv lasix, montior creatinine closely likely related on presistent Afib and low stroke volume Echo showing low EF of 25-30% Cardiology input appreciated, failed amiodarone therapy, try Metoprolol, consider hospice patient not interested in thoracentesis for bilateral effusions morphine as needed for work of breathing pneumonia IV Azithromycin and Ceftriaxone UTI follow up cultures, continue ceftriaxone LAUREN on CKD3 with metabolic acidosis and hematuria US showing right sided hydronephrosis Urology consult Nephrology following martinez placed, plan for bilateral ureteral stents deferred due to worsening respiratory status PAF with RvR rate in 90s-110s continue Eliquis and Metoprolol, DCed Amiodarone Decreased Eliquis to 2.5 bid given his age and weight - currently on hold for possible interventions DVT PPx Eliquis Goals of care: patient not interested in [employer]/hospice at this time, would like to continue with conservative medical care with DNR/DNI, would also be a good canditate for palliative care. HCP - Yuniel Desir [phone] reason for continued hospitalization: safe dispo Quality Stroke Does the patient have a stroke diagnosis?: No VTE Prior VTE?: No VTE Risk Level:: Medical - moderate - high VTE Device Contraindication: Treatment Not Indicated VTE Drug Contraindication: N/A - Med Ordered
[2024-02-25] MEDS: cefTRIAXone sodium 1 GM VIAL IVPUSH (12:18)
[2024-02-25] MEDS: Azithromycin 500 MG in 0.9 % Sodium Chloride 250 ML 125 MG IV (12:18)
[2024-02-26] VITALS (7 sets, daily range): BP systolic 100–123; BP diastolic 57–98; PULSE 79–97; RESP 16–20; TEMP 36–36.7; O2SAT 94–100
[2024-02-26] MEDS: Dextrose 5 % 1,000 ML 50 ML IVCONT ×2 (00:13→20:58)
[2024-02-26] MEDS: Metoprolol Tartrate 25 MG TABLET PO ×4 (03:21→20:53)
[2024-02-26 06:36] LABS: Hematocrit 45.8 % (42.0-52.0); Hemoglobin 14.3 g/dl (14.0-18.0); Mean Corpuscular HGB Conc 31.2 g/dl (31.0-36.0); Mean Corpuscular Hemoglobin 28.5 pg (27.0-33.0); Mean Corpuscular Volume 91.4 fL (80.0-98.0); Mean Platelet Volume 10.7 fL (9.4-12.4); Platelet Count 172 X10*3/uL (160-400); Red Blood Count 5.01 X10*6/uL (4.60-5.80); Red Cell Distribution Width 15.3 % (11.0-16.0); White Blood Count 8.5 X10*3/uL (4.8-10.8)
[2024-02-26 06:50] LABS: Anion Gap 13 (12-20); Blood Urea Nitrogen 30 mg/dL (9-16); Calcium 8.5 mg/dL (8.4-10.2); Carbon Dioxide 32 mmol/L (22-29); Chloride 104 mmol/L (96-108); Creatinine Clr Calc Pharmacy 33.3; Estimated Glomerular Filt Rate 47; Glucose Fasting 144 mg/dL (60-99); Potassium 3.2 mmol/L (3.3-5.1); Sodium 146 mmol/L (135-145)
[2024-02-26] MEDS: Potassium Chloride ER 20 MEQ TAB.ER.PRT 40 MEQ PO (08:16)
[2024-02-26] MEDS: Furosemide 40 MG/4 ML VIAL IVPUSH (08:16)
[2024-02-26] MEDS: 0.9 % Sodium Chloride Flush 3 ML SYRINGE IVFLUSH (08:17)
--- NOTE | 2024-02-26 08:43 | HO.PM.IMPN ---
Subjective Subjective Date of Service: 02/26/24 Interval History: slightly less weak Physical Exam Vital Signs: Vital Signs: Last Vital Signs Temp 98.0 F 02/26/24 07:51 Pulse 89 02/26/24 07:51 Resp 18 02/26/24 07:51 BP 123/76 02/26/24 07:51 Pulse Ox 100 02/26/24 07:51 O2 Del Method Room Air 02/26/24 07:51 O2 Flow Rate 2 02/25/24 23:05 BMI result Body Mass Index 21.1 lethargic, oriented x3, frail appearing, ill-appearing (though less than previous days), Decreased air movement bilaterally, no accessory muscles Urine has cleared Objective Data Active Medications Acetaminophen (Acetaminophen 325 Mg Tablet) 650 mg PO Q6H PRN PRN Reason: Pain, Mild (Pain Scale 1-3), fever or headache Last Admin: 02/23/24 20:44 Dose: 650 mg Documented By: RACHEL Apixaban (Apixaban 2.5 Mg Tablet) 2.5 mg PO BID [facility] Last Admin: 02/24/24 07:55 Dose: Not Given Documented By: FAITH Non-Admin Reason: Physician Held Med Benzonatate (Benzonatate 100 Mg Capsule) 100 mg PO TID PRN PRN Reason: Cough Last Admin: 02/17/24 23:41 Dose: 100 mg Documented By: BRENDEN Calcium Carbonate (Calcium Carbonate 750 Mg Tab.Chew) 750 mg PO Q4H PRN PRN Reason: Heartburn Ceftriaxone Sodium (Ceftriaxone Sodium 1 Gm Vial) 1 gm IVPUSH Q24H [facility] Last Admin: 02/25/24 12:18 Dose: 1 gm Documented By: KAT Furosemide (Furosemide 40 Mg/4 Ml Vial) 40 mg IVPUSH DAILY [facility]; Protocol Last Admin: 02/26/24 08:16 Dose: 40 mg Documented By: KAT Azithromycin 500 mg/ Sodium (Chloride) 250 mls @ 125 mls/hr IV Q24H [facility] Last Infusion: 02/25/24 14:42 Dose: Infused Documented By: KAT Dextrose (D5w) 1,000 mls @ 50 mls/hr IVCONT .Q20H [facility] Last Admin: 02/26/24 00:13 Dose: 50 mls/hr Documented By: ROWENA Magnesium Hydroxide (Milk Of Magnesia 30 Ml Oral.Susp) 30 ml PO DAILY PRN PRN Reason: Constipation Melatonin (Melatonin 3 Mg Tablet) 6 mg PO BEDTIME PRN PRN Reason: Insomnia Last Admin: 02/23/24 20:45 Dose: 6 mg Documented By: RACHEL Metoprolol Tartrate (Metoprolol Tartrate 25 Mg Tablet) 25 mg PO Q6H [facility]; Protocol Last Admin: 02/26/24 08:16 Dose: 25 mg Documented By: KAT Morphine Sulfate (Morphine Sulfate 2 Mg/Ml Cartridge) 2 mg IVPUSH Q2H PRN; Protocol PRN Reason: work of breathing Last Admin: 02/23/24 15:04 Dose: 2 mg Documented By: FAITH Ondansetron HCl (Ondansetron Hcl 4 Mg/2 Ml Vial) 4 mg IVPUSH Q8H PRN PRN Reason: Nausea and Vomiting Quetiapine Fumarate (Quetiapine Fumarate 25 Mg Tablet) 25 mg PO BID PRN PRN Reason: anxiety/restlessness Last Admin: 02/23/24 20:45 Dose: 25 mg Documented By: RACHEL Sodium Chloride (0.9 % Sodium Chloride Flush 3 Ml Syringe) 3 ml IVFLUSH [facility] Last Admin: 02/26/24 08:17 Dose: 3 ml Documented By: KAT Labs 02/26/24 06:10 02/26/24 06:10 Labs: Laboratory Results - last 24 hr 02/26/24 06:10 MCV 91.4 MCH 28.5 MCHC 31.2 RDW 15.3 Plt Count 172 MPV 10.7 Absolute Nucleated RBC 0.000 Nucleated RBC % (auto) 0.0 Anion Gap 13 Estim Creat Clear Calc 33.3 Estimated GFR 47 Fasting Glucose 144 H Calcium 8.5 Microbiology Microbiology Results: Microbiology 02/22/24 10:00 Urine Culture - Preliminary Urine clean catch - Clean Catch Midstream Culture too young to evaluate. Assessment and Plan (1) Atrial fibrillation with RVR: Status: Acute (2) LAUREN (acute kidney injury): Status: Acute (3) Community acquired pneumonia: Status: Acute (4) Bilateral pleural effusion: Status: Acute (5) Acute on chronic systolic (congestive) heart failure: Status: Acute Plan 89M PMH of PAF on eliquis, PAD, CHF, CKD, HTN among others who presented to the hospital from SNF with increase weakness and fall. acute systolic CHF exacerbation and acute hypoxic respiratory failure and pleural effusion cxr with worsening edema, restarted on iv lasix, monitor creatinine closely likely related on presistent Afib and low stroke volume Echo showing low EF of 25-30% Cardiology input appreciated, failed amiodarone therapy, continue Metoprolol patient not interested in thoracentesis for bilateral effusions morphine as needed for work of breathing pneumonia IV Azithromycin and Ceftriaxone UTI follow up cultures, continue ceftriaxone LAUREN on CKD3 with metabolic acidosis and hematuria US showing right sided hydronephrosis Urology consult Nephrology following martinez placed, plan for bilateral ureteral stents deferred for now due to acute illness, frailty PAF with RvR rate in 90s-110s continue Eliquis and Metoprolol, DCed Amiodarone Decreased Eliquis to 2.5 bid given his age and weight - currently on hold for possible interventions DVT PPx Eliquis Goals of care: 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 HCP - Yuniel Desir [phone] reason for continued hospitalization: weaning o2 Quality Stroke Does the patient have a stroke diagnosis?: No VTE Prior VTE?: No VTE Risk Level:: Medical - moderate - high VTE Device Contraindication: Treatment Not Indicated VTE Drug Contraindication: N/A - Med Ordered
[2024-02-26] MEDS: cefTRIAXone sodium 1 GM VIAL IVPUSH (11:50)
[2024-02-26] MEDS: Azithromycin 500 MG in 0.9 % Sodium Chloride 250 ML 125 MG IV (11:50)
[2024-02-26] MEDS: Morphine Sulfate 2 MG/ML CARTRIDGE IVPUSH (13:46)
[2024-02-27 03:10] VITALS: BP 105/66; PULSE 82; RESP 16; TEMP 36; O2SAT 97
[2024-02-27 03:28] VITALS: BP 105/66; PULSE 82
[2024-02-27] MEDS: Metoprolol Tartrate 25 MG TABLET PO ×2 (03:28→08:46)
[2024-02-27 05:37] LABS: Hematocrit 44.2 % (42.0-52.0); Hemoglobin 13.7 g/dl (14.0-18.0); Mean Corpuscular Hemoglobin 28.2 pg (27.0-33.0); Mean Corpuscular Volume 91.1 fL (80.0-98.0); Mean Platelet Volume 10.8 fL (9.4-12.4); Platelet Count 178 X10*3/uL (160-400); Red Blood Count 4.85 X10*6/uL (4.60-5.80); Red Cell Distribution Width 15.3 % (11.0-16.0); White Blood Count 8.1 X10*3/uL (4.8-10.8)
[2024-02-27 05:53] LABS: Anion Gap 14 (12-20); Blood Urea Nitrogen 28 mg/dL (9-16); Calcium 8.4 mg/dL (8.4-10.2); Carbon Dioxide 31 mmol/L (22-29); Chloride 103 mmol/L (96-108); Creatinine Clr Calc Pharmacy 32.4; Estimated Glomerular Filt Rate 45; Glucose Fasting 144 mg/dL (60-99); Potassium 3.5 mmol/L (3.3-5.1); Sodium 144 mmol/L (135-145)
[2024-02-27 07:35] VITALS: BP 98/54; PULSE 92; RESP 14; TEMP 37.2; O2SAT 99
[2024-02-27 08:46] VITALS: BP 118/71; PULSE 93
--- NOTE | 2024-02-27 08:54 | PM.DS ---
DS: Providers Provider Date of Service: 02/27/24 Date of admission: 02/17/24 17:47 Date of discharge: 02/27/24 Primary care physician: Bimal Velez MD Consults: 02/19/24 11:18 Consult to Nephrology Routine Consulting [place] [facility] Reason for consultation: LAUREN on CKD , CHF 02/19/24 13:48 Consult to Cardiology Routine Consulting Provider: [facility] Reason for consultation: CHF, pleural effusions 02/21/24 13:29 Consult to Urology Routine Consulting Provider: [facility] Reason for consultation: LAUREN With right sided Hydronephrosis for eval and rec. 02/24/24 18:01 Consult to Wound Care Routine Reason for consultation: breakdown to R upper buttock DS: Diagnosis Discharge Diagnosis (1) Atrial fibrillation with RVR: Status: Acute (2) LAUREN (acute kidney injury): Status: Acute (3) Community acquired pneumonia: Status: Acute (4) Bilateral pleural effusion: Status: Acute (5) Acute on chronic systolic (congestive) heart failure: Status: Acute DS: Summary Hospital Course Hospital Course: from initial hpi: 89 years old male with PMH of PAF on eliquis, PAD, CHF, CKD, HTN among others who presents to the hospital from SNF with increase weakness and fall. The patient was unable to provide any meaningful history as he did not know that he is in the hospital but reported from SNF and EMS that he become increasingly weak and lethargic over the past week with decreased PO intaked and stability. No chest pain, palpitations, SOB, nausea, vomiting, diarrhea or urinary symptoms. Presented to ED with rapid Afib that was controlled. CXR showing bilateral multifocal pneumonia with no hypoxia. Will be admitted for IV antibiotics and close monitoring. hospital course: Patient was admitted for acute systolic CHF and acute hypoxic respiratory failure complicated by bilateral pleural effusions likely related to persistent atrial fibrillation with rapid ventricular response, echo showed low EF of 25-30%. Was seen by Cardiology recommended discontinuing amiodarone as does not appear to be effective, was eventually controlled with metoprolol, on discharge will continue 50 mg b.i.d.. Patient was diuresed with IV Lasix and weaned off oxygen. On discharge will continue metolazone 5mg daily for maintenance, due to hypernatremia, should repeat labs in about 1 week. Patient was offered thoracentesis for his bilateral pleural effusions however was not interested at this time. For pneumonia completed course of ceftriaxone azithromycin. Course was complicated by urinary retention and urinary tract infection, urine cultures grew mixed gricelda was treated with ceftriaxone and will continue 5 more days of cefuroxime. For acute kidney injury on CKD 3 with metabolic acidosis and hematuria, ultrasound did show right-sided hydronephrosis was seen by Urology who initially plan for bilateral ureteral stents however due to patient's frailty and acute illness this was deferred. Patient will be discharged with Martinez catheter in place and should follow up with Urology as outpatient. For dysphagia was seen by CASS[facility] ARCHITECT who recommended NDD2 solids and thin liquids patient should continue to follow with [facility] ARCHITECT as outpatient. For chronic atrial fibrillation with rapid ventricular response was transitioned to metoprolol as mentioned. Was continued on Eliquis 2.5 mg b.i.d.. patient is now medically stable, will be discharged back to SNF, Time Attestation Discharge Coordination Time (in mins): 35 Quality: Safe Use of Opioids Does Pt have an Active Cancer Diagnosis on the Problem List?: No Quality: Stroke Does the patient have a stroke diagnosis?: No Physical Exam Vital Signs: Vital Signs: Last Vital Signs Temp 98.9 F 02/27/24 07:35 Pulse 93 02/27/24 08:46 Resp 14 02/27/24 07:35 BP 118/71 02/27/24 08:46 Pulse Ox 99 02/27/24 07:35 O2 Del Method Room Air 02/27/24 07:35 O2 Flow Rate 2 02/27/24 03:10 BMI result Body Mass Index 21.1 alert, oriented x3, frail appearing, chronically ill-appearing, but much more comfortable Decreased air movement bilaterally, no accessory muscles Urine has cleared DS: Data Data Completed and Pending Completed studies during hospitalization [Text1]: Procedures Detachment at Left Foot, Partial 1st Ray, Open Approach (03/03/21) Detachment at Left Foot, Partial 2nd Ray, Open Approach (03/03/21) Detachment at Left Foot, Partial 3rd Ray, Open Approach (03/03/21) Detachment at Left Foot, Partial 4th Ray, Open Approach (03/03/21) Detachment at Left Foot, Partial 5th Ray, Open Approach (03/03/21) Insertion of Infusion Device into Right Brachial Vein, Percutaneous Approach (10/18/20) Replacement of Left Hip Joint, Femoral Surface with Synthetic Substitute, Uncemented, Open Approach (10/18/20) Labs on day of discharge: Laboratory Results - last 24 hr 02/27/24 05:10 WBC 8.1 RBC 4.85 Hgb 13.7 L Hct 44.2 MCV 91.1 MCH 28.2 MCHC 31.0 RDW 15.3 Plt Count 178 MPV 10.8 Absolute Nucleated RBC 0.000 Nucleated RBC % (auto) 0.0 Sodium 144 Potassium 3.5 Chloride 103 Carbon Dioxide 31 H Anion Gap 14 BUN 28 H Creatinine 1.46 H Estim Creat Clear Calc 32.4 Estimated GFR 45 Fasting Glucose 144 H Calcium 8.4 Discharge Plan Discharge Anticipated Discharge Date/Time: 02/27/24 08:49 Patient Disposition: Xfer [facility] Discharge Diagnosis: chf, uti Referrals: [facility] [place] [Outside] - 1 Week (TRANSFER FOR RESUMPTION OF LONG-TERM CARE) Ron Oswald MD [Physician] - 1 Week Bimal Velez MD [Primary Care Provider] - 1 Week Discharge Medications: New metoprolol tartrate 25 mg Tablet 50 mg PO BID Qty: 0 0RF Protocol: Hold for SBP/HR < HOLD for SBP < : 90 HOLD for HR < : 60 cefuroxime axetil 500 mg tablet 500 mg PO BID Qty: 10 0RF metolazone 5 mg tablet 5 mg PO DAILY Qty: 100 0RF Continued acetaminophen 325 mg Tablet 650 mg PO Q4H PRN (Reason: Fever Or Pain) docusate sodium 100 mg Capsule 100 mg PO DAILY bisacodyl [Dulcolax (bisacodyl)] 10 mg Suppository 10 mg [place] DAILY PRN (Reason: Constipation) Rx Instructions: IF NO RESULT FROM MOM polyethylene glycol 3350 [Miralax] 17 gram Powder In Packet 17 g PO DAILY PRN (Reason: Constipation) sennosides [senna] 8.6 mg Tablet 17.2 mg PO BEDTIME dextromethorphan-guaifenesin 10-100 mg/5 mL Liquid 10 ml PO Q4H PRN (Reason: Cough) Fleet Enema 19-7 gram/118 mL Enema 118 ml W[place] DAILY PRN (Reason: Constipation) ammonium lactate 12 % Cream 1 appl TOPICAL BID Eliquis 2.5 mg tablet 2.5 mg PO BID Discontinued amiodarone 200 mg tablet 200 mg PO DAILY Qty: 90 1RF metoprolol tartrate 25 mg tablet 25 mg PO BEDTIME amlodipine [Norvasc] 2.5 mg tablet 2.5 mg PO DAILY Qty: 30 0RF Discharge Orders: Discharge Order (Routine); Ordered 02/27/24 Ordered By: Paulino Ferraro Diet: NDD2, honey thick liquids Activity on Discharge: As tolerated Stand Alone Forms: Patient Portal Discharge page Print Language: Eritrean Care Plan Goals: recovery Health Concerns: chf, urinary retention, uti, afib Plan of Treatment: 5 more days ceftin, maintain martinez for now - follow up with urology stop amio, start lopressor 50 bid start maintenance metolazone 5mg daily, check bmp in about 1 week Assessment: see above
--- NOTE | 2024-02-27 09:00 | P.PNNP_ITS ---
Subjective Subjective Date of Service: 02/27/24 Interval history: 89 y/o with a medical history of paroxysmal afib, PAD, CHF, HTN, CKD reportedly does not see a kidney doctor as outpatient. presented 02/16 with increased weakness, had fallen. Being treated for PNA, UTI and CHF exacerbation Nephrology consulted for LAUREN last baseline creatinine on file from 03/2021 was 1.39 creatinine 02/16 was 1.77, 02/17 was 1.62, . was 1.82, 02/19 2.19, 02/20 1.80, 02/21 is 1.67, 02/22 1.55, 02/23. 1.74, 02/24 1.65, 02/25 1.42, 02/26 1.46 UA +1 protein, +3 blood (3-5 RBCs), 3+leukocyte esterace no renal imaging this admission urine protein/creatinine ratio 1.41 02/19 sodium has been elevated though has improved slightly 02/26 to 144 diuretics intermittently on hold due to rising in creatinine, diuresis for pleural effusions; currently on 40mg IVP daily one episode of hypoperfusion on 02/17 BP 88/58 UOP 1800mL/last 24 horus renal ultrasound 02/19 shows echogenic parenchyma of right kidney as well as moderate to severe right hydronephrosis and proximal hydroureter. Limited evaluation of left kidney, which is smaller than right. Enlarge prostate. urology has been consulted, plan for cystoscopy and bilateral ureteral stents deferred due to acute illness and frail states Physical Exam 2 Vital Signs: Vital Signs: Last Vital Signs Temp 98.9 F 02/27/24 07:35 Pulse 93 02/27/24 08:46 Resp 14 02/27/24 07:35 BP 118/71 02/27/24 08:46 Pulse Ox 99 02/27/24 07:35 O2 Del Method Room Air 02/27/24 07:35 O2 Flow Rate 2 02/27/24 03:10 BMI result Body Mass Index 21.1 Const: General: no acute distress, alert and awake HEENT: Mouth: moist mucous membranes abnormal (dry) Resp: Effort & Inspection: normal respiratory effort Auscultation: d iminished lung sounds Cardio: Rate: regular rate Rhythm: regular rhythm Heart sounds: S1 normal heart sound present and S2 normal heart sound present GI: Palpation (GI): Soft to palpation and nontender : General: Yes no CVA tenderness Back/Spine/Pelvis: Back: no CVA tenderness Skin: Other: lower extremities michell Lesions: no lesions Rashes: no rashes Extrem: General: No edema Objective Data Labs 02/27/24 05:10 02/27/24 05:10 Labs: Laboratory Results - last 24 hr 02/27/24 05:10 WBC 8.1 RBC 4.85 Hgb 13.7 L Hct 44.2 MCV 91.1 MCH 28.2 MCHC 31.0 RDW 15.3 Plt Count 178 MPV 10.8 Absolute Nucleated RBC 0.000 Nucleated RBC % (auto) 0.0 Sodium 144 Potassium 3.5 Chloride 103 Carbon Dioxide 31 H Anion Gap 14 BUN 28 H Creatinine 1.46 H Estim Creat Clear Calc 32.4 Estimated GFR 45 Fasting Glucose 144 H Calcium 8.4 Microbiology Microbiology Results: Microbiology 02/22/24 10:00 Urine clean catch - Clean Catch Midstream Urine Culture - Final 02/21/24 09:32 Urine Other - Kidney Left Urine Culture - Final 02/17/24 12:37 Blood - Venous Blood Culture - Final No growth after 5 days. 02/17/24 12:24 Blood - Venous Blood Culture - Final No growth after 5 days. 02/17/24 Unknown Urine clean catch - Clean Catch Midstream Urine Culture - Final Procedures Date of Service Date of Service: 02/27/24 Assessment & Plan Assessment and plan (1) LAUREN (acute kidney injury): Status: Acute (2) Acute kidney injury superimposed on CKD: Status: Acute Plan Pt with LAUREN on CKD likely component of tubular injury as patient had reduced PO intake prior to admission, in setting of diuresis creatinine likely now at baseline recommend discontinuing D5W and encourage oral free water intake recommend discontinuing lasix IVP and start metolazone 5mg PO daily to decrease free water clearance and help keep sodium levels normal ANCA unremarkable, complements normal, serum and urine immunofixation without presence of monoclonal proteins urine protein/creatinine ratio elevated at 1.41 repeat urine culture from 02/20 no growth recommend avoid nephrotoxins recommend daily electrolyte and renal function studies continue supportive care, will continue to follow recommend outpatient nephrology follow up when discharged. Discussed with Dr Bourgeois Time Spent With Patient Time: Total time managing care of this patient today ____ minutes. Progress Note: Quality Stroke Does the patient have a stroke diagnosis?: No
--- NOTE | 2024-02-27 10:30 | MHC.CM.PN ---
DP: PT HAS BEEN MEDICALLY CLEARED FOR DC BACK TO [facility] [place] FOR RESUMPTION OF AUTOM[facility]IC [facility]PERATOR CARE. BLS TRANSPORT SET UP FOR 1 PM [facility]IA [place]. RN UPDATED. CENTER AND HCP BERNADINE NOTIFIED. FINAL IMM DELIVERED TO HCP.
[2024-02-27 11:25] VITALS: BP 109/75; PULSE 87; RESP 16; TEMP 36.9; O2SAT 98
--- NOTE | 2024-02-27 13:31 | HO.WOUND ---
Wound Consult: Initial 89yr old?male admitted to [facility] [place] on 02/17/24 - See progress notes and H&P for detailed history.? Wound consult placed for Right buttock wound.? Patient agreeable to assessment and photo documentation.? Patient denies pain and tenderness to the area. Patient is set for d/c back to his facility today. Sacrum Etiology: Unclear etiology - Bruise suspected Wound Bed: pink red tissue remains intact maroon pigmentation but remains blanchable at the time of my assessment Drainage / Odor: None Edges: ? irregular Felicia wound: ? No Induration, Fluctuance or Warmth noted Pain: denies Goals of Treatment: ? Off Load and protect from Moisture and friction with barrier cream. Etiology is unclear - the area remains intact and blanchable during my assessment. The tissue in person appears less red and dark compared to this photo - the photo appears more consistent with DTI but at the bedside this was not appreciated. 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 Recommend off loading pressure and barrier cream to protect from moisture and friction. Recommendations: 1. Turn and Reposition every 2 hours and as needed for patient comfort.? Use pillows or wedges to support off loading positions. 2. Off Load all bony prominences with use of pillows and heel boots if needed.? Apply Preventative foams where needed. ? 3. Monitor for incontinence and moisture control, use barrier creams when needed for prevention and treatment. 4. Provide adequate and supplemental nutrition.? 5.Continue low air loss mattress. 6. When applicable maintain blood glucose levels per Providers order. 7. Sacrum and Perianal - Off Load Pressure - Cleanse with PH balanced wipes or spray, pat dry. Apply barrier cream twice daily and PRN after episodes of incontience. Re-consult wound care Nurse for wound deterioration or wound changes.
--- NOTE | 2024-02-27 14:13 | MHC.SLORD ---
Speech Language Pathology Order Status: Pt seen for trials of liquid d/t pt c/o not wanting thickener. Pt tolerated thins with adequate oropharyngeal coordination, recc thins, texted MD prior to pt d/c today.
== END 2024-02-27 13:25 | disposition skilled nursing facility (03) | DRG 291 ==
LOC: HO.ED 17:12 → HO.EDOVER 17:53 → HO.S3 19:10
PROVIDERS: Nurse Practitioner Family; Physician Assistant Medical; Admitting Provider Student in an Organized Health Care Education/Training Program; Emergency Provider Student in an Organized Health Care Education/Training Program; PCP Internal Medicine; Visit Provider Internal Medicine
DX: I13.0 Hypertensive heart and chronic kidney disease with heart failure and stage 1 through stage 4 chronic kidney disease, or unspecified chronic kidney disease (principal); I50.23 Acute on chronic systolic (congestive) heart failure; J18.9 Pneumonia, unspecified organism; J96.01 Acute respiratory failure with hypoxia; N13.6 Pyonephrosis; F03.92 Unspecified dementia, unspecified severity, with psychotic disturbance; N17.9 Acute kidney failure, unspecified; E87.21 Acute metabolic acidosis; J91.8 Pleural effusion in other conditions classified elsewhere; E87.0 Hyperosmolality and hypernatremia; I48.19 Other persistent atrial fibrillation; I73.9 Peripheral vascular disease, unspecified; Z66 Do not resuscitate; R53.81 Other malaise; R31.9 Hematuria, unspecified; N18.30 Chronic kidney disease, stage 3 unspecified; Z20.822 Contact with and (suspected) exposure to COVID-19; Z88.0 Allergy status to penicillin; Z88.2 Allergy status to sulfonamides; Z79.01 Long term (current) use of anticoagulants; Z79.899 Other long term (current) drug therapy
CPT/HCPCS: 0241U; 36415; 71045; 71046; 71250; 74176; 76775; 80048; 80053; 81001; 82550; 82570; 82784; 82947; 83605; 83735; 83880; 84156; 84484; 85025; 85027; 85379; 86021; 86160; 86334; 86335; 87040; 87086; 92610; 93005; 93306; 97162; 99285; C1758; J0456; J0696; J1940; J2060; J2270; Q9957; Q9967

== ENCOUNTER → 2024-02-17 12:05 | Outpatient (BNV) | payer BC, SELFPAY | PROVIDERS: Admitting Provider Student in an Organized Health Care Education/Training Program; Emergency Provider Student in an Organized Health Care Education/Training Program; PCP Internal Medicine; Visit Provider Internal Medicine Cardiovascular Disease | DX: I48.91 Unspecified atrial fibrillation (principal) | CPT/HCPCS: 93010 ==

== ENCOUNTER 2024-02-17 17:47 | Outpatient (BNV) | payer BC, SELFPAY | END 2024-02-18 15:16 | PROVIDERS: Admitting Provider Student in an Organized Health Care Education/Training Program; Emergency Provider Student in an Organized Health Care Education/Training Program; PCP Internal Medicine; Visit Provider Internal Medicine Cardiovascular Disease | DX: I48.91 Unspecified atrial fibrillation (principal); I49.3 Ventricular premature depolarization | CPT/HCPCS: 93010 ==

== ENCOUNTER 2024-02-17 17:47 | Outpatient (BNV) | payer BC, SELFPAY | END 2024-02-20 07:00 | PROVIDERS: Admitting Provider Student in an Organized Health Care Education/Training Program; Emergency Provider Student in an Organized Health Care Education/Training Program; PCP Internal Medicine; Visit Provider Internal Medicine Cardiovascular Disease | DX: I35.2 Nonrheumatic aortic (valve) stenosis with insufficiency (principal); I34.0 Nonrheumatic mitral (valve) insufficiency; I36.1 Nonrheumatic tricuspid (valve) insufficiency | CPT/HCPCS: 93306 ==

== ENCOUNTER 2024-02-17 17:47 | Outpatient (BNV) | payer BC, SELFPAY | END 2024-02-22 10:43 | PROVIDERS: Admitting Provider Student in an Organized Health Care Education/Training Program; Emergency Provider Student in an Organized Health Care Education/Training Program; PCP Internal Medicine; Visit Provider Radiology Diagnostic Radiology | DX: N13.2 Hydronephrosis with renal and ureteral calculous obstruction (principal); J90 Pleural effusion, not elsewhere classified | CPT/HCPCS: 74176 ==

== ENCOUNTER 2024-02-17 17:47 | Outpatient (BNV) | payer BC, SELFPAY | END 2024-02-23 14:25 | PROVIDERS: Admitting Provider Student in an Organized Health Care Education/Training Program; Emergency Provider Student in an Organized Health Care Education/Training Program; PCP Internal Medicine; Visit Provider Radiology Diagnostic Radiology | DX: J81.0 Acute pulmonary edema (principal); J91.8 Pleural effusion in other conditions classified elsewhere | CPT/HCPCS: 71045 ==

== ENCOUNTER → 2024-02-17 17:47 | Outpatient (BNV) | payer BC, SELFPAY | PROVIDERS: Admitting Provider Student in an Organized Health Care Education/Training Program; Emergency Provider Student in an Organized Health Care Education/Training Program; PCP Internal Medicine; Visit Provider Internal Medicine Cardiovascular Disease | DX: J18.9 Pneumonia, unspecified organism (principal); I48.91 Unspecified atrial fibrillation | CPT/HCPCS: 99222 ==

== ENCOUNTER → 2024-02-17 17:47 | Outpatient (BNV) | payer BC, SELFPAY | PROVIDERS: Admitting Provider Student in an Organized Health Care Education/Training Program; Emergency Provider Student in an Organized Health Care Education/Training Program; PCP Internal Medicine; Visit Provider Urology | DX: N17.9 Acute kidney failure, unspecified (principal); N13.30 Unspecified hydronephrosis; N20.1 Calculus of ureter | CPT/HCPCS: 99223 ==

== ENCOUNTER → 2024-02-17 17:47 | Outpatient (BNV) | payer BC, SELFPAY | PROVIDERS: Admitting Provider Student in an Organized Health Care Education/Training Program; Emergency Provider Student in an Organized Health Care Education/Training Program; PCP Internal Medicine; Visit Provider Nurse Practitioner Family | DX: N17.9 Acute kidney failure, unspecified (principal); N18.9 Chronic kidney disease, unspecified | CPT/HCPCS: 99222; 99232 ==

== ENCOUNTER → 2024-02-17 17:47 | Outpatient (BNV) | payer BC, SELFPAY | PROVIDERS: Admitting Provider Student in an Organized Health Care Education/Training Program; Emergency Provider Student in an Organized Health Care Education/Training Program; PCP Internal Medicine; Visit Provider Student in an Organized Health Care Education/Training Program | DX: I48.91 Unspecified atrial fibrillation (principal); N17.9 Acute kidney failure, unspecified; J18.9 Pneumonia, unspecified organism; J90 Pleural effusion, not elsewhere classified; I50.23 Acute on chronic systolic (congestive) heart failure | CPT/HCPCS: 99223; 99233; 99239; 99497 ==

== ENCOUNTER 2024-03-05 15:04 | Inpatient (IN) | payer MEDICARE, BC, SELFPAY ==
--- NOTE | ~2024-03-05 | XR_ITS ---
EXAMINATION: XR CHEST CLINICAL INFORMATION: cough COMPARISON: Prior chest 02/23/2024 TECHNIQUE: Upright AP view of the chest and lateral view of the chest FINDINGS: There are bilateral pleural effusions overall small to moderate size on the left and small on the right best visualized on the lateral projection. Question minimal right perihilar opacity. Overall lungs are mostly clear compared with the prior x-ray. Cardiomediastinal silhouette normal. Bone and soft tissues unremarkable. XR/XR chest 2V IMPRESSION: Bilateral pleural effusions improved compared with the prior x-ray 02/23/2024. Bones of also significantly improved with perhaps some minimal residual opacity in the right perihilar region nonspecific. This could reflect atelectasis or persistent area of consolidation Electronically signed by: Bimal Peck MD 03/05/2024 05:13 PM [facility]
[2024-03-05 15:27] VITALS: BP 105/78; BP 118/80; PULSE 110; PULSE 84; RESP 21; TEMP 36.9; O2SAT 95; O2SAT 99; BMI 19.9
--- NOTE | 2024-03-05 15:32 | ED.GENADULT ---
HPI - General Adult General Chief complaint: Weakness Stated complaint: Abnormal labs Time Seen by Provider: 03/05/24 15:28 Source: EMS Mode of arrival: EMS Limitations: other (dementia) History of Present Illness HPI narrative: This is 89 years old male custodial resident center for evaluation because abnormal blood test (elevated BUN and creatinine) also abnormal chest x-ray. Patient has history of dementia the history is very limited. There is no reported fever no reported vomiting no reported diarrhea. He was recently discharged from [facility] on February 26 after been hospitalized with atrial fibrillation with RVR, and bilateral pleural effusion. Patient has an order for DNR DNI. Onset (ago): day(s) (1) Radiation: non-radiation Severity: mild Pain Consistency: constant Relieving factors: none Exacerbating factors: none Related Data Home Medications ?Medication ?Instructions ?Recorded ?Confirmed acetaminophen 325 mg tablet 650 mg PO Q4H PRN Fever Or Pain 03/03/21 02/17/24 bisacodyl 10 mg rectal suppository 10 mg CO DAILY PRN Constipation 03/03/21 02/17/24 (Dulcolax (bisacodyl)) docusate sodium 100 mg capsule 100 mg PO DAILY 03/03/21 02/17/24 polyethylene glycol 3350 17 gram 17 g PO DAILY PRN Constipation 03/03/21 02/17/24 oral powder packet (Miralax) sennosides 8.6 mg tablet (senna) 17.2 mg PO BEDTIME 03/03/21 02/17/24 ammonium lactate 12 % topical cream 1 appl topical BID Dry Skin 02/17/24 02/17/24 apixaban 2.5 mg tablet (Eliquis) 2.5 mg PO BID 02/17/24 02/17/24 dextromethorphan-guaifenesin 10 10 ml PO Q4H PRN Cough 02/17/24 02/17/24 mg-100 mg/5 mL oral liquid sodium phosphates 19 gram-7 118 ml CO DAILY PRN Constipation 02/17/24 02/17/24 gram/118 mL enema (Fleet Enema) Previous Rx's ?Medication ?Instructions ?Recorded cefuroxime axetil 500 mg tablet 500 mg PO BID #10 tabs 02/27/24 metolazone 5 mg tablet 5 mg PO DAILY #100 tabs 02/27/24 metoprolol tartrate 25 mg tablet 50 mg PO BID #0 tabs 02/27/24 Allergies Allergy/AdvReac Type Severity Reaction Status Date / Time streptomycin [Streptomycin] Allergy Mild UNKNOWN Verified 03/05/24 15:29 Penicillins Allergy Unknown unk Verified 03/05/24 15:29 Sulfa (Sulfonamide Allergy Unknown UNKNOWN Verified 03/05/24 15:29 Antibiotics) [SULFA (SULFONAMIDE ANTIBIOTICS)] Review of Systems Review of Systems: Limited because of the dementia PENDING SALE TO [facility] Past Medical History Medical History LAUREN (acute kidney injury) PAD (peripheral artery disease) Severe protein-calorie malnutrition Failure to thrive PAF (paroxysmal atrial fibrillation) Cardiomyopathy Candidal intertrigo Pressure sore Cellulitis Acute exacerbation of CHF (congestive heart failure) HTN (hypertension) HTN (hypertension) CHF (congestive heart failure) Cardiomyopathy, unspecified Persistent atrial fibrillation Atrial fibrillation Surgical History Hx of appendectomy Family History Family History Father No problems noted. Mother No problems noted. Social History Social History Household Members: None Household Members Other:: has cousin that lives next door, and neighbor is retired nurse that helps Housing: [facility] Do you presently have visiting nurse or other home services: No Alcohol intake: former Comment: sitter at bedside Patient Tobacco Use Status: Never used Tobacco Smoked in Last 30 Days: No Use of substances other than those prescribed or required for medical reasons: No Advance Directives: Yes Advance Directives on File: Yes Advance Directives Date on File: 04/29/20 Do you have a plan to hurt others: No Plan service: Yes Current occupational status: retired Current occupation: rt handed Physical Exam ED Vital Signs: Vital Signs - 24 hr 03/05/24 15:27 Temperature 98.4 F Pulse Rate 110 H Respiratory Rate 21 H Blood Pressure 105/78 Pulse Oximetry 95 Oxygen Delivery Method Room Air BMI result Body Mass Index 19.9 On physical examination looks chronically ill but in not acute distress. Const General: cooperative Nutritional Appearance: cachectic Orientation/consciousness: oriented to place and Other orientation findings (He is oriented to place he can tell me that he is at the hospital) [facility] Head: Yes normal to inspection Face and sinus: Yes normal facial exam Throat: Yes posterior oropharynx normal Neck Neck: Yes normal visual inspection Chest Chest palpation & inspection: normal inspection of the chest Resp Effort & Inspection: normal respiratory effort Auscultation: rhonchi Cardio Rhythm: abnormal rhythm GI Inspection: Yes normal to inspection Palpation (GI): Soft to palpation Other: He has an indwelling catheter Male General Exam: Yes normal external exam Neuro Other: He is oriented place, he he is no focal General: oriented to place Course Reevaluation(s) Reevaluation #1: Signed out to Dr Leonard labs are pending Time: 16:00 Medical Decision Making Medical Decision Making [facility] Narrative: This is chronically ill patient sent by the nursing facility because LAUREN pleural effusion increased weakness will check labs chest x-ray UA Differential Diagnosis Differential Diagnoses: The differential diagnosis associated with the presentation includes Urinary tract infection/dehydration/pneumonia Admission/Observation Consideration of admission/observation: Escalation of care including admission/observation considered Independent Interpretation I performed an independent interpretation of an: EKG Interpretation: Atrial fibrillation rate is 103 poor R-wave progression LVH Independent Historian Clinical information obtained from an independent historian. History obtained from or confirmed by: EMS (correction record) Discharge Plan Discharge Clinical Impression: Weakness Patient Disposition: Still a Patient Prescriptions: No Action acetaminophen 325 mg Tablet 650 mg PO Q4H PRN (Reason: Fever Or Pain) docusate sodium 100 mg Capsule 100 mg PO DAILY bisacodyl [Dulcolax (bisacodyl)] 10 mg Suppository 10 mg CO DAILY PRN (Reason: Constipation) Rx Instructions: IF NO RESULT FROM MOM polyethylene glycol 3350 [Miralax] 17 gram Powder In Packet 17 g PO DAILY PRN (Reason: Constipation) sennosides [senna] 8.6 mg Tablet 17.2 mg PO BEDTIME dextromethorphan-guaifenesin 10-100 mg/5 mL Liquid 10 ml PO Q4H PRN (Reason: Cough) Fleet Enema 19-7 gram/118 mL Enema 118 ml CO DAILY PRN (Reason: Constipation) ammonium lactate 12 % Cream 1 appl TOPICAL BID Eliquis 2.5 mg tablet 2.5 mg PO BID metoprolol tartrate 25 mg Tablet 50 mg PO BID Qty: 0 0RF Protocol: Hold for SBP/HR < HOLD for SBP < : 90 HOLD for HR < : 60 cefuroxime axetil 500 mg tablet 500 mg PO BID Qty: 10 0RF metolazone 5 mg tablet 5 mg PO DAILY Qty: 100 0RF Print Language: Kiswahili
--- NOTE | 2024-03-05 15:41 | ECG_ITS ---
Test Reason : CHEST PAIN Blood Pressure : / mmHG Vent. Rate : 103 BPM Atrial Rate : 000 BPM P-R Int : 000 ms QRS Dur : 102 ms QT Int : 338 ms P-R-T Axes : 000 079 244 degrees QTc Int : 442 ms Atrial fibrillation with rapid ventricular response Minimal voltage criteria for LVH, may be normal variant ( Jewell product ) Nonspecific ST and T wave abnormality Abnormal ECG When compared with ECG of 18-FEB-2024 15:16, No significant change was found Referred By: Zheng Catalan Electronically Signed By:Cortes Adhikari
[2024-03-05 16:02] VITALS: BP 99/70; PULSE 98; RESP 15; O2SAT 95
[2024-03-05] MEDS: 0.9 % Sodium Chloride 500 ML IV (16:24)
[2024-03-05 16:25] LABS: MANUAL DIFF FLAG NO
[2024-03-05 16:26] LABS: Basophils Percent Auto 0.3 % (0-2); Eosinophils Percent Auto 0.5 % (0-4); Hematocrit 49.9 % (42.0-52.0); Hemoglobin 16.1 g/dl (14.0-18.0); Imm Gran Abs Auto 0.07 X10*3/uL (0.00-0.03); Imm Gran Pct Auto 0.9 % (0.0-0.4); Lymphocytes Absolute Auto 0.9 X10*3/uL (1.2-4.9); Lymphocytes Percent Auto 11.6 % (20-40); Mean Corpuscular HGB Conc 32.3 g/dl (31.0-36.0); Mean Corpuscular Hemoglobin 28.9 pg (27.0-33.0); Mean Corpuscular Volume 89.4 fL (80.0-98.0); Mean Platelet Volume 10.7 fL (9.4-12.4); Monocytes Absolute Auto 0.7 X10*3/uL (0.1-1.2); Monocytes Percent Auto 8.5 % (2-11); Neutrophils Absolute Auto 6.2 x10*3/uL (2.0-8.3); Neutrophils Percent Auto 78.2 % (45-73); Platelet Count 215 X10*3/uL (160-400); Red Blood Count 5.58 X10*6/uL (4.60-5.80); Red Cell Distribution Width 15.8 % (11.0-16.0)
[2024-03-05 16:58] LABS: Troponin-I High Sensitivity 13.9 ng/L (<3.5-35.0)
[2024-03-05 17:40] LABS: Alanine Aminotransferase 25 U/L (0-40); Albumin Level 2.7 g/dL (3.5-5.0); Alkaline Phosphatase 92 U/L (39-117); Anion Gap 11 (12-20); Aspartate Amino Transferase 31 U/L (5-37); Bilirubin Total 0.8 mg/dL (0.0-1.0); Blood Urea Nitrogen 37 mg/dL (9-16); Calcium 8.4 mg/dL (8.4-10.2); Carbon Dioxide 32 mmol/L (22-29); Chloride 104 mmol/L (96-108); Creatinine Clr Calc Pharmacy 19.4; Estimated Glomerular Filt Rate 27; Glucose Random 114 mg/dL (60-115); Potassium 4.3 mmol/L (3.3-5.1); Sodium 143 mmol/L (135-145); Total Protein 5.8 g/dL (6.5-8.0)
[2024-03-05 17:44] VITALS: BP 111/68; PULSE 98; RESP 16; O2SAT 97
[2024-03-05 19:24] VITALS: BP 120/75; PULSE 97; RESP 15; TEMP 36.3; O2SAT 97
--- NOTE | 2024-03-05 19:49 | P.HPHOSP_ITS ---
<Statement entered by Capo Cruz MD - 03/06/24 19:06> I reviewed the History and Physical with NELSON Gutierrez and agree with the findings and plan of care as documented. History of Present Illness Date of Service: 03/05/24 Attending physician on admission: Capo Cruz Chief Complaint: weakness, abnormal labs Patient is an 89-year-old male with a past medical history significant for dementia, persistent AFib, bilateral pleural effusions, PAD, CHF (EF 20-25%), and hypertension, who presented to the ED today due to weakness and abnormal labs from [facility]. Due to the patient's cognitive status, history is difficult to obtain. He denies any chest pain, shortness of breath, lower extremity edema, abdominal pain, or dysuria. He was recently discharged on 02/27/2024 after an admission for AFib with RVR and bilateral pleural effusions. Review of Systems 2 Review of Systems: Difficult to obtain due to mental status, likely inaccurate Constitutional: Constitutional: Denies chills, Denies fatigue, Denies fever(s) and Denies headache(s) Eyes: Eyes: Denies change in vision ENT: Denies headache(s), Denies nasal congestion, Denies nasal discharge and Denies sore throat Cardiovascular: Cardiovascular: Denies chest pain, Denies rapid heart rate, Denies leg edema and Denies dyspnea Respiratory: Respiratory: Denies chest congestion, Denies cough, Denies dyspnea and Denies wheezing Gastrointestinal: Gastrointestinal: Denies constipation, Denies diarrhea, Denies nausea and Denies vomiting Genitourinary: Genitourinary: Denies dysuria Musculoskeletal: Musculoskeletal: Denies myalgias Integumentary/Breasts: Skin/Breast: Denies rash Neurologic: Reports as per HPI and Denies headache(s) Psychiatric: Psychiatric: Reports as per HPI Endocrine: Endocrine: Denies fatigue Hematologic/Lymphatic: Hematologic/Lymphatic: Denies easy bleeding Allergic/Immunologic: Allergic/Immunologic: Denies wheezing [facility] Medical History (Updated 03/05/24 @ 20:08 by Rachel Gutierrez PA-C) LAUREN (acute kidney injury) PAD (peripheral artery disease) Severe protein-calorie malnutrition Failure to thrive PAF (paroxysmal atrial fibrillation) Cardiomyopathy Candidal intertrigo Pressure sore Cellulitis Acute exacerbation of CHF (congestive heart failure) HTN (hypertension) HTN (hypertension) CHF (congestive heart failure) Cardiomyopathy, unspecified Persistent atrial fibrillation Atrial fibrillation Family History Father No problems noted. Mother No problems noted. Surgical History Hx of appendectomy Social History Household Members: None Household Members Other:: has cousin that lives next door, and neighbor is retired nurse that helps Housing: Assisted Do you presently have visiting nurse or other home services: No Alcohol intake: former Comment: sitter at bedside Patient Tobacco Use Status: Never used Tobacco Smoked in Last 30 Days: No Use of substances other than those prescribed or required for medical reasons: No Advance Directives: Yes Advance Directives on File: Yes Advance Directives Date on File: 04/29/20 Do you have a plan to hurt others: No Plan service: Yes Current occupational status: retired Current occupation: rt handed Narrative: No smoking, alcohol or drug use. Lives at [facility]. Meds Allergies Allergy/AdvReac Type Severity Reaction Status Date / Time streptomycin [Streptomycin] Allergy Mild UNKNOWN Verified 03/05/24 15:29 Penicillins Allergy Unknown unk Verified 03/05/24 15:29 Sulfa (Sulfonamide Allergy Unknown UNKNOWN Verified 03/05/24 15:29 Antibiotics) [SULFA (SULFONAMIDE ANTIBIOTICS)] Active Medications: Current Medications Acetaminophen (Acetaminophen 325 Mg Tablet) 650 mg PO Q6H PRN PRN Reason: Pain, Mild (Pain Scale 1-3), fever or headache Calcium Carbonate (Calcium Carbonate 750 Mg Tab.Chew) 750 mg PO Q4H PRN PRN Reason: Heartburn Magnesium Hydroxide (Milk Of Magnesia 30 Ml Oral.Susp) 30 ml PO DAILY PRN PRN Reason: Constipation Melatonin (Melatonin 3 Mg Tablet) 6 mg PO BEDTIME PRN PRN Reason: Insomnia Ondansetron HCl (Ondansetron Hcl 4 Mg/2 Ml Vial) 4 mg IVPUSH Q8H PRN PRN Reason: Nausea and Vomiting Sodium Chloride (0.9 % Sodium Chloride Flush 3 Ml Syringe) 3 ml IVFLUSH [facility] Home Medications ?Medication ?Instructions ?Recorded ?Confirmed ?Last Taken ?Type acetaminophen 325 mg tablet 650 mg PO Q4H PRN Fever Or Pain 03/03/21 03/05/24 Unknown History bisacodyl 10 mg rectal suppository 10 mg [place] DAILY PRN Constipation 03/03/21 03/05/24 Unknown History (Dulcolax (bisacodyl)) docusate sodium 100 mg capsule 100 mg PO DAILY 03/03/21 03/05/24 Unknown History polyethylene glycol 3350 17 gram 17 g PO DAILY PRN Constipation 03/03/21 03/05/24 Unknown History oral powder packet (Miralax) sennosides 8.6 mg tablet (senna) 17.2 mg PO BEDTIME 03/03/21 03/05/24 Unknown History ammonium lactate 12 % topical cream 1 appl topical BID Dry Skin 02/17/24 03/05/24 Unknown History apixaban 2.5 mg tablet (Eliquis) 2.5 mg PO BID 02/17/24 03/05/24 Unknown History dextromethorphan-guaifenesin 10 10 ml PO Q4H PRN Cough 02/17/24 03/05/24 Unknown History mg-100 mg/5 mL oral liquid sodium phosphates 19 gram-7 118 ml [place] DAILY PRN Constipation 02/17/24 03/05/24 Unknown History gram/118 mL enema (Fleet Enema) ascorbic acid (vitamin C) 500 mg 500 mg PO BID 03/05/24 03/05/24 Unknown History tablet xndigeyzxveo-xssseibk-kalisa 1 tab PO DAILY 03/05/24 03/05/24 Unknown History tablet (Multivitamin 50 Plus tablet) Physical Exam 2 Vital Signs and Narrative: Vital Signs: Last Vital Signs Temp 97.4 F 03/05/24 19:24 Pulse 97 03/05/24 19:24 Resp 15 03/05/24 19:24 BP 120/75 03/05/24 19:24 Pulse Ox 97 03/05/24 19:24 O2 Del Method Room Air 03/05/24 19:24 BMI result Body Mass Index 19.9 General: AOx3, no acute distress Resp: crackles in lower lung bases bilaterally, no wheezing or rhonchi CVS: mild tachycardia, irregularly irregular GI: +BS, NT, no distention Skin: Warm, dry Neuro: PEERL, no facial droop, able to move extremities without difficulty Extremities: No LE edema Psych: Appropriate affect Results Labs 03/05/24 16:21 03/05/24 17:18 Labs: Laboratory Results - last 24 hr 03/05/24 03/05/24 16:21 17:18 MCV 89.4 MCH 28.9 MCHC 32.3 RDW 15.8 Plt Count 215 MPV 10.7 Immature Gran % (Auto) 0.9 H Neut % (Auto) 78.2 H Lymph % (Auto) 11.6 L [place] % (Auto) 8.5 Eos % (Auto) 0.5 Baso % (Auto) 0.3 Lymph # (Auto) 0.9 L [place] # (Auto) 0.7 Eos # (Auto) 0.0 Baso # (Auto) 0.0 Abs Immat Gran (auto) 0.07 H Absolute Neuts (auto) 6.2 Absolute Nucleated RBC 0.000 Nucleated RBC % (auto) 0.0 Anion Gap 11 L Estim Creat Clear Calc 19.4 Estimated GFR 27 Random Glucose 114 Calcium 8.4 Total Bilirubin 0.8 AST 31 ALT 25 Alkaline Phosphatase 92 Troponin I High Sens 13.9 Total Protein 5.8 L Albumin 2.7 L Imaging Radiologist's Impressions: Impressions Chest X-Ray 03/05/24 15:42 IMPRESSION: Bilateral pleural effusions improved compared with the prior x-ray 02/23/2024. Bones of also significantly improved with perhaps some minimal residual opacity in the right perihilar region nonspecific. This could reflect atelectasis or persistent area of consolidation Electronically signed by: Bimal Peck MD 03/05/2024 05:13 PM [facility] Assessment and Plan (1) Acute kidney injury superimposed on CKD: Status: Acute (2) CHF (congestive heart failure): Qualifiers: Heart failure chronicity: acute Heart failure type: unspecified Q ualified Code(s): I50.9 - Heart failure, unspecified Status: Chronic (3) Weakness: Status: Acute (4) Persistent atrial fibrillation: Status: Chronic Plan Patient is an 89-year-old male with a past medical history significant for dementia, persistent AFib, bilateral pleural effusions, PAD, CHF (EF 20-25%), and hypertension, who presented to the ED today due to weakness and abnormal labs from [facility]. Labs are consistent with LAUREN, creatinine elevated from baseline. Bilateral pleural effusions improved from previous chest x-ray. AFib with rate borderline controlled, poor R-wave progression. While examining patient, nurse noted that Perknis catheter has not drained at all today. Bladder scan showed 426 cc. LAUREN - malfunctioning Perkins catheter, replaced in ED - bladder scan with 426 cc prior to catheter replacement - given CHF we will hold on further fluids, was given 500 mL NS in ED - encourage PO fluids - monitor BMP Persistent atrial fibrillation - EKG with borderline rate control, 90s to 100s and poor R-wave progression - difficult control on last admission, amiodarone was discontinued and ultimately controlled on the metoprolol - continue metoprolol and Eliquis Bilateral pleural effusions - improved from previous chest x-ray - no further treatment needed at this time CHF, no acute exacerbation - given 500ml NS in ED for LAUREN, will hold on further IVF at this time - hold metolazone due to LAUREN HTN - BP good - continue metoprolol DNR/DNI VTE prophy: eliquis Patient with acute LAUREN complicated by malfunctioning Perkins catheter and chronic CHF, requiring admission for gentle re-hydration and monitoring for at least 2 midnights stay. Quality Stroke Does the patient have a stroke diagnosis?: No VTE Prior VTE?: No VTE Risk Level:: Medical - moderate - high VTE Device Contraindication: Treatment Not Indicated VTE Drug Contraindication: N/A - Med Ordered
[2024-03-05 20:00] VITALS: BP 107/74; PULSE 102; RESP 19; TEMP 36.4; O2SAT 94
--- NOTE | 2024-03-05 20:21 | PHA.MEDREC ---
Addendum entered by Misty Herman RPh 03/05/24 20:25: Reviewed by [facility] Original Note: Pharmacy Consult ? Medication Reconciliation Pharmacy has completed the medication reconciliation. Utilized list from Bartol[facility] Cabrera to confirm med list.
[2024-03-05] MEDS: Ascorbic Acid 500 MG TABLET PO (21:14)
[2024-03-05] MEDS: Apixaban 2.5 MG TABLET PO (21:14)
[2024-03-05] MEDS: Sennosides 8.6 MG TABLET 17.2 MG PO (21:14)
[2024-03-05 21:15] VITALS: BP 106/59; PULSE 101
[2024-03-05] MEDS: Metoprolol Tartrate 50 MG TABLET PO (21:15)
[2024-03-06] VITALS (9 sets, daily range): BP systolic 101–135; BP diastolic 53–93; PULSE 71–109; RESP 15–18; TEMP 36.1–37; O2SAT 93–98; BMI 18.8
[2024-03-06] MEDS: 0.9 % Sodium Chloride Flush 3 ML SYRINGE IVFLUSH ×4 (00:22→21:33)
--- NOTE | 2024-03-06 02:18 | PC.NURSE ---
Martinez cath leaking no urine in martinez bag.Irrigated martinez with 50 cc of NS martinez immediately drained 600cc tea colored urine.
[2024-03-06 04:42] LABS: Appearance Urine Turbid; Glucose Urine UA Negative (Negative); Leukocyte Esterase Urine Large (3+) (Negative); Nitrite Urine Negative (Negative); PH 5.5 (5.0-9.0); Specific Gravity - Urine 1.015 (1.005-1.025); UMIC TRIGGER UACC YES; Urine Blood Large (3+) (Negative); Urine Ketones Negative (Negative); Urine Protein 100 (2+) mg/dL (Neg-Trace)
[2024-03-06 04:44] LABS: Bacteria Urine 2+ (None Seen); Color Urine Brown; RBC Urine >20 /HPF (0-2); UACC Culture Trigger YES; WBC Urine >50 /HPF (0-5)
[2024-03-06 07:00] LABS: MANUAL DIFF FLAG NO
[2024-03-06 07:09] LABS: Basophils Percent Auto 0.3 % (0-2); Eosinophils Absolute Auto 0.1 X10*3/uL (0.0-0.4); Eosinophils Percent Auto 0.8 % (0-4); Hematocrit 48.7 % (42.0-52.0); Hemoglobin 15.3 g/dl (14.0-18.0); Imm Gran Abs Auto 0.08 X10*3/uL (0.00-0.03); Imm Gran Pct Auto 1.1 % (0.0-0.4); Lymphocytes Absolute Auto 1.2 X10*3/uL (1.2-4.9); Lymphocytes Percent Auto 16.5 % (20-40); Mean Corpuscular HGB Conc 31.4 g/dl (31.0-36.0); Mean Corpuscular Hemoglobin 28.5 pg (27.0-33.0); Mean Corpuscular Volume 90.9 fL (80.0-98.0); Mean Platelet Volume 11.3 fL (9.4-12.4); Monocytes Absolute Auto 0.7 X10*3/uL (0.1-1.2); Monocytes Percent Auto 9.4 % (2-11); Neutrophils Absolute Auto 5.3 x10*3/uL (2.0-8.3); Neutrophils Percent Auto 71.9 % (45-73); Platelet Count 211 X10*3/uL (160-400); Red Blood Count 5.36 X10*6/uL (4.60-5.80); Red Cell Distribution Width 15.9 % (11.0-16.0); White Blood Count 7.4 X10*3/uL (4.8-10.8)
[2024-03-06 07:33] LABS: Anion Gap 16 (12-20); Blood Urea Nitrogen 37 mg/dL (9-16); Calcium 8.7 mg/dL (8.4-10.2); Carbon Dioxide 32 mmol/L (22-29); Chloride 101 mmol/L (96-108); Creatinine Clr Calc Pharmacy 21.7; Estimated Glomerular Filt Rate 33; Glucose Random 105 mg/dL (60-115); Sodium 145 mmol/L (135-145)
--- NOTE | 2024-03-06 07:44 | P.PNIM_ITS ---
Subjective Subjective Date of Service: 03/06/24 Interval History: f/u on weakness, lauren , and uti he seems better this morning with no specific complaint, UA from this morning is positive for uti Physical Exam 2 Vital Signs: Vital Signs: Last Vital Signs Temp 98.6 F 03/06/24 07:25 Pulse 96 03/06/24 07:25 Resp 16 03/06/24 07:25 BP 107/73 03/06/24 07:25 Pulse Ox 97 03/06/24 07:25 O2 Del Method Room Air 03/06/24 07:25 BMI result Body Mass Index 18.8 General: AO X , no acute distress Resp: CTA bilateral CVS: S1,S2,RRR GI: +BS, NT, no distention Skin: No rash Neuro: motor grossly intact Psych: appropriate affect Objective Data Active Medications Acetaminophen (Acetaminophen 325 Mg Tablet) 650 mg PO Q6H PRN PRN Reason: Pain, Mild (Pain Scale 1-3), fever or headache Apixaban (Apixaban 2.5 Mg Tablet) 2.5 mg PO BID [facility] Last Admin: 03/05/24 21:14 Dose: 2.5 mg Documented By: SRINIVASA Ascorbic Acid (Ascorbic Acid 500 Mg Tablet) 500 mg PO BID [facility] Last Admin: 03/05/24 21:14 Dose: 500 mg Documented By: SRINIVASA Calcium Carbonate (Calcium Carbonate 750 Mg Tab.Chew) 750 mg PO Q4H PRN PRN Reason: Heartburn Ceftriaxone Sodium (Ceftriaxone Sodium 1 Gm Vial) 1 gm IVPUSH Q24H [facility] Guaifenesin/Dextromethorphan (Guaifenesin Dm 100/10/5 Ml 5 Ml Syrup) 10 ml PO Q4H PRN PRN Reason: Cough Magnesium Hydroxide (Milk Of Magnesia 30 Ml Oral.Susp) 30 ml PO DAILY PRN PRN Reason: Constipation Melatonin (Melatonin 3 Mg Tablet) 6 mg PO BEDTIME PRN PRN Reason: Insomnia Metoprolol Tartrate (Metoprolol Tartrate 50 Mg Tablet) 50 mg PO BID [facility]; Protocol Last Admin: 03/05/24 21:15 Dose: 50 mg Documented By: SRINIVASA Multivitamins/Vitamin C (Multivitamin Tablet) 1 tab PO DAILY [facility] Ondansetron HCl (Ondansetron Hcl 4 Mg/2 Ml Vial) 4 mg IVPUSH Q8H PRN PRN Reason: Nausea and Vomiting Senna (Sennosides 8.6 Mg Tablet) 17.2 mg PO BEDTIME [facility] Last Admin: 03/05/24 21:14 Dose: 17.2 mg Documented By: SRINIVASA Sodium Chloride (0.9 % Sodium Chloride Flush 3 Ml Syringe) 3 ml IVFLUSH QSHIFT [facility] Last Admin: 03/06/24 00:22 Dose: 3 ml Documented By: SRINIVASA Labs 03/06/24 06:20 03/06/24 06:20 Labs: Laboratory Results - last 24 hr 03/05/24 03/05/24 03/06/24 16:21 17:18 04:10 MCV 89.4 MCH 28.9 MCHC 32.3 RDW 15.8 Plt Count 215 MPV 10.7 Immature Gran % (Auto) 0.9 H Neut % (Auto) 78.2 H Lymph % (Auto) 11.6 L [place] % (Auto) 8.5 Eos % (Auto) 0.5 Baso % (Auto) 0.3 Lymph # (Auto) 0.9 L [place] # (Auto) 0.7 Eos # (Auto) 0.0 Baso # (Auto) 0.0 Abs Immat Gran (auto) 0.07 H Absolute Neuts (auto) 6.2 Absolute Nucleated RBC 0.000 Nucleated RBC % (auto) 0.0 Anion Gap 11 L Estim Creat Clear Calc 19.4 Estimated GFR 27 Random Glucose 114 Calcium 8.4 Total Bilirubin 0.8 AST 31 ALT 25 Alkaline Phosphatase 92 Troponin I High Sens 13.9 Total Protein 5.8 L Albumin 2.7 L Urine Color Brown A Urine Appearance Turbid Urine pH 5.5 Ur Specific [place] 1.015 Urine Protein 100 (2+) H Urine Glucose (UA) Negative Urine Ketones Negative Urine Blood Large (3+) H Urine Nitrite Negative Ur Leukocyte Esterase Large (3+) H Urine RBC >20 H Urine WBC >50 Ur Squamous Epith Cells 3-5 Urine Bacteria 2+ Hyaline Casts 3-5 03/06/24 06:20 MCV 90.9 MCH 28.5 MCHC 31.4 RDW 15.9 Plt Count 211 MPV 11.3 Immature Gran % (Auto) 1.1 H Neut % (Auto) 71.9 Lymph % (Auto) 16.5 L [place] % (Auto) 9.4 Eos % (Auto) 0.8 Baso % (Auto) 0.3 Lymph # (Auto) 1.2 [place] # (Auto) 0.7 Eos # (Auto) 0.1 Baso # (Auto) 0.0 Abs Immat Gran (auto) 0.08 H Absolute Neuts (auto) 5.3 Absolute Nucleated RBC 0.000 Nucleated RBC % (auto) 0.0 Anion Gap 16 Estim Creat Clear Calc 21.7 Estimated GFR 33 Random Glucose 105 Calcium 8.7 Total Bilirubin AST ALT Alkaline Phosphatase Troponin I High Sens Total Protein Albumin Urine Color Urine Appearance Urine pH Ur Specific [place] Urine Protein Urine Glucose (UA) Urine Ketones Urine Blood Urine Nitrite Ur Leukocyte Esterase Urine RBC Urine WBC Ur Squamous Epith Cells Urine Bacteria Hyaline Casts Assessment and Plan (1) Persistent atrial fibrillation: Status: Chronic (2) UTI (urinary tract infection): Status: Acute Plan 89/m with dementia, persistent AFib, bilateral pleural effusions, PAD, CHF (EF 20-25%), and hypertension, who presented to the ED today due to weakness and abnormal labs from [facility]. Labs are consistent with LAUREN, creatinine elevated from baseline. Bilateral pleural effusions improved from previous chest x-ray. AFib with rate borderline controlled, poor R-wave progression. While examining patient, nurse noted that Perkins catheter has not drained at all today. Bladder scan showed 426 cc. UA is positive for UTI LAUREN d/t malfunctioning Perkins catheter, replaced in ED -improving UTI--culture pending -ceftriaxone started 03/06 Persistent atrial fibrillation, rate controlled. -continue metoprolol -eliquis for stroke prevention Bilateral pleural effusions, related to CHF - improved from previous chest x-ray - no further treatment needed at this time CHF, no acute exacerbation - given 500ml NS in ED for LAUREN, will hold on further IVF at this time - hold metolazone due to LAUREN HTN - BP good - continue metoprolol DNR/DNI VTE prophy: eliquis Need for inpt: LAUREN complicated by malfunctioning Perkins catheter and chronic CHF, requiring admission for gentle re-hydration and monitoring for at least 2 midnights stay. Quality Stroke Does the patient have a stroke diagnosis?: No VTE Prior VTE?: No VTE Risk Level:: Medical - moderate - high VTE Device Contraindication: Treatment Not Indicated VTE Drug Contraindication: N/A - Med Ordered
[2024-03-06] MEDS: Metoprolol Tartrate 50 MG TABLET PO ×2 (07:58→21:32)
[2024-03-06] MEDS: Multivitamin TABLET 1 TAB PO (07:58)
[2024-03-06] MEDS: Apixaban 2.5 MG TABLET PO ×2 (07:58→21:32)
[2024-03-06] MEDS: Ascorbic Acid 500 MG TABLET PO ×2 (07:58→21:33)
[2024-03-06] MEDS: cefTRIAXone sodium 1 GM VIAL IVPUSH (07:59)
--- NOTE | 2024-03-06 11:34 | PC.NURSE ---
attempt to call HCP for update, phone line busy
--- NOTE | 2024-03-06 12:03 | MHC.CLN ---
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
[2024-03-06] MEDS: Sennosides 8.6 MG TABLET 17.2 MG PO (21:32)
[2024-03-07 03:07] VITALS: BP 132/69; PULSE 86; RESP 16; TEMP 36.1; O2SAT 97
[2024-03-07 06:00] VITALS: BMI 19.0
[2024-03-07 06:37] LABS: MANUAL DIFF FLAG NO
[2024-03-07 06:49] LABS: Basophils Percent Auto 0.3 % (0-2); Eosinophils Absolute Auto 0.1 X10*3/uL (0.0-0.4); Eosinophils Percent Auto 0.9 % (0-4); Imm Gran Abs Auto 0.06 X10*3/uL (0.00-0.03); Imm Gran Pct Auto 0.9 % (0.0-0.4); Lymphocytes Absolute Auto 1.1 X10*3/uL (1.2-4.9); Lymphocytes Percent Auto 15.9 % (20-40); Mean Corpuscular HGB Conc 31.3 g/dl (31.0-36.0); Mean Corpuscular Hemoglobin 28.2 pg (27.0-33.0); Mean Corpuscular Volume 90.4 fL (80.0-98.0); Mean Platelet Volume 11.5 fL (9.4-12.4); Monocytes Absolute Auto 0.6 X10*3/uL (0.1-1.2); Monocytes Percent Auto 9.7 % (2-11); Neutrophils Absolute Auto 4.8 x10*3/uL (2.0-8.3); Neutrophils Percent Auto 72.3 % (45-73); Platelet Count 210 X10*3/uL (160-400); Red Blood Count 5.31 X10*6/uL (4.60-5.80); Red Cell Distribution Width 15.9 % (11.0-16.0); White Blood Count 6.6 X10*3/uL (4.8-10.8)
[2024-03-07 07:07] LABS: Anion Gap 15 (12-20); Blood Urea Nitrogen 34 mg/dL (9-16); Calcium 8.7 mg/dL (8.4-10.2); Carbon Dioxide 31 mmol/L (22-29); Chloride 102 mmol/L (96-108); Creatinine Clr Calc Pharmacy 24.2; Estimated Glomerular Filt Rate 37; Glucose Random 113 mg/dL (60-115); Potassium 3.8 mmol/L (3.3-5.1); Sodium 144 mmol/L (135-145)
[2024-03-07 07:32] VITALS: BP 123/82; PULSE 91; RESP 16; TEMP 36; O2SAT 98
[2024-03-07] MEDS: 0.9 % Sodium Chloride Flush 3 ML SYRINGE IVFLUSH ×3 (07:48→21:00)
[2024-03-07] MEDS: cefTRIAXone sodium 1 GM VIAL IVPUSH (07:48)
[2024-03-07] MEDS: Multivitamin TABLET 1 TAB PO (07:49)
[2024-03-07] MEDS: Ascorbic Acid 500 MG TABLET PO ×2 (07:49→21:00)
[2024-03-07] MEDS: Metoprolol Tartrate 50 MG TABLET PO ×2 (07:49→21:00)
[2024-03-07] MEDS: Apixaban 2.5 MG TABLET PO ×2 (07:49→21:00)
[2024-03-07 11:29] VITALS: BP 137/67; PULSE 80; RESP 12; TEMP 36.3; O2SAT 95
--- NOTE | 2024-03-07 11:30 | HO.PM.IMPN ---
Subjective Subjective Date of Service: 03/07/24 Interval History: f/u on weakness, lauren , and uti still frail looking, no specific complaints lauren is better Physical Exam Vital Signs: Vital Signs: Last Vital Signs Temp 97.4 F 03/07/24 11:29 Pulse 80 03/07/24 11:29 Resp 12 03/07/24 11:29 BP 137/67 03/07/24 11:29 Pulse Ox 95 03/07/24 11:29 O2 Del Method Room Air 03/07/24 11:29 BMI result Body Mass Index 19.0 General: AO X , no acute distress Resp: CTA bilateral CVS: S1,S2,RRR GI: +BS, NT, no distention Skin: No rash Neuro: motor grossly intact Psych: appropriate affect Objective Data Active Medications Acetaminophen (Acetaminophen 325 Mg Tablet) 650 mg PO Q6H PRN PRN Reason: Pain, Mild (Pain Scale 1-3), fever or headache Apixaban (Apixaban 2.5 Mg Tablet) 2.5 mg PO BID [facility]ENDING [facility] TO [facility] Last Admin: 03/07/24 07:49 Dose: 2.5 mg Documented By: CANDY Ascorbic Acid (Ascorbic Acid 500 Mg Tablet) 500 mg PO BID [facility]ENDING [facility] TO [facility] Last Admin: 03/07/24 07:49 Dose: 500 mg Documented By: CANDY Calcium Carbonate (Calcium Carbonate 750 Mg Tab.Chew) 750 mg PO Q4H PRN PRN Reason: Heartburn Ceftriaxone Sodium (Ceftriaxone Sodium 1 Gm Vial) 1 gm IVPUSH Q24H [facility] Last Admin: 03/07/24 07:48 Dose: 1 gm Documented By: CANDY Guaifenesin/Dextromethorphan (Guaifenesin Dm 100/10/5 Ml 5 Ml Syrup) 10 ml PO Q4H PRN PRN Reason: Cough Magnesium Hydroxide (Milk Of Magnesia 30 Ml Oral.Susp) 30 ml PO DAILY PRN PRN Reason: Constipation Melatonin (Melatonin 3 Mg Tablet) 6 mg PO BEDTIME PRN PRN Reason: Insomnia Metoprolol Tartrate (Metoprolol Tartrate 50 Mg Tablet) 50 mg PO BID [facility]; Protocol Last Admin: 03/07/24 07:49 Dose: 50 mg Documented By: CANDY Multivitamins/Vitamin C (Multivitamin Tablet) 1 tab PO DAILY [facility] Last Admin: 03/07/24 07:49 Dose: 1 tab Documented By: CANDY Ondansetron HCl (Ondansetron Hcl 4 Mg/2 Ml Vial) 4 mg IVPUSH Q8H PRN PRN Reason: Nausea and Vomiting Senna (Sennosides 8.6 Mg Tablet) 17.2 mg PO BEDTIME [facility] Last Admin: 03/06/24 21:32 Dose: 17.2 mg Documented By: BRENDEN Sodium Chloride (0.9 % Sodium Chloride Flush 3 Ml Syringe) 3 ml IVFLUSH QSHIFT [facility] Last Admin: 03/07/24 07:48 Dose: 3 ml Documented By: CANDY Labs 03/07/24 05:35 03/07/24 05:35 Labs: Laboratory Results - last 24 hr 03/07/24 05:35 MCV 90.4 MCH 28.2 MCHC 31.3 RDW 15.9 Plt Count 210 MPV 11.5 Immature Gran % (Auto) 0.9 H Neut % (Auto) 72.3 Lymph % (Auto) 15.9 L [place] % (Auto) 9.7 Eos % (Auto) 0.9 Baso % (Auto) 0.3 Lymph # (Auto) 1.1 L [place] # (Auto) 0.6 Eos # (Auto) 0.1 Baso # (Auto) 0.0 Abs Immat Gran (auto) 0.06 H Absolute Neuts (auto) 4.8 Absolute Nucleated RBC 0.000 Nucleated RBC % (auto) 0.0 Anion Gap 15 Estim Creat Clear Calc 24.2 Estimated GFR 37 Random Glucose 113 Calcium 8.7 Assessment and Plan (1) Persistent atrial fibrillation: Status: Chronic (2) UTI (urinary tract infection): Status: Acute Plan 89/m with dementia, persistent AFib, bilateral pleural effusions, PAD, CHF (EF 20-25%), and hypertension, who presented to the ED today due to weakness and abnormal labs from [facility]. Labs are consistent with LAUREN, creatinine elevated from baseline. Bilateral pleural effusions improved from previous chest x-ray. AFib with rate borderline controlled, poor R-wave progression. While examining patient, nurse noted that Perkins catheter has not drained at all today. Bladder scan showed 426 cc. UA is positive for UTI LAUREN d/t malfunctioning Perkins catheter, replaced in ED -cratinine is improving UTI--culture pending -ceftriaxone started 12/3 Persistent atrial fibrillation, rate controlled. -continue metoprolol -eliquis for stroke prevention Bilateral pleural effusions, related to CHF - improved from previous chest x-ray - no further treatment needed at this time CHF, no acute exacerbation - given 500ml NS in ED for LAUREN, will hold on further IVF at this time - hold metolazone due to LAUREN HTN - BP good - continue metoprolol DNR/DNI VTE prophy: eliquis Need for inpt: LAUREN complicated by malfunctioning Perkins catheter and chronic CHF, requiring admission for gentle re-hydration and monitoring for at least 2 midnights stay. Pt with frequent hospitalization, frailg and over condition worsening, will discuss hospice care with HCP Quality Stroke Does the patient have a stroke diagnosis?: No VTE Prior VTE?: No VTE Risk Level:: Medical - moderate - high VTE Device Contraindication: Treatment Not Indicated VTE Drug Contraindication: N/A - Med Ordered
--- NOTE | 2024-03-07 11:46 | MHC.CLN ---
F/U PT IS MODERATELY MALNOURISHED. DIET RX: GRD M/S=APPROPRIATE INTAKE APPEARS TO BE POOR, 0-25%. ENSURE TID ADDED TO INCREASE NUTRITIONAL INTAKE. SUPPLEMENT PROVIDES 1050 KCALS, 60 G PROTEIN. MONITOR PO INTAKE AND ENCOURAGE SUPPLEMENTS. FOLLOW FOR PLAN OF CARE.
--- NOTE | 2024-03-07 15:28 | MHC.CM.PN ---
Per MD rounds patient has not been medically cleared for discharge. DP return to [facility] via BLS.
--- NOTE | 2024-03-07 15:44 | P.CDIM_ITS ---
PROVIDER RESPONSE TEXT: To clarify, the appropriate diagnosis supported by the clinical indicators: Systolic: chronic QUERY TEXT: PHYSICIAN'S DOCUMENTATION REQUEST Date of Query: 03/07/2024 01:34 PM EST Patient Name: Radhames Daugherty Admit Date: 03/06/2024 Dear Joey Chavarria MD, A review of the medical record indicates additional documentation may be needed. Please review below and update the documentation accordingly. Clinical Indicators: CHF, no acute exacerbation CHF (EF 20-25%) Please provide further specificity regarding the most likely type and acuity of CHF you are evaluatin g, treating, or monitoring. Systolic Please specify if Acute, Chronic, or Acute on chronic, or Unable to determine Diastolic Please specify if Acute, Chronic, or Acute on chronic, or Unable to determine Combined Systolic/Diastolic Please specify if Acute, Chronic, or Acute on chronic, or Unable to determine Other (explain) Clinically unable to determine (explain) Thank you, Shamika Wilkins RN Use of terms such as suspected, likely, concern for, or probable (associated with a specific diagnosi s that is being evaluated, monitored, or treated as if it exists) are acceptable and can be coded in the inpatient se tting, when documented at the time of discharge. Please use your independent medical judgment in providing your response. THIS QUERY IS PART OF THE PERMANENT MEDICAL RECORD
--- NOTE | 2024-03-07 15:44 | P.CDIM_ITS ---
PROVIDER RESPONSE TEXT: To clarify, the appropriate diagnosis supported by the clinical indicators: Yes, UTI is related to / associated with / due to Perkins catheter QUERY TEXT: PHYSICIAN'S DOCUMENTATION REQUEST Date of Query: 03/07/2024 01:29 PM EST Patient Name: Radhames Daugherty Admit Date: 03/06/2024 Dear Joey Chavarria MD, A review of the medical record indicates additional documentation may be needed. Please review below and update the documentation accordingly. Documentation includes the conditions of UTI and Perkins catheter. Clinical Indicators: UTI--culture pending -ceftriaxone started 03/06 malfunctioning Perkins catheter, replaced in ED Please clarify the relationship between these conditions: Yes, UTI is related to / associated with / due to Perkins catheter No, UTI is not related to / associated with / due to Perkins catheter Other (explain) Clinically unable to determine (explain) Thank you, Shamika Wilkins RN Use of terms such as suspected, likely, concern for, or probable (associated with a specific diagnosi s that is being evaluated, monitored, or treated as if it exists) are acceptable and can be coded in the inpatient se tting, when documented at the time of discharge. Please use your independent medical judgment in providing your response. THIS QUERY IS PART OF THE PERMANENT MEDICAL RECORD
--- NOTE | 2024-03-07 15:47 | P.CDIM_ITS ---
PROVIDER RESPONSE TEXT: To clarify, the appropriate diagnosis supported by the clinical indicators: Underweight QUERY TEXT: PHYSICIAN'S DOCUMENTATION REQUEST Date of Query: 03/07/2024 01:37 PM EST Patient Name: Radhames Daugherty Admit Date: 03/06/2024 Dear Joey Chavarria MD, A review of the medical record indicates additional documentation may be needed. Please review below and update the documentation accordingly. Clinical Indicators: Height: ( ) 5'10 Weight: ( ) 60 kg BMI: ( ) 19.0 Other Clinical Notes Supporting Significance of the BMI: Per Nutritional Risk Assessment 03/06/24: chew/swallow problem, on therapeutic diet PMH: Severe Protein Calorie Malnutrition If possible, please provide an associated diagnosis related to the abnormal BMI, such as: Underweight Weight loss Cachexia Anorexia Severe Protein Calorie Malnutrition Other (explain) Clinically unable to determine (explain) Thank you, Shamiak Wilkins RN Use of terms such as suspected, likely, concern for, or probable (associated with a specific diagnosi s that is being evaluated, monitored, or treated as if it exists) are acceptable and can be coded in the inpatient se tting, when documented at the time of discharge. Please use your independent medical judgment in providing your response. THIS QUERY IS PART OF THE PERMANENT MEDICAL RECORD
[2024-03-07 15:51] VITALS: BP 114/75; PULSE 70; RESP 16; TEMP 36.1; O2SAT 94
[2024-03-07 20:00] VITALS: BP 114/68; PULSE 93; RESP 16; TEMP 36.6; O2SAT 97
[2024-03-07] MEDS: Sennosides 8.6 MG TABLET 17.2 MG PO (21:00)
[2024-03-07] MEDS: Melatonin 3 MG TABLET 6 MG PO (21:00)
[2024-03-07 23:44] VITALS: BP 115/71; PULSE 90; RESP 16; TEMP 36.7; O2SAT 96
[2024-03-08 04:00] VITALS: BP 114/75; PULSE 88; RESP 16; TEMP 36.2; O2SAT 98
[2024-03-08 05:36] VITALS: BMI 18.8
[2024-03-08 06:43] LABS: MANUAL DIFF FLAG NO
[2024-03-08 07:02] LABS: Basophils Percent Auto 0.3 % (0-2); Eosinophils Absolute Auto 0.1 X10*3/uL (0.0-0.4); Eosinophils Percent Auto 0.9 % (0-4); Hematocrit 46.2 % (42.0-52.0); Hemoglobin 14.8 g/dl (14.0-18.0); Imm Gran Abs Auto 0.05 X10*3/uL (0.00-0.03); Imm Gran Pct Auto 0.7 % (0.0-0.4); Lymphocytes Percent Auto 13.7 % (20-40); Mean Corpuscular Hemoglobin 28.9 pg (27.0-33.0); Mean Corpuscular Volume 90.2 fL (80.0-98.0); Mean Platelet Volume 11.6 fL (9.4-12.4); Monocytes Absolute Auto 0.7 X10*3/uL (0.1-1.2); Neutrophils Absolute Auto 5.5 x10*3/uL (2.0-8.3); Neutrophils Percent Auto 74.4 % (45-73); Platelet Count 170 X10*3/uL (160-400); Red Blood Count 5.12 X10*6/uL (4.60-5.80); Red Cell Distribution Width 15.9 % (11.0-16.0); White Blood Count 7.4 X10*3/uL (4.8-10.8)
[2024-03-08 07:10] LABS: Anion Gap 15 (12-20); Blood Urea Nitrogen 36 mg/dL (9-16); Calcium 8.8 mg/dL (8.4-10.2); Carbon Dioxide 26 mmol/L (22-29); Chloride 105 mmol/L (96-108); Creatinine Clr Calc Pharmacy 28.6; Estimated Glomerular Filt Rate 45; Glucose Random 111 mg/dL (60-115); Potassium 3.9 mmol/L (3.3-5.1); Sodium 142 mmol/L (135-145)
[2024-03-08 07:25] VITALS: BP 112/70; PULSE 98; RESP 18; TEMP 36.4; O2SAT 98
[2024-03-08 08:04] VITALS: BP 112/70; PULSE 98
[2024-03-08] MEDS: cefTRIAXone sodium 1 GM VIAL IVPUSH (08:04)
[2024-03-08] MEDS: 0.9 % Sodium Chloride Flush 3 ML SYRINGE IVFLUSH (08:04)
[2024-03-08] MEDS: Metoprolol Tartrate 50 MG TABLET PO (08:04)
[2024-03-08] MEDS: Multivitamin TABLET 1 TAB PO (08:05)
[2024-03-08] MEDS: Ascorbic Acid 500 MG TABLET PO (08:05)
[2024-03-08] MEDS: Apixaban 2.5 MG TABLET PO (08:05)
--- NOTE | 2024-03-08 09:59 | HO.PM.IMPN ---
Subjective Subjective Date of Service: 03/08/24 Interval History: f/u on weakness, sam , and uti still frail looking, no specific complaints sam is better Physical Exam Vital Signs: Vital Signs: Last Vital Signs Temp 97.6 F 03/08/24 07:25 Pulse 98 03/08/24 08:04 Resp 18 03/08/24 07:25 BP 112/70 03/08/24 08:04 Pulse Ox 98 03/08/24 07:25 O2 Del Method Room Air 03/08/24 07:25 BMI result Body Mass Index 18.8 Objective Data Active Medications Acetaminophen (Acetaminophen 325 Mg Tablet) 650 mg PO Q6H PRN PRN Reason: Pain, Mild (Pain Scale 1-3), fever or headache Apixaban (Apixaban 2.5 Mg Tablet) 2.5 mg PO BID [facility] Last Admin: 03/08/24 08:05 Dose: 2.5 mg Documented By: STEPHANIE Ascorbic Acid (Ascorbic Acid 500 Mg Tablet) 500 mg PO BID [facility] Last Admin: 03/08/24 08:05 Dose: 500 mg Documented By: STEPHANIE Calcium Carbonate (Calcium Carbonate 750 Mg Tab.Chew) 750 mg PO Q4H PRN PRN Reason: Heartburn Ceftriaxone Sodium (Ceftriaxone Sodium 1 Gm Vial) 1 gm IVPUSH Q24H [facility] Last Admin: 03/08/24 08:04 Dose: 1 gm Documented By: STEPHANIE Guaifenesin/Dextromethorphan (Guaifenesin Dm 100/10/5 Ml 5 Ml Syrup) 10 ml PO Q4H PRN PRN Reason: Cough Magnesium Hydroxide (Milk Of Magnesia 30 Ml Oral.Susp) 30 ml PO DAILY PRN PRN Reason: Constipation Melatonin (Melatonin 3 Mg Tablet) 6 mg PO BEDTIME PRN PRN Reason: Insomnia Last Admin: 03/07/24 21:00 Dose: 6 mg Documented By: BRENDEN Metoprolol Tartrate (Metoprolol Tartrate 50 Mg Tablet) 50 mg PO BID [facility]; Protocol Last Admin: 03/08/24 08:04 Dose: 50 mg Documented By: STEPHANIE Multivitamins/Vitamin C (Multivitamin Tablet) 1 tab PO DAILY [facility] Last Admin: 03/08/24 08:05 Dose: 1 tab Documented By: STEPHANIE Ondansetron HCl (Ondansetron Hcl 4 Mg/2 Ml Vial) 4 mg IVPUSH Q8H PRN PRN Reason: Nausea and Vomiting Senna (Sennosides 8.6 Mg Tablet) 17.2 mg PO BEDTIME [facility] Last Admin: 03/07/24 21:00 Dose: 17.2 mg Documented By: BRENDEN Sodium Chloride (0.9 % Sodium Chloride Flush 3 Ml Syringe) 3 ml IVFLUSH QSHIFT [facility] Last Admin: 03/08/24 08:04 Dose: 3 ml Documented By: STEPHANIE Labs 03/08/24 06:42 03/08/24 06:42 Labs: Laboratory Results - last 24 hr 03/08/24 06:42 MCV 90.2 MCH 28.9 MCHC 32.0 RDW 15.9 Plt Count 170 MPV 11.6 Immature Gran % (Auto) 0.7 H Neut % (Auto) 74.4 H Lymph % (Auto) 13.7 L [place] % (Auto) 10.0 Eos % (Auto) 0.9 Baso % (Auto) 0.3 Lymph # (Auto) 1.0 L [place] # (Auto) 0.7 Eos # (Auto) 0.1 Baso # (Auto) 0.0 Abs Immat Gran (auto) 0.05 H Absolute Neuts (auto) 5.5 Absolute Nucleated RBC 0.000 Nucleated RBC % (auto) 0.0 Anion Gap 15 Estim Creat Clear Calc 28.6 Estimated GFR 45 Random Glucose 111 Calcium 8.8 Microbiology Microbiology Results: Microbiology 03/06/24 Unknown Urine Culture - Final Urine Catheterized - Perkins Catheter No growth. Quality Stroke Does the patient have a stroke diagnosis?: No VTE Prior VTE?: No VTE Risk Level:: Medical - moderate - high VTE Device Contraindication: Treatment Not Indicated VTE Drug Contraindication: N/A - Med Ordered
--- NOTE | 2024-03-08 10:27 | P.DS_ITS ---
DS: Providers Provider Date of Service: 03/08/24 Date of admission: 03/05/24 19:46 Primary care physician: Bimal Velez MD DS: Diagnosis Discharge Diagnosis (1) Persistent atrial fibrillation: Status: Chronic (2) UTI (urinary tract infection): Status: Acute DS: Summary Hospital Course Hospital Course: admission hpi Chief Complaint: weakness, abnormal labs Patient is an 89-year-old male with a past medical history significant for dementia, persistent AFib, bilateral pleural effusions, PAD, CHF (EF 20-25%), and hypertension, who presented to the ED today due to weakness and abnormal labs from [facility]. Due to the patient's cognitive status, history is difficult to obtain. He denies any chest pain, shortness of breath, lower extremity edema, abdominal pain, or dysuria. He was recently discharged on 02/27/2024 after an admission for AFib with RVR and bilateral pleural effusions. Hospital course: Patient presented with generalized weakness, malfuctinong follow catheter and found to have UTI, and LAUREN LAUREN d/t malfunctioning Perkins catheter, replaced in ED, Creatine is back to baseline UTI--culture no growth, he's been treated with Ceftriaxone and will change to Ceftin for total of 7 days -ceftriaxone started 03/06 Persistent atrial fibrillation, rate controlled. Continue metoprolol and eliquis Bilateral pleural effusions, related to CHF - improved from previous chest x-ray - no further treatment needed at this time CHF, no acute exacerbation HTN - continue metoprolol DNR/DNI Given the patient?s frequent hospitalizations, progressive decline, and overall poor prognosis, hospice care should be considered. I discussed this option with the healthcare proxy, and they are in agreement, hospice care will be implemented at the SNF Time Attestation Discharge Coordination Time (in mins): 45 Quality: Safe Use of Opioids Does Pt have an Active Cancer Diagnosis on the Problem List?: No Quality: Stroke Does the patient have a stroke diagnosis?: No Physical Exam Vital Signs: Vital Signs: Last Vital Signs Temp 97.6 F 03/08/24 07:25 Pulse 98 03/08/24 08:04 Resp 18 03/08/24 07:25 BP 112/70 03/08/24 08:04 Pulse Ox 98 03/08/24 07:25 O2 Del Method Room Air 03/08/24 07:25 BMI result Body Mass Index 18.8 General: AO X2 , no acute distress Resp: CTA bilateral CVS: S1,S2,RRR GI: +BS, NT, no distention Skin: No rash Neuro: motor grossly intact Psych: appropriate affect DS: Data Data Completed and Pending Completed studies during hospitalization [Text1]: Procedures Labs on day of discharge: Laboratory Results - last 24 hr 03/08/24 06:42 WBC 7.4 RBC 5.12 Hgb 14.8 Hct 46.2 MCV 90.2 MCH 28.9 MCHC 32.0 RDW 15.9 Plt Count 170 MPV 11.6 Immature Gran % (Auto) 0.7 H Neut % (Auto) 74.4 H Lymph % (Auto) 13.7 L [place] % (Auto) 10.0 Eos % (Auto) 0.9 Baso % (Auto) 0.3 Lymph # (Auto) 1.0 L [place] # (Auto) 0.7 Eos # (Auto) 0.1 Baso # (Auto) 0.0 Abs Immat Gran (auto) 0.05 H Absolute Neuts (auto) 5.5 Absolute Nucleated RBC 0.000 Nucleated RBC % (auto) 0.0 Sodium 142 Potassium 3.9 Chloride 105 Carbon Dioxide 26 Anion Gap 15 BUN 36 H Creatinine 1.47 H Estim Creat Clear Calc 28.6 Estimated GFR 45 Random Glucose 111 Calcium 8.8 Discharge Plan Discharge Anticipated Discharge Date/Time: 03/08/24 10:28 Patient Disposition: Xfer LT Discharge Diagnosis: UTI, generalized weakness, renal failure Referrals: Bartolome Cabrera [Outside] - 1 Week Bimal Velez MD [Primary Care Provider] - 1 Week Discharge Medications: Continued acetaminophen 325 mg Tablet 650 mg PO Q4H MDD 3 Gm/day PRN (Reason: Fever Or Pain) docusate sodium 100 mg Capsule 100 mg PO DAILY bisacodyl [Dulcolax (bisacodyl)] 10 mg Suppository 10 mg NM DAILY PRN (Reason: Constipation) Rx Instructions: IF NO RESULT FROM MOM polyethylene glycol 3350 [Miralax] 17 gram Powder In Packet 17 g PO DAILY PRN (Reason: Constipation) sennosides [senna] 8.6 mg Tablet 17.2 mg PO BEDTIME ascorbic acid (vitamin C) 500 mg Tablet 500 mg PO BID Multivitamin 50 Plus Tablet 1 tab PO DAILY dextromethorphan-guaifenesin 10-100 mg/5 mL Liquid 10 ml PO Q4H PRN (Reason: Cough) Fleet Enema 19-7 gram/118 mL Enema 118 ml NM DAILY PRN (Reason: Constipation) Rx Instructions: If no result from Dulcolax with in 2 hours ammonium lactate 12 % Cream 1 appl TOPICAL BID Eliquis 2.5 mg tablet 2.5 mg PO BID metoprolol tartrate 25 mg Tablet 50 mg PO BID Qty: 0 0RF Protocol: Hold for SBP/HR < HOLD for SBP < : 90 HOLD for HR < : 60 metolazone 5 mg tablet 5 mg PO DAILY Qty: 100 0RF Discharge Orders: Discharge Order (Routine); Ordered 03/08/24 Ordered By: Joey Chavarria Diet: Advance to usual diet Activity on Discharge: As tolerated Stand Alone Forms: Patient Portal Discharge page Print Language: [place]ralt[place] Care Plan Goals: recovery from uti, weakness, and kidney failure Health Concerns: uti weakness renal failure cognitive impairment Plan of Treatment: take cefuroxime for uti continue other medications follow up with our doctor in a week hospice intake at the SNF--discussed with HCP and they agreable Assessment: see above
[2024-03-08 12:00] VITALS: BP 111/74; PULSE 83; RESP 18; TEMP 36.2; O2SAT 95
--- NOTE | 2024-03-08 12:02 | MHC.CM.PN ---
IMM 03/06/24 Patient will return to [facility] via BLS. HCP Yane was contacted about the discharge and is agreeable to the transfer. 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
== END 2024-03-08 16:03 | DRG 699 ==
LOC: HO.ED 15:41 → HO.EDOVER 19:52 → HO.S3 23:52
PROVIDERS: Admitting Provider Physician Assistant; Emergency Provider Emergency Medicine; PCP Internal Medicine; Visit Provider Internal Medicine
DX: T83.511A Infection and inflammatory reaction due to indwelling urethral catheter, initial encounter (principal); I48.19 Other persistent atrial fibrillation; I50.22 Chronic systolic (congestive) heart failure; N17.9 Acute kidney failure, unspecified; Z68.1 Body mass index [BMI] 19.9 or less, adult; R63.6 Underweight; N39.0 Urinary tract infection, site not specified; I11.0 Hypertensive heart disease with heart failure; Z66 Do not resuscitate; F03.90 Unspecified dementia, unspecified severity, without behavioral disturbance, psychotic disturbance, mood disturbance, and anxiety; Z79.01 Long term (current) use of anticoagulants; Z79.899 Other long term (current) drug therapy
CPT/HCPCS: 36415; 71046; 80048; 80053; 81001; 84484; 85025; 87086; 93005; 99285; C1758; J0696

== ENCOUNTER → 2024-03-05 15:41 | Outpatient (BNV) | payer BC, SELFPAY | PROVIDERS: Admitting Provider Physician Assistant; Emergency Provider Emergency Medicine; PCP Internal Medicine; Visit Provider Internal Medicine Cardiovascular Disease | DX: I48.91 Unspecified atrial fibrillation (principal) | CPT/HCPCS: 93010 ==

== ENCOUNTER → 2024-03-05 19:46 | Outpatient (BNV) | payer BC, SELFPAY | PROVIDERS: Admitting Provider Physician Assistant; Emergency Provider Emergency Medicine; PCP Internal Medicine; Visit Provider Internal Medicine | DX: N17.9 Acute kidney failure, unspecified (principal); N18.9 Chronic kidney disease, unspecified; I50.9 Heart failure, unspecified; R53.1 Weakness; I48.19 Other persistent atrial fibrillation; N39.0 Urinary tract infection, site not specified | CPT/HCPCS: 99223; 99232; 99239 ==